=== PATIENT | female | born 1950 | race African-American/Black ===

== ENCOUNTER 2017-06-25 12:19 | Emergency (ER) | payer OTHER ==
[~2017-06-25] VITALS: Ht 163.8 cm; Wt 93.9 kg
[~2017-06-25 12:19] MED LIST: ASPIRIN EC81 MG PO; AZOR 5-40 MG T1 EACH PO; CEFUROXIME250 MG PO; CELEXA20 MG PO; CORICIDIN HBP1 EACH PO; GABAPENTIN300 MG PO; HYDROCHLOROTHIA25 MG PO; ISOSORBIDE MONO30 MG PO; LETROZOLE2.5 MG PO; LEVEMIR 3M100 UNITS/ SQ; LOSARTAN POTAS100 MG PO; LUNESTA3 MG PO; MOTRIN800 MG PO; NASONEX17 GM; NOVOLOG100 UNITS1; PROVENTIL HFA6.7 GM; TRADJENTA5 MG PO; VERAPAMIL ER120 MG PO
--- OUTSIDE RECORDS SUMMARY | 2017-06-25 12:22 | XMS REPORT | Clinical Summary ---
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 Disp. Refills Start End Date Status Date gabapentin (NEURONTIN) Take 600 mg by mouth Active 600 MG tablet nightly . hydrochlorothiazide Take 50 mg by mouth Active (HYDRODIURIL) 50 MG daily. tablet FOLIC Take 1 tablet by mouth Active ACID/MULTIVITS-MIN/LUT daily. (CENTRUM SILVER ORAL) cholecalciferol, vitamin Take 1,000 Units by mouth Active D3, 1,000 unit capsule daily. letrozole (FEMARA) 2.5 mg Take 2.5 mg by mouth Active tablet daily. diphenhydrAMINE Take 25 mg by mouth every Active (BENADRYL) 25 mg capsule night as needed for Itching (also for itching as well as sleeep aid). linagliptin 5 mg Tab Take 5 mg by mouth Active nightly . insulin aspart (NOVOLOG) Inject 15 Units Active 100 unit/mL InPn subcutaneously 3 (three) times daily with meals. insulin detemir (LEVEMIR) Inject 45 Units Active 100 unit/mL injection subcutaneously daily. verapamil (CALAN-SR) 240 Take 360 mg by mouth Active MG CR tablet nightly. isosorbide mononitrate Take 60 mg by mouth Active (IMDUR) 60 MG 24 hr nightly. tablet DULoxetine (CYMBALTA) 30 Take 30 mg by mouth Active MG capsuleIndications: nightly. Diabetic Peripheral Neuropathy ranolazine (RANEXA) 500 Take 500 mg by mouth 2 Active MG 12 hr tablet (two) times daily. Active Problems Problem Noted Date Chest pain 09/10/2014 Social History Tobacco Use Types Packs/Day Years Used Date Never Smoker Alcohol Use Drinks/Week oz/Week Comments No Sex Assigned at Date Recorded Not on file Last Filed Vital Signs Not on file Plan of Treatment Not on file Results Not on fileafter 06/24/2016
--- OUTSIDE RECORDS SUMMARY | 2017-06-25 12:22 | XMS REPORT ---
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 Allergies, Adverse Reactions, Alerts This patient has no known allergies or adverse reactions. Medications This patient has no known medications. Encounters Start Date/Time End Date/Time Encounter Type Admission Type Attending Clinicians Care Facility Care Department Encounter ID 2017-01-29 09:14:00 2017-01-29 09:14:00 Outpatient David Ornelas [facility] [id number] Results Test Description Test Time Test Comments Text Results Atomic Results Result Comments CT ABDOMEN/PELVIS WO [place] [address] Patient Name: GHANSHYAM TAYLOR MR #: [id number] : 1950 Age/Sex: 66/F Req #: [id number] Adm Physician: Ordered by: MELIA SCHULTZ MD Report # : [id number] Location: ER Room/Bed: Procedure: [id number] CT/CT ABDOMEN/PELVIS WO Exam Date: 01/22/17 Exam Time: 2114 REPORT STATUS: Signed EXAM: CT ABDOMEN AND PELVIS without IV CONTRAST DATE: 01/22/2017 7:38 PM Time stamp on Exam: 6 hrs INDICATION: Left lower quadrant pain COMPARISON: February 05, 2016 CT of the abdomen and pelvis without IV contrast. TECHNIQUE: The abdomen and pelvis were scanned using a multidetector helical scanner. Coronal and sagittal reformations were obtained. Routine protocol performed. IV Contrast: None Oral Contrast: Gastrografin CTDIvol has been reviewed. It is below the limits set by the Radiation Protocol Committee (RPC). FINDINGS: LOWER THORAX: No consolidations LIVER: No masses BILIARY: The gallbladder has been removed. No ductal dilation. SPLEEN: No masses PANCREAS: No masses ADRENALS: No nodules KIDNEYS: No nephroureterolithiasis or hydronephrosis. GI TRACT: No distention, wall thickening or evidence of obstruction. Scattered colonic diverticuli without evidence of diverticulitis. Normal appendix. VESSELS: Unremarkable PERITONEUM/RETROPERITONEUM: No free air or fluid LYMPH NODES: No lymphadenopathy REPRODUCTIVE ORGANS: The uterus has been removed. Normal appearance of the right ovary. Nonspecific 3.2 x 2.1 cm left ovarian cyst. BLADDER: Decompressed SOFT TISSUES: Unremarkable BONES: No suspicious bone lesions. IMPRESSION: No nephroureterolithiasis. Scattered colonic diverticuli without evidence of diverticulitis. Nonspecific 3.2 cm left ovarian cyst. Signed by: Dr. William Aguilar M.D. on 01/22/2017 10:13 PM Dictated By: WILLIAM AGUILAR MD 12 Transcribed By : BRYANT on 01/22/172212 COPY TO: MELIA SCHULTZ MD
[2017-06-25 14:04] LABS: BILIRUBIN,URINE NEGATIVE (NEGATIVE); KETONES,URINE NEGATIVE (NEGATIVE); LEUKOCYTE ESTERASE ,URINE NEGATIVE (NEGATIVE); NITRITE,URINE NEGATIVE (NEGATIVE); PROTEIN,URINE DIPSTICK NEGATIVE (NEGATIVE); URINE UROBILINOGEN 0.2 mg/dL (0.2 - 1)
[2017-06-25 14:06] LABS: CLARITY,URINE CLEAR (CLEAR); COLOR,URINE YELLOW (YELLOW)
[2017-06-25 14:22] LABS: EPITHELIAL CELLS,URINE FEW /LPF
[2017-06-25] MEDS ORDERED: DIPHENHYDRAMINE HCL INJ 50 MG/ML VIAL IV ONE (14:45)
[2017-06-25] MEDS ORDERED: SODIUM CHLORIDE 0.9% 500ML 500 ML IV ONE (14:45)
[2017-06-25] MEDS ORDERED: METOCLOPRAMIDE HCL 10 MG/2ML VIAL IV ONE (14:45)
[2017-06-25 14:46] LABS: BASOPHILS % 0.3 % (0.0-1.0); EOSINOPHILS # (AUTO) 0.3 (0.0-0.4); EOSINOPHILS % 2.7 % (0.0-6.0); HEMATOCRIT 40.6 % (34.2-44.1); HEMOGLOBIN 12.9 g/dL (12.0-16.0); LYMPHOCYTES # (AUTO) 2.8 (1.0-3.2); LYMPHOCYTES % 30.8 % (18.0-39.1); MEAN CORPUSCULAR HEMOGLOBIN 24.7 pg (28-32); MEAN CORPUSCULAR HGB CONC 31.8 g/dL (31-35); MEAN CORPUSCULAR VOLUME 77.6 fL (81-99); MONOCYTES # (AUTO) 0.8 (0.2-0.8); MONOCYTES % 8.5 % (4.4-11.3); NEUTROPHILS # (AUTO) 5.3 (2.1-6.9); NEUTROPHILS % 57.4 % (38.7-80.0); PLATELET COUNT 233 x10e3/uL (140-360); RED BLOOD COUNT 5.23 x10e6/uL (3.6-5.1); RED CELL DISTRIBUTION WIDTH 15.7 % (11.7-14.4)
[2017-06-25 15:03] LABS: INR 0.98; PROTHROMBIN TIME 12.2 seconds (11.9-14.5)
[2017-06-25 15:04] LABS: PARTIAL THROMBOPLASTIN TIME 25.5 seconds (23.8-35.5)
[2017-06-25 15:13] LABS: ALBUMIN 3.8 g/dL (3.5-5.0); ALBUMIN/GLOBULIN RATIO 0.9 (0.8-2.0); ANION GAP 16.1 mmol/L (8-16); CALCIUM 9.2 mg/dL (8.4-10.2); CREATININE, SERUM 1.12 mg/dL (0.57-1.11); POTASSIUM 4.1 mmol/L (3.5-5.1)
--- NOTE | 2017-06-25 15:18 | Diagnostic Imaging Report ---
EXAMINATION: Head CT HISTORY: Headache, hypertension, dizziness, lightheadedness, unsteady gait for the last month COMPARISON: Head CT on 10/30/2016 and brain MRI on 01/26/2015 TECHNIQUE: Multidetector axial images were obtained without contrast from the foramen magnum to the vertex . The images were reconstructed using brain and bone algorithms. Thin section brain images were reformatted into coronal and sagittal planes. Intravenous contrast: None. Motion/streaking artifact limits the evaluation of the skull base and posterior cranial fossa. FINDINGS: Parenchyma: 1. Unchanged small chronic lacunar infarct in the right head/body of the caudate nucleus. Otherwise no abnormal density in the brain parenchyma. 2. No mass or hemorrhage. No CT evidence of acute territorial vascular insult. Extra-axial spaces:No abnormal density. No extra-axial fluid collections Brain volume: Normal for age. Ventricles: No hydrocephalus or displacement. Arteries: No density suggestive of thrombus. Dural sinuses: No abnormal density. Extra-axial spaces: No abnormal density. Foramen magnum: No mass, Chiari malformation, or basilar invagination. Sella: No obvious mass. Paranasal/mastoid sinuses: Imaged portions unremarkable. Skull/Scalp: No lytic or blastic lesions. No fractures. IMPRESSION: 1. No acute intracranial hemorrhage or cortical infarcts. 2. Unchanged small chronic lacunar infarct in the right basal ganglia. Signed by: Dr. Nina Willams M.D. on 06/25/2017 3:14 PM
[2017-06-25 15:19] LABS: CREATINE KINASE MB 1.4 ng/mL (0-5.0)
== END 2017-06-25 16:19 | disposition home or self-care (01) ==
LOC: ER 12:19
DX: G43.909 Migraine, unspecified, not intractable, without status migrainosus (principal); I10 Essential (primary) hypertension; E11.9 Type 2 diabetes mellitus without complications; Z85.3 Personal history of malignant neoplasm of breast
CPT/HCPCS: 36415; 70450; 80053; 81001; 82550; 82553; 84484; 85025; 85610; 85730; 87086; 93005; 99284; J1200; J2765; J7040

== ENCOUNTER 2018-07-03 10:13 | Emergency (ER) | payer OTHER ==
[~2018-07-03] VITALS: Ht 162.6 cm; Wt 93.9 kg
--- OUTSIDE RECORDS SUMMARY | 2018-07-03 10:16 | XMS REPORT | Clinical Summary ---
Author Author [facility] Address Unknown Phone Unavailable Care Team Providers Care Supervisor Forming And Tempering Name Role Phone Mikal Shaver PCP Allergies Comments Active Allergy Reactions Severity Noted Date hallucinations Zolpidem Rash High 09/10/2014 hallucinates Codeine Rash High 09/10/2014 Hydrocortisone Rash High 09/10/2014 Influenza Virus Vaccines Hives High 09/10/2014 Iodine And Iodide Hives High 09/10/2014 Containing Products Oxycodone Rash High 09/10/2014 Oxycodone 12/28/2015 Xqy-Lnrosouee-Huy Ketorolac Hives High 09/10/2014 Whole arm swells up Tuberculin Ppd High 09/10/2014 Cetirizine Rash High 09/10/2014 Medications End Date Status Medication Sig Dispensed Refills Start Date Active gabapentin (NEURONTIN) Take 600 mg 0 600 MG tablet by mouth nightly . Active hydrochlorothiazide Take 50 mg by 0 (HYDRODIURIL) 50 MG mouth daily. tablet Active FOLIC Take 1 tablet 0 ACID/MULTIVITS-MIN/LUT by mouth (CENTRUM SILVER ORAL) daily. Active cholecalciferol, vitamin Take 1,000 0 D3, 1,000 unit capsule Units by mouth daily. Active letrozole (FEMARA) 2.5 mg Take 2.5 mg 0 tablet by mouth daily. Active diphenhydrAMINE Take 25 mg by 0 (BENADRYL) 25 mg capsule mouth every night as needed for Itching (also for itching as well as sleeep aid). Active linagliptin 5 mg Tab Take 5 mg by 0 mouth nightly . Active insulin aspart (NOVOLOG) Inject 15 0 100 unit/mL InPn Units subcutaneousl y 3 (three) times daily with meals. Active insulin detemir (LEVEMIR) Inject 45 0 100 unit/mL injection Units subcutaneousl y daily. Active verapamil (CALAN-SR) 240 Take 360 mg 0 MG CR tablet by mouth nightly. Active isosorbide mononitrate Take 60 mg by 0 (IMDUR) 60 MG 24 hr mouth tablet nightly. Active DULoxetine (CYMBALTA) 30 Take 30 mg by 0 MG capsuleIndications: mouth Diabetic Peripheral nightly. Neuropathy Active ranolazine (RANEXA) 500 Take 500 mg 0 MG 12 hr tablet by mouth 2 (two) times daily. Active metoprolol (TOPROL-XL) 50 Take 50 mg by 0 MG 24 hr tablet mouth daily. Active melatonin 3 mg Tab tablet Take by 0 mouth. Active insulin degludec (TRESIBA Inject 0 FLEXTOUCH U-200) 200 subcutaneousl unit/mL (3 mL) InPn y. Active Problems Problem Noted Date Chest pain 09/10/2014 Encounters Care Team Description Date Type Specialty Mati Ann MD EXCISION,LESION CONJUNCTIVA 03/06/2018 Surgery Monika Chang MD 03/06/2018 Anesthesia Event Mati Ann MD 03/06/2018 Hospital Encounter after 07/02/2017 Social History Date Tobacco Use Types Packs/Day Years Used Never Smoker Smokeless Tobacco: Never Used Alcohol Use Drinks/Week oz/Week Comments No Sex Assigned at Date Recorded Not on file Industry Job Start Date Occupation Not on file Not on file Not on file Travel End Travel History Travel Start No recent travel history available. Last Filed Vital Signs Time Taken Vital Sign Reading 03/06/2018 10:48 AM [employer] Blood Pressure 140/60 03/06/2018 10:48 AM [employer] Pulse 79 03/06/2018 10:48 AM [employer] Temperature 36.7 C (98 F) 03/06/2018 10:48 AM [employer] Respiratory Rate 15 03/06/2018 10:48 AM [employer] Oxygen Saturation 98% - Inhaled Oxygen - Concentration 03/06/2018 9:17 AM [employer] Weight 93.9 kg (207 lb) 03/06/2018 9:17 AM [employer] Height 162.6 cm (5' 4") 03/06/2018 9:17 AM [employer] Body Mass Index 35.53 Plan of Treatment Not on file Procedures Comments Procedure Name Priority Date/Time Associated Diagnosis EXCISION,LESION 03/06/2018 Conjunctivochalasis, CONJUNCTIVA 10:10 AM [employer] right POCT-GLUCOSE METER Routine 03/06/2018 9:33 AM [employer] after 07/02/2017 Results * POC-Glucose meter (03/06/2018 9:33 AM [employer]) POC-Glucose Meter 124 (H)Comment: TESTED AT 70 - 110 mg/dL [facility] [address] [facility] [address] [facility] [address] Specimen Blood Performing Organization Address City/State/Zipcode Phone Number [facility] [address] [place] [address] MEDICAL CENTER after 07/02/2017 Insurance Payer Benefit Subscriber ID Type Phone Address Plan / Group [facility] [place] HMO xxxxxxxxx HMO/POS CARE POS SELECT CHOICE Advance Directives For more information, please contact: [address] [address] Date Inactivated Comments Code Status Date Activated 12/29/2015 11:35 PM Full Code 12/28/2015 4:51 PM This code status was determined by: Patient 09/11/2014 1:08 AM Full Code 09/10/2014 4:13 PM This code status was determined by: Patient
--- OUTSIDE RECORDS SUMMARY | 2018-07-03 10:19 | XMS REPORT | Continuity of Care Document ---
Author Author [facility] Interface Address Unknown Phone Unavailable Problems Problem Status Onset Date Classification Date Reported Comments Source Facial paresthesia Active 01/25/2015 Problem 06/25/2017 [facility] Right sided weakness Active 01/25/2015 Problem 06/25/2017 [facility] Discharge Diagnosis: Acute sinus infection 11/27/2014 11/30/2014 [facility] Discharge Diagnosis: Headache 11/27/2014 11/30/2014 [facility] ARM PAIN Active 11/26/2014 [facility] Discharge Diagnosis: Dizziness 07/20/2014 07/22/2014 [facility] Discharge Diagnosis: Hypertension 07/20/2014 07/22/2014 [facility] HIGH BLOOD PRESSSURE Active 07/19/2014 [facility] HIGH BLOOD PRESSURE Active 07/16/2014 [facility] Discharge Diagnosis: Acute headache 07/16/2014 07/19/2014 [facility] Discharge Diagnosis: Acute foot pain 07/16/2014 07/19/2014 [facility] Discharge Diagnosis: Facial numbness 07/16/2014 07/19/2014 [facility] Discharge Diagnosis: Pain of right thumb 07/16/2014 07/19/2014 [facility] CHEST PAIN Active 12/21/2013 [facility] CHEST PAINS Active 12/21/2013 [facility] Discharge Diagnosis: right knee pain 07/28/2013 07/30/2013 [facility] RT LEG PAIN Active 07/27/2013 [facility] LEG PAIN Active 06/04/2013 [facility] LEFT LEG PAIN Active 03/02/2013 [facility] BLEEDING Active 10/02/2012 [facility] RECTAL BLEEDING Active 10/02/2012 [facility] BRBPR,TACHYCARDIA Active 09/27/2012 [place] Pain in left arm Resolved 06/14/2011 Problem 12/01/2015 [facility], [facility] [place] Gastrointestinal bleeding Active Problem 04/29/2013 [facility] Asthma Resolved Problem 10/07/2012 [facility] Breast cancer Active Problem 10/07/2012 [facility] Breast lumpectomy<sup>1</sup> Active Problem 10/07/2012 1left [facility] Chest pain Active Problem 10/07/2012 [facility] Diabetes mellitus Resolved Problem 10/07/2012 [facility] Diverticulitis Resolved Problem 10/07/2012 [facility] DM - Diabetes mellitus Active Problem 10/07/2012 [facility] HTN - Hypertension Active Problem 10/07/2012 [facility] Hypertension Resolved Problem 10/07/2012 [facility] Pain in left arm Resolved Problem 10/07/2012 [facility] PTSD - Post-traumatic stress disorder<sup>2</sup> Active Problem 10/07/2012 2Pt stated within 1 week 4 members of her family all at different times. [facility] Asthma Resolved Problem 12/01/2015 [facility] [place] Breast cancer Active Problem 12/01/2015 [facility] Breast lumpectomy<sup>1</sup> Active Problem 12/01/2015 left [facility] [place] Chest pain Active Problem 12/01/2015 [facility] [place] Diabetes mellitus Resolved Problem 12/01/2015 [facility] [place] Diverticulitis Resolved Problem 12/01/2015 [facility] [place] DM - Diabetes mellitus Active Problem 12/01/2015 [facility], [facility] [place] Gastrointestinal bleeding Active Problem 12/01/2015 [facility], [facility] [place] HTN - Hypertension Active Problem 12/01/2015 [facility], [facility] [place] Hypertension Resolved Problem 12/01/2015 [facility], [facility] [place] PTSD - Post-traumatic stress disorder<sup>2</sup> Active Problem 12/01/2015 Pt stated within 1 week 4 members of her family all at different times. [facility] TACHYCARDIA NOS Active [facility] Datatype(DG1.4)- Active [facility] Medications Medication Details Route Status Patient Instructions Ordering Provider Order Date Source Aspirin (Aspirin Ec) 81 Mg Tablet. Daily Active Cedric 01/27/2015 [facility] Cefuroxime Axetil (Cefuroxime) 250 Mg Tablet Every 12 Hours Active Cedric 01/27/2015 [facility] Mometasone Furoate (Nasonex) 17 Gm Center Line Daily Active THERAPEUTICALLY SUBSTITUTED WITH FLONASE (FLUTICASONE) Cedric 01/27/2015 [facility] Amlodipine Bes/Olmesartan Med (Marco 5-40 Mg Tablet) 1 Each Tablet, 1 Tab Oral Daily Active 01/25/2015 [facility] Citalopram Hydrobromide (Celexa) 20 Mg Tablet, 20 Mg Oral Daily Active 01/25/2015 [facility] Eszopiclone (Lunesta) 3 Mg Tablet, 3 Mg Oral Bedtime Active 01/25/2015 [facility] Ibuprofen (Motrin) 800 Mg Tab, 800 Mg Oral Three Times A Day Active 01/25/2015 [facility] Azithromycin 5 Day Dose Pack 250 mg oral tablet See Instructions, Take 2 tablets by mouth the first day then 1 tablet by mouth days 2-5., X 5 day, # 6 tab, 0 Refill(s)Special Instructions: Take 2 tablets by mouth the first day then 1 tablet by mouth days 2-5. Active 11/27/2014 [facility] Reglan 10 mg, Route: IVP, Drug form: INJ, ONCE, Dosing Weight 93.182, kg, Priority: STAT, Start date: 11/26/14 22:12:00, Stop date: 11/26/14 22:12:00 Inactive 11/27/2014 [facility] Sodium Chloride 0.154 MEQ/ML Injectable Solution 500 mL, 500 ml/hr, Infuse Over: 1 Hour, Route: IV, ONCE, Priority: STAT, Dosing Weight 93.182 kg, Start date: 11/26/14 22:12:00, Duration: 1 doses or times, Stop date: 11/26/14 22:12:00 Inactive 11/27/2014 [facility] Reglan 10 mg, Route: IVP, Drug form: INJ, ONCE, Dosing Weight 88.182, kg, Priority: STAT, Start date: 07/19/14 23:45:00, Stop date: 07/19/14 23:45:00 No Longer Active 07/20/2014 [facility] Magnesium Sulfate 2 gm, 50 mL, Route: IVPB, Drug form: INJ, ONCE, Dosing Weight 88.182, kg, Total dose=2 gm, Start date: 07/19/14 23:45:00, Duration: 1 doses or times, Stop date: 07/19/14 23:45:00 No Longer Active 07/20/2014 [facility] Dexamethasone 10 mg, Route: IVP, ONCE, Dosing Weight 88.182, kg, Priority: STAT, Start date: 07/19/14 23:45:00, Stop date: 07/19/14 23:45:00 No Longer Active 07/20/2014 [facility] Benadryl 25 mg, Route: IVP, ONCE, Dosing Weight 88.182, kg, Priority: STAT, Start date: 07/19/14 23:45:00, Stop date: 07/19/14 23:45:00 No Longer Active 07/20/2014 [facility] Ketorolac 30 mg, Route: IVP, Drug form: INJ, ONCE, Dosing Weight 88.636, kg, Priority: STAT, Start date: 07/16/14 22:40:00, Stop date: 07/16/14 22:40:00 Inactive 07/17/2014 [facility] Benadryl 12.5 mg, 0.25 mL, Route: IVP, Drug form: INJ, ONCE, Dosing Weight 88.636, kg, Priority: STAT, Start date: 07/16/14 20:59:00, Stop date: 07/16/14 20:59:00Notes: (Same as: Benadryl) Inactive 07/17/2014 [facility] Reglan 10 mg, 2 mL, Route: IVP, Drug form: INJ, ONCE, Dosing Weight 88.636, kg, Priority: STAT, Start date: 07/16/14 20:59:00, Stop date: 07/16/14 20:59:00Notes: (Same as: Reglan) Inactive 07/17/2014 [facility] aspirin 325 mg tablet 325 mg, 1 tab, Route: PO, Drug form: TAB, Daily, Dosing Weight 86.364, kg, Start date: 12/24/13 9:00:00, Duration: 30 day, Stop date: 01/22/14 9:00:00Notes: Take with food. Inactive 12/24/2013 [facility] Restoril 7.5 mg, 1 cap, Route: PO, Drug form: CAP, Bedtime, PRN Insomnia, Start date: 12/23/13 22:04:00, Duration: 30 day, Stop date: 01/22/14 22:03:00Notes: (Same As: Restoril) No Longer Active 12/24/2013 [facility] Ambien 5 mg, Route: PO, Bedtime, Dosing Weight 88.182, kg, PRN Insomnia, Start date: 12/23/13 21:47:00, Duration: 30 day, Stop date: 01/22/14 21:46:00 Inactive 12/24/2013 [facility] Saline Flush 0.9% 5 ml, Route: IVP, Drug Form: INJ, Dosing Weight 86.364, kg, Q12H, Start date: 12/23/13 21:00:00, Duration: 30 day, Stop date: 01/22/14 9:00:00Notes: (Same as: BD Posiflush) No Longer Active 12/24/2013 [facility] atropine 0.5 mg, 5 mL, Route: IVP, Drug form: INJ, PRN, PRN Bradycardia, Start date: 12/23/13 18:56:00, Duration: 30 day, Stop date: 01/22/14 18:55:00 No Longer Active 12/23/2013 [facility] Insulin, Aspart, Human 10 unit, 0.1 mL, Route: SUB-Q, Drug form: SOLN, Sliding Scale, Dosing Weight 86.364, kg, PRN Blood Glucose Results, Start date: 12/23/13 17:08:00, Duration: 30 day, Stop date: 01/22/14 17:07:00Notes: Roll in palms of hands gently; Do not shake vigorously. (Same as: NovoLOG) "single patient use only" Stable for 28 days at room temperature. Expires in days from Date No Longer Active 12/23/2013 [facility] Glucagon 1 mg, Route: IM, Drug form: PDR/INJ, PRN, Dosing Weight 86.364, kg, PRN Blood Glucose Results, Start date: 12/23/13 17:08:00, Duration: 30 day, Stop date: 01/22/14 17:07:00 No Longer Active 12/23/2013 [facility] Dextrose 50% Syringe 25 gm, 50 mL, Route: IVP, Drug Form: INJ, Dosing Weight 86.364, kg, PRN, PRN Blood Glucose Results, Start date: 12/23/13 17:08:00, Duration: 30 day, Stop date: 01/22/14 17:07:00 No Longer Active 12/23/2013 [facility] Saline Flush 0.9% 5 ml, Route: IVP, Drug Form: INJ, Dosing Weight 86.364, kg, PRN, PRN Line Flush, Start date: 12/23/13 17:06:00, Duration: 30 day, Stop date: 01/22/14 17:05:00Notes: (Same as: BD Posiflush) No Longer Active 12/23/2013 [facility] Nitroglycerin 0.4 mg, 1 tab, Route: SL, Drug form: TAB, Q5Min, Dosing Weight 86.364, kg, PRN Chest Pain, Start date: 12/23/13 17:06:00, Duration: 3 doses or times, Stop date: Limited # of timesNotes: (Same as:Nitroqu ick, Nitrostat) "Do Not Crush" Sublingual tablet No Longer Active 12/23/2013 [facility] Enoxaparin 40 mg, Route: SUB-Q, Drug form: INJ, [id number], Dosing Weight 86.364, kg, Start date: 12/23/13 17:00:00, Duration: 30 day, Stop date: 01/21/14 17:00:00 Inactive 12/23/2013 [facility] Enoxaparin 80 mg, 0.8 mL, Route: SUB-Q, Drug form: INJ, ONCE, Dosing Weight 86.364, kg, Priority: STAT, Start date: 12/23/13 16:57:00, Stop date: 12/23/13 16:57:00Notes: Nurse to ensure documentation of patient ed ucation per anticoagulation policy. (Same as: Lovenox) Inactive 12/23/2013 [facility] metoprolol tartrate 25 mg, 1 tab, Route: PO, Drug form: TAB, BID, Dosing Weight 86.364, kg, Priority: STAT, Start date: 12/23/13 16:55:00, Duration: 30 day, Stop date: 01/22/14 9:00:00Notes: (Same as: Lopressor) No Longer Active 12/23/2013 [facility] Hydrochlorothiazide 25 MG Oral Tablet 25 mg=1 tab, PO, Daily, # 30 tab, 0 Refill(s) Active 12/23/2013 [facility] Linagliptin 5 MG Oral Tablet [Tradjenta] 5 mg=1 tab, PO, Daily, 0 Refill(s) Active 12/23/2013 [facility] 3 ML Insulin, Aspart, Human 100 UNT/ML Prefilled Syringe [NovoLog] 10 unit, SUB-Q, TID-Before Meals, # 3 mL, 0 Refill(s) Active 12/23/2013 [facility] meloxicam 7.5 mg oral tablet 7.5 mg=1 tab, PO, BID, # 30 tab, 0 Refill(s) Active 12/23/2013 [facility] Morphine 2 mg, Route: IVP, Drug form: INJ, ONCE, Dosing Weight 86.364, kg, Priority: STAT, Start date: 12/23/13 15:28:00, Stop date: 12/23/13 15:28:00 Inactive 12/23/2013 [facility] Ondansetron 4 mg, 2 mL, Route: IVP, Drug form: INJ, ONCE, Dosing Weight 86.364, kg, Priority: STAT, Start date: 12/23/13 13:44:00, Stop date: 12/23/13 13:44:00Notes: (Same as: Zofran) Inactive 12/23/2013 [facility] aspirin 324 mg, 4 tab, Route: PO, Drug form: CHEWTAB, ONCE, Dosing Weight 86.364, kg, Priority: STAT, Start date: 12/23/13 13:44:00, Stop date: 12/23/13 13:44:00Notes: Take with food. Inactive 12/23/2013 [facility] Saline Flush 0.9% 10 mL, Route: IVP, Drug Form: INJ, Dosing Weight 86.364, kg, PRN, PRN Line Flush, Start date: 12/23/13 13:44:00, Duration: 30 day, Stop date: 01/22/14 13:43:00Notes: (Same as: BD Posiflush) Inactive 12/23/2013 [facility] Naproxen 500 MG Oral Tablet [Naprosyn] 500 mg=1 tab, PO, BID, for pain, # 20 tab, 0 Refill(s) Active 07/28/2013 [facility] Ketorolac 30 mg, Route: IVP, Drug form: INJ, ONCE, Dosing Weight 89.091, kg, Priority: STAT, Start date: 07/28/13 2:31:00, Stop date: 07/28/13 2:31:00 Inactive 07/28/2013 [facility] Zofran 4 mg, Route: IVP, Drug form: INJ, ONCE, Dosing Weight 89.091, kg, Priority: STAT, Start date: 07/27/13 23:32:00, Stop date: 07/27/13 23:32:00 Inactive 07/28/2013 [facility] Morphine 4 mg, Route: IVP, Drug form: INJ, ONCE, Dosing Weight 89.091, kg, Priority: STAT, Start date: 07/27/13 23:32:00, Stop date: 07/27/13 23:32:00 Inactive 07/28/2013 [facility] Zofran ODT 4 mg, 1 tab, Route: PO, Drug form: TABDIS, ONCE, Dosing Weight 89.091, kg, Priority: STAT, Start date: 07/27/13 23:10:00, Stop date: 07/27/13 23:10:00Notes: (Same as: Zofran ODT) Inactive 07/28/2013 [facility] Morphine 4 mg, 2 mL, Route: IM, Drug form: INJ, ONCE, Dosing Weight 89.091, kg, Priority: STAT, Start date: 07/27/13 23:10:00, Stop date: 07/27/13 23:10:00Notes: (Same as:MORPhine Sulfate) Inactive 07/28/2013 [facility] Ultram 50 mg oral tablet 50 mg, Route: PO, Drug form: TAB, ONCE, Dosing Weight 89.091, kg, Priority: STAT, Start date: 06/04/13 12:48:00, Stop date: 06/04/13 12:48:00 Inactive William 06/04/2013 [facility] Ultram 50 mg oral tablet 1 - 2 tabs, PO, Q4-6H, as needed for pain, # 30 tab, 0 Refill(s) Active William 06/04/2013 [facility] Prilosec OTC 20 mg oral enteric coated tablet 20 mg=1 tab, PO, BID, # 60 tab, 0 Refill(s) Active Jonathan 04/27/2013 [facility] GI cocktail 30 mL, Route: PO, Dosing Weight 85.909, kg, ONCE, STAT, Start date: 04/27/13 16:07:00, Stop date: 04/27/13 16:07:00 Inactive [facility] 04/27/2013 [facility] morphine Sulfate 2 mg, Route: IM, Drug form: INJ, ONCE, Dosing Weight 85.909, kg, Priority: STAT, Start date: 04/27/13 13:27:00, Stop date: 04/27/13 13:27:00 Inactive [facility] 04/27/2013 [facility] aspirin 324 mg, Route: PO, ONCE, Dosing Weight 85.909, kg, Priority: STAT, Start date: 04/27/13 12:48:00, Stop date: 04/27/13 12:48:00 Inactive [facility] 04/27/2013 [facility] Saline Flush 0.9% 5 mL, Route: IVP, Drug Form: INJ, Dosing Weight 85.909, kg, Q8H, PRN Line Flush, Start date: 04/27/13 12:48:00, Duration: 30 day, Stop date: 05/27/13 12:47:00, Administer at least once every 8 hoursAdminister at least once every 8 hoursSame as: BD Posiflush Sterile Inactive [facility] 04/27/2013 [facility] MiraLax 17 gm, 1 pkt, Route: PO, Drug form: PWDR, Daily, Dosing Weight 86.364, kg, Start date: 10/05/12 9:00:00, Duration: 30 day, Stop date: 11/03/12 9:00:00 PO No Longer Active [facility] 10/05/2012 [facility] psyllium 3.4 gm, 1 pkt, Route: PO, Drug Form: PDR/REC, Dosing Weight 86.364, kg, BID, Start date: 10/04/12 17:00:00, Duration: 30 day, Stop date: 11/03/12 9:00:00 PO No Longer Active [facility] 10/04/2012 [facility] hydrocortisone 25 mg rectal suppository 25 mg, 1 supp, Route: ID, Bedtime, Drug form: SUPP, Start date: 10/03/12 21:00:00, Duration: 30 day, Stop date: 11/01/12 21:00:00 ID No Longer Active [facility] 10/04/2012 [facility] hydrocortisone 25 mg, Route: ID, Bedtime, Dosing Weight 86.364, kg, Start date: 10/03/12 21:00:00, Duration: 30 day, Stop date: 11/01/12 21:00:00 ID No Longer Active [facility] 10/04/2012 [facility] hydrocortisone 2.5% rectal cream with applicator 1 appl, Route: ID, BID, Drug form: CRM/A, Start date: 10/03/12 17:00:00, Duration: 30 day, Stop date: 11/02/12 9:00:00 ID No Longer Active [facility] 10/03/2012 [facility] hydrocortisone-pramoxine topical 2.5%-1% cream 1 appl, Route: ID, BID, Start date: 10/03/12 17:00:00, Duration: 30 day, Stop date: 11/02/12 9:00:00 ID No Longer Active [facility] 10/03/2012 [facility] pantoprazole 40 mg, Route: IVP, Drug form: INJ, Before Dinner, Dosing Weight 86.364, kg, Priority: Routine, Start date: 10/03/12 16:30:00, Duration: 30 day, Stop date: 11/01/12 16:30:00 [facility] Restoril 15 mg, 1 cap, Route: PO, Drug form: CAP, Bedtime, Dosing Weight 86.364, kg, PRN Sleep, Start date: 10/03/12 14:48:00, Duration: 30 day, Stop date: 11/02/12 14:47:00 PO No Longer Active [facility] 10/03/2012 [facility] Zofran 4 mg, 2 mL, Route: IVP, Drug form: INJ, Q4H, Dosing Weight 86.364, kg, PRN Nausea, Start date: 10/03/12 14:48:00, Duration: 30 day, Stop date: 11/02/12 14:47:00 IVP No Longer Active [facility] 10/03/2012 [facility] Tylenol 650 mg, 2 tab, Route: PO, Drug form: TAB, Q6H, Dosing Weight 86.364, kg, PRN Pain Score 1-3, Start date: 10/03/12 14:48:00, Duration: 30 day, Stop date: 11/02/12 14:47:00 PO No Longer Active [facility] 10/03/2012 [facility] Fioricet 1 tab, Route: PO, Drug Form: TAB, Dosing Weight 86.364, kg, Q6H, PRN Headache, Start date: 10/03/12 11:26:00, Duration: 30 day, Stop date: 11/02/12 11:25:00 PO No Longer Active [facility] 10/03/2012 [facility] hydrocortisone-pramoxine topical 2.5%-1% cream 1 appl, ID, BID, 30 gm, 2, 2, Substitution Allowed, CRM ID Active [facility] 10/03/2012 [facility] olmesartan 20 mg, Route: PO, Drug form: TAB, Daily, Dosing Weight 86.364, kg, Start date: 10/03/12 9:00:00, Duration: 30 day, Stop date: 11/01/12 9:00:00 PO No Longer Active [facility] 10/03/2012 [facility] letrozole 2.5 mg, 1 tab, Route: PO, Drug form: TAB, Daily, Dosing Weight 86.364, kg, Start date: 10/03/12 9:00:00, Stop date: 11/01/12 9:00:00 PO No Longer Active [facility] 10/03/2012 [facility] citalopram 20 mg, 1 tab, Route: PO, Drug form: TAB, Daily, Dosing Weight 86.364, kg, Start date: 10/03/12 9:00:00, Duration: 30 day, Stop date: 11/01/12 9:00:00 PO No Longer Active [facility] 10/03/2012 [facility] Norvasc 5 mg, 1 tab, Route: PO, Drug form: TAB, Daily, Start date: 10/03/12 9:00:00, Duration: 30 day, Stop date: 11/01/12 9:00:00 PO No Longer Active [facility] 10/03/2012 [facility] Marco 5 mg-20 mg oral tablet 1 tab, Route: PO, Drug Form: TAB, Dosing Weight 86.364, kg, Daily, Start date: 10/03/12 9:00:00, Duration: 30 day, Stop date: 11/01/12 9:00:00 PO No Longer Active 10/03/2012 [facility] morphine Sulfate 2 mg, 1 mL, Route: IV, Drug form: INJ, Q3H, Dosing Weight 86.364, kg, PRN as needed for pain, Priority: NOW, Start date: 10/03/12 5:26:00, Duration: 30 day, Stop date: 11/02/12 5:25:00 IV No Longer Active 10/03/2012 [facility] Tylenol 650 mg, 20.3 mL, Route: PO, Drug form: LIQ, Q6H, Dosing Weight 86.364, kg, PRN as needed for pain, Priority: NOW, Start date: 10/03/12 5:26:00, Duration: 30 day, Stop date: 11/02/12 5:25:00 PO No Longer Active 10/03/2012 [facility] NS 0.45% IV 1,000 mL 1,000 mL, Rate: 100 ml/hr, Infuse over: 10 hr, Route: IV, Dosing Weight 86.364 kg, Total Volume: 1,000, Start date: 10/03/12 4:52:00, Duration: 1 day, Stop date: 10/04/12 4:51:00 IV No Longer Active 10/03/2012 [facility] Midrin 1 cap, Route: PO, Drug Form: CAP, Dosing Weight 86.364, kg, TID, PRN as needed for headache, Start date: 10/03/12 4:38:00, Stop date: 11/02/12 4:37:00 PO No Longer Active [facility] citalopram 20 mg, PO, Daily, Substitution Allowed PO On Hold 10/03/2012 [facility] letrozole 2.5 mg, PO, Daily, Substitution Allowed PO On Hold 10/03/2012 [facility] olmesartan 20 mg, 1 tab, PO, Daily, 30 tab, Substitution Allowed PO On Hold 10/03/2012 [facility] Zofran 4 mg, 2 mL, Route: IV, Drug form: INJ, Q4H, Dosing Weight 86.364, kg, PRN as needed for nausea/vomiting, Start date: 10/03/12 3:17:00, Duration: 30 day, Stop date: 11/02/12 3:16:00 IV No Longer Active [facility] 10/03/2012 [facility] Midrin PO, PRN, as needed for migraine headache, Substitution Allowed, Maintenance PO On Hold [facility] 10/03/2012 [facility] Benadryl 25 mg, 1 tab, Route: PO, Drug form: TAB, Bedtime, Dosing Weight 86.364, kg, PRN Insomnia, Start date: 10/03/12 3:15:00, Duration: 30 day, Stop date: 11/02/12 3:14:00 PO No Longer Active [facility] 10/03/2012 [facility] insulin aspart 8 unit, 0.08 mL, Route: SUB-Q, Drug form: SOLN, Sliding Scale, Dosing Weight 86.364, kg, PRN Blood Glucose Results, Start date: 10/03/12 3:11:00, Duration: 30 day, Stop date: 11/02/12 3:10:00 SUB-Q No Longer Active [facility] 10/03/2012 [facility] Dextrose 50% Syringe 12.5 gm, 25 mL, Route: IVP, Drug Form: INJ, Dosing Weight 86.364, kg, PRN, PRN Blood Glucose Results, Start date: 10/03/12 3:11:00, Duration: 30 day, Stop date: 11/02/12 3:10:00 IVP No Longer Active [facility] 10/03/2012 [facility] glucagon 1 mg, Route: IM, Drug form: PDR/INJ, PRN, Dosing Weight 86.364, kg, PRN Blood Glucose Results, Start date: 10/03/12 3:11:00, Duration: 30 day, Stop date: 11/02/12 3:10:00 IM No Longer Active [facility] 10/03/2012 [facility] ondansetron 4 mg, Route: IVP, ONCE, Dosing Weight 86.364, kg, PRN Nausea & Vomiting, Start date: 10/03/12 3:11:00 IVP No Longer Active [facility] 10/03/2012 [facility] Saline Flush 0.9% 5 ml, Route: IVP, Drug Form: INJ, Dosing Weight 86.364, kg, PRN, PRN Line Flush, Start date: 10/03/12 3:11:00, Duration: 30 day, Stop date: 11/02/12 3:10:00 IVP No Longer Active [facility] 10/03/2012 [facility] Sodium Chloride 0.9% IV 1,000 mL 1,000 mL, Rate: 100 ml/hr, Infuse over: 10 hr, Route: IV, Dosing Weight 86.364 kg, Total Volume: 1,000, Start date: 10/03/12 3:11:00, Duration: 30 day, Stop date: 11/02/12 3:10:00 [facility] atropine 0.5 mg, 5 mL, Route: IVP, Drug form: INJ, PRN, PRN Bradycardia, Start date: 10/03/12 3:05:00, Duration: 30 day, Stop date: 11/02/12 3:04:00 IVP No Longer Active [facility] 10/03/2012 [facility] olmesartan 20 mg oral tablet 20 mg, 1 tab, PO, Daily, 30 tab, Substitution Allowed, TAB PO Active [facility] 09/30/2012 [facility] citalopram 20 mg oral tablet 20 mg, 1 tab, PO, Daily, 1 tab, Substitution Allowed, TAB PO Active [facility] 09/30/2012 [facility] letrozole 2.5 mg oral tablet 2.5 mg, 1 tab, PO, Daily, 30 tab, Substitution Allowed, TAB PO Active [facility] 09/30/2012 [facility] Sodium Chloride 0.9% IV 1,000 mL 1,000 mL, Rate: 25 ml/hr, Infuse over: 40 hr, Route: IV, Dosing Weight 86.619 kg, Total Volume: 1,000, Start date: 09/29/12 14:48:00, Duration: 2 day, Stop date: 10/01/12 14:47:00 IV No Longer Active [facility] 09/29/2012 [facility] letrozole 2.5 mg, 1 tab, Route: PO, Drug form: TAB, Daily, Dosing Weight 86.619, kg, Start date: 09/29/12 9:00:00, Stop date: 10/28/12 9:00:00 PO No Longer Active [facility] 09/29/2012 [facility] citalopram 20 mg, 1 tab, Route: PO, Drug form: TAB, Daily, Dosing Weight 86.619, kg, Start date: 09/29/12 9:00:00, Duration: 30 day, Stop date: 10/28/12 9:00:00 PO No Longer Active [facility] 09/29/2012 [facility] Marco 5 mg-20 mg oral tablet 1 tab, Route: PO, Drug Form: TAB, Dosing Weight 86.619, kg, Daily, Start date: 09/29/12 9:00:00, Duration: 30 day, Stop date: 10/28/12 9:00:00 PO No Longer Active [facility] 09/29/2012 [facility] Protonix 40 mg, 1 tab, Route: PO, Drug form: ECTAB, Before Dinner, Dosing Weight 86.619, kg, Start date: 09/28/12 16:30:00, Stop date: 10/27/12 16:30:00 PO No Longer Active [facility] 09/28/2012 [facility] NovoLog FlexPen 4 unit, 0.04 mL, Route: SUB-Q, Drug form: SOLN, Bedtime, PRN Blood Glucose Results, Start date: 09/28/12 13:41:00, Duration: 30 day, Stop date: 10/28/12 13:40:00 SUB-Q No Longer Active [facility] 09/28/2012 [facility] Dextrose 50% in Water IV 50 mL, Route: IVP, Start date: 09/28/12 13:40:00, Duration: 30 day, Stop date: 10/28/12 13:39:00, PRN Blood Glucose Results IVP No Longer Active [facility] 09/28/2012 [facility] glucagon 1 mg, Route: IM, Drug form: PDR/INJ, PRN, PRN Blood Glucose Results, Start date: 09/28/12 13:39:00, Duration: 30 day, Stop date: 10/28/12 13:38:00 IM No Longer Active [facility] 09/28/2012 [facility] NovoLog FlexPen 8 unit, 0.08 mL, Route: SUB-Q, Drug form: SOLN, Sliding Scale, PRN Blood Glucose Results, Start date: 09/28/12 13:39:00, Duration: 30 day, Stop date: 10/28/12 13:38:00 SUB-Q No Longer Active [facility] 09/28/2012 [facility] NovoLog FlexPen 2 unit, 0.02 mL, Route: SUB-Q, Drug form: SOLN, Sliding Scale, PRN Blood Glucose Results, Start date: 09/28/12 13:38:00, Duration: 30 day, Stop date: 10/28/12 13:37:00 SUB-Q No Longer Active [facility] 09/28/2012 [facility] Benicar 20 mg, 1 tab, Route: PO, Drug form: TAB, Daily, Start date: 09/28/12 13:30:00, Duration: 30 day, Stop date: 10/28/12 9:00:00 PO No Longer Active [facility] 09/28/2012 [facility] Norvasc 5 mg, 1 tab, Route: PO, Drug form: TAB, Daily, Start date: 09/28/12 13:30:00, Duration: 30 day, Stop date: 10/28/12 9:00:00 PO No Longer Active [facility] 09/28/2012 [facility] GoLYTELY Route: PO, Drug Form: PDR/REC, Dosing Weight 86.619, kg, ONCE, Start date: 09/28/12 13:03:00, Duration: 1 doses or times, Stop date: 09/28/12 13:03:00, Substitute Allowed: Always PO No Longer Active [facility] 09/28/2012 [facility] normal saline 0.9% IV 1,000 mL 1,000 mL, Rate: 100 ml/hr, Infuse over: 10 hr, Route: IV, Dosing Weight 86.619 kg, Total Volume: 1,000, Start date: 09/28/12 12:54:00, Duration: 30 day, Stop date: 10/28/12 12:53:00 IV No Longer Active [facility] 09/28/2012 [facility] Zofran 4 mg, 2 mL, Route: IVP, Drug form: INJ, Q8H, Dosing Weight 86.619, kg, PRN Nausea, Start date: 09/28/12 12:54:00, Duration: 30 day, Stop date: 10/28/12 12:53:00 IVP No Longer Active [facility] 09/28/2012 [facility] Tylenol 650 mg, 2 tab, Route: PO, Drug form: TAB, Q6H, Dosing Weight 86.619, kg, PRN Pain, Start date: 09/28/12 12:54:00, Duration: 30 day, Stop date: 10/28/12 12:53:00 PO No Longer Active [facility] 09/28/2012 [facility] nitroglycerin 0.4 mg sublingual tablet 0.4 mg, 1 tab, Route: SL, Drug form: TAB, Q5Min, PRN Chest Pain, Start date: 09/28/12 5:48:00, Duration: 30 day, Stop date: 10/28/12 5:47:00 SL No Longer Active [facility] atropine 0.5 mg, 5 mL, Route: IVP, Drug form: INJ, PRN, PRN Bradycardia, Start date: 09/28/12 5:48:00, Duration: 30 day, Stop date: 10/28/12 5:47:00 IVP No Longer Active [facility] 09/28/2012 [facility] Sodium Chloride 0.9% (titrate) 250 mL 250 mL, Rate: auxiliary equipment tender for use with blood product administration, Dosing Weight 86.364, kg, Route: IV, Total Volume: 250, Duration: 30 day, Stop date: 10/27/12 19:59:00, Replace Every: 24 hr IV No Longer Active [facility] 09/28/2012 [facility] ondansetron 4 mg, 2 mL, Route: IVP, Drug form: INJ, ONCE, Dosing Weight 86.364, kg, PRN Nausea & Vomiting, Start date: 09/27/12 19:55:00 IVP No Longer Active [facility] 09/28/2012 [facility] Saline Flush 0.9% 5 ml, Route: IVP, Drug Form: INJ, Dosing Weight 86.364, kg, PRN, PRN Line Flush, Start date: 09/27/12 19:55:00, Duration: 30 day, Stop date: 10/27/12 19:54:00 IVP No Longer Active [facility] 09/28/2012 [facility] Sodium Chloride 0.9% IV 1,000 mL 1,000 mL, Rate: 125 ml/hr, Infuse over: 8 hr, Route: IV, Dosing Weight 86.364 kg, Total Volume: 1,000, Start date: 09/27/12 19:55:00, Duration: 30 day, Stop date: 10/27/12 19:54:00 IV No Longer Active [facility] 09/28/2012 [facility] Levemir FlexPen 100 units/mL subcutaneous solution 29 unit, SUB-Q, Bedtime, 3 ml, Substitution Allowed, SOLN SUB-Q Active 09/28/2012 [facility] citalopram 20 mg oral tablet 20 mg, 1 tab, PO, Daily, 30 tab, Substitution Allowed, TAB PO No Longer Active [facility] 09/28/2012 [facility] letrozole 2.5 mg oral tablet 2.5 mg, 1 tab, PO, Daily, 10 tab, Substitution Allowed, TAB PO No Longer Active [facility] 09/28/2012 [facility] Janumet 50 mg/1000 mg oral tablet 2 tab, PO, QAM, 60 tab, Substitution Allowed, Maintenance, TAB PO Active 09/28/2012 [facility] NS (Bolus) IV 500 mL 500 mL, Rate: 500 ml/hr, Infuse over: 1 hr, Route: IV, Dosing Weight 86.364 kg, Total Volume: 500, Priority: STAT, Start date: 09/27/12 16:23:00, Duration: 1 doses or times, Stop date: 09/27/12 17:22:00, Bolus DoseBolus Dose IV No Longer Active [facility] 09/27/2012 [facility] Sodium Chloride 0.9% (titrate) 250 mL 250 mL, Rate: Help Desk Analyst for use with blood product administration., Dosing Weight 86.364, kg, Route: IV, Total Volume: 250, Priority: Routine, Duration: 30 day, Stop date: 10/27/12 16:13:00, Replace Every: 24 hr IV No Longer Active [facility] 09/27/2012 [facility] pantoprazole 40 mg, Route: IVP, ONCE, Dosing Weight 86.364, kg, For IV push reconstitute with 10 ml 0.9% sodium chloride and push over at least 3 minutes, Priority: STAT, Start date: 09/27/12 16:13:00, Stop date: 09/27/12 16:13:00 IVP No Longer Active [facility] 09/27/2012 [facility] Saline Flush 0.9% 5 mL, Route: IVP, Drug Form: INJ, Dosing Weight 86.364, kg, PRN, PRN Line Flush, Start date: 09/27/12 16:13:00, Duration: 24 hr, Stop date: 09/28/12 16:12:00 IVP No Longer Active [facility] 09/27/2012 [facility] tetanus toxoid 0.5 ml, Route: IM, Drug Form: INJ, ONCE, STAT, Start date: 08/10/11 19:48:00, Stop date: 08/10/11 19:48:00Keep refrigerated. Inactive Gust[facility] 08/11/2011 [facility] Acetaminophen/Chlorpheniramine (Coricidin Hbp Tablet) 1 Each Tablet Q4hrs Active [facility] Albuterol Sulfate (Proventil Hfa) 6.7 Gm Hfa.aer.ad Active [facility] Gabapentin 300 Mg Capsule Three Times A Day Active [facility] Hydrochlorothiazide 25 Mg Tablet Daily Active [facility] Insulin Aspart (Novolog) 100 Units/1 Ml Inj Active [facility] Insulin Detemir (Levemir 3ML Flexpen*) 100 Units/Ml Inj Bedtime Active [facility] Isosorbide Mononitrate (Isosorbide Mononitrate Er) 30 Mg Tab.er.24h Daily Active [facility] Letrozole 2.5 Mg Tablet Daily Active [facility] Linagliptin (Tradjenta) 5 Mg Tablet Daily Active [facility] Losartan Potassium 100 Mg Tablet Daily Active [facility] Verapamil Hcl (Verapamil Er) 120 Mg Cap24h.pel Daily Active [facility] Allergies, Adverse Reactions, Alerts Substance Category Reaction Severity Reaction type Status Date Reported Comments Source Zolpidem HALLUCINATIONS Intermediate Allergy to Substance Active 01/25/2015 [facility] Iodine Unknown Allergy to Substance Active 02/05/2016 [facility] Codeine Unknown Allergy to Substance Active 02/05/2016 [facility] Hydrocodone Unknown Allergy to Substance Active 02/05/2016 [facility] Oxycodone Unknown Allergy to Substance Active 02/05/2016 [facility] Aspirin Unknown Allergy to Substance Active 02/05/2016 [facility] ADHESIVE TAPE Unknown Allergy to Substance Active 02/05/2016 [facility] dulaglutide Mild Allergy to Substance Active 06/25/2017 [facility] Ambien Assertion Drug allergy Active [facility] codeine Assertion Percodan Drug allergy Active [facility] flu vaccines Assertion Drug allergy Active [facility] HYDROcodone Assertion Drug allergy Active [facility] iodinated radiocontrast dyes Assertion Drug allergy Active [facility] Lortab Assertion Drug allergy Active [facility] Percodan<sup>1</sup> Assertion HALLUCINATIONS Drug allergy Active Not a true allergy, only hallucinations as per Doreen in ER [facility] Immunizations Immunization Date Given Site Status Last Updated Comments Source tetanus toxoid 08/11/2011 [place] Ar[facility] tetanus toxoid 08/11/2011 Left deltoid completed Sumit Michael,[facility] Results Order Name Results Value Reference Range Date Interpretation Comments Source Activated partial thromboplastin time (aPTT) in platelet poor plasma bycoagulation assay Activated partial thromboplastin time (aPTT) in platelet poor plasma bycoagulation assay 25.5 23.8 - 35.5 06/25/2017 [facility] Automated blood basophil count (count/volume) Automated blood basophil count (count/volume) 0.0 0.0 - 0.1 06/25/2017 [facility] Automated blood basophil count as percentage of total leukocytes Automated blood basophil count as percentage of total leukocytes 0.3 0.0 - 1.0 06/25/2017 [facility] Automated blood eosinophil count Automated blood eosinophil count 0.3 0.0 - 0.4 06/25/2017 [facility] Automated blood eosinophil count as percentage of total leukocytes Automated blood eosinophil count as percentage of total leukocytes 2.7 0.0 - 6.0 06/25/2017 [facility] Automated blood hematocrit (volume fraction) Automated blood hematocrit (volume fraction) 40.6 34.2 - 44.1 06/25/2017 [facility] Automated blood lymphocyte count as percentage ot total leukocytes Automated blood lymphocyte count as percentage ot total leukocytes 30.8 18.0 - 39.1 06/25/2017 [facility] Automated blood monocyte count as percentage of total leukocytes Automated blood monocyte count as percentage of total leukocytes 8.5 4.4 - 11.3 06/25/2017 [facility] Automated blood neutrophil count Automated blood neutrophil count 5.3 2.1 - 6.9 06/25/2017 [facility] Automated blood platelet count (count/volume) Automated blood platelet count (count/volume) 233 140 - 360 06/25/2017 [facility] Automated blood segmented neutrophil count as percentage of total leukocytes Automated blood segmented neutrophil count as percentage of total leukocytes 57.4 38.7 - 80.0 06/25/2017 [facility] Automated erythrocyte mean corpuscular hemoglobin (mass per erythrocyte) Automated erythrocyte mean corpuscular hemoglobin (mass per erythrocyte) 24.7 28 - 32 06/25/2017 [facility] Automated erythrocyte mean corpuscular hemoglobin concentration measurement (mass/volume) Automated erythrocyte mean corpuscular hemoglobin concentration measurement (mass/volume) 31.8 31 - 35 06/25/2017 [facility] Automated erythrocyte mean corpuscular volume Automated erythrocyte mean corpuscular volume 77.6 81 - 99 06/25/2017 [facility] Blood erythrocytes automated count (number/volume) Blood erythrocytes automated count (number/volume) 5.23 3.6 - 5.1 06/25/2017 [facility] Blood hemoglobin measurement (moles/volume) Blood hemoglobin measurement (moles/volume) 12.9 12.0 - 16.0 06/25/2017 [facility] Blood leukocytes automated count (number/volume) Blood leukocytes automated count (number/volume) 9.16 4.8 - 10.8 06/25/2017 [facility] Blood lymphocytes count (number/volume) Blood lymphocytes count (number/volume) 2.8 1.0 - 3.2 06/25/2017 [facility] Blood monocytes automated count (number/volume) Blood monocytes automated count (number/volume) 0.8 0.2 - 0.8 06/25/2017 [facility] Estimated glomerular filtration rate (GFR) determination Estimated glomerular filtration rate (GFR) determination 59 60 06/25/2017 [facility] Glucose measurement Glucose measurement 100 74 - 118 06/25/2017 [facility] INR in Platelet poor plasma by Coagulation assay INR in Platelet poor plasma by Coagulation assay 0.98 06/25/2017 [facility] Plasma globulin measurement (mass/volume) Plasma globulin measurement (mass/volume) 4.3 2.3 - 3.5 06/25/2017 [facility] Prothrombin time (PT) in platelet poor plasma by coagulation assay Prothrombin time (PT) in platelet poor plasma by coagulation assay 12.2 11.9 - 14.5 06/25/2017 [facility] Serum or plasma alanine aminotransferase measurement (enzymatic activity/volume) Serum or plasma alanine aminotransferase measurement (enzymatic activity/volume) 20 0 - 55 06/25/2017 [facility] Serum or plasma albumin measurement (mass/volume) Serum or plasma albumin measurement (mass/volume) 3.8 3.5 - 5.0 06/25/2017 [facility] Serum or plasma albumin/globulin mass ratio Serum or plasma albumin/globulin mass ratio 0.9 0.8 - 2.0 06/25/2017 [facility] Serum or plasma alkaline phosphatase measurement (enzymatic activity/volume) Serum or plasma alkaline phosphatase measurement (enzymatic activity/volume) 85 40 - 150 06/25/2017 [facility] Serum or plasma anion gap Serum or plasma anion gap 16.1 8 - 16 06/25/2017 [facility] Serum or plasma calcium measurement (mass/volume) Serum or plasma calcium measurement (mass/volume) 9.2 8.4 - 10.2 06/25/2017 [facility] Serum or plasma carbon dioxide, total measurement (moles/volume) Serum or plasma carbon dioxide, total measurement (moles/volume) 27 22 - 29 06/25/2017 [facility] Serum or plasma chloride measurement (moles/volume) Serum or plasma chloride measurement (moles/volume) 102 98 - 107 06/25/2017 [facility] Serum or plasma creatine kinase MB measurement (mass/volume) Serum or plasma creatine kinase MB measurement (mass/volume) 1.40 0 - 5.0 06/25/2017 [facility] Serum or plasma creatine kinase measurement (enzymatic activity/volume) Serum or plasma creatine kinase measurement (enzymatic activity/volume) 163 29 - 168 06/25/2017 [facility] Serum or plasma creatinine measurement (mass/volume) Serum or plasma creatinine measurement (mass/volume) 1.12 0.57 - 1.11 06/25/2017 [facility] Serum or plasma potassium measurement (moles/volume) Serum or plasma potassium measurement (moles/volume) 4.1 3.5 - 5.1 06/25/2017 [facility] Serum or plasma protein measurement (mass/volume) Serum or plasma protein measurement (mass/volume) 8.1 6.5 - 8.1 06/25/2017 [facility] Serum or plasma sodium measurement (moles/volume) Serum or plasma sodium measurement (moles/volume) 141 136 - 145 06/25/2017 [facility] Serum or plasma total bilirubin measurement (mass/volume) Serum or plasma total bilirubin measurement (mass/volume) 0.5 0.2 - 1.2 06/25/2017 [facility] Serum or plasma urea nitrogen measurement (mass/volume) Serum or plasma urea nitrogen measurement (mass/volume) 17 7 - 26 06/25/2017 [facility] Serum or plasma urea nitrogen/creatinine mass ratio Serum or plasma urea nitrogen/creatinine mass ratio 15 6 - 25 06/25/2017 [facility] Troponin I measurement by highly sensitive enzyme immunoassay Troponin I measurement by highly sensitive enzyme immunoassay 0.005 0 - 0.300 06/25/2017 [facility] Red Cell Distribution Width 15.7 11.7 - 14.4 06/25/2017 [facility] IM GRANULOCYTES % 0.3 0.0 - 1.0 06/25/2017 [facility] Absolute Immature Granulocyte (auto 0.03 0 - 0.1 06/25/2017 [facility] Aspartate Amino Transf (AST/SGOT) 23 5 - 34 06/25/2017 [facility] Automated urine sediment leukocyte count by microscopy (number/high power field) Automated urine sediment leukocyte count by microscopy (number/high power field) NONE 0 - 5 06/25/2017 [facility] Bacteria detection in urine sediment by light microscopy Bacteria detection in urine sediment by light microscopy NONE NONE 06/25/2017 [facility] Epithelial cells detection in urine sediment by light microscopy Epithelial cells detection in urine sediment by light microscopy FEW NONE 06/25/2017 [facility] Erythrocytes detection in urine sediment by light microscopy Erythrocytes detection in urine sediment by light microscopy NONE 0 - 5 06/25/2017 [facility] Specific gravity of Urine by Test strip Specific gravity of Urine by Test strip 1.010 1.010 - 1.025 06/25/2017 [facility] Urine clarity Urine clarity CLEAR CLEAR 06/25/2017 [facility] Urine color determination Urine color determination YELLOW YELLOW 06/25/2017 [facility] Urine erythrocytes detection Urine erythrocytes detection NEGATIVE NEGATIVE 06/25/2017 [facility] Urine glucose detection Urine glucose detection NEGATIVE NEGATIVE 06/25/2017 [facility] Urine ketones detection by automated test strip Urine ketones detection by automated test strip NEGATIVE NEGATIVE 06/25/2017 [facility] Urine leukocyte esterase detection by dipstick Urine leukocyte esterase detection by dipstick NEGATIVE NEGATIVE 06/25/2017 [facility] Urine nitrite detection Urine nitrite detection NEGATIVE NEGATIVE 06/25/2017 [facility] Urine pH measurement by automated test strip Urine pH measurement by automated test strip 6.5 5 - 7 06/25/2017 [facility] Urine protein measurement by test strip (mass/volume) Urine protein measurement by test strip (mass/volume) NEGATIVE NEGATIVE 06/25/2017 [facility] Urine total bilirubin measurement (mass/volume) Urine total bilirubin measurement (mass/volume) NEGATIVE NEGATIVE 06/25/2017 [facility] Urine urobilinogen measurement by test strip (mass/volume) Urine urobilinogen measurement by test strip (mass/volume) 0.2 0.2 - 1 06/25/2017 [facility] Mucus detection in urine sediment by light microscopy Mucus detection in urine sediment by light microscopy FEW RARE 01/22/2017 [facility] Serum or plasma amylase measurement (enzymatic activity/volume) Serum or plasma amylase measurement (enzymatic activity/volume) 76 25 - 125 01/22/2017 [facility] Serum or plasma lipase measurement (enzymatic activity/volume) Serum or plasma lipase measurement (enzymatic activity/volume) 21 8 - 78 01/22/2017 [facility] ELECTROLYTES AGAP 10.6 meq/L 10.0 - 20.0 11/27/2014 [facility] ELECTROLYTES A/G Ratio 0.9 0.7 - 1.6 11/27/2014 [facility] ELECTROLYTES Globulin 3.7 g/dL 2.0 - 4.0 11/27/2014 [facility] ELECTROLYTES B/C Ratio 16 6 - 25 11/27/2014 [facility] ELECTROLYTES eGFR 69 mL/min/1.73m2 11/27/2014 Result Comment: The eGFR is calculated using the CKD-EPI formula. In most young, healthy individuals the eGFR will be >90 mL/min/1.73m2. The eGFR declines with age. An eGFR of 60-89 may be normal in some populations, particularly the elderly, for whom the CKD-EPI formula has not been extensively validated. Use of the eGFR is not recommended in the following populations: Individuals with unstable creatinine concentrations, including patients and those with serious co-morbid conditions. Patients with extremes in muscle mass or diet. The data above are obtained from the National Kid[employer] Disease Education Program (NKDEP) which additionally recommends that when the eGFR is used in patients with extremes of body mass index for purposes of drug dosing, the eGFR should be multiplied by the estimated BMI. [facility] ELECTROLYTES Total Protein 7.1 g/dL 6.4 - 8.4 11/27/2014 [facility] ELECTROLYTES CO2 30 meq/L 24 - 32 11/27/2014 [facility] ELECTROLYTES Albumin Lvl 3.4 g/dL 3.5 - 5.0 11/27/2014 [facility] ELECTROLYTES Calcium Lvl 8.7 mg/dL 8.5 - 10.5 11/27/2014 [facility] ELECTROLYTES AST 13 unit/L 0 - 37 11/27/2014 [facility] ELECTROLYTES ALT 26 unit/L 0 - 65 11/27/2014 [facility] ELECTROLYTES Alk Phos 105 unit/L 39 - 136 11/27/2014 [facility] ELECTROLYTES Bili Total 0.7 mg/dL 0.2 - 1.3 11/27/2014 [facility] ELECTROLYTES BUN 16 mg/dL 7 - 22 11/27/2014 [facility] ELECTROLYTES Creatinine Lvl 1.0 mg/dL 0.5 - 1.4 11/27/2014 [facility] ELECTROLYTES Glucose Lvl 129 mg/dL 70 - 99 11/27/2014 [facility] ELECTROLYTES Chloride Lvl 106 meq/L 95 - 109 11/27/2014 [facility] ELECTROLYTES Potassium Lvl 3.6 meq/L 3.5 - 5.1 11/27/2014 [facility] ELECTROLYTES Sodium Lvl 143 meq/L 135 - 145 11/27/2014 [facility] HEMATOLOGY PT 13.0 s 12.0 - 14.7 11/27/2014 [facility] HEMATOLOGY INR 0.98 0.85 - 1.17 11/27/2014 [facility] HEMATOLOGY RBC 4.78 M/CMM 4.20 - 5.40 11/27/2014 [facility] HEMATOLOGY Hct 36.2 % 36.0 - 48.0 11/27/2014 [facility] HEMATOLOGY Hgb 11.7 g/dL 12.0 - 16.0 11/27/2014 [facility] HEMATOLOGY MCH 24.5 pg 27.0 - 31.0 11/27/2014 [facility] HEMATOLOGY MCV 75.7 fL 80.0 - 98.0 11/27/2014 [facility] HEMATOLOGY MCHC 32.3 g/dL 32.0 - 36.0 11/27/2014 [facility] HEMATOLOGY RDW 14.9 % 11.5 - 14.5 11/27/2014 [facility] HEMATOLOGY MPV 8.8 fL 7.4 - 10.4 11/27/2014 [facility] HEMATOLOGY Platelet 211 K/CMM 133 - 450 11/27/2014 [facility] HEMATOLOGY WBC 8.1 K/CMM 3.7 - 10.4 11/27/2014 [facility] HEMATOLOGY Segs-Bands # 5.0 K/CMM 1.5 - 8.1 11/27/2014 [facility] [place] Lymphocytes # 2.2 K/CMM 1.0 - 5.5 11/27/2014 [facility] HEMATOLOGY Basophils 1.2 % 0.0 - 1.0 11/27/2014 [facility] HEMATOLOGY Eosinophils 2.8 % 0.0 - 4.0 11/27/2014 [facility] HEMATOLOGY Monocytes 6.9 % 2.0 - 12.0 11/27/2014 [facility] [place] Segs 61.8 % 45.0 - 75.0 11/27/2014 [facility] [place] Plt Morph Normal (11/26/14 11:18 PM) 11/27/2014 [facility] [place] Lymphocytes 27.3 % 20.0 - 40.0 11/27/2014 [facility] [place] Basophils # 0.1 K/CMM 0.0 - 0.2 11/27/2014 [facility] [facility] HEMATOLOGY Eosinophils # 0.2 K/CMM 0.0 - 0.5 11/27/2014 [facility] [place] Monocytes # 0.6 K/CMM 0.0 - 0.8 11/27/2014 [facility] [place] [place] Microcyte 1+ *ABN* (11/26/14 11:18 PM) None Seen 11/27/2014 [facility] Brain wo contrast CT Brain wo contrast CT CT BRAIN WITHOUT CONTRAST INDICATION: Headache with dizziness COMPARISON: CT brain 07/20/2014 FINDINGS: There is a chronic lacunar infarct of the head of the right caudate nucleus. There is no evidence of acute vascular insults, space occupying lesions, hemorrhage, hydrocephalus, midline shift, or extra-axial collections. The calvarium is intact. IMPRESSION: A chronic lacunar infarct of the right basal ganglia. No acute intracranial abnormalities are visualized. SL: 16 11/27/2014 - - Read by: Mino Vogel MD Dictated Date/time: 11/27/14 00:52 Electronically Signed by: Mino Vogel MD 11/27/14 00:53 FINAL REPORT [facility] Chest 1view DX Chest 1view DX Portable chest: The cardiac silhouette and pulmonary vasculature are within normal limits. The lungs and pleural spaces are clear. There is no significant change compared to 07/20/2014. IMPRESSION: No acute radiographic abnormality in the chest. SL:13 11/26/2014 - - Read by: David Greene MD Dictated Date/time: 11/26/14 22:43 Electronically Signed by: David Greene MD 11/26/14 22:43 FINAL REPORT [facility] CARDIAC ENZYMES Troponin-I null 0.00 - 0.40 07/20/2014 [facility] CARDIAC ENZYMES CK MB 1.3 ng/mL 0.5 - 3.6 07/20/2014 [facility] CHEM PANEL Lipase Lvl 163 unit/L 73 - 393 07/20/2014 [facility] ELECTROLYTES AGAP 11.6 meq/L 10.0 - 20.0 07/20/2014 [facility] ELECTROLYTES Globulin 4.6 g/dL 2.0 - 4.0 07/20/2014 [facility] ELECTROLYTES A/G Ratio 0.8 0.7 - 1.6 07/20/2014 [facility] ELECTROLYTES B/C Ratio 19 6 - 25 07/20/2014 [facility] ELECTROLYTES eGFR 70 mL/min/1.73m2 07/20/2014 1Result Comment: The eGFR is calculated using the CKD-EPI formula. In most young, healthy individuals the eGFR will be >90 mL/min/1.73m2. The eGFR declines with age. An eGFR of 60-89 may be normal in some populations, particularly the elderly, for whom the CKD-EPI formula has not been extensively validated. Use of the eGFR is not recommended in the following populations: Individuals with unstable creatinine concentrations, including patients and those with serious co-morbid conditions. Patients with extremes in muscle mass or diet. The data above are obtained from the National Kidney Disease Education Program (NKDEP) which additionally recommends that when the eGFR is used in patients with extremes of body mass index for purposes of drug dosing, the eGFR should be multiplied by the estimated BMI. [facility] ELECTROLYTES BUN 19 mg/dL 7 - 22 07/20/2014 [facility] ELECTROLYTES Glucose Lvl 150 mg/dL 70 - 99 07/20/2014 2Interpretive Data: Adult reference range values reflect the clinical guidelines of the [place] [employer]. [facility] ELECTROLYTES CO2 28 meq/L 24 - 32 07/20/2014 [facility] ELECTROLYTES Creatinine Lvl 1.0 mg/dL 0.5 - 1.4 07/20/2014 [facility] ELECTROLYTES AST 12 unit/L 0 - 37 07/20/2014 [facility] ELECTROLYTES Alk Phos 136 unit/L 39 - 136 07/20/2014 [facility] ELECTROLYTES Bili Total 0.5 mg/dL 0.2 - 1.3 07/20/2014 [facility] ELECTROLYTES Total Protein 8.4 g/dL 6.4 - 8.4 07/20/2014 [facility] ELECTROLYTES Calcium Lvl 9.3 mg/dL 8.5 - 10.5 07/20/2014 [facility] ELECTROLYTES ALT 22 unit/L 0 - 65 07/20/2014 [facility] ELECTROLYTES Albumin Lvl 3.8 g/dL 3.5 - 5.0 07/20/2014 [facility] ELECTROLYTES Chloride Lvl 100 meq/L 95 - 109 07/20/2014 [facility] ELECTROLYTES Potassium Lvl 3.6 meq/L 3.5 - 5.1 07/20/2014 [facility] ELECTROLYTES Sodium Lvl 136 meq/L 135 - 145 07/20/2014 [facility] HEMATOLOGY Hgb 12.9 g/dL 12.0 - 16.0 07/20/2014 [facility] [place] [place] Hct 39.0 % 36.0 - 48.0 07/20/2014 [facility] [place] [place] RBC 5.25 M/CMM 4.20 - 5.40 07/20/2014 [facility] [place] WBC 10.2 K/CMM 3.7 - 10.4 07/20/2014 [facility] [place] MPV 9.1 fL 7.4 - 10.4 07/20/2014 [facility] [place] MCH 24.5 pg 27.0 - 31.0 07/20/2014 [facility] [place] MCV 74.3 fL 80.0 - 98.0 07/20/2014 [facility] [place] Platelet 270 K/CMM 133 - 450 07/20/2014 [facility] [place] RDW 15.6 % 11.5 - 14.5 07/20/2014 [facility] [place] MCHC 33.0 g/dL 32.0 - 36.0 07/20/2014 [facility] [place] Microcyte 1+ *ABN* (07/20/14 12:00 AM) None Seen 07/20/2014 [facility] [place] Monocytes # 0.9 K/CMM 0.0 - 0.8 07/20/2014 [facility] HEMATOLOGY Eosinophils # 0.2 K/CMM 0.0 - 0.5 07/20/2014 [facility] HEMATOLOGY Basophils # 0.2 K/CMM 0.0 - 0.2 07/20/2014 [facility] [place] Basophils 1.9 % 0.0 - 1.0 07/20/2014 [facility] [place] Lymphocytes # 2.6 K/CMM 1.0 - 5.5 07/20/2014 [facility] [place] Segs-Bands # 6.2 K/CMM 1.5 - 8.1 07/20/2014 [facility] [place] Eosinophils 2.4 % 0.0 - 4.0 07/20/2014 [facility] [place] Segs 60.8 % 45.0 - 75.0 07/20/2014 [facility] [place] Lymphocytes 25.7 % 20.0 - 40.0 07/20/2014 [facility] [place] Monocytes 9.2 % 2.0 - 12.0 07/20/2014 [facility] [place] PTT 32.3 s 22.9 - 35.8 07/20/2014 4Interpretive Data: Heparin Therapeutic Range: 57 - 92 Seconds [facility] [place] [place] PT 12.5 s 12.0 - 14.7 07/20/2014 [facility] [place] INR 0.94 0.85 - 1.17 07/20/2014 3Interpretive Data: RECOMMENDED RANGES FOR PROTIME INR: 2.0-3.0 for most medical and surgical thromboembolic states. 2.5-3.5 for artificial heart valves and recurrent embolism. INR SHOULD BE USED ONLY FOR PATIENTS ON STABLE ANTICOAGULANT THERAPY. [facility] Abdomen acute series w chest 1 view DX Abdomen acute series w chest 1 view DX EXAM: ABDOMEN 2 VIEWS WITH PA CHEST DATE: Jul 20, 2014 12:44:00 AM INDICATION: Abdominal pain, acute. TECHNIQUE: An upright view the chest and upright and supine views of the abdomen COMPARISON: Chest x-ray 07/16/2014.. FINDINGS: There is no subdiaphragmatic free air. Bilateral lung and thoracic spine osteophytes are seen. costophrenic sulci are clear. No pneumothorax is identified. Cardiomediastinal contours are within normal limits. There is no bowel dilatation or evidence of obstruction. Right upper quadrant cholecystectomy clips are identified. IMPRESSION: No evidence of bowel obstruction or ileus. Cholecystectomy. SL: 14 07/20/2014 - - Read by: Charleen Rooney MD Dictated Date/time: 07/20/14 01:09 Electronically Signed by: Charleen Rooney MD 07/20/14 01:10 FINAL REPORT [facility] Brain wo contrast CT Brain wo contrast CT EXAM: CT HEAD WITHOUT CONTRAST. DATE: Jul 19, 2014 11:50:00 PM INDICATION: Headache with Dizziness and Giddiness TECHNIQUE: Noncontrast axial imaging was obtained from the vertex to the skull base. Axial images were reconstructed using a bone algorithm. COMPARISON: CT head 07/16/2014. FINDINGS: No acute intracranial hemorrhage or extraaxial collection is identified. . 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 Dense calcification of the interhemispheric fissure is again seen. The ventricles are normal. No mass effect is seen. The posadas-white matter interfaces are preserved. The included paranasal sinuses, mastoid air cells and auditory canals are clear.>] No skull fracture is seen. IMPRESSION: 1. No acute intracranial abnormality. 2. No significant interval change compared to 07/16/2014. SL: 14 07/20/2014 - - Read by: Charleen Rooney MD Dictated Date/time: 07/20/14 00:28 Electronically Signed by: Charleen Rooney MD 07/20/14 00:30 FINAL REPORT [facility] CARDIAC ENZYMES CK MB Index 0.6 0.0 - 2.5 07/17/2014 [facility] CARDIAC ENZYMES CK MB 0.9 ng/mL 0.5 - 3.6 07/17/2014 [facility] CARDIAC ENZYMES Total CK 160 unit/L 12 - 191 07/17/2014 [facility] CARDIAC ENZYMES Troponin-I null 0.00 - 0.40 07/17/2014 [facility] CHEM PANEL eGFR 62 mL/min/1.73m2 07/17/2014 1Result Comment: The eGFR is calculated using the CKD-EPI formula. In most young, healthy individuals the eGFR will be >90 mL/min/1.73m2. The eGFR declines with age. An eGFR of 60-89 may be normal in some populations, particularly the elderly, for whom the CKD-EPI formula has not been extensively validated. Use of the eGFR is not recommended in the following populations: Individuals with unstable creatinine concentrations, including patients and those with serious co-morbid conditions. Patients with extremes in muscle mass or diet. The data above are obtained from the National Kidney Disease Education Program (NKDEP) which additionally recommends that when the eGFR is used in patients with extremes of body mass index for purposes of drug dosing, the eGFR should be multiplied by the estimated BMI. [facility] CHEM PANEL Glucose Lvl 215 mg/dL 70 - 99 07/17/2014 2Interpretive Data: Adult reference range values reflect the clinical guidelines of the [place] [employer]. [facility] CHEM PANEL BUN 19 mg/dL 7 - 22 07/17/2014 [facility] CHEM PANEL Creatinine Lvl 1.1 mg/dL 0.5 - 1.4 07/17/2014 [facility] CHEM PANEL CO2 28 meq/L 24 - 32 07/17/2014 [facility] CHEM PANEL Total Protein 8.5 g/dL 6.4 - 8.4 07/17/2014 [facility] CHEM PANEL Globulin 4.5 g/dL 2.0 - 4.0 07/17/2014 [facility] CHEM PANEL A/G Ratio 0.9 0.7 - 1.6 07/17/2014 [facility] CHEM PANEL Albumin Lvl 4.0 g/dL 3.5 - 5.0 07/17/2014 [facility] CHEM PANEL ALT 24 unit/L 0 - 65 07/17/2014 [facility] CHEM PANEL Alk Phos 134 unit/L 39 - 136 07/17/2014 [facility] CHEM PANEL Bili Total 0.4 mg/dL 0.2 - 1.3 07/17/2014 [facility] CHEM PANEL AST 16 unit/L 0 - 37 07/17/2014 [facility] CHEM PANEL AGAP 11.2 meq/L 10.0 - 20.0 07/17/2014 [facility] CHEM PANEL B/C Ratio 17 6 - 25 07/17/2014 [facility] CHEM PANEL Chloride Lvl 104 meq/L 95 - 109 07/17/2014 [facility] CHEM PANEL Potassium Lvl 4.2 meq/L 3.5 - 5.1 07/17/2014 [facility] CHEM PANEL Calcium Lvl 9.3 mg/dL 8.5 - 10.5 07/17/2014 [facility] CHEM PANEL Sodium Lvl 139 meq/L 135 - 145 07/17/2014 [facility] HEMATOLOGY Eosinophils # 0.2 K/CMM 0.0 - 0.5 07/17/2014 [facility] HEMATOLOGY Basophils # 0.1 K/CMM 0.0 - 0.2 07/17/2014 [facility] HEMATOLOGY Monocytes # 0.7 K/CMM 0.0 - 0.8 07/17/2014 [facility] HEMATOLOGY Microcyte 1+ *ABN* (07/16/14 7:56 PM) None Seen 07/17/2014 [facility] HEMATOLOGY Lymphocytes # 2.4 K/CMM 1.0 - 5.5 07/17/2014 [facility] HEMATOLOGY Monocytes 8.7 % 2.0 - 12.0 07/17/2014 [facility] HEMATOLOGY Segs 58.4 % 45.0 - 75.0 07/17/2014 [facility] HEMATOLOGY Eosinophils 2.6 % 0.0 - 4.0 07/17/2014 [facility] HEMATOLOGY Basophils 1.7 % 0.0 - 1.0 07/17/2014 [facility] [place] Segs-Bands # 4.9 K/CMM 1.5 - 8.1 07/17/2014 [facility] [place] Lymphocytes 28.6 % 20.0 - 40.0 07/17/2014 [facility] [place] RBC 5.36 M/CMM 4.20 - 5.40 07/17/2014 [facility] [place] MPV 9.3 fL 7.4 - 10.4 07/17/2014 [facility] [place] Platelet 238 K/CMM 133 - 450 07/17/2014 [facility] [place] RDW 15.8 % 11.5 - 14.5 07/17/2014 [facility] [place] Hgb 13.2 g/dL 12.0 - 16.0 07/17/2014 [facility] [place] WBC 8.4 K/CMM 3.7 - 10.4 07/17/2014 [facility] [place] Hct 40.2 % 36.0 - 48.0 07/17/2014 [facility] [place] MCV 75.0 fL 80.0 - 98.0 07/17/2014 [facility] [place] MCHC 32.8 g/dL 32.0 - 36.0 07/17/2014 [facility] [place] MCH 24.6 pg 27.0 - 31.0 07/17/2014 [facility] [place] PTT 30.6 s 22.9 - 35.8 07/17/2014 4Interpretive Data: Heparin Therapeutic Range: 57 - 92 Seconds [facility] [place] PT 11.7 s 12.0 - 14.7 07/17/2014 [facility] [place] INR 0.86 0.85 - 1.17 07/17/2014 3Interpretive Data: RECOMMENDED RANGES FOR PROTIME INR: 2.0-3.0 for most medical and surgical thromboembolic states. 2.5-3.5 for artificial heart valves and recurrent embolism. INR SHOULD BE USED ONLY FOR PATIENTS ON STABLE ANTICOAGULANT THERAPY. [facility] Brain wo contrast CT Brain wo contrast CT CT BRAIN WITHOUT CONTRAST INDICATION: Facial numbness COMPARISON: CT brain 12/09/2010 FINDINGS: There is no evidence of acute vascular insults, space occupying lesions, hemorrhage, hydrocephalus, midline shift, or extra-axial collections. The calvarium is intact. IMPRESSION: No acute intracranial abnormalities are visualized. SL: 16 07/16/2014 - - Read by: Mino Vogel MD Dictated Date/time: 07/16/14 21:51 Electronically Signed by: Mino Vogel MD 07/16/14 21:52 FINAL REPORT [facility] Foot series DX Foot series DX RIGHT FOOT RADIOGRAPH 3 VIEW INDICATION: Heel pain COMPARISON: None IMPRESSION: No acute bony abnormalities are visualized. There is mild spurring of the plantar aspect of the calcaneal tuberosity. There is mild arthrosis of the first MTP joint. SL: 16 07/16/2014 - - Read by: Mino Vogel MD Dictated Date/time: 07/16/14 22:01 Electronically Signed by: iMno Vogel MD 07/16/14 22:02 FINAL REPORT [facility] Chest 1view DX Chest 1view DX CXR, portable (1 view) HISTORY: Chest pain A prior study of 12/23/2013 was reviewed. FINDINGS: The lungs are clear. There are no pleural effusions. The heart and pulmonary vasculature are within normal limits. There are mild scattered degenerative changes in the thoracic spine. Otherwise, the regional skeleton is unremarkable. There are surgical clips in the right upper quadrant consistent with a prior cholecystectomy. CONCLUSION: 1. No active disease. 2. There are surgical clips in the right upper quadrant consistent with a prior cholecystectomy. Coding: Chest 1view CPT code: 67762 SL: 13 Tacho Hyatt M.D. 07/16/2014 - - Read by: Tacho Hyatt MD Dictated Date/time: 07/16/14 17:04 Electronically Signed by: Tacho Hyatt MD 07/16/14 17:06 FINAL REPORT [facility] LIPIDS VLDL 71 12/24/2013 [facility] LIPIDS LDL (Calculated) 81 mg/dL <=99 mg/dL 12/24/2013 [facility] HDL 42 mg/dL >=61 mg/dL 12/24/2013 [facility] CHD Risk 4.62 3.90 - 5.80 12/24/2013 [facility] LIPIDS Trig 354 mg/dL <=149 mg/dL 12/24/2013 [facility] Chol 194 mg/dL <=199 mg/dL 12/24/2013 [facility] CARDIAC ENZYMES Troponin-I 0.03 ng/mL 0.00 - 0.40 12/24/2013 [facility] CARDIAC ENZYMES Total CK 259 unit/L 12 - 191 12/24/2013 [facility] CARDIAC ENZYMES CK MB 0.9 ng/mL 0.5 - 3.6 12/24/2013 [facility] CARDIAC ENZYMES CK-MB INDEX 0.3 0.0 - 2.5 12/24/2013 [facility] CARDIAC ENZYMES Total CK 300 unit/L 12 - 191 12/23/2013 [facility] CARDIAC ENZYMES Troponin-I 0.04 ng/mL 0.00 - 0.40 12/23/2013 [facility] CARDIAC ENZYMES CK MB Index 0.4 0.0 - 2.5 12/23/2013 [facility] CARDIAC ENZYMES CK MB 1.2 ng/mL 0.5 - 3.6 12/23/2013 [facility] URINE AND STOOL UA Urobilinogen <=1.0 mg/dL 0.1 - 1.0 12/23/2013 [facility] URINE AND STOOL UA Color Ltyellow 12/23/2013 [facility] URINE AND STOOL UA RBC 1 /HPF 0 - 2 12/23/2013 [facility] URINE AND STOOL UA WBC 6 /HPF 0 - 5 12/23/2013 [facility] URINE AND STOOL UA Sq Epi Occasional /LPF Few /LPF 12/23/2013 [facility] URINE AND STOOL UA Leuk Est Moderate *ABN* (12/23/13 4:00 PM) Negative 12/23/2013 [facility] URINE AND STOOL UA Nitrite Negative (12/23/13 4:00 PM) Negative 12/23/2013 [facility] URINE AND STOOL UA Bili Negative *NA* (12/23/13 4:00 PM) Negative 12/23/2013 [facility] URINE AND STOOL UA Blood Negative (12/23/13 4:00 PM) Negative 12/23/2013 [facility] URINE AND STOOL UA pH 5.0 5.0 - 8.0 12/23/2013 [facility] URINE AND STOOL UA Ketones Negative mg/dL Negative mg/dL 12/23/2013 [facility] URINE AND STOOL UA Glucose Negative mg/dL Negative mg/dL 12/23/2013 [facility] URINE AND STOOL UA Protein Negative mg/dL Negative mg/dL 12/23/2013 [facility] URINE AND STOOL UA Spec Grav 1.011 <=1.030 12/23/2013 [facility] URINE AND STOOL UA Turbidity Clear (12/23/13 4:00 PM) Clear 12/23/2013 [facility] CARDIAC ENZYMES BNP null <=100 pg/mL 12/23/2013 3Interpretive Data: Elevated results are in line with increasing severity of congestive heart failure. Minor elevations between 100 and 300 may be seen with Myocardial Ischemia, Sodium retaining drugs, and compensated/treated heart failure. [facility] HEMATOLOGY D-Dimer 0.33 ug/mL FEU 12/23/2013 5Interpretive Data: In DIC, quantitative D-Dimer is generally greater than 0.66 ug/mL FEU. Values of quantitative D-Dimer less than 0.40 ug/mL FEU have been reported to be associated with a low probability of deep vein thrombosis/pulmonary embolism. This test alone should not be used to rule out DVT/PE. [facility] CARDIAC ENZYMES Total CK 408 unit/L 12 - 191 12/23/2013 [facility] CARDIAC ENZYMES Troponin-I 0.03 ng/mL 0.00 - 0.40 12/23/2013 [facility] CARDIAC ENZYMES CK MB 1.8 ng/mL 0.5 - 3.6 12/23/2013 [facility] CARDIAC ENZYMES CK MB Index 0.4 0.0 - 2.5 12/23/2013 [facility] CHEM PANEL Phosphorus 2.5 mg/dL 2.5 - 4.5 12/23/2013 [facility] CHEM PANEL Magnesium Lvl 1.8 mg/dL 1.8 - 2.4 12/23/2013 [facility] CHEM PANEL eGFR 91 mL/min/1.73m2 12/23/2013 1Result Comment: The eGFR is calculated using the CKD-EPI formula. In most young, healthy individuals the eGFR will be >90 mL/min/1.73m2. The eGFR declines with age. An eGFR of 60-89 may be normal in some populations, particularly the elderly, for whom the CKD-EPI formula has not been extensively validated. Use of the eGFR is not recommended in the following populations: Individuals with unstable creatinine concentrations, including patients and those with serious co-morbid conditions. Patients with extremes in muscle mass or diet. The data above are obtained from the National Kidney Disease Education Program (NKDEP) which additionally recommends that when the eGFR is used in patients with extremes of body mass index for purposes of drug dosing, the eGFR should be multiplied by the estimated BMI. [facility] CHEM PANEL A/G Ratio 1.0 0.7 - 1.6 12/23/2013 [facility] CHEM PANEL Globulin 4.2 g/dL 2.0 - 4.0 12/23/2013 [facility] CHEM PANEL B/C Ratio 28 6 - 25 12/23/2013 [facility] CHEM PANEL Alk Phos 139 unit/L 39 - 136 12/23/2013 [facility] CHEM PANEL AGAP 11.6 meq/L 10.0 - 20.0 12/23/2013 [facility] CHEM PANEL Bili Total 0.7 mg/dL 0.2 - 1.3 12/23/2013 [facility] CHEM PANEL Albumin Lvl 4.3 g/dL 3.5 - 5.0 12/23/2013 [facility] CHEM PANEL Chloride Lvl 105 meq/L 95 - 109 12/23/2013 [facility] CHEM PANEL CO2 25 meq/L 24 - 32 12/23/2013 [facility] CHEM PANEL Potassium Lvl 4.6 meq/L 3.5 - 5.1 12/23/2013 [facility] CHEM PANEL AST 22 unit/L 0 - 37 12/23/2013 [facility] CHEM PANEL ALT 31 unit/L 0 - 65 12/23/2013 [facility] CHEM PANEL Calcium Lvl 9.3 mg/dL 8.5 - 10.5 12/23/2013 [facility] CHEM PANEL Total Protein 8.5 g/dL 6.4 - 8.4 12/23/2013 [facility] CHEM PANEL Creatinine Lvl 0.8 mg/dL 0.5 - 1.4 12/23/2013 [facility] CHEM PANEL BUN 22 mg/dL 7 - 22 12/23/2013 [facility] CHEM PANEL Glucose Lvl 178 mg/dL 70 - 99 12/23/2013 2Interpretive Data: Adult reference range values reflect the clinical guidelines of the [place] [employer]. [facility] CHEM PANEL Sodium Lvl 137 meq/L 135 - 145 12/23/2013 [facility] HEMATOLOGY PTT 30.0 s 22.9 - 35.8 12/23/2013 6Interpretive Data: Heparin Therapeutic Range: 57 - 92 Seconds [facility] HEMATOLOGY PT 12.5 s 12.0 - 14.7 12/23/2013 [facility] HEMATOLOGY INR 0.94 0.85 - 1.17 12/23/2013 4Interpretive Data: RECOMMENDED RANGES FOR PROTIME INR: 2.0-3.0 for most medical and surgical thromboembolic states. 2.5-3.5 for artificial heart valves and recurrent embolism. INR SHOULD BE USED ONLY FOR PATIENTS ON STABLE ANTICOAGULANT THERAPY. [facility] [place] Platelet 248 K/CMM 133 - 450 12/23/2013 [facility] [place] MPV 10.5 fL 7.4 - 10.4 12/23/2013 [facility] [place] RDW 15.4 % 11.5 - 14.5 12/23/2013 [facility] [place] RBC 5.45 M/CMM 4.20 - 5.40 12/23/2013 [facility] [place] WBC 7.2 K/CMM 3.7 - 10.4 12/23/2013 [facility] [place] MCV 76.4 fL 80.0 - 98.0 12/23/2013 [facility] [place] Hct 41.6 % 36.0 - 48.0 12/23/2013 [facility] [place] Hgb 13.3 g/dL 12.0 - 16.0 12/23/2013 [facility] [place] MCH 24.3 pg 27.0 - 31.0 12/23/2013 [facility] [place] MCHC 31.9 g/dL 32.0 - 36.0 12/23/2013 [facility] [place] Microcyte 1+ *ABN* (12/23/13 11:38 AM) None Seen 12/23/2013 [facility] [place] Basophils # 0.1 K/CMM 0.0 - 0.2 12/23/2013 [facility] [place] Monocytes 5.8 % 2.0 - 12.0 12/23/2013 [facility] [place] Eosinophils 2.5 % 0.0 - 4.0 12/23/2013 [facility] [place] Monocytes # 0.4 K/CMM 0.0 - 0.8 12/23/2013 [facility] HEMATOLOGY Segs 65.4 % 45.0 - 75.0 12/23/2013 [facility] [place] Lymphocytes 25.4 % 20.0 - 40.0 12/23/2013 [facility] [place] Lymphocytes # 1.8 K/CMM 1.0 - 5.5 12/23/2013 [facility] [place] Basophils 0.9 % 0.0 - 1.0 12/23/2013 [facility] [place] Segs-Bands # 4.7 K/CMM 1.5 - 8.1 12/23/2013 [facility] [place] Eosinophils # 0.2 K/CMM 0.0 - 0.5 12/23/2013 [facility] Chest 1view Chest 1view CXR, portable (1 view) HISTORY: Chest pain Comparison is made to 04/27/2013 pretty study of 10/29/2011 was also reviewed. FINDINGS: The lungs are clear. The heart and pulmonary vasculature are within normal limits. There are no pleural effusions. There mild degenerative changes involving the thoracic spine. The regional skeleton is otherwise unremarkable. There are surgical clips in the right upper quadrant consistent with a prior cholecystectomy. CONCLUSION: 1. No active disease. 2. There are surgical clips in the right upper quadrant consistent with a prior cholecystectomy. Coding: Chest 1view CPT code: 86035 SL: 12 Tacho Hyatt M.D. 12/23/2013 - - Read by: Tacho Hyatt MD Dictated Date/time: 12/23/13 14:04 Electronically Signed by: Tacho Hyatt MD 12/23/13 14:05 FINAL REPORT [facility] Extremity lower venous Doppler Unilat US Extremity lower venous Doppler Unilat US PROCEDURE: Extremity lower venous Doppler US REASON FOR EXAM: See Clinic Indication CLINICAL INFORMATION Pain-Limb COMPARISON: None. TECHNIQUE: Sonographic evaluation of the bilateral lower extremity veins was performed using high resolution B-mode imaging, along with pulse and color Doppler imaging. FINDINGS: Right lower extremity: The common femoral vein, femoral vein, popliteal vein and visualized posterior tibial/calf veins are patent. There is no echogenic debris to suggest deep venous thrombosis. There is normal compression. The saphenofemoral junction is unremarkable. IMPRESSION: No DVT SL: 14 07/27/2013 - - Read by: Justin Orourke Dictated Date/time: 07/28/13 01:09 Electronically Signed by: Justin Orourke MD 07/28/13 01:10 FINAL REPORT [facility] Knee series Knee series PROCEDURE: Knee series REASON FOR EXAM: See Clinic Indication CLINICAL INDICATION: Pain and swelling COMPARISON: 08/10/2011 Four views right There is chronic calcific tendinitis of the lateral collateral ligament. The tricompartments of the knee are preserved. There is no fracture, or aggressive osseous process. There is no joint effusion. SL: 14 07/27/2013 - - Read by: Justin Orourke Dictated Date/time: 07/28/13 00:01 Electronically Signed by: Justin Orourke MD 07/28/13 00:03 FINAL REPORT [facility] CHEMISTRY eGFR 56 mL/min/1.73m2 06/04/2013 1Result Comment: The eGFR is calculated using the CKD-EPI formula. In most young, healthy individuals the eGFR will be >90 mL/min/1.73m2. The eGFR declines with age. An eGFR of 60-89 may be normal in some populations, particularly the elderly, for whom the CKD-EPI formula has not been extensively validated. Use of the eGFR is not recommended in the following populations: Individuals with unstable creatinine concentrations, including patients and those with serious co-morbid conditions. Patients with extremes in muscle mass or diet. The data above are obtained from the National Kidney Disease Education Program (NKDEP) which additionally recommends that when the eGFR is used in patients with extremes of body mass index for purposes of drug dosing, the eGFR should be multiplied by the estimated BMI. [facility] CHEMISTRY ALANINE AMINOTRANSFERASE 20 unit/L 0 - 65 06/04/2013 Normal [facility] CHEMISTRY Albumin Lvl 3.7 g/dL 3.5 - 5.0 06/04/2013 Normal [facility] CHEMISTRY Alk Phos 111 unit/L 39 - 136 06/04/2013 Normal [facility] CHEMISTRY ASPARTATE TRANSAMINASE 10 unit/L 0 - 37 06/04/2013 Normal [facility] CHEMISTRY Bili Total 0.5 mg/dL 0.2 - 1.3 06/04/2013 Normal [facility] CHEMISTRY BUN 19 mg/dL 7 - 22 06/04/2013 Normal [facility] CHEMISTRY Creatinine Lvl 1.2 mg/dL 0.5 - 1.4 06/04/2013 Normal [facility] CHEMISTRY Sodium Lvl 140 meq/L 135 - 145 06/04/2013 Normal [facility] CHEMISTRY Potassium Lvl 3.7 meq/L 3.5 - 5.1 06/04/2013 Normal [facility] CHEMISTRY Chloride Lvl 104 meq/L 95 - 109 06/04/2013 Normal [facility] CHEMISTRY Total Protein 7.6 g/dL 6.4 - 8.4 06/04/2013 Normal [facility] CHEMISTRY Calcium Lvl 9.4 mg/dL 8.5 - 10.5 06/04/2013 Normal [facility] CHEMISTRY CO2 26 meq/L 24 - 32 06/04/2013 Normal [facility] CHEMISTRY Glucose Lvl 279 mg/dL 70 - 99 06/04/2013 [place] 2Interpretive Data: Adult reference range values reflect the clinical guidelines of the [place] [employer]. [facility] CHEMISTRY Globulin 3.9 g/dL 2.0 - 4.0 06/04/2013 Normal [facility] CHEMISTRY B/C Ratio 16 6 - 25 06/04/2013 Normal [facility] CHEMISTRY AGAP 13.7 meq/L 10.0 - 20.0 06/04/2013 Normal [facility] CHEMISTRY A/G Ratio 0.9 0.7 - 1.6 06/04/2013 Normal [facility] HEMATOLOGY Basophils # 0.0 K/CMM 0.0 - 0.2 06/04/2013 Normal [facility] HEMATOLOGY Eosinophils # 0.2 K/CMM 0.0 - 0.5 06/04/2013 Normal [facility] HEMATOLOGY Lymphocytes # 1.0 K/CMM 1.0 - 5.5 06/04/2013 Normal [facility] HEMATOLOGY Monocytes # 0.3 K/CMM 0.0 - 0.8 06/04/2013 Normal [facility] HEMATOLOGY Segs-Bands # 5.9 K/CMM 1.5 - 8.1 06/04/2013 Normal [facility] HEMATOLOGY Monocytes 3.8 % 2.0 - 12.0 06/04/2013 Normal [facility] HEMATOLOGY Basophils 0.2 % 0.0 - 1.0 06/04/2013 Normal [facility] HEMATOLOGY Eosinophils 2.8 % 0.0 - 4.0 06/04/2013 Normal [facility] HEMATOLOGY Lymphocytes 13.5 % 20.0 - 40.0 06/04/2013 LOW [facility] HEMATOLOGY Segs 79.7 % 45.0 - 75.0 06/04/2013 HI [facility] HEMATOLOGY MCHC 31.6 g/dL 32.0 - 36.0 06/04/2013 LOW [facility] HEMATOLOGY RDW 15.1 % 11.5 - 14.5 06/04/2013 [facility] HEMATOLOGY Platelet 239 K/CMM 133 - 450 06/04/2013 Normal [facility] HEMATOLOGY MPV 10.0 fL 7.4 - 10.4 06/04/2013 Normal [facility] HEMATOLOGY Hct 37.1 % 36.0 - 48.0 06/04/2013 Normal [facility] HEMATOLOGY MCH 24.0 pg 27.0 - 31.0 06/04/2013 LOW [facility] HEMATOLOGY MCV 75.9 fL 81.0 - 99.0 06/04/2013 LOW [facility] HEMATOLOGY RBC X 10x6 4.89 M/CMM 4.20 - 5.40 06/04/2013 Normal [facility] HEMATOLOGY Hgb 11.7 g/dL 12.0 - 16.0 06/04/2013 LOW [facility] HEMATOLOGY WBC X 10x3 7.4 K/CMM 3.7 - 10.4 06/04/2013 Normal [facility] HEMATOLOGY D-Dimer 0.37 ug/mL FEU 06/04/2013 3Interpretive Data: In DIC, quantitative D-Dimer is generally greater than 0.66 ug/mL FEU. Values of quantitative D-Dimer less than 0.40 ug/mL FEU have been reported to be associated with a low probability of deep vein thrombosis/pulmonary embolism. This test alone should not be used to rule out DVT/PE. [facility] IMMUNOLOGY [facility] HIV 4th GEN Negative (06/04/2013 09:00:00) Negative 06/04/2013 Normal [facility] Extremity lower venous Doppler Unilat US Extremity lower venous Doppler Unilat US LEFT LOWER EXTREMITY VENOUS DOPPLER HISTORY: Left lower extremity pain. COMMENT: The deep venous system of the left lower extremity was interrogated from inguinal ligament to the popliteal fossae utilizing high-resolution duplex sonography (Color-flow and spectral Doppler). FINDINGS: The deep veins are readily visualized and easily compressible. There is normal spontaneous, phasic flow by Doppler with augmentation of flow with calf compression. This constitutes a negative exam. CONCLUSION: 1. Negative left lower extremity venous Doppler. SL: 13 Tacho Hyatt M.D. 06/04/2013 - - Read by: Tacho Hyatt Dictated Date/time: 06/04/13 11:33 Electronically Signed by: Tacho Hyatt MD 06/04/13 11:36 FINAL REPORT [facility] CHEMISTRY Phosphorus 2.9 mg/dL 2.5 - 4.5 04/27/2013 Normal [facility] CHEMISTRY Magnesium Lvl 1.8 mg/dL 1.8 - 2.4 04/27/2013 Normal [facility] CHEMISTRY BNP null <=100 04/27/2013 Normal 3Interpretive Data: Elevated results are in line with increasing severity of congestive heart failure. Minor elevations between 100 and 300 may be seen with Myocardial Ischemia, Sodium retaining drugs, and compensated/treated heart failure. [facility] CHEMISTRY eGFR 63 mL/min/1.73m2 04/27/2013 1Result Comment: The eGFR is calculated using the CKD-EPI formula. In most young, healthy individuals the eGFR will be >90 mL/min/1.73m2. The eGFR declines with age. An eGFR of 60-89 may be normal in some populations, particularly the elderly, for whom the CKD-EPI formula has not been extensively validated. Use of the eGFR is not recommended in the following populations: Individuals with unstable creatinine concentrations, including patients and those with serious co-morbid conditions. Patients with extremes in muscle mass or diet. The data above are obtained from the National Kidney Disease Education Program (NKDEP) which additionally recommends that when the eGFR is used in patients with extremes of body mass index for purposes of drug dosing, the eGFR should be multiplied by the estimated BMI. [facility] CHEMISTRY Creatinine Lvl 1.1 mg/dL 0.5 - 1.4 04/27/2013 Normal [facility] CHEMISTRY BUN 13 mg/dL 7 - 22 04/27/2013 Normal [facility] CHEMISTRY Glucose Lvl 160 mg/dL 70 - 99 04/27/2013 [place] 2Interpretive Data: Adult reference range values reflect the clinical guidelines of the [place] [employer]. [facility] CHEMISTRY Calcium Lvl 9.5 mg/dL 8.5 - 10.5 04/27/2013 Normal [facility] CHEMISTRY CO2 28 meq/L 24 - 32 04/27/2013 Normal [facility] CHEMISTRY Chloride Lvl 102 meq/L 95 - 109 04/27/2013 Normal [facility] CHEMISTRY Total Protein 8.0 g/dL 6.4 - 8.4 04/27/2013 Normal [facility] CHEMISTRY Potassium Lvl 3.3 meq/L 3.5 - 5.1 04/27/2013 LOW [facility] CHEMISTRY Sodium Lvl 138 meq/L 135 - 145 04/27/2013 Normal [facility] CHEMISTRY ASPARTATE TRANSAMINASE 17 unit/L 0 - 37 04/27/2013 Normal [facility] CHEMISTRY AGAP 11.3 meq/L 10.0 - 20.0 04/27/2013 Normal [facility] CHEMISTRY B/C Ratio 12 6 - 25 04/27/2013 Normal [facility] CHEMISTRY A/G Ratio 1.0 0.7 - 1.6 04/27/2013 Normal [facility] CHEMISTRY Globulin 4.0 g/dL 2.0 - 4.0 04/27/2013 Normal [facility] CHEMISTRY Alk Phos 120 unit/L 39 - 136 04/27/2013 Normal [facility] CHEMISTRY ALANINE AMINOTRANSFERASE 27 unit/L 0 - 65 04/27/2013 Normal [facility] CHEMISTRY Bili Total 0.5 mg/dL 0.2 - 1.3 04/27/2013 Normal [facility] CHEMISTRY Albumin Lvl 4.0 g/dL 3.5 - 5.0 04/27/2013 Normal [facility] CHEMISTRY Troponin-I null 0.00 - 0.40 04/27/2013 Normal [facility] CHEMISTRY CK MB 0.6 ng/mL 0.5 - 3.6 04/27/2013 Normal [facility] CHEMISTRY Total CK 173 unit/L 12 - 191 04/27/2013 Normal [facility] CHEMISTRY CK-MB INDEX 0.3 0.0 - 2.5 04/27/2013 Normal [facility] HEMATOLOGY INR 0.90 0.85 - 1.17 04/27/2013 Normal 4Interpretive Data: RECOMMENDED RANGES FOR PROTIME INR: 2.0-3.0 for most medical and surgical thromboembolic states. 2.5-3.5 for artificial heart valves and recurrent embolism. INR SHOULD BE USED ONLY FOR PATIENTS ON STABLE ANTICOAGULANT THERAPY. [facility] HEMATOLOGY PROTIME 12.1 s 12.0 - 14.7 04/27/2013 Normal [facility] [place] aPTT 26.8 s 22.9 - 35.8 04/27/2013 Normal 6Interpretive Data: Heparin Therapeutic Range: 57 - 92 Seconds [facility] [place] MCHC 31.8 g/dL 32.0 - 36.0 04/27/2013 LOW [facility] [place] RDW 14.5 % 11.5 - 14.5 04/27/2013 Normal [facility] [place] MCH 24.2 pg 27.0 - 31.0 04/27/2013 LOW [facility] [place] Platelet 297 K/CMM 133 - 450 04/27/2013 Normal [facility] [place] MPV 8.8 fL 7.4 - 10.4 04/27/2013 Normal [facility] [place] Hgb 12.0 g/dL 12.0 - 16.0 04/27/2013 Normal [facility] [place] RBC X 10x6 4.94 M/CMM 4.20 - 5.40 04/27/2013 Normal [facility] [place] WBC X 10x3 8.0 K/CMM 3.7 - 10.4 04/27/2013 Normal [facility] [place] MCV 76.1 fL 81.0 - 99.0 04/27/2013 LOW [facility] [place] Hct 37.6 % 36.0 - 48.0 04/27/2013 Normal [facility] HEMATOLOGY D-Dimer 0.35 ug/mL FEU 04/27/2013 5Interpretive Data: In DIC, quantitative D-Dimer is generally greater than 0.66 ug/mL FEU. Values of quantitative D-Dimer less than 0.40 ug/mL FEU have been reported to be associated with a low probability of deep vein thrombosis/pulmonary embolism. This test alone should not be used to rule out DVT/PE. [facility] HEMATOLOGY Basophils 0.8 % 0.0 - 1.0 04/27/2013 Normal [facility] HEMATOLOGY Eosinophils 1.5 % 0.0 - 4.0 04/27/2013 Normal [facility] HEMATOLOGY Monocytes 5.4 % 2.0 - 12.0 04/27/2013 Normal [facility] HEMATOLOGY Lymphocytes 20.2 % 20.0 - 40.0 04/27/2013 Normal [facility] HEMATOLOGY Monocytes # 0.4 K/CMM 0.0 - 0.8 04/27/2013 Normal [facility] HEMATOLOGY Eosinophils # 0.1 K/CMM 0.0 - 0.5 04/27/2013 Normal [facility] HEMATOLOGY Lymphocytes # 1.6 K/CMM 1.0 - 5.5 04/27/2013 Normal [facility] HEMATOLOGY Segs-Bands # 5.7 K/CMM 1.5 - 8.1 04/27/2013 Normal [facility] HEMATOLOGY Basophils # 0.1 K/CMM 0.0 - 0.2 04/27/2013 Normal [facility] HEMATOLOGY Segs 72.1 % 45.0 - 75.0 04/27/2013 Normal [facility] URINALYSIS UA Urobilinogen <=1.0 mg/dL 0.1 - 1.0 04/27/2013 [facility] URINALYSIS UA Color Colorless 04/27/2013 [facility] URINALYSIS UA Blood Negative (04/27/2013 13:20:00) Negative 04/27/2013 Normal [facility] URINALYSIS UA Bili Negative *NA* (04/27/2013 13:20:00) Negative 04/27/2013 [facility] URINALYSIS UA Ketones Negative mg/dL Negative 04/27/2013 [facility] URINALYSIS UA Glucose Negative mg/dL Negative 04/27/2013 [facility] URINALYSIS UA WBC 1 /HPF 0 - 5 04/27/2013 Normal [facility] URINALYSIS UA Bacteria Occasional /HPF None Seen 04/27/2013 [facility] URINALYSIS UA Renal Epi 3 /LPF <=0 04/27/2013 [facility] URINALYSIS UA RBC 2 /HPF 0 - 2 04/27/2013 Normal [facility] URINALYSIS UA Nitrite Negative (04/27/2013 13:20:00) Negative 04/27/2013 Normal [facility] URINALYSIS UA Sq Epi Occasional /LPF Few 04/27/2013 [facility] URINALYSIS UA Leuk Est Trace *ABN* (04/27/2013 13:20:00) Negative 04/27/2013 ABN [facility] URINALYSIS UA pH 6.0 5.0 - 8.0 04/27/2013 Normal [facility] URINALYSIS UA Protein Negative mg/dL Negative 04/27/2013 Normal [facility] URINALYSIS UA Spec Grav 1.002 <=1.030 04/27/2013 Normal [facility] URINALYSIS UA Turbidity Clear (04/27/2013 13:20:00) Clear 04/27/2013 Normal [facility] Chest 1view Chest 1view HISTORY: Chest pain. Portable chest one view. Comparison 09/27/2012 Lungs clear. Heart size normal. There is no pleural effusion or pneumothorax. IMPRESSION: No specific acute findings. SL:13 04/27/2013 - - Read by: Gabe Bashir Dictated Date/time: 04/27/13 13:28 Electronically Signed by: Gabe Bashir MD 04/27/13 13:29 FINAL REPORT [facility] BEDSIDE GLUCOSE TESTING Gluc POC Lifscn 177 mg/dL 70 - 99 10/05/2012 [place] 1Interpretive Data: Upper Reportable Limit: 200 mg/dL. [facility] BEDSIDE GLUCOSE TESTING Comment1 Notify AMEENA 10/05/2012 [facility] BEDSIDE GLUCOSE TESTING Gluc POC Lifscn 211 mg/dL 70 - 99 10/05/2012 [place] 2Interpretive Data: Upper Reportable Limit: 200 mg/dL. [facility] BEDSIDE GLUCOSE TESTING Comment1 Notify AMEENA 10/05/2012 NA [facility] BEDSIDE GLUCOSE TESTING Gluc POC Lif[place]n 151 mg/dL 70 - 99 10/05/2012 [place] 3Interpretive Data: Upper Reportable Limit: 200 mg/dL. [facility] CHEMISTRY eGFR 80 mL/min/1.73m2 10/05/2012 NA 4Result Comment: The eGFR is calculated using the CKD-EPI formula. In most young, healthy individuals the eGFR will be >90 mL/min/1.73m2. The eGFR declines with age. An eGFR of 60-89 may be normal in some populations, particularly the elderly, for whom the CKD-EPI formula has not been extensively validated. Use of the eGFR is not recommended in the following populations: Individuals with unstable creatinine concentrations, including patients and those with serious co-morbid conditions. Patients with extremes in muscle mass or diet. The data above are obtained from the National Kidney Disease Education Program (NKDEP) which additionally recommends that when the eGFR is used in patients with extremes of body mass index for purposes of drug dosing, the eGFR should be multiplied by the estimated BMI. [facility] CHEMISTRY Potassium Lvl 4.3 meq/L 3.5 - 5.1 10/05/2012 Normal [facility] CHEMISTRY Sodium Lvl 143 meq/L 135 - 145 10/05/2012 Normal [facility] CHEMISTRY Chloride Lvl 108 meq/L 95 - 109 10/05/2012 Normal [facility] CHEMISTRY Glucose Lvl 166 mg/dL 70 - 99 10/05/2012 [place] 7Interpretive Data: Adult reference range values reflect the clinical guidelines of the [place] [employer]. [facility] CHEMISTRY BUN 14 mg/dL 7 - 22 10/05/2012 Normal [facility] CHEMISTRY Total Protein 6.6 g/dL 6.4 - 8.4 10/05/2012 Normal [facility] CHEMISTRY AST 11 unit/L 0 - 37 10/05/2012 Normal [facility] CHEMISTRY Alk Phos 109 unit/L 39 - 136 10/05/2012 Normal [facility] CHEMISTRY Bili Total 0.5 mg/dL 0.2 - 1.3 10/05/2012 Normal [facility] CHEMISTRY CO2 25 meq/L 24 - 32 10/05/2012 Normal [facility] CHEMISTRY Creatinine Lvl 0.9 mg/dL 0.5 - 1.4 10/05/2012 Normal [facility] CHEMISTRY Calcium Lvl 9.0 mg/dL 8.5 - 10.5 10/05/2012 Normal [facility] CHEMISTRY Albumin Lvl 3.4 g/dL 3.5 - 5.0 10/05/2012 LOW [facility] CHEMISTRY ALT 23 unit/L 0 - 65 10/05/2012 Normal [facility] CHEMISTRY A/G Ratio 1.1 0.7 - 1.6 10/05/2012 Normal [facility] CHEMISTRY AGAP 14.3 meq/L 10.0 - 20.0 10/05/2012 Normal [facility] CHEMISTRY Globulin 3.2 g/dL 2.0 - 4.0 10/05/2012 Normal [facility] CHEMISTRY B/C Ratio 16 6 - 25 10/05/2012 Normal [facility] HEMATOLOGY Monocytes # 0.3 K/CMM 0.0 - 0.8 10/05/2012 Normal [facility] HEMATOLOGY Basophils # 0.0 K/CMM 0.0 - 0.2 10/05/2012 Normal [facility] HEMATOLOGY Eosinophils # 0.2 K/CMM 0.0 - 0.5 10/05/2012 Normal [facility] HEMATOLOGY Basophils 0.4 % 0.0 - 1.0 10/05/2012 Normal [facility] HEMATOLOGY Eosinophils 3.6 % 0.0 - 4.0 10/05/2012 Normal [facility] HEMATOLOGY Segs-Bands # 4.0 K/CMM 1.5 - 8.1 10/05/2012 Normal [facility] HEMATOLOGY Lymphocytes # 1.4 K/CMM 1.0 - 5.5 10/05/2012 Normal [facility] HEMATOLOGY Monocytes 5.6 % 2.0 - 12.0 10/05/2012 Normal [facility] HEMATOLOGY Lymphocytes 23.1 % 20.0 - 40.0 10/05/2012 [facility] [place] HEMATOLOGY Segs 67.3 % 45.0 - 75.0 10/05/2012 Normal [facility] HEMATOLOGY Hgb 11.8 g/dL 12.0 - 16.0 10/05/2012 LOW [facility] HEMATOLOGY RBC 4.78 M/CMM 4.20 - 5.40 10/05/2012 Normal [facility] HEMATOLOGY WBC 6.0 K/CMM 3.7 - 10.4 10/05/2012 Normal [facility] HEMATOLOGY MCV 77.2 fL 81.0 - 99.0 10/05/2012 [facility] HEMATOLOGY Hct 36.9 % 36.0 - 48.0 10/05/2012 Normal [facility] [place] MCH 24.7 pg 27.0 - 31.0 10/05/2012 [facility] HEMATOLOGY MPV 8.9 fL 7.4 - 10.4 10/05/2012 Normal [facility] HEMATOLOGY Platelet 196 K/CMM 133 - 450 10/05/2012 [facility] [place] HEMATOLOGY RDW 14.7 % 11.5 - 14.5 10/05/2012 [place] [facility] HEMATOLOGY MCHC 32.0 g/dL 32.0 - 36.0 10/05/2012 Normal [facility] BEDSIDE GLUCOSE TESTING Comment1 Notify RN/ 10/05/2012 NA [facility] CHEMISTRY eGFR 70 mL/min/1.73m2 10/04/2012 NA 5Result Comment: The eGFR is calculated using the CKD-EPI formula. In most young, healthy individuals the eGFR will be >90 mL/min/1.73m2. The eGFR declines with age. An eGFR of 60-89 may be normal in some populations, particularly the elderly, for whom the CKD-EPI formula has not been extensively validated. Use of the eGFR is not recommended in the following populations: Individuals with unstable creatinine concentrations, including patients and those with serious co-morbid conditions. Patients with extremes in muscle mass or diet. The data above are obtained from the National Kidney Disease Education Program (NKDEP) which additionally recommends that when the eGFR is used in patients with extremes of body mass index for purposes of drug dosing, the eGFR should be multiplied by the estimated BMI. [facility] CHEMISTRY CO2 27 meq/L 24 - 32 10/04/2012 Normal [facility] CHEMISTRY Calcium Lvl 8.3 mg/dL 8.5 - 10.5 10/04/2012 LOW [facility] CHEMISTRY AGAP 11.9 meq/L 10.0 - 20.0 10/04/2012 Normal [facility] CHEMISTRY BUN 13 mg/dL 7 - 22 10/04/2012 Normal [facility] CHEMISTRY Creatinine Lvl 1.0 mg/dL 0.5 - 1.4 10/04/2012 Normal [facility] CHEMISTRY Glucose Lvl 195 mg/dL 70 - 99 10/04/2012 [place] 8Interpretive Data: Adult reference range values reflect the clinical guidelines of the [place] [employer]. [facility] CHEMISTRY Chloride Lvl 109 meq/L 95 - 109 10/04/2012 Normal [facility] CHEMISTRY Sodium Lvl 144 meq/L 135 - 145 10/04/2012 Normal [facility] CHEMISTRY Potassium Lvl 3.9 meq/L 3.5 - 5.1 10/04/2012 Normal [facility] CHEMISTRY Phosphorus 2.8 mg/dL 2.5 - 4.5 10/04/2012 Normal [facility] CHEMISTRY Magnesium Lvl 2.0 mg/dL 1.8 - 2.4 10/04/2012 Normal [facility] HEMATOLOGY Basophils # 0.0 K/CMM 0.0 - 0.2 10/04/2012 Normal [facility] HEMATOLOGY Monocytes # 0.2 K/CMM 0.0 - 0.8 10/04/2012 Normal [facility] HEMATOLOGY Eosinophils # 0.2 K/CMM 0.0 - 0.5 10/04/2012 Normal [facility] HEMATOLOGY Lymphocytes # 1.0 K/CMM 1.0 - 5.5 10/04/2012 Normal [facility] HEMATOLOGY Eosinophils 3.8 % 0.0 - 4.0 10/04/2012 Normal [facility] HEMATOLOGY Monocytes 3.9 % 2.0 - 12.0 10/04/2012 Normal [facility] HEMATOLOGY Segs-Bands # 4.3 K/CMM 1.5 - 8.1 10/04/2012 Normal [facility] HEMATOLOGY Basophils 0.4 % 0.0 - 1.0 10/04/2012 Normal [facility] HEMATOLOGY Segs 74.8 % 45.0 - 75.0 10/04/2012 Normal [facility] HEMATOLOGY Lymphocytes 17.1 % 20.0 - 40.0 10/04/2012 LOW [facility] HEMATOLOGY MCHC 32.1 g/dL 32.0 - 36.0 10/04/2012 Normal [facility] HEMATOLOGY Platelet 206 K/CMM 133 - 450 10/04/2012 Normal [facility] HEMATOLOGY MPV 8.5 fL 7.4 - 10.4 10/04/2012 Normal [facility] HEMATOLOGY RDW 14.6 % 11.5 - 14.5 10/04/2012 [place] [facility] HEMATOLOGY RBC 4.41 M/CMM 4.20 - 5.40 10/04/2012 Normal [facility] HEMATOLOGY Hct 34.5 % 36.0 - 48.0 10/04/2012 LOW [facility] HEMATOLOGY MCV 78.2 fL 81.0 - 99.0 10/04/2012 LOW [facility] HEMATOLOGY MCH 25.1 pg 27.0 - 31.0 10/04/2012 LOW [facility] HEMATOLOGY Hgb 11.1 g/dL 12.0 - 16.0 10/04/2012 LOW [facility] HEMATOLOGY WBC 5.8 K/CMM 3.7 - 10.4 10/04/2012 Normal [facility] CHEMISTRY A/G Ratio 1.1 0.7 - 1.6 10/03/2012 Normal [facility] CHEMISTRY Globulin 3.1 g/dL 2.0 - 4.0 10/03/2012 Normal [facility] CHEMISTRY B/C Ratio 14 6 - 25 10/03/2012 Normal [facility] CHEMISTRY AGAP 11.1 meq/L 10.0 - 20.0 10/03/2012 Normal [facility] CHEMISTRY eGFR 80 mL/min/1.73m2 10/03/2012 NA 6Result Comment: The eGFR is calculated using the CKD-EPI formula. In most young, healthy individuals the eGFR will be >90 mL/min/1.73m2. The eGFR declines with age. An eGFR of 60-89 may be normal in some populations, particularly the elderly, for whom the CKD-EPI formula has not been extensively validated. Use of the eGFR is not recommended in the following populations: Individuals with unstable creatinine concentrations, including patients and those with serious co-morbid conditions. Patients with extremes in muscle mass or diet. The data above are obtained from the National Kidney Disease Education Program (NKDEP) which additionally recommends that when the eGFR is used in patients with extremes of body mass index for purposes of drug dosing, the eGFR should be multiplied by the estimated BMI. [facility] CHEMISTRY Total Protein 6.6 g/dL 6.4 - 8.4 10/03/2012 Normal [facility] CHEMISTRY Creatinine Lvl 0.9 mg/dL 0.5 - 1.4 10/03/2012 Normal [facility] CHEMISTRY CO2 27 meq/L 24 - 32 10/03/2012 Normal [facility] CHEMISTRY Calcium Lvl 8.8 mg/dL 8.5 - 10.5 10/03/2012 Normal [facility] CHEMISTRY ALT 25 unit/L 0 - 65 10/03/2012 Normal [facility] CHEMISTRY Alk Phos 110 unit/L 39 - 136 10/03/2012 Normal [facility] CHEMISTRY Bili Total 0.4 mg/dL 0.2 - 1.3 10/03/2012 Normal [facility] CHEMISTRY AST 22 unit/L 0 - 37 10/03/2012 Normal [facility] CHEMISTRY Albumin Lvl 3.5 g/dL 3.5 - 5.0 10/03/2012 Normal [facility] CHEMISTRY BUN 13 mg/dL 7 - 22 10/03/2012 Normal [facility] CHEMISTRY Glucose Lvl 135 mg/dL 70 - 99 10/03/2012 HI 9Interpretive Data: Adult reference range values reflect the clinical guidelines of the [place] [employer]. [facility] CHEMISTRY Chloride Lvl 110 meq/L 95 - 109 10/03/2012 HI [facility] CHEMISTRY Sodium Lvl 144 meq/L 135 - 145 10/03/2012 Normal [facility] CHEMISTRY Potassium Lvl 4.1 meq/L 3.5 - 5.1 10/03/2012 Normal [facility] HEMATOLOGY PTT 28.6 s 22.9 - 35.8 10/03/2012 Normal 12Interpretive Data: Heparin Therapeutic Range: 57 - 92 Seconds [facility] HEMATOLOGY PT 12.4 s 12.0 - 14.7 10/03/2012 Normal [facility] HEMATOLOGY INR 0.90 0.85 - 1.17 10/03/2012 Normal 10Interpretive Data: RECOMMENDED RANGES FOR PROTIME INR: 2.0-3.0 for most medical and surgical thromboembolic states. 2.5-3.5 for artificial heart valves and recurrent embolism. INR SHOULD BE USED ONLY FOR PATIENTS ON STABLE ANTICOAGULANT THERAPY. [facility] HEMATOLOGY MPV 8.6 fL 7.4 - 10.4 10/03/2012 Normal [facility] HEMATOLOGY Platelet 194 K/CMM 133 - 450 10/03/2012 Normal [facility] HEMATOLOGY MCV 78.5 fL 81.0 - 99.0 10/03/2012 LOW [facility] HEMATOLOGY MCHC 31.5 g/dL 32.0 - 36.0 10/03/2012 LOW [facility] HEMATOLOGY MCH 24.8 pg 27.0 - 31.0 10/03/2012 LOW [facility] HEMATOLOGY WBC 5.4 K/CMM 3.7 - 10.4 10/03/2012 Normal [facility] HEMATOLOGY RDW 14.6 % 11.5 - 14.5 10/03/2012 HI [facility] HEMATOLOGY RBC 4.54 M/CMM 4.20 - 5.40 10/03/2012 Normal [facility] HEMATOLOGY Hgb 11.2 g/dL 12.0 - 16.0 10/03/2012 LOW [facility] HEMATOLOGY Hct 35.6 % 36.0 - 48.0 10/03/2012 LOW [facility] HEMATOLOGY Basophils # 0.0 K/CMM 0.0 - 0.2 10/03/2012 Normal [facility] HEMATOLOGY Eosinophils # 0.2 K/CMM 0.0 - 0.5 10/03/2012 Normal [facility] HEMATOLOGY Monocytes # 0.3 K/CMM 0.0 - 0.8 10/03/2012 Normal [facility] HEMATOLOGY Basophils 0.4 % 0.0 - 1.0 10/03/2012 Normal [facility] HEMATOLOGY Segs 64.2 % 45.0 - 75.0 10/03/2012 Normal [facility] HEMATOLOGY Lymphocytes 25.8 % 20.0 - 40.0 10/03/2012 Normal [facility] HEMATOLOGY Segs-Bands # 3.5 K/CMM 1.5 - 8.1 10/03/2012 Normal [facility] HEMATOLOGY Eosinophils 3.7 % 0.0 - 4.0 10/03/2012 Normal [facility] HEMATOLOGY Monocytes 5.9 % 2.0 - 12.0 10/03/2012 Normal [facility] HEMATOLOGY Lymphocytes # 1.4 K/CMM 1.0 - 5.5 10/03/2012 Normal [facility] HEMATOLOGY PT 12.3 s 12.0 - 14.7 10/03/2012 Normal [facility] HEMATOLOGY INR 0.89 0.85 - 1.17 10/03/2012 Normal 11Interpretive Data: RECOMMENDED RANGES FOR PROTIME INR: 2.0-3.0 for most medical and surgical thromboembolic states. 2.5-3.5 for artificial heart valves and recurrent embolism. INR SHOULD BE USED ONLY FOR PATIENTS ON STABLE ANTICOAGULANT THERAPY. [facility] BLOOD BANK RESULTS Antibody Scrn Negative (10/02/2012 11:00:00) 10/02/2012 Normal [facility] BLOOD BANK RESULTS ABO/Rh O POS 10/02/2012 Unknown [facility] STOOL TESTS Occult Bld Stl Positive *ABN* (10/02/2012 09:28:00) Negative 10/02/2012 ABN [facility] CHEMISTRY Lipase Lvl 191 unit/L 73 - 393 10/02/2012 Normal [facility] CHEMISTRY Amylase Lvl 72 unit/L 25 - 115 10/02/2012 Normal [facility] CHEMISTRY A/G Ratio 1.0 0.7 - 1.6 10/02/2012 Normal [facility] CHEMISTRY Globulin 3.9 g/dL 2.0 - 4.0 10/02/2012 Normal [facility] CHEMISTRY B/C Ratio 20 6 - 25 10/02/2012 Normal [facility] CHEMISTRY AGAP 12.7 meq/L 10.0 - 20.0 10/02/2012 Normal [facility] CHEMISTRY Chloride Lvl 108 meq/L 95 - 109 10/02/2012 Normal [facility] CHEMISTRY Potassium Lvl 4.7 meq/L 3.5 - 5.1 10/02/2012 Normal [facility] CHEMISTRY Sodium Lvl 143 meq/L 135 - 145 10/02/2012 Normal [facility] CHEMISTRY eGFR 92 mL/min/1.73m2 10/02/2012 NA 1Result Comment: The eGFR is calculated using the CKD-EPI formula. In most young, healthy individuals the eGFR will be >90 mL/min/1.73m2. The eGFR declines with age. An eGFR of 60-89 may be normal in some populations, particularly the elderly, for whom the CKD-EPI formula has not been extensively validated. Use of the eGFR is not recommended in the following populations: Individuals with unstable creatinine concentrations, including patients and those with serious co-morbid conditions. Patients with extremes in muscle mass or diet. The data above are obtained from the National Kidney Disease Education Program (NKDEP) which additionally recommends that when the eGFR is used in patients with extremes of body mass index for purposes of drug dosing, the eGFR should be multiplied by the estimated BMI. [facility] CHEMISTRY Total Protein 7.7 g/dL 6.4 - 8.4 10/02/2012 Normal [facility] CHEMISTRY Albumin Lvl 3.8 g/dL 3.5 - 5.0 10/02/2012 Normal [facility] CHEMISTRY Bili Total 0.6 mg/dL 0.2 - 1.3 10/02/2012 Normal [facility] CHEMISTRY AST 22 unit/L 0 - 37 10/02/2012 Normal [facility] CHEMISTRY Creatinine Lvl 0.8 mg/dL 0.5 - 1.4 10/02/2012 Normal [facility] CHEMISTRY Calcium Lvl 9.1 mg/dL 8.5 - 10.5 10/02/2012 Normal [facility] CHEMISTRY CO2 27 meq/L 24 - 32 10/02/2012 Normal [facility] CHEMISTRY Alk Phos 115 unit/L 39 - 136 10/02/2012 Normal [facility] CHEMISTRY ALT 26 unit/L 0 - 65 10/02/2012 Normal [facility] CHEMISTRY BUN 16 mg/dL 7 - 22 10/02/2012 Normal [facility] CHEMISTRY Glucose Lvl 158 mg/dL 70 - 99 10/02/2012 HI 2Interpretive Data: Adult reference range values reflect the clinical guidelines of the [place] [employer]. [facility] CHEMISTRY Troponin-I null 0.00 - 0.40 10/02/2012 Normal [facility] CHEMISTRY CK MB 0.7 ng/mL 0.5 - 3.6 10/02/2012 Normal [facility] CHEMISTRY Total CK 188 unit/L 12 - 191 10/02/2012 Normal [facility] CHEMISTRY CK MB Index 0.4 0.0 - 2.5 10/02/2012 Normal [facility] HEMATOLOGY Segs 69.7 % 45.0 - 75.0 10/02/2012 Normal [facility] HEMATOLOGY Lymphocytes 22.1 % 20.0 - 40.0 10/02/2012 Normal [facility] HEMATOLOGY Monocytes 5.2 % 2.0 - 12.0 10/02/2012 Normal [facility] HEMATOLOGY Eosinophils 2.9 % 0.0 - 4.0 10/02/2012 Normal [facility] HEMATOLOGY Basophils 0.1 % 0.0 - 1.0 10/02/2012 Normal [facility] HEMATOLOGY Segs-Bands # 4.3 K/CMM 1.5 - 8.1 10/02/2012 Normal [facility] HEMATOLOGY Monocytes # 0.3 K/CMM 0.0 - 0.8 10/02/2012 Normal [facility] HEMATOLOGY Lymphocytes # 1.4 K/CMM 1.0 - 5.5 10/02/2012 Normal [facility] HEMATOLOGY Eosinophils # 0.2 K/CMM 0.0 - 0.5 10/02/2012 Normal [facility] HEMATOLOGY Basophils # 0.0 K/CMM 0.0 - 0.2 10/02/2012 Normal [facility] HEMATOLOGY RDW 14.8 % 11.5 - 14.5 10/02/2012 HI [facility] HEMATOLOGY Platelet 215 K/CMM 133 - 450 10/02/2012 Normal [facility] HEMATOLOGY MPV 9.0 fL 7.4 - 10.4 10/02/2012 Normal [facility] HEMATOLOGY WBC 6.2 K/CMM 3.7 - 10.4 10/02/2012 Normal [facility] HEMATOLOGY RBC 4.85 M/CMM 4.20 - 5.40 10/02/2012 Normal [facility] [place] Hct 37.5 % 36.0 - 48.0 10/02/2012 Normal [facility] [place] Hgb 12.1 g/dL 12.0 - 16.0 10/02/2012 Normal [facility] [place] MCH 25.0 pg 27.0 - 31.0 10/02/2012 LOW [facility] HEMATOLOGY MCHC 32.3 g/dL 32.0 - 36.0 10/02/2012 Normal [facility] [place] MCV 77.4 fL 81.0 - 99.0 10/02/2012 LOW [facility] URINALYSIS UA Color Ltyellow 10/02/2012 NA [facility] URINALYSIS UA Urobilinogen <=1.0 mg/dL
*NA*
(10/02/2012 08:45:00) <sup> </sup> 0.1 - 1.0 10/02/2012 NA [facility] URINALYSIS UA Blood Negative (10/02/2012 08:45:00) Negative 10/02/2012 Normal [facility] URINALYSIS UA Nitrite Negative (10/02/2012 08:45:00) Negative 10/02/2012 Normal [facility] URINALYSIS UA Sq Epi Occasional /LPF *NA* (10/02/2012 08:45:00) Few 10/02/2012 NA [facility] URINALYSIS UA Leuk Est Negative (10/02/2012 08:45:00) Negative 10/02/2012 Normal [facility] URINALYSIS UA WBC 1 /HPF 0 - 5 10/02/2012 Normal [facility] URINALYSIS UA Mucus Few /LPF *NA* (10/02/2012 08:45:00) None Seen 10/02/2012 [facility] URINALYSIS UA RBC null 0 - 2 10/02/2012 Normal [facility] URINALYSIS UA pH 5.0 5.0 - 8.0 10/02/2012 Normal [facility] URINALYSIS UA Protein Negative mg/dL (10/02/2012 08:45:00) Negative 10/02/2012 Normal [facility] URINALYSIS UA Glucose Negative mg/dL *NA* (10/02/2012 08:45:00) Negative 10/02/2012 [facility] URINALYSIS UA Ketones Negative mg/dL *NA* (10/02/2012 08:45:00) Negative 10/02/2012 [facility] URINALYSIS UA Bili Negative *NA* (10/02/2012 08:45:00) Negative 10/02/2012 [facility] URINALYSIS UA Turbidity Clear (10/02/2012 08:45:00) Clear 10/02/2012 Normal [facility] URINALYSIS UA Spec Grav 1.008 <=1.030 10/02/2012 Normal [facility] Bowel acute blood loss imaging ND Bowel acute blood loss imaging NM GI bleed study Technique: 25 mCi of Tc 99m Ultra tag RBCs were administered intravenously and dynamic imaging performed for 60 minutes. FINDINGS: There is no abnormal accumulation of tracer activity noted in the abdomen and the visualized portion of the upper pelvis. Physiologic tracer activity is evident in the vasculature and solid organs. IMPRESSION: No scintigraphic evidence for an active GI bleed. SL:13 10/02/2012 - - Read by: Rahul Orozco Dictated Date/time: 10/02/12 13:18 Electronically Signed by: Rahul Orozco MD 10/02/12 13:19 FINAL REPORT [facility] Abdomen/Pelvis wo contrast CT Abdomen/Pelvis wo contrast CT CT abdomen without contrast, CT pelvis without contrast. COMPARISON: 10/30/2011. TECHNIQUE: Contiguous transaxial images of the abdomen and pelvis were performed from the lung bases to the superior pubic rami without IV or oral contrast. CT ABDOMEN: There is no evidence for renal calculi, distal ureteric calculi or any secondary signs of obstruction. Given the limitations of a noncontrast study, no gross abnormality is noted in the liver, spleen, pancreas, or either adrenal gland. Status post cholecystectomy. The appendix demonstrates normal morphology. There is no evidence for free fluid or free air in the abdomen. No significant retroperitoneal lymphadenopathy is noted. CT PELVIS: There is no evidence for distal ureteric or bladder calculi. Occasional phleboliths are incidentally noted. Given the limitation of a noncontrast study, no gross abnormality is seen in the bladder and adnexa. Status post hysterectomy. No free fluid is present in the pelvis. Bony structures are grossly unremarkable. IMPRESSION: No significant abnormality is noted on the noncontrast CT of the abdomen or pelvis. SL:13 10/02/2012 - - Read by: Rahul Orozco Dictated Date/time: 10/02/12 10:25 Electronically Signed by: Rahul Orozco MD 10/02/12 10:32 FINAL REPORT [facility] GLUCOSE TESTING Gluc POC Lifscn 167 mg/dL 70 - 99 09/30/2012 HI 1Interpretive Data: Upper Reportable Limit: 200 mg/dL. [facility] BEDSIDE GLUCOSE TESTING Comment1 Notify ROBERT/ 09/30/2012 NA [facility] CHEMISTRY Potassium Lvl 4.2 meq/L 3.5 - 5.1 09/30/2012 Normal [facility] CHEMISTRY Sodium Lvl 144 meq/L 135 - 145 09/30/2012 Normal [facility] CHEMISTRY Chloride Lvl 111 meq/L 95 - 109 09/30/2012 HI [facility] CHEMISTRY eGFR 80 mL/min/1.73m2 09/30/2012 NA 4Result Comment: The eGFR is calculated using the CKD-EPI formula. In most young, healthy individuals the eGFR will be >90 mL/min/1.73m2. The eGFR declines with age. An eGFR of 60-89 may be normal in some populations, particularly the elderly, for whom the CKD-EPI formula has not been extensively validated. Use of the eGFR is not recommended in the following populations: Individuals with unstable creatinine concentrations, including patients and those with serious co-morbid conditions. Patients with extremes in muscle mass or diet. The data above are obtained from the National Kidney Disease Education Program (NKDEP) which additionally recommends that when the eGFR is used in patients with extremes of body mass index for purposes of drug dosing, the eGFR should be multiplied by the estimated BMI. [facility] CHEMISTRY BUN 15 mg/dL 7 - 22 09/30/2012 Normal [facility] CHEMISTRY Creatinine Lvl 0.9 mg/dL 0.5 - 1.4 09/30/2012 Normal [facility] CHEMISTRY CO2 26 meq/L 24 - 32 09/30/2012 Normal [facility] CHEMISTRY Calcium Lvl 8.8 mg/dL 8.5 - 10.5 09/30/2012 Normal [facility] CHEMISTRY Glucose Lvl 153 mg/dL 70 - 99 09/30/2012 HI 7Interpretive Data: Adult reference range values reflect the clinical guidelines of the [place] [employer]. [facility] CHEMISTRY AGAP 11.2 meq/L 10.0 - 20.0 09/30/2012 Normal [facility] HEMATOLOGY Lymphocytes # 1.2 K/CMM 1.0 - 5.5 09/30/2012 Normal [facility] HEMATOLOGY Monocytes # 0.4 K/CMM 0.0 - 0.8 09/30/2012 Normal [facility] HEMATOLOGY Basophils # 0.0 K/CMM 0.0 - 0.2 09/30/2012 Normal [facility] HEMATOLOGY Eosinophils # 0.1 K/CMM 0.0 - 0.5 09/30/2012 Normal [facility] HEMATOLOGY Monocytes 8.7 % 2.0 - 12.0 09/30/2012 Normal [facility] HEMATOLOGY Lymphocytes 23.6 % 20.0 - 40.0 09/30/2012 Normal [facility] HEMATOLOGY Segs 64.7 % 45.0 - 75.0 09/30/2012 Normal [facility] HEMATOLOGY Eosinophils 2.5 % 0.0 - 4.0 09/30/2012 Normal [facility] HEMATOLOGY Segs-Bands # 3.3 K/CMM 1.5 - 8.1 09/30/2012 Normal [facility] HEMATOLOGY Basophils 0.5 % 0.0 - 1.0 09/30/2012 Normal [facility] HEMATOLOGY MPV 8.6 fL 7.4 - 10.4 09/30/2012 Normal [facility] HEMATOLOGY RDW 14.3 % 11.5 - 14.5 09/30/2012 Normal [facility] HEMATOLOGY Platelet 210 K/CMM 133 - 450 09/30/2012 Normal [facility] HEMATOLOGY MCH 25.2 pg 27.0 - 31.0 09/30/2012 LOW [facility] HEMATOLOGY MCHC 32.5 g/dL 32.0 - 36.0 09/30/2012 Normal [facility] HEMATOLOGY Hct 36.0 % 36.0 - 48.0 09/30/2012 Normal [facility] HEMATOLOGY Hgb 11.7 g/dL 12.0 - 16.0 09/30/2012 LOW [facility] HEMATOLOGY MCV 77.7 fL 81.0 - 99.0 09/30/2012 LOW [facility] HEMATOLOGY RBC 4.63 M/CMM 4.20 - 5.40 09/30/2012 Normal [facility] HEMATOLOGY WBC 5.2 K/CMM 3.7 - 10.4 09/30/2012 Normal [facility] BEDSIDE GLUCOSE TESTING Gluc POC Lifscn 207 mg/dL 70 - 99 09/30/2012 HI 2Interpretive Data: Upper Reportable Limit: 200 mg/dL. [facility] BEDSIDE GLUCOSE TESTING Gluc POC Lifscn 117 mg/dL - 99 09/29/2012 HI 3Interpretive Data: Upper Reportable Limit: 200 mg/dL. [facility] BEDSIDE GLUCOSE TESTING Comment1 Notify RN/ 09/29/2012 NA [facility] BEDSIDE GLUCOSE TESTING Comment1 Notify RN/ 09/29/2012 NA [facility] CHEMISTRY eGFR 80 mL/min/1.73m2 09/29/2012 NA 5Result Comment: The eGFR is calculated using the CKD-EPI formula. In most young, healthy individuals the eGFR will be >90 mL/min/1.73m2. The eGFR declines with age. An eGFR of 60-89 may be normal in some populations, particularly the elderly, for whom the CKD-EPI formula has not been extensively validated. Use of the eGFR is not recommended in the following populations: Individuals with unstable creatinine concentrations, including patients and those with serious co-morbid conditions. Patients with extremes in muscle mass or diet. The data above are obtained from the National Kidney Disease Education Program (NKDEP) which additionally recommends that when the eGFR is used in patients with extremes of body mass index for purposes of drug dosing, the eGFR should be multiplied by the estimated BMI. [facility] CHEMISTRY Glucose Lvl 112 mg/dL 70 - 99 09/29/2012 HI 8Interpretive Data: Adult reference range values reflect the clinical guidelines of the [place] [employer]. [facility] CHEMISTRY BUN 9 mg/dL 7 - 22 09/29/2012 Normal [facility] CHEMISTRY Creatinine Lvl 0.9 mg/dL 0.5 - 1.4 09/29/2012 Normal [facility] CHEMISTRY CO2 26 meq/L 24 - 32 09/29/2012 Normal [facility] CHEMISTRY Calcium Lvl 8.5 mg/dL 8.5 - 10.5 09/29/2012 Normal [facility] CHEMISTRY Potassium Lvl 3.8 meq/L 3.5 - 5.1 09/29/2012 Normal [facility] CHEMISTRY Chloride Lvl 111 meq/L 95 - 109 09/29/2012 [facility] CHEMISTRY Sodium Lvl 147 meq/L 135 - 145 09/29/2012 [facility] CHEMISTRY AGAP 13.8 meq/L 10.0 - 20.0 09/29/2012 Normal [facility] HEMATOLOGY RBC 4.53 M/CMM 4.20 - 5.40 09/29/2012 Normal [facility] HEMATOLOGY Hgb 11.2 g/dL 12.0 - 16.0 09/29/2012 LOW [facility] HEMATOLOGY WBC 5.7 K/CMM 3.7 - 10.4 09/29/2012 Normal [facility] HEMATOLOGY MCV 78.1 fL 81.0 - 99.0 09/29/2012 LOW [facility] HEMATOLOGY RDW 14.4 % 11.5 - 14.5 09/29/2012 Normal [facility] HEMATOLOGY MCHC 31.6 g/dL 32.0 - 36.0 09/29/2012 LOW [facility] HEMATOLOGY MCH 24.7 pg 27.0 - 31.0 09/29/2012 LOW [facility] HEMATOLOGY Platelet 207 K/CMM 133 - 450 09/29/2012 Normal [facility] HEMATOLOGY MPV 8.6 fL 7.4 - 10.4 09/29/2012 Normal [facility] HEMATOLOGY Hct 35.4 % 36.0 - 48.0 09/29/2012 LOW [facility] HEMATOLOGY Eosinophils # 0.1 K/CMM 0.0 - 0.5 09/29/2012 Normal [facility] HEMATOLOGY Basophils # 0.1 K/CMM 0.0 - 0.2 09/29/2012 Normal [facility] HEMATOLOGY Segs 62.8 % 45.0 - 75.0 09/29/2012 Normal [facility] HEMATOLOGY Monocytes # 0.4 K/CMM 0.0 - 0.8 09/29/2012 Normal [facility] HEMATOLOGY Lymphocytes # 1.4 K/CMM 1.0 - 5.5 09/29/2012 Normal [facility] HEMATOLOGY Segs-Bands # 3.6 K/CMM 1.5 - 8.1 09/29/2012 Normal [facility] HEMATOLOGY Basophils 1.8 % 0.0 - 1.0 09/29/2012 HI [facility] HEMATOLOGY Eosinophils 2.6 % 0.0 - 4.0 09/29/2012 Normal [facility] HEMATOLOGY Monocytes 7.5 % 2.0 - 12.0 09/29/2012 Normal [facility] HEMATOLOGY Lymphocytes 25.3 % 20.0 - 40.0 09/29/2012 Normal [facility] HEMATOLOGY Hgb 11.6 g/dL 12.0 - 16.0 09/28/2012 LOW [facility] HEMATOLOGY Hct 38.8 % 36.0 - 48.0 09/27/2012 Normal [facility] Chest 1view Chest 1view PROCEDURE: Chest 1view REASON FOR EXAM: See Clinic Indication CLINICAL INDICATION: Chest pain COMPARISON: 10/29/2011. FINDINGS: No acute process. No focal consolidation, pleural effusion, or pneumothorax. Stable cardiac silhouette and mediastinum. SL: 13 09/27/2012 - - Read by: Richard Luna Dictated Date/time: 09/28/12 08:36 Electronically Signed by: Richard Luna MD 09/28/12 08:36 FINAL REPORT [facility] STOOL TESTS Occult Bld Stl Positive *ABN* (09/27/2012 16:27:00) Negative 09/27/2012 ABN [facility] URINALYSIS UA Urobilinogen <=1.0 mg/dL
*NA*
(09/27/2012 16:13:00) <sup> </sup> 0.1 - 1.0 09/27/2012 [facility] URINALYSIS UA Mucus Few /LPF *NA* (09/27/2012 16:13:00) None Seen 09/27/2012 [facility] URINALYSIS UA RBC 1 /HPF 0 - 2 09/27/2012 Normal [facility] URINALYSIS UA Bacteria Occasional /HPF *NA* (09/27/2012 16:13:00) None Seen 09/27/2012 [facility] URINALYSIS UA WBC 3 /HPF 0 - 5 09/27/2012 Normal [facility] URINALYSIS UA Sq Epi Few /LPF *NA* (09/27/2012 16:13:00) Few 09/27/2012 [facility] URINALYSIS UA Leuk Est Trace *ABN* (09/27/2012 16:13:00) Negative 09/27/2012 ABN [facility] URINALYSIS UA Protein Negative mg/dL (09/27/2012 16:13:00) Negative 09/27/2012 Normal [facility] URINALYSIS UA pH 5.0 5.0 - 8.0 09/27/2012 Normal [facility] URINALYSIS UA Spec Grav 1.023 <=1.030 09/27/2012 Normal [facility] URINALYSIS UA Turbidity Clear (09/27/2012 16:13:00) Clear 09/27/2012 Normal [facility] URINALYSIS UA Color Yellow *NA* (09/27/2012 16:13:00) Yellow 09/27/2012 NA [facility] URINALYSIS UA Ketones Negative mg/dL *NA* (09/27/2012 16:13:00) Negative 09/27/2012 [facility] URINALYSIS UA Glucose Negative mg/dL *NA* (09/27/2012 16:13:00) Negative 09/27/2012 NA [facility] URINALYSIS UA Nitrite Negative (09/27/2012 16:13:00) Negative 09/27/2012 Normal [facility] URINALYSIS UA Blood Negative (09/27/2012 16:13:00) Negative 09/27/2012 Normal [facility] URINALYSIS UA Bili Negative *NA* (09/27/2012 16:13:00) Negative 09/27/2012 [facility] Microbiology Culture: Urine 09/27/2012 [facility] BLOOD BANK RESULTS Antibody Scrn Negative (09/27/2012 16:05:00) 09/27/2012 Normal [facility] BLOOD BANK RESULTS ABO/Rh O POS 09/27/2012 Unknown [facility] CHEMISTRY eGFR 63 mL/min/1.73m2 09/27/2012 NA 6Result Comment: The eGFR is calculated using the CKD-EPI formula. In most young, healthy individuals the eGFR will be >90 mL/min/1.73m2. The eGFR declines with age. An eGFR of 60-89 may be normal in some populations, particularly the elderly, for whom the CKD-EPI formula has not been extensively validated. Use of the eGFR is not recommended in the following populations: Individuals with unstable creatinine concentrations, including patients and those with serious co-morbid conditions. Patients with extremes in muscle mass or diet. The data above are obtained from the National Kidney Disease Education Program (NKDEP) which additionally recommends that when the eGFR is used in patients with extremes of body mass index for purposes of drug dosing, the eGFR should be multiplied by the estimated BMI. [facility] CHEMISTRY Calcium Lvl 9.2 mg/dL 8.5 - 10.5 09/27/2012 Normal [facility] CHEMISTRY BUN 21 mg/dL 7 - 22 09/27/2012 Normal [facility] CHEMISTRY Glucose Lvl 123 mg/dL 70 - 99 09/27/2012 HI 9Interpretive Data: Adult reference range values reflect the clinical guidelines of the [place] [employer]. [facility] CHEMISTRY CO2 26 meq/L 24 - 32 09/27/2012 Normal [facility] CHEMISTRY Creatinine Lvl 1.1 mg/dL 0.5 - 1.4 09/27/2012 Normal [facility] CHEMISTRY Chloride Lvl 104 meq/L 95 - 109 09/27/2012 Normal [facility] CHEMISTRY Sodium Lvl 142 meq/L 135 - 145 09/27/2012 Normal [facility] CHEMISTRY Potassium Lvl 3.8 meq/L 3.5 - 5.1 09/27/2012 Normal [facility] CHEMISTRY AGAP 15.8 meq/L 10.0 - 20.0 09/27/2012 Normal [facility] HEMATOLOGY PTT 24.6 s 22.9 - 35.8 09/27/2012 Normal 11Interpretive Data: Heparin Therapeutic Range: 57 - 92 Seconds [facility] HEMATOLOGY PT 12.3 s 12.0 - 14.7 09/27/2012 Normal [facility] HEMATOLOGY INR 0.89 0.85 - 1.17 09/27/2012 Normal 10Interpretive Data: RECOMMENDED RANGES FOR PROTIME INR: 2.0-3.0 for most medical and surgical thromboembolic states. 2.5-3.5 for artificial heart valves and recurrent embolism. INR SHOULD BE USED ONLY FOR PATIENTS ON STABLE ANTICOAGULANT THERAPY. [facility] HEMATOLOGY MCH 24.5 pg 27.0 - 31.0 09/27/2012 LOW [facility] HEMATOLOGY RDW 14.6 % 11.5 - 14.5 09/27/2012 HI [facility] HEMATOLOGY MCHC 31.4 g/dL 32.0 - 36.0 09/27/2012 LOW [facility] HEMATOLOGY Platelet 294 K/CMM 133 - 450 09/27/2012 Normal [facility] [place] MPV 8.9 fL 7.4 - 10.4 09/27/2012 Normal [facility] HEMATOLOGY MCV 78.3 fL 81.0 - 99.0 09/27/2012 LOW [facility] HEMATOLOGY RBC 5.26 M/CMM 4.20 - 5.40 09/27/2012 Normal [facility] HEMATOLOGY WBC 10.1 K/CMM 3.7 - 10.4 09/27/2012 Normal [facility] HEMATOLOGY Lymphocytes # 2.0 K/CMM 1.0 - 5.5 09/27/2012 Normal [facility] HEMATOLOGY Monocytes # 0.5 K/CMM 0.0 - 0.8 09/27/2012 Normal [facility] HEMATOLOGY Eosinophils # 0.1 K/CMM 0.0 - 0.5 09/27/2012 Normal [facility] HEMATOLOGY Basophils # 0.1 K/CMM 0.0 - 0.2 09/27/2012 Normal [facility] HEMATOLOGY Monocytes 5.4 % 2.0 - 12.0 09/27/2012 Normal [facility] HEMATOLOGY Eosinophils 1.4 % 0.0 - 4.0 09/27/2012 Normal [facility] HEMATOLOGY Segs-Bands # 7.4 K/CMM 1.5 - 8.1 09/27/2012 Normal [facility] [place] [facility] [place] Basophils 0.5 % 0.0 - 1.0 09/27/2012 Normal [facility] [place] Lymphocytes 19.5 % 20.0 - 40.0 09/27/2012 LOW [facility] HEMATOLOGY Segs 73.2 % 45.0 - 75.0 09/27/2012 Normal [facility] Bowel acute blood loss imaging NM Bowel acute blood loss imaging NM Bleeding scan: Exam reason: Rectal bleeding. The patient was administered 27.5 mCi technetium 99m UltraTag red blood cells with imaging obtained in the anterior plane at 5 minute intervals to 60 minutes. There is normal blood pool activity noted. There is no evidence of extravasated tagged red blood cells. Accumulation of activity at the urinary bladder is noted related to free pertechnetate. IMPRESSION: 1. Negative bleeding scan. SL:12 09/27/2012 - - Read by: Basil Watson Dictated Date/time: 09/27/12 21:49 Electronically Signed by: Basil Watson MD 09/27/12 21:50 FINAL REPORT [facility] Vital Signs Vital Sign Value Date Comments Source Temperature Oral (F) 98.6 F 11/27/2014 [facility] Heart Rate 80 11/27/2014 [facility] Systolic (mm Hg) 158 11/27/2014 [facility] Diastolic (mm Hg) 80 11/27/2014 [facility] Systolic (mm Hg) 173 11/27/2014 [facility] Diastolic (mm Hg) 76 11/27/2014 [facility] Temperature Oral (F) 98.7 F 11/27/2014 [facility] Heart Rate 79 11/27/2014 [facility] Respitory Rate 20 11/27/2014 [facility] BMI Calculated 35.26 11/27/2014 [facility] Respitory Rate 18 11/27/2014 [facility] Heart Rate 84 11/27/2014 [facility] Temperature Oral (F) 99 F 11/27/2014 [facility] Height 162.56 cm 11/27/2014 [facility] Weight 93.182 11/27/2014 [facility] Systolic (mm Hg) 157 11/27/2014 [facility] Diastolic (mm Hg) 79 11/27/2014 [facility] Temperature Oral (F) 97.9 F 07/20/2014 [facility] Systolic (mm Hg) 149 07/20/2014 [facility] Diastolic (mm Hg) 71 07/20/2014 [facility] Respitory Rate 17 07/20/2014 [facility] Respitory Rate 17 07/20/2014 [facility] Systolic (mm Hg) 146 07/20/2014 [facility] Diastolic (mm Hg) 73 07/20/2014 [facility] Respitory Rate 20 07/20/2014 [facility] Systolic (mm Hg) 167 07/20/2014 [facility] Diastolic (mm Hg) 74 07/20/2014 [facility] Heart Rate 90 07/20/2014 [facility] Weight 88.182 07/20/2014 [facility] Temperature Oral (F) 98.7 F 07/20/2014 [facility] Heart Rate 105 07/20/2014 [facility] Temperature Oral (F) 98.1 F 07/17/2014 [facility] Systolic (mm Hg) 148 07/17/2014 [facility] Diastolic (mm Hg) 79 07/17/2014 [facility] Respitory Rate 16 07/17/2014 [facility] Heart Rate 84 07/17/2014 [facility] Heart Rate 86 07/17/2014 [facility] Respitory Rate 18 07/17/2014 [facility] Systolic (mm Hg) 184 07/17/2014 [facility] Diastolic (mm Hg) 76 07/17/2014 [facility] Heart Rate 82 07/17/2014 [facility] Systolic (mm Hg) 193 07/17/2014 [facility] Diastolic (mm Hg) 79 07/17/2014 [facility] Temperature Oral (F) 99.7 F 07/17/2014 [facility] Respitory Rate 18 07/17/2014 [facility] Temperature Oral (F) 98.3 F 07/17/2014 [facility] BMI Calculated 33.54 07/16/2014 [facility] Weight 88.636 07/16/2014 [facility] Height 162.56 cm 07/16/2014 [facility] Diastolic (mm Hg) 74 12/24/2013 [facility] Respitory Rate 18 12/24/2013 [facility] Systolic (mm Hg) 138 12/24/2013 [facility] Heart Rate 69 12/24/2013 [facility] Temperature Oral (F) 98.1 F 12/24/2013 [facility] Diastolic (mm Hg) 65 12/24/2013 [facility] Systolic (mm Hg) 119 12/24/2013 [facility] Respitory Rate 18 12/24/2013 [facility] Heart Rate 81 12/24/2013 [facility] Temperature Oral (F) 97.9 F 12/24/2013 [facility] Heart Rate 73 12/24/2013 [facility] Temperature Oral (F) 98.7 F 12/24/2013 [facility] Systolic (mm Hg) 125 12/24/2013 [facility] Diastolic (mm Hg) 66 12/24/2013 [facility] Respitory Rate 18 12/24/2013 [facility] Height 162.56 cm 12/23/2013 [facility] Weight 88.182 12/23/2013 [facility] BMI Calculated 33.37 12/23/2013 [facility] Weight 86.364 12/23/2013 [facility] Height 162.56 cm 12/23/2013 [facility] BMI Calculated 32.68 12/23/2013 [facility] Temperature Oral (F) 98.1 F 07/28/2013 [facility] Heart Rate 80 07/28/2013 [facility] Systolic (mm Hg) 156 07/28/2013 [facility] Respitory Rate 18 07/28/2013 [facility] Diastolic (mm Hg) 88 07/28/2013 [facility] Temperature Oral (F) 98 F 07/28/2013 [facility] Respitory Rate 18 07/28/2013 [facility] Systolic (mm Hg) 152 07/28/2013 [facility] Heart Rate 70 07/28/2013 [facility] Diastolic (mm Hg) 86 07/28/2013 [facility] Height 162.56 cm 07/27/2013 [facility] BMI Calculated 33.71 07/27/2013 [facility] Weight 89.091 07/27/2013 [facility] Temperature Oral (F) 98.3 F 07/27/2013 [facility] Heart Rate 87 07/27/2013 [facility] Respitory Rate 18 07/27/2013 [facility] Diastolic (mm Hg) 90 07/27/2013 [facility] Systolic (mm Hg) 172 07/27/2013 [facility] Systolic (mm Hg) 152 06/04/2013 [facility] Diastolic (mm Hg) 72 06/04/2013 [facility] Respitory Rate 16 06/04/2013 [facility] Heart Rate 82 06/04/2013 [facility] Temperature Oral (F) 99.5 F 06/04/2013 [facility] Weight 89.091 06/04/2013 [facility] Height 162.56 cm 06/04/2013 [facility] Systolic (mm Hg) 161 06/04/2013 [facility] Diastolic (mm Hg) 72 06/04/2013 [facility] Respitory Rate 18 06/04/2013 [facility] Temperature Oral (F) 98.6 F 06/04/2013 [facility] Heart Rate 99 06/04/2013 [facility] Respitory Rate 18 04/27/2013 [facility] Systolic (mm Hg) 138 04/27/2013 [facility] Diastolic (mm Hg) 58 04/27/2013 [facility] Height 162.56 cm 04/27/2013 [facility] Weight 85.909 04/27/2013 [facility] Systolic (mm Hg) 113 04/27/2013 [facility] Temperature Oral (F) 98.8 F 04/27/2013 [facility] Diastolic (mm Hg) 60 04/27/2013 [facility] Respitory Rate 22 04/27/2013 [facility] Heart Rate 91 04/27/2013 [facility] Weight 86.364 03/03/2013 [facility] Height 162.56 cm 03/03/2013 [facility] Diastolic (mm Hg) 85 03/03/2013 [facility] Heart Rate 90 03/03/2013 [facility] Respitory Rate 16 03/03/2013 [facility] Systolic (mm Hg) 184 03/03/2013 [facility] Temperature Oral (F) 98.6 F 03/03/2013 [facility] Temperature Oral (F) 99.8 F 10/05/2012 [facility] Heart Rate 105 10/05/2012 [facility] Respitory Rate 20 10/05/2012 [facility] Systolic (mm Hg) 116 10/05/2012 [facility] Diastolic (mm Hg) 79 10/05/2012 [facility] Temperature Oral (F) 98.3 F 10/05/2012 [facility] Respitory Rate 16 10/05/2012 [facility] Heart Rate 72 10/05/2012 [facility] Systolic (mm Hg) 144 10/05/2012 [facility] Diastolic (mm Hg) 78 10/05/2012 [facility] Respitory Rate 18 10/05/2012 [facility] Heart Rate 78 10/05/2012 [facility] Temperature Oral (F) 98.2 F 10/05/2012 [facility] Diastolic (mm Hg) 75 10/05/2012 [facility] Systolic (mm Hg) 152 10/05/2012 [facility] Height 149.86 cm 10/03/2012 [facility] Weight 86.364 10/03/2012 [facility] Weight 86.364 10/02/2012 [facility] Height 162.56 cm 10/02/2012 [facility] Temperature Oral (F) 98.3 F 09/30/2012 [facility] Respitory Rate 18 09/30/2012 [facility] Systolic (mm Hg) 146 09/30/2012 [facility] Diastolic (mm Hg) 84 09/30/2012 [facility] Heart Rate 77 09/30/2012 [facility] Systolic (mm Hg) 120 09/30/2012 [facility] Respitory Rate 18 09/30/2012 [facility] Heart Rate 67 09/30/2012 [facility] Temperature Oral (F) 98.2 F 09/30/2012 [facility] Diastolic (mm Hg) 57 09/30/2012 [facility] Systolic (mm Hg) 150 09/30/2012 [facility] Diastolic (mm Hg) 66 09/30/2012 [facility] Respitory Rate 18 09/30/2012 [facility] Temperature Oral (F) 98.7 F 09/30/2012 [facility] Heart Rate 93 09/30/2012 [facility] Weight 86.619 09/28/2012 [facility] Height 162.56 cm 09/28/2012 [facility] Weight 86.364 09/27/2012 [facility] Height 162.56 cm 09/27/2012 [facility] Encounters Location Location Details Encounter Type Encounter Number Reason For Visit Attending Provider ADM Date DC Date Status Source [facility] OU [id number] TASO MOUGOURIS 09/27/2012 09/30/2012 Active [facility] Emergency [id number] RECTAL BLEEDING ESHA BROWN 10/02/2012 10/02/2012 Active [facility] Inpatient [id number] RECTAL BLEEDING YARELIS LE JR 10/05/2012 10/05/2012 Active [facility] Emergency [id number] BROOKS NANCY 03/02/2013 03/02/2013 Active [facility] Emergency [id number] KIKO MESA 04/27/2013 04/27/2013 Active [facility] Emergency [id number] ZORAN NUÑEZ 06/04/2013 06/04/2013 Active [facility] [id number] Ronnie De Oliveira 07/27/2013 07/28/2013 [facility] OBS Observation Patient [id number] Rey Gandara 12/23/2013 12/24/2013 [facility] [id number] Kasie Luna 07/16/2014 07/17/2014 [facility] [id number] Shaggy Julio 07/20/2014 07/20/2014 [facility] [id number] Kiko Mckeonyuliyadenise 11/27/2014 11/27/2014 [facility] [place] [facility] [id number] Radames Gilbert 11/28/2015 11/29/2015 [facility] Registered Emergency Room [id number] MALOU RODRIGUEZ MD 10/30/2016 [facility] Departed Emergency Room [id number] FIONA LUNA MD 01/22/2017 01/22/2017 [facility] Departed Emergency Room [id number] BRAD NEWMAN MD 06/25/2017 06/25/2017 [facility] Procedures Procedure Code Date Perfomer Comments Source Computed tomography of brain without radiopaque contrast [id number] 06/25/2017 JORGE L [facility] CT of abdomen and pelvis without contrast [id number] 01/22/2017 ANTOINE [facility] Computed tomography of brain without radiopaque contrast [id number] 10/30/2016 [facility] Arm repair [id number] 07/21/2012 [facility] Arm repair [id number] 07/21/2012 [facility] Arm repair [id number] 07/21/2012 [facility] Abdominal hysterectomy [id number] [facility] Breast lumpectomy [id number] [facility] Cholecystectomy [id number] [facility] Abdominal hysterectomy [id number] [facility] [place] Breast lumpectomy [id number] [facility] [place] Cholecystectomy [id number] [facility] [place] Abdominal hysterectomy [id number] [facility] Breast lumpectomy [id number] [facility] Cholecystectomy [id number] [facility]
--- OUTSIDE RECORDS SUMMARY | 2018-07-03 10:20 | XMS REPORT | Summary of Care ---
Author Organization Unknown Address Unknown Phone Unavailable Encounter [facility](DONNY) [id number] Date(s): 07/27/13 - 07/28/13 [facility] [address] [place], [place] [id number] [place] [address] Discharge Diagnosis: right knee pain Discharge Disposition: Home Physician Attending: Ronnie De Oliveira Reason for Visit RT LEG PAIN Vital Signs 1 2 3 Most recent to oldest [Reference Range]: 162.56 cm (07/27/13 4:22 PM) Height 98.1 DegF (07/28/13 3:20 AM) 98 DegF (07/27/13 11:34 PM) 98.3 DegF (07/27/13 4:22 PM) Temperature Oral [96.4-99.1 DegF] 156 mmHg *HI* (07/28/13 3:20 AM) 152 mmHg *HI* (07/27/13 11:34 PM) 172 mmHg *HI* (07/27/13 4:22 PM) Systolic Blood Pressure [90-140 mmHg] 88 mmHg (07/28/13 3:20 AM) 86 mmHg (07/27/13 11:34 PM) 90 mmHg (07/27/13 4:22 PM) Diastolic Blood Pressure [60-90 mmHg] 18 BRMIN (07/28/13 3:20 AM) 18 BRMIN (07/27/13 11:34 PM) 18 BRMIN (07/27/13 4:22 PM) Respiratory Rate [14-20 BRMIN] 80 bpm (07/28/13 3:20 AM) 70 bpm (07/27/13 11:34 PM) 87 bpm (07/27/13 4:22 PM) Peripheral Pulse Rate [60-100 bpm] 89.091 kg (07/27/13 4:22 PM) Weight 33.71 m2 (07/27/13 4:22 PM) Body Mass Index Problem List Condition Effective Dates Status Health Status Informant Asthma(Confirmed) Resolved Asthma(Confirmed) Active Breast Active cancer(Confirmed) Breast Resolved cancer(Confirmed) Breast Active lumpectomy(Confirmed )1 Chest Active pain(Confirmed) Diabetes Resolved mellitus(Confirmed) Diverticulitis(Confi Resolved rmed) DM - Diabetes Active mellitus(Confirmed) Gastrointestinal Active bleeding(Confirmed) HTN - Active Hypertension(Confirm ed) Hypertension(Confirm Resolved ed) Pain in left < 06/14/11 Resolved arm(Confirmed) PTSD - Active Post-traumatic stress disorder(Confirmed)2 1left 2Pt stated within 1 week 4 members of her family all at different times. Allergies, Adverse Reactions, Alerts Substance Reaction Severity Status Ambien Active codeine Percodan Active flu vaccines Active HYDROcodone Active iodinated radiocontrast Active dyes Lortab Active Percodan1 HALLUCINATIONS Active 1Not a true allergy, only hallucinations as per Doreen in ER Medications ketorolac 30 mg, Route: IVP, Drug form: INJ, ONCE, Dosing Weight 89.091, kg, Priority: STA T, Start date: 07/28/13 2:31:00, Stop date: 07/28/13 2:31:00 Start Date: 07/28/13 Stop Date: 07/28/13 Status: Completed morphine Sulfate 4 mg, 2 mL, Route: IM, Drug form: INJ, ONCE, Dosing Weight 89.091, kg, Priority: STAT, Start date: 07/27/13 23:10:00, Stop date: 07/27/13 23:10:00 Notes: (Same as:MORPhine Sulfate) Start Date: 07/27/13 Stop Date: 07/27/13 Status: Discontinued morphine Sulfate 4 mg, Route: IVP, Drug form: INJ, ONCE, Dosing Weight 89.091, kg, Priority: STAT , Start date: 07/27/13 23:32:00, Stop date: 07/27/13 23:32:00 Start Date: 07/27/13 Stop Date: 07/27/13 Status: Completed Naprosyn 500 mg oral tablet 500 mg=1 tab, PO, BID, for pain, # 20 tab, 0 Refill(s) Start Date: 07/28/13 Status: Ordered Zofran 4 mg, Route: IVP, Drug form: INJ, ONCE, Dosing Weight 89.091, kg, Priority: STAT , Start date: 07/27/13 23:32:00, Stop date: 07/27/13 23:32:00 Start Date: 07/27/13 Stop Date: 07/27/13 Status: Completed Zofran ODT 4 mg, 1 tab, Route: PO, Drug form: TABDIS, ONCE, Dosing Weight 89.091, kg, Prior ity: STAT, Start date: 07/27/13 23:10:00, Stop date: 07/27/13 23:10:00 Notes: (Same as: Zofran ODT) Start Date: 07/27/13 Stop Date: 07/27/13 Status: Discontinued Medications Administered During Your Visit No data available for this section Immunizations Vaccine Date Refusal Reason tetanus toxoid 08/10/11 Social History Social History Type Response Smoking Status Never smoker, Exposure to Tobacco Smoke None, Cigarette Smoking Last 365 Days No, Reg Smoking Cessation Counseling No
--- OUTSIDE RECORDS SUMMARY | 2018-07-03 10:20 | XMS REPORT | CCD ---
Author Author Auto Generated Organization [facility] Address Unknown Phone Unavailable Care Team Providers Care Postdoctoral Research Fellow Name Role Phone Marv Thomas CP Allergies, Adverse Reactions, Alerts Substance Reaction Status Ambien Active codeine Percodan Active flu vaccines Active HYDROcodone Active iodinated radiocontrast dyes Active Lortab Active Percodan1 HALLUCINATIONS Active 1Not a true allergy, only hallucinations as per Doreen in ER Problem List Condition Effective Dates Status Asthma Resolved Asthma Active Breast cancer Active Breast cancer Resolved Breast lumpectomy1 Active Chest pain Active Diabetes mellitus Resolved Diverticulitis Resolved DM - Diabetes mellitus Active Gastrointestinal bleeding Active HTN - Hypertension Active Hypertension Resolved Pain in left arm < 06/14/2011 Resolved PTSD - Post-traumatic stress disorder2 Active 1left 2Pt stated within 1 week 4 members of her family all at different times. Medications Medication Instructions Start Date End Date Status Ultram 50 mg oral 50 mg, Route: PO, Drug form: TAB, 06/04/2013 06/04/2013 Completed tablet ONCE, Dosing Weight 89.091, kg, Priority: STAT, Start date: 06/04/13 12:48:00, Stop date: 06/04/13 12:48:00 Ultram 50 mg oral 1 - 2 tabs, PO, Q4-6H, as needed 06/04/2013 Ordered tablet for pain, # 30 tab, 0 Refill(s) tetanus toxoid 0.5 ml, Route: IM, Drug Form: INJ, 08/10/2011 08/10/2011 Completed ONCE, STAT, Start date: 08/10/11 19:48:00, Stop date: 08/10/11 19:48:00Keep refrigerated. Immunizations Vaccine Date Status tetanus toxoid 08/10/2011 Auth (Verified) Vital Signs Most recent to oldest [Reference Range]: 1 2 Height 162.56 cm (06/04/2013 08:20:00) Temperature Oral [96.4-99.1 DegF] 99.5 DegF *HI* (06/04/2013:54:00) 98.6 DegF (06/04/2013:20:00) Systolic Blood Pressure [90-140 mmHg] 152 mmHg *HI* (06/04/2013:54:00) 161 mmHg *HI* (06/04/2013 08:20:00) Diastolic Blood Pressure [60-90 mmHg] 72 mmHg (06/04/2013:54:00) 72 mmHg (06/04/2013:20:00) Respiratory Rate [14-20 BRMIN] 16 BRMIN (06/04/201354:00) 18 BRMIN (06/04/2013:20:00) Peripheral Pulse Rate [60-100 bpm] 82 bpm (06/04/201354:00) 99 bpm (06/04/2013 08:20:00) Weight 89.091 kg (06/04/2013 08:20:00) Results CHEMISTRY Most recent to oldest [Reference Range]: 1 Sodium Lvl [135-145 mEq/L] 140 mEq/L (06/04/2013 09:00:00) Potassium Lvl [3.5-5.1 mEq/L] 3.7 mEq/L (06/04/2013 09:00:00) Chloride Lvl [95-109 mEq/L] 104 mEq/L (06/04/2013 09:00:00) CO2 [24-32 mEq/L] 26 mEq/L (06/04/2013 09:00:00) AGAP [10.0-20.0 mEq/L] 13.7 mEq/L (06/04/2013 09:00:00) Creatinine Lvl [0.5-1.4 mg/dL] 1.2 mg/dL (06/04/2013 09:00:00) eGFR 56 mL/min/1.73m2 1 *NA* (06/04/2013 09:00:00) BUN [7-22 mg/dL] 19 mg/dL (06/04/2013 09:00:00) B/C Ratio [6-25] 16 (06/04/2013 09:00:00) Glucose Lvl [70-99 mg/dL] 279 mg/dL 2 *HI* (06/04/2013 09:00:00) Total Protein [6.4-8.4 g/dL] 7.6 g/dL (06/04/2013:00:00) Albumin Lvl [3.5-5.0 g/dL] 3.7 g/dL (06/04/2013:00:00) Globulin [2.0-4.0 g/dL] 3.9 g/dL (06/04/2013:00:00) A/G Ratio [0.7-1.6] 0.9 (06/04/2013:00:00) Calcium Lvl [8.5-10.5 mg/dL] 9.4 mg/dL (06/04/2013:00:00) ALT [0-65 unit/L] 20 unit/L (06/04/2013:00:00) AST [0-37 unit/L] 10 unit/L (06/04/2013:00:00) Alk Phos [39-136 unit/L] 111 unit/L (06/04/2013:00:00) Bili Total [0.2-1.3 mg/dL] 0.5 mg/dL (06/04/2013:00:00) 1Result Comment: The eGFR is calculated using [...] from the National Kidney Disease Education Program ( NKDEP) which additionally recommends that when the eGFR is used in patients with extremes of body mass index for purposes of drug dosing, the eGFR should be mul tiplied by the estimated BMI. 2Interpretive Data: Adult reference range values reflect the clinical guidelines of the [place] [employer]. HEMATOLOGY Most recent to oldest [Reference Range]: 1 WBC [3.7-10.4 K/CMM] 7.4 K/CMM (06/04/2013 09:00:00) RBC [4.20-5.40 M/CMM] 4.89 M/CMM (06/04/2013 09:00:00) Hgb [12.0-16.0 g/dL] 11.7 g/dL *LOW* (06/04/2013 09:00:00) Hct [36.0-48.0 %] 37.1 % (06/04/2013 09:00:00) MCV [81.0-99.0 fL] 75.9 fL *LOW* (06/04/2013 09:00:00) MCH [27.0-31.0 pg] 24.0 pg *LOW* (06/04/2013 09:00:00) MCHC [32.0-36.0 g/dL] 31.6 g/dL *LOW* (06/04/2013 09:00:00) RDW [11.5-14.5 %] 15.1 % *HI* (06/04/2013 09:00:00) Platelet [133-450 K/CMM] 239 K/CMM (06/04/2013 09:00:00) MPV [7.4-10.4 fL] 10.0 fL (06/04/2013 09:00:00) Segs [45.0-75.0 %] 79.7 % *HI* (06/04/2013 09:00:00) Lymphocytes [20.0-40.0 %] 13.5 % *LOW* (06/04/2013 09:00:00) Monocytes [2.0-12.0 %] 3.8 % (06/04/2013 09:00:00) Eosinophils [0.0-4.0 %] 2.8 % (06/04/2013 09:00:00) Basophils [0.0-1.0 %] 0.2 % (06/04/2013 09:00:00) Segs-Bands # [1.5-8.1 K/CMM] 5.9 K/CMM (06/04/2013 09:00:00) Lymphocytes # [1.0-5.5 K/CMM] 1.0 K/CMM (06/04/2013 09:00:00) Monocytes # [0.0-0.8 K/CMM] 0.3 K/CMM (06/04/2013 09:00:00) Eosinophils # [0.0-0.5 K/CMM] 0.2 K/CMM (06/04/2013 09:00:00) Basophils # [0.0-0.2 K/CMM] 0.0 K/CMM (06/04/2013 09:00:00) D-Dimer 0.37 ug/mL FEU 3 *NA* (06/04/2013 09:00:00) 3Interpretive Data: In DIC, quantitative D-Dimer is generally greater than 0.66 ug/mL FEU. Values of quantitative D-Dimer less than 0.40 ug/mL FEU have been reported to be associated with a low probability of deep vein thrombosis/pulmonary embolism. This test alone should not be used to rule out DVT/PE. IMMUNOLOGY Most recent to oldest [Reference Range]: 1 CDC HIV 4th GEN [Negative] Negative (06/04/2013 09:00:00)
--- OUTSIDE RECORDS SUMMARY | 2018-07-03 10:20 | XMS REPORT | CCD ---
Author Author Auto Generated Organization [facility] Address Unknown Phone Unavailable Care Team Providers Care Day Care Center Director Name Role Phone Vikas Grullon CP Allergies, Adverse Reactions, Alerts Substance Reaction [...] Medication Instructions Start Date End Date Status tetanus toxoid 0.5 ml, Route: IM, Drug Form: INJ, 08/10/2011 08/10/2011 Completed ONCE, STAT, Start date: 08/10/11 19:48:00, Stop date: 08/10/11 19:48:00 Immunizations Vaccine Date Status tetanus toxoid 08/10/2011 Auth (Verified) Vital Signs Most recent to oldest [Reference Range]: 1 Height 162.56 cm (10/02/2012 08:16:00) Weight 86.364 kg (10/02/2012 08:16:00) Results URINALYSIS Most recent to oldest [Reference Range]: 1 UA Turbidity [Clear] Clear (10/02/2012 08:45:00) UA Color Ltyellow *NA* (10/02/2012 08:45:00) UA pH [5.0-8.0] 5.0 (10/02/2012 08:45:00) UA Spec Grav [<=1.030] 1.008 (10/02/2012 08:45:00) UA Glucose [Negative mg/dL] Negative mg/dL *NA* (10/02/2012 08:45:00) UA Blood [Negative] Negative (10/02/2012 08:45:00) UA Ketones [Negative mg/dL] Negative mg/dL *NA* (10/02/2012 08:45:00) UA Protein [Negative mg/dL] Negative mg/dL (10/02/2012 08:45:00) UA Urobilinogen [0.1-1.0 mg/dL] <=1.0 mg/dL *NA* (10/02/2012 08:45:00) UA Bili [Negative] Negative *NA* (10/02/2012 08:45:00) UA Leuk Est [Negative] Negative (10/02/2012 08:45:00) UA Nitrite [Negative] Negative (10/02/2012 08:45:00) UA WBC [0-5 /HPF] 1 /HPF (10/02/2012 08:45:00) UA RBC [0-2 /HPF] <1 /HPF (10/02/2012 08:45:00) UA Sq Epi [Few /LPF] Occasional /LPF *NA* (10/02/2012 08:45:00) UA Mucus [None Seen /LPF] Few /LPF *NA* (10/02/2012 08:45:00) STOOL TESTS Most recent to oldest [Reference Range]: 1 Occult Bld Stl [Negative] Positive *ABN* (10/02/2012 09:28:00) BLOOD BANK RESULTS Most recent to oldest [Reference Range]: 1 ABO/Rh O POS *Unknown* (10/02/2012 11:00:00) Antibody Scrn Negative (10/02/2012 11:00:00) CHEMISTRY Most recent to oldest [Reference Range]: 1 Sodium Lvl [135-145 mEq/L] 143 mEq/L (10/02/2012 08:45:00) Potassium Lvl [3.5-5.1 mEq/L] 4.7 mEq/L (10/02/2012 08:45:00) Chloride Lvl [95-109 mEq/L] 108 mEq/L (10/02/2012 08:45:00) CO2 [24-32 mEq/L] 27 mEq/L (10/02/2012 08:45:00) AGAP [10.0-20.0 mEq/L] 12.7 mEq/L (10/02/2012 08:45:00) Creatinine Lvl [0.5-1.4 mg/dL] 0.8 mg/dL (10/02/2012 08:45:00) eGFR 92 mL/min/1.73m2 1 *NA* (10/02/2012 08:45:00) BUN [7-22 mg/dL] 16 mg/dL (10/02/2012 08:45:00) B/C Ratio [6-25] 20 (10/02/2012 08:45:00) Glucose Lvl [70-99 mg/dL] 158 mg/dL 2 *HI* (10/02/2012 08:45:00) Total Protein [6.4-8.4 g/dL] 7.7 g/dL (10/02/2012 08:45:00) Albumin Lvl [3.5-5.0 g/dL] 3.8 g/dL (10/02/2012 08:45:00) Globulin [2.0-4.0 g/dL] 3.9 g/dL (10/02/2012 08:45:00) A/G Ratio [0.7-1.6] 1.0 (10/02/2012 08:45:00) Calcium Lvl [8.5-10.5 mg/dL] 9.1 mg/dL (10/02/2012 08:45:00) ALT [0-65 unit/L] 26 unit/L (10/02/2012 08:45:00) AST [0-37 unit/L] 22 unit/L (10/02/2012 08:45:00) Alk Phos [39-136 unit/L] 115 unit/L (10/02/2012 08:45:00) Bili Total [0.2-1.3 mg/dL] 0.6 mg/dL (10/02/2012 08:45:00) Amylase Lvl [25-115 unit/L] 72 unit/L (10/02/2012 08:45:00) Lipase Lvl [73-393 unit/L] 191 unit/L (10/02/2012 08:45:00) Total CK [12-191 unit/L] 188 unit/L (10/02/2012:45:00) CK MB [0.5-3.6 ng/mL] 0.7 ng/mL (10/02/2012:45:00) CK MB Index [0.0-2.5] 0.4 (10/02/2012:45:00) Troponin-I [0.00-0.40 ng/mL] <0.02 ng/mL (10/02/2012:45:00) 1Result Comment: The eGFR is calculated using [...] values reflect the clinical guidelines of the [place] [employer]. HEMATOLOGY Most recent to oldest [Reference Range]: 1 WBC [3.7-10.4 K/CMM] 6.2 K/CMM (10/02/2012:45:00) RBC [4.20-5.40 M/CMM] 4.85 M/CMM (10/02/2012:45:00) Hgb [12.0-16.0 g/dL] 12.1 g/dL (10/02/2012:45:00) Hct [36.0-48.0 %] 37.5 % (10/02/2012:45:00) MCV [81.0-99.0 fL] 77.4 fL *LOW* (10/02/2012:45:00) MCH [27.0-31.0 pg] 25.0 pg *LOW* (10/02/2012 08:45:00) MCHC [32.0-36.0 g/dL] 32.3 g/dL (10/02/2012 08:45:00) RDW [11.5-14.5 %] 14.8 % *HI* (10/02/2012 08:45:00) Platelet [133-450 K/CMM] 215 K/CMM (10/02/2012 08:45:00) MPV [7.4-10.4 fL] 9.0 fL (10/02/2012 08:45:00) Segs [45.0-75.0 %] 69.7 % (10/02/2012 08:45:00) Lymphocytes [20.0-40.0 %] 22.1 % (10/02/2012 08:45:00) Monocytes [2.0-12.0 %] 5.2 % (10/02/2012 08:45:00) Eosinophils [0.0-4.0 %] 2.9 % (10/02/2012 08:45:00) Basophils [0.0-1.0 %] 0.1 % (10/02/2012 08:45:00) Segs-Bands # [1.5-8.1 K/CMM] 4.3 K/CMM (10/02/2012 08:45:00) Lymphocytes # [1.0-5.5 K/CMM] 1.4 K/CMM (10/02/2012 08:45:00) Monocytes # [0.0-0.8 K/CMM] 0.3 K/CMM (10/02/2012 08:45:00) Eosinophils # [0.0-0.5 K/CMM] 0.2 K/CMM (10/02/2012 08:45:00) Basophils # [0.0-0.2 K/CMM] 0.0 K/CMM (10/02/2012 08:45:00)
--- OUTSIDE RECORDS SUMMARY | 2018-07-03 10:20 | XMS REPORT | CCD ---
Author Author Auto Generated Organization [facility] Address Unknown Phone Unavailable Care Team Providers Care Light Rail Signal Technician Name Role Phone Kiko Castillo CP Allergies, Adverse Reactions, Alerts Substance Reaction [...] Medication Instructions Start Date End Date Status aspirin 324 mg, Route: PO, ONCE, Dosing 04/27/2013 04/27/2013 Completed Weight 85.909, kg, Priority: STAT, Start date: 04/27/13 12:48:00, Stop date: 04/27/13 12:48:00 Saline Flush 0.9% 5 mL, Route: IVP, Drug Form: INJ, 04/27/2013 04/27/2013 Discontinued Dosing Weight 85.909, kg, Q8H, PRN Line Flush, Start date: 04/27/13 12:48:00, Duration: 30 day, Stop date: 05/27/13 12:47:00, Administer at least once every 8 hours Administer at least once every 8 hoursSame as: BD Posiflush Sterile morphine Sulfate 2 mg, Route: IM, Drug form: INJ, 04/27/2013 04/27/2013 Completed ONCE, Dosing Weight 85.909, kg, Priority: STAT, Start date: 04/27/13 13:27:00, Stop date: 04/27/13 13:27:00 Prilosec OTC 20 mg 20 mg=1 tab, PO, BID, # 60 tab, 0 04/27/2013 Ordered oral enteric coated Refill(s) tablet GI cocktail 30 mL, Route: PO, Dosing Weight 04/27/2013 04/27/2013 Completed 85.909, kg, ONCE, STAT, Start date: 04/27/13 16:07:00, Stop date: 04/27/13 16:07:00 tetanus toxoid 0.5 ml, Route: IM, Drug Form: INJ, 08/10/2011 08/10/2011 Completed ONCE, STAT, Start date: 08/10/11 19:48:00, Stop date: 08/10/11 19:48:00Keep refrigerated. Immunizations Vaccine Date Status tetanus toxoid 08/10/2011 Auth (Verified) Vital Signs Most recent to oldest [Reference Range]: 1 2 Height 162.56 cm (04/27/2013 12:36:00) Temperature Oral [96.4-99.1 DegF] 98.8 DegF (04/27/2013 12:36:00) Systolic Blood Pressure [90-140 mmHg] 138 mmHg (04/27/2013 15:13:00) 113 mmHg (04/27/2013 12:36:00) Diastolic Blood Pressure [60-90 mmHg] 58 mmHg *LOW* (04/27/2013 15:13:00) 60 mmHg (04/27/2013 12:36:00) Respiratory Rate [14-20 BRMIN] 18 BRMIN (04/27/2013 15:13:00) 22 BRMIN *HI* (04/27/2013 12:36:00) Peripheral Pulse Rate [60-100 bpm] 91 bpm (04/27/2013 12:36:00) Weight 85.909 kg (04/27/2013 12:36:00) Results URINALYSIS Most recent to oldest [Reference Range]: 1 UA Turbidity [Clear] Clear (04/27/2013 13:20:00) UA Color Colorless *NA* (04/27/2013 13:20:00) UA pH [5.0-8.0] 6.0 (04/27/2013 13:20:00) UA Spec Grav [<=1.030] 1.002 (04/27/2013 13:20:00) UA Glucose [Negative mg/dL] Negative mg/dL *NA* (04/27/2013 13:20:00) UA Blood [Negative] Negative (04/27/2013 13:20:00) UA Ketones [Negative mg/dL] Negative mg/dL *NA* (04/27/2013 13:20:00) UA Protein [Negative mg/dL] Negative mg/dL (04/27/2013 13:20:00) UA Urobilinogen [0.1-1.0 mg/dL] <=1.0 mg/dL *NA* (04/27/2013 13:20:00) UA Bili [Negative] Negative *NA* (04/27/2013 13:20:00) UA Leuk Est [Negative] Trace *ABN* (04/27/2013:20:00) UA Nitrite [Negative] Negative (04/27/2013 13:20:00) UA WBC [0-5 /HPF] 1 /HPF (04/27/2013 13:20:00) UA RBC [0-2 /HPF] 2 /HPF (04/27/2013 13:20:00) UA Bacteria [None Seen /HPF] Occasional /HPF *NA* (04/27/2013 13:20:00) UA Sq Epi [Few /LPF] Occasional /LPF *NA* (04/27/2013 13:20:00) UA Renal Epi [<=0 /LPF] 3 /LPF *HI* (04/27/2013 13:20:00) CHEMISTRY Most recent to oldest [Reference Range]: 1 Sodium Lvl [135-145 mEq/L] 138 mEq/L (04/27/2013:20:00) Potassium Lvl [3.5-5.1 mEq/L] 3.3 mEq/L *LOW* (04/27/2013:20:00) Chloride Lvl [95-109 mEq/L] 102 mEq/L (04/27/2013:20:00) CO2 [24-32 mEq/L] 28 mEq/L (04/27/2013 13:20:00) AGAP [10.0-20.0 mEq/L] 11.3 mEq/L (04/27/2013 13:20:00) Creatinine Lvl [0.5-1.4 mg/dL] 1.1 mg/dL (04/27/2013:20:00) eGFR 63 mL/min/1.73m2 1 *NA* (04/27/2013:20:00) BUN [7-22 mg/dL] 13 mg/dL (04/27/2013:20:00) B/C Ratio [6-25] 12 (04/27/2013:20:00) Glucose Lvl [70-99 mg/dL] 160 mg/dL 2 *HI* (04/27/2013:20:00) Total Protein [6.4-8.4 g/dL] 8.0 g/dL (04/27/2013:20:00) Albumin Lvl [3.5-5.0 g/dL] 4.0 g/dL (04/27/2013:20:00) Globulin [2.0-4.0 g/dL] 4.0 g/dL (04/27/2013:20:00) A/G Ratio [0.7-1.6] 1.0 (04/27/2013:20:00) Calcium Lvl [8.5-10.5 mg/dL] 9.5 mg/dL (04/27/2013::00) Phosphorus [2.5-4.5 mg/dL] 2.9 mg/dL (04/27/2013:20:00) Magnesium Lvl [1.8-2.4 mg/dL] 1.8 mg/dL (04/27/2013:20:00) ALT [0-65 unit/L] 27 unit/L (04/27/2013:20:00) AST [0-37 unit/L] 17 unit/L (04/27/2013:20:00) Alk Phos [39-136 unit/L] 120 unit/L (04/27/2013:20:00) Bili Total [0.2-1.3 mg/dL] 0.5 mg/dL (04/27/2013:20:00) Total CK [12-191 unit/L] 173 unit/L (04/27/2013:20:00) CK MB [0.5-3.6 ng/mL] 0.6 ng/mL (04/27/2013:20:) CK MB Index [0.0-2.5] 0.3 (04/27/2013) Troponin-I [0.00-0.40 ng/mL] <0.02 ng/mL (04/27/2013:20:00) BNP [<=100 pg/mL] <2 pg/mL 3 (04/27/2013::) 1Result Comment: The eGFR is calculated using [...] values reflect the clinical guidelines of the [place] [employer]. 3Interpretive Data: Elevated results are in line with increasing severity of congestive heart failure. Minor elevations between 100 and 300 may be seen with Myocardial Ischemia, Sodium retaining drugs, and compensated/treated heart failure. HEMATOLOGY Most recent to oldest [Reference Range]: 1 WBC [3.7-10.4 K/CMM] 8.0 K/CMM (04/27/2013::) RBC [4.20-5.40 M/CMM] 4.94 M/CMM (04/27/2013::) Hgb [12.0-16.0 g/dL] 12.0 g/dL (04/27/2013) Hct [36.0-48.0 %] 37.6 % (04/27/2013::) MCV [81.0-99.0 fL] 76.1 fL *LOW* (04/27/2013) MCH [27.0-31.0 pg] 24.2 pg *LOW* (04/27/2013) MCHC [32.0-36.0 g/dL] 31.8 g/dL *LOW* (04/27/2013) RDW [11.5-14.5 %] 14.5 % (04/27/2013) Platelet [133-450 K/CMM] 297 K/CMM (04/27/2013) MPV [7.4-10.4 fL] 8.8 fL (04/27/2013) Segs [45.0-75.0 %] 72.1 % (04/27/2013) Lymphocytes [20.0-40.0 %] 20.2 % (04/27/2013) Monocytes [2.0-12.0 %] 5.4 % (04/27/2013) Eosinophils [0.0-4.0 %] 1.5 % (04/27/2013) Basophils [0.0-1.0 %] 0.8 % (04/27/2013) Segs-Bands # [1.5-8.1 K/CMM] 5.7 K/CMM (04/27/2013) Lymphocytes # [1.0-5.5 K/CMM] 1.6 K/CMM (04/27/2013) Monocytes # [0.0-0.8 K/CMM] 0.4 K/CMM (04/27/2013) Eosinophils # [0.0-0.5 K/CMM] 0.1 K/CMM (04/27/2013) Basophils # [0.0-0.2 K/CMM] 0.1 K/CMM (04/27/2013) PT [12.0-14.7 seconds] 12.1 seconds (04/27/2013) INR [0.85-1.17] 0.90 4 (04/27/2013 13:20:00) D-Dimer 0.35 ug/mL FEU 5 *NA* (04/27/2013 13:20:00) PTT [22.9-35.8 seconds] 26.8 seconds 6 (04/27/2013 13:20:00) 4Interpretive Data: RECOMMENDED RANGES FOR PROTIME INR: 2.0-3.0 for most medical and surgical thromboembolic states. 2.5-3.5 for artificial heart valves and recurrent embolism. INR SHOULD BE USED ONLY FOR PATIENTS ON STABLE ANTICOAGULANT THERAPY. 5Interpretive Data: In DIC, quantitative D-Dimer is generally greater than 0.66 ug/mL FEU. Values of quantitative D-Dimer less than 0.40 ug/mL FEU have been reported to be associated with a low probability of deep vein thrombosis/pulmonary embolism. This test alone should not be used to rule out DVT/PE. 6Interpretive Data: Heparin Therapeutic Range: 57 - 92 Seconds
--- OUTSIDE RECORDS SUMMARY | 2018-07-03 10:20 | XMS REPORT | CCD ---
Author Author Auto Generated Organization [facility] Address Unknown Phone Unavailable Care Team Providers Care Federal Agent Name Role Phone Jayy Torres CP Allergies, Adverse Reactions, Alerts Substance Reaction [...] Medication Instructions Start Date End Date Status citalopram 20 mg 20 mg, 1 tab, PO, Daily, 1 tab, 09/30/2012 Ordered oral tablet Substitution Allowed, TAB nitroglycerin 0.4 mg 0.4 mg, 1 tab, Route: SL, Drug 09/28/2012 09/30/2012 Discontinued sublingual tablet form: TAB, Q5Min, PRN Chest Pain, Start date: 09/28/12 5:48:00, Duration: 30 day, Stop date: 10/28/12 5:47:00 atropine 0.5 mg, 5 mL, Route: IVP, Drug 09/28/2012 09/30/2012 Discontinued form: INJ, PRN, PRN Bradycardia, Start date: 09/28/12 5:48:00, Duration: 30 day, Stop date: 10/28/12 5:47:00 NovoLog FlexPen 4 unit, 0.04 mL, Route: SUB-Q, Drug 09/28/2012 09/30/2012 Discontinued form: SOLN, Bedtime, PRN Blood Glucose Results, Start date: 09/28/12 13:41:00, Duration: 30 day, Stop date: 10/28/12 13:40:00 NovoLog FlexPen 3 unit, 0.03 mL, Route: SUB-Q, Drug 09/28/2012 09/30/2012 Discontinued form: SOLN, Bedtime, PRN Blood Glucose Results, Start date: 09/28/12 13:41:00, Duration: 30 day, Stop date: 10/28/12 13:40:00 NovoLog FlexPen 2 unit, 0.02 mL, Route: SUB-Q, Drug 09/28/2012 09/30/2012 Discontinued form: SOLN, Bedtime, PRN Blood Glucose Results, Start date: 09/28/12 13:41:00, Duration: 30 day, Stop date: 10/28/12 13:40:00 NovoLog FlexPen 1 unit, 0.01 mL, Route: SUB-Q, Drug 09/28/2012 09/30/2012 Discontinued form: SOLN, Bedtime, PRN Blood Glucose Results, Start date: 09/28/12 13:41:00, Duration: 30 day, Stop date: 10/28/12 13:40:00 GoLYTELY Route: PO, Drug Form: PDR/REC, 09/28/2012 09/28/2012 Completed Dosing Weight 86.619, kg, ONCE, Start date: 09/28/12 13:03:00, Duration: 1 doses or times, Stop date: 09/28/12 13:03:00, Substitute Allowed: Always Dextrose 50% in 50 mL, Route: IVP, Start date: 09/28/2012 09/30/2012 Discontinued Water IV 09/28/12 13:40:00, Duration: 30 day, Stop date: 10/28/12 13:39:00, PRN Blood Glucose Results glucagon 1 mg, Route: IM, Drug form: 09/28/2012 09/30/2012 Discontinued PDR/INJ, PRN, PRN Blood Glucose Results, Start date: 09/28/12 13:39:00, Duration: 30 day, Stop date: 10/28/12 13:38:00 NovoLog FlexPen 8 unit, 0.08 mL, Route: SUB-Q, Drug 09/28/2012 09/30/2012 Discontinued form: SOLN, Sliding Scale, PRN Blood Glucose Results, Start date: 09/28/12 13:39:00, Duration: 30 day, Stop date: 10/28/12 13:38:00 NovoLog FlexPen 12 unit, 0.12 mL, Route: SUB-Q, 09/28/2012 09/30/2012 Discontinued Drug form: SOLN, Sliding Scale, PRN Blood Glucose Results, Start date: 09/28/12 13:39:00, Duration: 30 day, Stop date: 10/28/12 13:38:00 NovoLog FlexPen 10 unit, 0.1 mL, Route: SUB-Q, Drug 09/28/2012 09/30/2012 Discontinued form: SOLN, Sliding Scale, PRN Blood Glucose Results, Start date: 09/28/12 13:39:00, Duration: 30 day, Stop date: 10/28/12 13:38:00 NovoLog FlexPen 4 unit, 0.04 mL, Route: SUB-Q, Drug 09/28/2012 09/30/2012 Discontinued form: SOLN, Sliding Scale, PRN Blood Glucose Results, Start date: 09/28/12 13:39:00, Duration: 30 day, Stop date: 10/28/12 13:38:00 NovoLog FlexPen 6 unit, 0.06 mL, Route: SUB-Q, Drug 09/28/2012 09/30/2012 Discontinued form: SOLN, Sliding Scale, PRN Blood Glucose Results, Start date: 09/28/12 13:39:00, Duration: 30 day, Stop date: 10/28/12 13:38:00 NovoLog FlexPen 2 unit, 0.02 mL, Route: SUB-Q, Drug 09/28/2012 09/30/2012 Discontinued form: SOLN, Sliding Scale, PRN Blood Glucose Results, Start date: 09/28/12 13:38:00, Duration: 30 day, Stop date: 10/28/12 13:37:00 Sodium Chloride 0.9% 1,000 mL, Rate: 25 ml/hr, Infuse 09/29/2012 09/29/2012 Discontinued IV 1,000 mL over: 40 hr, Route: IV, Dosing Weight 86.619 kg, Total Volume: 1,000, Start date: 09/29/12 14:48:00, Duration: 2 day, Stop date: 10/01/12 14:47:00 Protonix 40 mg, 1 tab, Route: PO, Drug form: 09/28/2012 09/30/2012 Discontinued ECTAB, Before Dinner, Dosing Weight 86.619, kg, Start date: 09/28/12 16:30:00, Stop date: 10/27/12 16:30:00 Benicar 20 mg, 1 tab, Route: PO, Drug form: 09/28/2012 09/30/2012 Discontinued TAB, Daily, Start date: 09/28/12 13:30:00, Duration: 30 day, Stop date: 10/28/12 9:00:00 normal saline 0.9% 1,000 mL, Rate: 100 ml/hr, Infuse 09/28/2012 09/30/2012 Discontinued IV 1,000 mL over: 10 hr, Route: IV, Dosing Weight 86.619 kg, Total Volume: 1,000, Start date: 09/28/12 12:54:00, Duration: 30 day, Stop date: 10/28/12 12:53:00 Norvasc 5 mg, 1 tab, Route: PO, Drug form: 09/28/2012 09/30/2012 Discontinued TAB, Daily, Start date: 09/28/12 13:30:00, Duration: 30 day, Stop date: 10/28/12 9:00:00 Levemir FlexPen 100 29 unit, SUB-Q, Bedtime, 3 ml, 09/27/2012 Ordered units/mL Substitution Allowed, SOLN subcutaneous solution Sodium Chloride 0.9% 250 mL, Rate: Histology Assistant for use with 09/27/2012 09/27/2012 Discontinued (titrate) 250 mL blood product administration., Dosing Weight 86.364, kg, Route: IV, Total Volume: 250, Priority: Routine, Duration: 30 day, Stop date: 10/27/12 16:13:00, Replace Every: 24 hr pantoprazole 40 mg, Route: IVP, ONCE, Dosing 09/27/2012 09/27/2012 Completed Weight 86.364, kg, For IV push reconstitute with 10 ml 0.9% sodium chloride and push over at least 3 minutes, Priority: STAT, Start date: 09/27/12 16:13:00, Stop date: 09/27/12 16:13:00 Saline Flush 0.9% 5 mL, Route: IVP, Drug Form: INJ, 09/27/2012 09/27/2012 Discontinued Dosing Weight 86.364, kg, PRN, PRN Line Flush, Start date: 09/27/12 16:13:00, Duration: 24 hr, Stop date: 09/28/12 16:12:00 citalopram 20 mg 20 mg, 1 tab, PO, Daily, 30 tab, 09/27/2012 09/30/2012 Discontinued oral tablet Substitution Allowed, TAB letrozole 2.5 mg 2.5 mg, 1 tab, PO, Daily, 10 tab, 09/27/2012 09/30/2012 Discontinued oral tablet Substitution Allowed, TAB Sodium Chloride 0.9% 250 mL, Rate: house calls nurse for use with 09/27/2012 09/30/2012 Discontinued (titrate) 250 mL blood product administration, Dosing Weight 86.364, kg, Route: IV, Total Volume: 250, Duration: 30 day, Stop date: 10/27/12 19:59:00, Replace Every: 24 hr ondansetron 4 mg, 2 mL, Route: IVP, Drug form: 09/27/2012 09/30/2012 Discontinued INJ, ONCE, Dosing Weight 86.364, kg, PRN Nausea & Vomiting, Start date: 09/27/12 19:55:00 Saline Flush 0.9% 5 ml, Route: IVP, Drug Form: INJ, 09/27/2012 09/30/2012 Discontinued Dosing Weight 86.364, kg, PRN, PRN Line Flush, Start date: 09/27/12 19:55:00, Duration: 30 day, Stop date: 10/27/12 19:54:00 Sodium Chloride 0.9% 1,000 mL, Rate: 125 ml/hr, Infuse 09/27/2012 09/30/2012 Discontinued IV 1,000 mL over: 8 hr, Route: IV, Dosing Weight 86.364 kg, Total Volume: 1,000, Start date: 09/27/12 19:55:00, Duration: 30 day, Stop date: 10/27/12 19:54:00 letrozole 2.5 mg 2.5 mg, 1 tab, PO, Daily, 30 tab, 09/30/2012 Ordered oral tablet Substitution Allowed, TAB NS (Bolus) IV 500 mL 500 mL, Rate: 500 ml/hr, Infuse 09/27/2012 09/27/2012 Completed over: 1 hr, Route: IV, Dosing Weight 86.364 kg, Total Volume: 500, Priority: STAT, Start date: 09/27/12 16:23:00, Duration: 1 doses or times, Stop date: 09/27/12 17:22:00, Bolus Dose Bolus Dose Zofran 4 mg, 2 mL, Route: IVP, Drug form: 09/28/2012 09/30/2012 Discontinued INJ, Q8H, Dosing Weight 86.619, kg, PRN Nausea, Start date: 09/28/12 12:54:00, Duration: 30 day, Stop date: 10/28/12 12:53:00 Tylenol 650 mg, 2 tab, Route: PO, Drug 09/28/2012 09/30/2012 Discontinued form: TAB, Q6H, Dosing Weight 86.619, kg, PRN Pain, Start date: 09/28/12 12:54:00, Duration: 30 day, Stop date: 10/28/12 12:53:00 tetanus toxoid 0.5 ml, Route: IM, Drug Form: INJ, 08/10/2011 08/10/2011 Completed ONCE, STAT, Start date: 08/10/11 19:48:00, Stop date: 08/10/11 19:48:00 letrozole 2.5 mg, 1 tab, Route: PO, Drug 09/29/2012 09/30/2012 Discontinued form: TAB, Daily, Dosing Weight 86.619, kg, Start date: 09/29/12 9:00:00, Stop date: 10/28/12 9:00:00 citalopram 20 mg, 1 tab, Route: PO, Drug form: 09/29/2012 09/30/2012 Discontinued TAB, Daily, Dosing Weight 86.619, kg, Start date: 09/29/12 9:00:00, Duration: 30 day, Stop date: 10/28/12 9:00:00 Marco 5 mg-20 mg oral 1 tab, Route: PO, Drug Form: TAB, 09/29/2012 09/28/2012 Deleted tablet Dosing Weight 86.619, kg, Daily, Start date: 09/29/12 9:00:00, Duration: 30 day, Stop date: 10/28/12 9:00:00 Janumet 50 mg/1000 2 tab, PO, QAM, 60 tab, 09/27/2012 Ordered mg oral tablet Substitution Allowed, Maintenance, TAB olmesartan 20 mg 20 mg, 1 tab, PO, Daily, 30 tab, 09/30/2012 Ordered oral tablet Substitution Allowed, TAB Immunizations Vaccine Date Status tetanus toxoid 08/10/2011 Auth (Verified) Vital Signs Most recent to oldest [Reference Range]: 1 2 3 Height 162.56 cm (09/27/2012 22:07:00) 162.56 cm (09/27/2012 15:43:00) Current Weight 86.989 kg (09/27/2012 20:00:00) Temperature Oral [96.4-99.1 DegF] 98.3 DegF (09/30/2012 08:00:00) 98.2 DegF (09/30/2012 04:00:00) 98.7 DegF (09/30/2012 00:00:00) Systolic Blood Pressure [90-140 mmHg] 146 mmHg *HI* (09/30/2012 08:00:00) 120 mmHg (09/30/2012 04:00:00) 150 mmHg *HI* (09/30/2012 00:00:00) Diastolic Blood Pressure [60-90 mmHg] 84 mmHg (09/30/2012 08:00:00) 57 mmHg *LOW* (09/30/2012 04:00:00) 66 mmHg (09/30/2012 00:00:00) Respiratory Rate [14-20 BRMIN] 18 BRMIN (09/30/2012 08:00:00) 18 BRMIN (09/30/2012 04:00:00) 18 BRMIN (09/30/2012 00:00:00) Peripheral Pulse Rate [60-100 bpm] 77 bpm (09/30/2012 08:00:00) 67 bpm (09/30/2012 04:00:00) 93 bpm (09/30/2012 00:00:00) Weight 86.619 kg (09/27/2012 22:07:00) 86.364 kg (09/27/2012 15:43:00) Results BEDSIDE GLUCOSE TESTING Most recent to oldest [Reference Range]: 1 2 3 Gluc POC Lifscn [70-99 mg/dL] 167 mg/dL 1 *HI* (09/30/2012 08:40:00) 207 mg/dL 2 *HI* (09/29/2012 21:34:00) 117 mg/dL 3 *HI* (09/29/2012 18:47:00) Comment1 Notify RN/MD *NA* (09/30/2012 08:40:00) Notify RN/MD *NA* (09/29/2012 12:16:00) Notify RN/MD *NA* (09/29/2012 08:37:00) 1Interpretive Data: Upper Reportable Limit: 200 mg/dL. 2Interpretive Data: Upper Reportable Limit: 200 mg/dL. 3Interpretive Data: Upper Reportable Limit: 200 mg/dL. URINALYSIS Most recent to oldest [Reference Range]: 1 2 3 UA Turbidity [Clear] Clear (09/27/2012 16:13:00) UA Color [Yellow] Yellow *NA* (09/27/2012 16:13:00) UA pH [5.0-8.0] 5.0 (09/27/2012 16:13:00) UA Spec Grav [<=1.030] 1.023 (09/27/2012 16:13:00) UA Glucose [Negative mg/dL] Negative mg/dL *NA* (09/27/2012 16:13:00) UA Blood [Negative] Negative (09/27/2012 16:13:00) UA Ketones [Negative mg/dL] Negative mg/dL *NA* (09/27/2012 16:13:00) UA Protein [Negative mg/dL] Negative mg/dL (09/27/2012 16:13:00) UA Urobilinogen [0.1-1.0 mg/dL] <=1.0 mg/dL *NA* (09/27/2012 16:13:00) UA Bili [Negative] Negative *NA* (09/27/2012 16:13:00) UA Leuk Est [Negative] Trace *ABN* (09/27/2012 16:13:00) UA Nitrite [Negative] Negative (09/27/2012 16:13:00) UA WBC [0-5 /HPF] 3 /HPF (09/27/2012 16:13:00) UA RBC [0-2 /HPF] 1 /HPF (09/27/2012 16:13:00) UA Bacteria [None Seen /HPF] Occasional /HPF *NA* (09/27/2012 16:13:00) UA Sq Epi [Few /LPF] Few /LPF *NA* (09/27/2012 16:13:00) UA Mucus [None Seen /LPF] Few /LPF *NA* (09/27/2012 16:13:00) STOOL TESTS Most recent to oldest [Reference Range]: 1 2 3 Occult Bld Stl [Negative] Positive *ABN* (09/27/2012 16:27:00) BLOOD BANK RESULTS Most recent to oldest [Reference Range]: 1 2 3 ABO/Rh O POS *Unknown* (09/27/2012 16:05:00) Antibody Scrn Negative (09/27/2012 16:05:00) CHEMISTRY Most recent to oldest [Reference Range]: 1 2 3 Sodium Lvl [135-145 mEq/L] 144 mEq/L (09/30/2012 05:26:00) 147 mEq/L *HI* (09/29/2012 04:43:00) 142 mEq/L (09/27/2012 16:05:00) Potassium Lvl [3.5-5.1 mEq/L] 4.2 mEq/L (09/30/2012 05:26:00) 3.8 mEq/L (09/29/2012 04:43:00) 3.8 mEq/L (09/27/2012 16:05:00) Chloride Lvl [95-109 mEq/L] 111 mEq/L *HI* (09/30/2012 05:26:00) 111 mEq/L *HI* (09/29/2012 04:43:00) 104 mEq/L (09/27/2012 16:05:00) CO2 [24-32 mEq/L] 26 mEq/L (09/30/2012 05:26:00) 26 mEq/L (09/29/2012 04:43:00) 26 mEq/L (09/27/2012 16:05:00) AGAP [10.0-20.0 mEq/L] 11.2 mEq/L (09/30/2012 05:26:00) 13.8 mEq/L (09/29/2012 04:43:00) 15.8 mEq/L (09/27/2012 16:05:00) Creatinine Lvl [0.5-1.4 mg/dL] 0.9 mg/dL (09/30/2012 05:26:00) 0.9 mg/dL (09/29/2012 04:43:00) 1.1 mg/dL (09/27/2012 16:05:00) eGFR 80 mL/min/1.73m2 4 *NA* (09/30/2012 05:26:00) 80 mL/min/1.73m2 5 *NA* (09/29/2012 04:43:00) 63 mL/min/1.73m2 6 *NA* (09/27/2012 16:05:00) BUN [7-22 mg/dL] 15 mg/dL (09/30/2012 05:26:00) 9 mg/dL (09/29/2012 04:43:00) 21 mg/dL (09/27/2012 16:05:00) Glucose Lvl [70-99 mg/dL] 153 mg/dL 7 *HI* (09/30/2012 05:26:00) 112 mg/dL 8 *HI* (09/29/2012 04:43:00) 123 mg/dL 9 *HI* (09/27/2012 16:05:00) Calcium Lvl [8.5-10.5 mg/dL] 8.8 mg/dL (09/30/2012 05:26:00) 8.5 mg/dL (09/29/2012 04:43:00) 9.2 mg/dL (09/27/2012 16:05:00) 4Result Comment: The eGFR is calculated using [...] be mul tiplied by the estimated BMI. 5Result Comment: The eGFR is calculated using [...] be mul tiplied by the estimated BMI. 6Result Comment: The eGFR is calculated using [...] be mul tiplied by the estimated BMI. 7Interpretive Data: Adult reference range values reflect the clinical guidelines of the [place] [employer]. 8Interpretive Data: Adult reference range values reflect the clinical guidelines of the [place] [employer]. 9Interpretive Data: Adult reference range values reflect the clinical guidelines of the [place] [employer]. HEMATOLOGY Most recent to oldest [Reference Range]: 1 2 3 WBC [3.7-10.4 K/CMM] 5.2 K/CMM (09/30/2012 05:26:00) 5.7 K/CMM (09/29/2012 04:43:00) 10.1 K/CMM (09/27/2012 16:05:00) RBC [4.20-5.40 M/CMM] 4.63 M/CMM (09/30/2012 05:26:00) 4.53 M/CMM (09/29/2012 04:43:00) 5.26 M/CMM (09/27/2012 16:05:00) Hgb [12.0-16.0 g/dL] 11.7 g/dL *LOW* (09/30/2012 05:26:00) 11.2 g/dL *LOW* (09/29/2012 04:43:00) 11.6 g/dL *LOW* (09/28/2012 06:40:00) Hct [36.0-48.0 %] 36.0 % (09/30/2012 05:26:00) 35.4 % *LOW* (09/29/2012 04:43:00) 38.8 % (09/27/2012 18:20:00) MCV [81.0-99.0 fL] 77.7 fL *LOW* (09/30/2012 05:26:00) 78.1 fL *LOW* (09/29/2012 04:43:00) 78.3 fL *LOW* (09/27/2012 16:05:00) MCH [27.0-31.0 pg] 25.2 pg *LOW* (09/30/2012 05:26:00) 24.7 pg *LOW* (09/29/2012 04:43:00) 24.5 pg *LOW* (09/27/2012 16:05:00) MCHC [32.0-36.0 g/dL] 32.5 g/dL (09/30/2012 05:26:00) 31.6 g/dL *LOW* (09/29/2012 04:43:00) 31.4 g/dL *LOW* (09/27/2012 16:05:00) RDW [11.5-14.5 %] 14.3 % (09/30/2012 05:26:00) 14.4 % (09/29/2012 04:43:00) 14.6 % *HI* (09/27/2012 16:05:00) Platelet [133-450 K/CMM] 210 K/CMM (09/30/2012 05:26:00) 207 K/CMM (09/29/2012 04:43:00) 294 K/CMM (09/27/2012 16:05:00) MPV [7.4-10.4 fL] 8.6 fL (09/30/2012 05:26:00) 8.6 fL (09/29/2012 04:43:00) 8.9 fL (09/27/2012 16:05:00) Segs [45.0-75.0 %] 64.7 % (09/30/2012 05:26:00) 62.8 % (09/29/2012 04:43:00) 73.2 % (09/27/2012 16:05:00) Lymphocytes [20.0-40.0 %] 23.6 % (09/30/2012 05:26:00) 25.3 % (09/29/2012 04:43:00) 19.5 % *LOW* (09/27/2012 16:05:00) Monocytes [2.0-12.0 %] 8.7 % (09/30/2012 05:26:00) 7.5 % (09/29/2012 04:43:00) 5.4 % (09/27/2012 16:05:00) Eosinophils [0.0-4.0 %] 2.5 % (09/30/2012 05:26:00) 2.6 % (09/29/2012 04:43:00) 1.4 % (09/27/2012 16:05:00) Basophils [0.0-1.0 %] 0.5 % (09/30/2012 05:26:00) 1.8 % *HI* (09/29/2012 04:43:00) 0.5 % (09/27/2012 16:05:00) Segs-Bands # [1.5-8.1 K/CMM] 3.3 K/CMM (09/30/2012 05:26:00) 3.6 K/CMM (09/29/2012 04:43:00) 7.4 K/CMM (09/27/2012 16:05:00) Lymphocytes # [1.0-5.5 K/CMM] 1.2 K/CMM (09/30/2012 05:26:00) 1.4 K/CMM (09/29/2012 04:43:00) 2.0 K/CMM (09/27/2012 16:05:00) Monocytes # [0.0-0.8 K/CMM] 0.4 K/CMM (09/30/2012 05:26:00) 0.4 K/CMM (09/29/2012 04:43:00) 0.5 K/CMM (09/27/2012 16:05:00) Eosinophils # [0.0-0.5 K/CMM] 0.1 K/CMM (09/30/2012 05:26:00) 0.1 K/CMM (09/29/2012 04:43:00) 0.1 K/CMM (09/27/2012 16:05:00) Basophils # [0.0-0.2 K/CMM] 0.0 K/CMM (09/30/2012 05:26:00) 0.1 K/CMM (09/29/2012 04:43:00) 0.1 K/CMM (09/27/2012 16:05:00) PT [12.0-14.7 seconds] 12.3 seconds (09/27/2012 16:05:00) INR [0.85-1.17] 0.89 10 (09/27/2012 16:05:00) PTT [22.9-35.8 seconds] 24.6 seconds 11 (09/27/2012 16:05:00) 10Interpretive Data: RECOMMENDED RANGES FOR PROTIME INR: 2.0-3.0 for most medical and surgical thromboembolic states. 2.5-3.5 for artificial heart valves and recurrent embolism. INR SHOULD BE USED ONLY FOR PATIENTS ON STABLE ANTICOAGULANT THERAPY. 11Interpretive Data: Heparin Therapeutic Range: 57 - 92 Seconds Microbiology Reports PROCEDURE:Culture: Urine STATUS: Auth (Verified) BODY SITE: COLLECTED DATE/TIME: 09/27/2012 16:13:00 SOURCE: Urine, Clean Catch FREE TEXT SOURCE: FINAL REPORTS Final Report <10,000 CFU/mL [facility] PRELIMINARY REPORTS Preliminary Report No Growth; Holding Procedures Procedures Date Related Diagnosis Abdominal hysterectomy Arm repair 07/21/2012 00:00:00 Breast lumpectomy Cholecystectomy
--- OUTSIDE RECORDS SUMMARY | 2018-07-03 10:20 | XMS REPORT | CCD ---
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 Role Phone Roselia Jimenez Cathleen CP Allergies, Adverse Reactions, Alerts Substance Reaction [...] Medication Instructions Start Date End Date Status insulin aspart 8 unit, 0.08 mL, Route: SUB-Q, Drug 10/03/2012 10/05/2012 Discontinued form: SOLN, Sliding Scale, Dosing Weight 86.364, kg, PRN Blood Glucose Results, Start date: 10/03/12 3:11:00, Duration: 30 day, Stop date: 11/02/12 3:10:00 insulin aspart 6 unit, 0.06 mL, Route: SUB-Q, Drug 10/03/2012 10/05/2012 Discontinued form: SOLN, Sliding Scale, Dosing Weight 86.364, kg, PRN Blood Glucose Results, Start date: 10/03/12 3:11:00, Duration: 30 day, Stop date: 11/02/12 3:10:00 insulin aspart 4 unit, 0.04 mL, Route: SUB-Q, Drug 10/03/2012 10/05/2012 Discontinued form: SOLN, Sliding Scale, Dosing Weight 86.364, kg, PRN Blood Glucose Results, Start date: 10/03/12 3:11:00, Duration: 30 day, Stop date: 11/02/12 3:10:00 insulin aspart 2 unit, 0.02 mL, Route: SUB-Q, Drug 10/03/2012 10/05/2012 Discontinued form: SOLN, Sliding Scale, Dosing Weight 86.364, kg, PRN Blood Glucose Results, Start date: 10/03/12 3:11:00, Duration: 30 day, Stop date: 11/02/12 3:10:00 insulin aspart 10 unit, 0.1 mL, Route: SUB-Q, Drug 10/03/2012 10/05/2012 Discontinued form: SOLN, Sliding Scale, Dosing Weight 86.364, kg, PRN Blood Glucose Results, Start date: 10/03/12 3:11:00, Duration: 30 day, Stop date: 11/02/12 3:10:00 pantoprazole 40 mg, Route: IVP, Drug form: INJ, 10/03/2012 10/05/2012 Discontinued Before Dinner, Dosing Weight 86.364, kg, Priority: Routine, Start date: 10/03/12 16:30:00, Duration: 30 day, Stop date: 11/01/12 16:30:00 Dextrose 50% Syringe 12.5 gm, 25 mL, Route: IVP, Drug 10/03/2012 10/05/2012 Discontinued Form: INJ, Dosing Weight 86.364, kg, PRN, PRN Blood Glucose Results, Start date: 10/03/12 3:11:00, Duration: 30 day, Stop date: 11/02/12 3:10:00 Dextrose 50% Syringe 25 gm, 50 mL, Route: IVP, Drug 10/03/2012 10/05/2012 Discontinued Form: INJ, Dosing Weight 86.364, kg, PRN, PRN Blood Glucose Results, Start date: 10/03/12 3:11:00, Duration: 30 day, Stop date: 11/02/12 3:10:00 glucagon 1 mg, Route: IM, Drug form: 10/03/2012 10/05/2012 Discontinued PDR/INJ, PRN, Dosing Weight 86.364, kg, PRN Blood Glucose Results, Start date: 10/03/12 3:11:00, Duration: 30 day, Stop date: 11/02/12 3:10:00 Zofran 4 mg, 2 mL, Route: IV, Drug form: 10/03/2012 10/03/2012 Deleted INJ, Q4H, Dosing Weight 86.364, kg, PRN as needed for nausea/vomiting, Start date: 10/03/12 3:17:00, Duration: 30 day, Stop date: 11/02/12 3:16:00 Midrin PO, PRN, as needed for migraine 10/03/2012 Suspended headache, Substitution Allowed, Maintenance Benadryl 25 mg, 1 tab, Route: PO, Drug form: 10/03/2012 10/05/2012 Discontinued TAB, Bedtime, Dosing Weight 86.364, kg, PRN Insomnia, Start date: 10/03/12 3:15:00, Duration: 30 day, Stop date: 11/02/12 3:14:00 hydrocortisone 25 mg 25 mg, 1 supp, Route: VA, Bedtime, 10/03/2012 10/05/2012 Discontinued rectal suppository Drug form: SUPP, Start date: 10/03/12 21:00:00, Duration: 30 day, Stop date: 11/01/12 21:00:00 ondansetron 4 mg, Route: IVP, ONCE, Dosing 10/03/2012 10/03/2012 Discontinued Weight 86.364, kg, PRN Nausea & Vomiting, Start date: 10/03/12 3:11:00 Saline Flush 0.9% 5 ml, Route: IVP, Drug Form: INJ, 10/03/2012 10/05/2012 Discontinued Dosing Weight 86.364, kg, PRN, PRN Line Flush, Start date: 10/03/12 3:11:00, Duration: 30 day, Stop date: 11/02/12 3:10:00 Sodium Chloride 0.9% 1,000 mL, Rate: 100 ml/hr, Infuse 10/03/2012 10/03/2012 Discontinued IV 1,000 mL over: 10 hr, Route: IV, Dosing Weight 86.364 kg, Total Volume: 1,000, Start date: 10/03/12 3:11:00, Duration: 30 day, Stop date: 11/02/12 3:10:00 hydrocortisone 2.5% 1 appl, Route: VA, BID, Drug form: 10/03/2012 10/05/2012 Discontinued rectal cream with CRM/A, Start date: 10/03/12 applicator 17:00:00, Duration: 30 day, Stop date: 11/02/12 9:00:00 olmesartan 20 mg, Route: PO, Drug form: TAB, 10/03/2012 10/03/2012 Deleted Daily, Dosing Weight 86.364, kg, Start date: 10/03/12 9:00:00, Duration: 30 day, Stop date: 11/01/12 9:00:00 letrozole 2.5 mg, 1 tab, Route: PO, Drug 10/03/2012 10/05/2012 Discontinued form: TAB, Daily, Dosing Weight 86.364, kg, Start date: 10/03/12 9:00:00, Stop date: 11/01/12 9:00:00 citalopram 20 mg, 1 tab, Route: PO, Drug form: 10/03/2012 10/05/2012 Discontinued TAB, Daily, Dosing Weight 86.364, kg, Start date: 10/03/12 9:00:00, Duration: 30 day, Stop date: 11/01/12 9:00:00 Restoril 15 mg, 1 cap, Route: PO, Drug form: 10/03/2012 10/05/2012 Discontinued CAP, Bedtime, Dosing Weight 86.364, kg, PRN Sleep, Start date: 10/03/12 14:48:00, Duration: 30 day, Stop date: 11/02/12 14:47:00 Zofran 4 mg, 2 mL, Route: IVP, Drug form: 10/03/2012 10/05/2012 Discontinued INJ, Q4H, Dosing Weight 86.364, kg, PRN Nausea, Start date: 10/03/12 14:48:00, Duration: 30 day, Stop date: 11/02/12 14:47:00 Tylenol 650 mg, 2 tab, Route: PO, Drug 10/03/2012 10/05/2012 Discontinued form: TAB, Q6H, Dosing Weight 86.364, kg, PRN Pain Score 1-3, Start date: 10/03/12 14:48:00, Duration: 30 day, Stop date: 11/02/12 14:47:00 Midrin 1 cap, Route: PO, Drug Form: CAP, 10/03/2012 10/05/2012 Discontinued Dosing Weight 86.364, kg, TID, PRN as needed for headache, Start date: 10/03/12 4:38:00, Stop date: 11/02/12 4:37:00 olmesartan 20 mg, 1 tab, Route: PO, Drug form: 10/03/2012 10/05/2012 Discontinued TAB, Daily, Dosing Weight 86.364, kg, Start date: 10/03/12 9:00:00, Duration: 30 day, Stop date: 11/01/12 9:00:00 MiraLax 17 gm, 1 pkt, Route: PO, Drug form: 10/05/2012 10/05/2012 Discontinued PWDR, Daily, Dosing Weight 86.364, kg, Start date: 10/05/12 9:00:00, Duration: 30 day, Stop date: 11/03/12 9:00:00 morphine Sulfate 2 mg, 1 mL, Route: IV, Drug form: 10/03/2012 10/05/2012 Discontinued INJ, Q3H, Dosing Weight 86.364, kg, PRN as needed for pain, Priority: NOW, Start date: 10/03/12 5:26:00, Duration: 30 day, Stop date: 11/02/12 5:25:00 psyllium 3.4 gm, 1 pkt, Route: PO, Drug 10/04/2012 10/05/2012 Discontinued Form: PDR/REC, Dosing Weight 86.364, kg, BID, Start date: 10/04/12 17:00:00, Duration: 30 day, Stop date: 11/03/12 9:00:00 Tylenol 650 mg, 20.3 mL, Route: PO, Drug 10/03/2012 10/05/2012 Discontinued form: LIQ, Q6H, Dosing Weight 86.364, kg, PRN as needed for pain, Priority: NOW, Start date: 10/03/12 5:26:00, Duration: 30 day, Stop date: 11/02/12 5:25:00 Fioricet 1 tab, Route: PO, Drug Form: TAB, 10/03/2012 10/05/2012 Discontinued Dosing Weight 86.364, kg, Q6H, PRN Headache, Start date: 10/03/12 11:26:00, Duration: 30 day, Stop date: 11/02/12 11:25:00 NS 0.45% IV 1,000 mL 1,000 mL, Rate: 100 ml/hr, Infuse 10/03/2012 10/04/2012 Completed over: 10 hr, Route: IV, Dosing Weight 86.364 kg, Total Volume: 1,000, Start date: 10/03/12 4:52:00, Duration: 1 day, Stop date: 10/04/12 4:51:00 Norvasc 5 mg, 1 tab, Route: PO, Drug form: 10/03/2012 10/05/2012 Discontinued TAB, Daily, Start date: 10/03/12 9:00:00, Duration: 30 day, Stop date: 11/01/12 9:00:00 atropine 0.5 mg, 5 mL, Route: IVP, Drug 10/03/2012 10/05/2012 Discontinued form: INJ, PRN, PRN Bradycardia, Start date: 10/03/12 3:05:00, Duration: 30 day, Stop date: 11/02/12 3:04:00 Marco 5 mg-20 mg oral 1 tab, Route: PO, Drug Form: TAB, 10/03/2012 10/03/2012 Deleted tablet Dosing Weight 86.364, kg, Daily, Start date: 10/03/12 9:00:00, Duration: 30 day, Stop date: 11/01/12 9:00:00 hydrocortisone-pramo 1 appl, VA, BID, 30 gm, 2, 2, 10/03/2012 Ordered xine topical 2.5%-1% Substitution Allowed, CRM cream hydrocortisone 25 mg, Route: VA, Bedtime, Dosing 10/03/2012 10/03/2012 Deleted Weight 86.364, kg, Start date: 10/03/12 21:00:00, Duration: 30 day, Stop date: 11/01/12 21:00:00 hydrocortisone-pramo 1 appl, Route: VA, BID, Start date: 10/03/2012 10/03/2012 Deleted xine topical 2.5%-1% 10/03/12 17:00:00, Duration: 30 cream day, Stop date: 11/02/12 9:00:00 tetanus toxoid 0.5 ml, Route: IM, Drug Form: INJ, 08/10/2011 08/10/2011 Completed ONCE, STAT, Start date: 08/10/11 19:48:00, Stop date: 08/10/11 19:48:00 citalopram 20 mg, PO, Daily, Substitution 10/03/2012 Suspended Allowed letrozole 2.5 mg, PO, Daily, Substitution 10/03/2012 Suspended Allowed olmesartan 20 mg, 1 tab, PO, Daily, 30 tab, 10/03/2012 Suspended Substitution Allowed Immunizations Vaccine Date Status tetanus toxoid 08/10/2011 Auth (Verified) Vital Signs Most recent to oldest [Reference Range]: 1 2 3 Height 149.86 cm (10/02/2012 22:30:00) Temperature Oral [96.4-99.1 DegF] 99.8 DegF *HI* (10/05/2012 15:19:00) 98.3 DegF (10/05/2012 08:00:00) 98.2 DegF (10/05/2012 04:00:00) Systolic Blood Pressure [90-140 mmHg] 116 mmHg (10/05/2012 15:19:00) 144 mmHg *HI* (10/05/2012 08:00:00) 152 mmHg *HI* (10/05/2012 04:00:00) Diastolic Blood Pressure [60-90 mmHg] 79 mmHg (10/05/2012 15:19:00) 78 mmHg (10/05/2012 08:00:00) 75 mmHg (10/05/2012 04:00:00) Respiratory Rate [14-20 BRMIN] 20 BRMIN (10/05/2012 15:19:00) 16 BRMIN (10/05/2012 08:00:00) 18 BRMIN (10/05/2012 04:00:00) Peripheral Pulse Rate [60-100 bpm] 105 bpm *HI* (10/05/2012 15:19:00) 72 bpm (10/05/2012 08:00:00) 78 bpm (10/05/2012 04:00:00) Weight 86.364 kg (10/02/2012 22:30:00) Results BEDSIDE GLUCOSE TESTING Most recent to oldest [Reference Range]: 1 2 3 Gluc POC Lifscn [70-99 mg/dL] 177 mg/dL 1 *HI* (10/05/2012 17:36:00) 211 mg/dL 2 *HI* (10/05/2012 12:35:00) 151 mg/dL 3 *HI* (10/05/2012 08:02:00) Comment1 Notify RN/MD *NA* (10/05/2012 17:36:00) Notify RN/MD *NA* (10/05/2012 12:35:00) Notify RN/MD *NA* (10/04/2012 21:37:00) 1Interpretive Data: Upper Reportable Limit: 200 mg/dL. 2Interpretive Data: Upper Reportable Limit: 200 mg/dL. 3Interpretive Data: Upper Reportable Limit: 200 mg/dL. CHEMISTRY Most recent to oldest [Reference Range]: 1 2 3 Sodium Lvl [135-145 mEq/L] 143 mEq/L (10/05/2012 05:31:00) 144 mEq/L (10/04/2012 03:26:00) 144 mEq/L (10/03/2012 07:17:00) Potassium Lvl [3.5-5.1 mEq/L] 4.3 mEq/L (10/05/2012 05:31:00) 3.9 mEq/L (10/04/2012 03:26:00) 4.1 mEq/L (10/03/2012 07:17:00) Chloride Lvl [95-109 mEq/L] 108 mEq/L (10/05/2012 05:31:00) 109 mEq/L (10/04/2012 03:26:00) 110 mEq/L *HI* (10/03/2012 07:17:00) CO2 [24-32 mEq/L] 25 mEq/L (10/05/2012 05:31:00) 27 mEq/L (10/04/2012 03:26:00) 27 mEq/L (10/03/2012 07:17:00) AGAP [10.0-20.0 mEq/L] 14.3 mEq/L (10/05/2012 05:31:00) 11.9 mEq/L (10/04/2012 03:26:00) 11.1 mEq/L (10/03/2012 07:17:00) Creatinine Lvl [0.5-1.4 mg/dL] 0.9 mg/dL (10/05/2012 05:31:00) 1.0 mg/dL (10/04/2012 03:26:00) 0.9 mg/dL (10/03/2012 07:17:00) eGFR 80 mL/min/1.73m2 4 *NA* (10/05/2012 05:31:00) 70 mL/min/1.73m2 5 *NA* (10/04/2012 03:26:00) 80 mL/min/1.73m2 6 *NA* (10/03/2012 07:17:00) BUN [7-22 mg/dL] 14 mg/dL (10/05/2012 05:31:00) 13 mg/dL (10/04/2012 03:26:00) 13 mg/dL (10/03/2012 07:17:00) B/C Ratio [6-25] 16 (10/05/2012 05:31:00) 14 (10/03/2012 07:17:00) Glucose Lvl [70-99 mg/dL] 166 mg/dL 7 *HI* (10/05/2012 05:31:00) 195 mg/dL 8 *HI* (10/04/2012 03:26:00) 135 mg/dL 9 *HI* (10/03/2012 07:17:00) Total Protein [6.4-8.4 g/dL] 6.6 g/dL (10/05/2012 05:31:00) 6.6 g/dL (10/03/2012 07:17:00) Albumin Lvl [3.5-5.0 g/dL] 3.4 g/dL *LOW* (10/05/2012:31:00) 3.5 g/dL (10/03/2012 07:17:00) Globulin [2.0-4.0 g/dL] 3.2 g/dL (10/05/2012:31:00) 3.1 g/dL (10/03/2012 07:17:00) A/G Ratio [0.7-1.6] 1.1 (10/05/2012 05:31:00) 1.1 (10/03/2012 07:17:00) Calcium Lvl [8.5-10.5 mg/dL] 9.0 mg/dL (10/05/2012:31:00) 8.3 mg/dL *LOW* (10/04/2012:26:00) 8.8 mg/dL (10/03/2012:17:00) Phosphorus [2.5-4.5 mg/dL] 2.8 mg/dL (10/04/2012::00) Magnesium Lvl [1.8-2.4 mg/dL] 2.0 mg/dL (10/04/2012:26:00) ALT [0-65 unit/L] 23 unit/L (10/05/2012::00) 25 unit/L (10/03/2012:17:00) AST [0-37 unit/L] 11 unit/L (10/05/2012:) 22 unit/L (10/03/2012:17:00) Alk Phos [39-136 unit/L] 109 unit/L (10/05/2012:) 110 unit/L (10/03/2012:17:00) Bili Total [0.2-1.3 mg/dL] 0.5 mg/dL (10/05/2012::00) 0.4 mg/dL (10/03/2012:17:00) 4Result Comment: The eGFR is calculated using [...] values reflect the clinical guidelines of the [place]. 8Interpretive Data: Adult reference range values reflect the clinical guidelines of the [place]. 9Interpretive Data: Adult reference range values reflect the clinical guidelines of the [place]. HEMATOLOGY Most recent to oldest [Reference Range]: 1 2 3 WBC [3.7-10.4 K/CMM] 6.0 K/CMM (10/05/2012 05:31:00) 5.8 K/CMM (10/04/2012 03:26:00) 5.4 K/CMM (10/03/2012 07:17:00) RBC [4.20-5.40 M/CMM] 4.78 M/CMM (10/05/2012 05:31:00) 4.41 M/CMM (10/04/2012 03:26:00) 4.54 M/CMM (10/03/2012 07:17:00) Hgb [12.0-16.0 g/dL] 11.8 g/dL *LOW* (10/05/2012 05:31:00) 11.1 g/dL *LOW* (10/04/2012 03:26:00) 11.2 g/dL *LOW* (10/03/2012 07:17:00) Hct [36.0-48.0 %] 36.9 % (10/05/2012 05:31:00) 34.5 % *LOW* (10/04/2012 03:26:00) 35.6 % *LOW* (10/03/2012 07:17:00) MCV [81.0-99.0 fL] 77.2 fL *LOW* (10/05/2012 05:31:00) 78.2 fL *LOW* (10/04/2012 03:26:00) 78.5 fL *LOW* (10/03/2012 07:17:00) MCH [27.0-31.0 pg] 24.7 pg *LOW* (10/05/2012 05:31:00) 25.1 pg *LOW* (10/04/2012 03:26:00) 24.8 pg *LOW* (10/03/2012 07:17:00) MCHC [32.0-36.0 g/dL] 32.0 g/dL (10/05/2012 05:31:00) 32.1 g/dL (10/04/2012 03:26:00) 31.5 g/dL *LOW* (10/03/2012 07:17:00) RDW [11.5-14.5 %] 14.7 % *HI* (10/05/2012 05:31:00) 14.6 % *HI* (10/04/2012 03:26:00) 14.6 % *HI* (10/03/2012 07:17:00) Platelet [133-450 K/CMM] 196 K/CMM (10/05/2012 05:31:00) 206 K/CMM (10/04/2012 03:26:00) 194 K/CMM (10/03/2012 07:17:00) MPV [7.4-10.4 fL] 8.9 fL (10/05/2012 05:31:00) 8.5 fL (10/04/2012 03:26:00) 8.6 fL (10/03/2012 07:17:00) Segs [45.0-75.0 %] 67.3 % (10/05/2012 05:31:00) 74.8 % (10/04/2012 03:26:00) 64.2 % (10/03/2012 07:17:00) Lymphocytes [20.0-40.0 %] 23.1 % (10/05/2012 05:31:00) 17.1 % *LOW* (10/04/2012 03:26:00) 25.8 % (10/03/2012 07:17:00) Monocytes [2.0-12.0 %] 5.6 % (10/05/2012 05:31:00) 3.9 % (10/04/2012 03:26:00) 5.9 % (10/03/2012 07:17:00) Eosinophils [0.0-4.0 %] 3.6 % (10/05/2012 05:31:00) 3.8 % (10/04/2012 03:26:00) 3.7 % (10/03/2012 07:17:00) Basophils [0.0-1.0 %] 0.4 % (10/05/2012 05:31:00) 0.4 % (10/04/2012 03:26:00) 0.4 % (10/03/2012 07:17:00) Segs-Bands # [1.5-8.1 K/CMM] 4.0 K/CMM (10/05/2012 05:31:00) 4.3 K/CMM (10/04/2012 03:26:00) 3.5 K/CMM (10/03/2012 07:17:00) Lymphocytes # [1.0-5.5 K/CMM] 1.4 K/CMM (10/05/2012 05:31:00) 1.0 K/CMM (10/04/2012 03:26:00) 1.4 K/CMM (10/03/2012 07:17:00) Monocytes # [0.0-0.8 K/CMM] 0.3 K/CMM (10/05/2012 05:31:00) 0.2 K/CMM (10/04/2012 03:26:00) 0.3 K/CMM (10/03/2012 07:17:00) Eosinophils # [0.0-0.5 K/CMM] 0.2 K/CMM (10/05/2012 05:31:00) 0.2 K/CMM (10/04/2012 03:26:00) 0.2 K/CMM (10/03/2012 07:17:00) Basophils # [0.0-0.2 K/CMM] 0.0 K/CMM (10/05/2012 05:31:00) 0.0 K/CMM (10/04/2012 03:26:00) 0.0 K/CMM (10/03/2012 07:17:00) PT [12.0-14.7 seconds] 12.4 seconds (10/03/2012 07:17:00) 12.3 seconds (10/03/2012 01:40:00) INR [0.85-1.17] 0.90 10 (10/03/2012 07:17:00) 0.89 11 (10/03/2012 01:40:00) PTT [22.9-35.8 seconds] 28.6 seconds 12 (10/03/2012 07:17:00) 10Interpretive Data: RECOMMENDED RANGES FOR PROTIME INR: 2.0-3.0 for most medical and surgical thromboembolic states. 2.5-3.5 for artificial heart valves and recurrent embolism. INR SHOULD BE USED ONLY FOR PATIENTS ON STABLE ANTICOAGULANT THERAPY. 11Interpretive Data: RECOMMENDED RANGES FOR PROTIME INR: 2.0-3.0 for most medical and surgical thromboembolic states. 2.5-3.5 for artificial heart valves and recurrent embolism. INR SHOULD BE USED ONLY FOR PATIENTS ON STABLE ANTICOAGULANT THERAPY. 12Interpretive Data: Heparin Therapeutic Range: 57 - 92 Seconds
--- OUTSIDE RECORDS SUMMARY | 2018-07-03 10:20 | XMS REPORT | CCD ---
Author Author Auto Generated Organization [facility] Address Unknown Phone Unavailable Care Team Providers Care Director Of Physical Therapy Name Role Phone Heidy Peña CP Allergies, Adverse Reactions, Alerts Substance Reaction [...] oldest [Reference Range]: 1 Height 162.56 cm (03/02/2013 18:55:00) Temperature Oral [96.4-99.1 DegF] 98.6 DegF (03/02/2013 18:55:00) Systolic Blood Pressure [90-140 mmHg] 184 mmHg *HI* (03/02/2013 18:55:00) Diastolic Blood Pressure [60-90 mmHg] 85 mmHg (03/02/2013 18:55:00) Respiratory Rate [14-20 BRMIN] 16 BRMIN (03/02/2013 18:55:00) Peripheral Pulse Rate [60-100 bpm] 90 bpm (03/02/2013 18:55:00) Weight 86.364 kg (03/02/2013 18:55:00)
--- OUTSIDE RECORDS SUMMARY | 2018-07-03 10:21 | XMS REPORT | Summary of Care ---
Author Organization Unknown Address Unknown Phone Unavailable Encounter HQ Jama(DONNY) [id number] Date(s): 12/23/13 - 12/24/13 [facility] [address] [address] [place], [place] [id number] [place] [address] Discharge Disposition: Home Physician Attending: Rey Gandara MD Physician Admitting: Rey Gandara MD Reason for Visit CHEST PAIN Vital Signs 1 2 3 Most recent to oldest [Reference Range]: 162.56 cm (12/23/13 6:09 PM) 162.56 cm (12/23/13 11:23 AM) Height 98.1 DegF (12/24/13 8:00 AM) 97.9 DegF (12/24/13 4:22 AM) 98.7 DegF (12/24/13 12:06 AM) Temperature Oral [96.4-99.1 DegF] 138 mmHg (12/24/13 8:00 AM) 119 mmHg (12/24/13 4:22 AM) 125 mmHg (12/24/13 12:06 AM) Systolic Blood Pressure [90-140 mmHg] 74 mmHg (12/24/13 8:00 AM) 65 mmHg (12/24/13 4:22 AM) 66 mmHg (12/24/13 12:06 AM) Diastolic Blood Pressure [60-90 mmHg] 18 BRMIN (12/24/13 8:00 AM) 18 BRMIN (12/24/13 4:22 AM) 18 BRMIN (12/24/13 12:06 AM) Respiratory Rate [14-20 BRMIN] 69 bpm (12/24/13 8:00 AM) 81 bpm (12/24/13 4:22 AM) 73 bpm (12/24/13 12:06 AM) Peripheral Pulse Rate [60-100 bpm] 88.182 kg (12/23/13 6:09 PM) 86.364 kg (12/23/13 11:23 AM) Weight 33.37 m2 (12/23/13 6:09 PM) 32.68 m2 (12/23/13 11:23 AM) Body Mass Index Problem List Condition Effective [...] hallucinations as per Doreen in ER Medications Ambien 5 mg, Route: PO, Bedtime, Dosing Weight 88.182, kg, PRN Insomnia, Start date: 21:47:00, Duration: 30 day, Stop date: 01/22/14 21:46:00 Start Date: 12/23/13 Stop Date: 12/23/13 Status: Deleted aspirin 324 mg, 4 tab, Route: PO, Drug form: CHEWTAB, ONCE, Dosing Weight 86.364, kg, Pr iority: STAT, Start date: 12/23/13 13:44:00, Stop date: 12/23/13 13:44:00 Notes: Take with food. Start Date: 12/23/13 Stop Date: 12/23/13 Status: Completed aspirin 325 mg tablet 325 mg, 1 tab, Route: PO, Drug form: TAB, Daily, Dosing Weight 86.364, kg, Start date: 12/24/13 9:00:00, Duration: 30 day, Stop date: 01/22/14 9:00:00 Notes: Take with food. Start Date: 12/24/13 Stop Date: 12/24/13 Status: Discontinued atropine 0.5 mg, 5 mL, Route: IVP, Drug form: INJ, PRN, PRN Bradycardia, Start date: 07/03 18:56:00, Duration: 30 day, Stop date: 01/22/14 18:55:00 Start Date: 12/23/13 Stop Date: 12/24/13 Status: Discontinued Dextrose 50% Syringe 25 gm, 50 mL, Route: IVP, Drug Form: INJ, Dosing Weight 86.364, kg, PRN, PRN Blo od Glucose Results, Start date: 12/23/13 17:08:00, Duration: 30 day, Stop date: 01/22/14 17:07:00 Start Date: 12/23/13 Stop Date: 12/24/13 Status: Discontinued Dextrose 50% Syringe 12.5 gm, 25 mL, Route: IVP, Drug Form: INJ, Dosing Weight 86.364, kg, PRN, PRN B lood Glucose Results, Start date: 12/23/13 17:08:00, Duration: 30 day, Stop date : 01/22/14 17:07:00 Start Date: 12/23/13 Stop Date: 12/24/13 Status: Discontinued enoxaparin 80 mg, 0.8 mL, Route: SUB-Q, Drug form: INJ, ONCE, Dosing Weight 86.364, kg, Carolina ority: STAT, Start date: 12/23/13 16:57:00, Stop date: 12/23/13 16:57:00 Notes: Nurse to ensure documentation of patient education per anticoagulation po licy. (Same as: Lovenox) Start Date: 12/23/13 Stop Date: 12/23/13 Status: Completed enoxaparin 40 mg, Route: SUB-Q, Drug form: INJ, [id number], Dosing Weight 86.364, kg, Start d ate: 12/23/13 17:00:00, Duration: 30 day, Stop date: 01/21/14 17:00:00 Start Date: 12/23/13 Stop Date: 12/23/13 Status: Canceled glucagon 1 mg, Route: IM, Drug form: PDR/INJ, PRN, Dosing Weight 86.364, kg, PRN Blood Gl ucose Results, Start date: 12/23/13 17:08:00, Duration: 30 day, Stop date: 01/22 17:07:00 Start Date: 12/23/13 Stop Date: 12/24/13 Status: Discontinued hydrochlorothiazide 25 mg oral tablet 25 mg=1 tab, PO, Daily, # 30 tab, 0 Refill(s) Start Date: 12/23/13 Status: Ordered insulin aspart 10 unit, 0.1 mL, Route: SUB-Q, Drug form: SOLN, Sliding Scale, Dosing Weight 86. 364, kg, PRN Blood Glucose Results, Start date: 12/23/13 17:08:00, Duration: 30 day, Stop date: 01/22/14 17:07:00 Notes: Roll in palms of hands gently; Do not shake vigorously. (Same as: NovoLO G)"single patient use only" Stable for 28 days at room temperature.Expires in _ ____ days from Date Start Date: 12/23/13 Stop Date: 12/24/13 Status: Discontinued insulin aspart 8 unit, 0.08 mL, Route: SUB-Q, Drug form: SOLN, Sliding Scale, Dosing Weight 86. 364, kg, PRN Blood Glucose Results, Start date: 12/23/13 17:08:00, Duration: 30 day, Stop date: 01/22/14 17:07:00 Notes: Roll in palms of hands gently; Do not shake vigorously. (Same as: NovoLO G)"single patient use only" Stable for 28 days at room temperature.Expires in _ ____ days from Date Start Date: 12/23/13 Stop Date: 12/24/13 Status: Discontinued insulin aspart 2 unit, 0.02 mL, Route: SUB-Q, Drug form: SOLN, Sliding Scale, Dosing Weight 86. 364, kg, PRN Blood Glucose Results, Start date: 12/23/13 17:08:00, Duration: 30 day, Stop date: 01/22/14 17:07:00 Notes: Roll in palms of hands gently; Do not shake vigorously. (Same as: NovoLO G)"single patient use only" Stable for 28 days at room temperature.Expires in _ ____ days from Date Start Date: 12/23/13 Stop Date: 12/24/13 Status: Discontinued insulin aspart 6 unit, 0.06 mL, Route: SUB-Q, Drug form: SOLN, Sliding Scale, Dosing Weight 86. 364, kg, PRN Blood Glucose Results, Start date: 12/23/13 17:08:00, Duration: 30 day, Stop date: 01/22/14 17:07:00 Notes: Roll in palms of hands gently; Do not shake vigorously. (Same as: NovoLO G)"single patient use only" Stable for 28 days at room temperature.Expires in _ ____ days from Date Start Date: 12/23/13 Stop Date: 12/24/13 Status: Discontinued insulin aspart 4 unit, 0.04 mL, Route: SUB-Q, Drug form: SOLN, Sliding Scale, Dosing Weight 86. 364, kg, PRN Blood Glucose Results, Start date: 12/23/13 17:08:00, Duration: 30 day, Stop date: 01/22/14 17:07:00 Notes: Roll in palms of hands gently; Do not shake vigorously. (Same as: NovoLO G)"single patient use only" Stable for 28 days at room temperature.Expires in _ ____ days from Date Start Date: 12/23/13 Stop Date: 12/24/13 Status: Discontinued meloxicam 7.5 mg oral tablet 7.5 mg=1 tab, PO, BID, # 30 tab, 0 Refill(s) Start Date: 12/23/13 Status: Ordered metoprolol tartrate 25 mg, 1 tab, Route: PO, Drug form: TAB, BID, Dosing Weight 86.364, kg, Priority : STAT, Start date: 12/23/13 16:55:00, Duration: 30 day, Stop date: 01/22/14 9:0 0:00 Notes: (Same as: Lopressor) Start Date: 12/23/13 Stop Date: 12/24/13 Status: Discontinued morphine Sulfate 2 mg, Route: IVP, Drug form: INJ, ONCE, Dosing Weight 86.364, kg, Priority: STAT , Start date: 12/23/13 15:28:00, Stop date: 12/23/13 15:28:00 Start Date: 12/23/13 Stop Date: 12/23/13 Status: Completed nitroglycerin SL Tab 0.4 mg, 1 tab, Route: SL, Drug form: TAB, Q5Min, Dosing Weight 86.364, kg, PRN C hest Pain, Start date: 12/23/13 17:06:00, Duration: 3 doses or times, Stop date: Limited # of times Notes: (Same as:Nitroquick, Nitrostat)"Do Not Crush" Sublingual tablet Start Date: 12/23/13 Stop Date: 12/24/13 Status: Discontinued NovoLOG FlexPen 100 units/mL subcutaneous solution 10 unit, SUB-Q, TID-Before Meals, # 3 mL, 0 Refill(s) Start Date: 12/23/13 Status: Ordered ondansetron 4 mg, 2 mL, Route: IVP, Drug form: INJ, ONCE, Dosing Weight 86.364, kg, Priority : STAT, Start date: 12/23/13 13:44:00, Stop date: 12/23/13 13:44:00 Notes: (Same as: Zofran) Start Date: 12/23/13 Stop Date: 12/23/13 Status: Completed Restoril 7.5 mg, 1 cap, Route: PO, Drug form: CAP, Bedtime, PRN Insomnia, Start date: 07/03 22:04:00, Duration: 30 day, Stop date: 01/22/14 22:03:00 Notes: (Same As: Restoril) Start Date: 12/23/13 Stop Date: 12/24/13 Status: Discontinued Saline Flush 0.9% 10 mL, Route: IVP, Drug Form: INJ, Dosing Weight 86.364, kg, PRN, PRN Line Flush , Start date: 12/23/13 13:44:00, Duration: 30 day, Stop date: 01/22/14 13:43:00 Notes: (Same as: BD Posiflush) Start Date: 12/23/13 Stop Date: 12/23/13 Status: Discontinued Saline Flush 0.9% 5 ml, Route: IVP, Drug Form: INJ, Dosing Weight 86.364, kg, PRN, PRN Line Flush, Start date: 12/23/13 17:06:00, Duration: 30 day, Stop date: 01/22/14 17:05:00 Notes: (Same as: BD Posiflush) Start Date: 12/23/13 Stop Date: 12/24/13 Status: Discontinued Saline Flush 0.9% 5 ml, Route: IVP, Drug Form: INJ, Dosing Weight 86.364, kg, Q12H, Start date: 21:00:00, Duration: 30 day, Stop date: 01/22/14 9:00:00 Notes: (Same as: BD Posiflush) Start Date: 12/23/13 Stop Date: 12/24/13 Status: Discontinued Tradjenta 5 mg oral tablet 5 mg=1 tab, PO, Daily, 0 Refill(s) Start Date: 12/23/13 Status: Ordered Results ELECTROLYTES 1 2 3 Most recent to oldest [Reference Range]: 137 mEq/L (12/23/13 11:38 AM) Sodium Lvl [135-145 mEq/L] 4.6 mEq/L (12/23/13 11:38 AM) Potassium Lvl [3.5-5.1 mEq/L] 105 mEq/L (12/23/13 11:38 AM) Chloride Lvl [95-109 mEq/L] 25 mEq/L (12/23/13 11:38 AM) CO2 [24-32 mEq/L] 11.6 mEq/L (12/23/13 11:38 AM) AGAP [10.0-20.0 mEq/L] CHEM PANEL 1 2 3 Most recent to oldest [Reference Range]: 0.8 mg/dL (12/23/13 11:38 AM) Creatinine Lvl [0.5-1.4 mg/dL] 91 mL/min/1.73m2 1 *NA* (12/23/13 11:38 AM) eGFR 22 mg/dL (12/23/13 11:38 AM) BUN [7-22 mg/dL] 28 *HI* (12/23/13 11:38 AM) B/C Ratio [6-25] 178 mg/dL 2 *HI* (12/23/13 11:38 AM) Glucose Lvl [70-99 mg/dL] 8.5 g/dL *HI* (12/23/13 11:38 AM) Total Protein [6.4-8.4 g/dL] 4.3 g/dL (12/23/13 11:38 AM) Albumin Lvl [3.5-5.0 g/dL] 4.2 g/dL *HI* (12/23/13 11:38 AM) Globulin [2.0-4.0 g/dL] 1.0 (12/23/13 11:38 AM) A/G Ratio [0.7-1.6] 9.3 mg/dL (12/23/13 11:38 AM) Calcium Lvl [8.5-10.5 mg/dL] 2.5 mg/dL (12/23/13 11:38 AM) Phosphorus [2.5-4.5 mg/dL] 1.8 mg/dL (12/23/13 11:38 AM) Magnesium Lvl [1.8-2.4 mg/dL] 31 unit/L (12/23/13 11:38 AM) ALT [0-65 unit/L] 22 unit/L (12/23/13 11:38 AM) AST [0-37 unit/L] 139 unit/L *HI* (12/23/13 11:38 AM) Alk Phos [39-136 unit/L] 0.7 mg/dL (12/23/13 11:38 AM) Bili Total [0.2-1.3 mg/dL] 1Result Comment: The eGFR is calculated using [...] values reflect the clinical guidelines of the [place] [employer]. CARDIAC ENZYMES 1 2 3 Most recent to oldest [Reference Range]: 259 unit/L *HI* (12/23/13 11:05 PM) 300 unit/L *HI* (12/23/13 6:48 PM) 408 unit/L *HI* (12/23/13 11:38 AM) Total CK [12-191 unit/L] 0.9 ng/mL (12/23/13 11:05 PM) 1.2 ng/mL (12/23/13 6:48 PM) 1.8 ng/mL (12/23/13 11:38 AM) CK MB [0.5-3.6 ng/mL] 0.3 (12/23/13 11:05 PM) 0.4 (12/23/13 6:48 PM) 0.4 (12/23/13 11:38 AM) CK MB Index [0.0-2.5] 0.03 ng/mL (12/23/13 11:05 PM) 0.04 ng/mL (12/23/13 6:48 PM) 0.03 ng/mL (12/23/13 11:38 AM) Troponin-I [0.00-0.40 ng/mL] <2 pg/mL 3 (12/23/13 3:20 PM) BNP [<=100 pg/mL] 3Interpretive Data: Elevated results are in line with increasing severity of congestive heart failure. Minor elevations between 100 and 300 may be seen with Myocardial Ischemia, Sodium retaining drugs, and compensated/treated heart failure. LIPIDS 1 2 3 Most recent to oldest [Reference Range]: 4.62 (12/24/13 4:10 AM) CHD Risk [3.90-5.80] 194 mg/dL (12/24/13 4:10 AM) Chol [<=199 mg/dL] 354 mg/dL *HI* (12/24/13 4:10 AM) Trig [<=149 mg/dL] 42 mg/dL *LOW* (12/24/13 4:10 AM) HDL [>=61 mg/dL] 81 mg/dL (12/24/13 4:10 AM) LDL (Calculated) [<=99 mg/dL] 71 *NA* (12/24/13 4:10 AM) VLDL URINE AND STOOL 1 2 3 Most recent to oldest [Reference Range]: Clear (12/23/13 4:00 PM) UA Turbidity [Clear] Ltyellow *NA* (12/23/13 4:00 PM) UA Color 5.0 (12/23/13 4:00 PM) UA pH [5.0-8.0] 1.011 (12/23/13 4:00 PM) UA Spec Grav [<=1.030] Negative mg/dL *NA* (12/23/13 4:00 PM) UA Glucose [Negative mg/dL] Negative (12/23/13 4:00 PM) UA Blood [Negative] Negative mg/dL *NA* (12/23/13 4:00 PM) UA Ketones [Negative mg/dL] Negative mg/dL (12/23/13 4:00 PM) UA Protein [Negative mg/dL] <=1.0 mg/dL *NA* (12/23/13 4:00 PM) UA Urobilinogen [0.1-1.0 mg/dL] Negative *NA* (12/23/13 4:00 PM) UA Bili [Negative] Moderate *ABN* (12/23/13 4:00 PM) UA Leuk Est [Negative] Negative (12/23/13 4:00 PM) UA Nitrite [Negative] 6 /HPF *HI* (12/23/13 4:00 PM) UA WBC [0-5 /HPF] 1 /HPF (12/23/13 4:00 PM) UA RBC [0-2 /HPF] Occasional /LPF *NA* (12/23/13 4:00 PM) UA Sq Epi [Few /LPF] HEMATOLOGY 1 2 3 Most recent to oldest [Reference Range]: 7.2 K/CMM (12/23/13 11:38 AM) WBC [3.7-10.4 K/CMM] 5.45 M/CMM *HI* (12/23/13 11:38 AM) RBC [4.20-5.40 M/CMM] 13.3 g/dL (12/23/13 11:38 AM) Hgb [12.0-16.0 g/dL] 41.6 % (12/23/13 11:38 AM) Hct [36.0-48.0 %] 76.4 fL *LOW* (12/23/13 11:38 AM) MCV [80.0-98.0 fL] 24.3 pg *LOW* (12/23/13 11:38 AM) MCH [27.0-31.0 pg] 31.9 g/dL *LOW* (12/23/13 11:38 AM) MCHC [32.0-36.0 g/dL] 15.4 % *HI* (12/23/13 11:38 AM) RDW [11.5-14.5 %] 248 K/CMM (12/23/13 11:38 AM) Platelet [133-450 K/CMM] 10.5 fL *HI* (12/23/13 11:38 AM) MPV [7.4-10.4 fL] 65.4 % (12/23/13 11:38 AM) Segs [45.0-75.0 %] 25.4 % (12/23/13 11:38 AM) Lymphocytes [20.0-40.0 %] 5.8 % (12/23/13 11:38 AM) Monocytes [2.0-12.0 %] 2.5 % (12/23/13 11:38 AM) Eosinophils [0.0-4.0 %] 0.9 % (12/23/13 11:38 AM) Basophils [0.0-1.0 %] 4.7 K/CMM (12/23/13 11:38 AM) Segs-Bands # [1.5-8.1 K/CMM] 1.8 K/CMM (12/23/13 11:38 AM) Lymphocytes # [1.0-5.5 K/CMM] 0.4 K/CMM (12/23/13 11:38 AM) Monocytes # [0.0-0.8 K/CMM] 0.2 K/CMM (12/23/13 11:38 AM) Eosinophils # [0.0-0.5 K/CMM] 0.1 K/CMM (12/23/13 11:38 AM) Basophils # [0.0-0.2 K/CMM] 1+ *ABN* (12/23/13 11:38 AM) Microcyte [None Seen] 12.5 seconds (12/23/13 11:38 AM) PT [12.0-14.7 seconds] 0.94 4 (12/23/13 11:38 AM) INR [0.85-1.17] 0.33 ug/mL FEU 5 *NA* (12/23/13 3:20 PM) D-Dimer 30.0 seconds 6 (12/23/13 11:38 AM) PTT [22.9-35.8 seconds] 4Interpretive Data: RECOMMENDED RANGES FOR PROTIME INR: [...] Heparin Therapeutic Range: 57 - 92 Seconds Medications Administered During Your Visit No data available for this section Immunizations Vaccine Date Refusal Reason tetanus toxoid 08/10/11 Social History Social History Type Response Smoking Status Never smoker, Exposure to Tobacco Smoke None, Cigarette Smoking Last 365 Days No, Reg Smoking Cessation Counseling No Assessment and Plan Extracted from: Title: Clinical Document Author: Rey Gandara MD Date: 12/24/13 Diagnosis: Chest pain f/u 2 weeks meds: see reconciliation diet: low fat, DM diet activity: as tolerated
--- OUTSIDE RECORDS SUMMARY | 2018-07-03 10:21 | XMS REPORT ---
Author Author [facility] Address Unknown Phone Unavailable Care Team Providers Care Architectural Job Captain Name Role Phone OSCAR AG Unavailable Unavailable Ankita NEWMAN Unavailable Unavailable Tab Ornelas Unavailable Unavailable Sampson LUNA Unavailable Unavailable Problems This patient has no known problems. Allergies, Adverse Reactions, Alerts This patient has no known allergies or adverse reactions. Medications This patient has no known medications. Encounters Start Date/Time End Date/Time Encounter Type Admission Type Attending [facility] Care Facility Care Department Encounter ID 2017-01-29 09:14:00 2017-01-29 09:14:00 Outpatient David Ornelas SWMARVIN [id number] Results Test Description Test Time Test Comments Text Results Atomic Results Result Comments POCT-GLUCOSE METER 2018-03-06 11:51:00 POC-GLUCOSE METER (BEAKER) (test [id number]) 124 mg/dL 70-110 TESTED AT [facility] [address] [facility] [address] [address] BRAIN [facility] [address] [address] Patient Name: GHANSHYAM TAYLOR MR #: [id number] : 1950 Age/Sex: 66/F Req #: [id number] Adm Physician: Ordered by: YANET COATS BLOCK AND CASE MAKER Report #: [id number] Location: ER Room/Bed: Procedure: [id number] CT/CT BRAIN WO Exam Date: 0 06/25/17 Exam Time: 1450 REPORT STATUS: Signed EXAMINATION: Head CT HISTORY: Headache, hypertension, dizziness, lighthe adedness, unsteady gait for the last month COMPARISON: Head CT on 10/30/2016 and brain MRI on 01/26/2015 TECHNIQUE: Multidetector axial images were obtained without contrast from the foramen magnum to the vertex . The images were cassia nstructed using brain and bone algorithms. Thin section brain images were ref ormatted into coronal and sagittal planes. Intravenous contrast: None. Mo tion/streaking artifact limits the evaluation of the skull base and posterior cranial fossa. FINDINGS: Parenchyma: 1. Unchanged small chron ic lacunar infarct in the right head/body of the caudate nucleus. Otherwise no abnormal density in the brain parenchyma. 2. No mass or hemorrhage. No CT ev idence of acute territorial vascular insult. Extra-axial spaces :No abnormal density. No extra-axial fluid collections Brain volume: Nor mal for age. Ventricles: No hydrocephalus or displacement. Shalini sharon: No density suggestive of thrombus. Dural sinuses: No abnormal dens ity. Extra-axial spaces: No abnormal density. Foramen magnum: No mass, Chiari malformation, or basilar invagination. Sella: No obvious m ass. Paranasal/mastoid sinuses: Imaged portions unremarkable. S kull/Scalp: No lytic or blastic lesions. No fractures. IMPRESSION: 1 . No acute intracranial hemorrhage or cortical infarcts. 2. Unchanged sma ll chronic lacunar infarct in the right basal ganglia. Signed by: Dr. Nancy Willams M.D. on 06/25/2017 3:14 PM Dictated By: NANCY WILLAMS MD Electronic[employer] Signed By: NANCY WILLAMS MD on 06/25/17 1514 Transcribed By: BRYANT on 06/25 1518 COPY TO: YANET COATS NP CT ABDOMEN/PELVIS WO [place] [address] Patient Name: GHANSHYAM TAYLOR MR #: [id number] : 0 1950 Age/Sex: 66/F Req #: [id number] Adm Physician: Ordered by: MELIA SCHULTZ MD Report #: [id number] Location: ER Ro om/Bed: Procedure: [id number] CT/CT ABDOMEN/PELVIS WO Exam Date: 01/22/17 Exam Time: 2114 REPORT STA TUS: Signed EXAM: CT ABDOMEN AND PELVIS without IV CONTRAST DATE: 01/22/2017 7:38 PM Time stamp on Exam: 2125 hrs INDICATION: Left lower quadrant pain COMPARISON: February 05, 2016 CT of the abdomen and pelvis without IV contrast. TECHNIQUE: The abdomen and pelvis were scanned using a multidetector helical scanner. Coronal and sagittal reformations were obtained. Routine protocol p erformed. IV Contrast: None Oral Contrast: Gastrografin CTDIvol has been r eviewed. It is below the limits set by the Radiation Protocol Committee (RPC). FINDINGS: LOWER THORAX: No consolidations LIVER: No masses BILIAR Y: The gallbladder has been removed. No ductal dilation. SPLEEN: No masses PANCREAS: No masses ADRENALS: No nodules KIDNEYS: No nephroureterolith iasis or hydronephrosis. GI TRACT: No distention, wall thickening or eviden ce of obstruction. Scattered colonic diverticuli without evidence of diverticu litis. Normal appendix. VESSELS: Unremarkable PERITONEUM/RETROPERITONEUM: No free air or fluid LYMPH NODES: No lymphadenopathy REPRODUCTIVE ORGANS: The uterus has been removed. Normal appearance of the right ovary. Nonspecific 3.2 x 2.1 cm left ovarian cyst. BLADDER: Decompressed SOFT TISSUES: Un remarkable BONES: No suspicious bone lesions. IMPRESSION: No nephrouret erolithiasis. Scattered colonic diverticuli without evidence of diverticuli tis. Nonspecific 3.2 cm left ovarian cyst. Signed by: Dr. William evans M.D. on 01/22/2017 10:13 PM Dictated By: WILLIAM AGUILAR MD [facility] Signed By: WILLIAM AGUILAR MD on 01/22/172212 Transcribed By: BRYANT on 01/22/172212 COPY TO: MELIA SCHULTZ MD
--- OUTSIDE RECORDS SUMMARY | 2018-07-03 10:21 | XMS REPORT | Summary of Care ---
Author Organization Unknown Address Unknown Phone Unavailable Encounter AYE Yun(DONNY) [id number] Date(s): 07/16/14 - 07/16/14 [facility] [address] [place] [address]- Discharge Diagnosis: Acute headache Discharge Diagnosis: Acute foot pain Discharge Diagnosis: Facial numbness Discharge Diagnosis: Pain of right thumb Discharge Diagnosis: Hypertension Discharge Disposition: Home Physician Attending: Kasie Pineda DO Vital Signs 1 2 3 Most recent to oldest [Reference Range]: 162.56 cm (07/16/14 3:22 PM) Height 98.1 DegF (07/16/14 10:42 PM) 99.7 DegF *HI* (07/16/14 8:39 PM) 98.3 DegF (07/16/14 7:46 PM) Temperature Oral [96.4-99.1 DegF] 148/79 mmHg *HI* (07/16/14 10:42 PM) 184/76 mmHg *HI* (07/16/14 9:20 PM) 193/79 mmHg *HI* (07/16/14 8:39 PM) Blood Pressure [90-140/60-90 mmHg] 16 BRMIN (07/16/14 10:42 PM) 18 BRMIN (07/16/14 9:20 PM) 18 BRMIN (07/16/14 8:39 PM) Respiratory Rate [14-20 BRMIN] 84 bpm (07/16/14 10:42 PM) 86 bpm (07/16/14 9:20 PM) 82 bpm (07/16/14 8:39 PM) Peripheral Pulse Rate [60-100 bpm] 88.636 kg (07/16/14 3:22 PM) Weight 33.54 m2 (07/16/14 3:22 PM) Body Mass Index Problem List Condition [...] hallucinations as per Doreen in ER Medications Benadryl 12.5 mg, 0.25 mL, Route: IVP, Drug form: INJ, ONCE, Dosing Weight 88.636, kg, Pr iority: STAT, Start date: 07/16/14 20:59:00, Stop date: 07/16/14 20:59:00 Notes: (Same as: Benadryl) Start Date: 07/16/14 Stop Date: 07/16/14 Status: Completed ketOROLAC 30 mg, Route: IVP, Drug form: INJ, ONCE, Dosing Weight 88.636, kg, Priority: STA T, Start date: 07/16/14 22:40:00, Stop date: 07/16/14 22:40:00 Start Date: 07/16/14 Stop Date: 07/16/14 Status: Completed Reglan 10 mg, 2 mL, Route: IVP, Drug form: INJ, ONCE, Dosing Weight 88.636, kg, Priorit y: STAT, Start date: 07/16/14 20:59:00, Stop date: 07/16/14 20:59:00 Notes: (Same as: Reglan) Start Date: 07/16/14 Stop Date: 07/16/14 Status: Completed Results ELECTROLYTES Most recent to 1 oldest [Reference Range]: Sodium Lvl [135-145 139 mEq/L mEq/L] (07/16/14 7:56 PM) Potassium Lvl 4.2 mEq/L [3.5-5.1 mEq/L] (07/16/14 7:56 PM) Chloride Lvl [95-109 104 mEq/L mEq/L] (07/16/14 7:56 PM) CO2 [24-32 mEq/L] 28 mEq/L (07/16/14 7:56 PM) AGAP [10.0-20.0 11.2 mEq/L mEq/L] (07/16/14 7:56 PM) CHEM PANEL Most recent to 1 oldest [Reference Range]: Creatinine Lvl 1.1 mg/dL [0.5-1.4 mg/dL] (07/16/14 7:56 PM) eGFR 62 mL/min/1.73m2 1 *NA* (07/16/14 7:56 PM) BUN [7-22 mg/dL] 19 mg/dL (07/16/14 7:56 PM) B/C Ratio [6-25] 17 (07/16/14 7:56 PM) Glucose Lvl [70-99 215 mg/dL 2 mg/dL] *HI* (07/16/14 7:56 PM) Total Protein 8.5 g/dL [6.4-8.4 g/dL] *HI* (07/16/14 7:56 PM) Albumin Lvl [3.5-5.0 4.0 g/dL g/dL] (07/16/14 7:56 PM) Globulin [2.0-4.0 4.5 g/dL g/dL] *HI* (07/16/14 7:56 PM) A/G Ratio [0.7-1.6] 0.9 (07/16/14 7:56 PM) Calcium Lvl 9.3 mg/dL [8.5-10.5 mg/dL] (07/16/14 7:56 PM) ALT [0-65 unit/L] 24 unit/L (07/16/14 7:56 PM) AST [0-37 unit/L] 16 unit/L (07/16/14 7:56 PM) Alk Phos [39-136 134 unit/L unit/L] (07/16/14 7:56 PM) Bili Total [0.2-1.3 0.4 mg/dL mg/dL] (07/16/14 7:56 PM) 1Result Comment: The eGFR is calculated using [...] values reflect the clinical guidelines of the [place] [employer]. CARDIAC ENZYMES Most recent to 1 oldest [Reference Range]: Total CK [12-191 160 unit/L unit/L] (07/16/14 7:56 PM) CK MB [0.5-3.6 0.9 ng/mL ng/mL] (07/16/14 7:56 PM) CK MB Index 0.6 [0.0-2.5] (07/16/14 7:56 PM) Troponin-I <0.02 ng/mL [0.00-0.40 ng/mL] (07/16/14 7:56 PM) HEMATOLOGY Most recent to 1 oldest [Reference Range]: WBC [3.7-10.4 K/CMM] 8.4 K/CMM (07/16/14 7:56 PM) RBC [4.20-5.40 5.36 M/CMM M/CMM] (07/16/14 7:56 PM) Hgb [12.0-16.0 g/dL] 13.2 g/dL (07/16/14 7:56 PM) Hct [36.0-48.0 %] 40.2 % (07/16/14 7:56 PM) MCV [80.0-98.0 fL] 75.0 fL *LOW* (07/16/14 7:56 PM) MCH [27.0-31.0 pg] 24.6 pg *LOW* (07/16/14 7:56 PM) MCHC [32.0-36.0 32.8 g/dL g/dL] (07/16/14 7:56 PM) RDW [11.5-14.5 %] 15.8 % *HI* (07/16/14 7:56 PM) Platelet [133-450 238 K/CMM K/CMM] (07/16/14 7:56 PM) MPV [7.4-10.4 fL] 9.3 fL (07/16/14 7:56 PM) Segs [45.0-75.0 %] 58.4 % (07/16/14 7:56 PM) Lymphocytes 28.6 % [20.0-40.0 %] (07/16/14 7:56 PM) Monocytes [2.0-12.0 8.7 % %] (07/16/14 7:56 PM) Eosinophils [0.0-4.0 2.6 % %] (07/16/14 7:56 PM) Basophils [0.0-1.0 1.7 % %] *HI* (07/16/14 7:56 PM) Segs-Bands # 4.9 K/CMM [1.5-8.1 K/CMM] (07/16/14 7:56 PM) Lymphocytes # 2.4 K/CMM [1.0-5.5 K/CMM] (07/16/14 7:56 PM) Monocytes # [0.0-0.8 0.7 K/CMM K/CMM] (07/16/14 7:56 PM) Eosinophils # 0.2 K/CMM [0.0-0.5 K/CMM] (07/16/14 7:56 PM) Basophils # [0.0-0.2 0.1 K/CMM K/CMM] (07/16/14 7:56 PM) Microcyte [None 1+ Seen] *ABN* (07/16/14 7:56 PM) PT [12.0-14.7 11.7 seconds seconds] *LOW* (07/16/14 7:56 PM) INR [0.85-1.17] 0.86 3 (07/16/14 7:56 PM) PTT [22.9-35.8 30.6 seconds 4 seconds] (07/16/14 7:56 PM) 3Interpretive Data: RECOMMENDED RANGES FOR PROTIME INR: 2.0-3.0 for most medical and surgical thromboembolic states. 2.5-3.5 for artificial heart valves and recurrent embolism. INR SHOULD BE USED ONLY FOR PATIENTS ON STABLE ANTICOAGULANT THERAPY. 4Interpretive Data: Heparin Therapeutic Range: 57 - 92 Seconds Immunizations Vaccine Date Refusal Reason tetanus toxoid 08/10/11 Procedures Procedure Date Related Diagnosis Body Site Arm repair 07/21/12 Abdominal hysterectomy Breast lumpectomy Cholecystectomy Social History Social History Type Response Smoking Status Never smoker; Exposure to Tobacco Smoke None; Cigarette Smoking Last 365 Days No; Reg Smoking Cessation Counseling No Assessment and Plan No data available for this section
--- OUTSIDE RECORDS SUMMARY | 2018-07-03 10:21 | XMS REPORT | Summary of Care ---
Author Organization Unknown Address Unknown Phone Unavailable Encounter AYE Yun(DONNY) [id number] Date(s): 07/19/14 - 07/20/14 [facility] [address] [place] [address]- [phone] Discharge Diagnosis: Dizziness Discharge Diagnosis: Hypertension Discharge Disposition: Home Physician Attending: Shaggy Kim MD Vital Signs 1 2 3 Most recent to oldest [Reference Range]: 97.9 DegF (07/20/14 3:14 AM) 98.7 DegF (07/19/14 8:36 PM) Temperature Oral [96.4-99.1 DegF] 149/71 mmHg *HI* (07/20/14 3:14 AM) 146/73 mmHg *HI* (07/20/14 2:25 AM) 167/74 mmHg *HI* (07/20/14 1:13 AM) Blood Pressure [90-140/60-90 mmHg] 17 BRMIN (07/20/14 3:14 AM) 17 BRMIN (07/20/14 2:25 AM) 20 BRMIN (07/20/14 1:13 AM) Respiratory Rate [14-20 BRMIN] 90 bpm (07/20/14 12:08 AM) 105 bpm *HI* (07/19/14 8:36 PM) Peripheral Pulse Rate [60-100 bpm] 88.182 kg (07/19/14 8:36 PM) Weight Problem List Condition Effective Dates Status Health [...] as per Doreen in ER Medications Benadryl 25 mg, Route: IVP, ONCE, Dosing Weight 88.182, kg, Priority: STAT, Start date: 0 07/19/14 23:45:00, Stop date: 07/19/14 23:45:00 Start Date: 07/19/14 Stop Date: 07/20/14 Status: Completed dexamethasone 10 mg, Route: IVP, ONCE, Dosing Weight 88.182, kg, Priority: STAT, Start date: 0 07/19/14 23:45:00, Stop date: 07/19/14 23:45:00 Start Date: 07/19/14 Stop Date: 07/20/14 Status: Completed magnesium sulfate 2 gm, 50 mL, Route: IVPB, Drug form: INJ, ONCE, Dosing Weight 88.182, kg, Total dose=2 gm, Start date: 07/19/14 23:45:00, Duration: 1 doses or times, Stop date: 07/19/14 23:45:00 Start Date: 07/19/14 Stop Date: 07/20/14 Status: Completed Reglan 10 mg, Route: IVP, Drug form: INJ, ONCE, Dosing Weight 88.182, kg, Priority: STA T, Start date: 07/19/14 23:45:00, Stop date: 07/19/14 23:45:00 Start Date: 07/19/14 Stop Date: 07/20/14 Status: Completed Results ELECTROLYTES Most recent to 1 oldest [Reference Range]: Sodium Lvl [135-145 136 mEq/L mEq/L] (07/20/14 12:00 AM) Potassium Lvl 3.6 mEq/L [3.5-5.1 mEq/L] (07/20/14 12:00 AM) Chloride Lvl [95-109 100 mEq/L mEq/L] (07/20/14 12:00 AM) CO2 [24-32 mEq/L] 28 mEq/L (07/20/14 12:00 AM) AGAP [10.0-20.0 11.6 mEq/L mEq/L] (07/20/14 12:00 AM) CHEM PANEL Most recent to 1 oldest [Reference Range]: Creatinine Lvl 1.0 mg/dL [0.5-1.4 mg/dL] (07/20/14 12:00 AM) eGFR 70 mL/min/1.73m2 1 *NA* (07/20/14 12:00 AM) BUN [7-22 mg/dL] 19 mg/dL (07/20/14 12:00 AM) B/C Ratio [6-25] 19 (07/20/14 12:00 AM) Glucose Lvl [70-99 150 mg/dL 2 mg/dL] *HI* (07/20/14:00 AM) Total Protein 8.4 g/dL [6.4-8.4 g/dL] (07/20/14 12:00 AM) Albumin Lvl [3.5-5.0 3.8 g/dL g/dL] (07/20/14 12:00 AM) Globulin [2.0-4.0 4.6 g/dL g/dL] *HI* (07/20/14 12:00 AM) A/G Ratio [0.7-1.6] 0.8 (07/20/14 12:00 AM) Calcium Lvl 9.3 mg/dL [8.5-10.5 mg/dL] (07/20/14 12:00 AM) ALT [0-65 unit/L] 22 unit/L (07/20/14 12:00 AM) AST [0-37 unit/L] 12 unit/L (07/20/14 12:00 AM) Alk Phos [39-136 136 unit/L unit/L] (07/20/14 12:00 AM) Bili Total [0.2-1.3 0.5 mg/dL mg/dL] (07/20/14 12:00 AM) Lipase Lvl [73-393 163 unit/L unit/L] (07/20/14 12:00 AM) 1Result Comment: The eGFR is calculated using [...] values reflect the clinical guidelines of the [place] [employer]. CARDIAC ENZYMES Most recent to 1 oldest [Reference Range]: CK MB [0.5-3.6 1.3 ng/mL ng/mL] (07/20/14 12:00 AM) Troponin-I <0.02 ng/mL [0.00-0.40 ng/mL] (07/20/14 12:00 AM) HEMATOLOGY Most recent to 1 oldest [Reference Range]: WBC [3.7-10.4 K/CMM] 10.2 K/CMM (07/20/14 12:00 AM) RBC [4.20-5.40 5.25 M/CMM M/CMM] (07/20/14 12:00 AM) Hgb [12.0-16.0 g/dL] 12.9 g/dL (07/20/14 12:00 AM) Hct [36.0-48.0 %] 39.0 % (07/20/14 12:00 AM) MCV [80.0-98.0 fL] 74.3 fL *LOW* (07/20/14 12:00 AM) MCH [27.0-31.0 pg] 24.5 pg *LOW* (07/20/14:00 AM) MCHC [32.0-36.0 33.0 g/dL g/dL] (07/20/14 12:00 AM) RDW [11.5-14.5 %] 15.6 % *HI* (07/20/14 12:00 AM) Platelet [133-450 270 K/CMM K/CMM] (07/20/14 12:00 AM) MPV [7.4-10.4 fL] 9.1 fL (07/20/14 12:00 AM) Segs [45.0-75.0 %] 60.8 % (07/20/14 12:00 AM) Lymphocytes 25.7 % [20.0-40.0 %] (07/20/14 12:00 AM) Monocytes [2.0-12.0 9.2 % %] (07/20/14 12:00 AM) Eosinophils [0.0-4.0 2.4 % %] (07/20/14 12:00 AM) Basophils [0.0-1.0 1.9 % %] *HI* (07/20/14 12:00 AM) Segs-Bands # 6.2 K/CMM [1.5-8.1 K/CMM] (07/20/14 12:00 AM) Lymphocytes # 2.6 K/CMM [1.0-5.5 K/CMM] (07/20/14 12:00 AM) Monocytes # [0.0-0.8 0.9 K/CMM K/CMM] *HI* (07/20/14 12:00 AM) Eosinophils # 0.2 K/CMM [0.0-0.5 K/CMM] (07/20/14 12:00 AM) Basophils # [0.0-0.2 0.2 K/CMM K/CMM] (07/20/14 12:00 AM) Microcyte [None 1+ Seen] *ABN* (07/20/14 12:00 AM) PT [12.0-14.7 12.5 seconds seconds] (07/20/14 12:00 AM) INR [0.85-1.17] 0.94 3 (07/20/14 12:00 AM) PTT [22.9-35.8 32.3 seconds 4 seconds] (07/20/14 12:00 AM) 3Interpretive Data: RECOMMENDED RANGES FOR PROTIME INR: [...]
--- OUTSIDE RECORDS SUMMARY | 2018-07-03 10:21 | XMS REPORT | Summary of Care ---
Author Author [facility] Outpatient Imaging [facility] Outpatient Imaging [facility] Address Unknown Phone Unavailable Encounter HQ Jama(FIN) [id number] Date(s): 11/28/15 - 11/28/15 [facility] Outpatient Imaging [facility] [address], [address] [place] [phone] Discharge Disposition: Home or Self Care Attending Physician: Radames Gilbert DO Vital Signs No data available for this section Problem List Condition Effective Dates Status Health [...] hallucinations as per Doreen in ER Medications No data available for this section Results No data available for this section Immunizations Given and Recorded Vaccine Date Status Refusal Reason tetanus toxoid 08/10/11 Given Procedures Procedure Date Related Diagnosis Body Site Arm repair 07/21/12 Abdominal hysterectomy Breast lumpectomy Cholecystectomy Social History Social History Type Response Smoking Status Never smoker; Exposure to Tobacco Smoke None; Cigarette Smoking Last 365 Days No; Reg Smoking Cessation Counseling No Assessment and Plan No data available for this section
--- OUTSIDE RECORDS SUMMARY | 2018-07-03 10:21 | XMS REPORT | Summary of Care ---
Author Author [facility] Organization [facility] Address Unknown Phone Unavailable Encounter AYE Yun(DONNY) [id number] Date(s): 11/26/14 - 11/27/14 [facility] [address] [place] [address]- [phone] Discharge Diagnosis: Acute sinus infection Discharge Diagnosis: Headache Discharge Disposition: Home Attending Physician: Kiko Castillo MD Vital Signs 1 2 3 Most recent to oldest [Reference Range]: 162.56 cm (11/26/14 7:48 PM) Height 1 2 3 Most recent to oldest [Reference Range]: 98.6 DegF (11/27/14 2:07 AM) 98.7 DegF (11/26/14 11:00 PM) 99 DegF (11/26/14 7:48 PM) Temperature Oral [96.4-99.1 DegF] 1 2 3 Most recent to oldest [Reference Range]: 158/80 mmHg *HI* (11/27/14 2:07 AM) 173/76 mmHg *HI* (11/26/14 11:00 PM) 157/79 mmHg *HI* (11/26/14 7:48 PM) Blood Pressure [90-140/60-90 mmHg] 1 2 3 Most recent to oldest [Reference Range]: 20 BRMIN (11/26/14 11:00 PM) 18 BRMIN (11/26/14 7:48 PM) Respiratory Rate [14-20 BRMIN] 1 2 3 Most recent to oldest [Reference Range]: 80 bpm (11/27/14 2:07 AM) 79 bpm (11/26/14 11:00 PM) 84 bpm (11/26/14 7:48 PM) Peripheral Pulse Rate [60-100 bpm] 1 2 3 Most recent to oldest [Reference Range]: 93.182 kg (11/26/14 7:48 PM) Weight 1 2 3 Most recent to oldest [Reference Range]: 35.26 m2 (11/26/14 7:48 PM) Body Mass Index Problem List Condition [...] hallucinations as per Doreen in ER Medications Azithromycin 5 Day Dose Pack 250 mg oral tablet See Instructions, Take 2 tablets by mouth the first day then 1 tablet by mouth d ays 2-5., X 5 day, # 6 tab, 0 Refill(s) Special Instructions: Take 2 tablets by mouth the first day then 1 tablet by freddie th days 2-5. Start Date: 11/27/14 Stop Date: 12/02/14 Status: Ordered Reglan 10 mg, Route: IVP, Drug form: INJ, ONCE, Dosing Weight 93.182, kg, Priority: STA T, Start date: 11/26/14 22:12:00, Stop date: 11/26/14 22:12:00 Start Date: 11/26/14 Stop Date: 11/26/14 Status: Completed Sodium Chloride 0.9% (Bolus) IV 500 mL, 500 ml/hr, Infuse Over: 1 Hour, Route: IV, ONCE, Priority: STAT, Dosing Weight 93.182 kg, Start date: 11/26/14 22:12:00, Duration: 1 doses or times, Sto p date: 11/26/14 22:12:00 Start Date: 11/26/14 Stop Date: 11/26/14 Status: Completed Results ELECTROLYTES Most recent to 1 oldest [Reference Range]: Sodium Lvl [135-145 143 mEq/L mEq/L] (11/26/14 11:18 PM) Potassium Lvl 3.6 mEq/L [3.5-5.1 mEq/L] (11/26/14 11:18 PM) Chloride Lvl [95-109 106 mEq/L mEq/L] (11/26/14 11:18 PM) CO2 [24-32 mEq/L] 30 mEq/L (11/26/14:18 PM) AGAP [10.0-20.0 10.6 mEq/L mEq/L] (11/26/14:18 PM) CHEM PANEL Most recent to 1 oldest [Reference Range]: Creatinine Lvl 1.0 mg/dL [0.5-1.4 mg/dL] (11/26/14:18 PM) eGFR 69 mL/min/1.73m2 1 *NA* (11/26/14:18 PM) BUN [7-22 mg/dL] 16 mg/dL (11/26/14:18 PM) B/C Ratio [6-25] 16 (11/26/14:18 PM) Glucose Lvl [70-99 129 mg/dL mg/dL] *HI* (11/26/14:18 PM) Total Protein 7.1 g/dL [6.4-8.4 g/dL] (11/26/14:18 PM) Albumin Lvl [3.5-5.0 3.4 g/dL g/dL] *LOW* (11/26/14:18 PM) Globulin [2.0-4.0 3.7 g/dL g/dL] (11/26/14 1118 PM) A/G Ratio [0.7-1.6] 0.9 (11/26/14 11:18 PM) Calcium Lvl 8.7 mg/dL [8.5-10.5 mg/dL] (11/26/14:18 PM) ALT [0-65 unit/L] 26 unit/L (11/26/14 11:18 PM) AST [0-37 unit/L] 13 unit/L (11/26/14 11:18 PM) Alk Phos [39-136 105 unit/L unit/L] (11/26/14:18 PM) Bili Total [0.2-1.3 0.7 mg/dL mg/dL] (11/26/1418 PM) 1Result Comment: The eGFR is calculated [...] be mul tiplied by the estimated BMI. HEMATOLOGY Most recent to 1 oldest [Reference Range]: WBC [3.7-10.4 K/CMM] 8.1 K/CMM (11/26/14:18 PM) RBC [4.20-5.40 4.78 M/CMM M/CMM] (11/26/14:18 PM) Hgb [12.0-16.0 g/dL] 11.7 g/dL *LOW* (11/26/1418 PM) Hct [36.0-48.0 %] 36.2 % (11/26/14:18 PM) MCV [80.0-98.0 fL] 75.7 fL *LOW* (11/26/14:18 PM) MCH [27.0-31.0 pg] 24.5 pg *LOW* (11/26/14:18 PM) MCHC [32.0-36.0 32.3 g/dL g/dL] (11/26/14:18 PM) RDW [11.5-14.5 %] 14.9 % *HI* (11/26/14:18 PM) Platelet [133-450 211 K/CMM K/CMM] (11/26/14 11:18 PM) MPV [7.4-10.4 fL] 8.8 fL (8/7/15 11:18 PM) Segs [45.0-75.0 %] 61.8 % (11/26/14 11:18 PM) Lymphocytes 27.3 % [20.0-40.0 %] (11/26/14 11:18 PM) Monocytes [2.0-12.0 6.9 % %] (11/26/14 11:18 PM) Eosinophils [0.0-4.0 2.8 % %] (11/26/14 11:18 PM) Basophils [0.0-1.0 1.2 % %] *HI* (11/26/14 11:18 PM) Segs-Bands # 5.0 K/CMM [1.5-8.1 K/CMM] (11/26/14 11:18 PM) Lymphocytes # 2.2 K/CMM [1.0-5.5 K/CMM] (11/26/14 11:18 PM) Monocytes # [0.0-0.8 0.6 K/CMM K/CMM] (11/26/14 11:18 PM) Eosinophils # 0.2 K/CMM [0.0-0.5 K/CMM] (11/26/14 11:18 PM) Basophils # [0.0-0.2 0.1 K/CMM K/CMM] (11/26/14 11:18 PM) Microcyte [None 1+ Seen] *ABN* (11/26/14 11:18 PM) Plt Morph Normal (11/26/14 11:18 PM) PT [12.0-14.7 13.0 seconds seconds] (11/26/14 11:18 PM) INR [0.85-1.17] 0.98 (11/26/14 11:18 PM) Immunizations Vaccine Date Refusal Reason tetanus toxoid [...]
[2018-07-03 11:08] LABS: BASOPHILS % 0.3 % (0.0-1.0); EOSINOPHILS # (AUTO) 0.3 (0.0-0.4); EOSINOPHILS % 2.8 % (0.0-6.0); HEMATOCRIT 40.9 % (34.2-44.1); HEMOGLOBIN 12.8 g/dL (12.0-16.0); LYMPHOCYTES # (AUTO) 2.2 (1.0-3.2); LYMPHOCYTES % 25.1 % (18.0-39.1); MEAN CORPUSCULAR HEMOGLOBIN 24.3 pg (28-32); MEAN CORPUSCULAR HGB CONC 31.3 g/dL (31-35); MEAN CORPUSCULAR VOLUME 77.8 fL (81-99); MONOCYTES # (AUTO) 0.6 (0.2-0.8); MONOCYTES % 7.1 % (4.4-11.3); NEUTROPHILS # (AUTO) 5.7 (2.1-6.9); NEUTROPHILS % 64.3 % (38.7-80.0); PLATELET COUNT 250 x10e3/uL (140-360); RED BLOOD COUNT 5.26 x10e6/uL (3.6-5.1); RED CELL DISTRIBUTION WIDTH 15.2 % (11.7-14.4)
[2018-07-03 11:33] LABS: COLOR,URINE YELLOW (YELLOW)
[2018-07-03 11:34] LABS: BILIRUBIN,URINE NEGATIVE (NEGATIVE); CLARITY,URINE CLEAR (CLEAR); KETONES,URINE NEGATIVE (NEGATIVE); LEUKOCYTE ESTERASE ,URINE NEGATIVE (NEGATIVE); NITRITE,URINE NEGATIVE (NEGATIVE); PROTEIN,URINE DIPSTICK NEGATIVE (NEGATIVE); URINE UROBILINOGEN 0.2 mg/dL (0.2 - 1)
[2018-07-03 11:37] LABS: ALBUMIN 3.5 g/dL (3.5-5.0); ALBUMIN/GLOBULIN RATIO 0.9 (0.8-2.0); ANION GAP 15.5 mmol/L (8-16); CALCIUM 9.1 mg/dL (8.4-10.2); CREATININE, SERUM 1.19 mg/dL (0.57-1.11); MAGNESIUM 2.4 MG/DL (1.3-2.1); POTASSIUM 3.5 mmol/L (3.5-5.1)
[2018-07-03 11:38] LABS: INR 0.87; PROTHROMBIN TIME 12.3 seconds (11.9-14.5)
[2018-07-03 11:39] LABS: PARTIAL THROMBOPLASTIN TIME 30.1 seconds (23.8-35.5)
[2018-07-03 11:43] LABS: BACTERIA,URINE MANY /HPF; EPITHELIAL CELLS,URINE MANY /LPF
[2018-07-03 11:45] LABS: CREATINE KINASE MB 1.7 ng/mL (0-5.0)
--- NOTE | 2018-07-03 11:48 | Diagnostic Imaging Report ---
EXAMINATION: CHEST 2 VIEWS INDICATION: Chest pain. COMPARISON: Chest radiograph 10/30/16 report, images not available for review at the time of this dictation. FINDINGS: TUBES and LINES: None. LUNGS: Lungs are well inflated. Lungs are clear. There is no evidence of pneumonia or pulmonary edema. PLEURA: No pleural effusion or pneumothorax. HEART AND MEDIASTINUM: The cardiomediastinal silhouette is unremarkable. BONES AND SOFT TISSUES: No acute osseous lesion. Soft tissues are unremarkable. UPPER ABDOMEN: No free air under the diaphragm. IMPRESSION: No acute radiographic abnormality. Signed by: Dr. Kevin Larios MD on 07/03/2018 11:44 AM
[2018-07-03] MEDS ORDERED: CYCLOBENZAPRINE10 MG PO (13:48)
[2018-07-03] MEDS ORDERED: TRADJENTA5 MG PO (13:48)
[2018-07-03] MEDS ORDERED: VERAPAMIL ER120 MG PO (13:48)
[2018-07-03] MEDS ORDERED: INSPRA50 MG PO (13:48)
[2018-07-03] MEDS ORDERED: METOPROLOL TART50 MG PO (13:48)
--- NOTE | 2018-07-03 14:13 | Diagnostic Imaging Report ---
EXAM: CT Abdomen and Pelvis WITHOUT contrast INDICATION: Right abdominal pain COMPARISON: CT abdomen/pelvis, 01/22/2017 TECHNIQUE: Abdomen and pelvis were scanned utilizing a multidetector helical scanner from the lung base to the pubic symphysis without administration of IV contrast. Absence of intravenous contrast decreases sensitivity for detection of focal lesions and vascular pathology. Coronal and sagittal reformations were obtained. Routine protocol was performed. Dose modulation, iterative reconstruction, and/or weight based adjustment of the mA/kV was utilized to reduce the radiation dose to as low as reasonably achievable. IV CONTRAST: None. ORAL CONTRAST: 900 cc Redicat RADIATION DOSE: Total DLP: 760.33 mGy*cm Estimated effective dose: (DLP x 0.015 x size factor) mSv COMPLICATIONS: None FINDINGS: LINES and TUBES: None. LOWER THORAX: Lung bases clear. Heart size normal. HEPATOBILIARY: No focal hepatic lesions. No biliary ductal dilation. GALLBLADDER: Surgical absence of the gallbladder with cholecystectomy clips. SPLEEN: No splenomegaly. PANCREAS: No focal masses or ductal dilatation. ADRENALS: No adrenal nodules KIDNEYS/URETERS: No hydronephrosis. No cystic or solid mass lesions. No stones. GI TRACT: No abnormal distention, wall thickening, or evidence of bowel obstruction. Sigmoid diverticula with no CT evidence for acute diverticulitis. The proximal appendix normal, measuring 6 mm, and contains air with no wall thickening. The appendiceal tip is bulbous, measuring 9 mm. There is no surrounding fluid collection or free air, and the configuration is unchanged from previous exam. PELVIC ORGANS/BLADDER: Urinary bladder unremarkable. Uterus surgically absent. A 3.3 cm cyst is seen in the left adnexa and a 3.4 cm cyst is seen in the right adnexa. There are densities, possible surgical clips, adjacent to each of these cysts. LYMPH NODES: No dominant lymph node mass is seen in the abdomen, retroperitoneum or pelvis. VESSELS: Unenhanced abdominal aorta shows no aneurysm. Scattered calcified plaques are seen. PERITONEUM / RETROPERITONEUM: No pneumoperitoneum or ascites. BONES: No acute or suspicious bony lesions. Degenerative changes are seen in the lumbar spine. SOFT TISSUES: Superficial surrounding soft tissue unremarkable. IMPRESSION: 1. The proximal appendix contains air without inflammation. While the appendiceal tip has a slightly dilated bulbous configuration measuring 9 mm diameter, the appearance is unchanged from the previous exam. There is no overt evidence for acute appendicitis. 2. No urinary tract calculus 3. Bilateral ovarian cysts. 4. Scattered colonic diverticuli with no CT evidence for diverticulitis. Staff: Kaylie Signed by: Dr. Heron Lott M.D. on 07/03/2018 2:09 PM
[2018-07-03] MEDS ORDERED: BACTRIM DS TAB1 EACH PO (14:44)
[2018-07-03 15:07] VITALS: BP 130/58
== END 2018-07-03 15:31 | disposition home or self-care (01) ==
LOC: ER 10:13
DX: R10.31 Right lower quadrant pain (principal); R11.0 Nausea; E11.65 Type 2 diabetes mellitus with hyperglycemia; I10 Essential (primary) hypertension; E78.5 Hyperlipidemia, unspecified; J44.9 Chronic obstructive pulmonary disease, unspecified; Z85.3 Personal history of malignant neoplasm of breast
CPT/HCPCS: 36415; 71046; 74176; 80053; 81001; 82150; 82550; 82553; 83690; 83735; 83880; 84484; 85025; 85610; 85730; 87086; 93005; 99284

== ENCOUNTER 2019-07-01 17:54 | Emergency (ER) | payer OTHER ==
[~2019-07-01] VITALS: Ht 162.6 cm; Wt 93.9 kg
[~2019-07-01 17:54] MED LIST changes: +BACTRIM DS TAB1 EACH PO; +CYCLOBENZAPRINE10 MG PO; +INSPRA50 MG PO; +METOPROLOL TART50 MG PO
--- OUTSIDE RECORDS SUMMARY | 2019-07-01 17:58 | XMS REPORT | Summary of Care ---
Author Author [facility] Organization [facility] Address Unknown Phone Unavailable Care Team Providers Care Hospital Security Officer Name Role Phone Bree Thurston MD PCP Unavailable Reason for Visit * Reason Comments Eye Problem Encounter Details Care Team Description Date Type Department Mati Ann MD [address] [place] [address] Eye Problem 06/03/2019 Office Visit [facility] Ophthalmology [address] [place] [id number] Allergies Comments Active Allergy Reactions Severity Noted Date Ambien 06/11/2012 Codeine Phosphate 08/29/2010 [place] Doron 06/11/2012 Hallucinations. Influenza Vaccines Hives 06/17/2014 hives Iodinated Diagnostic 08/15/2017 Agents I.V. Dye 08/29/2010 Oxycodone-Aspirin 08/29/2010 Hives. Toradol 03/16/2013 Dulaglutide 03/01/2016 documented as of this encounter (statuses as of 06/03/2019) Medications End Date Status Medication Sig Dispensed Refills Start Date Active NOVOLOG FLEXPEN 100 0 UNIT/ML SOPN 4 Active B-D UF III MINI PEN 0 NEEDLES 31G X 5 MM MISC 4 Active Insulin Degludec (TRESIBA Inject into 0 FLEXTOUCH) 100 UNIT/ML the skin. SOPNIndications: Essential hypertension, benign, Mixed hyperlipidemia, Palpitations Active [id number]-[id number] Ethyl Esters Take 2 mg by 120 Each 3 (LOVAZA) 1 G CAPS mouth two 8 times daily. Additional Information Patient not taking. Reason: Other / Enter Comment, Reported on 12/31/2018 12:24 PM Active hydrOXYzine (ATARAX) 25 Take 1 Tab by 60 Tab 0 MG tablet mouth nightly 8 as needed for Itching (or sleep). Additional Information Patient not taking. Reason: Other / Enter Comment, Reported on 12/31/2018 12:24 PM Active TRADJENTA 5 MG TABS Take 5 mg by 2 mouth 8 nightly. Active DiphenhydrAMINE HCl Take 25 mg by 0 (BENADRYL OR) mouth daily. Active fluticasone (FLONASE) 50 0 MCG/ACT nasal spray 8 Active albuterol (PROVENTIL HFA) Inhale 1-2 0 108 (90 base) mcg/act Puffs by inhaler mouth every 6 hours as needed for Wheezing. Active cefdinir (OMNICEF) 300 MG 0 capsule 8 Active hydrochlorothiazide Take 1 Tab by 90 Tab 3 (HYDRODIURIL) 50 MG mouth daily. 8 tabletIndications: Essential hypertension, benign Active trimethoprim-polymyxin b Place 1 Drop 10 mL 0 (POLYTRIM) ophthalmic into both 8 solutionIndications: eyes four Conjunctivochalasis of times daily. both eyes Additional Information Patient not taking. Reason: Discontinued by other provider, Reported on 11/26/2018 4:10 PM Active fluorometholone (FML) 0.1 Place 1 Drop 5 mL 1 % ophthalmic into the 9 suspensionIndications: right eye Conjunctival granuloma of four times right eye daily. Additional Information Patient not taking. Reason: Discontinued by other provider, Reported on 11/26/2018 4:10 PM Active bacitracin ophthalmic Instill 04/25 1 Tube 1 ointmentIndications: inch strip of 9 Conjunctival granuloma of ointment right eye inside right eye at bedtime for 2 weeks. Additional Information Patient not taking. Reason: Discontinued by other provider, Reported on 11/26/2018 4:10 PM Active metoprolol (TOPROL-XL) 50 Take 1 Tab by 90 Tab 1 MG XL tabletIndications: mouth daily. 9 Essential hypertension Active Eplerenone 50 MG Take 1 Tab by 90 Each 1 TABSIndications: mouth daily. 9 Essential hypertension Active atorvastatin (LIPITOR) 20 TAKE 1 TABLET 1 MG tablet BY MOUTH ONCE 9 DAILY Active olopatadine HCl (PATADAY) Place 1 Drop 2.5 mL 6 0.2 % ophthalmic solution into both 9 eyes daily as needed (itching / allergy). Additional Information Patient not taking. Reason: Other / Enter Comment, Reported on 12/31/2018 12:24 PM Active fluorometholone (FML) 0.1 Place 1 Drop 5 mL 2 % ophthalmic suspension into both 9 eyes nightly as needed. Additional Information Patient not taking. Reason: Other / Enter Comment, Reported on 12/31/2018 12:24 PM Active Melatonin 5 MG TABS Take 3 mg by 0 mouth daily. Active Vitamin E 400 units TABS Take 1 Tab by 0 mouth daily. Active candesartan (ATACAND) 16 Take 1 Tab by 30 Tab 6 MG tabletIndications: mouth daily. 9 Essential hypertension, benign Active montelukast (SINGULAIR) Take 10 mg by 0 10 MG tablet mouth daily. Active Mometasone by Inhalation 0 Furo-Formoterol Fum route. (DULERA) 100-5 MCG/ACT AERO Active Fexofenadine HCl (LATASHA Take by 0 OR) mouth. Active ASPIRIN 81 OR Take 81 mg by 0 mouth daily. Active Ranolazine 1000 MG TB12 Take 1,000 mg 0 by mouth two times daily. Active Multiple Take by 0 Vitamins-Minerals mouth. (CENTRUM SILVER OR) Active Cholecalciferol (VITAMIN Take by 0 D3 OR) mouth. Active duloxetine (CYMBALTA) 30 Take 30 mg by 0 MG capsule mouth daily. Active gabapentin (NEURONTIN) Take 600 mg 0 600 MG tablet by mouth nightly. Active insulin detemir (LEVEMIR) Inject into 0 100 UNIT/ML injection the skin nightly. Active Letrozole 2.5 MG TABS Take 2.5 mg 0 by mouth daily. Active diltiazem (DILACOR XR) Take 1 Cap by 60 Cap 4 240 MG XR capsule mouth daily. 9 Active cycloSPORINE (RESTASIS) Place 1 Drop 60 Each 6 0.05 % ophthalmic into both 0 emulsion eyes two times daily. 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 (HCCode) Chest pain, unspecified 01/16/2016 TIA (transient ischemic attack) 01/16/2016 Insomnia 03/06/2012 Arm pain 03/06/2012 RSI (repetitive strain injury) 10/09/2011 Cellulitis of chest wall 08/01/2011 Overview: At chemotherapy port site Open wound of chest wall without complication 07/23/2011 Urticaria 07/20/2011 Angioedema 07/20/2011 Neutropenia, unspecified (HCCode) 07/16/2011 Peripheral autonomic neuropathy in disorders classified elsewhere(337.1) 07/12/2011 Breast cancer (HCCode) 04/26/2011 Mixed hyperlipidemia 11/06/2010 Asthma 09/29/2010 Diabetes mellitus, type II (HCCode) 08/29/2010 Essential hypertension, benign 08/29/2010 documented as of this encounter (statuses as of 06/03/2019) Social History Date Tobacco Use Types Packs/Day Years Used Never Smoker Smokeless Tobacco: Never Used Drinks/Week oz/Week Comments Alcohol Use rarely No Sex Assigned at Date Recorded Not on file Industry Job Start Date Occupation Not on file Not on file Not on file Travel End Travel History Travel Start No recent travel history available. documented as of this encounter Last Filed Vital Signs Not on filedocumented in this encounter Patient Instructions * Patient Instructions* Mati Ann MD - 06/03/2019 3:40 PM NETWORKING TECHNOLOGY INSTRUCTOR STUDY/STUDIES: none ASSESSMENT: 1. Dry eye - PLAN: No outpatient medications have been marked as taking for the 06/03/19 encounter ( Office Visit) with Mati Ann MD. No orders of the defined types were placed in this encounter. - Give single vision readers Restasis 2x per day if no burning from sample Call if no improvement in 3 mos - Return to clinic in 6 months ATTESTATIONS: I have personally interviewed and examined the patient and reviewed the PMH, SH, FHX, ROS, MEDS, ALLERGIES and TECH NOTE, and have updated the computerized pedro pablo ent record appropriately. The PMH, SOCIAL HISTORY and FH were non-contributory t o this visit. The risks, benefits, and alternatives of treatment were discussed with the patie nt (& family, if present). All questions regarding diagnosis and treatment were answered to the patient's satisfaction. ORKING TECHNOLOGY INSTRUCTOR documented in this encounter Progress Notes * Mati Ann MD - 06/03/2019 3:40 PM NETWORKING TECHNOLOGY INSTRUCTOR STUDY/STUDIES: none ASSESSMENT: 1. Dry eye - PLAN: No outpatient medications have been marked as taking for the 06/03/19 encounter ( Office Visit) with Mati Ann MD. No orders of the defined types were placed in this encounter. - Give single vision readers Restasis 2x per day if no burning from sample Call if no improvement in 3 mos - Return to clinic in 6 months ATTESTATIONS: I have personally interviewed and examined the patient and reviewed the PMH, SH, FHX, ROS, MEDS, ALLERGIES and TECH NOTE, and have updated the computerized pedro pablo ent record appropriately. The PMH, SOCIAL HISTORY and FH were non-contributory t o this visit. The risks, benefits, and alternatives of treatment were discussed with the patie nt (& family, if present). All questions regarding diagnosis and treatment were answered to the patient's satisfaction. ORKING TECHNOLOGY INSTRUCTOR documented in this encounter Plan of Treatment Care Team Description Date Type Specialty 08/10/2019 Ancillary Radiology Procedure Delfino Tanner MD [address] [facility] 7th [address], [address] [place] [address] 08/10/2019 Office Visit Breast Care Health Maintenance Due Date Last Done Comments COLON CANCER SCREENIN1951 COLONOSCOPY TETANUS SHOT (ADULT) 07/23/1966 ANNUAL DIABETIC FOOT EXAM 07/23/1969 BMI FOLLOW UP PLAN 07/23/1969 FALL SCREEN 07/23/2016 OSTEOPOROSIS SCREENING 07/23/2016 06/16/2014 PNEUMOVAX >=65 (PPSV23) 07/23/2016 PREVNAR >=65 (PCV13) 07/23/2016 FLU VACCINE > 6 MONTHS 11/20/2018 MAMMOGRAM ANNUAL 2019 07/23/2018, 08/05/2017, 07/26/2016, Additional history exists ANNUAL DIABETIC 11/27/2019 11/26/2018, 01/02/2017, 04/11/2016 RETINOPATHY SCREENING HEPATITIS C SCREENING Completed 07/20/2011 documented as of this encounter Results Not on filedocumented in this encounter Visit Diagnoses Diagnosis Dry eye - Primary documented in this encounter Insurance Type Payer Benefit Subscriber ID Effective Phone Address Plan / Dates Group PPO [facility] PREMIUM xxxxxxxxx 2017-P [address] - [facility] resent [id number] [place] [address] documented as of this encounter
--- NOTE | 2019-07-01 19:42 | Diagnostic Imaging Report ---
CT BRAIN WO HISTORY: Trauma COMPARISON: Head CT 06/25/2017 TECHNIQUE: CT of the head was performed without the administration of intravenous contrast. Coronal/sagittal reformations were created. One or more of the following dose reduction techniques were used: Automated exposure control, adjustment of the mA and/or kV according to patient size, and/or utilization of iterative reconstruction technique. DISCUSSION: Scalp/Skull: No abnormalities. Brain sulci: Appropriate for patient's age. Ventricles: Normal in size and configuration. No hydrocephalus. Extra-axial spaces: No masses or fluid collections. Mild carotid siphon calcifications are present. Parenchyma: There is an old right caudate head lacunar infarct. No mass, hemorrhage, or large vascular territory acute infarct. Dural sinuses: No abnormal densities. Sellar/Suprasellar region: Intact. Skull base: Intact. Incidental findings: Mild opacification of the left posterior ethmoid air cells and left sphenoid sinus. IMPRESSION: 1. No acute intracranial abnormalities. 2. 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 Signed by: Dr. Chuy Rowe M.D. on 07/01/2019 7:38 PM
--- NOTE | 2019-07-01 23:56 | Diagnostic Imaging Report ---
Exam: AP radiograph of the pelvis-1 view; left hip radiographs-2 views; left knee radiographs-3 views; left foot radiographs-3 views Clinical History: Fell in tub. Comparison: None. Findings: There is mild widening between the bases of the first and second metatarsal, measuring up to 3 mm. Mild offset between the base of the first metatarsal and medial cuneiform. There is soft tissue edema throughout the foot and hindfoot, most pronounced medially. Possible irregularity at the medial malleolus with surrounding soft tissue edema in the ankle. Mild degenerative changes of bilateral hips. Mild degenerative changes in the medial and patellofemoral compartments of the left knee. No suprapatellar joint effusion. Impression: Findings suggestive of age indeterminant Lisfranc ligamentous injury without associated fracture demonstrated. Soft tissue edema in the foot. Suggest clinical correlation. Possible irregularity in the medial malleolus with surrounding soft tissue edema. Recommend ankle radiographs for further evaluation. No acute osseous abnormality in the pelvis, left hip, or left knee. Signed by: Dr. Kevin Larios MD on 07/01/2019 11:53 PM
--- NOTE | 2019-07-02 01:48 | Diagnostic Imaging Report ---
Exam: Left ankle radiographs-3 views History: Fall. Comparison: None. Findings/Impression: No evidence of acute fracture or malalignment. Well-corticated bony fragment adjacent to the medial malleolus, suggestive of remote trauma. The ankle mortise is preserved. Soft tissue edema within the ankle, most pronounced laterally. Plantar calcaneal spur. Signed by: Dr. Kevin Larios MD on 07/02/2019 1:45 AM
== END 2019-07-02 01:46 | disposition home or self-care (01) ==
LOC: ER 17:54
DX: S93.622A Sprain of tarsometatarsal ligament of left foot, initial encounter (principal); S93.525A Sprain of metatarsophalangeal joint of left lesser toe(s), initial encounter; I10 Essential (primary) hypertension; E11.9 Type 2 diabetes mellitus without complications; J44.9 Chronic obstructive pulmonary disease, unspecified; I25.10 Atherosclerotic heart disease of native coronary artery without angina pectoris; Z85.3 Personal history of malignant neoplasm of breast; E78.5 Hyperlipidemia, unspecified; W18.2XXA Fall in (into) shower or empty bathtub, initial encounter; Y93.E1 Activity, personal bathing and showering; Y92.002 Bathroom of unspecified non-institutional (private) residence as the place of occurrence of the external cause; Z79.4 Long term (current) use of insulin
CPT/HCPCS: 70450; 99283

== ENCOUNTER 2019-09-25 22:03 | Emergency (ER) | payer OTHER ==
[~2019-09-25] VITALS: Ht 162.6 cm; Wt 93.9 kg
--- OUTSIDE RECORDS SUMMARY | 2019-09-25 22:06 | XMS REPORT ---
Author Author GHANSHYAM CASTILLO Organization Unknown Address Unknown Phone Care Team Providers Care Adjunct Communications Faculty Member Name Role Phone JONATHANBRUNO BrownleeCE PP Unavailable Reason for Referral No Reason for Referral was given. History of Present Illness No HPI available. 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 (Active) * Metoprolol Succinate ER 25 MG Oral Tablet Extended Release 24 Hour; TAKE 1 TABLET DAILY.; Start Date: 05/08/2012 (Active) * Pen [place] 3/16" 31G X 5 MM Miscellaneous; 1 a day; Start Date: 08/09/2012 (Active) * Lunesta 3 MG Oral Tablet; Start Date: 08/09/2012 (Active) * Levemir FlexPen 100 UNIT/ML Subcutaneous Solution; INJECT 22 units nightly; may self titrate up to 50 unist daily; Start Date: 07/04/2012 (Active) * Janumet XR 50-1000 MG Oral Tablet Extended Release 24 Hour; 2 a day; Start Date: 08/09/2012 (Active) * Letrozole 2.5 MG Oral Tablet; TAKE 1 TABLET DAILY.; Start Date: 05/08/2012 (Active) * TraMADol HCl 50 MG Oral Tablet; TAKE 1 TABLET PRN; Start Date: 05/08/2012 (Active) * Benadryl Allergy 25 MG Oral Tablet; TAKE 1 TABLET EVERY 6 HOURS NEEDED.; Start Date: 05/08/2012 (Active) * Citalopram Hydrobromide 20 MG Oral Tablet; TAKE 1 TABLET DAILY.; Start Date: 05/08/2012 (Active) * Meloxicam 7.5 MG Oral Tablet; TAKE 1 TO 2 TABLETS DAILY.; Start Date: 05/08/2012 (Active) * BD Pen Needle Mini U/F 31G X 5 MM Miscellaneous; 1 a day; Start Date: 08/28/2012 (Active) Allergies and Adverse Reactions * Codeine Derivatives (Active) * Hydrocodone-Acetaminophen TABS (Active) * Ambien TABS (Active) * Iodine SOLN (Active) * Percodan TABS (Active) * Adhesive Tape (Active) * Lortab TABS (Active) * Fluzone INJ (Active) Past Medical History * History of Breast Cancer (V10.3); (Resolved) * No History of Coronary Artery Disease (Denied) * No History of Stroke Syndrome (Denied) Procedures Procedure Procedure Date Date Completed Status Breast Surgery Lumpectomy - - Resolv ed Cholecystectomy - - Resolved Hysterectomy - - Resolved Dilation And Curettage - - Resolved Family History * Family history of Diabetes Mellitus (V18.0); (Active) * Family history of Hypertension (V17.49); (Active) Social History * Never A Smoker (Active) * Marital History - Single (Active) * Never Drank Alcohol (Active) Treatment Plan * [QL] MICROALBUMIN, RANDOM URINE (W/CREATININE) 09/05/2012 Routine Advance Directives * No Advance Directives available. Encounters * AUDIT 09/05/2012 * E30, Provider: EDYTA CASTILLO, Status: Rashaad, Time: 2:15 PM 10/21/2012
--- OUTSIDE RECORDS SUMMARY | 2019-09-25 22:06 | XMS REPORT ---
Author Author [facility]AN[facility] CASTILL[facility] Organization Unknown Address Unknown Phone Care Team Providers Care Stock Plan Administrator Name Role Phone JONATHANBRUNO BrownleeCE PP Unavailable Reason for Referral No Reason for Referral was given. History of Present Illness No HPI available. 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 (Active) * Metoprolol Succinate ER 25 MG Oral Tablet Extended Release 24 Hour; TAKE 1 TABLET DAILY.; Start Date: 05/08/2012 (Active) * Levemir FlexPen 100 UNIT/ML Subcutaneous Solution; INJECT 22 units nightly; may self titrate up to 50 unist daily; Start Date: 07/04/2012 (Active) * Pen [place] 3/16" 31G X 5 MM Miscellaneous; 1 a day; Start Date: 08/09/2012 (Active) * Janumet XR 50-1000 MG Oral Tablet Extended Release 24 Hour; 2 a day; Start Date: 08/09/2012 (Active) * Lunesta 3 MG Oral Tablet; Start Date: 08/09/2012 (Active) * TraMADol HCl 50 MG Oral [...] TABLETS DAILY.; Start Date: 05/08/2012 (Active) * Letrozole 2.5 MG Oral Tablet; TAKE 1 TABLET DAILY.; Start Date: 05/08/2012 (Active) * BD [...] Procedures Procedure Procedure Date Date Completed Status Cholecystectomy - - Resolved Hysterectomy - - Resolved Dilation And Curettage - - Resolved Breast Surgery Lumpectomy - - [facility] ed Family History * Family history of Hypertension (V17.49); (Active) * Family history of Diabetes Mellitus (V18.0); (Active) Social History * Never Drank Alcohol (Active) * Marital History - Single (Active) * Never A Smoker (Active) Advance Directives * No Advance Directives available. Encounters * AUDIT 09/09/2012 * E30, Provider: EDYTA CASTILLO, Status: Rashaad, Time: 2:15 PM 10/21/2012
--- OUTSIDE RECORDS SUMMARY | 2019-09-25 22:06 | XMS REPORT | Continuity of Care Document ---
Author Author [facility] Organization [employer] Address Unknown Phone Unavailable Care Team Providers Care Personnel Counselor Name Role Phone [employer] [facility] Unavailable Un available Problems Problem Status Onset Date Classification Date Reported Comments Source Hypertension Active 09/09/2012 [facility] Asthma Active 09/09/2012 [facility] Urinary Tract Infection Active 09/09/2012 [facility] Type 2 Diabetes Mellitus - Uncomplicated, Uncontrolled Active 09/09/2012 [facility] Mixed Hyperlipoproteinemia Act ricardo 09/09/2012 [facility] Medications Medication Details Route Status Patient Instructions Ordering Provider Order Date Source BD Pen Needle Mini U/F 31G X 5 MM Miscellaneous ; Start Date: 08/28/2012 (Active) Active 08/28/2012 [facility] Pen [place] 3/16" 31G X 5 MM Miscellaneous ; Start Date: 08/09/2012 (Active) Active 08/09/2012 [facility] Janumet XR 50-1000 MG Oral Tablet Extend ed Release 24 Hour ; Start Date: 08/09/2012 (Active) Active 08/09/2012 [facility] Lunesta 3 MG Oral Tablet ; Sta rt Date: 08/09/2012 (Active) Active 08/09/2012 [facility] Levemir FlexPen 100 UNIT/ML Subcutaneous Solution ; Start Date: 07/04/2012 (Active) Active 07/04/2012 [facility] Gabapentin 300 MG Oral Capsule ; Start Date: 05/08/2012 (Active) Active 05/08/2012 [facility] Letrozole 2.5 MG Oral Tablet ; Start Date: 05/08/2012 (Active) Active 05/08/2012 [facility] TraMADol HCl 50 MG Oral Tablet ; Start Date: 05/08/2012 (Active) Active 05/08/2012 [facility] Benadryl Allergy 25 MG Oral Tablet ; Start Date: 05/08/2012 (Active) Active 05/08/2012 [facility] Citalopram Hydrobromide 20 MG Oral Tablet ; Start Date: 05/08/2012 (Active) Active 05/08/2012 [facility] Meloxicam 7.5 MG Oral Tablet ; Start Date: 05/08/2012 (Active) Active 05/08/2012 [facility] PredniSONE 20 MG Oral Tablet ; Start Date: 05/08/2012 (Active) Active 05/08/2012 [facility] Restoril 15 MG Oral Capsule ; Start Date: 05/08/2012 (Active) Active 05/08/2012 [facility] Cefdinir 300 MG Oral Capsule ; Start Date: 05/08/2012 (Active) Active 05/08/2012 [facility] Metoprolol Succinate ER 25 MG Oral Table t Extended Release 24 Hour ; Start Date: 05/08/2012 (Active) Active 05/08/2012 [facility] Marco 5-20 MG Oral Tablet (Act ricardo) Active [facility] Allergies, Adverse Reactions, Alerts Substance Category Reaction Severity Reaction type Status Date Reported Comments Source Codeine Derivatives drug aller gy drug aller gy Active [facility] Hydrocodone-Acetaminophen TABS drug allergy drug aller gy Active [facility] Ambien TABS drug allergy drug allergy Active [facility] Iodine SOLN drug allergy drug allergy Active [facility] Percodan TABS drug allergy drug allergy Active [facility] Lortab TABS drug allergy drug allergy Active [facility] Fluzone INJ drug allergy drug allergy Active [facility] Immunizations No Data Provided for This Section Results No Data Provided for This Section Pathology Reports No Data Provided for This Section Diagnostic Reports No Data Provided for This Section Consultation Notes No Data Provided for This Section Discharge Summaries No Data Provided for This Section History and Physicals No Data Provided for This Section Vital Signs No Data Provided for This Section Encounters Location Location Details Encounter Type Encounter Number Reason For Visit Attending Provider ADM Date DC Date Status Source AUDIT [id number] 05/08/2012 05/09/2012 [facility] AUDIT [id number] 06/06/2012 06/06/2012 [facility] EST, Provi aster: MARIFER BERNABE, Status: Pen, Time: 1:45 PM [id number] 06/28/19 13 06/06/2012 [facility] CLARKE Provi aster: FRANCESCA BECK, Status: Pen, Time: 2:00 PM [id number] 06/28/19 13 06/06/2012 [facility] AUDIT [id number] 08/29/2012 08/29/2012 [facility] AUDIT [id number] 09/05/2012 09/06/2012 [facility] AUDIT [id number] 09/09/2012 09/09/2012 [facility] E30, Provi aster: EDYTA CASTILLO, Status: Pen, Time: 2:15 PM [id number] 10/22/19 13 09/09/2012 [facility] Procedures No Data Provided for This Section Assessment and Plan No Data Provided for This Section Plan of Care Plan of Care Date Source [QLH] MICROALBUMIN, RANDOM URINE (W/CREA TININE) 09/05/2012 Routine 09/06/2012 [facility] Social History Social History Date Source Never Drank Alcohol (Active) Marital History - Single (Active) Never A Smoker (Active) 09/09/2012 [facility] Family History Value Date [place] Family history of Hypertension (V17.49); (Active) Family history of Diabetes Mellitus (V18.0); (Active) 09/09/2012 [facility] Family history of Diabetes Mellitus (V18 .0); (Active) Family history of Hypertension (V17.49); (Active) 09/06/2012 [facility] Family history of Hypertension (V17.49); (Active) Family history of Diabetes Mellitus (V18.0); (Active) 08/29/2012 [facility] Advance Directives Order Name Results Value Date Source Advance Directives Advance Dir ectives No Advance Directives available. 09/09/2012 [facility] Advance Directives Advance Dir ectives No Advance Directives available. 09/06/2012 [facility] Advance Directives Advance Dir ectives No Advance Directives available. 08/29/2012 [facility] Advance Directives Advance Dir ectives No Advance Directives available. 06/06/2012 [facility] Advance Directives Advance Dir ectives No Advance Directives available. 05/09/2012 [facility] Functional Status No Data Provided for This Section
--- OUTSIDE RECORDS SUMMARY | 2019-09-25 22:06 | XMS REPORT | Clinical Summary ---
Author Author [facility] Address Unknown Phone Unavailable Care Team Providers Care Svp Monetization Name Role Phone Mikal Shaver PCP Allergies Comments Active Allergy Reactions Severity Noted Date hallucinations Zolpidem Rash High 09/10/2014 hallucinates Codeine Rash High 09/10/2014 Hydrocortisone Rash High 09/10/2014 Influenza Virus Vaccines Hives High 09/10 Iodine And Iodide Hives High 09/10/2014 Containing Products Letrozole Analogues Itching 01/31/2019 Oxycodone Rash High 09/10/2014 Oxycodone 12/28/2015 Mda-Wwlhtetrn-Klp Ketorolac Hives High 09/10/2014 Whole arm swells up Tuberculin Ppd High 09/10/2014 Cetirizine Rash High 09/10/2014 Medications End Date Status Medication Sig Dispensed Refills Start Date Active FOLIC Take 1 tablet 0 ACID/MULTIVITS-MIN/LUT [...] unit/mL injection Units subcutaneousl y daily. Active DULoxetine (CYMBALTA) 30 Take 30 mg by 0 MG capsuleIndications: mouth diabetic peripheral nightly. neuropathy Active melatonin 3 mg Tab tablet Take by 0 mouth. Active insulin degludec (TRESIBA Inject 0 FLEXTOUCH U-200) 200 subcutaneousl unit/mL (3 mL) InPn y. Active ranolazine (RANEXA) 1,000 Take 1 tablet 60 tablet 0 mg SR tablet (1,000 mg 9 total) by mouth 2 (two) times daily. Active gabapentin (NEURONTIN) Take 1 tablet 30 tablet 0 1 600 MG tablet (600 mg 9 total) by mouth nightly. Active metoprolol (TOPROL-XL) 50 Take 1 tablet 30 tablet 0 MG 24 hr tablet (50 mg total) 9 by mouth daily. Active hydroCHLOROthiazide Take 1 tablet 30 tablet 0 01/20 (HYDRODIURIL) 50 MG (50 mg total) 9 tablet by mouth daily. 02/02/2019 Discontinued gabapentin (NEURONTIN) Take 600 mg 0 600 MG tablet by mouth nightly . 02/02/2019 Discontinued hydrochlorothiazide Take 50 mg by 0 (HYDRODIURIL) 50 MG mouth daily. tablet 01/30/2019 Discontinued verapamil (CALAN-SR) 240 Take 360 mg 0 MG CR tablet by mouth nightly. 02/02/2019 Discontinued isosorbide mononitrate Take 60 mg by 0 (IMDUR) 60 MG 24 hr mouth tablet nightly. 02/02/2019 Discontinued ranolazine (RANEXA) 500 Take 500 mg 0 MG 12 hr tablet by mouth 2 (two) times daily. 02/02/2019 Discontinued metoprolol (TOPROL-XL) 50 Take 50 mg by 0 MG 24 hr tablet mouth daily. 03/05/2019 aspirin 81 MG EC tablet Take 1 tablet 30 tablet 0 (81 mg total) 9 by mouth daily for 30 days. 03/05/2019 amLODIPine (NORVASC) 10 Take 1 tablet 30 tablet 0 02/03/201 MG tablet (10 mg total) 9 by mouth daily for 30 days. Active Problems Problem Noted Date Acute angina 01/30/2019 Chest pain 09/10/2014 Encounters Care Team Description Date Type Specialty Francisco Dudley Jr., MD Tirukkovalluri, Srilakshmi, MD Agrawal, Neeraj, MD Acute angina (HCC) (Primary Dx); Other forms of angina pectoris (HCC); Type 2 diabetes mellitus without complication, unspecified whether fpc insulin use (HCC); Essential hypertension; Diabetes mellitus due to underlying condition with hyperglycemia, with long-term current use of insulin (HCC) 01/30/2019 Hospital Cardiology - Encounter 02/02/2019 01/30/2019 Travel 01/30/2019 Orders Only General Internal Me dicine after 09/24/2018 Social History Date Tobacco Use Types Packs/Day Years Used Never Smoker Smokeless Tobacco: Never Used Alcohol Use Drinks/Week oz/Week Comments No Sex Assigned at Date Recorded Not on file Industry Job Start Date Occupation Not on file Not on file Not on file Travel End Travel History Travel Start No recent travel history available. Last Filed Vital Signs Time Taken Vital Sign Reading 02/02/2019 4:16 PM CDT Blood Pressure 112/51 02/02/2019 4:16 PM CDT Pulse 75 02/02/2019 4:16 PM CDT Temperature 36.3 C (97.4 F) 02/02/2019 4:16 PM CDT Respiratory Rate 19 02/02/2019 4:16 PM CDT Oxygen Saturation 98% - Inhaled Oxygen - Concentration 02/02/2019 8:00 AM CDT Weight 94.1 kg (207 lb 7.3 oz) 01/30/2019 7:33 PM CDT Height 162.6 cm (5' 4") 02/02/2019 8:00 AM CDT Body Mass Index 35.61 Plan of Treatment Not on file Procedures Comments Procedure Name Priority Date/Time Associated Diag nosis RHYTHM STRIP - SCAN 02/09/2019 10:24 AM CDT REPORT OF PROCEDURE - 02/04/2019 ENDOSCOPY SCAN 8:20 AM CDT RHYTHM STRIP - SCAN 02/04/2019 8:20 AM CDT CTA HEART CORONARY WITH Routine 02/02/2019 CALCIUM EVALUATION WITH 1:36 PM CDT FFR BASIC METABOLIC PANEL (7) Routine 02/02/2019 5:31 AM CDT POCT-GLUCOSE METER Routine 02/01/2019 9:14 PM CDT POCT-GLUCOSE METER Routine 02/01/2019 5:09 PM CDT POCT-GLUCOSE METER Routine 02/01/2019 11:38 AM CDT POCT-GLUCOSE METER Routine 02/01/2019 7:15 AM CDT BASIC METABOLIC PANEL (7) Routine 02/01/2019 5:13 AM CDT POCT-GLUCOSE METER Routine 01/31/2019 9:13 PM CDT POCT-GLUCOSE METER Routine 01/31/2019 5:52 PM CDT POCT-GLUCOSE METER Routine 01/31/2019 12:42 PM CDT POCT-GLUCOSE METER Routine 01/31/2019 8:33 AM CDT BASIC METABOLIC PANEL (7) Routine 01/31/2019 5:45 AM CDT LIPID PANEL Routine 01/31/2019 5:45 AM CDT CBC W/PLT COUNT & AUTO Routine 01/31/2019 DIFFERENTIAL 4:45 AM CDT CBC W/PLT COUNT & AUTO Routine 01/31/2019 DIFFERENTIAL 4:45 AM CDT TSH/FREE T4 IF INDICATED Routine 01/31/2019 4:45 AM CDT HEMOGLOBIN A1C Routine 01/31/2019 4:45 AM CDT POCT-GLUCOSE METER Routine 01/30/2019 9:29 PM CDT TROPONIN I Routine 01/30/2019 8:41 PM CDT ECG 12-LEAD Routine 01/30/2019 8:32 PM CDT Procedure Note - Interface, External Ris In - 01/30/2019 8:46 PM CDT Ventricula r Rate 70 BPM Atrial Rate 70 BPM P-R Interval 160 ms QRS Duration 62 ms Q-T Interval 378 ms QTC Calculatio n(Bazett) 408 ms P [place] 49 degrees R [place] 18 degrees T [place] 155 degrees Normal sinus rhythm T wave abnormalit y, consider lateral ischemia Abnormal ECG When compared with ECG of 9 09:42, No significan t change was found ECG 12-LEAD Routine 01/30/2019 8:32 PM CDT POCT-GLUCOSE METER Routine 01/30/2019 6:40 PM CDT ECG 12-LEAD Routine 01/30/2019 3:44 PM CDT TROPONIN I Routine 01/30/2019 3:21 PM CDT POCT-GLUCOSE METER Routine 01/30/2019 2:31 PM CDT CBC W/PLT COUNT & AUTO STAT 01/30/2019 DIFFERENTIAL 10:30 AM CDT PT/APTT STAT 01/30/2019 10:30 AM CDT CBC W/PLT COUNT & AUTO STAT 01/30/2019 DIFFERENTIAL 10:30 AM CDT TROPONIN I STAT 01/30/2019 10:30 AM CDT B-TYPE NATRIURETIC FACTOR STAT 01/30/2019 (BNP) 10:30 AM CDT MAGNESIUM STAT 01/30/2019 10:30 AM CDT BASIC METABOLIC PANEL (7) STAT 01/30/2019 10:30 AM CDT XR CHEST 2 VIEWS STAT 01/30/2019 10:05 AM CDT ECG 12-LEAD Routine 01/30/2019 9:42 AM CDT Procedure Note - Interface, External Ris In - 01/30/2019 10:03 AM CDT Ventricula r Rate 74 BPM Atrial Rate 74 BPM P-R Interval 168 ms QRS Duration 72 ms Q-T Interval 396 ms QTC Calculatio n(Bazett) 439 ms P [place] 60 degrees R [place] 10 degrees T [place] 106 degrees Normal sinus rhythm Left ventricula r hypertroph y with repolariza tion abnormalit y Abnormal ECG When compared with ECG of 6 03:34, Nonspecifi c T wave abnormalit y has replaced inverted T waves in Inferior leads ECG 12-LEAD STAT 01/30/2019 9:42 AM CDT after 09/24/2018 Results * RHYTHM STRIP - SCAN (02/09/2019 10:24 AM CDT) Only the most recent of 2 results within the time period is included. Narrative Performed At This result has an attachment that is n ot available. * EKG-SCANNED (02/04/2019 8:20 AM CDT) Narrative Performed At This result has an attachment that is n ot available. * CTA heart coronary with calcium evaluation with FFR (02/02/2019 1:36 PM CDT) Specimen Narrative Performed At Addendum Begins MOVL REPORT STATUS:A Addendum: February 03, 2019 at 10: 20 a. m. I have reviewed the CT images for this study and I concur with the nonvascular imaging findings as dictate d. The calcification described in the right breast with surrounding hy poattenuation could represent dystrophic calcification, possibly repr esenting to a prior surgery but could be further assessed with mamm ography and possibly a breast ultrasound. Signed: Francisco Saleh MD Report Verified Date/Time: 9 10:25:08 Reading Location: [facility] Reading Room - [facility] 1310.12 Addendum Ends FINAL REPORT CT coronary angiography, January 21 INDICATION: This is a 68 -year old male with chest pain presents for assessment. TECHNIQUE: Spiral acquisition before an d during intravenous contrast administration using a Lottie multidet jaida CT scanner. Multi-planar 3-D volume-rendering reconstruction was performed using an independent workstation interactively b y the interpreting physician as well as the 3-D specialist for optim al visualisation of the coronary anatomy.Consecutive thin s lices (< 1mm) were obtained. High rate is suboptimal, of at least 75 bpm on arrival the CT department. Medication administration: Oral metoprolol 75 mg; IV propranolol1 mg; S/L nitroglyercin 0 mg. Please refer to the contrast sheet scan elieser in the Mobile Ads system for the amount and route of contrast given. This exam was performed according to [facility] departmental dose-optimisation programme, which incl udes automated exposure control, adjustment of the mA and/or kV according to patient size and/or use of iterative reconstruction technique. Dose modulation, iterative reconstruction, and/or weight based adjustment of the mA/kV was utilized to reduce the radiation do se to as low as reasonably achievable. FINDINGS: VASCULAR: The thoracic aorta is normal in course, calibre, contour.No ectasia or aneurysmal dilation is seen. There i s no acute aortic pathology, specifically, there is no dissection, c ontained rupture, and intramural hematoma.The arch vessel branching pattern is normal. The central pulmonary artery is normal in calibre. There is no evidence of central pulmonary artery em bolism. The left ventricle is normal in size. T here is normal atrio-ventricular and ventriculo-arteri alconcordance, and systemic and pulmonary venous return.The per icardium is normal appearance. There is no evidence of pericardial eff usion. Calcium score and high-resolution, ECG synchronized computed tomography of the heart with attention to the coronary arteries was performed. Coronary calcification was a nalyzed using the eLama system software. These are the results of the calcium score evaluation (threshold = 130 HU): LM: = 0 Volume = 0 LAD: = 0 Volume = 0 LCX: =0Volume =0 RCA: = 0 Volume =0 Agatston:= 0 Volume = 0 Reference ranges for calcium scores are provided as follows (Faulkner Clin Proc 1999; 74: 243-252): 0-10: minimal calcium 11-100: mild calcium 101-400 moderate calcium > 400significant calcium The coronary arteries have normal origi ns.The left main coronary artery arises from the left sinus of Va lsalva and give rise to the left anterior descending of the left ci rcumflex arteries in the normal fashion. The right coronary artery arises from the right sinus of Valsalva. Artifact is present, therefore data was reconstructed both in systole end diastole, with a total of 11 data s et. The left main coronary artery is likely unremarkable, where a few from the 80% reconstruction. Part of the proximal LAD has motion art efact identified making assessment limited. Remainder of the pr oximal LAD appears to be unremarkable. Parts of the mid LAD is u nremarkable. Remainder of the mid and distal LAD motion artefact iden tified. The left circumflex artery is also wide ly patent. It gives rise to a first small OM branch and the left circ umflex artery terminates as the second OM branch. The right coronary artery is better see n at 45% reconstruction, was still some minimal motion artefact iden tified. However, no obstructive lesion is seen in the proxi mal, mid, and distal RCA. The left circumflex artery is nondomina nt and is seen to be patent, for example at 35% reconstruction, head javier, accurate assessment is limited with motion artefact present. NON-VASCULAR: The visualised thyroid gland is unremar kable. The chest wall and mediastinum appears unremarkable. No significant adenopathy is identified in the mediast inum. In the lung windows, no endobronchial l esion is seen, and no pleural effusion is identified. Some dependent changes are seen. Overall, no pulmonary nodule is identified. Motion artefact is seen. CT is not optimised in the assessment o f breast structure is. However, this focal calcification ident ified in the left breast, the upper chest series at image 33, measure up to 1.8 x 1.1 cm in diameter, with some peripheral hypodens ity. Significance of this finding is uncertain. In any case, this can be further assessed by examination, an mammography, as the ini tial process. An addendum will be dictated thereafter, if needed. Limited images of the upper abdomen rev eals no gross abnormality. No acute bony pathology is seen except for the presence of some degenerative changes. CONCLUSIONS: 1.Quantitative coronary artery calc ium volume and Agatston score of 0 and 0 , respectively. Images are somewhat noisy, with some mo tion artefact, overall it is interpreted as NEGATIVE for coronary ar violetta calcification. 2.Normal coronary artery origins. Overall inconclusive study due to motio n artefact with suboptimal heart rate on presentation to the CT de partment. By multiphasic reconstruction, the left main coronary artery and the RCA appears to be patent with no obstru ctive lesion identified. The proximal LAD has some motion artefa ct identified despite multiphasic reconstruction. Remainder o f the proximal LAD and part of the mid LAD appears to be unremarkable. Remainder of the the mid and distal LAD has motion artefact identifi ed. The left circumflex artery is nondomina nt and is seen to be patent, for example at 35% reconstruction, head javier, accurate assessment is limited with motion artefact present. The data will be sent for CT analysis, ct-ffr, by an independent third green party vendor. Should the data be accepted for postprocessing, the result would be sent to PACS/Mobile Ads w hen available. However, the data will likely be rejected due to mot ion artefact. If the data is to be rejected, no addendum will be dic tated. 3.No acute pulmonary pathology. No evidence of central pulmonary artery embolism. 4.Normal thoracic aorta. No acute aortic pathology is identified . 5.Other findings as described above , including the left breast finding. 6.The non-vascular findings will be reviewed by the Band Saw Operator Radiologist and addendum will be added as needed. Signed: Suhas Richards MD Report Verified Date/Time: 9 14:31:21 Procedure Note Interface, External Ris In - 02/03/2019 10:27 AM CDT Addendum Begins REPORT STATUS:A Addendum: February 03, 2019 at 10: 20 a.m. I have reviewed the CT images for this study and I concur with the nonvascular imaging findings as dictated. The calcification described in the right breast with surrounding hypoattenuation could represent dystrophic calcification, possibly representing to a prior surgery but could be further assessed with mammography and possibly a breast ultrasound. Signed: Francisco Saleh MD Report Verified Date/Time: 02/03/2019 10:25:08 Reading Location: [facility] Diagnostic Imaging Reading Room - [facility] [phone] Addendum Ends FINAL REPORT CT coronary angiography, 02 February 2019 INDICATION: This is a 68 -year old male with chest pain presents for assessment. TECHNIQUE: Spiral acquisition before and during intravenous contrast administration using a Lottie multidetector CT scanner. Multi-planar 3-D volume-rendering reconstruction was performed using an independent workstation interactively by the interpreting physician as well as the 3-D specialist for optimal visualisation of the coronary anatomy. Consecutive thin slices (< 1mm) were obtained. High rate is suboptimal, of at least 75 bpm on arrival the CT department. Medication administration: Oral metoprolol 75 mg; IV propranolol 1 mg; S/L nitroglyercin 0 mg. Please refer to the contrast sheet scanned in the EPIC system for the amount and route of contrast given. This exam was performed according to our departmental dose-optimisation programme, which includes automated exposure control, adjustment of the mA and/or kV according to patient size and/or use of iterative reconstruction technique. Dose modulation, iterative reconstruction, and/or weight based adjustment of the mA/kV was utilized to reduce the radiation dose to as low as reasonably achievable. FINDINGS: VASCULAR: The thoracic aorta is normal in course, calibre, contour. No ectasia or aneurysmal dilation is seen. There is no acute aortic pathology, specifically, there is no dissection, contained rupture, and intramural hematoma. The arch vessel branching pattern is normal. The central pulmonary artery is normal in calibre. There is no evidence of central pulmonary artery embolism. The left ventricle is normal in size. There is normal atrio-ventricular and ventriculo-arterial concordance, and systemic and pulmonary venous return. The pericardium is normal appearance. There is no evidence of pericardial effusion. Calcium score and high-resolution, ECG synchronized computed tomography of the heart with attention to the coronary arteries was performed. Coronary calcification was analyzed using the Drop Mess[employer] system software. These are the results of the calcium score evaluation (threshold = 130 HU): LM: = 0 Volume = 0 LAD: = 0 Volume = 0 LCX: = 0 Volume = 0 RCA: = 0 Volume = 0 Agatston: = 0 Volume = 0 Reference ranges for calcium scores are provided as follows (Faulkner Clin Proc 1999; 74: 243-252): 0-10: minimal calcium 11-100: mild calcium 101-400 moderate calcium > 400 significant calcium The coronary arteries have normal origins. The left main coronary artery arises from the left sinus of Valsalva and give rise to the left anterior descending of the left circumflex arteries in the normal fashion. The right coronary artery arises from the right sinus of Valsalva. Artifact is present, therefore data was reconstructed both in systole end diastole, with a total of 11 data set. The left main coronary artery is likely unremarkable, where a few from the 80% reconstruction. Part of the proximal LAD has motion artefact identified making assessment limited. Remainder of the proximal LAD appears to be unremarkable. Parts of the mid LAD is unremarkable. Remainder of the mid and distal LAD motion artefact identified. The left circumflex artery is also widely patent. It gives rise to a first small OM branch and the left circumflex artery terminates as the second OM branch. The right coronary artery is better seen at 45% reconstruction, was still some minimal motion artefact identified. However, no obstructive lesion is seen in the proximal, mid, and distal RCA. The left circumflex artery is nondominant and is seen to be patent, for example at 35% reconstruction, however, accurate assessment is limited with motion artefact present. NON-VASCULAR: The visualised thyroid gland is unremarkable. The chest wall and mediastinum appears unremarkable. No significant adenopathy is identified in the mediastinum. In the lung windows, no endobronchial lesion is seen, and no pleural effusion is identified. Some dependent changes are seen. Overall, no pulmonary nodule is identified. Motion artefact is seen. CT is not optimised in the assessment of breast structure is. However, this focal calcification identified in the left breast, the upper chest series at image 33, measure up to 1.8 x 1.1 cm in diameter, with some peripheral hypodensity. Significance of this finding is uncertain. In any case, this can be further assessed by examination, an mammography, as the initial process. An addendum will be dictated thereafter, if needed. Limited images of the upper abdomen reveals no gross abnormality. No acute bony pathology is seen except for the presence of some degenerative changes. CONCLUSIONS: 1. Quantitative coronary artery calcium volume and Agatston score of 0 and 0 , respectively. Images are somewhat noisy, with some motion artefact, overall it is interpreted as NEGATIVE for coronary artery calcification. 2. Normal coronary artery origins. Overall inconclusive study due to motion artefact with suboptimal heart rate on presentation to the CT department. By multiphasic reconstruction, the left main coronary artery and the RCA appears to be patent with no obstructive lesion identified. The proximal LAD has some motion artefact identified despite multiphasic reconstruction. Remainder of the proximal LAD and part of the mid LAD appears to be unremarkable. Remainder of the the mid and distal LAD has motion artefact identified. The left circumflex artery is nondominant and is seen to be patent, for example at 35% reconstruction, however, accurate assessment is limited with motion artefact present. The data will be sent for CT analysis, ct-ffr, by an independent third green party vendor. Should the data be accepted for postprocessing, the result would be sent to PACS/Mobile Ads when available. However, the data will likely be rejected due to motion artefact. If the data is to be rejected, no addendum will be dictated. 3. No acute pulmonary pathology. No evidence of central pulmonary artery embolism. 4. Normal thoracic aorta. No acute aortic pathology is identified. 5. Other findings as described above, i ncluding the left breast finding. 6. The non-vascular findings will be re viewed by the Band Saw Operator Radiologist and addendum will be added as needed. Signed: Suhas Richards MD Report Verified Date/Time: 02/02/2019 14:31:21 Performing Organization Address City/State/[facility] one Number GE RIS * Basic metabolic panel (02/02/2019 5:31 AM CDT) Only the most recent of 4 results within the time period is included. Sodium 135 (L) 136 - 145 meq/L [facility] Potassium 4.2 3.5 - 5.1 meq/L [facility] Chloride 103 98 - 107 meq/L [facility] CO2 24 22 - 29 meq/L [facility] BUN 28 (H) 7 - 21 mg/dL [facility] Creatinine 1.42 (H) 0.57 - 1.25 mg/dL [facility] Glucose 268 (H) 70 - 105 mg/dL [facility] Calcium 9.2 8.4 - 10.2 mg/dL [facility] EGFR 45Comment: ESTIMATED GFR IS mL/min/1.[address] [facility] NOT ACCURATE CREATININE [facility] CLEARANCE IN PREDICTING GLOMERULAR FILTRATION RATE. ESTIMATED GFR IS NOT APPLICABLE FOR DIALYSIS PATIENTS. Specimen Blood Performing Organization Address [facility] one Number [facility] [address] [place] [address] [id number] [facility] * POC-Glucose meter (02/01/2019 9:14 PM CDT) Only the most recent of 11 results within the time period is included. POC-Glucose Meter 96Comment: TESTED AT [facility] 70 - 110 mg/dL [address] [address] [facility] Specimen Blood Performing Organization Address [facility] one Number [address] [facility] * Lipid panel (01/31/2019 5:45 AM CDT) Triglycerides 250 mg/dL [facility] Cholesterol 142 mg/dL [facility] HDL 29 mg/dL [facility] LDL Calculated 63 mg/dL [facility] Specimen Blood Narrative Performed At Triglyceride Reference Range: [facility] Low Risk <150 [facility] [id number] High Risk 200-499 Very High Risk>=500 Cholesterol Reference Range: Low Risk <200 [id number] High Risk>240 HDL Cholesterol Reference Range: Low Risk >=60 High Risk <40 LDL Cholesterol Reference Range: Optimal<100 Near [id number] Very High >=190 Performing Organization Address [facility] one Number [address] [facility] * TSH/Free T4 If Indicated (01/31/2019 4:45 AM CDT) TSH 0.84 0.35 - 4.94 uIU/mL [facility] [facility] Specimen Blood Performing Organization Address [facility]/Zipcode Ph one Number [facility] [address] [place], [place] [address] [facility]ENTER * CBC with platelet count + automated diff (01/31/2019 4:45 AM CDT) Only the most recent of 2 results within the time period is included. WBC 6.6 3.5 - 10.5 K/L [facility] RBC 4.75 3.93 - 5.22 M/L [facility] Hemoglobin 11.4 11.2 - 15.7 GM/DL [facility] Hematocrit 37.7 34.1 - 44.9 % [facility] MCV 79.4 79.4 - 94.8 fL [facility] MCH 24.0 (L) 25.6 - 32.2 pg [facility] MCHC 30.2 (L) 32.2 - 35.5 GM/DL [facility] RDW 15.9 (H) 11.7 - 14.4 % [facility] Platelets 198 150 - 450 K/CU MM [facility] MPV 10.8 9.4 - 12.3 fL [facility] nRBC 0 0 - 0 /100 WBC [facility] % Neutros 53 % [facility] % Lymphs 34 % [facility] % Monos 9 % [facility] % Eos 3 % [facility] % Baso 0 % [facility] # Neutros 3.47 1.56 - 6.13 K/L [facility] # Lymphs 2.25 1.18 - 3.74 K/L [facility] # Monos 0.61 (H) 0.24 - 0.36 K/L [facility] # Eos 0.21 0.04 - 0.36 K/L [facility] # Baso 0.02 0.01 - 0.08 K/L [facility] Immature 0 0 - 1 % [facility] Granulocytes-[facility] Specimen Blood Performing Organization Address City/[facility] Ph one Number [address] [facility] * Hemoglobin A1c (01/31/2019 4:45 AM CDT) Hemoglobin A1C 9.4 (H) 4.3 - 6.1 % [facility] Specimen Blood Performing Organization Address [facility] one Number [place] [address] [facility] * Troponin I (01/30/2019 8:41 PM CDT) Only the most recent of 3 results within the time period is included. Troponin I <0.01 0.00 - 0.03 ng/mL [facility] Specimen Blood Narrative Performed At Troponin I (TnI) levels must be interpreted in the co ntext of the presenting [facility] symptoms and the clinical findings. Elevated TnI leve ls indicate myocardial [facility] damage, but are not specific for ischem ic heart disease. Elevated TnI levels are seen in patients with other cardiac con ditions (including myocarditis and congestive heart failure), and slight T nI elevations occur in patients with other conditions, including sepsis, darien al failure, acidosis, acute neurological disease, and persistent tachyarrhythmia . Performing Organization Address [facility] one Number [address] [facility] * ECG 12 lead (01/30/2019 8:32 PM CDT) Only the most recent of 3 results within the time period is included. Specimen Narrative Performed At Ventricular Rate 70 BPM GE MUSE Atrial Rate 70 BPM P-R Interval 160 ms QRS Duration 62 ms Q-T Interval 378 ms QTC Calculation(Bazett) 408 ms P [place] 49 degrees R [place] 18 degrees T [place] 155 degrees Normal sinus rhythm T wave inversin lateral leads consider postischemic changes Abnormal ECG When compared with ECG of 30-JAN-2019 0 9:42, No significant change was found Confirmed by MD GUEVARA YOCHAI ([id number] ) on 02/02/2019 6:31:22 AM Procedure Note Interface, External Ris In - 02/02/2019 6:31 AM CDT Ventricular Rate 70 BPM Atrial Rate 70 BPM P-R Interval 160 ms QRS Duration 62 ms Q-T Interval 378 ms QTC Calculation(Bazett) 408 ms P [place] 49 degrees R [place] 18 degrees T [place] 155 degrees Normal sinus rhythm T wave inversin lateral leads consider postischemic changes Abnormal ECG When compared with ECG of 30-JAN-2019 09:42, No significant change was found Confirmed by MD GUEVARA YOCHAI ([id number]) on 02/02/2019 6:31:22 AM Performing Organization Address [facility] Ph one Number GE MUSE * PT/aPTT (01/30/2019 10:30 AM CDT) Protime 13.5 11.9 - 14.[address] [facility] INR 1.1 <=5.9 [facility] PTT 28.7 22.5 - 36.[address] [facility] Specimen Blood Narrative Performed At Effective 09/17/2018: PT Reference Range Change [facility] New: 11.9-14.2Previous: 11.7-14.7 [facility] RECOMMENDED COUMADIN/WARFARIN INR THERA PY RANGES STANDARD DOSE: 2.0-3.0Includes: PRO PHYLAXIS for venous thrombosis, systemic embolization; TREATMENT for venous thro mbosis and/or pulmonary embolus. HIGH RISK: Target INR is 2.5-3.5 for pa tients wiht mechanical heart valves. Performing Organization Address [facility] Ph one Number [address] [facility] * B-type Natriuretic Factor (BNP) (01/30/2019 10:30 AM CDT) BNP <10 0 - 100 pg/mL [facility] Specimen Blood Performing Organization Address City/[facility] Ph one Number [facility] [address] [place], [place] [address] [facility] * Magnesium (01/30/2019 10:30 AM CDT) Magnesium 1.7 1.6 - 2.6 mg/dL [facility] Specimen Blood Performing Organization Address [facility] Ph one Number [facility] [address] [place] [address] [address] [facility] * XR chest 2 views (01/30/2019 10:05 AM CDT) Specimen Narrative Performed At FINAL REPORT GE RIS INDICATION: CHEST PAIN COMPARISON: December 28, 2015 TECHNIQUE: Frontal and lateral views of the chest. FINDINGS: Lungs and pleura: Clear lungs. No effus ion. Heart and mediastinum: Normal heart siz e. Unremarkable mediastinal contours. Osseous structures: No acute abnormalit y. Additional findings: None. IMPRESSION: No acute intrathoracic abnormality. Signed: JR Mello Robert MD Report Verified Date/Time: 10:08:24 Reading Location: [facility] operated [facility] Reading Room Procedure Note Interface, External Ris In - 01/30/2019 10:10 AM CDT FINAL REPORT INDICATION: CHEST PAIN COMPARISON: December 28, 2015 TECHNIQUE: Frontal and lateral views of the chest. FINDINGS: Lungs and pleura: Clear lungs. No effusion. Heart and mediastinum: Normal heart size. Unremarkable mediastinal contours. Osseous structures: No acute abnormality. Additional findings: None. IMPRESSION: No acute intrathoracic abnormality. Signed: JR Mello Robert MD Report Verified Date/Time: 01/30/2019 10:08:24 Reading Location: [facility] Radiology Reading Room Performing Organization Address City/State/Zipcode Ph one Number GE RIS after 09/24/2018 Insurance Payer Benefit Subscriber ID Type Phone Address Plan / Group [employer] - MGD UNITED HMO xxxxxxxxx HMO/PO S CARE POS [employer] CHO[employer] [id number] Advance Directives For more information, please contact: [facility] [address] [place] [address] Date Inactivated Comments Code Status Date Activated 02/02/2019 9:30 PM Full Code 01/30/2019 4:46 PM This code status was determined by: Patient 12/29/2015 11:35 PM Full Code 12/28/2015 4:51 PM This code status was determined by: Patient 09/11/2014 1:08 AM Full Code 09/10/2014 4:13 PM This code status was determined by: Patient
--- OUTSIDE RECORDS SUMMARY | 2019-09-25 22:06 | XMS REPORT ---
Author Author GHANSHYAM Jackson Organization Unknown Address Unknown Phone Care Team Providers Care Scaffold Worker Name Role Phone Manuel Bernadette PP Unavailable Reason for Referral No Reason for Referral was given. History of Present Illness No HPI available. 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 (Active) * Metoprolol Succinate ER 25 MG Oral Tablet Extended Release 24 Hour; TAKE 1 TABLET DAILY.; Start Date: 05/08/2012 (Active) * Levemir FlexPen 100 UNIT/ML Subcutaneous Solution; INJECT 22 units nightly; may self titrate up to 50 unist daily; Start Date: 07/04/2012 (Active) * Pen [place] 3/16" 31G X 5 MM Miscellaneous; 1 a day; Start Date: 08/09/2012 (Active) * Janumet XR 50-1000 MG Oral Tablet Extended Release 24 Hour; 2 a day; Start Date: 08/09/2012 (Active) * Lunesta 3 MG Oral Tablet; Start Date: 08/09/2012 (Active) * BD Pen Needle Mini U/F [...] - Resolved Breast Surgery Lumpectomy - - Resolv ed Family History * Family history of Hypertension (V17.49); (Active) * Family history of Diabetes Mellitus (V18.0); (Active) Social History * Never A Smoker (Active) * Never Drank Alcohol (Active) * Marital History - Single (Active) Advance Directives * No Advance Directives available. Encounters * AUDIT 08/29/2012 * E30, Provider: EDYTA CASTILLO, Status: Rashaad, Time: 2:15 PM 10/21/2012
--- OUTSIDE RECORDS SUMMARY | 2019-09-25 22:06 | XMS REPORT ---
Author Author NAYELI Lindsay Organization Unknown Address Unknown Phone Care Team Providers Care Gill Box Tender Name Role Phone Angélica Nayeli PP Unavailable Reason for Referral No Reason for Referral was given. History of Present Illness No HPI available. Problems * Normal Routine History And Physical Adult (V70.0); (Active) * Hypertension (401.9); (Active) Medication * Gabapentin 300 MG Oral Capsule; TAKE 1 CAPSULE 3 TIMES DAILY.; Start Date: 05/08/2012 (Active) * Letrozole [...] TABLETS DAILY.; Start Date: 05/08/2012 (Active) * PredniSONE 20 MG Oral Tablet; Start Date: 05/08/2012 (Active) * Restoril 15 MG Oral Capsule; TAKE 1 CAPSULE AT BEDTIME.; Start Date: 05/08/2012 (Active) * Cefdinir 300 MG Oral Capsule; TAKE 1 CAPSULE 3 TIMES DAILY; Start Date: 05/08/2012 (Active) * Marco 5-20 MG Oral Tablet; TAKE 1 TABLET ONCE DAILY. (Active) * Metoprolol Succinate ER 25 MG Oral Tablet Extended Release 24 Hour; TAKE 1 TABLET DAILY.; Start Date: 05/08/2012; End Date: (Active) Allergies and Adverse Reactions * Codeine Derivatives (Active) * Hydrocodone-Acetaminophen TABS (Active) * Ambien TABS (Active) * Iodine SOLN (Active) * Percodan TABS (Active) * Adhesive Tape (Active) * Lortab TABS (Active) Past Medical History * No Significant Medical History Social History * Never A Smoker (Active) Advance Directives * No Advance Directives available. Encounters * AUDIT 06/06/2012 * EST, Provider: MARFIER RODRIGUEZ, Status: Rashaad, Time: 1:45 PM 06/27/2012 * ECH, Provider: FRANCESCA BECK, Status: Rashaad, Time: 2:00 PM 06/27/2012
--- OUTSIDE RECORDS SUMMARY | 2019-09-25 22:06 | XMS REPORT ---
Author Author GHANSHYAM Gaffney Organization Unknown Address Unknown Phone Care Team Providers Care Director Of Partner Marketing Name Role Phone Gulshan Sara PP Unavailable Reason for Referral No Reason [...] No Advance Directives available. Encounters * AUDIT 05/08/2012
--- OUTSIDE RECORDS SUMMARY | 2019-09-25 22:07 | XMS REPORT | Continuity of Care Document ---
Author Author [facility] t Organization Formerly [facility] Address [address] [place] [address] Phone Unavailable Care Team Providers Care Electrical Instrumentation Technician Name Role Phone Shay GREENWOOD PCP Dennys RODRIGUEZ Attphys Unavailable Marissa SUE, Ludin Thorne Attphys [phone] TREVOR OLIVEIRA Attphys Unavailable Cesar SUE, Iraj Armstrong Attphys Matt Dudley MD Attphys Jaida SUE, Lalo Attphys [phone] Gino SUE, Jose Attphys MATT DUDLEY Attphys Unavailable Becky ZUNIGA Attphys Unavailable [employer] Attphys Unavailable Ankita NEWMAN Attphys Unavailable Tab Ornelas Attphys Unavailable Sampson LUNA Attphys Unavailable LALO SENA Admphys Unavailable [employer] Admphys Unavailable Payers Payer Name Policy Type Policy Number Effective Date Expiration Date [id number]00 [facility] CAREUNITED HMO POS SELECT CHOICExxxx xxxxxHMO/POS xxxxxxxxx [facility] Problems Condition Name Condition Details Condition Category Status Onset Date Resolution Date Last Treatment Date Treating Clinician Comments Source Acute angina Acute angina Disease Active 2019-01-30 00:00:00 [facility] Facial paresthesia Facial paresthesia Problem Active 2015-01-25 00:00:0 0 [facility] Weakness of right side of body Right sided weakness Problem Ac tive 2015-01-25 00:00:00 [facility] Chest pain Chest pain Disease Active 2014-09-10 00:00:00 [facility] Hypertension Hype rtension Active 09/09/2012 [facility] Problem Active 2012-09-09 07:37:42 K[facility]em [facility] Asthma Asth ma Active 09/09/2012 [facility] Problem Active 2012-09-09 07:37:42 Devan Mensah Urinary Tract Infection Urin betty Tract Infection Active 09/09/2012 [facility] Problem Active 2012-09-09 07:37: 42 [facility] Type 2 Diabetes Mellitus - Uncomplicated, Uncontrolled Type 2 Diabetes Mellitus - Uncomplicated, Uncontrolled Active 09/09/2012 [facility] Problem Active 2012-09-09 07:37:42 M arin Mensah Mixed Hyperlipoproteinemia Mix ed Hyperlipoproteinemia Active 09/09/2012 [facility] Problem Active 2012-09-09 07:37: 42 [facility] Allergies, Adverse Reactions, Alerts Allergy Name Allergy Type Status Severity Reaction(s) Onset Date Inacti ve Date Treating Clinician Comments Source Letrozole Analogues Drug Allergy Active Itching 2019-01-31 00:00:0 0 [facility] Iodine Allergy to Substance Active 2018-07-03 00:00:00 [facility] Codeine Allergy to Substance Active 2018-07-03 00:00:00 [facility] Hydrocodone Allergy to Substance Active 2018-07-03 00:00:00 [facility] Oxycodone Allergy to Substance Active 2018-07-03 00:00:00 [facility] Aspirin Allergy to Substance Active 2018-07-03 00:00:00 [facility] Zolpidem Allergy to Substance Active Moderate HALLUCINATIONS 2018-07-03 00:00:00 [facility] Letrozole Allergy to Substance Active Mild 2018-07-03 00:00:00 [facility] dulaglutide Allergy to Substance Active Mild 2018-07-03 00:00:00 [facility] ADHESIVE TAPE Allergy to Substance Active 2016-02-05 00:00: 00 [facility] Oxycodone Reh-Cyysapgsl-Pur Propensity to adverse reactions Active 2015-12-28 00:00:00 [facility] Zolpidem Drug Allergy Active Rash 2014-09-10 00:00:00 hallucinations [facility] Codeine Drug Allergy Active Rash 2014-09-10 00:00:00 hallucinates [facility] Hydrocortisone Drug Allergy Active Rash 2014-09-10 00:00:00 [facility] Influenza Virus Vaccines Drug Allergy Active Hives 2014-09-10 00: 00:00 [facility] Iodine And Iodide Containing Products Drug Allergy Active Hives 2014-09-10 00:00:00 [facility] Oxycodone Drug Allergy Active Rash 2014-09-10 00:00:00 [facility] Ketorolac Drug Allergy Active Hives 2014-09-10 00:00:00 [facility] Tuberculin Ppd Drug Allergy Active Severe 2014-09-10 00:00:00 Whole arm swells up [facility] Cetirizine Drug Allergy Active Rash 2014-09-10 00:00:00 [facility] Codeine Derivatives Codeine Derivatives Active [facility] Hydrocodone-Acetaminophen TABS Hydrocodone-Acetaminophen TABS Active [facility] Ambien TABS Ambien TABS Active [facility] Iodine SOLN Iodine SOLN [facility] Percodan TABS Percodan TABS Active [facility] Lortab TABS Lortab TABS Active [facility] Fluzone INJ Fluzone INJ Active [facility] Social History Social Habit Start Date Stop Date Quantity Comments Source Sex Assigned At [facility] Social History 2012-09-09 07:37:42 2012-09-09 07:37:42 [facility] Smoking Status Start Date Stop Date Source Never smoker [facility] Medications Ordered Medication Name Filled Medication Name Start Date Stop Da te Current Medication? Ordering Clinician Indication Dosage Frequency Signature (SIG) Comments Components Source aspirin 81 MG EC tablet 2019-02-03 00:00:00 2019-03-05 23:59:00 No 81mg QD Take 1 tablet (81 mg total) by mouth daily for 30 days. [facility] amLODIPine (NORVASC) 10 MG tablet 2019-02-03 00:00:00 2018 23:59:00 No 10mg QD Take 1 tablet (10 mg total) by mouth thais ly for 30 days. [facility] gabapentin (NEURONTIN) 600 MG tablet 2019-02-02 17:05: 46 2019-02-02 00:00:00 No 600mg QD Take 600 mg by mouth nightly . [facility] hydrochlorothiazide (HYDRODIURIL) 50 MG tablet 2 17:05:46 2019-02-02 00:00:00 No 50mg QD Take 50 mg by mouth daily. [facility] isosorbide mononitrate (IMDUR) 60 MG 24 hr tablet 2019-02-02 17:05:46 2019-02-02 00:00:00 No 60mg QD Take 60 mg by mouth nightly. [facility] metoprolol (TOPROL-XL) 50 MG 24 hr tablet 2018-04 17:05:46 2019-02-02 00:00:00 No 50mg QD Take 50 mg by mouth daily. [facility] ranolazine (RANEXA) 500 MG 12 hr tablet 16:41:42 2019-02-02 00:00:00 No 500mg Q.5D Take 500 mg by mouth 2 (two) ti mes daily. [facility] ranolazine (RANEXA) 1,000 mg SR tablet 2019-02-02 00:00:00 Yes 1000mg Q.5D Take 1 tablet (1,000 mg total) by mouth 2 (two) times daily. [facility] gabapentin (NEURONTIN) 600 MG tablet 2019-02-02 00:00:00 Ye s 600mg QD Take 1 tablet (600 mg total) by mouth nightly. [facility] metoprolol (TOPROL-XL) 50 MG 24 hr tablet 2019-02-02 00:00:00 Yes 50mg QD Take 1 tablet (50 mg total) by mouth daily. [facility] hydroCHLOROthiazide (HYDRODIURIL) 50 MG tablet 2019-02-02 00:00: 00 Yes 50mg QD Take 1 tablet (50 mg total) by mouth daily. [facility] verapamil (CALAN-SR) 240 MG CR tablet 2019-01-30 15:30 :18 2019-01-30 00:00:00 No 360mg QD Take 360 mg by mouth nightly. [facility] Sulfamethoxazole/Trimethoprim (Bactrim Ds Tablet) 1 Ea ch Tablet Sulfamethoxazole/Trimethoprim (Bactrim Ds Tablet) 1 Each Tablet 2018-07-03 00:00:00 Yes Oral Francis Np 1 Twice A Day [facility] melatonin 3 mg Tab tablet 2018-03-06 09:10:23 Yes Take by mouth. [facility] insulin degludec (TRESIBA FLEXTOUCH U-200) 200 unit/mL (3 mL ) InPn 2018-03-06 09:10:23 Yes Inject subcutaneously. [facility] DULoxetine (CYMBALTA) 30 MG capsule 2015-12-28 23:39:57 Yes diabetic peripheral neuropathy 30mg QD Take 30 mg by mouth nightly. [facility] linagliptin 5 mg Tab 2015-12-28 23:25:04 Yes 5mg QD Take 5 mg by mouth nightly . [facility] Aspirin (Aspirin Ec) 81 Mg Tablet., 81 Mg Oral Aspir in (Aspirin Ec) 81 Mg Tablet., 81 Mg Oral 2015-01-27 00:00:00 2018-07-03 00:00:00 No Julian Steele Md 81 Daily [facility] Cefuroxime Axetil (Cefuroxime) 250 Mg Tablet, 250 Mg O ral Cefuroxime Axetil (Cefuroxime) 250 Mg Tablet, 250 Mg Oral 2015-01-27 00:00:00 2018-07-03 00:00:00 No Prosper Steele Md 250 Every 12 Hours [facility] Mometasone Furoate (Nasonex) 17 [place], 2 Sprays Isaias al Mometasone Furoate (Nasonex) 17 [place], 2 Sprays Nasal 2015-01-27 00:00:00 2018-07-03 00:00:00 No Prosper Steele Md 2 Daily [facility] diphenhydrAMINE (BENADRYL) 25 mg capsule 2014-09-10 17:36:40 Yes 25mg Take 25 mg by mouth every night as needed for Itching (also for itching as well as sleeep aid). [facility] insulin aspart (NOVOLOG) 100 unit/mL InPn 2014-09-10 17:36:40 Yes 15U Inject 15 Units subcutaneously 3 (three) times daily with meals. [facility] insulin detemir (LEVEMIR) 100 unit/mL injection 2014-09-10 17:36 :40 Yes 45U QD Inject 45 Units subcutaneously daily. [facility] FOLIC ACID/MULTIVITS-MIN/LUT (CENTRUM SILVER ORAL) 2014-08 17:36:39 Yes 1{tbl} QD Take 1 tablet by mouth daily. [facility] cholecalciferol, vitamin D3, 1,000 unit capsule 2014-09-10 17:36 :39 Yes 1000U QD Take 1,000 Units by mouth daily. [facility] letrozole (FEMARA) 2.5 mg tablet 2014-09-10 17:36:39 Yes 2.5mg QD Take 2.5 mg by mouth daily. [facility] Marco 5-20 MG Oral Tablet 2012-09-09 07:37:42 Yes (Active) [facility] BD Pen Needle Mini U/F 31G X 5 MM Miscellaneous 2012-08-28 05:00 :00 Yes ; Start Date: 08/28/2012 (Active) [facility] Pen [place] 3/16" 31G X 5 MM Miscellaneous 2012-08-09 05:00:00 Yes ; Start Date: 08/09/2012 (Active) [facility] Janumet XR 50-1000 MG Oral Tablet Extended Release 24 Hour 2012-08-09 05:00:00 Yes ; Start Date: 08/09/2012 (Activ e) [facility] Lunesta 3 MG Oral Tablet 2012-08-09 05:00:00 Yes ; Start Date: 08/09/2012 (Active) [facility] Levemir FlexPen 100 UNIT/ML Subcutaneous Solution 2012-07-04 05:00:00 Yes ; Start Date: 07/04/2012 (Active) [facility] Gabapentin 300 MG Oral Capsule 2012-05-08 06:00:00 Yes ; Start Date: 05/08/2012 (Active) [facility] Letrozole 2.5 MG Oral Tablet 2012-05-08 06:00:00 Yes ; Start Date: 05/08/2012 (Active) Mecry [facility] TraMADol HCl 50 MG Oral Tablet 2012-05-08 06:00:00 Yes ; Start Date: 05/08/2012 (Active) [facility] Benadryl Allergy 25 MG Oral Tablet 2012-05-08 06:00:00 Yes ; Start Date: 05/08/2012 (Active) [facility] Citalopram Hydrobromide 20 MG Oral Tablet 2012-05-08 06:00:00 Yes ; Start Date: 05/08/2012 (Active) [facility] Meloxicam 7.5 MG Oral Tablet 2012-05-08 06:00:00 Yes ; Start Date: 05/08/2012 (Active) [facility] PredniSONE 20 MG Oral Tablet 2012-05-08 06:00:00 Yes ; Start Date: 05/08/2012 (Active) [facility] Restoril 15 MG Oral Capsule 2012-05-08 06:00:00 Yes ; Start Date: 05/08/2012 (Active) [facility] Cefdinir 300 MG Oral Capsule 2012-05-08 06:00:00 Yes ; Start Date: 05/08/2012 (Active) [facility] Metoprolol Succinate ER 25 MG Oral Tablet Extended Release 2 4 Hour 2012-05-08 06:00:00 Yes ; Start Date: 05/08/2012 (Act ricardo) [facility] Cyclobenzaprine Hcl 10 Mg Tablet Cyclobenzaprine Hcl 10 Mg Tablet Yes 10 Three Times A Day as needed for Muscle Spasms [facility] Eplerenone (Inspra) 50 Mg Tablet Eplerenone (Inspra) 50 Mg Tablet Yes 50 Daily [facility] Hydrochlorothiazide 25 Mg Tablet Hydrochlorothiazide 25 Mg Tablet Yes 50 Daily [facility] Insulin Aspart (Novolog) 100 Units/1 Ml Inj Insulin As part (Novolog) 100 Units/1 Ml Inj Yes [facility] Insulin Detemir (Levemir 3ML Flexpen*) 100 Units/Ml In j Insulin Detemir (Levemir 3ML Flexpen*) 100 Units/Ml Inj Yes 30 Bedtime [facility] Linagliptin (Tradjenta) 5 Mg Tablet Linagliptin (Tradjenta) 5 Mg Tabl et Yes 5 Daily [facility] Metoprolol Tartrate 50 Mg Tablet Metoprolol Tartrate 50 Mg Tablet Yes 50 Daily [facility] Verapamil Hcl (Verapamil Er) 120 Mg Cap24h.pel Verapam il Hcl (Verapamil Er) 120 Mg Cap24h.pel Yes 360 Daily [facility] Acetaminophen/Chlorpheniramine (Coricidin Hbp Tablet) 1 Each Tablet, 2 Tab Oral Acetaminophen/Chlorpheniramine (Coricidin Hbp Tablet) 1 Each Tablet, 2 Tab Oral 2018-07-03 00:00:00 No 2 Q4hrs [facility] Albuterol Sulfate (Proventil Hfa) 6.7 Gm Hfa.aer.ad, A lbuterol Sulfate (Proventil Hfa) 6.7 Gm Hfa.aer.ad, 2018-07-03 00:00:00 No [facility] Gabapentin 300 Mg Capsule, 600 Mg Oral Gabapentin 300 Mg Capsule , 600 Mg Oral 2018-07-03 00:00:00 No 600 Three Times A Day [facility] Isosorbide Mononitrate (Isosorbide Mononitrate Er) 30 Mg Tab.er.24h, 30 Mg Oral Isosorbide Mononitrate (Isosorbide Mononitrate Er) 30 Mg Tab.er.24h, 30 Mg Oral 2018-07-03 00:00:00 No 30 Daily [facility] Letrozole 2.5 Mg Tablet, 2.5 Mg Oral Letrozole 2.5 Mg Tablet, 2. 5 Mg Oral 2018-07-03 00:00:00 No 2.5 Daily [facility] Linagliptin (Tradjenta) 5 Mg Tablet, 5 Mg Oral Linagli ptin (Tradjenta) 5 Mg Tablet, 5 Mg Oral 2018-07-03 00:00:00 No 5 Daily [facility] Losartan Potassium 100 Mg Tablet, 100 Mg Oral Losartan Potassium 100 Mg Tablet, 100 Mg Oral 2018-07-03 00:00:00 No 100 Daily [facility] Verapamil Hcl (Verapamil Er) 120 Mg Cap24h.pel, 240 Mg Oral Verapamil Hcl (Verapamil Er) 120 Mg Cap24h.pel, 240 Mg Oral 2018-07-03 00:00:00 No 240 Daily [facility] Amlodipine Bes/Olmesartan Med (Marco 5-40 Mg Tablet) 1 Each Tablet, 1 Tab Oral Amlodipine Bes/Olmesartan Med (Marco 5-40 Mg Tablet) 1 Each Tablet, 1 Tab Oral 2015-01-25 00:00:00 No 1 Daily [facility] Citalopram Hydrobromide (Celexa) 20 Mg Tablet, 20 Mg O ral Citalopram Hydrobromide (Celexa) 20 Mg Tablet, 20 Mg Oral 2015-01-25 00:00:00 No 20 Daily [facility] Eszopiclone (Lunesta) 3 Mg Tablet, 3 Mg Oral Eszopiclo ne (Lunesta) 3 Mg Tablet, 3 Mg Oral 2015-01-25 00:00:00 No 3 Bedtime [facility] Ibuprofen (Motrin) 800 Mg Tab, 800 Mg Oral Ibuprofen ( Motrin) 800 Mg Tab, 800 Mg Oral 2015-01-25 00:00:00 No 800 Three Times A Day [facility] Vital Signs Vital Name Observation Time Observation Value Comments Source Systolic blood pressure 2019-02-02 16:16:00 112 mm[Hg] [facility] Diastolic blood pressure 2019-02-02 16:16:00 51 mm[Hg] [facility] Heart rate 2019-02-02 16:16:00 75 /min [facility] Body temperature 2019-02-02 16:16:00 36.33 Cinthya [facility] Respiratory rate 2019-02-02 16:16:00 19 /min [facility] Oxygen saturation in Arterial blood by Pulse oximetry 2018-0414 16:16:00 98 [facility] weight Measured 2019-02-02 08:00:00 94.1 kg [facility] BMI 2019-02-02 08:00:00 35.61 kg/m2 [facility] Body height 2019-01-30 19:33:00 162.6 cm [facility] Procedures Procedure Date / Time Performed Performing Clinician [facility] Computed tomography of brain without radiopaque contrast 00:00:00 MALOU RODRIGUEZ [facility] X-ray of chest, two views 2019-05-06 00:00:00 COLLEEN ANGUIANO [facility] RHYTHM STRIP - SCAN 2019-02-09 10:24:29 Provider, Default [facility] REPORT OF PROCEDURE - ENDOSCOPY SCAN 2019-02-04 08:20:32 Pro vider, Default Scanning [facility] RHYTHM STRIP - SCAN 2019-02-04 08:20:29 Provider, Default [facility] CTA HEART CORONARY WITH CALCIUM EVALUATION WITH FFR 13:36:00 Ingris Randolph [facility] BASIC METABOLIC PANEL (7) 2019-02-02 05:31:00 Ingris Randolph [facility] POCT-GLUCOSE METER 2019-02-01 21:14:00 Kayla Sena i [facility] POCT-GLUCOSE METER 2019-02-01 17:09:00 Kayla Sena i [facility] POCT-GLUCOSE METER 2019-02-01 11:38:00 Kayla Sena i [facility] POCT-GLUCOSE METER 2019-02-01 07:15:00 KiritnasirKayla mercado i [facility] BASIC METABOLIC PANEL (7) 2019-02-01 05:13:00 Ingris Randolph [facility] POCT-GLUCOSE METER 2019-01-31 21:13:00 Kayla Sena i [facility] POCT-GLUCOSE METER 2019-01-31 17:52:00 Kayla Sena i [facility] POCT-GLUCOSE METER 2019-01-31 12:42:00 Annika Sena ervin [facility] POCT-GLUCOSE METER 2019-01-31 08:33:00 [facility] LIPID PANEL 2019-01-31 05:45:00 [facility] BASIC METABOLIC PANEL (7) 2019-01-31 05:45:00 Ingris Randolph [facility] HEMOGLOBIN A1C 2019-01-31 04:45:00 Matt Camarillo [facility] TSH/FREE T4 IF INDICATED 2019-01-31 04:45:00 Matt Camarillo [facility] CBC W/PLT COUNT & AUTO DIFFERENTIAL 2019-01-31 04:45:00 Ingris Randolph [facility] POCT-GLUCOSE METER 2019-01-30 21:29:00 [facility] TROPONIN I 2019-01-30 20:41:00 Matt Camarillo [facility] ECG 12-LEAD 2019-01-30 20:32:43 Unknown, Hl7 Doctor [facility] POCT-GLUCOSE METER 2019-01-30 18:40:00 Francisco Dudley [facility] ECG 12-LEAD 2019-01-30 15:44:59 Matt Camarillo [facility] TROPONIN I 2019-01-30 15:21:00 [facility] POCT-GLUCOSE METER 2019-01-30 14:31:00 Octavia [facility] BASIC METABOLIC PANEL (7) 2019-01-30 10:30:00 [facility] MAGNESIUM 2019-01-30 10:30:00 [facility] B-TYPE NATRIURETIC FACTOR (BNP) 2019-01-30 10:30:00 [facility] TROPONIN I 2019-01-30 10:30:00 [facility] PT/APTT 2019-01-30 10:30:00 [facility] CBC W/PLT COUNT & AUTO DIFFERENTIAL 2019-01-30 10:30:00 Shay Dudley [facility] XR CHEST 2 VIEWS 2019-01-30 10:05:00 [facility] ECG 12-LEAD 2019-01-30 09:42:00 Unknown, Hl7 Doctor [facility] Plan of Care Planned Activity Planned Date Details Comments Source Future Scheduled Test 2012-09-06 04:19:02 Plan of Care [code = 1877 6-5] [facility] Encounters Start Date/Time End Date/Time Encounter Type Admission Type Attendi [facility] Care Department Encounter ID Source 2019-07-01 17:54:00 2019-07-02 01:46:00 Departed Emergency Room [address] [facility] [id number] [facility] 2019-06-03 15:46:01 2019-06-03 15:56:01 Office Visit Mati Horta [facility] [id number] 2019-05-06 17:48:00 2019-05-06 20:10:00 Departed Emergency Room [address] [facility] [id number] [facility] 2019-02-17 15:25:39 2019-02-17 16:44:34 Office Visit Francisco Pearl [facility] [id number] 2018-12-31 11:54:25 2018-12-31 12:48:48 Office Visit Francisco Pearl [facility] [id number] 2018-12-08 14:19:48 2018-12-08 15:04:06 Office Visit Francisoc Pearl [facility] [id number] 2018-11-26 15:55:07 2018-11-26 16:05:07 Office Visit Mati Horta [facility] [id number] 2018-07-03 10:13:00 2018-07-03 15:31:00 Departed Emergency Room [address] [facility] [id number] [facility] 2017-06-25 12:19:00 2017-06-25 16:19:00 Departed Emergency Room ER BRAD NEWMAN [facility] [id number] [facility] 2017-01-29 09:14:00 2017-01-29 09:14:00 [facility] [id number]-01-22 18:46:00 2017-01-22 23:01:00 Departed Emergency Room ER FIONA LUNA [facility] [id number] [facility] 2016-10-30 15:23:00 2016-10-30 15:23:[address] [facility] [id number] [facility] 2012-09-09 02:38:02 2012-09-09 02:37:42 Outpatient [facility] [id number] 2012-09-05 23:19:21 2012-09-05 23:19:02 [id number] 2012-08-29 02:36:42 2012-08-29 02:36:24 [facility] [id number] 2012-06-06 13:47:26 2012-06-06 13:47:25 [facility] [id number] 2012-05-08 18:41:15 2012-05-08 18:40:59 Outpatient [facility] [id number] Results Test Description Test Time Test Comments Results Result Comments Source ANKLE 3+ VIEWS LEFT 2019-07-02 01:43:00 [place] [address] Patient Name: GHANSHYAM SCHROEDER MR #: [id number] : 1950 Age/Sex: 68/F Req #: [id number] Adm Physician: Ordered by: LILIBETH MARINA DO Report #: [id number] Location: ER Room/Bed: Procedure: [id number] DX/ANKLE 3+ VIEWS LEFT Exam Date: 07/02/19 Exam Time: 0104 REPORT STATUS: Signed Exam: Left ankle radiographs-3 views History: Fall. Comparison: None. Findings/Impression: No evidence of acute fracture or malalignment. Well-corticated bony fragment adjacent to the medial malleolus, suggestive of remote trauma. The ankle mortise is preserved. Soft tissue edema within the ankle, most pronounced laterally. Plantar calcaneal spur. Signed by: Dr. Keyona Montoya MD on 07/02/2019 1:45 AM Dictated By: KEYONA MONTOYA MD 4 Transcribed By: BRYANT on 07/02/19144 COPY TO: LILIBETH MARINA DO HIP LEFT 2-3 VW (+/- PELVIS) 2019-07-01 23:44:00 [place] [address] Patient Name: GHANSHYAM SCHROEDER MR #: [id number] : 1950 Age/Sex: 68/F Req #: [id number] Adm Physician: Ordered by: LILIBETH MARINA DO Report #: [id number] Location: ER Room/Bed: Procedure: [id number] DX/HIP LEFT 2-3 VW (+/- PELVIS) Exam Date: Exam Time: REPORT STATUS: Signed Exam: AP radiograph of the pelvis-1 view; left hip radiographs-2 views; left knee radiographs-3 views; left foot radiographs-3 views Clinical History: Fell in tub. Comparison: None. Findings: There is mild widening between the bases of the first and second metatarsal, measuring up to 3 mm. Mild offset between the base of the first metatarsal and medial cuneiform. There is soft tissue edema throughout the foot and hindfoot, most pronounced medially. Possible irregularity at the medial malleolus with surrounding soft tissue edema in the ankle. Mild degenerative changes of bilateral hips. Mild degenerative changes in the me dial and patellofemoral compartments of the left knee. No suprapatellar joint effusion. Impression: Findings suggestive of age indeterminant Lisfranc ligamentous injury without associated fracture demonstrated. Soft tissue edema in the foot. Suggest clinical correlation. Possible irregularity in the medial malleolus with surrounding soft tissue edema. Recommend ankle radiographs for further evaluation. No acute osseous abnormality in the pelvis, left hip, or left knee. Signed by: Dr. Keyona Montoya MD on 07/01/2019 11:53 PM Dictated By: KEYONA MONTOYA MD 52 Transcribed By: BRYANT on 07/01/192352 COPY TO: LILIBETH MARINA DO FOOT LEFT COMPLETE 2019-07-01 23:44:00 [place] [address] Patient Name: GHANSHYAM SCHROEDER MR #: [id number] : 1950 Age/Sex: 68/F Req #: [id number] Adm Physician: Ordered by: LILIBETH MARINA DO Report #: [id number] Location: ER Room/Bed: Procedure: [id number] DX/FOOT LEFT COMPLETE Exam Date: 07/01/19 Exam Time: 2305 REPORT STATUS: Signed Exam: AP radiograph of the pelvis-1 view; left hip radiographs-2 views; left knee radiographs-3 views; left foot radiographs-3 views Clinical History: Fell in tub. Comparison: None. Findings: There is mild widening between the bases of the first and second metatarsal, measuring up to 3 mm. Mild offset between the base of the first metatarsal and medial cuneiform. There is soft tissue edema throughout the foot and hindfoot, most pronounced medially. Possible irregularity at the medial malleolus with surrounding soft tissue edema in the ankle. Mild degenerative changes of bilateral hips. Mild degenerative changes in the medial and patellofemoral compartments of the left knee. No suprapatellar joint effusion. Impression: Findings suggestive of age indeterminant Lisfranc ligamentous injury without associated fracture demonstrated. Soft tissue edema in the foot. Suggest clinical correlation. Possible irregularity in the medial malleolus with surrounding soft tissue edema. Recommend ankle radiographs for further evaluation. No acute osseous abnormality in the pelvis, left hip, or left knee. Signed by: Dr. Keyona Montoya MD on 07/01/2019 11:53 PM Dictated By: KEYONA MONTOYA MD 52 Transcribed By: BRYANT on 07/01/192352 COPY TO: LILIBETH MARINA DO KNEE LEFT THREE VIEWS 2019-07-01 23:44:00 [place] [address] Patient Name: GHANSHYAM SCHROEDER MR #: [id number] : 1950 Age/Sex: 68/F Req #: [id number] Adm Physician: Ordered by: LILIBETH MARINA DO Report #: [id number] Location: ER Room/Bed: Procedure: [id number] DX/KNEE LEFT THREE VIEWS Exam Date: 07/01/19 Exam Time: 2305 REPORT STATUS: Signed Exam: AP radiograph of the pelvis-1 view; left hip radiographs-2 views; left knee radiographs-3 views; left foot radiographs-3 views Clinical History: Fell in tub. Comparison: None. Findings: There is mild widening between the bases of the first and second metatarsal, measuring up to 3 mm. Mild offset between the base of the first metatarsal and medial cuneiform. There is soft tissue edema throughout the foot and hindfoot, most pronounced medially. Possible irregularity at the medial malleolus with surrounding soft tissue edema in the ankle. Mild degenerative changes of bilateral hips. Mild degenerative changes in the medial and patellofemoral compartments of the left knee. No suprapatellar joint effusion. Impression: Findings suggestive of age indeterminant Lisfranc ligamentous injury without associated fracture demonstrated. Soft tissue edema in the foot. Suggest clinical correlation. Possible irregularity in the medial malleolus with surrounding soft tissue edema. Recommend ankle radiograp hs for further evaluation. No acute osseous abnormality in the pelvis, left hip, or left knee. Signed by: Dr. Keyona Montoya MD on 07/01/2019 11:53 PM Dictated By: KEYONA MONTOYA MD 52 Transcribed By: BRYANT on 07/01/192352 COPY TO: LILIBETH MARINA DO CT BRAIN WO 2019-07-01 19:35:00 [place] [address] Patient Name: GHANSHYAM SCHROEDER MR #: [id number] : 1950 Age/Sex: 68/F Req #: [id number] Adm Physician: Ordered by: MALOU RODRIGUEZ MD Report #: [id number] Location: ER Room/Bed: Procedure: [id number] CT/CT BRAIN WO Exam Date: 07/01/19 Exam Time: 1919 REPORT STATUS: Signed CT BRAIN WO HISTORY: Trauma COMPARISON: Head CT 06/25/2017 TECHNIQUE: CT of the head was performed without the administration of intravenous contrast. Coronal/sagittal reformations were created. One or more of the following dose reduction techniques were used: Automated exposure control, adjustment of the mA and/or kV according to patient size, and/or utilization of iterative reconstruction technique. DISCUSSION: Scalp/Skull: No abnormalities. Brain sulci: Appropriate for patient's age. Ventricles: Normal in size and configuration. No hydrocephalus. Extra-axial spaces: No masses or fluid collections. Mild carotid siphon calcifications are present. Parenchyma: There is an old right caudate head lacunar infarct. No mass, hemorrhage, or large vascular territory acute infarct. Dural sinuses: No abnormal densities. Sellar/Suprasellar region: Intact. Skull base: Intact. Incidental findings: Mild opacification of the left posterior ethmoid air cells and left sphenoid sinus. IMPRESSION: 1. No acute intracranial abnormalities. 2. 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 Signed by: Dr. Chuy Rowe M.D. on 07/01/2019 7:38 PM Dictated By: CHUY ROWE MD 37 Transcribed By: BRYANT on 07/01/191937 COPY TO: MALOU RODRIGUEZ MD Sodium Level 2019-05-06 20:03:00 Test Item Sodium Level (test code = 2951-2) 144 136-145 [facility] Tibqz3132-44-78 20:03:00* Test Item Value Reference Range Interpretation Comments Potassium Level (test code = 2823-3) 3.5 3.5-5.1 [facility]viewChloride Dyyol9443-90-28 20:03:00* Test Item Value Reference Range Interpretation Comments Chloride Level (test code = 2075-0) 104 98-107 [facility]viewCarbon Dioxide Jmdvh8530-65-29 20:03:00* Test Item Value Reference Range Interpretation Comments Carbon Dioxide Level (test code = 2028-9) 29 22-29 [facility]viewAnion Laz3892-08-85 20:03:00* Test Item Value Reference Range Interpretation Comments Anion Gap (test code = 89559-2) 14.5 8-16 [facility]viewBlood Urea Rwlnneyh7500-30-68 20:03:00* Test Item Value Reference Range Interpretation Comments Blood Urea Nitrogen (test code = 3094-0) 11 7-26 [facility]viewCreatinine2020-01-15 20:03:00* Test Item Value Reference Range Interpretation Comments Creatinine (test code = 2160-0) 0.98 0.57-1.11 [facility]viewBUN/Creatinine Uwyrf8692-49-24 20:03:00* Test Item Value Reference Range Interpretation Comments BUN/Creatinine Ratio (test code = 3097-3) 11 6-25 [facility]viewEstimat Glomerular Filtration Rate 2019-05-06 20:03:00* Test Item Value Reference Range Interpretation Comments Estimat Glomerular Filtration Rate (test code = 633970394) > 60 >60 Ranges were taken from the National Kidney Disease Education Program and the [facility] literature.Reference ranges:60 or greater: Gxonzm57-76 ( for 3 consecutive months): Chronic kidney disease 15 or less: Kidney failureCovenant Health PlainviewGlucose Vuuul2924-50-61 20:03:00* Test Item Value Reference Range Interpretation Comments Glucose Level (test code = GWD3178) 183 74-118 H [facility]viewCalcium Gtebo2976-18-13 20:03:00* Test Item Value Reference Range Interpretation Comments Calcium Level (test code = 46802-8) 9.2 8.4-10.2 [facility]viewTotal Stguavvft9197-10-02 20:03:00* Test Item Value Reference Range Interpretation Comments Total Bilirubin (test code = 1975-2) 0.3 0.2-1.2 [facility]viewAspartate Amino Transf (AST/SGOT) 2019-05-06 20:03:00* Test Item Value Reference Range Interpretation Comments Aspartate Amino Transf (AST/SGOT) (test code = Aspartate Amino Transf (AST/SGOT)) 28 5-34 [facility]viewAlanine Aminotransferase (ALT/SGPT) 2019-05-06 20:03:00* Test Item Value Reference Range Interpretation Comments Alanine Aminotransferase (ALT/SGPT) (test code = 1742-6) 33 0-55 [facility]viewTotal Vmnwoxj9457-01-79 20:03:00* Test Item Value Reference Range Interpretation Comments Total Protein (test code = 2885-2) 7.3 6.5-8.1 [facility]viewAlbumin2020-01-15 20:03:00* Test Item Value Reference Range Interpretation Comments Albumin (test code = 1751-7) 3.6 3.5-5.0 [facility]viewGlobulin2020-01-15 20:03:00* Test Item Value Reference Range Interpretation Comments Globulin (test code = 35958-2) 3.7 2.3-3.5 H [facility]viewAlbumin/Globulin Iiglz1679-27-75 20:03:00 * Test Item Value Reference Range Interpretation Comments Albumin/Globulin Ratio (test code = 1759-0) 1.0 0.8-2.0 [facility]viewAlkaline Qaxzoilvvgh7795-70-41 20:03:00* Test Item Value Reference Range Interpretation Comments Alkaline Phosphatase (test code = 6768-6) 69 40-150 [facility]viewB-Type Natriuretic Yewvleu5021-18-16 20:03:00* Test Item Value Reference Range Interpretation Comments B-Type Natriuretic Peptide (test code = 21405-1) 16.9 0-100 [facility]viewCreatine Rakbjr7940-10-24 20:03:00* Test Item Value Reference Range Interpretation Comments Creatine Kinase (test code = 2157-6) 187 29-168 H [facility]viewCreatine Kinase UU9017-33-09 20:03:00* Test Item Value Reference Range Interpretation Comments Creatine Kinase MB (test code = 84084-8) 2.60 0-5.0 [facility]viewTroponin W4690-58-46 20:03:00* Test Item Value Reference Range Interpretation Comments Troponin I (test code = WCO6605) < 0.001 0-0.300 [facility] Campusodium Ctkzs8310-99-71 20:03:00* Test Item Value Reference Range Interpretation Comments Sodium Level (test code = 2951-2) 144 136-145 [facility]viewPotassium Wbbmk5047-23-64 20:03:00* Test Item Value Reference Range Interpretation Comments Potassium Level (test code = 2823-3) 3.5 3.5-5.1 [facility]viewChloride Iiehp6972-01-65 20:03:00* Test Item Value Reference Range Interpretation Comments Chloride Level (test code = 2075-0) 104 98-107 [facility]viewCarbon Dioxide Yrvwk7861-39-29 20:03:00* Test Item Value Reference Range Interpretation Comments Carbon Dioxide Level (test code = 2028-9) 29 22-29 [facility]viewAnion Vto9418-43-04 20:03:00* Test Item Value Reference Range Interpretation Comments Anion Gap (test code = 54531-7) 14.5 8-16 [facility]viewBlood Urea Rphhhiqa7785-91-74 20:03:00* Test Item Value Reference Range Interpretation Comments Blood Urea Nitrogen (test code = 3094-0) 11 7-26 [facility]viewCreatinine2020-01-15 20:03:00* Test Item Value Reference Range Interpretation Comments Creatinine (test code = 2160-0) 0.98 0.57-1.11 [facility]viewBUN/Creatinine Zxbyt8789-51-46 20:03:00* Test Item Value Reference Range Interpretation Comments BUN/Creatinine Ratio (test code = 3097-3) 11 6-25 [facility]viewEstimat Glomerular Filtration Rate 2019-05-06 20:03:00* Test Item Value Reference Range Interpretation Comments Estimat Glomerular Filtration Rate (test code = 773707921) > 60 >60 Ranges were taken from the National Kidney Disease Education Program and the [facility] literature.Reference ranges:60 or greater: Psjdmj66-97 ( for 3 consecutive months): Chronic kidney disease 15 or less: Kidney failureCovenant Health PlainviewGlucose Ilxgn3249-66-90 20:03:00* Test Item Value Reference Range Interpretation Comments Glucose Level (test code = DTD7475) 183 74-118 H [facility]viewCalcium Wiufj3136-69-92 20:03:00* Test Item Value Reference Range Interpretation Comments Calcium Level (test code = 53062-7) 9.2 8.4-10.2 [facility]viewTotal Tqhawpqlb7018-75-42 20:03:00* Test Item Value Reference Range Interpretation Comments Total Bilirubin (test code = 1975-2) 0.3 0.2-1.2 [facility]viewAspartate Amino Transf (AST/SGOT) 2019-05-06 20:03:00* Test Item Value Reference Range Interpretation Comments Aspartate Amino Transf (AST/SGOT) (test code = Aspartate Amino Transf (AST/SGOT)) 28 5-34 [facility]viewAlanine Aminotransferase (ALT/SGPT) 2019-05-06 20:03:00* Test Item Value Reference Range Interpretation Comments Alanine Aminotransferase (ALT/SGPT) (test code = 1742-6) 33 0-55 [facility]viewTotal Oflhcln1430-03-72 20:03:00* Test Item Value Reference Range Interpretation Comments Total Protein (test code = 2885-2) 7.3 6.5-8.1 [facility] PlainviewAlbumin2020-01-15 20:03:00* Test Item Value Reference Range Interpretation Comments Albumin (test code = 1751-7) 3.6 3.5-5.0 [facility]viewGlobulin2020-01-15 20:03:00* Test Item Value Reference Range Interpretation Comments Globulin (test code = 01182-0) 3.7 2.3-3.5 H [facility]viewAlbumin/Globulin Hjxwm8223-98-17 20:03:00 * Test Item Value Reference Range Interpretation Comments Albumin/Globulin Ratio (test code = 1759-0) 1.0 0.8-2.0 [facility]viewAlkaline Xthabtnvhcw9389-35-32 20:03:00* Test Item Value Reference Range Interpretation Comments Alkaline Phosphatase (test code = 6768-6) 69 40-150 [facility]viewB-Type Natriuretic Xblxtvg4478-76-54 20:03:00* Test Item Value Reference Range Interpretation Comments B-Type Natriuretic Peptide (test code = 30928-0) 16.9 0-100 [facility]viewCreatine Lnvjhk5349-84-45 20:03:00* Test Item Value Reference Range Interpretation Comments Creatine Kinase (test code = 2157-6) 187 29-168 H [facility] PlainviewCreatine Kinase TZ7546-79-52 20:03:00* Test Item Value Reference Range Interpretation Comments Creatine Kinase MB (test code = 58994-9) 2.60 0-5.0 [facility]viewTroponin O2824-88-66 20:03:00* Test Item Value Reference Range Interpretation Comments Troponin I (test code = FXS6445) < 0.001 0-0.300 [facility]viewInfluenza Virus Types A,B Antigen 2019-05-06 19:46:00* Test Item Value Reference Range Interpretation Comments Influenza Virus Types A,B Antigen (test code = 87948-9) NEGATIVE NEGATIVE [facility]viewInfluenza Virus Types A,B Antigen 2019-05-06 19:46:00* Test Item Value Reference Range Interpretation Comments Influenza Virus Types A,B Antigen (test code = 80396-5) NEGATIVE NEGATIVE [facility]viewProthrombin Axwk1517-14-11 19:34:00* Test Item Value Reference Range Interpretation Comments Prothrombin Time (test code = 5902-2) 11.8 11.9-14.5 L [facility]viewProthromb Time International Ratio 2019-05-06 19:34:00* Test Item Value Reference Range Interpretation Comments Prothromb Time International Ratio (test code = 6301-6) 0.82 Oral Anticoagulant Therapy INR Values:1. Low Intensity Therapy 1.5 - 2.02 . Moderate Intensity Therapy 2.0 - 3.03. High Intensity Therapy(1) 2.5 - 3. 54. High Intensity Therapy(2) 3.0 - 4.05. Panic Value INR > 5.0 [facility] PlainviewActivated Partial Thromboplast Time 2019-05-06 19:34:00* Test Item Value Reference Range Interpretation Comments Activated Partial Thromboplast Time (test code = 07934-4) 26.3 23.8-35.5 [facility]viewProthrombin Jwhb0908-87-40 19:34:00* Test Item Value Reference Range Interpretation Comments Prothrombin Time (test code = 5902-2) 11.8 11.9-14.5 L [facility] PlainviewProthromb Time International Ratio 2019-05-06 19:34:00* Test Item Value Reference Range Interpretation Comments Prothromb Time International Ratio (test code = 6301-6) 0.82 Oral Anticoagulant Therapy INR Values:1. Low Intensity Therapy 1.5 - 2.02 . Moderate Intensity Therapy 2.0 - 3.03. High Intensity Therapy(1) 2.5 - 3. 54. High Intensity Therapy(2) 3.0 - 4.05. Panic Value INR > 5.0 [facility] PlainviewActivated Partial Thromboplast Time 2019-05-06 19:34:00* Test Item Value Reference Range Interpretation Comments Activated Partial Thromboplast Time (test code = 53479-5) 26.3 23.8-35.5 [facility] PlainviewWhite Blood Gbpdw7854-38-50 19:27:00* Test Item Value Reference Range Interpretation Comments White Blood Count (test code = 6690-2) 6.17 4.8-10.8 [facility]viewRed Blood Kqqbd0513-00-88 19:27:00* Test Item Value Reference Range Interpretation Comments Red Blood Count (test code = 789-8) 5.34 3.6-5.1 H [facility] PlainviewHemoglobin2020-01-15 19:27:00* Test Item Value Reference Range Interpretation Comments Hemoglobin (test code = 37040-2) 12.9 12.0-16.0 [facility]viewHematocrit2020-01-15 19:27:00* Test Item Value Reference Range Interpretation Comments Hematocrit (test code = 4544-3) 42.1 34.2-44.1 [facility] PlainviewMean Corpuscular Tytvoq3329-72-96 19:27:00* Test Item Value Reference Range Interpretation Comments Mean Corpuscular Volume (test code = 787-2) 78.8 81-99 L [facility] PlainviewMean Corpuscular Alcxzciosh1767-76-16 19:27:00* Test Item Value Reference Range Interpretation Comments Mean Corpuscular Hemoglobin (test code = 785-6) 24.2 28-32 L [facility] PlainviewMean Corpuscular Hemoglobin Concent 2019-05-06 19:27:00* Test Item Value Reference Range Interpretation Comments Mean Corpuscular Hemoglobin Concent (test code = 786-4) 30.6 31-35 L [facility] PlainviewRed Cell Distribution Hfahr6633-16-63 19:27:00* Test Item Value Reference Range Interpretation Comments Red Cell Distribution Width (test code = 43669-8) 14.8 11.7 -14.4 H [facility] PlainviewPlatelet Jtxhm9140-58-14 19:27:00* Test Item Value Reference Range Interpretation Comments Platelet Count (test code = 777-3) 276 140-360 [facility]viewNeutrophils (%) (Auto)2019-05-06 19:27:00 * Test Item Value Reference Range Interpretation Comments Neutrophils (%) (Auto) (test code = 16227-5) 50.5 38.7-80.0 [facility]viewLymphocytes (%) (Auto)2019-05-06 19:27:00 * Test Item Value Reference Range Interpretation Comments Lymphocytes (%) (Auto) (test code = 736-9) 37.1 18.0-39.1 [facility]viewMonocytes (%) (Auto)2019-05-06 19:27:00* Test Item Value Reference Range Interpretation Comments Monocytes (%) (Auto) (test code = 5905-5) 7.9 4.4-11.3 [facility]viewEosinophils (%) (Auto)2019-05-06 19:27:00 * Test Item Value Reference Range Interpretation Comments Eosinophils (%) (Auto) (test code = 713-8) 3.7 0.0-6.0 [facility]viewBasophils (%) (Auto)2019-05-06 19:27:00* Test Item Value Reference Range Interpretation Comments Basophils (%) (Auto) (test code = 706-2) 0.5 0.0-1.0 [facility]viewIM GRANULOCYTES %2019-05-06 19:27:00* Test Item Value Reference Range Interpretation Comments IM GRANULOCYTES % (test code = IM GRANULOCYTES %) 0.3 0.0- 1.0 [facility]viewNeutrophils # (Auto)2019-05-06 19:27:00* Test Item Value Reference Range Interpretation Comments Neutrophils # (Auto) (test code = 751-8) 3.1 2.1-6.9 [facility]viewLymphocytes # (Auto)2019-05-06 19:27:00* Test Item Value Reference Range Interpretation Comments Lymphocytes # (Auto) (test code = 93768-9) 2.3 1.0-3.2 [facility]viewMonocytes # (Auto)2019-05-06 19:27:00* Test Item Value Reference Range Interpretation Comments Monocytes # (Auto) (test code = 742-7) 0.5 0.2-0.8 [facility]viewEosinophils # (Auto)2019-05-06 19:27:00* Test Item Value Reference Range Interpretation Comments Eosinophils # (Auto) (test code = 711-2) 0.2 0.0-0.4 [facility]viewBasophils # (Auto)2019-05-06 19:27:00* Test Item Value Reference Range Interpretation Comments Basophils # (Auto) (test code = 704-7) 0.0 0.0-0.1 [facility]viewAbsolute Immature Granulocyte (auto 2019-05-06 19:27:00* Test Item Value Reference Range Interpretation Comments Absolute Immature Granulocyte (auto (corey t code = Absolute Immature Granulocyte (auto) 0.02 0-0.1 [facility]viewWhite Blood Wnuhk6071-00-30 19:27:00* Test Item Value Reference Range Interpretation Comments White Blood Count (test code = 6690-2) 6.17 4.8-10.8 [facility]viewRed Blood Spgpx4812-20-56 19:27:00* Test Item Value Reference Range Interpretation Comments Red Blood Count (test code = 789-8) 5.34 3.6-5.1 H [facility] PlainviewHemoglobin2020-01-15 19:27:00* Test Item Value Reference Range Interpretation Comments Hemoglobin (test code = 22920-6) 12.9 12.0-16.0 [facility]viewHematocrit2020-01-15 19:27:00* Test Item Value Reference Range Interpretation Comments Hematocrit (test code = 4544-3) 42.1 34.2-44.1 [facility]viewMean Corpuscular Bzinsh4281-26-56 19:27:00* Test Item Value Reference Range Interpretation Comments Mean Corpuscular Volume (test code = 787-2) 78.8 81-99 L [facility] PlainviewMean Corpuscular Xmqjkzvbrn4268-54-04 19:27:00* Test Item Value Reference Range Interpretation Comments Mean Corpuscular Hemoglobin (test code = 785-6) 24.2 28-32 L [facility] PlainviewMean Corpuscular Hemoglobin Concent 2019-05-06 19:27:00* Test Item Value Reference Range Interpretation Comments Mean Corpuscular Hemoglobin Concent (test code = 786-4) 30.6 31-35 L [facility] PlainviewRed Cell Distribution Liknl8054-68-74 19:27:00* Test Item Value Reference Range Interpretation Comments Red Cell Distribution Width (test code = 60573-8) 14.8 11.7 -14.4 H [facility] PlainviewPlatelet Givkv3753-96-38 19:27:00* Test Item Value Reference Range Interpretation Comments Platelet Count (test code = 777-3) 276 140-360 [facility]viewNeutrophils (%) (Auto)2019-05-06 19:27:00 * Test Item Value Reference Range Interpretation Comments Neutrophils (%) (Auto) (test code = 14018-1) 50.5 38.7-80.0 [facility]viewLymphocytes (%) (Auto)2019-05-06 19:27:00 * Test Item Value Reference Range Interpretation Comments Lymphocytes (%) (Auto) (test code = 736-9) 37.1 18.0-39.1 [facility]viewMonocytes (%) (Auto)2019-05-06 19:27:00* Test Item Value Reference Range Interpretation Comments Monocytes (%) (Auto) (test code = 5905-5) 7.9 4.4-11.3 [facility]viewEosinophils (%) (Auto)2019-05-06 19:27:00 * Test Item Value Reference Range Interpretation Comments Eosinophils (%) (Auto) (test code = 713-8) 3.7 0.0-6.0 [facility]viewBasophils (%) (Auto)2019-05-06 19:27:00* Test Item Value Reference Range Interpretation Comments Basophils (%) (Auto) (test code = 706-2) 0.5 0.0-1.0 [facility]viewIM GRANULOCYTES %2019-05-06 19:27:00* Test Item Value Reference Range Interpretation Comments IM GRANULOCYTES % (test code = IM GRANULOCYTES %) 0.3 0.0- 1.0 [facility]viewNeutrophils # (Auto)2019-05-06 19:27:00* Test Item Value Reference Range Interpretation Comments Neutrophils # (Auto) (test code = 751-8) 3.1 2.1-6.9 [facility]viewLymphocytes # (Auto)2019-05-06 19:27:00* Test Item Value Reference Range Interpretation Comments Lymphocytes # (Auto) (test code = 89153-1) 2.3 1.0-3.2 [facility]viewMonocytes # (Auto)2019-05-06 19:27:00* Test Item Value Reference Range Interpretation Comments Monocytes # (Auto) (test code = 742-7) 0.5 0.2-0.8 [facility]viewEosinophils # (Auto)2019-05-06 19:27:00* Test Item Value Reference Range Interpretation Comments Eosinophils # (Auto) (test code = 711-2) 0.2 0.0-0.4 [facility]viewBasophils # (Auto)2019-05-06 19:27:00* Test Item Value Reference Range Interpretation Comments Basophils # (Auto) (test code = 704-7) 0.0 0.0-0.1 [facility]viewAbsolute Immature Granulocyte (auto 2019-05-06 19:27:00* Test Item Value Reference Range Interpretation Comments Absolute Immature Granulocyte (auto (corey t code = Absolute Immature Granulocyte (auto) 0.02 0-0.1 [facility]viewCHEST 2 NYZQG3335-75-03 18:54:00 [facility] [address] [address] Patient Name: GHANSHYAM SCHROEDER MR #: [id number] : 1950 Age/Sex: 68/F Req #: [id number] Adm Physician: Ordered by: COLLEEN ANGUIANO NP Report #: [id number] Location: ER Room/Bed: Procedure: [id number] DX /CHEST 2 VIEWS Exam Date: 05/06/19 Exam Time: 1830 REPORT STATUS: Signed EXAMINAT ION: PA and lateral views of the chest. COMPARISON: None CLINICAL HIST ORY: Shortness of breath DISCUSSION: Lines/tubes: None. Arleth ngs: The lungs are well inflated and clear. No pneumonia or pulmonary edema. Pleura: No pleural effusion or pneumothorax. Heart and mediastinum: The cardiomediastinal silhouette is normal. Bones and soft tissues: No acute bony abnormalities. IMPRESSION: No acute cardiopulmonary abnorm alities. Signed by: Dr. Hafsa Gibson M.D. on 05/06/2019 6:55 PM Dictated By: HAFSA GIBSON MD 54 Transcribed By: BRYANT on 05/06/191854 COPY TO: COLLEEN ANGUIANO NP CT, CTA CORONARY WITH CALCIUM EVAL AND FFR [id number] 10:25:00Reason for exam:->CHEST PAINAddendum BeginsREPORT STATUS:A Addendum: February 03, 2019 at 10: 20 a.m. I have reviewed the CT images for this study and I concur with the nonvascular imaging findings as dictated. The calcification described in the right breast with surrounding hypoattenuation could represent dystrophic calcification, possibly representing to a prior surgery but could be further assessed with mammography and possibly a breast ultrasound. Signed: Eldon Francisco MDReport Verified Date/Time: 02/03/2019 10:25:08 Reading Location: [facility] Diagnostic Imaging Reading Room - [facility] [phone] EndsFINAL REPORT CT coronary angiography, 02 February 2019 INDICATION: This is a 68 -year old male with chest pain presents for assessment. TECHNIQUE: Spiral acquisition before and during intravenous contrast administration using a Lottie multidetec tor CT scanner. Multi-planar 3-D volume-rendering reconstruction was performed u sing an independent workstation interactively by the interpreting physician as w ell as the 3-D specialist for optimal visualisation of the coronary anatomy. Co nsecutive thin slices (< 1mm) were obtained. High rate is suboptimal, of at least 75 bpm on arrival the CT department. Medication administration: Oral metoprolol 75 mg;IV propranolol 1 mg;S/L nitroglyercin 0 mg. Please refer to the contrast sheet scanned in the EPIC system for the amount and route of contrast given. This exam was performed according to our departmental dose- optimisation programme, which includes automated exposure control, adjustment [...] performed. Coronary calcification was analyzed using the [employer] system software. These are the results of the calcium score evaluation (thres hold = 130 HU): LM: = 0 Volume = 0 LAD: = 0 Volume = 0 LCX: = 0 Volume = 0 RCA: = 0 Volume = 0 Agatston: = 0 Volume = 0 Reference ranges for calc ium scores are provided as follows (Faulkner Clin Proc 1999; 74: 243-252): 0-10: m inimal calcium 11-100: mild calcium 101-400 moderate calcium [...] left main coronary artery is likely unremarkable, whe re a few from the 80% reconstruction. Part of the proximal LAD has motion artefa ct identified making assessment limited. Remainder of the proximal LAD appears t o be unremarkable. Parts of the mid LAD is unremarkable. Remainder of the mid an d distal LAD motion artefact identified. The left circumflex artery is also wide ly patent. It gives rise to a first small OM branch and the left circumflex shalini ry terminates as the second OM branch. The right coronary artery is better seen at 45% reconstruction, was still some minimal motion artefact identified. Howeve r, no obstructive lesion is seen in the proximal, mid, and distal RCA. The left circumflex artery is nondominant and is seen to be patent, for example at 35% re construction, however, accurate assessment is limited with motion artefact prese nt. NON-VASCULAR: The visualised thyroid gland is unremarkable. The chest wall a nd mediastinum appears unremarkable. No significant adenopathy is identified in the mediastinum. In the lung windows, no endobronchial lesion is seen, and no pl eural effusion is identified. Some dependent changes are seen. Overall, no pulmo nary nodule is identified. Motion artefact is seen. CT is not optimised in the a ssessment of breast structure is. However, this focal calcification identified i n the left breast, the upper chest series at image 33, measure up to 1.8 x 1.1 c m in diameter, with some peripheral hypodensity. Significance of this finding is uncertain. In any case, this can be further assessed by examination, an mammogr aphy, as the initial process. An addendum will be dictated thereafter, if needed . Limited images of the upper abdomen reveals no gross abnormality. No acute bon y pathology is seen except for the presence of some degenerative changes. CONCLU SIONS: 1. Quantitative coronary artery calcium volume and Agatston score of 0 a nd 0 , respectively. Images are somewhat noisy, with some motion artefact, ove rall it is interpreted as NEGATIVE for coronary artery calcification. 2. Normal coronary artery origins. Overall inconclusive study d ue to motion artefact with suboptimal heart rate on presentation to the CT depar tment. By multiphasic reconstruction, the left main coronary artery and the RCA appears to be patent with no obstructive lesion identified. The proximal LAD has some motion artefact identified despite multiphasic reconstruction. Remainder of the proximal LAD and part of the mid LAD appears to be unremarkable. Remainder of the the mid and distal LAD has motion artefact identified. The left circumfl ex artery is nondominant and is seen to be patent, for example at 35% reconstruc tion, however, accurate assessment is limited with motion artefact present. The data will be sent for CT analysis, ct-ffr, by an independent third constitution party vendor. Should the data be accepted for postprocessing, the result would be sent to [employer] when available. However, the data will likely be rejected due to motion a rtefact. If the data is to be rejected, no addendum will be dictated. 3. No acu te pulmonary pathology. No evidence of central pulmonary artery embolism. 4. No rmal thoracic aorta. No acute aortic pathology is identified. 5. Other findings as described above, including the left breast finding. 6. The non-vascular fin dings will be reviewed by the [employer] Supervisor Radiologist and addendum will be added as needed. Signed: Maurice, Suhas MDReport Verified Date/Time: 02/02/2019 14 :31:21 heart coronary with calcium evaluation with [id number] 14:31:00 Interface, External Ris In - 02/03/2019 10:27 AM CDTAddendum BeginsREPORT STATUS :A Addendum: February 03, 2019 at 10: 20 a.m. I have revie wed the CT images for this study and I concur with the nonvascular imaging findi ngs as dictated. The calcification described in the right breast with surroundin g hypoattenuation could represent dystrophic calcification, possibly representin g to a prior surgery but could be further assessed with mammography and possibly a breast ultrasound. Signed: Francisco Colón Verified Date/Time: 2018 10:25:08 Reading Location: [facility] Diagnostic Imaging Reading Room - [address]Addendum EndsFINAL REPORT CT coronary angiography, 02 February 2019 INDICATION: This is a 68 -year old male with chest pain pres ents for assessment. TECHNIQUE: Spiral acquisition before and during intravenou s contrast administration using a Lottie multidetector CT scanner. Multi-planar 3-D volume-rendering reconstruction was performed using an independent workstat ion interactively by the interpreting physician as well as the 3-D specialist fo r optimal visualisation of the coronary anatomy. Consecutive thin slices (< 1mm) were obtained. High rate is suboptimal, of at least 75 bpm on arrival the CT department. Medication administration: Oral metoprolol 75 mg;IV propranolol 1 mg;S/L nitroglyercin 0 mg. Please refer to the contrast sheet scanned in the EPIC system for the amount and route of contrast given. This exam was performed according to our departmental dose-optimisation programme, which includes autom ated exposure control, adjustment of the mA and/or kV according to patient size and/or use of iterative reconstruction technique. Dose modulation, iterative rec onstruction, and/or weight based adjustment of the mA/kV was utilized to reduce the radiation dose to as low as reasonably achievable. FINDINGS: VASCULAR: The thoracic aorta is normal in course, calibre, contour. No ectasia or aneurysmal dilation is seen. There is no acute aortic pathology, specifically, there is no dissection, contained rupture, and intramural hematoma. The arch vessel branch ing pattern is normal. The central pulmonary artery is normal in calibre. There is no evidence of central pulmonary artery embolism. The left ventricle is jessa l in size. There is normal atrio-ventricular and ventriculo-arterial concordanc e, and systemic and pulmonary venous return. The pericardium is normal appearan ce. There is no evidence of pericardial effusion. Calcium score and high-resolut ion, ECG synchronized computed tomography of the heart with attention to the cor onary arteries was performed. Coronary calcification was analyzed using the [employer] system software. These are the results of the calcium score evaluation (thres hold = 130 HU): LM: = 0 Volume = 0 LAD: = 0 Volume = 0 LCX: = 0 Volume = 0 RCA: = 0 Volume = 0 Agatston: = 0 Volume = 0 Reference ranges for calc ium scores are provided as follows (Faulkner Clin Proc 1999; 74: 243-252): 0-10: m inimal calcium 11-100: mild calcium 101-400 moderate calcium [...] left main coronary artery is likely unremarkable, whe re a few from the 80% reconstruction. Part of the proximal LAD has motion artefa ct identified making assessment limited. Remainder of the proximal LAD appears t o be unremarkable. Parts of the mid LAD is unremarkable. Remainder of the mid an d distal LAD motion artefact identified. The left circumflex artery is also wide ly patent. It gives rise to a first small OM branch and the left circumflex shalini ry terminates as the second OM branch. The right coronary artery is better seen at 45% reconstruction, was still some minimal motion artefact identified. Howeve r, no obstructive lesion is seen in the proximal, mid, and distal RCA. The left circumflex artery is nondominant and is seen to be patent, for example at 35% re construction, however, accurate assessment is limited with motion artefact prese nt. NON-VASCULAR: The visualised thyroid gland is unremarkable. The chest wall a nd mediastinum appears unremarkable. No significant adenopathy is identified in the mediastinum. In the lung windows, no endobronchial lesion is seen, and no pl eural effusion is identified. Some dependent changes are seen. Overall, no pulmo nary nodule is identified. Motion artefact is seen. CT is not optimised in the a ssessment of breast structure is. However, this focal calcification identified i n the left breast, the upper chest series at image 33, measure up to 1.8 x 1.1 c m in diameter, with some peripheral hypodensity. Significance of this finding is uncertain. In any case, this can be further assessed by examination, an mammogr aphy, as the initial process. An addendum will be dictated thereafter, if needed . Limited images of the upper abdomen reveals no gross abnormality. No acute bon y pathology is seen except for the presence of some degenerative changes. CONCLU SIONS: 1. Quantitative coronary artery calcium volume and Agatston score of 0 a nd 0 , respectively. Images are somewhat noisy, with some motion artefact, ove rall it is interpreted as NEGATIVE for coronary artery calcification. 2. Normal coronary artery origins. Overall inconclusive study d ue to motion artefact with suboptimal heart rate on presentation to the CT depar tment. By multiphasic reconstruction, the left main coronary artery and the RCA appears to be patent with no obstructive lesion identified. The proximal LAD has some motion artefact identified despite multiphasic reconstruction. Remainder of the proximal LAD and part of the mid LAD appears to be unremarkable. Remainder of the the mid and distal LAD has motion artefact identified. The left circumfl ex artery is nondominant and is seen to be patent, for example at 35% reconstruc tion, however, accurate assessment is limited with motion artefact present. The data will be sent for CT analysis, ct-ffr, by an independent third constitution party vendor. Should the data be accepted for postprocessing, the result would be sent to [employer] when available. However, the data will likely be rejected due to motion a rtefact. If the data is to be rejected, no addendum will be dictated. 3. No acu te pulmonary pathology. No evidence of central pulmonary artery embolism. 4. No rmal thoracic aorta. No acute aortic pathology is identified. 5. Other findings as described above, including the left breast finding. 6. The non-vascular fin dings will be reviewed by the [employer] Supervisor Radiologist and addendum will be added as needed. Signed: Suhas Richards MDReport Verified Date/Time: 02/02/2019 14 :31:21 [facility] metabolic [id number] 06:56:00* Test Item Value Reference Range Interpretation Comments Sodium (test code = 2951-2) 135 meq/L 136-145 L Potassium (test code = 2823-3) 4.2 meq/L 3.5-5.1 Chloride (test code = 2075-0) 103 meq/L 98-107 CO2 (test code = 8-9) 24 meq/L 22-29 BUN (test code = 3094-0) 28 mg/dL 7-21 H Creatinine (test code = 2160-0) 1.42 mg/dL 0.57-1.25 H Glucose (test code = 2345-7) 268 mg/dL 70-105 H Calcium (test code = 85967-3) 9.2 mg/dL 8.4-10.2 EGFR (test code = 86703-7) 45 mL/min/1.73 sq m ESTIMATED GFR IS NOT ACCURATE CREATININE CLEARANCE IN PREDICTING GLOMERULAR FILTRATION RATE. ESTIMATED GFR IS NOT APPLICABLE FOR DIALYSIS PATIENTS. Lab Interpretation (test code = 38418-7) Abnormal [facility] METABOLIC [id number] 06:56:00* Test Item Value Reference Range Interpretation Comments SODIUM (BEAKER) (test code = 381) 135 meq/L 136-145 L POTASSIUM (BEAKER) (test code = 379) 4.2 meq/L 3.5-5.1 CHLORIDE (BEAKER) (test code = 382) 103 meq/L 98-107 CO2 (BEAKER) (test code = 355) 24 meq/L 22-29 BLOOD UREA NITROGEN (BEAKER) (test code = 354) 28 mg/dL 7-21 H CREATININE (BEAKER) (test code = 358) 1.42 mg/dL 0.57-1.25 H GLUCOSE RANDOM (BEAKER) (test code = 652) 268 mg/dL 70-105 H CALCIUM (BEAKER) (test code = 697) 9.2 mg/dL 8.4-10.2 EGFR (BEAKER) (test code = 1092) 45 mL/min/1.73 sq m ESTIMATED GFR IS NOT ACCURATE CREATININE CLEARANCE IN PREDICTING GLOMERULAR FILTRATION RATE. ESTIMATED GFR IS NOT APPLICABLE FOR DIALYSIS PATIENTS. ECG 12 [id number] 06:31:23Interface, External Ris In - 02/02/2019 6:31 AM CDTVentricular Rate 70 BPMAtrial Rate 70 BPMP-R Interval 160 msQRS Duration 62 msQ-T Interval 378 msQTC Calculation(Bazett) 408 msP [place] 49 degreesR [place] 18 degreesT [place] 155 degreesNormal sinus rhythmT wave inversin lateral leads consider postischemic changesAbnormal ECGWhen compared with ECG of 30-JAN-2019 09:42,No significant change was foundConfirmed by MD PAOLA, JAGRUTI ([id number]) on 02/02/2019 6:31:22 [facility]-Glucose [id number] 21:36:00* Test Item Value Reference Range Interpretation Comments POC-Glucose Meter (test code = 1538) 96 mg/dL 70-110 TESTED AT [facility] [address] [facility] [address] Lab Interpretation (test code = 38174-1) [facility] [id number] 21:36:00* Test Item Value Reference Range Interpretation Comments POC-GLUCOSE METER (BEAKER) (test code = 1538) 96 mg/dL 70-110 TESTED AT [facility] [address] [facility] [address] POCT-GLUCOSE [id number] 17:23:00* Test Item Value Reference Range Interpretation Comments POC-GLUCOSE METER (BEAKER) (test code = 1538) 135 mg/dL 70-110 H TESTED AT [facility] [address] [facility] [address] POCT-GLUCOSE [id number] 11:40:00* Test Item Value Reference Range Interpretation Comments POC-GLUCOSE METER (BEAKER) (test code = 1538) 142 mg/dL 70-110 H TESTED AT [address] [address] POCT-GLUCOSE [id number] 08:02:00* Test Item Value Reference Range Interpretation Comments POC-GLUCOSE METER (BEAKER) (test code = 1538) 126 mg/dL 70-110 H TESTED AT [address] [address] BASIC METABOLIC [id number] 06:07:00* Test Item Value Reference Range Interpretation Comments SODIUM (BEAKER) (test code = 381) 137 meq/L 136-145 POTASSIUM (BEAKER) (test code = 379) 3.8 meq/L 3.5-5.1 CHLORIDE (BEAKER) (test code = 382) 103 meq/L 98-107 CO2 (BEAKER) (test code = 355) 26 meq/L 22-29 BLOOD UREA NITROGEN (BEAKER) (test code = 354) 22 mg/dL 7-21 H CREATININE (BEAKER) (test code = 358) 1.20 mg/dL 0.57-1.25 GLUCOSE RANDOM (BEAKER) (test code = 652) 119 mg/dL 70-105 H CALCIUM (BEAKER) (test code = 697) 8.9 mg/dL 8.4-10.2 EGFR (BEAKER) (test code = 1092) 54 mL/min/1.73 sq m ESTIMATED GFR IS NOT ACCURATE CREATININE CLEARANCE IN PREDICTING GLOMERULAR FILTRATION RATE. ESTIMATED GFR IS NOT APPLICABLE FOR DIALYSIS PATIENTS. POCT-GLUCOSE [id number] 21:23:00* Test Item Value Reference Range Interpretation Comments POC-GLUCOSE METER (BEAKER) (test code = 1538) 141 mg/dL 70-110 H TESTED AT [address] [address] POCT-GLUCOSE [id number] 17:54:00* Test Item Value Reference Range Interpretation Comments POC-GLUCOSE METER (BEAKER) (test code = 1538) 83 mg/dL 70-110 TESTED AT [address] [address] POCT-GLUCOSE [id number] 12:44:00* Test Item Value Reference Range Interpretation Comments POC-GLUCOSE METER (BEAKER) (test code = 1538) 145 mg/dL 70-110 H TESTED AT [place] [id number] [facility] [address] POCT-GLUCOSE [id number] 08:35:00* Test Item Value Reference Range Interpretation Comments POC-GLUCOSE METER (BEAKER) (test code = 1538) 133 mg/dL 70-110 H TESTED AT [facility] [address] [facility] [address] Hemoglobin [id number] 07:17:00* Test Item Value Reference Range Interpretation Comments Hemoglobin A1C (test code = 4548-4) 9.4 % 4.3-6.1 H Lab Interpretation (test code = 43221-1) [facility]normal [facility] [id number] 07:17:00* Test Item Value Reference Range Interpretation Comments HEMOGLOBIN A1C (BEAKER) (test code = 368) 9.4 % 4.3-6.1 H Lipid [id number] 06:27:00* Test Item Value Reference Range Interpretation Comments Triglycerides (test code = 2571-8) 250 mg/dL Cholesterol (test code = 2093-3) 142 mg/dL HDL (test code = 2085-9) 29 mg/dL LDL Calculated (test code = 40821-7) 63 mg/dL NIRAJ (test code = NIRAJ) Triglyceride Reference Range : Low Risk <150 Borderline 150-199 High Risk 200-499 Very High Risk >=500 Cholesterol Reference Range: Low Risk <200 Borderline 200-239 High Risk >240 HDL Cholesterol Reference Range: Low Risk >=60 High Risk <40 LDL Cholesterol Reference Range: Optimal <100 Near Optimal 100-129 Borderline 130-159 High 160-189 Very High >=190 [facility] CampusL[facility] [id number] 06:27:00* Test Item Value Reference Range Interpretation Comments TRIGLYCERIDES (BEAKER) (test code = 540) 250 mg/dL CHOLESTEROL (BEAKER) (test code = 631) 142 mg/dL HDL CHOLESTEROL (BEAKER) (test code = 976) 29 mg/dL LDL CHOLESTEROL CALCULATED (BEAKER) (test code = 633) 63 mg/dL Triglyceride Reference Range: Low Risk <150 Borderline 150-199 High Risk 200-499 Very High Risk >=500Cholesterol Reference Range: Low Risk <200 Borderline 200-239 High Risk >240HDL Cholesterol Reference Range: Low Risk >=60 High Risk <40LDL Cholesterol Reference Range: Optimal <100 Near Optimal 100-129 Borderline 130-159 High 160-189 Very High >=190 BASIC METABOLIC [id number] 06:27:00* Test Item Value Reference Range Interpretation Comments SODIUM (BEAKER) (test code = 381) 140 meq/L 136-145 POTASSIUM (BEAKER) (test code = 379) 3.9 meq/L 3.5-5.1 CHLORIDE (BEAKER) (test code = 382) 104 meq/L 98-107 CO2 (BEAKER) (test code = 355) 29 meq/L 22-29 BLOOD UREA NITROGEN (BEAKER) (test code = 354) 18 mg/dL 7-21 CREATININE (BEAKER) (test code = 358) 1.05 mg/dL 0.57-1.25 GLUCOSE RANDOM (BEAKER) (test code = 652) 123 mg/dL 70-105 H CALCIUM (BEAKER) (test code = 697) 9.4 mg/dL 8.4-10.2 EGFR (BEAKER) (test code = 1092) 63 mL/min/1.73 sq m ESTIMATED GFR IS NOT ACCURATE CREATININE CLEARANCE IN PREDICTING GLOMERULAR FILTRATION RATE. ESTIMATED GFR IS NOT APPLICABLE FOR DIALYSIS PATIENTS. TSH/Free T4 If [id number] 05:53:00* Test Item Value Reference Range Interpretation Comments TSH (test code = 27077-8) 0.84 0.35- 4.94 uIU/mL Lab Interpretation (test code = 09956-9) [facility] T[facility] IF [id number] 05:53:00* Test Item Value Reference Range Interpretation Comments THYROID STIMULATING HORMONE (BEAKER) (test code = 772) 0.84 uIU/mL 0.35-4.94 CBC with platelet count + automated [id number] 05:13:00* Test Item Value Reference Range Interpretation Comments WBC (test code = 6690-2) 6.6 3.5- 10.5 K/L RBC (test code = 789-8) 4.75 3.93- 5.22 M/L MCHC (test code = 786-4) 30.2 32.2- 35.5 GM/DL L Hematocrit (test code = 4544-3) 37.7 % 34.1-44.9 MCV (test code = 787-2) 79.4 fL 79.4-94.8 MCH (test code = 785-6) 24.0 pg 25.6-32.2 L RDW (test code = 788-0) 15.9 % 11.7-14.4 H Platelets (test code = 777-3) 198 150- 450 K/CU MM MPV (test code = 69634-5) 10.8 fL 9.4-12.3 nRBC (test code = 413) 0 0- 0 /100 WBC % Neutros (test code = 429) 53 % % Lymphs (test code = 430) 34 % % Monos (test code = 431) 9 % % Eos (test code = 432) 3 % % Baso (test code = 437) 0 % # Neutros (test code = 670) 3.47 1.56- 6.13 K/L # Lymphs (test code = 414) 2.25 1.18- 3.74 K/L # Monos (test code = 415) 0.61 0.24- 0.36 K/L H # Eos (test code = 416) 0.21 0.04- 0.36 K/L # Baso (test code = 417) 0.02 0.01- 0.08 K/L Immature Granulocytes-Relative (test code = 2801) 0 % 0-1 Lab Interpretation (test code = 79281-7) Abnormal [facility] W/PLT COUNT & AUTO [id number] 05:13:00* Test Item Value Reference Range Interpretation Comments WHITE BLOOD CELL COUNT (BEAKER) (test code = 775) 6.6 K/ L 3.5- 10.5 RED BLOOD CELL COUNT (BEAKER) (test code = 761) 4.75 M/ L 3.93-5 .22 HEMOGLOBIN (BEAKER) (test code = 410) 11.4 GM/DL 11.2-15.7 HEMATOCRIT (BEAKER) (test code = 411) 37.7 % 34.1-44.9 MEAN CORPUSCULAR VOLUME (BEAKER) (test code = 753) 79.4 fL 79. 4-94.8 MEAN CORPUSCULAR HEMOGLOBIN (BEAKER) (test code = 751) 24.0 pg 25.6-32.2 L MEAN CORPUSCULAR HEMOGLOBIN CONC (BEAKER) (test code = 752) 30.2 GM/DL 32.2-35.5 L RED CELL DISTRIBUTION WIDTH (BEAKER) (test code = 412) 15.9 % 11.7-14.4 H PLATELET COUNT (BEAKER) (test code = 756) 198 K/CU MM 150-450 MEAN PLATELET VOLUME (BEAKER) (test code = 754) 10.8 fL 9.4-12 .3 NUCLEATED RED BLOOD CELLS (BEAKER) (test code = 413) 0 /100 WBC 0 -0 NEUTROPHILS RELATIVE PERCENT (BEAKER) (test code = 429) 53 % LYMPHOCYTES RELATIVE PERCENT (BEAKER) (test code = 430) 34 % MONOCYTES RELATIVE PERCENT (BEAKER) (test code = 431) 9 % EOSINOPHILS RELATIVE PERCENT (BEAKER) (test code = 432) 3 % BASOPHILS RELATIVE PERCENT (BEAKER) (test code = 437) 0 % NEUTROPHILS ABSOLUTE COUNT (BEAKER) (test code = 670) 3.47 K/ L 1.56-6.13 LYMPHOCYTES ABSOLUTE COUNT (BEAKER) (test code = 414) 2.25 K/ L 1.18-3.74 MONOCYTES ABSOLUTE COUNT (BEAKER) (test code = 415) 0.61 K/ L 0. 24-0.36 H EOSINOPHILS ABSOLUTE COUNT (BEAKER) (test code = 416) 0.21 K/ L 0.04-0.36 BASOPHILS ABSOLUTE COUNT (BEAKER) (test code = 417) 0.02 K/ L 0. 01-0.08 IMMATURE GRANULOCYTES-RELATIVE PERCENT (BEAKER) (test code = 2801) 0 % 0-1 POCT-GLUCOSE [id number] 21:36:00* Test Item Value Reference Range Interpretation Comments POC-GLUCOSE METER (BEAKER) (test code = 1538) 114 mg/dL 70-110 H TESTED AT [facility] [address] [facility] [address] Troponin [id number] 21:25:00* Test Item Value Reference Range Interpretation Comments Troponin I (test code = 42211-3) <0.01 0-0.03 NIRAJ (test code = NIRAJ) Troponin I (TnI) levels must be interpreted in the context of the presenting symptoms and the clinical findings. Elevated TnI levels indicate myocardial damage, but are not specific for ischemic heart disease. Elevated TnI levels are seen in patients with other cardiac conditions (including myocarditis and congestive heart failure), and slight TnI elevations occur in patients with other conditions, including sepsis, renal failure, acidosis, acute neurological disease, and persistent tachyarrhythmia. Lab Interpretation (test code = 42523-2) [facility] CampusTROPONIN [id number] 21:25:00* Test Item Value Reference Range Interpretation Comments TROPONIN I (BEAKER) (test code = 397) < ng/mL 0.00-0.03 Troponin I (TnI) levels must be interpreted in the context of the presenting sym ptoms and the clinical findings. Elevated TnI levels indicate myocardial damage, but are not specific for ischemic heart disease. Elevated TnI levels are seen in patients with other cardiac conditions (including myocarditis and congestive h eart failure), and slight TnI elevations occur in patients with other conditions , including sepsis, renal failure, acidosis, acute neurological disease, and per sistent tachyarrhythmia.POCT-GLUCOSE [id number] 18:42:00* Test Item Value Reference Range Interpretation Comments POC-GLUCOSE METER (BEAKER) (test code = 1538) 92 mg/dL 70-110 TESTED AT [facility] [address] [address] TROPONIN [id number] 17:00:00* Test Item Value Reference Range Interpretation Comments TROPONIN I (BEAKER) (test code = 397) < ng/mL 0.00-0.03 Troponin I (TnI) levels must be interpreted in the context of the presenting sym ptoms and the clinical findings. Elevated TnI levels indicate myocardial damage, but are not specific for ischemic heart disease. Elevated TnI levels are seen in patients with other cardiac conditions (including myocarditis and congestive h eart failure), and slight TnI elevations occur in patients with other conditions , including sepsis, renal failure, acidosis, acute neurological disease, and per sistent tachyarrhythmia.POCT-GLUCOSE [id number] 14:34:00* Test Item Value Reference Range Interpretation Comments POC-GLUCOSE METER (BEAKER) (test code = 1538) 116 mg/dL 70-110 H TESTED AT [facility] [address] [address] B-type Natriuretic Factor (BNP)2019-01-30 11:42:00* Test Item Value Reference Range Interpretation Comments BNP (test code = 24624-4) <10 0-100 Lab Interpretation (test code = 22582-7) [facility] CampusB-TYPE NATRIURETIC FACTOR (BNP)2019-01-30 11:42:00 * Test Item Value Reference Range Interpretation Comments B-TYPE NATRIURETIC PEPTIDE (BEAKER) (test code = 700) < pg/mL 0-100 TROPONIN [id number] 11:04:00* Test Item Value Reference Range Interpretation Comments TROPONIN I (BEAKER) (test code = 397) < ng/mL 0.00-0.03 Troponin I (TnI) levels must be interpreted in the context of the presenting sym ptoms and the clinical findings. Elevated TnI levels indicate myocardial damage, but are not specific for ischemic heart disease. Elevated TnI levels are seen in patients with other cardiac conditions (including myocarditis and congestive h eart failure), and slight TnI elevations occur in patients with other conditions , including sepsis, renal failure, acidosis, acute neurological disease, and per sistent tachyarrhythmia.Kdssnamwa7058-58-56 10:56:00* Test Item Value Reference Range Interpretation Comments Magnesium (test code = 19565-5) 1.7 mg/dL 1.6-2.6 Lab Interpretation (test code = 08808-3) [facility] CampusMAGNESIUM2019-10-11 10:56:00* Test Item Value Reference Range Interpretation Comments MAGNESIUM (BEAKER) (test code = 627) 1.7 mg/dL 1.6-2.6 BASIC METABOLIC [id number] 10:56:00* Test Item Value Reference Range Interpretation Comments SODIUM (BEAKER) (test code = 381) 141 meq/L 136-145 POTASSIUM (BEAKER) (test code = 379) 3.4 meq/L 3.5-5.1 L CHLORIDE (BEAKER) (test code = 382) 103 meq/L 98-107 CO2 (BEAKER) (test code = 355) 29 meq/L 22-29 BLOOD UREA NITROGEN (BEAKER) (test code = 354) 15 mg/dL 7-21 CREATININE (BEAKER) (test code = 358) 1.05 mg/dL 0.57-1.25 GLUCOSE RANDOM (BEAKER) (test code = 652) 169 mg/dL 70-105 H CALCIUM (BEAKER) (test code = 697) 9.3 mg/dL 8.4-10.2 EGFR (BEAKER) (test code = 1092) 63 mL/min/1.73 sq m ESTIMATED GFR IS NOT ACCURATE CREATININE CLEARANCE IN PREDICTING GLOMERULAR FILTRATION RATE. ESTIMATED GFR IS NOT APPLICABLE FOR DIALYSIS PATIENTS. PT/[id number] 10:48:00* Test Item Value Reference Range Interpretation Comments Protime (test code = 5902-2) 13.5 11.9- 14.2 seconds INR (test code = 6301-6) 1.1 <=5.9 PTT (test code = 03055-5) 28.7 22.5- 36.0 seconds NIRAJ (test code = NIRAJ) Effective 09/17/2018: PT Refe rence Range ChangeNew: 11.9- 14.2 Previous: 11.7-14.7 RECOMMENDED COUMADIN/WARFARIN INR THERAPY RANGESSTANDARD DOSE: 2.0-3.0 Includes: PROPHYLAXIS for venous thrombosis, sys temic embolization; TREATMENT for venous thrombosis and/or pulmonary embolus.HIGH RISK: Target INR is 2.5-3.5 for patients wiht mechanical heart valves. Lab Interpretation (test code = 10117-9) Normal [facility] CampusPT/WATF7940-15-02 10:48:00* Test Item Value Reference Range Interpretation Comments PROTIME (BEAKER) (test code = 759) 13.5 seconds 11.9-14.2 INR (BEAKER) (test code = 370) 1.1 <=5.9 PARTIAL THROMBOPLASTIN TIME (BEAKER) (test code = 760) 28.7 seconds 22.5-36.0 Effective 09/17/2018: PT Reference Range ChangeNew: 11.9-14.2 Previous: 11.7-14. 7RECOMMENDED COUMADIN/WARFARIN INR THERAPY RANGESSTANDARD DOSE: 2.0-3.0 Include s: PROPHYLAXIS for venous thrombosis, systemic embolization; TREATMENT for venou s thrombosis and/or pulmonary embolus.HIGH RISK: Target INR is 2.5-3.5 for patie nts wiht mechanical heart valves.CBC W/PLT COUNT & AUTO [id number] 10:39:00* Test Item Value Reference Range Interpretation Comments WHITE BLOOD CELL COUNT (BEAKER) (test code = 775) 6.1 K/ L 3.5- 10.5 RED BLOOD CELL COUNT (BEAKER) (test code = 761) 4.41 M/ L 3.93-5 .22 HEMOGLOBIN (BEAKER) (test code = 410) 10.8 GM/DL 11.2-15.7 L HEMATOCRIT (BEAKER) (test code = 411) 35.5 % 34.1-44.9 MEAN CORPUSCULAR VOLUME (BEAKER) (test code = 753) 80.5 fL 79. 4-94.8 MEAN CORPUSCULAR HEMOGLOBIN (BEAKER) (test code = 751) 24.5 pg 25.6-32.2 L MEAN CORPUSCULAR HEMOGLOBIN CONC (BEAKER) (test code = 752) 30.4 GM/DL 32.2-35.5 L RED CELL DISTRIBUTION WIDTH (BEAKER) (test code = 412) 15.9 % 11.7-14.4 H PLATELET COUNT (BEAKER) (test code = 756) 189 K/CU MM 150-450 MEAN PLATELET VOLUME (BEAKER) (test code = 754) 10.9 fL 9.4-12 .3 NUCLEATED RED BLOOD CELLS (BEAKER) (test code = 413) 0 /100 WBC 0 -0 NEUTROPHILS RELATIVE PERCENT (BEAKER) (test code = 429) 67 % LYMPHOCYTES RELATIVE PERCENT (BEAKER) (test code = 430) 23 % MONOCYTES RELATIVE PERCENT (BEAKER) (test code = 431) 7 % EOSINOPHILS RELATIVE PERCENT (BEAKER) (test code = 432) 3 % BASOPHILS RELATIVE PERCENT (BEAKER) (test code = 437) 0 % NEUTROPHILS ABSOLUTE COUNT (BEAKER) (test code = 670) 4.12 K/ L 1.56-6.13 LYMPHOCYTES ABSOLUTE COUNT (BEAKER) (test code = 414) 1.39 K/ L 1.18-3.74 MONOCYTES ABSOLUTE COUNT (BEAKER) (test code = 415) 0.42 K/ L 0. 24-0.36 H EOSINOPHILS ABSOLUTE COUNT (BEAKER) (test code = 416) 0.18 K/ L 0.04-0.36 BASOPHILS ABSOLUTE COUNT (BEAKER) (test code = 417) 0.02 K/ L 0. 01-0.08 IMMATURE GRANULOCYTES-RELATIVE PERCENT (BEAKER) (test code = 2801) 0 % 0-1 RAD, CHEST, 2 [id number] 10:08:00Reason for exam:->CHEST PAINFINAL REPORT INDICATION: CHEST PAIN COMPARISON: December 28, 2015 TECHNIQUE: Frontal and lateral views of the chest. FINDINGS: Lungs and pleura: Clear lungs. No effusion.Heart and mediastinum: Normal heart size. Unremarkable mediastinal contours.Osseous structures: No acute abnormality.Additional findings: None. IMPRESSION: No acute intrathoracic abnormality. Signed: Narinder tuttle JR, Robert MDReport Verified Date/Time: 01/30/2019 10:08:24 Reading Loc ation: [facility] Reading Room chest 2 [id number] 10:08:00 Interface, External Ris In - 01/30/2019 10:10 AM CDTFINAL REPORT PATIENT ID: [id number] INDICATION: CHEST PAIN COMPARISON: December 28, 2015 TECHNIQUE: Frontal and lateral views of the chest. FINDINGS: Lungs and pleura: Clear lungs. No effu donnie.Heart and mediastinum: Normal heart size. Unremarkable mediastinal contours .Osseous structures: No acute abnormality.Additional findings: None. IMPRESSION : No acute intrathoracic abnormality. Signed: JR Mello Robert MDReport Verified Date/Time: 01/30/2019 10:08:24 Reading Location: [facility] Reading Room Electronically signed by: DARSHAN MELLO on 10:08 AM [facility] CampusCT ABDOMEN/PELVIS [id number] 13:34:00 [place] [address] Patient Name: GHANSHYAM SCHROEDER MR #: [id number] : 1950 Age/Sex: 67/F Req #: [id number] Adm Physician: Ordered by: ORAL FRANCIS PUBLIC RELATIONS COORDINATOR Report #: [id number] Location: ER Room/Bed: Procedure: [id number] C T/CT ABDOMEN/PELVIS WO Exam Date: 07/03/18 Exam Time : 1250 REPORT STATUS: Signed EXA M: CT Abdomen and Pelvis WITHOUT contrast INDICATION: Right abdominal pain COMPARISON: CT abdomen/pelvis, 01/22/2017 TECHNIQUE: Abdomen and pelvis were scanned utilizing a multidetector helical scanner from the lung base to the pu bic symphysis without administration of IV contrast. Absence of intravenous co ntrast decreases sensitivity for detection of focal lesions and vascular patho logy. Coronal and sagittal reformations were obtained. Routine protocol was pe rformed. Dose modulation, iterative reconstruction, and/or weight based ad justment of the mA/kV was utilized to reduce the radiation dose to as low as r easonably achievable. IV CONTRAST: None. ORAL CONTRAST: 900 cc Redicat RADIATION DOSE: Total DLP: 760.33 mGy*cm Estimated effective dose: (DLP x 0.015 x size factor) mSv COMPLICATIONS: None FINDINGS: LINES and TUBES: None. LOWER THORAX: Lung bases clear. Heart size normal. HEPATOBILIARY: No focal hepatic lesions. No biliary ductal dilation. GALLBLADDER: Surgical absence of the gallbladder with cholecystectomy clips. SPLEEN: No splenome jaylan. PANCREAS: No focal masses or ductal dilatation. ADRENALS: No adrenal nodules KIDNEYS/URETERS: No hydronephrosis. No cystic or solid mass lesions. No stones. GI TRACT: No abnormal distention, wall thicken ing, or evidence of bowel obstruction. Sigmoid diverticula with no CT evidenc e for acute diverticulitis. The proximal appendix normal, measuring 6 mm, and contains air with no wall thickening. The appendiceal tip is bulbous, measuri ng 9 mm. There is no surrounding fluid collection or free air, and the configu ration is unchanged from previous exam. PELVIC ORGANS/BLADDER: Urinary bl adder unremarkable. Uterus surgically absent. A 3.3 cm cyst is seen in the lef t adnexa and a 3.4 cm cyst is seen in the right adnexa. There are densities, p ossible surgical clips, adjacent to each of these cysts. LYMPH NODES: No dominant lymph node mass is seen in the abdomen, retroperitoneum or pelvis. VESSELS: Unenhanced abdominal aorta shows no aneurysm. Scattered calcified plaques are seen. PERITONEUM / RETROPERITONEUM: No pneumoperitoneum or asci corey. BONES: No acute or suspicious bony lesions. Degenerative changes are s een in the lumbar spine. SOFT TISSUES: Superficial surrounding soft tissu e unremarkable. IMPRESSION: 1. The proximal appendix contai ns air without inflammation. While the appendiceal tip has a slightly dilated bulbous configuration measuring 9 mm diameter, the appearance is unchanged fro m the previous exam. There is no overt evidence for acute appendicitis. 2 . No urinary tract calculus 3. Bilateral ovarian cysts. 4. Scattere d colonic diverticuli with no CT evidence for diverticulitis. Staff: Str ax Signed by: Dr. Atul Lott M.D. on 07/03/2018 2:09 PM Dictated By: ATUL LOTT MD 140 9 Transcribed By: BRYANT on 07/03/18 1409 COPY TO: ORAL FRANCIS NP B-Type Natriuretic [id number] 12:07:00* Test Item Value Reference Range Interpretation Comments B-Type Natriuretic Peptide (test code = 52768-0) < 10.0 0-100 [facility]viewProthrombin [id number] 11:49:00* Test Item Value Reference Range Interpretation Comments Prothrombin Time (test code = 5902-2) 12.3 11.9-14.5 [facility]viewProthromb Time International Ratio 2018-07-03 11:49:00* Test Item Value Reference Range Interpretation Comments Prothromb Time International Ratio (test code = 6301-6) 0.87 Oral Anticoagulant Therapy INR Values:1. Low Intensity Therapy 1.5 - 2.02 . Moderate Intensity Therapy 2.0 - 3.03. High Intensity Therapy(1) 2.5 - 3. 54. High Intensity Therapy(2) 3.0 - 4.05. Panic Value INR > 5.0 [facility]viewActivated Partial Thromboplast Time 2018-07-03 11:49:00* Test Item Value Reference Range Interpretation Comments Activated Partial Thromboplast Time (test code = 51650-6) 30.1 23.8-35.5 [facility]viewUrine [id number] 11:46:00* Test Item Value Reference Range Interpretation Comments Urine Blood (test code = 35688-5) NEGATIVE NEGATIVE [facility]viewUrine [id number] 11:46:00* Test Item Value Reference Range Interpretation Comments Urine WBC (test code = 5821-4) 6-10 0-5 H [facility]viewUrine [id number] 11:46:00* Test Item Value Reference Range Interpretation Comments Urine RBC (test code = 05974-0) NONE 0-5 [facility]viewU[facility] Vmzicetg4700-05-22 11:46:00* Test Item Value Reference Range Interpretation Comments Urine Bacteria (test code = 52292-6) MANY NONE H [facility]viewUrine Epithelial Hftqd2160-03-95 11:46:00 * Test Item Value Reference Range Interpretation Comments Urine Epithelial Cells (test code = 37904-4) MANY NONE [facility]viewCreatine Kinase [id number] 11:45:00* Test Item Value Reference Range Interpretation Comments Creatine Kinase MB (test code = 79199-8) 1.70 0-5.0 [facility]viewTroponin [id number] 11:45:00* Test Item Value Reference Range Interpretation Comments Troponin I (test code = YKV3286) 0.003 0-0.300 [facility]viewCHEST 2 [id number] 11:42:00 [place] [address] Patient Name: GHANSHYAM SCHROEDER MR #: [id number] : 1950 Age/Sex: 67/F Req #: [id number] Adm Physician: Ordered by: ORAL FRANCIS PUBLIC RELATIONS COORDINATOR Report #: [id number] Location: ER Room/Bed: Procedure: [id number] D X/CHEST 2 VIEWS Exam Date: 07/03/18 Exam Time: 1055 REPORT STATUS: Signed EXAMINATIO N: CHEST 2 VIEWS INDICATION: Chest pain. COMPARISON: Chest radi ograph 10/30/16 report, images not available for review at the time of this dic tation. FINDINGS: TUBES and LINES: None. LUNGS: Lungs are we ll inflated. Lungs are clear. There is no evidence of pneumonia or pulmonar y edema. PLEURA: No pleural effusion or pneumothorax. HEART AND MEDI ASTINUM: The cardiomediastinal silhouette is unremarkable. BONES AND S OFT TISSUES: No acute osseous lesion. Soft tissues are unremarkable. UP PER ABDOMEN: No free air under the diaphragm. IMPRESSION: No acute r adiographic abnormality. Signed by: Dr. Keyona Montoya MD on 07/03/2018 11:44 AM Dictated By: KEYONA MONTOYA MD 1144 Transcribed By: BRYANT on 07/03/18 1144 COPY TO: ORAL FRANCIS PUBLIC RELATIONS COORDINATOR Sodium Uhror4074-67-33 11:38:00* Test Item Value Reference Range Interpretation Comments Sodium Level (test code = 2951-2) 137 136-145 [facility]viewPotassium Nprdo4359-42-16 11:38:00* Test Item Value Reference Range Interpretation Comments Potassium Level (test code = 2823-3) 3.5 3.5-5.1 [facility]viewChloride Qwqmp7613-71-81 11:38:00* Test Item Value Reference Range Interpretation Comments Chloride Level (test code = 2075-0) 99 98-107 [facility]viewCarbon Dioxide Binog2923-36-03 11:38:00* Test Item Value Reference Range Interpretation Comments Carbon Dioxide Level (test code = 2028-9) 26 22-29 [facility]viewAnion Vwa6030-76-14 11:38:00* Test Item Value Reference Range Interpretation Comments Anion Gap (test code = 44543-7) 15.5 8-16 [facility]viewBlood Urea Zoblywzr1235-34-52 11:38:00* Test Item Value Reference Range Interpretation Comments Blood Urea Nitrogen (test code = 3094-0) 19 7-26 [facility]viewCreatinine2019-03-14 11:38:00* Test Item Value Reference Range Interpretation Comments Creatinine (test code = 2160-0) 1.19 0.57-1.11 H [facility]viewBUN/Creatinine Gbfpc2856-06-58 11:38:00* Test Item Value Reference Range Interpretation Comments BUN/Creatinine Ratio (test code = 3097-3) 16 6- [facility] PlainviewEstimat Glomerular Filtration Rate 2018-07-03 11:38:00* Test Item Value Reference Range Interpretation Comments Estimat Glomerular Filtration Rate (test code = 577091177) 55 >60 L Ranges were taken from the National Kidney Disease Education Program and the [facility] Foundation literature.Reference ranges:60 or greater: Fscphy07-86 ( for 3 consecutive months): Chronic kidney disease 15 or less: Kidney failureCovenant Health PlainviewGlucose Hyhmr3939-15-64 11:38:00* Test Item Value Reference Range Interpretation Comments Glucose Level (test code = UBT2254) 188 74-118 H [facility] PlainviewCalcium Imavz2125-14-84 11:38:00* Test Item Value Reference Range Interpretation Comments Calcium Level (test code = 42389-8) 9.1 8.4-10.2 [facility]viewMagnesium Zptqe0072-75-42 11:38:00* Test Item Value Reference Range Interpretation Comments Magnesium Level (test code = 30716-1) 2.4 1.3-2.1 H [facility] PlainviewTotal Wkeumgswo9333-24-60 11:38:00* Test Item Value Reference Range Interpretation Comments Total Bilirubin (test code = 1975-2) 0.5 0.2-1.2 [facility] PlainviewAspartate Amino Transf (AST/SGOT) 2018-07-03 11:38:00* Test Item Value Reference Range Interpretation Comments Aspartate Amino Transf (AST/SGOT) (test code = Aspartate Amino Transf (AST/SGOT)) 17 5-34 [facility] PlainviewAlanine Aminotransferase (ALT/SGPT) 2018-07-03 11:38:00* Test Item Value Reference Range Interpretation Comments Alanine Aminotransferase (ALT/SGPT) (test code = 1742-6) 16 0-55 [facility] PlainviewTotal Izphslh5677-81-39 11:38:00* Test Item Value Reference Range Interpretation Comments Total Protein (test code = 2885-2) 7.5 6.5-8.1 [facility] PlainviewAlbumin2019-03-14 11:38:00* Test Item Value Reference Range Interpretation Comments Albumin (test code = 1751-7) 3.5 3.5-5.0 [facility]viewGlobulin2019-03-14 11:38:00* Test Item Value Reference Range Interpretation Comments Globulin (test code = 26420-7) 4.0 2.3-3.5 H [facility] PlainviewAlbumin/Globulin Frsee4783-14-08 11:38:00 * Test Item Value Reference Range Interpretation Comments Albumin/Globulin Ratio (test code = 1759-0) 0.9 0.8-2.0 [facility]viewAlkaline Szlhvsthcoz4094-22-53 11:38:00* Test Item Value Reference Range Interpretation Comments Alkaline Phosphatase (test code = 6768-6) 95 40-150 [facility]viewCreatine Azfraw2516-25-98 11:38:00* Test Item Value Reference Range Interpretation Comments Creatine Kinase (test code = 2157-6) 187 29-168 H [facility] PlainviewAmylase Akbff8077-49-24 11:38:00* Test Item Value Reference Range Interpretation Comments Amylase Level (test code = 1798-8) 82 25-125 [facility] PlainviewLipase2019-03-14 11:38:00* Test Item Value Reference Range Interpretation Comments Lipase (test code = 3040-3) 38 8-78 [facility]viewUrine Gmqtz1129-93-62 11:34:00* Test Item Value Reference Range Interpretation Comments Urine Color (test code = 5778-6) YELLOW YELLOW [facility]viewUrine Xlzudic1409-78-18 11:34:00* Test Item Value Reference Range Interpretation Comments Urine Clarity (test code = 35172-6) CLEAR CLEAR [facility]viewUrine Specific Jcjqvbd2082-81-43 11:34:00 * Test Item Value Reference Range Interpretation Comments Urine Specific [place] (test code = 5811-5) 1.020 1.010-1.02 5 [facility]viewUrine [id number] 11:34:00* Test Item Value Reference Range Interpretation Comments Urine pH (test code = 51971-4) 6 5-7 [facility]viewUrine Leukocyte Nomemqou5732-23-96 11:34:00* Test Item Value Reference Range Interpretation Comments Urine Leukocyte Esterase (test code = 5799-2) NEGATIVE NEGATIVE [facility]viewUrine Oztgxba9885-24-60 11:34:00* Test Item Value Reference Range Interpretation Comments Urine Nitrite (test code = 88076-5) NEGATIVE NEGATIVE [facility]viewUrine Srzkqqg6369-56-10 11:34:00* Test Item Value Reference Range Interpretation Comments Urine Protein (test code = 5804-0) NEGATIVE NEGATIVE [facility]viewUrine Glucose (UA)2018-07-03 11:34:00* Test Item Value Reference Range Interpretation Comments Urine Glucose (UA) (test code = 2349-9) NEGATIVE NEGATIVE [facility]viewUrine Yytvazv7562-21-17 11:34:00* Test Item Value Reference Range Interpretation Comments Urine Ketones (test code = 49190-6) NEGATIVE NEGATIVE [facility]viewUrine Qidhuivgcrkq9269-87-47 11:34:00* Test Item Value Reference Range Interpretation Comments Urine Urobilinogen (test code = 22728-9) 0.2 0.2-1 [facility]viewUrine Mfsrgcnbv4156-63-76 11:34:00* Test Item Value Reference Range Interpretation Comments Urine Bilirubin (test code = 1978-6) NEGATIVE NEGATIVE [facility] PlainviewWhite Blood Gsaoi3503-99-26 11:26:00* Test Item Value Reference Range Interpretation Comments White Blood Count (test code = 6690-2) 8.90 4.8-10.8 [facility]viewRed Blood Jnwko3954-07-47 11:26:00* Test Item Value Reference Range Interpretation Comments Red Blood Count (test code = 789-8) 5.26 3.6-5.1 H [facility] PlainviewHemoglobin2019-03-14 11:26:00* Test Item Value Reference Range Interpretation Comments Hemoglobin (test code = 76000-6) 12.8 12.0-16.0 [facility]viewHematocrit2019-03-14 11:26:00* Test Item Value Reference Range Interpretation Comments Hematocrit (test code = 4544-3) 40.9 34.2-44.1 [facility] PlainviewMean Corpuscular Cajfac5031-96-58 11:26:00* Test Item Value Reference Range Interpretation Comments Mean Corpuscular Volume (test code = 787-2) 77.8 81-99 L [facility] PlainviewMean Corpuscular Elrvqbesrs3521-84-73 11:26:00* Test Item Value Reference Range Interpretation Comments Mean Corpuscular Hemoglobin (test code = 785-6) 24.3 28-32 L [facility] PlainviewMean Corpuscular Hemoglobin Concent 2018-07-03 11:26:00* Test Item Value Reference Range Interpretation Comments Mean Corpuscular Hemoglobin Concent (test code = 786-4) 31.3 31-35 [facility]viewRed Cell Distribution Zfasx6888-91-01 11:26:00* Test Item Value Reference Range Interpretation Comments Red Cell Distribution Width (test code = 73433-9) 15.2 11.7 -14.4 H [facility] PlainviewPlatelet Rjtsw3499-39-62 11:26:00* Test Item Value Reference Range Interpretation Comments Platelet Count (test code = 777-3) 250 140-360 [facility]viewNeutrophils (%) (Auto)2018-07-03 11:26:00 * Test Item Value Reference Range Interpretation Comments Neutrophils (%) (Auto) (test code = 51818-0) 64.3 38.7-80.0 [facility] PlainviewLymphocytes (%) (Auto)2018-07-03 11:26:00 * Test Item Value Reference Range Interpretation Comments Lymphocytes (%) (Auto) (test code = 736-9) 25.1 18.0-39.1 [facility]viewMonocytes (%) (Auto)2018-07-03 11:26:00* Test Item Value Reference Range Interpretation Comments Monocytes (%) (Auto) (test code = 5905-5) 7.1 4.4-11.3 [facility]viewEosinophils (%) (Auto)2018-07-03 11:26:00 * Test Item Value Reference Range Interpretation Comments Eosinophils (%) (Auto) (test code = 713-8) 2.8 0.0-6.0 [facility]viewBasophils (%) (Auto)2018-07-03 11:26:00* Test Item Value Reference Range Interpretation Comments Basophils (%) (Auto) (test code = 706-2) 0.3 0.0-1.0 [facility]viewIM GRANULOCYTES %2018-07-03 11:26:00* Test Item Value Reference Range Interpretation Comments IM GRANULOCYTES % (test code = IM GRANULOCYTES %) 0.4 0.0- 1.0 [facility]viewNeutrophils # (Auto)2018-07-03 11:26:00* Test Item Value Reference Range Interpretation Comments Neutrophils # (Auto) (test code = 751-8) 5.7 2.1-6.9 [facility]viewLymphocytes # (Auto)2018-07-03 11:26:00* Test Item Value Reference Range Interpretation Comments Lymphocytes # (Auto) (test code = 70791-8) 2.2 1.0-3.2 [facility] [place]viewMonocytes # (Auto)2018-07-03 11:26:00* Test Item Value Reference Range Interpretation Comments Monocytes # (Auto) (test code = 742-7) 0.6 0.2-0.8 [facility]viewEosinophils # (Auto)2018-07-03 11:26:00* Test Item Value Reference Range Interpretation Comments Eosinophils # (Auto) (test code = 711-2) 0.3 0.0-0.4 [facility]viewBasophils # (Auto)2018-07-03 11:26:00* Test Item Value Reference Range Interpretation Comments Basophils # (Auto) (test code = 704-7) 0.0 0.0-0.1 [facility] PlainviewAbsolute Immature Granulocyte (auto 2018-07-03 11:26:00* Test Item Value Reference Range Interpretation Comments Absolute Immature Granulocyte (auto (corey t code = Absolute Immature Granulocyte (auto) 0.04 0-0.1 [facility] PlainviewPOCT-GLUCOSE [id number] 11:51:00* Test Item Value Reference Range Interpretation Comments POC-GLUCOSE METER (BHUPINDERAKER) (test code = 1538) 124 mg/dL 70-110 H TESTED AT [facility] [address] [address] Creatine Kinase [id number] 15:21:00* Test Item Value Reference Range Interpretation Comments Creatine Kinase MB (test code = 85506-6) 1.40 0-5.0 [facility] PlainviewTroponin [id number] 15:21:00* Test Item Value Reference Range Interpretation Comments Troponin I (test code = FWO1597) 0.005 0-0.300 [facility] Adeyk6620-22-52 15:18:00* Test Item Value Reference Range Interpretation Comments Sodium Level (test code = 2951-2) 141 136-145 [facility]viewPotassium Mdnuv3290-04-79 15:18:00* Test Item Value Reference Range Interpretation Comments Potassium Level (test code = 2823-3) 4.1 3.5-5.1 [facility] PlainviewChloride Kglbx9833-04-66 15:18:00* Test Item Value Reference Range Interpretation Comments Chloride Level (test code = 2075-0) 102 98-107 [facility] PlainviewCarbon Dioxide Dppgb7844-63-86 15:18:00* Test Item Value Reference Range Interpretation Comments Carbon Dioxide Level (test code = 2028-9) 27 22-29 [facility] PlainviewAnion [id number] 15:18:00* Test Item Value Reference Range Interpretation Comments Anion Gap (test code = 29599-5) 16.1 8-16 H [facility] PlainviewBlood Urea Hxuhxrhm3801-87-20 15:18:00* Test Item Value Reference Range Interpretation Comments Blood Urea Nitrogen (test code = 3094-0) 17 7-26 [facility] PlainviewCreatinine2018-03-06 15:18:00* Test Item Value Reference Range Interpretation Comments Creatinine (test code = 2160-0) 1.12 0.57-1.11 H [facility] PlainviewBUN/Creatinine Ratqq2557-89-27 15:18:00* Test Item Value Reference Range Interpretation Comments BUN/Creatinine Ratio (test code = 3097-3) 15 6-25 [facility] PlainviewEstimat Glomerular Filtration Rate 2017-06-25 15:18:00* Test Item Value Reference Range Interpretation Comments Estimat Glomerular Filtration Rate (test code = 34903-5) 59 >60 L Ranges were taken from the National Kidney Disease Education Program and the [facility] Foundation literature.Reference ranges:60 or greater: Bjiiip86-00 ( for 3 consecutive months): Chronic kidney disease 15 or less: Kidney failureCovenant Health PlainviewGlucose Eawfi6532-52-20 15:18:00* Test Item Value Reference Range Interpretation Comments Glucose Level (test code = GYA6101) 100 74-118 [facility] PlainviewCalcium Ezheg8010-45-31 15:18:00* Test Item Value Reference Range Interpretation Comments Calcium Level (test code = 65256-3) 9.2 8.4-10.2 [facility] PlainviewTotal Hzjiexqfr7461-55-82 15:18:00* Test Item Value Reference Range Interpretation Comments Total Bilirubin (test code = 1975-2) 0.5 0.2-1.2 [facility] PlainviewAspartate Amino Transf (AST/SGOT) 2017-06-25 15:18:00* Test Item Value Reference Range Interpretation Comments Aspartate Amino Transf (AST/SGOT) (test code = Aspartate Amino Transf (AST/SGOT)) 23 5-34 [facility] PlainviewAlanine Aminotransferase (ALT/SGPT) 2017-06-25 15:18:00* Test Item Value Reference Range Interpretation Comments Alanine Aminotransferase (ALT/SGPT) (test code = 1742-6) 20 0-55 [facility] Pdnrzdh3714-10-55 15:18:00* Test Item Value Reference Range Interpretation Comments Total Protein (test code = 2885-2) 8.1 6.5-8.1 [facility] PlainviewAlbumin2018-03-06 15:18:00* Test Item Value Reference Range Interpretation Comments Albumin (test code = 1751-7) 3.8 3.5-5.0 [facility] PlainviewGlobulin2018-03-06 15:18:00* Test Item Value Reference Range Interpretation Comments Globulin (test code = 22420-2) 4.3 2.3-3.5 H [facility] PlainviewAlbumin/Globulin Dovot1723-17-71 15:18:00 * Test Item Value Reference Range Interpretation Comments Albumin/Globulin Ratio (test code = 1759-0) 0.9 0.8-2.0 [facility] PlainviewAlkaline Flyhqmskjrc3843-79-61 15:18:00* Test Item Value Reference Range Interpretation Comments Alkaline Phosphatase (test code = 6768-6) 85 40-150 [facility] PlainviewCreatine Eykrly1630-19-13 15:18:00* Test Item Value Reference Range Interpretation Comments Creatine Kinase (test code = 2157-6) 163 29-168 [facility] PlainviewProthrombin Riud2886-00-44 15:06:00* Test Item Value Reference Range Interpretation Comments Prothrombin Time (test code = 5902-2) 12.2 11.9-14.5 [facility] PlainviewProthromb Time International Ratio 2017-06-25 15:06:00* Test Item Value Reference Range Interpretation Comments Prothromb Time International Ratio (test code = 6301-6) 0.98 Oral Anticoagulant Therapy INR Values:1. Low Intensity Therapy 1.5 - 2.02 . Moderate Intensity Therapy 2.0 - 3.03. High Intensity Therapy(1) 2.5 - 3. 54. High Intensity Therapy(2) 3.0 - 4.05. Panic Value INR > 5.0 [facility] PlainviewActivated Partial Thromboplast Time 2017-06-25 15:06:00* Test Item Value Reference Range Interpretation Comments Activated Partial Thromboplast Time (test code = 92449-1) 25.5 23.8-35.5 [facility] PlainviewWhite Blood Yqann0184-15-00 14:47:00* Test Item Value Reference Range Interpretation Comments White Blood Count (test code = 6690-2) 9.16 4.8-10.8 [facility] PlainviewRed Blood Jfahz3322-69-41 14:47:00* Test Item Value Reference Range Interpretation Comments Red Blood Count (test code = 789-8) 5.23 3.6-5.1 H [facility] PlainviewHemoglobin2018-03-06 14:47:00* Test Item Value Reference Range Interpretation Comments Hemoglobin (test code = 51009-9) 12.9 12.0-16.0 [facility] PlainviewHematocrit2018-03-06 14:47:00* Test Item Value Reference Range Interpretation Comments Hematocrit (test code = 4544-3) 40.6 34.2-44.1 [facility] PlainviewMean Corpuscular Tvnpzs8715-22-25 14:47:00* Test Item Value Reference Range Interpretation Comments Mean Corpuscular Volume (test code = 787-2) 77.6 81-99 L [facility] PlainviewMean Corpuscular Frluwwhjuy4719-24-47 14:47:00* Test Item Value Reference Range Interpretation Comments Mean Corpuscular Hemoglobin (test code = 785-6) 24.7 28-32 L [facility] PlainviewMean Corpuscular Hemoglobin Concent 2017-06-25 14:47:00* Test Item Value Reference Range Interpretation Comments Mean Corpuscular Hemoglobin Concent (test code = 786-4) 31.8 31-35 [facility] PlainviewRed Cell Distribution Sejmg3411-83-03 14:47:00* Test Item Value Reference Range Interpretation Comments Red Cell Distribution Width (test code = 70842-3) 15.7 11.7 -14.4 H [facility] PlainviewPlatelet Zuuyq2917-94-46 14:47:00* Test Item Value Reference Range Interpretation Comments Platelet Count (test code = 777-3) 233 140-360 [facility] PlainviewNeutrophils (%) (Auto)2017-06-25 14:47:00 * Test Item Value Reference Range Interpretation Comments Neutrophils (%) (Auto) (test code = 57450-1) 57.4 38.7-80.0 [facility] PlainviewLymphocytes (%) (Auto)2017-06-25 14:47:00 * Test Item Value Reference Range Interpretation Comments Lymphocytes (%) (Auto) (test code = 736-9) 30.8 18.0-39.1 [facility] PlainviewMonocytes (%) (Auto)2017-06-25 14:47:00* Test Item Value Reference Range Interpretation Comments Monocytes (%) (Auto) (test code = 5905-5) 8.5 4.4-11.3 [facility]viewEosinophils (%) (Auto)2017-06-25 14:47:00 * Test Item Value Reference Range Interpretation Comments Eosinophils (%) (Auto) (test code = 713-8) 2.7 0.0-6.0 [facility] PlainviewBasophils (%) (Auto)2017-06-25 14:47:00* Test Item Value Reference Range Interpretation Comments Basophils (%) (Auto) (test code = 706-2) 0.3 0.0-1.0 [facility] PlainviewIM GRANULOCYTES %2017-06-25 14:47:00* Test Item Value Reference Range Interpretation Comments IM GRANULOCYTES % (test code = IM GRANULOCYTES %) 0.3 0.0- 1.0 [facility] PlainviewNeutrophils # (Auto)2017-06-25 14:47:00* Test Item Value Reference Range Interpretation Comments Neutrophils # (Auto) (test code = 751-8) 5.3 2.1-6.9 [facility] PlainviewLymphocytes # (Auto)2017-06-25 14:47:00* Test Item Value Reference Range Interpretation Comments Lymphocytes # (Auto) (test code = 89786-9) 2.8 1.0-3.2 [facility] PlainviewMonocytes # (Auto)2017-06-25 14:47:00* Test Item Value Reference Range Interpretation Comments Monocytes # (Auto) (test code = 742-7) 0.8 0.2-0.8 [facility]viewEosinophils # (Auto)2017-06-25 14:47:00* Test Item Value Reference Range Interpretation Comments Eosinophils # (Auto) (test code = 711-2) 0.3 0.0-0.4 [facility]viewBasophils # (Auto)2017-06-25 14:47:00* Test Item Value Reference Range Interpretation Comments Basophils # (Auto) (test code = 704-7) 0.0 0.0-0.1 [facility] PlainviewAbsolute Immature Granulocyte (auto 2017-06-25 14:47:00* Test Item Value Reference Range Interpretation Comments Absolute Immature Granulocyte (auto (corey t code = Absolute Immature Granulocyte (auto) 0.03 0-0.1 [facility] PlainviewUrine [id number] 14:22:00* Test Item Value Reference Range Interpretation Comments Urine WBC (test code = 5821-4) NONE 0-5 [facility] PlainviewUrine [id number] 14:22:00* Test Item Value Reference Range Interpretation Comments Urine RBC (test code = 52570-8) NONE 0-5 [facility] PlainviewUrine Ondwcucb3192-79-98 14:22:00* Test Item Value Reference Range Interpretation Comments Urine Bacteria (test code = 31281-8) NONE NONE [facility] PlainviewUrine Epithelial Qkdsi7557-05-92 14:22:00 * Test Item Value Reference Range Interpretation Comments Urine Epithelial Cells (test code = 56626-8) FEW NONE [facility] PlainviewUrine Ivbzt8220-53-49 14:06:00* Test Item Value Reference Range Interpretation Comments Urine Color (test code = 5778-6) YELLOW YELLOW [facility] PlainviewUrine Invjtjm0979-36-01 14:06:00* Test Item Value Reference Range Interpretation Comments Urine Clarity (test code = 29970-2) CLEAR CLEAR [facility] PlainviewUrine Specific Trygqwa1518-90-46 14:06:00 * Test Item Value Reference Range Interpretation Comments Urine Specific [place] (test code = 5811-5) 1.010 1.010-1.02 5 [facility] PlainviewUrine [id number] 14:06:00* Test Item Value Reference Range Interpretation Comments Urine pH (test code = 54631-9) 6.5 5-7 [facility] PlainviewUrine Leukocyte Tqgatfcj3667-48-22 14:06:00* Test Item Value Reference Range Interpretation Comments Urine Leukocyte Esterase (test code = 5799-2) NEGATIVE NEGATIVE [facility] PlainviewUrine Hqtxtif6098-78-14 14:06:00* Test Item Value Reference Range Interpretation Comments Urine Nitrite (test code = 71491-7) NEGATIVE NEGATIVE [facility] PlainviewUrine Vgurnxn0274-21-75 14:06:00* Test Item Value Reference Range Interpretation Comments Urine Protein (test code = 5804-0) NEGATIVE NEGATIVE [facility] PlainviewUrine Glucose (UA)2017-06-25 14:06:00* Test Item Value Reference Range Interpretation Comments Urine Glucose (UA) (test code = 2349-9) NEGATIVE NEGATIVE [facility] PlainviewUrine Wcrztwo1827-05-74 14:06:00* Test Item Value Reference Range Interpretation Comments Urine Ketones (test code = 67162-3) NEGATIVE NEGATIVE [facility] PlainviewUrine Gariighbustf8969-54-58 14:06:00* Test Item Value Reference Range Interpretation Comments Urine Urobilinogen (test code = 37419-7) 0.2 0.2-1 [facility] PlainviewUrine Gfyuavjlt4124-48-18 14:06:00* Test Item Value Reference Range Interpretation Comments Urine Bilirubin (test code = 1978-6) NEGATIVE NEGATIVE [facility] PlainviewUrine Uznyw3728-53-94 14:06:00* Test Item Value Reference Range Interpretation Comments Urine Blood (test code = 63881-6) NEGATIVE NEGATIVE [facility] PlainviewUrine Fbeci8470-02-67 20:15:00* Test Item Value Reference Range Interpretation Comments Urine Mucus (test code = 8247-9) FEW RARE H [facility] PlainviewAmylase Dosbj2816-06-23 20:07:00* Test Item Value Reference Range Interpretation Comments Amylase Level (test code = 1798-8) 76 25-125 [facility] PlainviewLipase2017-10-03 20:07:00* Test Item Value Reference Range Interpretation Comments Lipase (test code = 3040-3) 21 8-78 [facility] PlainviewCT BRAIN WO [facility] [address] [address] Patient Name: GHANSHYAM SCHROEDER MR #: [id number] : 1950 Age/Sex: 66/F Req #: [id number] Adm Physician: Ordered by: ORAL FRANCIS PUBLIC RELATIONS COORDINATOR Report #: [id number] Location: ER Room/Bed: Procedure: [id number] CT/CT BRAIN WO Exam Date: 0 3/06/18 Exam Time: 1450 REPORT STATUS: Signed EXAMINATION: [...] 3:14 PM Dictated By: NANCY WILLAMS MD [facility] Signed By: NANCY WILLAMS MD on 06/25/17 1514 Transcribed By: BRYANT on 06/25 1514 COPY TO: ORAL FRANCIS NP CT ABDOMEN/PELVIS [place] [address] Patient Name: GHANSHYAM SCHROEDER MR #: [id number] : 0 1950 Age/Sex: 66/F Req #: [id number] Adm Physician: Ordered by: MELIA SCHULTZ MD Report #: [id number] Location: ER Ro om/Bed: Procedure: [id number] CT/CT ABDOMEN/PELVIS WO Exam Date: 01/22/17 Exam [...] 10:13 PM Dictated By: WILLIAM AGUILAR MD [facility] Signed By: WILLIAM AGUILAR MD on 01/22/172212 Transcribed By: BRYANT on 01/22/172212 COPY TO: MELIA SCHULTZ MD
--- NOTE | 2019-09-25 23:06 | Emergency Department Note ---
History of Present Illnes History of Present Illness Chief Complaint: Neurological History of Present Illness This is a 69 year old female PRESENTS TO THE ER C/O RT SIDED HEAD PAIN RADIATING TO RT SIDE OF NECK AND FACE ONSET X3-4 WEEKS GO[employer]; patient states the pain is constant and never goes away. States right side of neck is tender to touch and worse with movement. . Historian: Patient Arrival Mode: Car Onset (how long ago): week(s) (3-4) Location: RIGHT NECK, HEAD Quality: PAIN Radiation: neck Severity: moderate Onset quality: gradual Duration (how long): week(s) (3-4) Chronicity: chronic Context: recent illness Relieving factors: none Exacerbating factors: none Associated symptoms: denies other symptoms Treatments prior to arrival: none Past Medical/Family History Physician Review I have reviewed the patient's past medical and family history. Any updates have been documented here. Past Medical History Recent Fever: No Clinical Suspicion of Infectio: No New/Unexplained Change in Ment: No Past Medical History: Hypertension, Diabetes, COPD, Asthma, CAD, Cancer, Anemia, Hyperlipedemia Other Medical History: BREAST CA,( LUMPECTOMY) HEART MURMUR TRIGEMINAL NEUROALGIA Past Surgical History: Cholecysctectomy, Hysterectomy, PCI, Tubal Ligation, Lumpectomy Other Surgery: TRIGEMINAL NEURALGIA SURGERY 20 YEARS AGO Social History Smoking Cessation: Never Smoker Alcohol Use: None Any Illegal Drug Use: No Family History Family history of heart diseas: Yes Other family history HTN, DM, CAD Other Last Tetanus: UTD Review of Systems Review of Systems Constitutional: no symptoms EENTM: no symptoms Cardiovascular: no symptoms Respiratory: no symptoms Gastrointestinal: no symptoms Genitourinary: no symptoms Musculoskeletal: as per HPI Neurological: as per HPI Psychological: no symptoms Endocrine: no symptoms Hematological/Lymphatic: no symptoms Review of other systems All other systems reviewed and negative. Physical Exam Related Data Allergies: Coded Allergies: zolpidem (Verified Allergy, Intermediate, HALLUCINATIONS, 07/03/18) dulaglutide (Verified Allergy, Mild, 07/03/18) letrozole (Verified Allergy, Mild, 07/03/18) aspirin (Unverified Allergy, Unknown, 07/03/18) codeine (Verified Allergy, Unknown, 07/03/18) hydrocodone (Verified Allergy, Unknown, 07/03/18) iodine (Verified Allergy, Unknown, 07/03/18) oxycodone (Unverified Allergy, Unknown, 07/03/18) Uncoded Allergies: ADHESIVE TAPE (Allergy, Unknown, 02/05/16) Triage Vital Signs Vital Signs Date Time Temp Pulse Resp B/P (MAP) Pulse Ox O2 Delivery O2 Flow Rate FiO2 09/25/19 22:08 99.0 72 20 193/67 95 Vital signs reviewed: Yes Physical Exam CONSTITUTIONAL Constitutional: well-developed, well-nourished, other (PT IN NAD) HENT HENT: normocephalic, atraumatic, oropharynx clear/moist, nose normal HENT L/R: left ext ear normal, right ext ear normal EYES Eyes: PERRL, conjunctivae normal NECK Neck: ROM normal, other (SOFT TISSUE TENDERNESS TO RIGHT LATERAL NECK AND CAUSES PAIN TO RADIATE TO RIGHT SIDE OF HEAD) PULMONARY Pulmonary: effort normal, breath sounds normal CARDIOVASCULAR Cardiovascular: regular rhythm, heart sounds normal, capillary refill normal, normal rate GASTROINTESTINAL Abdominal: soft, nontender, bowel sounds normal GENITOURINARY Genitourinary: exam deferred SKIN Skin: warm, dry MUSCULOSKELETAL Musculoskeletal: ROM normal NEUROLOGICAL Neurological: alert, oriented x 3, no gross motor or sensory deficits PSYCHOLOGICAL Psychological: mood/affect normal, judgement normal Results Imaging Imaging results reviewed: Yes Impressions Procedure: [id number] CT/CT CERVICAL SPINE WO Exam Date: Exam Time: REPORT STATUS: Signed History: Headache and left-sided neck pain. Comparison studies: None Technique: Axial images were obtained through the cervical region.. Coronal and sagittal images reconstructed from the axial data. Dose modulation, iterative reconstruction, and/or weight based adjustment of the mA/kV was utilized to reduce the radiation dose to as low as reasonably achievable. Intravenous contrast: None Findings: Fractures: None. Soft tissue injuries: None. Atlantoaxial articulation: Intact. Alignment: Loss of normal cervical lordosis is either positional or due to muscle spasm. No scoliosis. No subluxation. Cervicomedullary junction: No abnormalities. The foramen magnum is patent. Soft tissues: No abnormalities. Vertebrae: Chronic fracture deformity of the tip of spinous process of C6 and C7 with well-corticated margins, possibly a sequelae of prior trauma. No acute fracture infection or neoplasm. Degenerative changes: C5-C6: Moderate degenerative disc disease. Posterior disc osteophyte complex without significant canal stenosis. No significant foraminal stenosis.. IMPRESSION: 1. No acute cervical spine fracture or dislocation. Loss of normal cervical lordosis is either positional or due to muscle spasm. 2. Ligament, spinal cord and or vascular abnormalities cannot be excluded on the basis of this examination. Signed by: Dr. Genoveva Campbell M.D. on 09/25/2019 11:[address] IMPRESSION: No acute intracranial abnormality. No change since CT brain from 07/01/2019. Persistent findings: Chronic lacunar infarct in right caudate head. Critical Care Time Subsequent provider I assumed direction of critical care for this patient from another provider of my specialty. Assessment & Plan Assessment & Plan Final Impression: (1) Cervical myofascial strain Assessment & Plan Patient with right neck pain and right-sided headache for 3-4 weeks that has been constant in nature. Patient is tenderness to right lateral neck that causes had pain to get worse. CT brain and CT cervical spine ordered to eval for intracranial abnormalities, arthritic changes of cervical spine. CT brain is unchanged since previous no new findings. CT cervical spine showed nothing acute but did show degenerative changes of this cervical spine. Patient with now with his chronic right neck pain appears to be musculoskeletal in nature. She'll be discharged home with muscle relaxer Flexeril 5 mg by mouth every 8 hours when necessary muscle spasm. Patient instructed to follow up PCP next week for further evaluation of her neck pain if it continues. Depart Disposition: HOME, SELF-CARE Last Vital Signs Date Time Temp Pulse Resp B/P (MAP) Pulse Ox O2 Delivery O2 Flow Rate FiO2 09/25/19 22:08 99.0 72 20 193/67 95 Home Meds Active Scripts Sulfamethoxazole/Trimethoprim (BACTRIM DS TABLET) 1 Each Tablet, 1 TAB PO BID for 5 Days, #10 TAB 0 Refills Prov:STEVE COATSRABIA Mitchell AIR BRAKE OPERATOR 07/03/18 Reported Medications Linagliptin (TRADJENTA) 5 Mg Tablet, 5 MG PO DAILY 07/03/18 Metoprolol Tartrate (METOPROLOL TARTRATE) 50 Mg Tablet, 50 MG PO DAILY, TAB 07/03/18 Eplerenone (INSPRA) 50 Mg Tablet, 50 MG PO DAILY 07/03/18 Verapamil Hcl (VERAPAMIL ER) 120 Mg Cap24h.pel, 360 MG PO DAILY 07/03/18 Cyclobenzaprine Hcl (CYCLOBENZAPRINE HCL) 10 Mg Tablet, 10 MG PO TID PRN for MUSCLE SPASMS, TAB 07/03/18 Hydrochlorothiazide (HYDROCHLOROTHIAZIDE) 25 Mg Tablet, 50 MG PO DAILY, #30 TAB 01/25/15 Insulin Aspart (NOVOLOG) 100 Units/1 Ml Inj 03/07/13 Insulin Detemir* (LEVEMIR 3ML FLEXPEN*) 100 Units/Ml Inj, 30 UNITS SQ BEDTIME 03/07/13 MELIA SCHULTZ MD Sep 25, 2019 23:06
--- NOTE | 2019-09-25 23:10 | Diagnostic Imaging Report ---
EXAMINATION: Head CT without contrast. HISTORY:Severe headache. COMPARISON:CT brain from 07/01/2019. TECHNIQUE: Multidetector axial images were obtained from the foramen magnum to the vertex without contrast. The images were reconstructed using brain and bone algorithms. Thin section brain images were reformatted into coronal and sagittal planes. Dose modulation, iterative reconstruction, and/or weight based adjustment of the mA/kV was utilized to reduce the radiation dose to as low as reasonably achievable. Intravenous contrast: None IMAGE QUALITY: Acceptable. FINDINGS: Skull/scalp: No lytic or blastic. lesions. No surgical changes. Parenchyma: Unchanged chronic lacunar infarct in right caudate head. No acute hemorrhage, mass or acute major vascular territorial infarct. Arteries: No density suggestive of thrombosis. Dural sinuses: No abnormal density suggestive of thrombosis. Ventricles: No hydrocephalus or displacement. Extra-axial spaces: No abnormal density. Brain volume: Normal for age. Craniocervical junction: No mass, Chiari malformation, or basilar invagination. Sella: No mass. Paranasal/mastoid sinuses: Mild mucosal thickening in left sphenoid sinus with bubbly secretions. IMPRESSION: No acute intracranial abnormality. No change since CT brain from 07/01/2019. Persistent findings: Chronic lacunar infarct in right caudate head. Signed by: Dr. Genoveva Campbell M.D. on 09/25/2019 11:06 PM
--- NOTE | 2019-09-25 23:14 | Diagnostic Imaging Report ---
History: Headache and left-sided neck pain. Comparison studies: None Technique: Axial images were obtained through the cervical region.. Coronal and sagittal images reconstructed from the axial data. Dose modulation, iterative reconstruction, and/or weight based adjustment of the mA/kV was utilized to reduce the radiation dose to as low as reasonably achievable. Intravenous contrast: None Findings: Fractures: None. Soft tissue injuries: None. Atlantoaxial articulation: Intact. Alignment: Loss of normal cervical lordosis is either positional or due to muscle spasm. No scoliosis. No subluxation. Cervicomedullary junction: No abnormalities. The foramen magnum is patent. Soft tissues: No abnormalities. Vertebrae: Chronic fracture deformity of the tip of spinous process of C6 and C7 with well-corticated margins, possibly a sequelae of prior trauma. No acute fracture infection or neoplasm. Degenerative changes: C5-C6: Moderate degenerative disc disease. Posterior disc osteophyte complex without significant canal stenosis. No significant foraminal stenosis.. IMPRESSION: 1. No acute cervical spine fracture or dislocation. Loss of normal cervical lordosis is either positional or due to muscle spasm. 2. Ligament, spinal cord and or vascular abnormalities cannot be excluded on the basis of this examination. Signed by: Dr. Genoveva Campbell M.D. on 09/25/2019 11:11 PM
[2019-09-26 00:29] VITALS: BP 155/62
== END 2019-09-26 00:30 | disposition home or self-care (01) ==
LOC: ER 22:03
DX: M54.2 Cervicalgia (principal); S16.1XXA Strain of muscle, fascia and tendon at neck level, initial encounter; E11.9 Type 2 diabetes mellitus without complications; I10 Essential (primary) hypertension; E78.5 Hyperlipidemia, unspecified; I25.10 Atherosclerotic heart disease of native coronary artery without angina pectoris; G50.0 Trigeminal neuralgia; Z85.3 Personal history of malignant neoplasm of breast
CPT/HCPCS: 70450; 72125; 99283

== ENCOUNTER 2019-12-31 09:28 | Emergency (ER) | payer OTHER ==
[~2019-12-31] VITALS: Ht 162.6 cm; Wt 92.5 kg
--- OUTSIDE RECORDS SUMMARY | 2019-12-31 10:06 | XMS REPORT | Clinical Summary ---
Author Author CHRISTIE [facility] Address Unknown Phone Unavailable Care Team Providers Care Securities Dealer Name Role Phone Mikal Shaver PCP Allergies Comments Active Allergy Reactions Severity Noted Date hallucinations Zolpidem Rash High 09/10/2014 hallucinates Codeine Rash High 09/10/2014 Hydrocortisone Rash High 09/10/2014 Influenza Virus Vaccines Hives High 09/10 Iodine And Iodide Hives High 09/10/2014 Containing Products Letrozole Analogues Itching 01/31/2019 Oxycodone Rash High 09/10/2014 Oxycodone 12/28/2015 Zbb-[id number]-[id number] Ketorolac Hives High 09/10/2014 Whole arm swells [...] mg by 0 MG capsuleIndications: mouth diabetic complication nightly. causing injury to some body nerves Active melatonin 3 mg Tab tablet Take [...] 10 Take 1 tablet 30 tablet 0 201 MG tablet (10 mg total) 9 by mouth daily for 30 days. Active Problems Problem Noted Date Acute angina 01/30/2019 Chest pain 09/10/2014 Encounters Care Team Description Date Type Specialty Francisco Dudley Jr., MD Tirukkovalluri, Srilakshmi, MD Agrawal, Neeraj, MD Acute angina (HCC) (Primary Dx); Other forms of angina pectoris (HCC); Type 2 diabetes mellitus without complication, unspecified whether exterminator helper insulin use (HCC); Essential hypertension; Diabetes mellitus due to underlying condition with hyperglycemia, with long-term current use of insulin (HCC) 01/30/2019 Emergency Cardiology - 02/02/2019 01/30/2019 Travel 01/30/2019 Orders Only General Internal Me dicine after 12/30/2018 Social History Date Tobacco Use Types Packs/Day [...] ms QTC Calculatio n(Bazett) 408 ms P [place] 49 degrees R [place] 18 degrees T [place] 155 degrees Normal sinus rhythm T wave [...] ms QTC Calculatio n(Bazett) 439 ms P [place] 60 degrees R [place] 10 degrees T [place] 106 degrees Normal sinus rhythm Left ventricula r hypertroph y with repolariza tion abnormalit y Abnormal ECG When compared with ECG of 6 03:34, Nonspecifi c T wave abnormalit y has replaced inverted T waves in Inferior leads ECG 12-LEAD STAT 01/30/2019 9:42 AM CDT after 12/30/2018 Results * RHYTHM STRIP - SCAN (02/09/2019 [...] CDT) Specimen Narrative Performed At Addendum Begins [employer] REPORT STATUS:A Addendum: February 03, 2019 at [...] Report Verified Date/Time: 9 10:25:08 Reading Location: [facility] Reading Room - [address] Addendum Ends FINAL REPORT CT coronary angiography, [...] the contrast sheet scan elieser in the [facility] system for the amount and route of contrast given. This exam was performed according to [facility] departmental dose-optimisation programme, which incl udes automated [...] Coronary calcification was a nalyzed using the [employer] system software. These are the results of [...] CT analysis, ct-ffr, by an independent third alliance party vendor. Should the data be accepted for postprocessing, the result would be sent to PACS[facility] w hen available. However, the data will [...] non-vascular findings will be reviewed by the Special Education Secretary Radiologist and addendum will be added as [...] Report Verified Date/Time: 02/03/2019 10:25:08 Reading Location: [facility] Diagnostic Imaging Reading Room - [facility] [id number] Add[address]um Ends FINAL REPORT CT [...] performed. Coronary calcification was analyzed using the [employer] system software. These are the results of [...] CT analysis, ct-ffr, by an independent third alliance party vendor. Should the data be accepted for postprocessing, the result would be sent to [facility] when available. However, the data will likely [...] findings will be re viewed by the Special Education Secretary Radiologist and addendum will be added as needed. Signed: Suhas Richards MD Report Verified Date/Time: 02/02/2019 14:31:21 Performing Organization Address City/State/Zipcode Ph one Number GE RIS * Basic metabolic panel (02/02/2019 5:31 AM CDT) Only the most recent of 4 results within the time period is included. Sodium 135 (L) 136 - 145 meq/L [facility] Potassium 4.2 3.5 - 5.1 meq/L [facility] Chloride 103 98 - 107 meq/L [facility] CO2 24 22 - 29 meq/L [facility] BUN 28 (H) 7 - 21 mg/dL [facility] Creatinine 1.42 (H) 0.57 - 1.25 mg/dL [facility] Glucose 268 (H) 70 - 105 mg/dL [facility] Calcium 9.2 8.4 - 10.2 mg/dL [facility] EGFR 45Comment: ESTIMATED GFR IS mL/min/1.73 sq m [facility] NOT ACCURATE CREATININE [facility] CLEARANCE IN PREDICTING GLOMERULAR FILTRATION RATE. ESTIMATED GFR IS NOT APPLICABLE FOR DIALYSIS PATIENTS. Specimen Blood Performing Organization Address [facility] one Number CHRISTIE [address] [address] [facility] * POC-Glucose meter (02/01/2019 9:14 PM CDT) Only the most recent of 11 results within the time period is included. POC-Glucose Meter 96Comment: TESTED AT [facility] 70 - 110 mg/dL [address] [address] [facility] Specimen Blood Performing Organization Address [facility] one Number [address] [facility] * Lipid panel (01/31/2019 5:45 AM CDT) Triglycerides 250 mg/dL [facility] Cholesterol 142 mg/dL [facility] HDL 29 mg/dL [facility] LDL Calculated 63 mg/dL [facility] Specimen Blood Narrative Performed At Triglyceride Reference Range: [facility] Low Risk <150 [facility] R [id number] High Risk 200-499 Very High Risk>=500 Cholesterol Reference Range: Low Risk <200 [id number] High Risk>240 HDL Cholesterol Reference Range: Low Risk >=60 High Risk <40 LDL Cholesterol Reference Range: Optimal<100 Near [id number] [id number] [id number] Very High >=190 Performing Organization Address [facility] one Number [address] [facility] * TSH/Free T4 If Indicated (01/31/2019 4:45 AM CDT) TSH 0.84 0.35 - 4.94 uIU/mL [facility] Specimen Blood Performing Organization Address City/[facility] one Number [facility] [address] [place] [address] MEDICAL CENTER * CBC with platelet count + automated diff (01/31/2019 4:45 AM CDT) Only the most recent of 2 results within the time period is included. WBC 6.6 3.5 - 10.5 K/L [facility] RBC 4.75 3.93 - 5.22 M/L [facility] Hemoglobin 11.4 11.2 - 15.7 GM/DL [facility] Hematocrit 37.7 34.1 - 44.9 % [facility] MCV 79.4 79.4 - 94.8 fL [facility] MCH 24.0 (L) 25.6 - 32.2 pg [facility] MCHC 30.2 (L) 32.2 - 35.5 GM/DL [facility] RDW 15.9 (H) 11.7 - 14.4 % [facility] Platelets 198 150 - 450 K/CU MM [facility] MPV 10.8 9.4 - 12.3 fL [facility] nRBC 0 0 - 0 /100 WBC [facility] % Neutros 53 % [facility] % Lymphs 34 % [facility] % Monos 9 % [facility] % Eos 3 % [facility] % Baso 0 % [facility] # Neutros 3.47 1.56 - 6.13 K/L [facility] # Lymphs 2.25 1.18 - 3.74 K/L [facility] # Monos 0.61 (H) 0.24 - 0.36 K/L [facility] # Eos 0.21 0.04 - 0.36 K/L [facility] # Baso 0.02 0.01 - 0.08 K/L [facility] Immature 0 0 - 1 % [facility] Granulocytes-Relative [facility] Specimen Blood Performing Organization Address City/[facility] Ph one Number [address] [facility] * Hemoglobin A1c (01/31/2019 4:45 AM CDT) Hemoglobin A1C 9.4 (H) 4.3 - 6.1 % [facility] Specimen Blood Performing Organization Address [facility] one Number [place] [address] [facility] * Troponin I (01/30/2019 8:41 PM CDT) Only the most recent of 3 results within the time period is included. Troponin I <0.01 0.00 - 0.03 ng/mL [facility] Specimen Blood Narrative Performed At Troponin I (TnI) levels must be interpreted in the co ntext of the presenting [facility] symptoms and the clinical findings. Elevated TnI leve ls indicate myocardial [facility] damage, but are not specific for ischem ic heart disease. Elevated TnI levels are seen in patients with other cardiac con ditions (including myocarditis and congestive heart failure), and slight T nI elevations occur in patients with other conditions, including sepsis, darien al failure, acidosis, acute neurological disease, and persistent tachyarrhythmia . Performing Organization Address [facility] one Number [place] [address] [facility] * ECG 12 lead (01/30/2019 8:32 PM CDT) Only the most recent of 3 results within the time period is included. Specimen Narrative Performed At Ventricular Rate 70 BPM [facility] Atrial Rate 70 BPM P-R Interval 160 ms QRS Duration 62 ms Q-T Interval 378 ms QTC Calculation(Bazett) 408 ms P [place] 49 degrees R [place] 18 degrees T [place] 155 degrees Normal sinus rhythm T wave [...] 378 ms QTC Calculation(Bazett) 408 ms P [place] 49 degrees R [place] 18 degrees T [place] 155 degrees Normal sinus rhythm T wave inversin lateral leads consider postischemic changes Abnormal ECG When compared with ECG of 30-JAN-2019 09:42, No significant change was found Confirmed by MD GUEVARA YOCHAI ([id number]) on 02/02/2019 6:31:22 AM Performing Organization Address [facility] one Number GE MUSE * PT/aPTT (01/30/2019 10:30 AM CDT) Protime 13.5 11.9 - 14.2 seconds [facility] INR 1.1 <=5.9 [facility] PTT 28.7 22.5 - 36.0 seconds [facility] Specimen Blood Narrative Performed At Effective 09/17/2018: PT Reference Range Change [facility] New: 11.9-14.2Previous: 11.7-14.7 [facility] MEDICAL CE NTER RECOMMENDED COUMADIN/WARFARIN INR THERA PY RANGES STANDARD DOSE: 2.0-3.0Includes: PRO PHYLAXIS for venous thrombosis, systemic embolization; TREATMENT for venous thro mbosis and/or pulmonary embolus. HIGH RISK: Target INR is 2.5-3.5 for pa tients wiht mechanical heart valves. Performing Organization Address [facility] Ph one Number [address] [facility] * B-type Natriuretic Factor (BNP) (01/30/2019 10:30 AM CDT) BNP <10 0 - 100 pg/mL [facility] Specimen Blood Performing Organization Address City/[facility] Ph one Number [address] [facility] * Magnesium (01/30/2019 10:30 AM CDT) Magnesium 1.7 1.6 - 2.6 mg/dL [facility] Specimen Blood Performing Organization Address [facility] Ph one Number [address] [facility] * XR chest 2 views (01/30/2019 [...] MD Report Verified Date/Time: 10:08:24 Reading Location: [facility] [place] Reading Room Procedure Note Interface, External Ris [...] Report Verified Date/Time: 01/30/2019 10:08:24 Reading Location: [facility] Reading Room Performing Organization Address City/State/Zipcode Ph one Number GE RIS after 12/30/2018 Insurance Payer Benefit Subscriber ID Type Phone Address Plan / Group [employer] - MGD UNITED HMO xxxxxxxxx HMO/PO S CARE POS [employer] [place] [address] (Home) [place] [address] Advance Directives For more information, please contact: [facility] [address] [place] [address] Date Inactivated Comments Code Status Date Activated 02/02/2019 9:30 PM Full Code 01/30/2019 4:46 PM This code status was determined by: Patient 12/29/2015 11:35 PM Full Code 12/28/2015 4:51 PM This code status was determined by: Patient 09/11/2014 1:08 AM Full Code 09/10/2014 4:13 PM This code status was determined by: Patient
--- OUTSIDE RECORDS SUMMARY | 2019-12-31 10:06 | XMS REPORT | Continuity of Care Document ---
Author Author [employer] Organization [employer] Address Unknown Phone Unavailable Care Team Providers Care Preformer Impregnated [employer]rics Name Role Phone dVisit Information Getyoo Unavailable Un available Problems Problem Status Onset Date Classification Date Reported Comments Source Hypertension Active 09/09/2012 [facility] Asthma Active 09/09/2012 [facility] Urinary Tract Infection Active 09/09/2012 [facility] Type 2 Diabetes Mellitus - Uncomplicated, Uncontrolled Active 09/09/2012 [facility] Mixed Hyperlipoproteinemia Act ricardo 09/09/2012 [facility] Medications Medication Details Route Status Patient Instructions Ordering Provider Order Date Source BD Pen Needle Mini U/F 31G X 5 MM Miscellaneous ; Start Date: 08/28/2012 (Active) Active 08/28/2012 [facility] Pen [place] 3/16" 31G X 5 MM Miscellaneous ; Start Date: 08/09/2012 (Active) Active 08/09/2012 [facility] Janumet XR 50-1000 MG Oral Tablet Extend ed Release 24 Hour ; Start Date: 08/09/2012 (Active) Active 08/09/2012 [facility] Lunesta 3 MG Oral Tablet ; Sta rt Date: 08/09/2012 (Active) Active 08/09/2012 [facility] Levemir FlexPen 100 UNIT/ML Subcutaneous Solution ; Start Date: 07/04/2012 (Active) Active 07/04/2012 [facility] Gabapentin 300 MG Oral Capsule ; Start Date: 05/08/2012 (Active) Active 05/08/2012 [facility] Letrozole 2.5 MG Oral Tablet ; Start Date: 05/08/2012 (Active) Active 05/08/2012 [facility] TraMADol HCl 50 MG Oral Tablet ; Start Date: 05/08/2012 (Active) Active 05/08/2012 [facility] Benadryl Allergy 25 MG Oral Tablet ; Start Date: 05/08/2012 (Active) Active 05/08/2012 [facility] Citalopram Hydrobromide 20 MG Oral Tablet ; Start Date: 05/08/2012 (Active) Active 05/08/2012 [facility] Meloxicam 7.5 MG Oral Tablet ; Start Date: 05/08/2012 (Active) Active 05/08/2012 [facility] PredniSONE 20 MG Oral Tablet ; Start Date: 05/08/2012 (Active) Active 05/08/2012 [facility] Restoril 15 MG Oral Capsule ; Start Date: 05/08/2012 (Active) Active 05/08/2012 [facility] Cefdinir 300 MG Oral Capsule ; Start Date: 05/08/2012 (Active) Active 05/08/2012 [facility] Metoprolol Succinate ER 25 MG Oral Table t Extended Release 24 Hour ; Start Date: 05/08/2012 (Active) Active 05/08/2012 [facility] Marco 5-20 MG Oral Tablet (Act ricardo) Active [facility] Allergies, Adverse Reactions, Alerts Substance Category Reaction Severity Reaction type Status Date Reported Comments Source Codeine Derivatives drug aller gy drug aller gy Active [facility] Hydrocodone-Acetaminophen TABS drug allergy drug aller gy Active [facility] Ambien TABS drug allergy drug allergy Active [facility] Iodine SOLN drug allergy drug allergy Active [facility] Percodan TABS drug allergy drug allergy Active [facility] Lortab TABS drug allergy drug allergy Active [facility] Fluzone INJ drug allergy drug allergy Active [facility] Immunizations No Data Provided for This [...] ADM Date DC Date Status Source AUDIT [id number] 05/08/2012 05/09/2012 [facility] AUDIT [id number] 06/06/2012 06/06/2012 [facility] EST, Provi aster: MARIFER BERNABE, Status: Pen, Time: 1:45 PM [id number] 06/28/19 13 06/06/2012 [facility] CLARKE Provi aster: FRANCESCA BECK, Status: Pen, Time: 2:00 PM [id number] 06/28/19 13 06/06/2012 [facility] AUDIT [id number] 08/29/2012 08/29/2012 [facility] AUDIT [id number] 09/05/2012 09/06/2012 [facility] AUDIT [id number] 09/09/2012 09/09/2012 [facility] E30, Provi aster: EDYTA CASTILLO, Status: Pen, Time: 2:15 PM [id number] 10/22/19 13 09/09/2012 [facility] Procedures No Data Provided for This Section Assessment and Plan No Data Provided for This Section Plan of Care Plan of Care Date Source [QLH] MICROALBUMIN, RANDOM URINE (W/CREA TININE) 09/05/2012 Routine 09/06/2012 [facility] Social History Social History Date Source Never Drank Alcohol (Active) Marital History - Single (Active) Never A Smoker (Active) 09/09/2012 [facility] Family History Value Date S mark anthonyce Family history of Hypertension (V17.49); (Active) Family history of Diabetes Mellitus (V18.0); (Active) 09/09/2012 [facility] Family history of Diabetes Mellitus (V18 .0); (Active) Family history of Hypertension (V17.49); (Active) 09/06/2012 [facility] Family history of Hypertension (V17.49); (Active) Family history of Diabetes Mellitus (V18.0); (Active) 08/29/2012 [facility] Advance Directives Order Name Results Value Date Source Advance Directives Advance Dir ectives No Advance Directives available. 09/09/2012 [facility] Advance Directives Advance Dir ectives No Advance Directives available. 09/06/2012 [facility] Advance Directives Advance Dir ectives No Advance Directives available. 08/29/2012 [facility] Advance Directives Advance Dir ectives No Advance Directives available. 06/06/2012 [facility] Advance Directives Advance Dir ectives No Advance Directives available. 05/09/2012 [facility] Functional Status No Data Provided for This Section
--- OUTSIDE RECORDS SUMMARY | 2019-12-31 10:07 | XMS REPORT | Continuity of Care Document ---
Author Author [facility] t Organization [facility] t Address [address] [place] [address] Phone Unavailable Care Team Providers Care Workday Consultant Name Role Phone Shay GREENWOOD PCP Flores SUE, Elvira Saleh Attphys [phone] Paula SCHULTZ Attphys Unavailable Dennys RODRIGUEZ Attphys Unavailable Ludin Ann MD Attphys TREVOR OLIVEIRA Attphys Unavailable Iraj Guerrero MD Attphys Matt Dudley MD Attphys Lalo Lopez MD Attphys [phone] Gino SUE, Jose Attphys MATT DUDLEY Attphys Unavailable Becky ZUNIGA Attphys Unavailable OSCAR ANN Attphys Unavailable Ankita NEWMAN Attphys Unavailable Tab Ornelas Attphys Unavailable Sampson LUNA Attphys Unavailable LALO LOPEZ Admphys Unavailable PFLUGFELDER, OSCAR MATI Admphys Unavailable Payers Payer Name Policy Type Policy Number Effective Date Expiration Date [facility] [id number] 2018 00:00:00 [facility] CAREUNITED HMO POS SELECT CHOICExxxx xxxxxHMO/POS xxxxxxxxx [facility] Problems Condition Name Condition Details Condition Category Status Onset Date Resolution Date Last Treatment Date Treating Clinician Comments Source Acute angina Acute angina Disease Active 2019-01-30 00:00:00 [facility] Facial paresthesia Facial paresthesia Problem Active 2015-01-25 00:00:0 0 [facility] Weakness of right side of body Right sided weakness Problem Ac tive 2015-01-25 00:00:00 [facility] Chest pain Chest pain Disease Active 2014-09-10 00:00:00 [facility] Cervical myofascial strain Problem Active [facility] Hypertension Hype rtension Active 09/09/2012 [facility] Problem Active 2012-09-09 07:37:42 Kareem neva [facility] Asthma Asth ma Active 09/09/2012 [facility] Problem Active 2012-09-09 07:37:42 Quanor naheed [facility] Urinary Tract Infection Urin betty Tract Infection Active 09/09/2012 [facility] Problem Active 2012-09-09 07:37: 42 [facility] Type 2 Diabetes Mellitus - Uncomplicated, Uncontrolled Type 2 Diabetes Mellitus - Uncomplicated, Uncontrolled Active 09/09/2012 [facility] Problem Active 2012-09-09 07:37:42 [facility] Mixed Hyperlipoproteinemia Mix ed Hyperlipoproteinemia Active 09/09/2012 [facility] Problem Active 2012-09-09 07:37: 42 [facility] Allergies, Adverse Reactions, Alerts Allergy Name Allergy Type Status Severity Reaction(s) Onset Date Inacti ve Date Treating Clinician Comments Source Letrozole Analogues Drug Allergy Active Itching 2019-01-31 00:00:0 0 [facility] Iodine Allergy to substance Active 2018-07-03 00:00:00 [facility] Codeine Allergy to substance Active 2018-07-03 00:00:00 [facility] Hydrocodone Allergy to substance Active 2018-07-03 00:00:00 [facility] Oxycodone Allergy to substance Active 2018-07-03 00:00:00 [facility] Aspirin Allergy to substance Active 2018-07-03 00:00:00 [facility] Zolpidem Allergy to substance Active Moderate HALLUCINATIONS 2018-07-03 00:00:00 [facility] Letrozole Allergy to substance Active Mild 2018-07-03 00:00:00 [facility] dulaglutide Allergy to substance Active Mild 2018-07-03 00:00:00 [facility] ADHESIVE TAPE Allergy to substance Active 2016-02-05 00:00: 00 [facility] Oxycodone Vgw-Ughrzjqwn-Bdy Propensity to adverse reactions Active 2015-12-28 00:00:00 [facility] Zolpidem Drug Allergy Active Rash 2014-09-10 00:00:00 hallucinations [facility] Codeine Drug Allergy Active Rash 2014-09-10 00:00:00 hallucinates [facility] Hydrocortisone Drug Allergy Active Rash 2014-09-10 00:00:00 [facility] Influenza Virus Vaccines Drug Allergy Active Hives 2014-09-10 00: 00:00 [facility] Iodine And Iodide Containing Products Drug Allergy Active Hives 2014-09-10 00:00:00 [facility] Oxycodone Drug Allergy Active Rash 2014-09-10 00:00:00 [facility] Ketorolac Drug Allergy Active Hives 2014-09-10 00:00:00 [facility] Tuberculin Ppd Drug Allergy Active Severe 2014-09-10 00:00:00 Whole arm swells up [facility] Cetirizine Drug Allergy Active Rash 2014-09-10 00:00:00 [facility] Codeine Derivatives Codeine Derivatives Active [facility] Hydrocodone-Acetaminophen TABS Hydrocodone-Acetaminophen TABS Active [facility] Ambien TABS Ambien TABS Active [facility] Iodine SOLN Iodine SOLN Active [facility] Percodan TABS Percodan TABS Active [facility] Lortab TABS Lortab TABS Active [facility] Fluzone INJ Fluzone INJ Active [facility] Family History Family Member Diagnosis Comments Start Date Stop Date Source Unknown Family Member Family History 2012-08-29 07:36:24 2 07:36:24 [facility] Social History Social Habit Start Date Stop Date Quantity Comments Source Sex Assigned At [facility] Social History 2012-09-09 07:37:42 2012-09-09 07:37:42 [facility] Smoking Status Start Date Stop Date Source Never smoker [facility] Medications Ordered Medication Name Filled Medication Name Start Date Stop Da te Current Medication? Ordering Clinician Indication Dosage Frequency Signature (SIG) Comments Components Source aspirin 81 MG EC tablet 2019-02-03 00:00:00 2019-03-05 23:59:00 No 81mg QD Take 1 tablet (81 mg total) by mouth daily for 30 days. [facility] amLODIPine (NORVASC) 10 MG tablet 2019-02-03 00:00:00 2018 23:59:00 No 10mg QD Take 1 tablet (10 mg total) by mouth thais ly for 30 days. [facility] gabapentin (NEURONTIN) 600 MG tablet 2019-02-02 17:05: 46 2019-02-02 00:00:00 No 600mg QD Take 600 mg by mouth nightly . [facility] hydrochlorothiazide (HYDRODIURIL) 50 MG tablet 2 17:05:46 2019-02-02 00:00:00 No 50mg QD Take 50 mg by mouth daily. [facility] isosorbide mononitrate (IMDUR) 60 MG 24 hr tablet 2019-02-02 17:05:46 2019-02-02 00:00:00 No 60mg QD Take 60 mg by mouth nightly. [facility] metoprolol (TOPROL-XL) 50 MG 24 hr tablet 2018-04 17:05:46 2019-02-02 00:00:00 No 50mg QD Take 50 mg by mouth daily. [facility] ranolazine (RANEXA) 500 MG 12 hr tablet 16:41:42 2019-02-02 00:00:00 No 500mg Q.5D Take 500 mg by mouth 2 (two) ti mes daily. [facility] ranolazine (RANEXA) 1,000 mg SR tablet 2019-02-02 00:00:00 Yes 1000mg Q.5D Take 1 tablet (1,000 mg total) by mouth 2 (two) times daily. [facility] gabapentin (NEURONTIN) 600 MG tablet 2019-02-02 00:00:00 Ye s 600mg QD Take 1 tablet (600 mg total) by mouth nightly. [facility] metoprolol (TOPROL-XL) 50 MG 24 hr tablet 2019-02-02 00:00:00 Yes 50mg QD Take 1 tablet (50 mg total) by mouth daily. [facility] hydroCHLOROthiazide (HYDRODIURIL) 50 MG tablet 2019-02-02 00:00: 00 Yes 50mg QD Take 1 tablet (50 mg total) by mouth daily. [facility] verapamil (CALAN-SR) 240 MG CR tablet 2019-01-30 15:30 :18 2019-01-30 00:00:00 No 360mg QD Take 360 mg by mouth nightly. [facility] Sulfamethoxazole/Trimethoprim (Bactrim Ds Tablet) 1 Ea ch TABLET Sulfamethoxazole/Trimethoprim (Bactrim Ds Tablet) 1 Each TABLET 2018-07-03 14:44:00 Yes 1 Twice A Day [facility] melatonin 3 mg Tab tablet 2018-03-06 09:10:23 Yes Take by mouth. [facility] insulin degludec (TRESIBA FLEXTOUCH U-200) 200 unit/mL (3 mL ) InPn 2018-03-06 09:10:23 Yes Inject subcutaneously. [facility] DULoxetine (CYMBALTA) 30 MG capsule 2015-12-28 23:39:57 Yes diabetic complication causing injury to some body nerves 30mg QD Take 30 mg by mouth nightly. [facility] linagliptin 5 mg Tab 2015-12-28 23:25:04 Yes 5mg QD Take 5 mg by mouth nightly . [facility] Aspirin (Aspirin Ec) 81 Mg TABLET. Aspirin (Aspirin Ec) 81 Mg TABLET. 2015-01-27 10:39:00 2018-07-03 00:00:00 No 81 Daily [facility] Cefuroxime Axetil (Cefuroxime) 250 Mg TABLET Cefuroxim e Axetil (Cefuroxime) 250 Mg TABLET 2015-01-27 10:37:00 2018-07-03 00:00:00 No 250 Every 12 Hours [facility] Mometasone Furoate (Nasonex) 17 Gm SPRAY Mometasone Fu roate (Nasonex) 17 Gm SPRAY 2015-01-27 10:37:00 2018-07-03 00:00:00 No 2 Shahnaz y [facility] diphenhydrAMINE (BENADRYL) 25 mg capsule 2014-09-10 17:36:40 Yes 25mg Take 25 mg by mouth every night as needed for Itching (also for itching as well as sleeep aid). [facility] insulin aspart (NOVOLOG) 100 unit/mL InPn 2014-09-10 17:36:40 Yes 15U Inject 15 Units subcutaneously 3 (three) times daily with meals. [facility] insulin detemir (LEVEMIR) 100 unit/mL injection 2014-09-10 17:36 :40 Yes 45U QD Inject 45 Units subcutaneously daily. [facility] FOLIC ACID/MULTIVITS-MIN/LUT (CENTRUM SILVER ORAL) 2014-08 17:36:39 Yes 1{tbl} QD Take 1 tablet by mouth daily. [facility] cholecalciferol, vitamin D3, 1,000 unit capsule 2014-09-10 17:36 :39 Yes 1000U QD Take 1,000 Units by mouth daily. [facility] letrozole (FEMARA) 2.5 mg tablet 2014-09-10 17:36:39 Yes 2.5mg QD Take 2.5 mg by mouth daily. [facility] Marco 5-20 MG Oral Tablet 2012-09-09 07:37:42 Yes (Active) [facility] BD Pen Needle Mini U/F 31G X 5 MM Miscellaneous 2012-08-28 05:00 :00 Yes ; Start Date: 08/28/2012 (Active) [facility] Pen [place] 3/16" 31G X 5 MM Miscellaneous 2012-08-09 [...] ; Start Date: 05/08/2012 (Active) [facility] TraMADol HCl 50 MG Oral Tablet 2012-05-08 06:00:00 Yes ; Start Date: 05/08/2012 (Active) [facility] Benadryl Allergy 25 MG Oral Tablet 2012-05-08 06:00:00 Yes ; Start Date: 05/08/2012 (Active) [facility] Citalopram Hydrobromide 20 MG Oral Tablet 2012-05-08 06:00:00 Yes ; Start Date: 05/08/2012 (Active) [facility] Meloxicam 7.5 MG Oral Tablet 2012-05-08 06:00:00 Yes ; Start Date: 05/08/2012 (Active) [facility] PredniSONE 20 MG Oral Tablet 2012-05-08 06:00:00 Yes ; Start Date: 05/08/2012 (Active) [facility] Restoril 15 MG Oral Capsule 2012-05-08 06:00:00 Yes ; Start Date: 05/08/2012 (Active) [facility] Cefdinir 300 MG Oral Capsule 2012-05-08 06:00:00 Yes ; Start Date: 05/08/2012 (Active) [facility] Metoprolol Succinate ER 25 MG Oral Tablet Extended Release 2 4 Hour 2012-05-08 06:00:00 Yes ; Start Date: 05/08/2012 (Act ricardo) [facility] Cyclobenzaprine Hcl Cyclobenzaprine Hcl Yes 10 Three Times A Day as needed for Muscle Spasms [facility] Eplerenone (Inspra) 50 Mg TABLET Eplerenone (Inspra) 50 Mg TABLET Yes 50 Daily [facility] Hydrochlorothiazide Hydrochlorothiazide Yes 50 Daily [facility] Insulin Aspart (Novolog) 100 Units/1 Ml INJ Insulin As part (Novolog) 100 Units/1 Ml INJ Yes [facility] Insulin Detemir (Levemir 3ML Flexpen*) 100 Units/Ml IN J Insulin Detemir (Levemir 3ML Flexpen*) 100 Units/Ml INJ Yes 30 Bedtime [facility] Linagliptin (Tradjenta) 5 Mg TABLET Linagliptin (Tradjenta) 5 Mg TABL ET Yes 5 Daily [facility] Metoprolol Tartrate Metoprolol Tartrate Yes 50 Daily [facility] Verapamil Hcl (Verapamil Er) 120 Mg CAP24H.PEL Verapam il Hcl (Verapamil Er) 120 Mg CAP24H.PEL Yes 360 Daily [facility] Acetaminophen/Chlorpheniramine (Coricidin Hbp Tablet) 1 Each TABLET Acetaminophen/Chlorpheniramine (Coricidin Hbp Tablet) 1 Each TABLET 2018-07-03 00:00:00 No 2 Q4hrs [facility] Albuterol Sulfate (Proventil Hfa) 6.7 Gm HFA.AER.AD Al buterol Sulfate (Proventil Hfa) 6.7 Gm HFA.AER.AD 2018-07-03 00:00:00 No [facility] Gabapentin Gabapentin 2018-07-03 00:00:00 No 600 Thr ee Times A Day [facility] Isosorbide Mononitrate (Isosorbide Mononitrate Er) 30 Mg TAB.ER.24H Isosorbide Mononitrate (Isosorbide Mononitrate Er) 30 Mg TAB.ER.24H 201 12-23-13 00:00:00 No 30 Daily [facility] Letrozole Letrozole 2018-07-03 00:00:00 No 2.5 Daily [facility] Linagliptin (Tradjenta) 5 Mg TABLET Linagliptin (Tradjenta) 5 Mg TABLET 2018-07-03 00:00:00 No 5 Daily [facility] Losartan Potassium Losartan Potassium 2018-07-03 00:00:00 No 100 Daily [facility] Verapamil Hcl (Verapamil Er) 120 Mg CAP24H.PEL Verapam il Hcl (Verapamil Er) 120 Mg CAP24H.PEL 2018-07-03 00:00:00 No 240 Daily [facility] Amlodipine Bes/Olmesartan Med (Marco 5-40 Mg Tablet) 1 Each TABLET Amlodipine Bes/Olmesartan Med (Marco 5-40 Mg Tablet) 1 Each TABLET 00:00:00 No 1 Daily [facility] Citalopram Hydrobromide (Celexa) 20 Mg TABLET Citalopr am Hydrobromide (Celexa) 20 Mg TABLET 2015-01-25 00:00:00 No 20 Daily [facility] Eszopiclone (Lunesta) 3 Mg TABLET Eszopiclone (Lunesta) 3 Mg TAB LET 2015-01-25 00:00:00 No 3 Bedtime [facility] Ibuprofen (Motrin) 800 Mg TAB Ibuprofen (Motrin) 800 Mg TAB 2015-01-25 00:00:00 No 800 Three Times A Day [facility] Vital Signs Vital Name Observation Time Observation Value Comments Source Body Temperature 2019-09-26 00:29:00 98.3 [degF] [facility] Weight 2019-09-25 22:08:00 207 [lb_av] [facility] BMI (Body Mass Index) 2019-09-25 22:08:00 35.5 kg/m2 [facility] Systolic blood pressure 2019-02-02 16:16:00 112 mm[Hg] [facility] Diastolic blood pressure 2019-02-02 16:16:00 51 mm[Hg] [facility] Heart rate 2019-02-02 16:16:00 75 /min [facility] Body temperature 2019-02-02 16:16:00 36.33 Cinthya [facility] Respiratory rate 2019-02-02 16:16:00 19 /min [facility] Oxygen saturation in Arterial blood by Pulse oximetry 2018-04 16:16:00 98 [facility] Measured 2019-02-02 08:00:00 94.1 kg [facility] BMI 2019-02-02 08:00:00 35.61 kg/m2 [facility] Body height 2019-01-30 19:33:00 162.6 cm [facility] Procedures Procedure Date / Time Performed Performing Clinician [facility] Computed tomography of brain without radiopaque contrast 2019-09 00:00:00 [facility] Computed tomography of cervical spine without contrast 00:00:00 [facility] Computed tomography of brain without radiopaque contrast 00:00:00 MALOU RODRIGUEZ [facility] X-ray of chest, two views 2019-05-06 00:00:00 COLLEEN ANGUIANO [facility] RHYTHM STRIP - SCAN 2019-02-09 10:24:29 Provider, Default [facility] REPORT OF PROCEDURE - ENDOSCOPY SCAN 2019-02-04 08:20:32 Pro vider, Default Scanning [facility] RHYTHM STRIP - SCAN 2019-02-04 08:20:29 Provider, Default Scanni [facility] CTA HEART CORONARY WITH CALCIUM EVALUATION WITH FFR 13:36:00 Ingris Randolph [facility] BASIC METABOLIC PANEL (7) 2019-02-02 05:31:00 Ingris Randolph [facility] POCT-GLUCOSE METER 2019-02-01 21:14:00 Kayla Lopez i [facility] POCT-GLUCOSE METER 2019-02-01 17:09:00 Kayla Lopez i [facility] POCT-GLUCOSE METER 2019-02-01 11:38:00 Kayla Lopez i [facility] POCT-GLUCOSE METER 2019-02-01 07:15:00 Kayla Lopez i [facility] BASIC METABOLIC PANEL (7) 2019-02-01 05:13:00 Ingris Randolph [facility] POCT-GLUCOSE METER 2019-01-31 21:13:00 Kayla Lopez i [facility] POCT-GLUCOSE METER 2019-01-31 17:52:00 Kayla Lopez i [facility] POCT-GLUCOSE METER 2019-01-31 12:42:00 Kayla Lopez i [facility] POCT-GLUCOSE METER 2019-01-31 08:33:00 [facility] LIPID PANEL 2019-01-31 05:45:00 Matt Camarillo [facility] BASIC METABOLIC PANEL (7) 2019-01-31 05:45:00 Ingris Randolph [facility] HEMOGLOBIN A1C 2019-01-31 04:45:00 Matt Camarillo [facility] TSH/FREE T4 IF INDICATED 2019-01-31 04:45:00 Matt Camarillo [facility] CBC W/PLT COUNT & AUTO DIFFERENTIAL 2019-01-31 04:45:00 Ingris Randolph [facility] POCT-GLUCOSE METER 2019-01-30 21:29:00 [facility] TROPONIN I 2019-01-30 20:41:00 Matt Camarillo [facility] ECG 12-LEAD 2019-01-30 20:32:43 Unknown, Hl7 Doctor [facility] POCT-GLUCOSE METER 2019-01-30 18:40:00 Octavia, Francisco [facility] ECG 12-LEAD 2019-01-30 15:44:59 Matt Camarillo [facility] TROPONIN I 2019-01-30 15:21:00 [facility] POCT-GLUCOSE METER 2019-01-30 14:31:00 [facility] [place] BASIC METABOLIC PANEL (7) 2019-01-30 10:30:00 Octavia [facility] [place] MAGNESIUM 2019-01-30 10:30:00 [facility] B-TYPE NATRIURETIC FACTOR (BNP) 2019-01-30 10:30:00 [facility] TROPONIN I 2019-01-30 10:30:00 [facility] PT/APTT 2019-01-30 10:30:00 [facility] CBC W/PLT COUNT & AUTO DIFFERENTIAL 2019-01-30 10:30:00 [facility] CHEST 2 VIEWS 2019-01-30 10:05:00 [facility] ECG 12-LEAD 2019-01-30 09:42:00 Unknown, Hl7 Doctor [facility] Plan of Care Planned Activity Planned Date Details Comments Source Future Scheduled Test 2012-09-06 04:19:02 Plan of Care [code = 1877 6-5] [facility] Encounters Start Date/Time End Date/Time Encounter Type Admission Type [facility] Care Department Encounter ID Source 2019-11-02 10:04:24 2019-11-02 10:24:24 Office Visit Delfino Sunshine i [facility] [id number] 2019-07-01 17:54:00 2019-07-02 01:46:00 Departed Emergency Room 1 MALOU RODRIGUEZ [facility] [id number] [facility] 2019-06-03 15:46:01 2019-06-03 15:56:01 Office Visit Mati Horta [facility] [id number] 2019-05-06 16:48:00 2019-05-06 19:10:00 Departed Emergency Room 1 TREVOR OLIVEIRA [facility] [id number] [facility] 2019-02-17 15:25:39 2019-02-17 16:44:34 Office Visit Francisco Pearl [facility] [id number] 2018-12-31 11:54:25 2018-12-31 12:48:48 Office Visit Francisco Pearl [facility] [id number] 2018-12-08 14:19:48 2018-12-08 15:04:06 Office Visit Francisco Pearl [facility] [id number] 2018-11-26 15:55:07 2018-11-26 16:05:07 Office Visit Mati Horta [facility] [id number] 2018-07-03 10:13:00 2018-07-03 15:31:00 Departed Emergency Room 1 NADIA ATUL [facility] [id number] [facility] 2017-06-25 12:19:00 2017-06-25 16:19:00 Departed Emergency Room ER BRAD NEWMAN [facility] [id number] [facility] 2017-01-29 09:14:00 2017-01-29 09:14:00 [id number] 18:46:00 2017-01-22 23:01:00 Departed Emergency Room ER FIONA LUNA [facility] [id number] [facility] 2016-10-30 15:23:00 2016-10-30 15:23:00 Registered Emergency Room [facility] [id number] [facility] 2012-09-09 02:38:02 2012-09-09 02:37:42 Outpatient MHIE [facility] [id number] 2012-09-05 23:19:21 2012-09-05 23:19:02 Outpatient MHIE [facility] [id number] 2012-08-29 02:36:42 2012-08-29 02:36:24 Outpatient MHIE [facility]IE [id number] 2012-06-06 13:47:26 2012-06-06 13:47:25 Outpatient MHIE MHIE [id number] 2012-05-08 18:41:15 2012-05-08 18:40:59 Outpatient MHIE MHIE [id number] Results Test Description Test Time Test Comments Results Result Comments Source CT CERVICAL SPINE WO 2019-09-25 23:07:00 [place] [address] Patient Name: GHANSHYAM SCHROEDER MR #: [id number] : 1950 Age/Sex: 69/F Req #: [id number] Adm Physician: Ordered by: MELIA SCHULTZ MD Report #: [id number] Location: ER Room/Bed: Procedure: [id number] CT/CT CERVICAL SPINE WO Exam Date: 09/25/19 Exam Time: 2246 REPORT STATUS: Signed History: Headache and left-sided neck pain. Comparison studies: None Technique: Axial images were obtained through the cervical region.. Coronal and sagittal images reconstructed from the axial data. Dose modulation, iterative reconstruction, and/or weight based adjustment of the mA/kV was utilized to reduce the radiation dose to as low as reasonably achievable. Intravenous contrast: None Findings: Fractures: None. Soft tissue injuries: None. Atlantoaxial articulation: Intact. Alignment: Loss of normal cervical lordosis is either positional or due to muscle spasm. No scoliosis. No subluxation. Cervicomedullary junction: No abnormalities. The foramen magnum is patent. Soft tissues: No abnormalities. Vertebrae: Chronic fracture deformity of the tip of spinous process of C6 and C7 with well-corticated margins, possibly a sequelae of prior trauma. No acute fracture infection or neoplasm. Degenerative changes: C5-C6: Moderate degenerative disc disease. Posterior disc osteophyte complex without significant canal stenosis. No significant foraminal stenosis.. IMPRESSION: 1. No acute cervical spine fracture or dislocation. Loss of normal cervical lordosis is either po sitional or due to muscle spasm. 2. Ligament, spinal cord and or vascular abnormalities cannot be excluded on the basis of this examination. Signed by: Dr. Sal Campbell M.D. on 09/25/2019 11:11 PM Dictated By: SAL CAMPBELL MD 10 Transcribed By: BRYANT on 09/25/192310 COPY TO: MELIA SCHULTZ MD CT BRAIN WO 2019-09-25 23:01:00 [place] [address] Patient Name: GHANSHYAM SCHROEDER MR #: [id number] : 1950 Age/Sex: 69/F Req #: [id number] Adm Physician: Ordered by: MELIA SCHULTZ MD Report #: [id number] Location: ER Room/Bed: Procedure: [id number] CT/CT BRAIN WO Exam Date: 09/25/19 Exam Time: 2246 REPORT STATUS: Signed EXAMINATION: Head CT without contrast. HISTORY:Severe headache. COMPARISON:CT brain from 07/01/2019. TECHNIQUE: Multidetector axial images were obtained from the foramen magnum to the vertex without contrast. The images were reconstructed using brain and bone algorithms. Thin section brain images were reformatted into coronal and sagittal planes. Dose modulation, iterative reconstruction, and/or weight based adjustment of the mA/kV was utilized to reduce the radiation dose to as low as reasonably achievable. Intravenous contrast: None IMAGE QUALITY: Acceptable. FINDINGS: Skull/scalp: No lytic or blastic. le sions. No surgical changes. Parenchyma: Unchanged chronic lacunar infarct in right caudate head. No acute hemorrhage, mass or acute major vascular territorial infarct. Arteries: No density suggestive of thrombosis. Dural sinuses: No abnormal density suggestive of thrombosis. Ventricles: No hydrocephalus or displacement. Extra-axial spaces: No abnormal density. Brain volume: Normal for age. Craniocervical junction: No mass, Chiari malformation, or basilar invagination. Sella: No mass. Paranasal/mastoid sinuses: Mild mucosal thickening in left sphenoid sinus with bubbly secretions. IMPRESSION: No acute intracranial abnormality. No change since CT brain from 07/01/2019. Persistent findings: Chronic lacunar infarct in right caudate head. Signed by: Dr. Sal Campbell M.D. on 09/25/2019 11:06 PM Dictated By: SAL CAMPBELL MD 05 Transcribed By: BRYANT on 09/25/192305 COPY TO: MELIA SCHULTZ MD ANKLE 3+ VIEWS LEFT 2019-07-02 01:43:00 [place] [address] Patient Name: GHANSHYAM SCHROEDER MR #: [id number] : 1950 Age/Sex: 68/F Req #: [id number] Adm Physician: Ordered by: LILIBETH MARINA DO Report #: [id number] Location: ER Room/Bed: Procedure: [id number] DX/ANKLE 3+ VIEWS LEFT Exam Date: 07/02/19 [...] LEFT 2-3 VW (+/- PELVIS) 2019-07-01 23:44:00 [place] [address] Patient Name: GHANSHYAM SCHROEDER MR #: [id number] : 1950 Age/Sex: 68/F Req #: [id number] Adm Physician: Ordered by: LILIBETH MARINA DO Report #: [id number] Location: ER Room/Bed: Procedure: [id number] DX/HIP LEFT 2-3 VW (+/- PELVIS) Exam [...] 11:53 PM Dictated By: KEYONA MONTOYA MD Transcribed By: BRYANT on 07/01/19 1156 COPY TO: LILIBETH MARINA DO FOOT LEFT COMPLETE 2019-07-01 23:44:00 [place] [address] Patient Name: GHANSHYAM SCHROEDER MR #: [id number] : 1950 Age/Sex: 68/F Req #: [id number] Adm Physician: Ordered by: LILIBETH MARINA DO Report #: [id number] Location: ER Room/Bed: Procedure: [id number] DX/FOOT LEFT COMPLETE Exam Date: 07/01/19 Exam [...] 11:53 PM Dictated By: KEYONA MONTOYA MD [id number] Transcribed By: BRYANT on 07/01/19 3519 COPY TO: LILIBETH MARINA DO KNEE LEFT THREE VIEWS 2019-07-01 23:44:00 [place] [address] Patient Name: GHANSHYAM SCHROEDER MR #: [id number] : 1950 Age/Sex: 68/F Req #: [id number] Adm Physician: Ordered by: LILIBETH MARINA DO Report #: [id number] Location: ER Room/Bed: Procedure: [id number] DX/KNEE LEFT THREE VIEWS Exam Date: 07/01/19 [...] 11:53 PM Dictated By: KEYONA MONTOYA MD [id number] Transcribed By: BRYANT on 07/01/19 6440 COPY TO: LILIBETH MARINA DO CT BRAIN WO 2019-07-01 19:35:00 [facility] [address] [place] [address] Patient Name: GHANSHYAM SCHROEDER MR #: [id number] : 1950 Age/Sex: 68/F Req #: [id number] Adm Physician: Ordered by: MALOU RODRIGUEZ MD Report #: [id number] Location: ER Room/Bed: Procedure: [id number] CT/CT BRAIN WO Exam Date: 07/01/19 Exam [...] Level (test code = 2951-2) 144 136-145 [facility] CenterPotassium Voaxm8842-27-26 20:03:00* Test Item Value Reference Range Interpretation Comments Potassium Level (test code = 2823-3) 3.5 3.5-5.1 [facility] CenterChloride Tdlpx7003-92-94 20:03:00* Test Item Value Reference Range Interpretation Comments Chloride Level (test code = 2075-0) 104 98-107 [facility] CenterCarbon Dioxide Otahm4110-17-02 20:03:00* Test Item Value Reference Range Interpretation Comments Carbon Dioxide Level (test code = 2028-9) 29 22-29 [facility] CenterAnion Ndu8466-15-00 20:03:00* Test Item Value Reference Range Interpretation Comments Anion Gap (test code = 68766-0) 14.5 8-16 [facility] CenterBlood Urea Pkpchpbd9174-32-58 20:03:00* Test Item Value Reference Range Interpretation Comments Blood Urea Nitrogen (test code = 3094-0) 11 7-26 [facility] CenterCreatinine2020-01-15 20:03:00* Test Item Value Reference Range Interpretation Comments Creatinine (test code = 2160-0) 0.98 0.57-1.11 [facility] CenterBUN/Creatinine Dclax5782-06-53 20:03:00* Test Item Value Reference Range Interpretation Comments BUN/Creatinine Ratio (test code = 3097-3) 11 6-25 [facility] CenterEstimat Glomerular Filtration Rate 2019-05-06 20:03:00* Test Item Value Reference Range Interpretation Comments Estimat Glomerular Filtration Rate (test code = 914815326) > 60 >60 Ranges were taken from the National Kidney Disease Education Program and the [facility] [employer] literature.Reference ranges:60 or greater: Apaqev27-38 ( for 3 consecutive months): Chronic kidney disease 15 or less: Kidney failureHendrick Medical CenterGlucose Rjgai7475-71-29 20:03:00* Test Item Value Reference Range Interpretation Comments Glucose Level (test code = BZQ6191) 183 74-118 H [facility] CenterCalcium Pqdid8679-04-61 20:03:00* Test Item Value Reference Range Interpretation Comments Calcium Level (test code = 64661-9) 9.2 8.4-10.2 [facility] CenterTotal Sdmzfvcsa3729-23-69 20:03:00* Test Item Value Reference Range Interpretation Comments Total Bilirubin (test code = 1975-2) 0.3 0.2-1.2 [facility] CenterAspartate Amino Transf (AST/SGOT) 2019-05-06 20:03:00* Test Item Value Reference Range Interpretation Comments Aspartate Amino Transf (AST/SGOT) (test code = Aspartate Amino Transf (AST/SGOT)) 28 5-34 [facility] CenterAlanine Aminotransferase (ALT/SGPT) 2019-05-06 20:03:00* Test Item Value Reference Range Interpretation Comments Alanine Aminotransferase (ALT/SGPT) (test code = 1742-6) 33 0-55 [facility] CenterTotal Hlppcml3722-25-95 20:03:00* Test Item Value Reference Range Interpretation Comments Total Protein (test code = 2885-2) 7.3 6.5-8.1 [facility] CenterAlbumin2020-01-15 20:03:00* Test Item Value Reference Range Interpretation Comments Albumin (test code = 1751-7) 3.6 3.5-5.0 [facility] CenterGlobulin2020-01-15 20:03:00* Test Item Value Reference Range Interpretation Comments Globulin (test code = 79976-0) 3.7 2.3-3.5 H [facility] CenterAlbumin/Globulin Dsmtt9910-14-98 20:03:00 * Test Item Value Reference Range Interpretation Comments Albumin/Globulin Ratio (test code = 1759-0) 1.0 0.8-2.0 [facility] CenterAlkaline Aihbohonrvd4651-62-61 20:03:00* Test Item Value Reference Range Interpretation Comments Alkaline Phosphatase (test code = 6768-6) 69 40-150 [facility] CenterB-Type Natriuretic Bngzogl4006-02-59 20:03:00* Test Item Value Reference Range Interpretation Comments B-Type Natriuretic Peptide (test code = 34613-3) 16.9 0-100 [facility] CenterCreatine Lgymvg5205-20-83 20:03:00* Test Item Value Reference Range Interpretation Comments Creatine Kinase (test code = 2157-6) 187 29-168 H [facility] CenterCreatine Kinase TP8063-03-59 20:03:00* Test Item Value Reference Range Interpretation Comments Creatine Kinase MB (test code = 47480-6) 2.60 0-5.0 [facility] CenterTroponin T0112-75-92 20:03:00* Test Item Value Reference Range Interpretation Comments Troponin I (test code = EYR7159) < 0.001 0-0.300 [facility] Hxrgs8353-21-00 20:03:00* Test Item Value Reference Range Interpretation Comments Sodium Level (test code = 2951-2) 144 136-145 [facility] CenterPotassium Ekqjs1300-53-59 20:03:00* Test Item Value Reference Range Interpretation Comments Potassium Level (test code = 2823-3) 3.5 3.5-5.1 [facility] CenterChloride Heafa7358-68-81 20:03:00* Test Item Value Reference Range Interpretation Comments Chloride Level (test code = 2075-0) 104 98-107 [facility] CenterCarbon Dioxide Sfsgy2899-76-71 20:03:00* Test Item Value Reference Range Interpretation Comments Carbon Dioxide Level (test code = 2028-9) 29 22-29 [facility] CenterAnion Cmh6152-88-77 20:03:00* Test Item Value Reference Range Interpretation Comments Anion Gap (test code = 14622-2) 14.5 8-16 [facility] CenterBlood Urea Rzeltokd6025-83-62 20:03:00* Test Item Value Reference Range Interpretation Comments Blood Urea Nitrogen (test code = 3094-0) 11 7-26 [facility] CenterCreatinine2020-01-15 20:03:00* Test Item Value Reference Range Interpretation Comments Creatinine (test code = 2160-0) 0.98 0.57-1.11 [facility] CenterBUN/Creatinine Tmwgp8195-16-90 20:03:00* Test Item Value Reference Range Interpretation Comments BUN/Creatinine Ratio (test code = 3097-3) 11 - [facility] CenterEstimat Glomerular Filtration Rate 2019-05-06 20:03:00* Test Item Value Reference Range Interpretation Comments Estimat Glomerular Filtration Rate (test code = 970663801) > 60 >60 Ranges were taken from the National Kidney Disease Education Program and the [facility] Kid[facility] Foundation literature.Reference ranges:60 or greater: Jtdris10-19 ( for 3 consecutive months): Chronic kidney disease 15 or less: Kidney failureHendrick Medical CenterGlucose Twepw2078-04-92 20:03:00* Test Item Value Reference Range Interpretation Comments Glucose Level (test code = DRQ8506) 183 74-118 H [facility] CenterCalcium Ohxwp9737-11-37 20:03:00* Test Item Value Reference Range Interpretation Comments Calcium Level (test code = 88298-3) 9.2 8.4-10.2 [facility] CenterTotal Ppakwivfj0033-51-14 20:03:00* Test Item Value Reference Range Interpretation Comments Total Bilirubin (test code = 1975-2) 0.3 0.2-1.2 [facility] CenterAspartate Amino Transf (AST/SGOT) 2019-05-06 20:03:00* Test Item Value Reference Range Interpretation Comments Aspartate Amino Transf (AST/SGOT) (test code = Aspartate Amino Transf (AST/SGOT)) 28 5-34 [facility] CenterAlanine Aminotransferase (ALT/SGPT) 2019-05-06 20:03:00* Test Item Value Reference Range Interpretation Comments Alanine Aminotransferase (ALT/SGPT) (test code = 1742-6) 33 0-55 [facility] CenterTotal Tjmhyil3346-68-63 20:03:00* Test Item Value Reference Range Interpretation Comments Total Protein (test code = 2885-2) 7.3 6.5-8.1 [facility] CenterAlbumin2020-01-15 20:03:00* Test Item Value Reference Range Interpretation Comments Albumin (test code = 1751-7) 3.6 3.5-5.0 [facility] CenterGlobulin2020-01-15 20:03:00* Test Item Value Reference Range Interpretation Comments Globulin (test code = 50019-2) 3.7 2.3-3.5 H [facility] CenterAlbumin/Globulin Bzpgz5941-89-04 20:03:00 * Test Item Value Reference Range Interpretation Comments Albumin/Globulin Ratio (test code = 1759-0) 1.0 0.8-2.0 [facility] CenterAlkaline Dzqbhgfxzlz7584-98-28 20:03:00* Test Item Value Reference Range Interpretation Comments Alkaline Phosphatase (test code = 6768-6) 69 40-150 [facility] CenterB-Type Natriuretic Flynkmb8194-73-56 20:03:00* Test Item Value Reference Range Interpretation Comments B-Type Natriuretic Peptide (test code = 69538-2) 16.9 0-100 [facility] CenterCreatine Ygskmc7505-21-14 20:03:00* Test Item Value Reference Range Interpretation Comments Creatine Kinase (test code = 2157-6) 187 29-168 H [facility] CenterCreatine Kinase TD5559-86-26 20:03:00* Test Item Value Reference Range Interpretation Comments Creatine Kinase MB (test code = 91528-9) 2.60 0-5.0 [facility] CenterTroponin Q2981-80-90 20:03:00* Test Item Value Reference Range Interpretation Comments Troponin I (test code = SQE1163) < 0.001 0-0.300 [facility] CenterInfluenza Virus Types A,B Antigen 2019-05-06 19:46:00* Test Item Value Reference Range Interpretation Comments Influenza Virus Types A,B Antigen (test code = 67602-6) NEGATIVE NEGATIVE [facility] CenterInfluenza Virus Types A,B Antigen 2019-05-06 19:46:00* Test Item Value Reference Range Interpretation Comments Influenza Virus Types A,B Antigen (test code = 02847-2) NEGATIVE NEGATIVE [facility] CenterProthrombin Tmdt8643-46-63 19:34:00* Test Item Value Reference Range Interpretation Comments Prothrombin Time (test code = 5902-2) 11.8 11.9-14.5 L [facility] CenterProthromb Time International Ratio 2019-05-06 19:34:00* Test Item Value Reference Range Interpretation Comments Prothromb Time International Ratio (test code = 6301-6) 0.82 Oral Anticoagulant Therapy INR Values:1. Low Intensity Therapy 1.5 - 2.02 . Moderate Intensity Therapy 2.0 - 3.03. High Intensity Therapy(1) 2.5 - 3. 54. High Intensity Therapy(2) 3.0 - 4.05. Panic Value INR > 5.0 [facility] CenterActivated Partial Thromboplast Time 2019-05-06 19:34:00* Test Item Value Reference Range Interpretation Comments Activated Partial Thromboplast Time (test code = 84719-5) 26.3 23.8-35.5 [facility] CenterProthrombin Modp3482-07-05 19:34:00* Test Item Value Reference Range Interpretation Comments Prothrombin Time (test code = 5902-2) 11.8 11.9-14.5 L [facility] CenterProthromb Time International Ratio 2019-05-06 19:34:00* Test Item Value Reference Range Interpretation Comments Prothromb Time International Ratio (test code = 6301-6) 0.82 Oral Anticoagulant Therapy INR Values:1. Low Intensity Therapy 1.5 - 2.02 . Moderate Intensity Therapy 2.0 - 3.03. High Intensity Therapy(1) 2.5 - 3. 54. High Intensity Therapy(2) 3.0 - 4.05. Panic Value INR > 5.0 [facility] CenterActivated Partial Thromboplast Time 2019-05-06 19:34:00* Test Item Value Reference Range Interpretation Comments Activated Partial Thromboplast Time (test code = 82515-7) 26.3 23.8-35.5 [facility] CenterWhite Blood Jqxdf6275-27-55 19:27:00* Test Item Value Reference Range Interpretation Comments White Blood Count (test code = 6690-2) 6.17 4.8-10.8 [facility] CenterRed Blood Gevig7053-40-72 19:27:00* Test Item Value Reference Range Interpretation Comments Red Blood Count (test code = 789-8) 5.34 3.6-5.1 H [facility] CenterHemoglobin2020-01-15 19:27:00* Test Item Value Reference Range Interpretation Comments Hemoglobin (test code = 06509-7) 12.9 12.0-16.0 [facility] CenterHematocrit2020-01-15 19:27:00* Test Item Value Reference Range Interpretation Comments Hematocrit (test code = 4544-3) 42.1 34.2-44.1 [facility] CenterMean Corpuscular Qbwfoc0401-02-97 19:27:00* Test Item Value Reference Range Interpretation Comments Mean Corpuscular Volume (test code = 787-2) 78.8 81-99 L [facility] CenterMean Corpuscular Ickwjuhaxj2208-99-21 19:27:00* Test Item Value Reference Range Interpretation Comments Mean Corpuscular Hemoglobin (test code = 785-6) 24.2 28-32 L [facility] CenterMean Corpuscular Hemoglobin Concent 2019-05-06 19:27:00* Test Item Value Reference Range Interpretation Comments Mean Corpuscular Hemoglobin Concent (test code = 786-4) 30.6 31-35 L [facility] CenterRed Cell Distribution Zsehg1141-04-32 19:27:00* Test Item Value Reference Range Interpretation Comments Red Cell Distribution Width (test code = 27144-3) 14.8 11.7 -14.4 H [facility] CenterPlatelet Hzeew7889-37-94 19:27:00* Test Item Value Reference Range Interpretation Comments Platelet Count (test code = 777-3) 276 140-360 [facility] CenterNeutrophils (%) (Auto)2019-05-06 19:27:00 * Test Item Value Reference Range Interpretation Comments Neutrophils (%) (Auto) (test code = 46643-8) 50.5 38.7-80.0 [facility] CenterLymphocytes (%) (Auto)2019-05-06 19:27:00 * Test Item Value Reference Range Interpretation Comments Lymphocytes (%) (Auto) (test code = 736-9) 37.1 18.0-39.1 [facility] CenterMonocytes (%) (Auto)2019-05-06 19:27:00* Test Item Value Reference Range Interpretation Comments Monocytes (%) (Auto) (test code = 5905-5) 7.9 4.4-11.3 [facility] CenterEosinophils (%) (Auto)2019-05-06 19:27:00 * Test Item Value Reference Range Interpretation Comments Eosinophils (%) (Auto) (test code = 713-8) 3.7 0.0-6.0 [facility] CenterBasophils (%) (Auto)2019-05-06 19:27:00* Test Item Value Reference Range Interpretation Comments Basophils (%) (Auto) (test code = 706-2) 0.5 0.0-1.0 [facility] CenterIM GRANULOCYTES %2019-05-06 19:27:00* Test Item Value Reference Range Interpretation Comments IM GRANULOCYTES % (test code = IM GRANULOCYTES %) 0.3 0.0- 1.0 [facility] CenterNeutrophils # (Auto)2019-05-06 19:27:00* Test Item Value Reference Range Interpretation Comments Neutrophils # (Auto) (test code = 751-8) 3.1 2.1-6.9 [facility] CenterLymphocytes # (Auto)2019-05-06 19:27:00* Test Item Value Reference Range Interpretation Comments Lymphocytes # (Auto) (test code = 46105-5) 2.3 1.0-3.2 [facility] CenterMonocytes # (Auto)2019-05-06 19:27:00* Test Item Value Reference Range Interpretation Comments Monocytes # (Auto) (test code = 742-7) 0.5 0.2-0.8 [facility] CenterEosinophils # (Auto)2019-05-06 19:27:00* Test Item Value Reference Range Interpretation Comments Eosinophils # (Auto) (test code = 711-2) 0.2 0.0-0.4 [facility] CenterBasophils # (Auto)2019-05-06 19:27:00* Test Item Value Reference Range Interpretation Comments Basophils # (Auto) (test code = 704-7) 0.0 0.0-0.1 [facility] CenterAbsolute Immature Granulocyte (auto 2019-05-06 19:27:00* Test Item Value Reference Range Interpretation Comments Absolute Immature Granulocyte (auto (corey t code = Absolute Immature Granulocyte (auto) 0.02 0-0.1 [facility] CenterWhite Blood Qaccx6487-21-81 19:27:00* Test Item Value Reference Range Interpretation Comments White Blood Count (test code = 6690-2) 6.17 4.8-10.8 [facility] CenterRed Blood Xoptz0150-68-20 19:27:00* Test Item Value Reference Range Interpretation Comments Red Blood Count (test code = 789-8) 5.34 3.6-5.1 H [facility] CenterHemoglobin2020-01-15 19:27:00* Test Item Value Reference Range Interpretation Comments Hemoglobin (test code = 35907-8) 12.9 12.0-16.0 [facility] CenterHematocrit2020-01-15 19:27:00* Test Item Value Reference Range Interpretation Comments Hematocrit (test code = 4544-3) 42.1 34.2-44.1 [facility] CenterMean Corpuscular Ifuqgy4904-39-46 19:27:00* Test Item Value Reference Range Interpretation Comments Mean Corpuscular Volume (test code = 787-2) 78.8 81-99 L [facility] CenterMean Corpuscular Fjcycrdxnb1247-47-57 19:27:00* Test Item Value Reference Range Interpretation Comments Mean Corpuscular Hemoglobin (test code = 785-6) 24.2 28-32 L [facility] CenterMean Corpuscular Hemoglobin Concent 2019-05-06 19:27:00* Test Item Value Reference Range Interpretation Comments Mean Corpuscular Hemoglobin Concent (test code = 786-4) 30.6 31-35 L [facility] CenterRed Cell Distribution Fqjuc6996-01-77 19:27:00* Test Item Value Reference Range Interpretation Comments Red Cell Distribution Width (test code = 86800-9) 14.8 11.7 -14.4 H [facility] CenterPlatelet Cteza6873-69-87 19:27:00* Test Item Value Reference Range Interpretation Comments Platelet Count (test code = 777-3) 276 140-360 [facility] CenterNeutrophils (%) (Auto)2019-05-06 19:27:00 * Test Item Value Reference Range Interpretation Comments Neutrophils (%) (Auto) (test code = 22065-4) 50.5 38.7-80.0 [facility] CenterLymphocytes (%) (Auto)2019-05-06 19:27:00 * Test Item Value Reference Range Interpretation Comments Lymphocytes (%) (Auto) (test code = 736-9) 37.1 18.0-39.1 [facility] CenterMonocytes (%) (Auto)2019-05-06 19:27:00* Test Item Value Reference Range Interpretation Comments Monocytes (%) (Auto) (test code = 5905-5) 7.9 4.4-11.3 [facility] CenterEosinophils (%) (Auto)2019-05-06 19:27:00 * Test Item Value Reference Range Interpretation Comments Eosinophils (%) (Auto) (test code = 713-8) 3.7 0.0-6.0 [facility] CenterBasophils (%) (Auto)2019-05-06 19:27:00* Test Item Value Reference Range Interpretation Comments Basophils (%) (Auto) (test code = 706-2) 0.5 0.0-1.0 [facility] CenterIM GRANULOCYTES %2019-05-06 19:27:00* Test Item Value Reference Range Interpretation Comments IM GRANULOCYTES % (test code = IM GRANULOCYTES %) 0.3 0.0- 1.0 [facility] CenterNeutrophils # (Auto)2019-05-06 19:27:00* Test Item Value Reference Range Interpretation Comments Neutrophils # (Auto) (test code = 751-8) 3.1 2.1-6.9 [facility] CenterLymphocytes # (Auto)2019-05-06 19:27:00* Test Item Value Reference Range Interpretation Comments Lymphocytes # (Auto) (test code = 83909-0) 2.3 1.0-3.2 [facility] CenterMonocytes # (Auto)2019-05-06 19:27:00* Test Item Value Reference Range Interpretation Comments Monocytes # (Auto) (test code = 742-7) 0.5 0.2-0.8 [facility] CenterEosinophils # (Auto)2019-05-06 19:27:00* Test Item Value Reference Range Interpretation Comments Eosinophils # (Auto) (test code = 711-2) 0.2 0.0-0.4 [facility] CenterBasophils # (Auto)2019-05-06 19:27:00* Test Item Value Reference Range Interpretation Comments Basophils # (Auto) (test code = 704-7) 0.0 0.0-0.1 [facility] CenterAbsolute Immature Granulocyte (auto 2019-05-06 19:27:00* Test Item Value Reference Range Interpretation Comments Absolute Immature Granulocyte (auto (corey t code = Absolute Immature Granulocyte (auto) 0.02 0-0.1 [facility] CenterCHEST 2 AWPHN8452-24-10 18:54:00 [place] [address] Patient Name: GHANSHYAM SCHROEDER MR #: [id number] : 1950 Age/Sex: 68/F Req #: [id number] Adm Physician: Ordered by: COLLEEN ANGUIANO CUTLERY GRINDER Report #: [id number] Location: ER Room/Bed: Procedure: [id number] DX /CHEST 2 VIEWS Exam Date: 05/06/19 [...] BRYANT on 05/06/191854 COPY TO: COLLEEN ANGUIANO CUTLERY GRINDER Blood leukocytes automated count (number/volume)2019-05-06 18:00:00* Test Item Value Reference Range Interpretation Comments White Blood Count (test code = 6690-2) 6.17 4.8-10.8 [facility] CenterBlood erythrocytes automated count (number/volume)2019-05-06 18:00:00* Test Item Value Reference Range Interpretation Comments Red Blood Count (test code = 789-8) 5.34 3.6-5.1 [facility] CenterBlood hemoglobin measurement (moles/volume)2019-05-06 18:00:00* Test Item Value Reference Range Interpretation Comments Hemoglobin (test code = 45749-4) 12.9 12.0-16.0 [facility] CenterAutomated blood hematocrit (volume fraction)2019-05-06 18:00:00* Test Item Value Reference Range Interpretation Comments Hematocrit (test code = 4544-3) 42.1 34.2-44.1 [facility] CenterAutomated erythrocyte mean corpuscular twjnkc6109-94-98 18:00:00* Test Item Value Reference Range Interpretation Comments Mean Corpuscular Volume (test code = 787-2) 78.8 81-99 [facility] CenterAutomated erythrocyte mean corpuscular hemoglobin (mass per erythrocyte)2019-05-06 18:00:00* Test Item Value Reference Range Interpretation Comments Mean Corpuscular Hemoglobin (test code = 785-6) 24.2 28-32 [facility] CenterAutat[facility] erythrocyte mean corpuscular hemoglobin concentration measurement (mass/volume)2019-05-06 18:00:00* Test Item Value Reference Range Interpretation Comments Mean Corpuscular Hemoglobin Concent (test code = 786-4) 30.6 31-35 [facility] CenterRDW PcePp-Zzh2420-73-15 18:00:00* Test Item Value Reference Range Interpretation Comments Red Cell Distribution Width (test code = 96523-8) 14.8 11.7 -14.4 [facility] platelet count (count/volume)2019-05-06 18:00:00* Test Item Value Reference Range Interpretation Comments Platelet Count (test code = 777-3) 276 140-360 [facility] CenterAutfirsthealth moore [facility] hospitaled blood segmented neutrophil count as percentage of total rgowowkjnn3419-30-28 18:00:00* Test Item Value Reference Range Interpretation Comments Neutrophils (%) (Auto) (test code = 59156-1) 50.5 38.7-80.0 [facility] CenterAutfirsthealth moore [facility] hospitaled blood lymphocyte count as percentage ot total chtmbgwtjp6071-57-62 18:00:00* Test Item Value Reference Range Interpretation Comments Lymphocytes (%) (Auto) (test code = 736-9) 37.1 18.0-39.1 [facility] CenterAutfirsthealth mo[facility] hospitaled blood monocyte count as percentage of total ckmitpgltw3908-14-42 18:00:00* Test Item Value Reference Range Interpretation Comments Monocytes (%) (Auto) (test code = 5905-5) 7.9 4.4-11.3 [facility] CenterAutomated blood eosinophil count as percentage of total uteguwayzz8072-90-70 18:00:00* Test Item Value Reference Range Interpretation Comments Eosinophils (%) (Auto) (test code = 713-8) 3.7 0.0-6.0 [facility] CenterAutomated blood basophil count as percentage of total mbimopyqlc2576-86-10 18:00:00* Test Item Value Reference Range Interpretation Comments Basophils (%) (Auto) (test code = 706-2) 0.5 0.0-1.0 [facility] CenterFluoroscopic procedure less than one hour fiwhqinr6504-26-81 18:00:00* Test Item Value Reference Range Interpretation Comments IM GRANULOCYTES % (test code = IM GRANULOCYTES %) 0.3 0.0- 1.0 [facility] CenterAutomated blood neutrophil count 2019-05-06 18:00:00* Test Item Value Reference Range Interpretation Comments Neutrophils # (Auto) (test code = 751-8) 3.1 2.1-6.9 [facility] CenterBlood lymphocytes count (number/volume) 2019-05-06 18:00:00* Test Item Value Reference Range Interpretation Comments Lymphocytes # (Auto) (test code = 86968-3) 2.3 1.0-3.2 [facility] CenterBlood monocytes automated count (number/volume)2019-05-06 18:00:00* Test Item Value Reference Range Interpretation Comments Monocytes # (Auto) (test code = 742-7) 0.5 0.2-0.8 [facility] CenterAutomated blood eosinophil count 2019-05-06 18:00:00* Test Item Value Reference Range Interpretation Comments Eosinophils # (Auto) (test code = 711-2) 0.2 0.0-0.4 [facility] CenterAutomated blood basophil count (count/volume)2019-05-06 18:00:00* Test Item Value Reference Range Interpretation Comments Basophils # (Auto) (test code = 704-7) 0.0 0.0-0.1 [facility] CenterFluoroscopic procedure less than one hour [id number] 18:00:00* Test Item Value Reference Range Interpretation Comments Absolute Immature Granulocyte (auto (corey t code = Absolute Immature Granulocyte (auto) 0.02 0-0.1 [facility] CenterProthrombin time (PT) in platelet poor plasma by coagulation [id number] 18:00:00* Test Item Value Reference Range Interpretation Comments Prothrombin Time (test code = 5902-2) 11.8 11.9-14.5 [facility] CenterINR in Platelet poor plasma by Coagulation zfsgm8394-40-02 18:00:00* Test Item Value Reference Range Interpretation Comments Prothromb Time International Ratio (test code = 6301-6) 0.82 Oral Anticoagulant Therapy INR Values:1. Low Intensity Therapy 1.5 - 2.02 . Moderate Intensity Therapy 2.0 - 3.03. High Intensity Therapy(1) 2.5 - 3. 54. High Intensity Therapy(2) 3.0 - 4.05. Panic Value INR > 5.0 [facility] CenterActivated partial thromboplastin time (aPTT) in platelet poor plasma by coagulation bvhid2819-89-68 18:00:00* Test Item Value Reference Range Interpretation Comments Activated Partial Thromboplast Time (test code = 79466-8) 26.3 23.8-35.5 [facility] plasma sodium measurement (moles/volume)2019-05-06 18:00:00* Test Item Value Reference Range Interpretation Comments Sodium Level (test code = 2951-2) 144 136-145 [facility] or plasma potassium measurement (moles/volume)2019-05-06 18:00:00* Test Item Value Reference Range Interpretation Comments Potassium Level (test code = 2823-3) 3.5 3.5-5.1 [facility] or plasma chloride measurement (moles/volume)2019-05-06 18:00:00* Test Item Value Reference Range Interpretation Comments Chloride Level (test code = 2075-0) 104 98-107 [facility] CenterInfluenza virus A and B antigen identification by uafguadzotyklvdrud9328-94-80 18:00:00* Test Item Value Reference Range Interpretation Comments Influenza Virus Types A,B Antigen (test code = 27991-0) NEGATIVE NEGATIVE [facility]um or plasma carbon dioxide, total measurement (moles/volume)2019-05-06 18:00:00* Test Item Value Reference Range Interpretation Comments Carbon Dioxide Level (test code = 2028-9) 29 22-29 [facility] or plasma anion hzo6999-83-71 18:00:00* Test Item Value Reference Range Interpretation Comments Anion Gap (test code = 47485-3) 14.5 8-16 [facility] or plasma urea nitrogen measurement (mass/volume)2019-05-06 18:00:00* Test Item Value Reference Range Interpretation Comments Blood Urea Nitrogen (test code = 3094-0) 11 7-26 [facility] or plasma creatinine measurement (mass/volume)2019-05-06 18:00:00* Test Item Value Reference Range Interpretation Comments Creatinine (test code = 2160-0) 0.98 0.57-1.11 [facility] or plasma urea nitrogen/creatinine mass pmuzg7741-82-99 18:00:00* Test Item Value Reference Range Interpretation Comments BUN/Creatinine Ratio (test code = 3097-3) 11 6-25 [facility] CenterEstimated glomerular filtration rate (GFR) fnjhwqgumuayw0349-70-44 18:00:00* Test Item Value Reference Range Interpretation Comments Estimat Glomerular Filtration Rate (test code = 365769710) > 60 >60 Ranges were taken from the National Kidney Disease Education Program and the [facility] [employer] [facility] Kid[employer] Foundation literature.Reference ranges:60 or greater: Kijcyo79-10 ( for 3 consecutive months): Chronic kidney disease 15 or less: Kidney failureHendrick Medical CenterGlucose lxukglgslqs8052-90-36 18:00:00* Test Item Value Reference Range Interpretation Comments Glucose Level (test code = GIK4085) 183 74-118 [facility] or plasma calcium measurement (mass/volume)2019-05-06 18:00:00* Test Item Value Reference Range Interpretation Comments Calcium Level (test code = 25203-0) 9.2 8.4-10.2 [facility]um or plasma total bilirubin measurement (mass/volume)2019-05-06 18:00:00* Test Item Value Reference Range Interpretation Comments Total Bilirubin (test code = 1975-2) 0.3 0.2-1.2 [facility] CenterFluoroscopic procedure less than one hour tbnyzjwz6042-76-70 18:00:00* Test Item Value Reference Range Interpretation Comments Aspartate Amino Transf (AST/SGOT) (test code = Aspartate Amino Transf (AST/SGOT)) 28 5-34 [facility]um or plasma alanine aminotransferase measurement (enzymatic activity/volume)2019-05-06 18:00:00* Test Item Value Reference Range Interpretation Comments Alanine Aminotransferase (ALT/SGPT) (test code = 1742-6) 33 0-55 [facility]um or plasma protein measurement (mass/volume)2019-05-06 18:00:00* Test Item Value Reference Range Interpretation Comments Total Protein (test code = 2885-2) 7.3 6.5-8.1 [facility] or plasma albumin measurement (mass/volume)2019-05-06 18:00:00* Test Item Value Reference Range Interpretation Comments Albumin (test code = 1751-7) 3.6 3.5-5.0 [facility] CenterPlasma globulin measurement (mass/volume) 2019-05-06 18:00:00* Test Item Value Reference Range Interpretation Comments Globulin (test code = 45781-8) 3.7 2.3-3.5 [facility] or plasma albumin/globulin mass hduiu9830-12-78 18:00:00* Test Item Value Reference Range Interpretation Comments Albumin/Globulin Ratio (test code = 1759-0) 1.0 0.8-2.0 [facility] or plasma alkaline phosphatase measurement (enzymatic activity/volume)2019-05-06 18:00:00* Test Item Value Reference Range Interpretation Comments Alkaline Phosphatase (test code = 6768-6) 69 40-150 [facility] CenterBNP Gej-bUee4762-59-15 18:00:00* Test Item Value Reference Range Interpretation Comments B-Type Natriuretic Peptide (test code = 71982-0) 16.9 0-100 [facility] or plasma creatine kinase measurement (enzymatic activity/volume)2019-05-06 18:00:00* Test Item Value Reference Range Interpretation Comments Creatine Kinase (test code = 2157-6) 187 29-168 [facility]sterum or plasma creatine kinase MB measurement (mass/volume)2019-05-06 18:00:00* Test Item Value Reference Range Interpretation Comments Creatine Kinase MB (test code = 28301-0) 2.60 0-5.0 [facility] CenterTroponin I measurement by highly sensitive enzyme gyfdyyapvda7399-95-71 18:00:00* Test Item Value Reference Range Interpretation Comments Troponin I (test code = 35046-9) < 0.001 0-0.300 [facility] CenterCT, CTA CORONARY WITH CALCIUM EVAL AND FFR LFAHGBMW4748-67-82 10:25:00Reason for exam:->CHEST PAINAddendum BeginsREPORT STATUS:A Addendum: [...] possibly a breast ultrasound. Signed: Francisco Colón MDReport Verified Date/Time: 02/03/2019 10:25:08 Reading Location: [facility] Diagnostic Imaging Reading Room - [facility] [phone] EndsFINAL REPORT CT coronary angiography, 02 February 2019 INDICATION: This is a 68 -year old male with chest pain presents for assessment. TECHNIQUE: Spiral acquisition before and during intravenous contrast administration using a Lottie multidetec tor CT scanner. Multi-planar 3-D volume-rendering reconstruction was performed u sing an independent workstation interactively by the interpreting physician as vania quarles as the 3-D specialist for optimal visualisation [...] performed. Coronary calcification was analyzed using the Kleek[employer] system software. These are the results of [...] the result would be sent to PAC S/Mogotest when available. However, the data will likely [...] fin dings will be reviewed by the Asset Coordinator Radiologist and addendum will be added as needed. Signed: Suhas Richards Verified Date/Time: 02/02/2019 14 :31:21 heart coronary with calcium evaluation with ICM3633-96-23 14:31:00 Interface, External Ris In - 02/03/2019 [...] Colón Verified Date/Time: 2018 10:25:08 Reading Location: [facility] Diagnostic Imaging Reading Room - [facility] 1 .310.12Addendum EndsFINAL REPORT CT coronary angiography, 02 February [...] performed. Coronary calcification was analyzed using the Vitr ea system software. These are the results of [...] postprocessing, the result would be sent to [employer] S/Mogotest when available. However, the data will likely [...] fin dings will be reviewed by the Asset Coordinator Radiologist and addendum will be added as needed. Signed: Suhas Richards [facility]PITALeport Verified Date/Time: 02/02/2019 14 :31:21 [facility] uynsk5281-37-98 06:56:00* Test Item Value Reference Range Interpretation Comments Sodium (test code = 2951-2) 135 meq/L 136-145 L Potassium (test code = 2823-3) 4.2 meq/L 3.5-5.1 Chloride (test code = 2075-0) 103 meq/L 98-107 CO2 (test code = 2027-9) 24 meq/L 22-29 BUN (test code = 3094-0) 28 mg/dL 7-21 H Creatinine (test code = 2160-0) 1.42 mg/dL 0.57-1.25 H Glucose (test code = 2345-7) 268 mg/dL 70-105 H Calcium (test code = 82043-4) 9.2 mg/dL 8.4-10.2 EGFR (test code = 44662-0) 45 mL/min/1.73 sq m ESTIMATED GFR IS NOT ACCURATE CREATININE CLEARANCE IN PREDICTING GLOMERULAR FILTRATION RATE. ESTIMATED GFR IS NOT APPLICABLE FOR DIALYSIS PATIENTS. Lab Interpretation (test code = 71229-3) Abnormal [facility] METABOLIC [id number] 06:56:00* Test Item Value Reference Range Interpretation [...] NOT APPLICABLE FOR DIALYSIS PATIENTS. ECG 12 dofg3392-62-38 06:31:23Interface, External Ris In - 02/02/2019 6:31 AM CDTVentricular Rate 70 BPMAtrial Rate 70 BPMP-R Interval 160 msQRS Duration 62 msQ-T Interval 378 msQTC Calculation(Bazett) 408 msP [place] 49 degreesR [place] 18 degreesT [place] 155 degreesNormal sinus rhythmT wave inversin lateral leads consider postischemic changesAbnormal ECGWhen compared with ECG of 30-JAN-2019 09:42,No significant change was foundConfirmed by MD PAOLA, JAGRUTI ([id number]) on 02/02/2019 6:31:22 [facility] jepbx3943-99-83 21:36:00* Test Item Value Reference Range Interpretation Comments POC-Glucose Meter (test code = 1538) 96 mg/dL 70-110 TESTED AT [place] [id number] [facility] [address] Lab Interpretation (test code = 20343-4) Normal [facility] CenterPOMT-GLUCOSE ZRNLS4530-00-47 21:36:00* Test Item Value Reference Range Interpretation Comments POC-GLUCOSE METER (BEAKER) (test code = 1538) 96 mg/dL 70-110 TESTED AT [place] [id number] [facility] [address] POCT-GLUCOSE [id number] 17:23:00* Test Item Value Reference Range Interpretation Comments POC-GLUCOSE METER (BEAKER) (test code = 1538) 135 mg/dL 70-110 H TESTED AT [facility] [address] [facility] [address] POCT-GLUCOSE [id number] 11:40:00* Test Item Value Reference Range Interpretation Comments POC-GLUCOSE METER (BEAKER) (test code = 1538) 142 mg/dL 70-110 H TESTED AT [facility] [address] [facility] [address] POCT-GLUCOSE [id number] 08:02:00* Test Item Value Reference Range Interpretation Comments POC-GLUCOSE METER (BEAKER) (test code = 1538) 126 mg/dL 70-110 H TESTED AT [place] [id number] [facility] [address] BASIC METABOLIC [id number] 06:07:00* Test Item Value Reference Range Interpretation [...] IS NOT APPLICABLE FOR DIALYSIS PATIENTS. POCT-GLUCOSE [id number] 21:23:00* Test Item Value Reference Range Interpretation Comments POC-GLUCOSE METER (BEAKER) (test code = 1538) 141 mg/dL 70-110 H TESTED AT [address] [address] POCT-GLUCOSE [id number] 17:54:00* Test Item Value Reference Range Interpretation Comments POC-GLUCOSE METER (BEAKER) (test code = 1538) 83 mg/dL 70-110 TESTED AT [address] [address] POCT-GLUCOSE [id number] 12:44:00* Test Item Value Reference Range Interpretation Comments POC-GLUCOSE METER (BEAKER) (test code = 1538) 145 mg/dL 70-110 H TESTED AT [address] [address] POCT-GLUCOSE [id number] 08:35:00* Test Item Value Reference Range Interpretation Comments POC-GLUCOSE METER (BEAKER) (test code = 1538) 133 mg/dL 70-110 H TESTED AT [place] [id number] [facility] [address] Hemoglobin [id number] 07:17:00* Test Item Value Reference Range Interpretation Comments Hemoglobin A1C (test code = 4548-4) 9.4 % 4.3-6.1 H Lab Interpretation (test code = 14980-7) Abnormal [facility] CenterHEMOGLOBIN [id number] 07:17:00* Test Item Value Reference Range Interpretation Comments HEMOGLOBIN A1C (BEAKER) (test code = 368) 9.4 % 4.3-6.1 H Lipid vuuge6372-76-70 06:27:00* Test Item Value Reference Range Interpretation Comments Triglycerides (test code = 2571-8) 250 mg/dL Cholesterol (test code = 2093-3) 142 mg/dL HDL (test code = 2085-9) 29 mg/dL LDL Calculated (test code = 69293-3) 63 mg/dL NIRAJ (test code = NIRAJ) Triglyceride Reference Range : Low Risk <150 Borderline 150-199 High Risk 200-499 Very High Risk >=500 Cholesterol Reference Range: Low Risk <200 Borderline 200-239 High Risk >240 HDL Cholesterol Reference Range: Low Risk >=60 High Risk <40 LDL Cholesterol Reference Range: Optimal <100 Near Optimal 100-129 Borderline 130-159 High 160-189 Very High >=190 [facility] HospitalLIPID [id number] 06:27:00* Test Item Value Reference Range Interpretation [...] High 160-189 Very High >=190 BASIC METABOLIC [id number] 06:27:00* Test Item Value Reference Range Interpretation [...] APPLICABLE FOR DIALYSIS PATIENTS. TSH/Free T4 If Lxutxqjcl1074-43-76 05:53:00* Test Item Value Reference Range Interpretation Comments TSH (test code = 67362-0) 0.84 0.35- 4.94 uIU/mL Lab Interpretation (test code = 43330-1) Normal [facility] CenterTSH/FREE T4 IF [id number] 05:53:00* Test Item Value Reference Range Interpretation Comments THYROID STIMULATING HORMONE (BEAKER) (test code = 772) 0.84 uIU/mL 0.35-4.94 CBC with platelet count + automated vmpd0158-78-49 05:13:00* Test Item Value Reference Range Interpretation [...] 450 K/CU MM MPV (test code = 93316-7) 10.8 fL 9.4-12.3 nRBC (test code = [...] % 0-1 Lab Interpretation (test code = 37094-5) Abnormal [facility] W/PLT COUNT & AUTO FHZNYTWWZJZW6612-62-74 05:13:00* Test Item Value Reference Range Interpretation [...] code = 2801) 0 % 0-1 POCT-GLUCOSE [id number] 21:36:00* Test Item Value Reference Range Interpretation Comments POC-GLUCOSE METER (BEAKER) (test code = 1538) 114 mg/dL 70-110 H TESTED AT [facility] [address] [facility] [address] Troponin [id number] 21:25:00* Test Item Value Reference Range Interpretation Comments Troponin I (test code = 91787-6) <0.01 0-0.03 NIRAJ (test code = NIRAJ) [...] persistent tachyarrhythmia. Lab Interpretation (test code = 53478-0) Normal [facility] HospitalTROPONIN [id number] 21:25:00* Test Item Value Reference Range Interpretation [...] acute neurological disease, and per sistent tachyarrhythmia.POCT-GLUCOSE [id number] 18:42:00* Test Item Value Reference Range Interpretation Comments POC-GLUCOSE METER (BEAKER) (test code = 1538) 92 mg/dL 70-110 TESTED AT [facility] [address] [facility] [address] TROPONIN [id number] 17:00:00* Test Item Value Reference Range Interpretation [...] acute neurological disease, and per sistent tachyarrhythmia.POCT-GLUCOSE [id number] 14:34:00* Test Item Value Reference Range Interpretation Comments POC-GLUCOSE METER (BHUPINDERAKER) (test code = 1538) 116 mg/dL 70-110 H TESTED AT [facility] [address] [facility] [address] B-type Natriuretic Factor (BNP)2019-01-30 11:42:00* Test Item Value Reference Range Interpretation Comments BNP (test code = 79583-9) <10 0-100 Lab Interpretation (test code = 63069-1) Normal [facility] HospitalB-TYPE NATRIURETIC FACTOR (BNP)2019-01-30 11:42:00 * Test Item Value Reference Range Interpretation Comments B-TYPE NATRIURETIC PEPTIDE (BEAKER) (test code = 700) < pg/mL 0-100 TROPONIN [id number] 11:04:00* Test Item Value Reference Range Interpretation [...] acidosis, acute neurological disease, and per sistent tachyarrhythmia.Spuozidta2689-11-13 10:56:00* Test Item Value Reference Range Interpretation Comments Magnesium (test code = 80350-1) 1.7 mg/dL 1.6-2.6 Lab Interpretation (test code = 24328-8) Normal [facility] CenterMAGNESIUM2019-10-11 10:56:00* Test Item Value Reference Range Interpretation Comments MAGNESIUM (BEAKER) (test code = 627) 1.7 mg/dL 1.6-2.6 BASIC METABOLIC [id number] 10:56:00* Test Item Value Reference Range Interpretation [...] GFR IS NOT APPLICABLE FOR DIALYSIS PATIENTS. PT/uNFJ3710-57-79 10:48:00* Test Item Value Reference Range Interpretation Comments Protime (test code = 5902-2) 13.5 11.9- 14.2 seconds INR (test code = 6301-6) 1.1 <=5.9 PTT (test code = 84517-8) 28.7 22.5- 36.0 seconds NIRAJ (test code = NIRAJ) Effective 09/17/2018: PT Refe rence Range ChangeNew: 11.9- 14.2 Previous: 11.7-14.7 RECOMMENDED COUMADIN/WARFARIN INR THERAPY RANGESSTANDARD DOSE: 2.0-3.0 Includes: PROPHYLAXIS for venous thrombosis, sys temic embolization; TREATMENT for venous thrombosis and/or pulmonary embolus.HIGH RISK: Target INR is 2.5-3.5 for patients wiht mechanical heart valves. Lab Interpretation (test code = 97652-2) Normal [facility] CenterPT/QLUW6258-97-35 10:48:00* Test Item Value Reference Range Interpretation [...] mechanical heart valves.CBC W/PLT COUNT & AUTO VFKNZJYFCDKR5414-01-97 10:39:00* Test Item Value Reference Range Interpretation [...] 2801) 0 % 0-1 RAD, CHEST, 2 [id number] 10:08:00Reason for exam:->CHEST PAINFINAL REPORT INDICATION: CHEST PAIN COMPARISON: December 28, 2015 TECHNIQUE: Frontal and lateral views of the chest. FINDINGS: Lungs and pleura: Clear lungs. No effusion.Heart and mediastinum: Normal heart size. Unremarkable mediastinal contours.Osseous structures: No acute abnormality.Additional findings: None. IMPRESSION: No acute intrathoracic abnormality. Signed: Narinder tuttle JR, Robert MDReport Verified Date/Time: 01/30/2019 10:08:24 Reading Loc ation: [facility] Radiology Reading Room chest 2 dleop9212-16-32 10:08:00 Interface, External Ris In - 01/30/2019 10:10 AM CDTFINAL REPORT PATIENT ID: [id number] INDICATION: CHEST PAIN COMPARISON: December 28, 2015 TECHNIQUE: Frontal and lateral views of the chest. FINDINGS: Lungs and pleura: Clear lungs. No effu donnie.Heart and mediastinum: Normal heart size. Unremarkable mediastinal contours .Osseous structures: No acute abnormality.Additional findings: None. IMPRESSION : No acute intrathoracic abnormality. Signed: JR Mello Robert MDReport Verified Date/Time: 01/30/2019 10:08:24 Reading Location: [facility] Reading Room Electronically signed by: DARSHAN MELLO on 9 10:08 AM [facility]CT ABDOMEN/PELVIS [id number] 13:34:00 [place] [address] Patient Name: GHANSHYAM SCHROEDER MR #: [id number] : 1950 Age/Sex: 67/F Req #: [id number] Adm Physician: Ordered by: YANET COATS CUTLERY GRINDER Report #: [id number] Location: ER Room/Bed: Procedure: [id number] C T/CT ABDOMEN/PELVIS WO Exam Date: 07/03/18 [...] By: BRYANT on 07/03/18 1409 COPY TO: YANET COATS NP B-Type Natriuretic Bjrissg6613-89-89 12:07:00* Test Item Value Reference Range Interpretation Comments B-Type Natriuretic Peptide (test code = 58658-0) < 10.0 0-100 [facility] CenterProthrombin Krxx0742-22-03 11:49:00* Test Item Value Reference Range Interpretation Comments Prothrombin Time (test code = 5902-2) 12.3 11.9-14.5 [facility] CenterProthromb Time International Ratio 2018-07-03 11:49:00* Test Item Value Reference Range Interpretation Comments Prothromb Time International Ratio (test code = 6301-6) 0.87 Oral Anticoagulant Therapy INR Values:1. Low Intensity Therapy 1.5 - 2.02 . Moderate Intensity Therapy 2.0 - 3.03. High Intensity Therapy(1) 2.5 - 3. 54. High Intensity Therapy(2) 3.0 - 4.05. Panic Value INR > 5.0 [facility] CenterActivated Partial Thromboplast Time 2018-07-03 11:49:00* Test Item Value Reference Range Interpretation Comments Activated Partial Thromboplast Time (test code = 98334-5) 30.1 23.8-35.5 [facility] CenterUrine Egilq3645-02-72 11:46:00* Test Item Value Reference Range Interpretation Comments Urine Blood (test code = 20861-1) NEGATIVE NEGATIVE [facility] CenterUrine [id number] 11:46:00* Test Item Value Reference Range Interpretation Comments Urine WBC (test code = 5821-4) 6-10 0-5 H [facility] CenterUrine [id number] 11:46:00* Test Item Value Reference Range Interpretation Comments Urine RBC (test code = 76272-9) NONE 0-5 [facility] CenterUrine Jthfyznv5185-22-72 11:46:00* Test Item Value Reference Range Interpretation Comments Urine Bacteria (test code = 20762-9) MANY NONE H [facility] CenterUrine Epithelial Ggimt8634-26-22 11:46:00 * Test Item Value Reference Range Interpretation Comments Urine Epithelial Cells (test code = 15583-9) MANY NONE [facility] CenterCreatine Kinase BG2619-06-16 11:45:00* Test Item Value Reference Range Interpretation Comments Creatine Kinase MB (test code = 18145-9) 1.70 0-5.0 [facility] CenterTroponin [id number] 11:45:00* Test Item Value Reference Range Interpretation Comments Troponin I (test code = RIH0331) 0.003 0-0.300 [facility] CenterCHEST 2 PRQKK9917-88-26 11:42:00 [facility] [address] [place] [address] Patient Name: GHANSHYAM SCHROEDER MR #: [id number] : 1950 Age/Sex: 67/F Req #: [id number] Adm Physician: Ordered by: YANET COATS CUTLERY GRINDER Report #: [id number] Location: ER Room/Bed: Procedure: [id number] D X/CHEST 2 VIEWS Exam Date: 07/03/18 [...] By: BRYANT on 07/03/18 1144 COPY TO: YANET COATS NP Sodium Mrnhz3182-44-59 11:38:00* Test Item Value Reference Range Interpretation Comments Sodium Level (test code = 2951-2) 137 136-145 [facility] CenterPotassium Ipdhj3883-69-77 11:38:00* Test Item Value Reference Range Interpretation Comments Potassium Level (test code = 2823-3) 3.5 3.5-5.1 [facility] CenterChloride Ioyjr1921-48-05 11:38:00* Test Item Value Reference Range Interpretation Comments Chloride Level (test code = 2075-0) 99 98-107 [facility] CenterCarbon Dioxide Bllzd0075-44-43 11:38:00* Test Item Value Reference Range Interpretation Comments Carbon Dioxide Level (test code = 2028-9) 26 22-29 [facility] CenterAnion Vei0149-82-73 11:38:00* Test Item Value Reference Range Interpretation Comments Anion Gap (test code = 61519-2) 15.5 8-16 [facility] CenterBlood Urea Qtozphqe0204-35-75 11:38:00* Test Item Value Reference Range Interpretation Comments Blood Urea Nitrogen (test code = 3094-0) 19 7-26 [facility] CenterCreatinine2019-03-14 11:38:00* Test Item Value Reference Range Interpretation Comments Creatinine (test code = 2160-0) 1.19 0.57-1.11 H [facility] CenterBUN/Creatinine Drcxr9115-13-65 11:38:00* Test Item Value Reference Range Interpretation Comments BUN/Creatinine Ratio (test code = 3097-3) 16 6-25 [facility] CenterEstimat Glomerular Filtration Rate 2018-07-03 11:38:00* Test Item Value Reference Range Interpretation Comments Estimat Glomerular Filtration Rate (test code = 807034134) 55 >60 L Ranges were taken from the National Kidney Disease Education Program and the [facility] [employer] Foundation literature.Reference ranges:60 or greater: Uqhfcj79-35 ( for 3 consecutive months): Chronic kidney disease 15 or less: Kidney failureHendrick Medical CenterGlucose Whqjn2995-38-50 11:38:00* Test Item Value Reference Range Interpretation Comments Glucose Level (test code = DOW6478) 188 74-118 H [facility] CenterCalcium Lolli7458-75-88 11:38:00* Test Item Value Reference Range Interpretation Comments Calcium Level (test code = 70267-7) 9.1 8.4-10.2 [facility] CenterMagnesium Vocxr7883-27-89 11:38:00* Test Item Value Reference Range Interpretation Comments Magnesium Level (test code = 10098-5) 2.4 1.3-2.1 [facility] CenterTotal Vtrxjfehr8665-41-99 11:38:00* Test Item Value Reference Range Interpretation Comments Total Bilirubin (test code = 1975-2) 0.5 0.2-1.2 [facility] CenterAspartate Amino Transf (AST/SGOT) 2018-07-03 11:38:00* Test Item Value Reference Range Interpretation Comments Aspartate Amino Transf (AST/SGOT) (test code = Aspartate Amino Transf (AST/SGOT)) 17 5-34 [facility] CenterAlanine Aminotransferase (ALT/SGPT) 2018-07-03 11:38:00* Test Item Value Reference Range Interpretation Comments Alanine Aminotransferase (ALT/SGPT) (test code = 1742-6) 16 0-55 [facility] CenterTotal Eucidvy3620-40-89 11:38:00* Test Item Value Reference Range Interpretation Comments Total Protein (test code = 2885-2) 7.5 6.5-8.1 [facility] CenterAlbumin2019-03-14 11:38:00* Test Item Value Reference Range Interpretation Comments Albumin (test code = 1751-7) 3.5 3.5-5.0 [facility] CenterGlobulin2019-03-14 11:38:00* Test Item Value Reference Range Interpretation Comments Globulin (test code = 01463-0) 4.0 2.3-3.5 [facility] CenterAlbumin/Globulin Fgtsf4443-01-89 11:38:00 * Test Item Value Reference Range Interpretation Comments Albumin/Globulin Ratio (test code = 1759-0) 0.9 0.8-2.0 [facility] CenterAlkaline Cdlifgwyyjf3942-15-46 11:38:00* Test Item Value Reference Range Interpretation Comments Alkaline Phosphatase (test code = 6768-6) 95 40-150 [facility] CenterCreatine Nzvrlj0560-65-25 11:38:00* Test Item Value Reference Range Interpretation Comments Creatine Kinase (test code = 2157-6) 187 29-168 [facility] CenterAmylase Tzrpe0809-08-12 11:38:00* Test Item Value Reference Range Interpretation Comments Amylase Level (test code = 1798-8) 82 25-125 [facility] CenterLipase2019-03-14 11:38:00* Test Item Value Reference Range Interpretation Comments Lipase (test code = 3040-3) 38 8-78 [facility] CenterUrine Otufp3254-90-83 11:34:00* Test Item Value Reference Range Interpretation Comments Urine Color (test code = 5778-6) YELLOW YELLOW [facility] CenterUrine Mrczzth1120-11-95 11:34:00* Test Item Value Reference Range Interpretation Comments Urine Clarity (test code = 15252-1) CLEAR CLEAR [facility] CenterUrine Specific Eickmvl1236-95-40 11:34:00 * Test Item Value Reference Range Interpretation Comments Urine Specific [place] (test code = 5811-5) 1.020 1.010-1.02 5 [facility] CenterUrine qH8609-42-04 11:34:00* Test Item Value Reference Range Interpretation Comments Urine pH (test code = 79073-8) 6 5-7 [facility] CenterUrine Leukocyte Rllsoiyg9828-17-54 11:34:00* Test Item Value Reference Range Interpretation Comments Urine Leukocyte Esterase (test code = 5799-2) NEGATIVE NEGATIVE [facility] CenterUrine Kxuizlt9204-62-71 11:34:00* Test Item Value Reference Range Interpretation Comments Urine Nitrite (test code = 28221-6) NEGATIVE NEGATIVE [facility] CenterUrine Geejdrv2951-91-68 11:34:00* Test Item Value Reference Range Interpretation Comments Urine Protein (test code = 5804-0) NEGATIVE NEGATIVE [facility] CenterUrine Glucose (UA)2018-07-03 11:34:00* Test Item Value Reference Range Interpretation Comments Urine Glucose (UA) (test code = 2349-9) NEGATIVE NEGATIVE [facility] CenterUrine Lbjwadw4270-67-64 11:34:00* Test Item Value Reference Range Interpretation Comments Urine Ketones (test code = 17138-6) NEGATIVE NEGATIVE [facility] CenterUrine Xcmjslzvsbnu9117-05-90 11:34:00* Test Item Value Reference Range Interpretation Comments Urine Urobilinogen (test code = 58908-0) 0.2 0.2-1 [facility] CenterUrine Daghajfvh8177-25-18 11:34:00* Test Item Value Reference Range Interpretation Comments Urine Bilirubin (test code = 1978-6) NEGATIVE NEGATIVE [facility] CenterWhite Blood Zyrkw7012-99-56 11:26:00* Test Item Value Reference Range Interpretation Comments White Blood Count (test code = 6690-2) 8.90 4.8-10.8 [facility] CenterRed Blood Srjbl7470-61-80 11:26:00* Test Item Value Reference Range Interpretation Comments Red Blood Count (test code = 789-8) 5.26 3.6-5.1 [facility] CenterHemoglobin2019-03-14 11:26:00* Test Item Value Reference Range Interpretation Comments Hemoglobin (test code = 04033-5) 12.8 12.0-16.0 [facility] CenterHematocrit2019-03-14 11:26:00* Test Item Value Reference Range Interpretation Comments Hematocrit (test code = 4544-3) 40.9 34.2-44.1 [facility] CenterMean Corpuscular Hxhhfg7218-73-07 11:26:00* Test Item Value Reference Range Interpretation Comments Mean Corpuscular Volume (test code = 787-2) 77.8 81-99 L [facility] CenterMean Corpuscular Ysioeygkze4015-74-96 11:26:00* Test Item Value Reference Range Interpretation Comments Mean Corpuscular Hemoglobin (test code = 785-6) 24.3 28-32 L [facility] CenterMean Corpuscular Hemoglobin Concent 2018-07-03 11:26:00* Test Item Value Reference Range Interpretation Comments Mean Corpuscular Hemoglobin Concent (test code = 786-4) 31.3 31-35 [facility] CenterRed Cell Distribution Kwssw7417-64-49 11:26:00* Test Item Value Reference Range Interpretation Comments Red Cell Distribution Width (test code = 96749-0) 15.2 11.7 -14.4 H [facility] CenterPlatelet Gazxw2519-66-96 11:26:00* Test Item Value Reference Range Interpretation Comments Platelet Count (test code = 777-3) 250 140-360 [facility] CenterNeutrophils (%) (Auto)2018-07-03 11:26:00 * Test Item Value Reference Range Interpretation Comments Neutrophils (%) (Auto) (test code = 82192-3) 64.3 38.7-80.0 [facility] CenterLymphocytes (%) (Auto)2018-07-03 11:26:00 * Test Item Value Reference Range Interpretation Comments Lymphocytes (%) (Auto) (test code = 736-9) 25.1 18.0-39.1 [facility] CenterMonocytes (%) (Auto)2018-07-03 11:26:00* Test Item Value Reference Range Interpretation Comments Monocytes (%) (Auto) (test code = 5905-5) 7.1 4.4-11.3 [facility] CenterEosinophils (%) (Auto)2018-07-03 11:26:00 * Test Item Value Reference Range Interpretation Comments Eosinophils (%) (Auto) (test code = 713-8) 2.8 0.0-6.0 [facility] CenterBasophils (%) (Auto)2018-07-03 11:26:00* Test Item Value Reference Range Interpretation Comments Basophils (%) (Auto) (test code = 706-2) 0.3 0.0-1.0 [facility] CenterIM GRANULOCYTES %2018-07-03 11:26:00* Test Item Value Reference Range Interpretation Comments IM GRANULOCYTES % (test code = IM GRANULOCYTES %) 0.4 0.0- 1.0 [facility] CenterNeutrophils # (Auto)2018-07-03 11:26:00* Test Item Value Reference Range Interpretation Comments Neutrophils # (Auto) (test code = 751-8) 5.7 2.1-6.9 [facility] CenterLymphocytes # (Auto)2018-07-03 11:26:00* Test Item Value Reference Range Interpretation Comments Lymphocytes # (Auto) (test code = 36532-9) 2.2 1.0-3.2 [facility] CenterMonocytes # (Auto)2018-07-03 11:26:00* Test Item Value Reference Range Interpretation Comments Monocytes # (Auto) (test code = 742-7) 0.6 0.2-0.8 [facility] CenterEosinophils # (Auto)2018-07-03 11:26:00* Test Item Value Reference Range Interpretation Comments Eosinophils # (Auto) (test code = 711-2) 0.3 0.0-0.4 [facility] CenterBasophils # (Auto)2018-07-03 11:26:00* Test Item Value Reference Range Interpretation Comments Basophils # (Auto) (test code = 704-7) 0.0 0.0-0.1 [facility] CenterAbsolute Immature Granulocyte (auto 2018-07-03 11:26:00* Test Item Value Reference Range Interpretation Comments Absolute Immature Granulocyte (auto (corey t code = Absolute Immature Granulocyte (auto) 0.04 0-0.1 [facility] CenterPOCT-GLUCOSE QKDGF4120-19-35 11:51:00* Test Item Value Reference Range Interpretation Comments POC-GLUCOSE METER (BEAKER) (test code = 1538) 124 mg/dL 70-110 H TESTED AT [facility] [address] [facility] [address] Creatine Kinase IE8135-05-16 15:21:00* Test Item Value Reference Range Interpretation Comments Creatine Kinase MB (test code = 53446-6) 1.40 0-5.0 [facility] CenterTroponin M8976-06-70 15:21:00* Test Item Value Reference Range Interpretation Comments Troponin I (test code = XJW1559) 0.005 0-0.300 [facility] Psykp4209-65-86 15:18:00* Test Item Value Reference Range Interpretation Comments Sodium Level (test code = 2951-2) 141 136-145 [facility] CenterPotassium Akypo6403-53-78 15:18:00* Test Item Value Reference Range Interpretation Comments Potassium Level (test code = 2823-3) 4.1 3.5-5.1 [facility] CenterChloride Eaoib4447-54-96 15:18:00* Test Item Value Reference Range Interpretation Comments Chloride Level (test code = 2075-0) 102 98-107 [facility] CenterCarbon Dioxide Mlogo9957-08-26 15:18:00* Test Item Value Reference Range Interpretation Comments Carbon Dioxide Level (test code = 2028-9) 27 22-29 [facility] CenterAnion Zen1839-43-33 15:18:00* Test Item Value Reference Range Interpretation Comments Anion Gap (test code = 80967-0) 16.1 8-16 H [facility] CenterBlood Urea Tdzyomrx3470-48-81 15:18:00* Test Item Value Reference Range Interpretation Comments Blood Urea Nitrogen (test code = 3094-0) 17 7-26 [facility] CenterCreatinine2018-03-06 15:18:00* Test Item Value Reference Range Interpretation Comments Creatinine (test code = 2160-0) 1.12 0.57-1.11 [facility] CenterBUN/Creatinine Enfrx6970-64-62 15:18:00* Test Item Value Reference Range Interpretation Comments BUN/Creatinine Ratio (test code = 3097-3) 15 6-25 [facility] CenterEstimat Glomerular Filtration Rate 2017-06-25 15:18:00* Test Item Value Reference Range Interpretation Comments Estimat Glomerular Filtration Rate (test code = 74724-5) 59 >60 L Ranges were taken from the National Kidney Disease Education Program and the [facility] access hospital Kidney Foundation literature.Reference ranges:60 or greater: Gwgbic94-01 ( for 3 consecutive months): Chronic kidney disease 15 or less: Kidney failureCHI El Campo Memorial HospitalGlucose Nmkms6681-70-43 15:18:00* Test Item Value Reference Range Interpretation Comments Glucose Level (test code = RPQ8151) 100 74-118 [facility] CenterCalcium Mkpnl4796-92-71 15:18:00* Test Item Value Reference Range Interpretation Comments Calcium Level (test code = 00204-3) 9.2 8.4-10.2 [facility] CenterTotal Sravszhfu2446-80-32 15:18:00* Test Item Value Reference Range Interpretation Comments Total Bilirubin (test code = 1975-2) 0.5 0.2-1.2 [facility] CenterAspartate Amino Transf (AST/SGOT) 2017-06-25 15:18:00* Test Item Value Reference Range Interpretation Comments Aspartate Amino Transf (AST/SGOT) (test code = Aspartate Amino Transf (AST/SGOT)) 23 5-34 [facility] CenterAlanine Aminotransferase (ALT/SGPT) 2017-06-25 15:18:00* Test Item Value Reference Range Interpretation Comments Alanine Aminotransferase (ALT/SGPT) (test code = 1742-6) 20 0-55 [facility] CenterTotal Kpgcvzm7419-01-43 15:18:00* Test Item Value Reference Range Interpretation Comments Total Protein (test code = 2885-2) 8.1 6.5-8.1 [facility] CenterAlbumin2018-03-06 15:18:00* Test Item Value Reference Range Interpretation Comments Albumin (test code = 1751-7) 3.8 3.5-5.0 [facility] CenterGlobulin2018-03-06 15:18:00* Test Item Value Reference Range Interpretation Comments Globulin (test code = 03578-9) 4.3 2.3-3.5 H [facility] CenterAlbumin/Globulin Dmelh7301-25-89 15:18:00 * Test Item Value Reference Range Interpretation Comments Albumin/Globulin Ratio (test code = 1759-0) 0.9 0.8-2.0 [facility] CenterAlkaline Bajqepynkmn1968-33-83 15:18:00* Test Item Value Reference Range Interpretation Comments Alkaline Phosphatase (test code = 6768-6) 85 40-150 [facility] CenterCreatine Ihcpwf4511-61-43 15:18:00* Test Item Value Reference Range Interpretation Comments Creatine Kinase (test code = 2157-6) 163 29-168 [facility] CenterProthrombin Dcvq0722-02-35 15:06:00* Test Item Value Reference Range Interpretation Comments Prothrombin Time (test code = 5902-2) 12.2 11.9-14.5 [facility] CenterProthromb Time International Ratio 2017-06-25 15:06:00* Test Item Value Reference Range Interpretation Comments Prothromb Time International Ratio (test code = 6301-6) 0.98 Oral Anticoagulant Therapy INR Values:1. Low Intensity Therapy 1.5 - 2.02 . Moderate Intensity Therapy 2.0 - 3.03. High Intensity Therapy(1) 2.5 - 3. 54. High Intensity Therapy(2) 3.0 - 4.05. Panic Value INR > 5.0 [facility] CenterActivated Partial Thromboplast Time 2017-06-25 15:06:00* Test Item Value Reference Range Interpretation Comments Activated Partial Thromboplast Time (test code = 35211-8) 25.5 23.8-35.5 [facility] CenterWhite Blood Rpqyc3165-67-17 14:47:00* Test Item Value Reference Range Interpretation Comments White Blood Count (test code = 6690-2) 9.16 4.8-10.8 [facility] CenterRed Blood Onbfb6205-35-41 14:47:00* Test Item Value Reference Range Interpretation Comments Red Blood Count (test code = 789-8) 5.23 3.6-5.1 H [facility] CenterHemoglobin2018-03-06 14:47:00* Test Item Value Reference Range Interpretation Comments Hemoglobin (test code = 93080-3) 12.9 12.0-16.0 [facility] CenterHematocrit2018-03-06 14:47:00* Test Item Value Reference Range Interpretation Comments Hematocrit (test code = 4544-3) 40.6 34.2-44.1 [facility] CenterMean Corpuscular Kqomuk9606-25-66 14:47:00* Test Item Value Reference Range Interpretation Comments Mean Corpuscular Volume (test code = 787-2) 77.6 81-99 L [facility] CenterMean Corpuscular Nnbljmomlh3518-53-09 14:47:00* Test Item Value Reference Range Interpretation Comments Mean Corpuscular Hemoglobin (test code = 785-6) 24.7 28-32 L [facility] CenterMean Corpuscular Hemoglobin Concent 2017-06-25 14:47:00* Test Item Value Reference Range Interpretation Comments Mean Corpuscular Hemoglobin Concent (test code = 786-4) 31.8 31-35 [facility] CenterRed Cell Distribution Ryixf7633-35-88 14:47:00* Test Item Value Reference Range Interpretation Comments Red Cell Distribution Width (test code = 74230-7) 15.7 11.7 -14.4 H [facility] CenterPlatelet Ypenc1996-95-37 14:47:00* Test Item Value Reference Range Interpretation Comments Platelet Count (test code = 777-3) 233 140-360 [facility] CenterNeutrophils (%) (Auto)2017-06-25 14:47:00 * Test Item Value Reference Range Interpretation Comments Neutrophils (%) (Auto) (test code = 90492-6) 57.4 38.7-80.0 [facility] CenterLymphocytes (%) (Auto)2017-06-25 14:47:00 * Test Item Value Reference Range Interpretation Comments Lymphocytes (%) (Auto) (test code = 736-9) 30.8 18.0-39.1 [facility] CenterMonocytes (%) (Auto)2017-06-25 14:47:00* Test Item Value Reference Range Interpretation Comments Monocytes (%) (Auto) (test code = 5905-5) 8.5 4.4-11.3 [facility] CenterEosinophils (%) (Auto)2017-06-25 14:47:00 * Test Item Value Reference Range Interpretation Comments Eosinophils (%) (Auto) (test code = 713-8) 2.7 0.0-6.0 [facility] CenterBasophils (%) (Auto)2017-06-25 14:47:00* Test Item Value Reference Range Interpretation Comments Basophils (%) (Auto) (test code = 706-2) 0.3 0.0-1.0 [facility] CenterIM GRANULOCYTES %2017-06-25 14:47:00* Test Item Value Reference Range Interpretation Comments IM GRANULOCYTES % (test code = IM GRANULOCYTES %) 0.3 0.0- 1.0 [facility] CenterNeutrophils # (Auto)2017-06-25 14:47:00* Test Item Value Reference Range Interpretation Comments Neutrophils # (Auto) (test code = 751-8) 5.3 2.1-6.9 [facility] CenterLymphocytes # (Auto)2017-06-25 14:47:00* Test Item Value Reference Range Interpretation Comments Lymphocytes # (Auto) (test code = 08552-5) 2.8 1.0-3.2 [facility] CenterMonocytes # (Auto)2017-06-25 14:47:00* Test Item Value Reference Range Interpretation Comments Monocytes # (Auto) (test code = 742-7) 0.8 0.2-0.8 [facility] CenterEosinophils # (Auto)2017-06-25 14:47:00* Test Item Value Reference Range Interpretation Comments Eosinophils # (Auto) (test code = 711-2) 0.3 0.0-0.4 [facility] CenterBasophils # (Auto)2017-06-25 14:47:00* Test Item Value Reference Range Interpretation Comments Basophils # (Auto) (test code = 704-7) 0.0 0.0-0.1 [facility] CenterAbsolute Immature Granulocyte (auto 2017-06-25 14:47:00* Test Item Value Reference Range Interpretation Comments Absolute Immature Granulocyte (auto (corey t code = Absolute Immature Granulocyte (auto) 0.03 0-0.1 [facility] CenterUrine JYP8409-20-95 14:22:00* Test Item Value Reference Range Interpretation Comments Urine WBC (test code = 5821-4) NONE 0-5 [facility] CenterUrine TFC1235-01-02 14:22:00* Test Item Value Reference Range Interpretation Comments Urine RBC (test code = 38959-3) NONE 0-5 [facility] CenterUrine Vhdvfkce4547-50-87 14:22:00* Test Item Value Reference Range Interpretation Comments Urine Bacteria (test code = 51966-9) NONE NONE [facility] CenterUrine Epithelial Eysdc8640-35-14 14:22:00 * Test Item Value Reference Range Interpretation Comments Urine Epithelial Cells (test code = 86191-5) FEW NONE [facility] CenterUrine Unluu5104-43-81 14:06:00* Test Item Value Reference Range Interpretation Comments Urine Color (test code = 5778-6) YELLOW YELLOW [facility] CenterUrine Lykwjov2230-73-45 14:06:00* Test Item Value Reference Range Interpretation Comments Urine Clarity (test code = 82716-0) CLEAR CLEAR [facility] CenterUrine Specific Tqfydhj2119-70-82 14:06:00 * Test Item Value Reference Range Interpretation Comments Urine Specific [place] (test code = 5811-5) 1.010 1.010-1.02 5 [facility] CenterUrine uM2287-99-46 14:06:00* Test Item Value Reference Range Interpretation Comments Urine pH (test code = 26038-6) 6.5 5-7 [facility] CenterUrine Leukocyte Ohfsjclv7486-40-02 14:06:00* Test Item Value Reference Range Interpretation Comments Urine Leukocyte Esterase (test code = 5799-2) NEGATIVE NEGATIVE [facility] CenterUrine Peovicv7781-27-14 14:06:00* Test Item Value Reference Range Interpretation Comments Urine Nitrite (test code = 10947-0) NEGATIVE NEGATIVE [facility] CenterUrine Rllxlfg3149-79-87 14:06:00* Test Item Value Reference Range Interpretation Comments Urine Protein (test code = 5804-0) NEGATIVE NEGATIVE [facility] CenterUrine Glucose (UA)2017-06-25 14:06:00* Test Item Value Reference Range Interpretation Comments Urine Glucose (UA) (test code = 2349-9) NEGATIVE NEGATIVE [facility] CenterUrine Obzcydt5483-85-87 14:06:00* Test Item Value Reference Range Interpretation Comments Urine Ketones (test code = 55986-8) NEGATIVE NEGATIVE [facility] CenterUrine Rnjqwzryaadh0933-07-72 14:06:00* Test Item Value Reference Range Interpretation Comments Urine Urobilinogen (test code = 66539-8) 0.2 0.2-1 [facility] CenterUrine Rhxfqtptf9530-02-84 14:06:00* Test Item Value Reference Range Interpretation Comments Urine Bilirubin (test code = 1978-6) NEGATIVE NEGATIVE [facility] CenterUrine Jrllk1166-35-33 14:06:00* Test Item Value Reference Range Interpretation Comments Urine Blood (test code = 19542-8) NEGATIVE NEGATIVE [facility] CenterUrine Embib8432-08-24 20:15:00* Test Item Value Reference Range Interpretation Comments Urine Mucus (test code = 8247-9) FEW RARE H [facility] CenterAmylase Copqi7382-29-08 20:07:00* Test Item Value Reference Range Interpretation Comments Amylase Level (test code = 1798-8) 76 25-125 [facility] CenterLipase2017-10-03 20:07:00* Test Item Value Reference Range Interpretation Comments Lipase (test code = 3040-3) 21 8-78 [facility] [address] [address] Patient Name: GHANSHYAM SCHROEDER MR #: [id number] : 1950 Age/Sex: 66/F Req #: [id number] Adm Physician: Ordered by: YANET COATS NP Report #: [id number] Location: ER Room/Bed: Procedure: [id number] CT/CT BRAIN WO Exam Date: 06/25/17 Exam Time: 1450 REPORT STATUS: Signed [...] lly Signed By: NANCY WILLAMS MD on 06/25/171513 Transcribed By: BRYANT on 06/25 COPY TO: YANET COATS CUTLERY GRINDER CT ABDOMEN/PELVIS WO [place] [address] Patient Name: GHANSHYAM SCHROEDER MR #: [id number] : 0 1950 Age/Sex: 66/F Req #: [id number] Adm Physician: Ordered by: MELIA SCHULTZ MD Report #: [id number] Location: ER Ro om/Bed: Procedure: [id number] CT/CT ABDOMEN/PELVIS WO Exam Date: 01/22/17 Exam [...] 10:13 PM Dictated By: WILLIAM AGUILAR MD [facility] Signed By: WILLIAM AGUILAR MD on 01/22/17 2213 Transcribed By: BRYANT on 01/22/172212 COPY TO: MELIA SCHULTZ MD
[2019-12-31 11:18] LABS: BASOPHILS % 0.3 % (0.0-1.0); EOSINOPHILS # (AUTO) 0.4 (0.0-0.4); HEMATOCRIT 43.9 % (34.2-44.1); HEMOGLOBIN 13.3 g/dL (12.0-16.0); LYMPHOCYTES # (AUTO) 2.2 (1.0-3.2); LYMPHOCYTES % 24.9 % (18.0-39.1); MEAN CORPUSCULAR HEMOGLOBIN 23.9 pg (28-32); MEAN CORPUSCULAR HGB CONC 30.3 g/dL (31-35); MONOCYTES # (AUTO) 0.7 (0.2-0.8); MONOCYTES % 7.6 % (4.4-11.3); NEUTROPHILS # (AUTO) 5.4 (2.1-6.9); NEUTROPHILS % 62.7 % (38.7-80.0); PLATELET COUNT 241 x10e3/uL (140-360); RED BLOOD COUNT 5.56 x10e6/uL (3.6-5.1); RED CELL DISTRIBUTION WIDTH 15.7 % (11.7-14.4)
[2019-12-31 11:30] LABS: INR 0.82; PROTHROMBIN TIME 11.7 seconds (11.9-14.5)
[2019-12-31] MEDS ORDERED: DIPHENHYDRAMINE HCL INJ 50 MG/ML VIAL IV ONE (11:30)
[2019-12-31 11:38] LABS: ALANINE AMINOTRANSFERASE 15 IU/L (0-55); ALBUMIN 4.4 g/dL (3.5-5.0); ALBUMIN/GLOBULIN RATIO 1.3 (0.8-2.0); ALKALINE PHOSPHATASE 88 IU/L (40-150); ANION GAP 19.1 mmol/L (8-16); BLOOD UREA NITROGEN 17 mg/dL (7-26); BUN/CREATININE RATIO 16 (6-25); CALCIUM 9.1 mg/dL (8.4-10.2); CARBON DIOXIDE 20 mmol/L (22-29); CHLORIDE 108 mmol/L (98-107); CREATININE, SERUM 1.04 mg/dL (0.57-1.11); EST GLOMERULAR FILTRATION RATE > 60 ML/MIN (60-); GLUCOSE 135 mg/dL (74-118); POTASSIUM 4.1 mmol/L (3.5-5.1); SODIUM 143 mmol/L (136-145)
--- NOTE | 2019-12-31 13:11 | Diagnostic Imaging Report ---
EXAM: CT Chest WITH contrast- Pulmonary Embolism Protocol INDICATION: Shortness of breath COMPARISON: Chest radiograph 05/06/2019 TECHNIQUE: Chest was scanned utilizing a multidetector helical scanner from the lung apex through the level of the diaphragm after administration of IV contrast. Thin section reconstructions were obtained with special concentration on the pulmonary arteries. Coronal and sagittal reformations were obtained. Pulmonary embolism protocol was performed. IV CONTRAST: 100 cc of Isovue 370 RADIATION DOSE: Total DLP: 498 mGy*cm Dose modulation, iterative reconstruction, and/or weight based adjustment of the mA/kV was utilized to reduce the radiation dose to as low as reasonably achievable. COMPLICATIONS: None FINDINGS: LINES/ TUBES: None. PULMONARY ARTERIES: No filling defect is identified within the pulmonary arteries to the segmental level. The subsegmental pulmonary arteries are not well opacified. Main pulmonary artery measures 2.2 cm in diameter. LUNGS AND AIRWAYS: The central airways are patent. No focal consolidation or pulmonary edema. 3 mm right middle lobe pulmonary nodule (series 3 image 58). PLEURA: The pleural spaces are clear. HEART AND MEDIASTINUM: The thyroid gland is normal. No mediastinal, hilar or axillary lymphadenopathy. The heart is normal in size.. There is no pericardial effusion. UPPER ABDOMEN: Status post cholecystectomy. No acute findings in the upper abdomen. BONES: The visualized bony thorax is within normal limits. SOFT TISSUES: Unremarkable. IMPRESSION: No pulmonary embolism. No focal pneumonia or pulmonary edema. 3mm right middle lobe pulmonary nodule. If the patient is low risk, no follow-up imaging is necessary. If the patient is high risk, chest CT at 12 months is optional. Signed by: Manas Coles MD on 12/31/2019 1:08 PM
--- NOTE | 2019-12-31 13:21 | Diagnostic Imaging Report ---
EXAMINATION: CT of the face HISTORY: 69-year-old female with sinusitis, cough, sinus pressure, shortness of breath COMPARISON: Head CT 09/25/2019 TECHNIQUE: Multidetector helical axial images were acquired through the face with contrast. Intravenous contrast: 100 mL of Isovue-370 Dose modulation, iterative reconstruction, and/or weight based adjustment of the mA/kV was utilized to reduce the radiation dose to as low as reasonably achievable. FINDINGS: Bones: Unremarkable. Facial soft tissues: No mass or fluid collections. No abnormal enhancement.. Paranasal sinuses and drainage pathways: Minimal mucosal inflammatory thickening and small possible retention cyst in the right medial maxillary sinus wall. Otherwise the bilateral frontal, ethmoidal, sphenoid and maxillary sinuses are clear. The ostiomeatal units, fronto-nasal and spheno-ethmoidal recesses are clear. Orbits contents: Unremarkable. Nasal septum: Midline. Anatomic variations: No significant anatomic variations. Dentition: No acute abnormality of the visualized teeth. Incidental findings: -Partially visualized atherosclerotic calcification of the carotid bulbs with mild to moderate stenoses on the right side. -Partially visualized degenerative changes of cervical spine with moderate canal stenoses at C5-C6. IMPRESSION: 1. Minimal mucosal thickening of the right maxillary sinus, otherwise the paranasal sinuses-pathways are clear without evidence of sinusitis. 2. No mass or polyp in the nasal cavity. Signed by: Dr. Nina Willams M.D. on 12/31/2019 1:18 PM
[2019-12-31] MEDS ORDERED: AUGMENTIN 875-1 EACH PO (13:34)
--- NOTE | 2019-12-31 13:39 | Emergency Department Note ---
History of Present Illnes History of Present Illness Chief Complaint: Respiratory History of Present Illness This is a 69 year old female to the ED with complaints of continued cough and wheezing with no improvement. . Chief Complaint Comment SINCE APRIL HAS BEEN TREATED FOR WHEEZING, COUGH, RIGHT SIDE THROAT AND EAR PAIN. SHE HAS RECEIVED 3-4 DIFFERENT ANTIBIOTICS BUT ONLY SURE OF Z-PACK AND ERYTHROMYCIN. DOES NOT FEE LIKE IT IS GETTING BETTER Historian: Patient Arrival Mode: Car Additional Treatment HOSPITAL CLINIC ASSISTANT: NONE Onset (how long ago): day(s) Radiation: Reports non-radiation Severity: mild Onset quality: gradual Duration (how long): day(s) Timing of current episode: constant Progression: worsening Chronicity: chronic Context: Denies recent illness Relieving factors: none Exacerbating factors: none Past Medical/Family History Physician Review I have reviewed the patient's past medical and family history. Any updates have been documented here. Past Medical History Recent Fever: No Clinical Suspicion of Infectio: No New/Unexplained Change in Ment: No Past Medical History: Hypertension, Diabetes, COPD, Asthma, CAD, Cancer, Anemia, Hyperlipedemia Other Medical History: BREAST CA,( LUMPECTOMY) HEART MURMUR TRIGEMINAL NEUROALGIA Past Surgical History: Cholecysctectomy, Hysterectomy, PCI, Tubal Ligation, Lum pectomy Other Surgery: TRIGEMINAL NEURALGIA SURGERY 20 YEARS AGO Social History Smoking Cessation: Never Smoker Counseling Performed: No Alcohol Use: None Any Illegal Drug Use: No Physically hurt or threatened: No Other Last Tetanus: UTD Any Pre-Existing Lines (PICC,: No Review of Systems Review of Systems Constitutional: Reports no symptoms EENTM: Reports no symptoms Cardiovascular: Reports no symptoms Respiratory: Reports as per HPI, Reports chest congestion, Reports cough Gastrointestinal: Reports no symptoms Genitourinary: Reports no symptoms Musculoskeletal: Reports no symptoms Integumentary: Reports no symptoms Neurological: Reports no symptoms Psychological: Reports no symptoms Endocrine: Reports no symptoms Hematological/Lymphatic: Reports no symptoms Physical Exam Related Data Allergies: Coded Allergies: zolpidem (Verified Allergy, Intermediate, HALLUCINATIONS, 07/03/18) dulaglutide (Verified Allergy, Mild, 07/03/18) letrozole (Verified Allergy, Mild, 07/03/18) aspirin (Unverified Allergy, Unknown, 07/03/18) codeine (Verified Allergy, Unknown, 07/03/18) hydrocodone (Verified Allergy, Unknown, 07/03/18) iodine (Verified Allergy, Unknown, 07/03/18) oxycodone (Unverified Allergy, Unknown, 07/03/18) Uncoded Allergies: ADHESIVE TAPE (Allergy, Unknown, 02/05/16) Triage Vital Signs Vital Signs Date Time Temp Pulse Resp B/P (MAP) Pulse Ox O2 Delivery O2 Flow Rate FiO2 12/31/19 09:45 98.7 83 18 182/69 100 Room Air Vital signs reviewed: Yes Physical Exam CONSTITUTIONAL Constitutional: Present well-developed, Present well-nourished HENT HENT: Present normocephalic, Present atraumatic, Present oropharynx clear/moist, Present nose normal HENT L/R: Present left ext ear normal, Present right ext ear normal EYES Eyes: Reports PERRL, Reports conjunctivae normal NECK Neck: Present ROM normal PULMONARY Pulmonary: Present effort normal, Present breath sounds normal CARDIOVASCULAR Cardiovascular: Present regular rhythm, Present heart sounds normal, Present capillary refill normal, Present normal rate GASTROINTESTINAL Abdominal: Present soft, Present nontender, Present bowel sounds normal GENITOURINARY Genitourinary: Present exam deferred SKIN Skin: Present warm, Present dry MUSCULOSKELETAL Musculoskeletal: Present ROM normal NEUROLOGICAL Neurological: Present alert, Present oriented x 3, Present no gross motor or sensory deficits PSYCHOLOGICAL Psychological: Present mood/affect normal, Present judgement normal Results Laboratory Result Diagram: 12/31/19 1100 12/31/19 1100 Laboratory Laboratory Tests Test 12/31/19 11:00 White Blood Count 8.67 x10e3/uL (4.8-10.8) Red Blood Count 5.56 x10e6/uL (3.6-5.1) Hemoglobin 13.3 g/dL (12.0-16.0) Hematocrit 43.9 % (34.2-44.1) Mean Corpuscular Volume 79.0 fL (81-99) Mean Corpuscular Hemoglobin 23.9 pg (28-32) Mean Corpuscular Hemoglobin Concent 30.3 g/dL (31-35) Red Cell Distribution Width 15.7 % (11.7-14.4) Platelet Count 241 x10e3/uL (140-360) Neutrophils (%) (Auto) 62.7 % (38.7-80.0) Lymphocytes (%) (Auto) 24.9 % (18.0-39.1) Monocytes (%) (Auto) 7.6 % (4.4-11.3) Eosinophils (%) (Auto) 4.0 % (0.0-6.0) Basophils (%) (Auto) 0.3 % (0.0-1.0) Neutrophils # (Auto) 5.4 (2.1-6.9) Lymphocytes # (Auto) 2.2 (1.0-3.2) Monocytes # (Auto) 0.7 (0.2-0.8) Eosinophils # (Auto) 0.4 (0.0-0.4) Basophils # (Auto) 0.0 (0.0-0.1) Absolute Immature Granulocyte (auto 0.04 x10e3/uL (0-0.1) Prothrombin Time 11.7 seconds (11.9-14.5) Prothromb Time International Ratio 0.82 Sodium Level 143 mmol/L (136-145) Potassium Level 4.1 mmol/L (3.5-5.1) Chloride Level 108 mmol/L (98-107) Carbon Dioxide Level 20 mmol/L (22-29) Anion Gap 19.1 mmol/L (8-16) Blood Urea Nitrogen 17 mg/dL (7-26) Creatinine 1.04 mg/dL (0.57-1.11) Estimat Glomerular Filtration Rate > 60 ML/MIN (60-) BUN/Creatinine Ratio 16 (6-25) Glucose Level 135 mg/dL (74-118) Calcium Level 9.1 mg/dL (8.4-10.2) Total Bilirubin 0.3 mg/dL (0.2-1.2) Aspartate Amino Transf (AST/SGOT) 15 IU/L (5-34) Alanine Aminotransferase (ALT/SGPT) 15 IU/L (0-55) Alkaline Phosphatase 88 IU/L (40-150) Total Protein 7.7 g/dL (6.5-8.1) Albumin 4.4 g/dL (3.5-5.0) Globulin 3.3 g/dL (2.3-3.5) Albumin/Globulin Ratio 1.3 (0.8-2.0) Imaging Imaging results reviewed: Yes Impressions IMPRESSION: 1. Minimal mucosal thickening of the right maxillary sinus, otherwise the paranasal sinuses-pathways are clear without evidence of sinusitis. 2. No mass or polyp in the nasal cavity. Signed by: Dr. Nina Willams M.D. on 12/31/2019 1:18 PM Assessment & Plan Medical Decision Making MDM 69-year-old well-appearing female arrived to the ED with concerns T need cough and nasal pressure/drainage and postnasal drip. Patient clinically appeared well and is afebrile. CT face findings are consistent with sinusitis. Patient discharged home on Augmentin and instructed to follow up with ENT for further workup and management. All clinical impressions and diagnoses provided are preliminary ED determinations subject to the inherent limitations of an emergent non-scheduled evaluation and possible lack of comprehensive previous records. All patient care including history taking, review of systems, physical exam, nursing notes review, medical decision making, clinical course management in the emergency department, clinical impression, disposition and plan formulation was performed on the date of service. This note was created using a voice-recognition transcribing system. Incorrect words or phrases may have been missed during proofreading. Please interpret accordingly Assessment & Plan Final Impression: (1) Sinusitis Depart Disposition: HOME, SELF-CARE Last Vital Signs Date Time Temp Pulse Resp B/P (MAP) Pulse Ox O2 Delivery O2 Flow Rate FiO2 12/31/19 11:13 66 18 164/73 99 Room Air 12/31/19 09:45 98.7 Home Meds Active Scripts Amoxicillin/Potassium Clav (AUGMENTIN 875-125 TABLET) 1 Each Tablet, 875 MG PO DAILY, #10 TAB Prov:LILIBETH MARINA, DO 12/31/19 Sulfamethoxazole/Trimethoprim (BACTRIM DS TABLET) 1 Each Tablet, 1 TAB PO BID for 5 Days, #10 TAB 0 Refills Prov:YANET COATS SYSTEMS SPEC 07/03/18 Reported Medications Linagliptin (TRADJENTA) 5 Mg Tablet, 5 MG PO DAILY 07/03/18 Metoprolol Tartrate (METOPROLOL TARTRATE) 50 Mg Tablet, 50 MG PO DAILY, TAB 07/03/18 Eplerenone (INSPRA) 50 Mg Tablet, 50 MG PO DAILY 07/03/18 Verapamil Hcl (VERAPAMIL ER) 120 Mg Cap24h.pel, 360 MG PO DAILY 07/03/18 Cyclobenzaprine Hcl (CYCLOBENZAPRINE HCL) 10 Mg Tablet, 10 MG PO TID PRN for MUSCLE SPASMS, TAB 07/03/18 Hydrochlorothiazide (HYDROCHLOROTHIAZIDE) 25 Mg Tablet, 50 MG PO DAILY, #30 TAB 01/25/15 Insulin Aspart (NOVOLOG) 100 Units/1 Ml Inj 03/07/13 Insulin Detemir* (LEVEMIR 3ML FLEXPEN*) 100 Units/Ml Inj, 30 UNITS SQ BEDTIME 03/07/13 Medications in the ED Diphenhydramine HCl 25 mg NOW ONCE IV Last administered on 12/31/19at 12:12; Admin Dose 25 MG; Start 12/31/19 at 11:30; Stop 12/31/19 at 11:46; Status DC LILIBETH MARINA, Dec 31, 2019 13:38
[2019-12-31] MEDS ORDERED: IOPAMIDOL 370 MG/ML 200 ML INFUS..BTL INJ ONE (14:00)
[2019-12-31] MEDS ORDERED: SODIUM CHLORIDE 0.9% 50ML 50 ML ONE (14:00)
== END 2019-12-31 14:07 | disposition home or self-care (01) ==
LOC: ER 10:04
DX: J32.9 Chronic sinusitis, unspecified (principal); R05 Cough; E11.65 Type 2 diabetes mellitus with hyperglycemia; I10 Essential (primary) hypertension; E78.5 Hyperlipidemia, unspecified; J44.9 Chronic obstructive pulmonary disease, unspecified; I25.10 Atherosclerotic heart disease of native coronary artery without angina pectoris; Z85.3 Personal history of malignant neoplasm of breast
CPT/HCPCS: 36415; 70487; 71260; 80053; 85025; 85610; 99284; J1200; Q9967

== ENCOUNTER 2020-01-26 07:06 | Emergency (ER) | payer OTHER ==
[~2020-01-26] VITALS: Ht 162.6 cm; Wt 92.5 kg
[~2020-01-26 07:06] MED LIST changes: +AUGMENTIN 875-1 EACH PO
--- NOTE | 2020-01-26 07:28 | Emergency Department Note ---
History of Present Illnes History of Present Illness Chief Complaint: General Medicine Complaints History of Present Illness This is a 69 year old female Chief Complaint Comment PATIENT IN FROM HOME WITH COMPLAINTS OF DIZZINESS STARTING THIS MORNING WHEN SHE WAS PUTTING ON HER SHOES, STATES SHE HAD A SUDDEN EPISODE OF DIZZINESS AND BECAME DIAPHORETIC AND NAUSEATED WHEN IT HAPPENED. PATIENT STATES THE DIZZINESS HAS NOW RESOLVED. PATIENT STATES SHE HAD A SIMILAR EPISODE OF DIZZINESS YESTERDAY. PATIENT ALSO WITH COMPLAINTS OF CHRONIC RIGHT SIDED NECK PAIN. Historian: Patient Arrival Mode: Car Licensed Aircraft Maintenance Engineer Required: No Onset (how long ago): hour(s) (1) Location: Head Quality: Dizzy Radiation: Reports non-radiation Severity: moderate Onset quality: sudden Duration (how long): hour(s) (1) Timing of current episode: sporadic Progression: waxing and waning Chronicity: new Context: Denies recent illness, Denies recent surgery Relieving factors: none Exacerbating factors: none Associated symptoms: Reports denies other symptoms Treatments prior to arrival: none Past Medical/Family History Physician Review I have reviewed the patient's past medical and family history. Any updates have been documented here. Past Medical History Recent Fever: No Clinical Suspicion of Infectio: No New/Unexplained Change in Ment: No Past Medical History: Hypertension, Diabetes, COPD, Asthma, CAD, Cancer, Anemia, Hyperlipedemia Other Medical History: BREAST CA,( LUMPECTOMY) HEART MURMUR TRIGEMINAL NEURALGIA Past Surgical History: Cholecysctectomy, Hysterectomy, PCI, Tubal Ligation, Lumpectomy Other Surgery: TRIGEMINAL NEURALGIA SURGERY 20 YEARS AGO Social History Physically hurt or threatened: No Other Last Tetanus: UTD Review of Systems Review of Systems Constitutional: Reports no symptoms, Reports as per HPI EENTM: Reports no symptoms Cardiovascular: Reports no symptoms Respiratory: Reports no symptoms Gastrointestinal: Reports no symptoms Genitourinary: Reports no symptoms Musculoskeletal: Reports no symptoms Integumentary: Reports no symptoms Neurological: Reports as per HPI, Reports other (Dizzy); Denies headache, Denies numbness, Denies paresthesia Psychological: Reports no symptoms Endocrine: Reports no symptoms Hematological/Lymphatic: Reports no symptoms Physical Exam Related Data Allergies: Coded Allergies: zolpidem (Verified Allergy, Intermediate, HALLUCINATIONS, 01/26/20) dulaglutide (Verified Allergy, Mild, 01/26/20) letrozole (Verified Allergy, Mild, 01/26/20) aspirin (Unverified Allergy, Unknown, 01/26/20) codeine (Verified Allergy, Unknown, 01/26/20) hydrocodone (Verified Allergy, Unknown, 01/26/20) iodine (Verified Allergy, Unknown, 07/03/18) oxycodone (Unverified Allergy, Unknown, 07/03/18) Uncoded Allergies: ADHESIVE TAPE (Allergy, Unknown, 02/05/16) Triage Vital Signs Vital Signs Date Time Temp Pulse Resp B/P (MAP) Pulse Ox O2 Delivery O2 Flow Rate FiO2 01/26/20 07:14 97.9 62 18 106/65 100 Room Air Vital signs reviewed: Yes Physical Exam CONSTITUTIONAL Constitutional: Present well-developed, Present well-nourished HENT HENT: Present normocephalic, Present atraumatic, Present oropharynx clear/moist, Present nose normal HENT L/R: Present left ext ear normal, Present right ext ear normal EYES Eyes: Reports PERRL, Reports conjunctivae normal NECK Neck: Present ROM normal PULMONARY Pulmonary: Present effort normal, Present breath sounds normal CARDIOVASCULAR Cardiovascular: Present regular rhythm, Present heart sounds normal, Present capillary refill normal, Present normal rate GASTROINTESTINAL Abdominal: Present soft, Present nontender, Present bowel sounds normal GENITOURINARY Genitourinary: Present exam deferred SKIN Skin: Present warm, Present dry MUSCULOSKELETAL Musculoskeletal: Present ROM normal NEUROLOGICAL Neurological: Present alert, Present oriented x 3, Present no gross motor or sensory deficits; Absent cranial nerve deficit, Absent sensory deficit, Absent abnormal coordination, Absent weakness PSYCHOLOGICAL Psychological: Present mood/affect normal, Present judgement normal Results Laboratory Lab results reviewed: Yes Imaging Imaging results reviewed: Yes Diagnostics Tests Diagnostic test(s) reviewed: Yes Assessment & Plan Medical Decision Making [facility] 69 y.o F presents for dizziness. Sudden in onset. No neuro findings. Initial diff includes central vs peripheral dizziness vs URI among others. Diagnosis favors peripheral dizziness. Improved with meclizine. HINTS neg, no FND, CN II- XII intact. Discussed f/u w/ neuro and PCP. Rx meclizine. Patient appropriate for DC. Assessment & Plan Final Impression: (1) Vertigo Depart Disposition: HOME, SELF-CARE Last Vital Signs Date Time Temp Pulse Resp B/P (MAP) Pulse Ox O2 Delivery O2 Flow Rate FiO2 01/26/20 07:14 97.9 62 18 106/65 100 Room Air Home Meds Active Scripts Amoxicillin/Potassium Clav (AUGMENTIN 875-125 TABLET) 1 Each Tablet, 875 MG PO DAILY, #10 TAB Prov:LILIBETH MARINA DO 12/31/19 Sulfamethoxazole/Trimethoprim (BACTRIM DS TABLET) 1 Each Tablet, 1 TAB PO BID for 5 Days, #10 TAB 0 Refills Prov:YANET COATS RAIL SIGNAL DESIGNER 07/03/18 Reported Medications Linagliptin (TRADJENTA) 5 Mg Tablet, 5 MG PO DAILY 07/03/18 Metoprolol Tartrate (METOPROLOL TARTRATE) 50 Mg Tablet, 50 MG PO DAILY, TAB 07/03/18 Eplerenone (INSPRA) 50 Mg Tablet, 50 MG PO DAILY 07/03/18 Verapamil Hcl (VERAPAMIL ER) 120 Mg Cap24h.pel, 360 MG PO DAILY 07/03/18 Cyclobenzaprine Hcl (CYCLOBENZAPRINE HCL) 10 Mg Tablet, 10 MG PO TID PRN for MUSCLE SPASMS, TAB 07/03/18 Hydrochlorothiazide (HYDROCHLOROTHIAZIDE) 25 Mg Tablet, 50 MG PO DAILY, #30 TAB 01/25/15 Insulin Aspart (NOVOLOG) 100 Units/1 Ml Inj 03/07/13 Insulin Detemir* (LEVEMIR 3ML FLEXPEN*) 100 Units/Ml Inj, 30 UNITS SQ BEDTIME 03/07/13 YVON GORDON MD Jan 26, 2020 07:28
[2020-01-26] MEDS ORDERED: MECLIZINE HCL 12.5 MG TAB PO ONE (07:30)
[2020-01-26] MEDS ORDERED: ONDANSETRON HCL 4 MG ORAL DISINTEGRATING TAB PO PRN (07:45)
[2020-01-26 07:54] LABS: BASOPHILS % 0.5 % (0.0-1.0); EOSINOPHILS # (AUTO) 0.3 (0.0-0.4); EOSINOPHILS % 4.8 % (0.0-6.0); HEMATOCRIT 40.6 % (34.2-44.1); HEMOGLOBIN 12.5 g/dL (12.0-16.0); LYMPHOCYTES # (AUTO) 1.9 (1.0-3.2); LYMPHOCYTES % 29.1 % (18.0-39.1); MEAN CORPUSCULAR HEMOGLOBIN 24.5 pg (28-32); MEAN CORPUSCULAR HGB CONC 30.8 g/dL (31-35); MEAN CORPUSCULAR VOLUME 79.6 fL (81-99); MONOCYTES # (AUTO) 0.6 (0.2-0.8); MONOCYTES % 9.5 % (4.4-11.3); NEUTROPHILS # (AUTO) 3.6 (2.1-6.9); NEUTROPHILS % 55.6 % (38.7-80.0); PLATELET COUNT 246 x10e3/uL (140-360); RED CELL DISTRIBUTION WIDTH 14.9 % (11.7-14.4)
[2020-01-26 08:12] LABS: INR 0.93; PROTHROMBIN TIME 12.9 seconds (11.9-14.5)
--- OUTSIDE RECORDS SUMMARY | 2020-01-26 08:16 | XMS REPORT | Clinical Summary ---
Author Author CHRISTIE [facility] Address Unknown Phone Unavailable Care Team Providers Care Brush Finisher Name Role Phone Mikal Shaver PCP Allergies Comments Active Allergy Reactions Severity Noted Date hallucinations Zolpidem Rash High 09/10/2014 hallucinates Codeine Rash High 09/10/2014 Hydrocortisone Rash High 09/10/2014 Influenza Virus Vaccines Hives High 09/10 Iodine And Iodide Hives High 09/10/2014 Containing Products Letrozole Analogues Itching 01/31/2019 Oxycodone Rash High 09/10/2014 Oxycodone 12/28/2015 Xmu-Ftgmgexow-Mvr Ketorolac Hives High 09/10/2014 Whole arm swells [...] 2 diabetes mellitus without complication, unspecified whether terminal computer operator insulin use (HCC); Essential hypertension; Diabetes mellitus due to underlying condition with hyperglycemia, with long-term current use of insulin (HCC) 01/30/2019 Emergency Cardiology - 02/02/2019 01/30/2019 Travel 01/30/2019 Orders Only General Internal Me dicine after 01/25/2019 Social History Date Tobacco Use Types Packs/Day [...] ms QTC Calculatio n(Bazett) 408 ms P Wald[place] 49 degrees R Waldwick 18 degrees T [place] 155 degrees Normal sinus rhythm T wave [...] ms QTC Calculatio n(Bazett) 439 ms P [place] 60 degrees R [place] 10 degrees T [place] 106 degrees Normal sinus rhythm Left ventricula r hypertroph y with repolariza tion abnormalit y Abnormal ECG When compared with ECG of 6 03:34, Nonspecifi c T wave abnormalit y has replaced inverted T waves in Inferior leads ECG 12-LEAD STAT 01/30/2019 9:42 AM CDT after 01/25/2019 Results * RHYTHM STRIP - SCAN (02/09/2019 [...] CDT) Specimen Narrative Performed At Addendum Begins Auramist REPORT STATUS:A Addendum: February 03, 2019 at [...] Report Verified Date/Time: 9 10:25:08 Reading Location: [facility] Reading Room - [address] Addendum Ends FINAL REPORT CT coronary [...] the contrast sheet scan elieser in the [email or web address] system for the amount and route of contrast given. This exam was performed according to [facility] departmental dose-optimisation programme, which incl udes automated [...] Coronary calcification was a nalyzed using the [employer] system software. These are the results of [...] postprocessing, the result would be sent to [email or web address] w hen available. However, the data will [...] non-vascular findings will be reviewed by the Slot Service Specialist Radiologist and addendum will be added as [...] Report Verified Date/Time: 02/03/2019 10:25:08 Reading Location: [facility] Diagnostic Imaging Reading Room - [facility] [phone] FINAL REPORT [address] [...] performed. Coronary calcification was analyzed using the [employer] On[employer] system software. These are the results of [...] postprocessing, the result would be sent to [email or web address] when available. However, the data will likely [...] findings will be re viewed by the Slot Service Specialist Radiologist and addendum will be added as needed. Signed: Suhas Richards MD Report Verified Date/Time: 02/02/2019 14:31:21 Performing Organization Address City/State/Zipcode Ph one Number GE RIS * Basic metabolic panel (02/02/2019 5:31 AM CDT) Only the most recent of 4 results within the time period is included. Sodium 135 (L) 136 - 145 meq/L [facility] Potassium 4.2 3.5 - 5.1 meq/L [facility] Chloride 103 98 - 107 meq/L [facility] CO2 24 22 - 29 meq/L [facility] BUN 28 (H) 7 - 21 mg/dL [facility] Creatinine 1.42 (H) 0.57 - 1.25 mg/dL [facility] Glucose 268 (H) 70 - 105 mg/dL [facility] Calcium 9.2 8.4 - 10.2 mg/dL [facility] EGFR 45Comment: ESTIMATED GFR IS mL/min/1.73 sq m [facility] NOT ACCURATE CREATININE [facility] CLEARANCE IN PREDICTING GLOMERULAR FILTRATION RATE. ESTIMATED GFR IS NOT APPLICABLE FOR DIALYSIS PATIENTS. Specimen Blood Performing Organization Address [facility] one Number CHRISTIE [address] [facility] * POC-Glucose meter (02/01/2019 9:14 PM CDT) Only the most recent of 11 results within the time period is included. POC-Glucose Meter 96Comment: TESTED AT [facility] 70 - 110 mg/dL [address] [address] [facility] Specimen Blood Performing Organization Address [facility] one Number [address] [facility] * Lipid panel (01/31/2019 5:45 AM CDT) Triglycerides 250 mg/dL [facility] Cholesterol 142 mg/dL [facility] HDL 29 mg/dL [facility] LDL Calculated 63 mg/dL [facility] Specimen Blood Narrative Performed At Triglyceride Reference Range: [facility] Low Risk <150 [facility] [id number] High Risk 200-499 Very High Risk>=500 Cholesterol Reference Range: Low Risk <200 [id number] High Risk>240 HDL Cholesterol Reference Range: Low Risk >=60 High Risk <40 LDL Cholesterol Reference Range: Optimal<100 Near [id number] [id number] Very High >=190 Performing Organization Address [facility] one Number [address] [facility] * TSH/Free T4 If Indicated (01/31/2019 4:45 AM CDT) TSH 0.84 0.35 - 4.94 uIU/mL [facility] Specimen Blood Performing Organization Address City/[facility] one Number [facility] [address] [place], [place] [address] [facility] * CBC with platelet count + automated diff (01/31/2019 4:45 AM CDT) Only the most recent of 2 results within the time period is included. WBC 6.6 3.5 - 10.5 K/L [facility] RBC 4.75 3.93 - 5.22 M/L [facility] Hemoglobin 11.4 11.2 - 15.7 GM/DL [facility] Hematocrit 37.7 34.1 - 44.9 % [facility] MCV 79.4 79.4 - 94.8 fL [facility] MCH 24.0 (L) 25.6 - 32.2 pg [facility] MCHC 30.2 (L) 32.2 - 35.5 GM/DL [facility] RDW 15.9 (H) 11.7 - 14.4 % [facility] Platelets 198 150 - 450 K/CU MM [facility] MPV 10.8 9.4 - 12.3 fL [facility] nRBC 0 0 - 0 /100 WBC [facility] % Neutros 53 % [facility] % Lymphs 34 % [facility] % Monos 9 % [facility] % Eos 3 % [facility] % Baso 0 % [facility] # Neutros 3.47 1.56 - 6.13 K/L [facility] # Lymphs 2.25 1.18 - 3.74 K/L [facility] # Monos 0.61 (H) 0.24 - 0.36 K/L [facility] # Eos 0.21 0.04 - 0.36 K/L [facility] # Baso 0.02 0.01 - 0.08 K/L [facility] Immature 0 0 - 1 % [facility] Granulocytes-Relative [facility] Specimen Blood Performing Organization Address City/[facility] Ph one Number [address] [facility] * Hemoglobin A1c (01/31/2019 4:45 AM CDT) Hemoglobin A1C 9.4 (H) 4.3 - 6.1 % [facility] Specimen Blood Performing Organization Address [facility] one Number [place] [address] [facility] * Troponin I (01/30/2019 8:41 PM CDT) Only the most recent of 3 results within the time period is included. Troponin I <0.01 0.00 - 0.03 ng/mL [facility] Specimen Blood Narrative Performed At Troponin I (TnI) levels must be interpreted in the co ntext of the presenting [facility] symptoms and the clinical findings. Elevated TnI leve ls indicate myocardial [facility] damage, but are not specific for ischem ic heart disease. Elevated TnI levels are seen in patients with other cardiac con ditions (including myocarditis and congestive heart failure), and slight T nI elevations occur in patients with other conditions, including sepsis, darien al failure, acidosis, acute neurological disease, and persistent tachyarrhythmia . Performing Organization Address [facility] one Number [place] [address] [facility] * ECG 12 lead (01/30/2019 8:32 PM CDT) Only the most recent of 3 results within the time period is included. Specimen Narrative Performed At Ventricular Rate 70 BPM GE MUSE Atrial Rate 70 BPM P-R Interval 160 ms QRS Duration 62 ms Q-T Interval 378 ms QTC Calculation(Bazett) 408 ms P Waldwick 49 degrees R Waldwick 18 degrees T [place] 155 degrees Normal sinus rhythm T wave [...] 378 ms QTC Calculation(Bazett) 408 ms P [place] 49 degrees R [place] 18 degrees T [place] 155 degrees Normal sinus rhythm T wave inversin lateral leads consider postischemic changes Abnormal ECG When compared with ECG of 30-JAN-2019 09:42, No significant change was found Confirmed by MD GUEVARA YOCHAI ([id number]) on 02/02/2019 6:31:22 AM Performing Organization Address [facility] one Number GE MUSE * PT/aPTT (01/30/2019 10:30 AM CDT) Protime 13.5 11.9 - 14.2 seconds [facility] INR 1.1 <=5.9 [facility] PTT 28.7 22.5 - 36.0 seconds [facility] Specimen Blood Narrative Performed At Effective 09/17/2018: PT Reference Range Change [facility] New: 11.9-14.2Previous: 11.7-14.7 [facility] MEDICAL CE NTER RECOMMENDED COUMADIN/WARFARIN INR THERA PY RANGES STANDARD DOSE: 2.0-3.0Includes: PRO PHYLAXIS for venous thrombosis, systemic embolization; TREATMENT for venous thro mbosis and/or pulmonary embolus. HIGH RISK: Target INR is 2.5-3.5 for pa tients wiht mechanical heart valves. Performing Organization Address [facility] Ph one Number [address] [facility] * B-type Natriuretic Factor (BNP) (01/30/2019 10:30 AM CDT) BNP <10 0 - 100 pg/mL [facility] Specimen Blood Performing Organization Address City/[facility] Ph one Number [address] [facility] * Magnesium (01/30/2019 10:30 AM CDT) Magnesium 1.7 1.6 - 2.6 mg/dL [facility] Specimen Blood Performing Organization Address [facility] Ph one Number [address] [facility] * XR chest 2 views (01/30/2019 [...] MD Report Verified Date/Time: 10:08:24 Reading Location: [facility] Reading Room Procedure Note Interface, External Ris [...] City/State/Zipcode Ph one Number GE RIS after 01/25/2019 Insurance Payer Benefit Subscriber ID Type Phone Address Plan / Group [employer] - MGD UNITED HMO xxxxxxxxx HMO/PO S CARE POS [employer] [place] [address] (Home) [place] [address] Advance Directives For more information, please contact: [facility] [address] [place] [address] Date Inactivated Comments Code Status Date Activated 02/02/2019 9:30 PM Full Code 01/30/2019 4:46 PM This code status was determined by: Patient 12/29/2015 11:35 PM Full Code 12/28/2015 4:51 PM This code status was determined by: Patient 09/11/2014 1:08 AM Full Code 09/10/2014 4:13 PM This code status was determined by: Patient
--- OUTSIDE RECORDS SUMMARY | 2020-01-26 08:16 | XMS REPORT | Continuity of Care Document ---
Author Author [employer] Organization [employer] Address Unknown Phone Unavailable Care Team Providers Care Field Representative/Health Education Name Role Phone [email or web address] Unavailable Un available Problems Problem Status Onset Date Classification Date Reported Comments Source Hypertension Active 09/09/2012 [facility] Asthma Active 09/09/2012 [facility] Urinary Tract Infection Active 09/09/2012 [facility] Type 2 Diabetes Mellitus - Uncomplicated, Uncontrolled Active 09/09/2012 [facility] Mixed Hyperlipoproteinemia Act ricardo 09/09/2012 [facility] Medications Medication Details Route Status Patient Instructions Ordering Provider Order Date Source BD Pen Needle Mini U/F 31G X 5 MM Miscellaneous ; Start Date: 08/28/2012 (Active) Active 08/28/2012 [facility] Pen [place] 3/16" 31G X 5 MM Miscellaneous ; Start Date: 08/09/2012 (Active) Active 08/09/2012 [facility] Janumet XR 50-1000 MG Oral Tablet Extend ed Release 24 Hour ; Start Date: 08/09/2012 (Active) Active 08/09/2012 [facility] Lunesta 3 MG Oral Tablet ; Sta rt Date: 08/09/2012 (Active) Active 08/09/2012 [facility] Levemir FlexPen 100 UNIT/ML Subcutaneous Solution ; Start Date: 07/04/2012 (Active) Active 07/04/2012 [facility] Gabapentin 300 MG Oral Capsule ; Start Date: 05/08/2012 (Active) Active 05/08/2012 [facility] Letrozole 2.5 MG Oral Tablet ; Start Date: 05/08/2012 (Active) Active 05/08/2012 [facility] TraMADol HCl 50 MG Oral Tablet ; Start Date: 05/08/2012 (Active) Active 05/08/2012 [facility] Benadryl Allergy 25 MG Oral Tablet ; Start Date: 05/08/2012 (Active) Active 05/08/2012 [facility] Citalopram Hydrobromide 20 MG Oral Tablet ; Start Date: 05/08/2012 (Active) Active 05/08/2012 [facility] Meloxicam 7.5 MG Oral Tablet ; Start Date: 05/08/2012 (Active) Active 05/08/2012 [facility] PredniSONE 20 MG Oral Tablet ; Start Date: 05/08/2012 (Active) Active 05/08/2012 [facility] Restoril 15 MG Oral Capsule ; Start Date: 05/08/2012 (Active) Active 05/08/2012 [facility] Cefdinir 300 MG Oral Capsule ; Start Date: 05/08/2012 (Active) Active 05/08/2012 [facility] Metoprolol Succinate ER 25 MG Oral Table t Extended Release 24 Hour ; Start Date: 05/08/2012 (Active) Active 05/08/2012 [facility] Marco 5-20 MG Oral Tablet (Act ricardo) Active [facility] Allergies, Adverse Reactions, Alerts Substance Category Reaction Severity Reaction type Status Date Reported Comments Source Codeine Derivatives drug aller gy drug aller gy Active [facility] Hydrocodone-Acetaminophen TABS drug allergy drug aller gy Active [facility] Ambien TABS drug allergy drug allergy Active [facility] Iodine SOLN drug allergy drug allergy Active [facility] Percodan TABS drug allergy drug allergy Active [facility] Lortab TABS drug allergy drug allergy Active [facility] Fluzone INJ drug allergy drug allergy Active [facility] Immunizations No Data Provided for This [...] ADM Date DC Date Status Source AUDIT [id number] 05/08/2012 05/09/2012 [facility] AUDIT [id number] 06/06/2012 06/06/2012 [facility] EST, Provi aster: MARIFER BERNABE, Status: Pen, Time: 1:45 PM [id number] 06/28/19 13 06/06/2012 [facility] CLARKE Provi aster: FRANCESCA BECK, Status: Pen, Time: 2:00 PM [id number] 06/28/19 13 06/06/2012 [facility] AUDIT [id number] 08/29/2012 08/29/2012 [facility] AUDIT [id number] 09/05/2012 09/06/2012 [facility] AUDIT [id number] 09/09/2012 09/09/2012 [facility] E30, Provi aster: EDYTA CASTILLO, Status: Pen, Time: 2:15 PM [id number] 10/22/19 13 09/09/2012 [facility] Procedures No Data Provided for This Section Assessment and Plan No Data Provided for This Section Plan of Care Plan of Care Date Source [QLH] MICROALBUMIN, RANDOM URINE (W/CREA TININE) 09/05/2012 Routine 09/06/2012 [facility] Social History Social History Date Source Never Drank Alcohol (Active) Marital History - Single (Active) Never A Smoker (Active) 09/09/2012 [facility] Family History Value Date S mark anthonyce Family history of Hypertension (V17.49); (Active) Family history of Diabetes Mellitus (V18.0); (Active) 09/09/2012 [facility] Family history of Diabetes Mellitus (V18 .0); (Active) Family history of Hypertension (V17.49); (Active) 09/06/2012 [facility] Family history of Hypertension (V17.49); (Active) Family history of Diabetes Mellitus (V18.0); (Active) 08/29/2012 [facility] Advance Directives Order Name Results Value Date Source Advance Directives Advance Dir ectives No Advance Directives available. 09/09/2012 [facility] Advance Directives Advance Dir ectives No Advance Directives available. 09/06/2012 [facility] Advance Directives Advance Dir ectives No Advance Directives available. 08/29/2012 [facility] Advance Directives Advance Dir ectives No Advance Directives available. 06/06/2012 [facility] Advance Directives Advance Dir ectives No Advance Directives available. 05/09/2012 [facility] Functional Status No Data Provided for This Section
--- OUTSIDE RECORDS SUMMARY | 2020-01-26 08:16 | XMS REPORT | Continuity of Care Document ---
Author Author [facility] t Organization [facility] Address 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 Name Role Phone Shay GREENWOOD PCP Cesar SUE, Iraj Armstrong Attphys Yasmany MARINA Attphys Unavailable Flores SUE, Elvira Saleh Attphys [phone] Paula SCHULTZ Attphys Unavailable Dennys RODRIGUEZ Attphys Unavailable Ludin Ann MD Attphys [phone] TREVOR OLIVEIRA Attphys Unavailable Matt Dudley MD Attphys John SUE, Lalo Attphys [phone] Gino SUE, Jose Attphys MATT DUDLEY Attphys Unavailable Becky ZUNIGA Attphys Unavailable OSCAR ANN Attphys Unavailable Ankita NEWMAN Attphys Unavailable Tab Ornelas Attphys Unavailable Sampson LUNA Attphys Unavailable JOHN LALO Admphys Unavailable PRACHIMEI OSCAR RINALDI Admphys Unavailable Payers Payer Name Policy Type Policy Number Effective Date Expiration Date [id number] 2018 [facility]00 [facility] CAREUNITED HMO POS SELECT CHOICExxxx xxxxxHMO/POS xxxxxxxxx [facility] Problems Condition Name Condition Details Condition Category Status Onset Date Resolution Date Last Treatment Date Treating Clinician Comments Source Acute angina Acute angina Disease Active 2019-01-30 00:00:00 [facility] Facial paresthesia Facial paresthesia Problem Active 2015-01-25 00:00:0 0 [facility] Weakness of right side of body Right sided weakness Problem Ac tive 2015-01-25 00:00:00 [facility] Chest pain Chest pain Disease Active 2014-09-10 00:00:00 [facility] Cervical myofascial strain Problem Active [facility] Hypertension Hype rtension Active 09/09/2012 [facility] Problem Active 2012-09-09 07:37:42 Kareem neva Mensah Asthma Asth ma Active 09/09/2012 [facility] Problem Active 2012-09-09 07:37:42 Devan Mensah Urinary Tract Infection Urin betty Tract Infection Active 09/09/2012 [facility] Problem Active 2012-09-09 07:37: 42 [facility] Type 2 Diabetes Mellitus - Uncomplicated, Uncontrolled Type 2 Diabetes Mellitus - Uncomplicated, Uncontrolled Active 09/09/2012 [facility] Problem Active 2012-09-09 07:37:42 Lis Mensah Mixed Hyperlipoproteinemia Mix ed Hyperlipoproteinemia Active 09/09/2012 [facility] Problem Active 2012-09-09 07:37: 42 [facility] Allergies, Adverse Reactions, Alerts Allergy Name Allergy Type Status Severity Reaction(s) Onset Date Inacti ve Date Treating Clinician Comments Source Letrozole Analogues Drug Allergy Active Itching 2019-01-31 00:00:0 0 [facility] Iodine Allergy to substance Active 2018-07-03 00:00:00 [facility] Codeine Allergy to substance Active 2018-07-03 00:00:00 [facility] Hydrocodone Allergy to substance Active 2018-07-03 00:00:00 [facility] Oxycodone Allergy to substance Active 2018-07-03 00:00:00 [facility] Aspirin Allergy to substance Active 2018-07-03 00:00:00 [facility] Zolpidem Allergy to substance Active Moderate HALLUCINATIONS 2018-07-03 00:00:00 [facility] Letrozole Allergy to substance Active Mild 2018-07-03 00:00:00 [facility] dulaglutide Allergy to substance Active Mild 2018-07-03 00:00:00 [facility] ADHESIVE TAPE Allergy to substance Active 2016-02-05 00:00: 00 [facility] Oxycodone Nlb-Gliioqzmy-Ljc Propensity to adverse reactions Active 2015-12-28 00:00:00 [facility] Zolpidem Drug Allergy Active Rash 2014-09-10 00:00:00 hallucinations [facility] Codeine Drug Allergy Active Rash 2014-09-10 00:00:00 hallucinates [facility] Hydrocortisone Drug Allergy Active Rash 2014-09-10 00:00:00 [facility] Influenza Virus Vaccines Drug Allergy Active Hives 2014-09-10 00: 00:00 [facility] Iodine And Iodide Containing Products Drug Allergy Active Hives 2014-09-10 00:00:00 [facility] Oxycodone Drug Allergy Active Rash 2014-09-10 00:00:00 [facility] Ketorolac Drug Allergy Active Hives 2014-09-10 00:00:00 [facility] Tuberculin Ppd Drug Allergy Active Severe 2014-09-10 00:00:00 Whole arm swells up [facility] Cetirizine Drug Allergy Active Rash 2014-09-10 00:00:00 [facility] Codeine Derivatives Codeine Derivatives Active [facility] Hydrocodone-Acetaminophen TABS Hydrocodone-Acetaminophen TABS Active [facility] Ambien TABS Ambien TABS Active [facility] Iodine SOLN Iodine SOLN Active [facility] Percodan TABS Percodan TABS Active [facility] Lortab TABS Lortab TABS Active [facility] Fluzone INJ Fluzone INJ Active [facility] Family History Family Member Diagnosis Comments Start Date Stop Date Source Unknown Family Member Family History 2012-08-29 07:36:24 2 07:36:24 [facility] Social History Social Habit Start Date Stop Date Quantity Comments Source Sex Assigned At [facility] Social History 2012-09-09 07:37:42 2012-09-09 07:37:42 [facility] Smoking Status Start Date Stop Date Source Never smoker [facility] Medications Ordered Medication Name Filled Medication Name Start Date Stop Da te Current Medication? Ordering Clinician Indication Dosage Frequency Signature (SIG) Comments Components Source Amoxicillin/Potassium Clav (Augmentin 875-125 Tablet) 1 Each TABLET Amoxicillin/Potassium Clav (Augmentin 875-125 Tablet) 1 Each TABLET 2019-12-31 13:34:00 Yes 875 Daily [facility] aspirin 81 MG EC tablet 2019-02-03 00:00:00 2019-03-05 23:59:00 No 81mg QD Take 1 tablet (81 mg total) by mouth daily for 30 days. [facility] amLODIPine (NORVASC) 10 MG tablet 2019-02-03 00:00:00 2018 23:59:00 No 10mg QD Take 1 tablet (10 mg total) by mouth thais ly for 30 days. [facility] gabapentin (NEURONTIN) 600 MG tablet 2019-02-02 17:05: 46 2019-02-02 00:00:00 No 600mg QD Take 600 mg by mouth nightly . [facility] hydrochlorothiazide (HYDRODIURIL) 50 MG tablet 2 17:05:46 2019-02-02 00:00:00 No 50mg QD Take 50 mg by mouth daily. [facility] isosorbide mononitrate (IMDUR) 60 MG 24 hr tablet 2019-02-02 17:05:46 2019-02-02 00:00:00 No 60mg QD Take 60 mg by mouth nightly. [facility] metoprolol (TOPROL-XL) 50 MG 24 hr tablet 2018-0414 17:05:46 2019-02-02 00:00:00 No 50mg QD Take 50 mg by mouth daily. [facility] ranolazine (RANEXA) 500 MG 12 hr tablet 16:41:42 2019-02-02 00:00:00 No 500mg Q.5D Take 500 mg by mouth 2 (two) ti mes daily. [facility] ranolazine (RANEXA) 1,000 mg SR tablet 2019-02-02 00:00:00 Yes 1000mg Q.5D Take 1 tablet (1,000 mg total) by mouth 2 (two) times daily. [facility] gabapentin (NEURONTIN) 600 MG tablet 2019-02-02 00:00:00 Ye s 600mg QD Take 1 tablet (600 mg total) by mouth nightly. [facility] metoprolol (TOPROL-XL) 50 MG 24 hr tablet 2019-02-02 00:00:00 Yes 50mg QD Take 1 tablet (50 mg total) by mouth daily. [facility] hydroCHLOROthiazide (HYDRODIURIL) 50 MG tablet 2019-02-02 00:00: 00 Yes 50mg QD Take 1 tablet (50 mg total) by mouth daily. [facility] verapamil (CALAN-SR) 240 MG CR tablet 2019-01-30 15:30 :18 2019-01-30 00:00:00 No 360mg QD Take 360 mg by mouth nightly. [facility] Sulfamethoxazole/Trimethoprim (Bactrim Ds Tablet) 1 Ea ch TABLET Sulfamethoxazole/Trimethoprim (Bactrim Ds Tablet) 1 Each TABLET 2018-07-03 14:44:00 Yes 1 Twice A Day [facility] melatonin 3 mg Tab tablet 2018-03-06 09:10:23 Yes Take by mouth. [facility] insulin degludec (TRESIBA FLEXTOUCH U-200) 200 unit/mL (3 mL ) InPn 2018-03-06 09:10:23 Yes Inject subcutaneously. [facility] DULoxetine (CYMBALTA) 30 MG capsule 2015-12-28 23:39:57 Yes diabetic complication causing injury to some body nerves 30mg QD Take 30 mg by mouth nightly. [facility] linagliptin 5 mg Tab 2015-12-28 23:25:04 Yes 5mg QD Take 5 mg by mouth nightly . [facility] Aspirin (Aspirin Ec) 81 Mg TABLET. Aspirin (Aspirin Ec) 81 Mg TABLET. 2015-01-27 10:39:00 2018-07-03 00:00:00 No 81 Daily [facility] Cefuroxime Axetil (Cefuroxime) 250 Mg TABLET Cefuroxim e Axetil (Cefuroxime) 250 Mg TABLET 2015-01-27 10:37:00 2018-07-03 00:00:00 No 250 Every 12 Hours [facility] Mometasone Furoate (Nasonex) 17 Gm SPRAY Mometasone Fu roate (Nasonex) 17 Gm SPRAY 2015-01-27 10:37:00 2018-07-03 00:00:00 No 2 Shahnaz y [facility] diphenhydrAMINE (BENADRYL) 25 mg capsule 2014-09-10 17:36:40 Yes 25mg Take 25 mg by mouth every night as needed for Itching (also for itching as well as sleeep aid). [facility] insulin aspart (NOVOLOG) 100 unit/mL InPn 2014-09-10 17:36:40 Yes 15U Inject 15 Units subcutaneously 3 (three) times daily with meals. [facility] insulin detemir (LEVEMIR) 100 unit/mL injection 2014-09-10 17:36 :40 Yes 45U QD Inject 45 Units subcutaneously daily. [facility] FOLIC ACID/MULTIVITS-MIN/LUT (CENTRUM SILVER ORAL) 2014-08 17:36:39 Yes 1{tbl} QD Take 1 tablet by mouth daily. [facility] cholecalciferol, vitamin D3, 1,000 unit capsule 2014-09-10 17:36 :39 Yes 1000U QD Take 1,000 Units by mouth daily. [facility] letrozole (FEMARA) 2.5 mg tablet 2014-09-10 17:36:39 Yes 2.5mg QD Take 2.5 mg by mouth daily. [facility] Marco 5-20 MG Oral Tablet 2012-09-09 07:37:42 Yes (Active) [facility] Pen Needle Mini U/F 31G X 5 MM Miscellaneous 2012-08-28 05:00 :00 Yes ; Start Date: 08/28/2012 (Active) [facility] Pen Macfarlan 3/16" 31G X 5 MM Miscellaneous 2012-08-09 05:00:00 Yes ; Start Date: 08/09/2012 (Active) [facility] Janumet XR 50-1000 MG Oral Tablet Extended Release 24 Hour 2012-08-09 05:00:00 Yes ; Start Date: 08/09/2012 (Activ e) [facility] Lunesta 3 MG Oral Tablet 2012-08-09 05:00:00 [...] Yes ; Start Date: 05/08/2012 (Active) [facility] Citalopram Hydrobromide 20 MG Oral Tablet [...] ; Start Date: 05/08/2012 (Act ricardo) [facility] Cyclobenzaprine Hcl Cyclobenzaprine Hcl Yes 10 Three Times A Day as needed for Muscle Spasms [facility] Eplerenone (Inspra) 50 Mg TABLET Eplerenone (Inspra) 50 Mg TABLET Yes 50 Daily [facility] Hydrochlorothiazide Hydrochlorothiazide Yes 50 Daily [facility] Insulin Aspart (Novolog) 100 Units/1 Ml INJ Insulin As part (Novolog) 100 Units/1 Ml INJ Yes [facility] Insulin Detemir (Levemir 3ML Flexpen*) 100 Units/Ml IN J Insulin Detemir (Levemir 3ML Flexpen*) 100 Units/Ml INJ Yes 30 Bedtime [facility] Linagliptin (Tradjenta) 5 Mg TABLET Linagliptin (Tradjenta) 5 Mg TABL ET Yes 5 Daily [facility] Metoprolol Tartrate Metoprolol Tartrate Yes 50 Daily [facility] Verapamil Hcl (Verapamil Er) 120 Mg CAP24H.PEL Verapam il Hcl (Verapamil Er) 120 Mg CAP24H.PEL Yes 360 Daily [facility] Acetaminophen/Chlorpheniramine (Coricidin Hbp Tablet) 1 Each TABLET Acetaminophen/Chlorpheniramine (Coricidin Hbp Tablet) 1 Each TABLET 2018-07-03 00:00:00 No 2 Q4hrs [facility] Albuterol Sulfate (Proventil Hfa) 6.7 Gm HFA.AER.AD Al buterol Sulfate (Proventil Hfa) 6.7 Gm HFA.AER.AD 2018-07-03 00:00:00 No [facility] Gabapentin Gabapentin 2018-07-03 00:00:00 No 600 Thr ee Times A Day [facility] Isosorbide Mononitrate (Isosorbide Mononitrate Er) 30 Mg TAB.ER.24H Isosorbide Mononitrate (Isosorbide Mononitrate Er) 30 Mg TAB.ER.24H 201 12-23-13 00:00:00 No 30 Daily [facility] Letrozole Letrozole 2018-07-03 00:00:00 No 2.5 Daily [facility] Linagliptin (Tradjenta) 5 Mg TABLET Linagliptin (Tradjenta) 5 Mg TABLET 2018-07-03 00:00:00 No 5 Daily [facility] Losartan Potassium Losartan Potassium 2018-07-03 00:00:00 No 100 Daily [facility] Verapamil Hcl (Verapamil Er) 120 Mg CAP24H.PEL Verapam il Hcl (Verapamil Er) 120 Mg CAP24H.PEL 2018-07-03 00:00:00 No 240 Daily [facility] Amlodipine Bes/Olmesartan Med (Marco 5-40 Mg Tablet) 1 Each TABLET Amlodipine Bes/Olmesartan Med (Marco 5-40 Mg Tablet) 1 Each TABLET 00:00:00 No 1 Daily [facility] Citalopram Hydrobromide (Celexa) 20 Mg TABLET Citalopr am Hydrobromide (Celexa) 20 Mg TABLET 2015-01-25 00:00:00 No 20 Daily [facility] Eszopiclone (Lunesta) 3 Mg TABLET Eszopiclone (Lunesta) 3 Mg TAB LET 2015-01-25 00:00:00 No 3 Bedtime [facility] Ibuprofen (Motrin) 800 Mg TAB Ibuprofen (Motrin) 800 Mg TAB 2015-01-25 00:00:00 No 800 Three Times A Day [facility] Vital Signs Vital Name Observation Time Observation Value Comments Source Weight 2019-12-31 09:45:00 204 [lb_av] [facility] BMI (Body Mass Index) 2019-12-31 09:45:00 35.0 kg/m2 [facility] Body Temperature 2019-09-26 00:29:00 98.3 [degF] [facility] Weight 2019-09-25 22:08:00 207 [lb_av] [facility] BMI (Body Mass Index) 2019-09-25 22:08:00 35.5 kg/m2 [facility] Systolic blood pressure 2019-02-02 16:16:00 112 mm[Hg] [facility] Diastolic blood pressure 2019-02-02 16:16:00 51 mm[Hg] [facility] Heart rate 2019-02-02 16:16:00 75 /min [facility] Body temperature 2019-02-02 16:16:00 36.33 Cinthya [facility] Respiratory rate 2019-02-02 16:16:00 19 /min [facility] Oxygen saturation in Arterial blood by Pulse oximetry 2018-04 16:16:00 98 /min [facility] Body weight Measured 2019-02-02 08:00:00 94.1 kg [facility] BMI 2019-02-02 08:00:00 35.61 kg/m2 [facility] Body height 2019-01-30 19:33:00 162.6 cm [facility] Procedures Procedure Date / Time Performed Performing Clinician [facility] e Computed tomography of maxillofacial area with contrast 00:00:00 [facility] Computed tomography of chest with contrast 2019-12-31 00:00:00 [facility] Computed tomography of brain without radiopaque contrast 2019-09 00:00:00 [facility] Computed tomography of cervical spine without contrast 00:00:00 [facility] Computed tomography of brain without radiopaque contrast 00:00:00 MALOU RODRIGUEZ [facility] X-ray of chest, two views 2019-05-06 00:00:00 COLLEEN ANGUIANO [facility] RHYTHM STRIP - SCAN 2019-02-09 10:24:29 Provider, Default Scansusu verde [facility] REPORT OF PROCEDURE - ENDOSCOPY SCAN 2019-02-04 08:20:32 Pro vider, Default Scanning [facility] RHYTHM STRIP - SCAN 2019-02-04 08:20:29 Provider, Default Parvez verde [facility] CTA HEART CORONARY WITH CALCIUM EVALUATION WITH FFR 13:36:00 Ingris Randolph [facility] BASIC METABOLIC PANEL (7) 2019-02-02 05:31:00 Ingris Randolph [facility] POCT-GLUCOSE METER 2019-02-01 21:14:00 Annika Senaenid i [facility] POCT-GLUCOSE METER 2019-02-01 17:09:00 TirOrly rolandcraig i [facility] POCT-GLUCOSE METER 2019-02-01 11:38:00 TirukirvinOrly beebefortunatohm i [facility] POCT-GLUCOSE METER 2019-02-01 07:15:00 TirukkovclaudiauriOrlylakshm i [facility] BASIC METABOLIC PANEL (7) 2019-02-01 05:13:00 Ingris Randolph [facility] POCT-GLUCOSE METER 2019-01-31 21:13:00 TirukkovallOrly mercadofortunatohm i [facility] POCT-GLUCOSE METER 2019-01-31 17:52:00 TirOrly rolandfortunatohm i [facility] POCT-GLUCOSE METER 2019-01-31 12:42:00 TirukkovclaudiauriOrlylakshm i [facility] POCT-GLUCOSE METER 2019-01-31 08:33:00 [facility] LIPID PANEL 2019-01-31 05:45:00 Matt Camarillo [facility] BASIC METABOLIC PANEL (7) 2019-01-31 05:45:00 Ingris Randolph [facility] HEMOGLOBIN A1C 2019-01-31 04:45:00 [facility] TSH/FREE T4 IF INDICATED 2019-01-31 04:45:00 Matt Camarillo [facility] CBC W/PLT COUNT & AUTO DIFFERENTIAL 2019-01-31 04:45:00 Ingris Randolph [facility] POCT-GLUCOSE METER 2019-01-30 21:29:00 [facility] TROPONIN I 2019-01-30 20:41:00 Marquise [facility] ECG 12-LEAD 2019-01-30 20:32:43 Unknown, Hl7 [facility] POCT-GLUCOSE METER 2019-01-30 18:40:00 Octavia [facility] ECG 12-LEAD 2019-01-30 15:44:59 Marquise [facility] TROPONIN I 2019-01-30 15:21:00 Matt Camarillo [facility] POCT-GLUCOSE METER 2019-01-30 14:31:00 Octavia [facility] BASIC METABOLIC PANEL (7) 2019-01-30 10:30:00 Octavia [facility] MAGNESIUM 2019-01-30 10:30:00 Octavia [facility] B-TYPE NATRIURETIC FACTOR (BNP) 2019-01-30 10:30:00 [facility] TROPONIN I 2019-01-30 10:30:00 [facility] PT/APTT 2019-01-30 10:30:00 Octavia [facility] CBC W/PLT COUNT & AUTO DIFFERENTIAL 2019-01-30 10:30:00 Shay Dudley [facility] XR CHEST 2 VIEWS 2019-01-30 10:05:00 Octavia [facility] ECG 12-LEAD 2019-01-30 09:42:00 Unknown, H[facility]7 [facility] Plan of Care Planned Activity Planned Date Details Comments Source Future Scheduled Test 2012-09-06 04:19:02 Plan of Care [code = 1877 6-5] [facility] Instructions Sinusitis - Acute [facility] Instructions Sinusitis - Chronic [facility] Encounters Start Date/Time End Date/Time Encounter Type Admission Type Attendi [facility] Care Department Encounter ID Source 2020-01-21 09:44:30 2020-01-21 10:14:30 Office Visit Francisco Pearl [facility] [id number] 2019-12-31 10:04:00 2019-12-31 10:04:00 Registered Emergency Room 1 LILIBETH MARINA [facility] [id number] [facility] 2019-11-02 10:04:24 2019-11-02 10:24:24 Office Visit Delfino Sunshine i [facility] Bala [id number] 2019-09-25 22:03:00 2019-09-26 00:30:00 Departed Emergency Room 1 MELIA SCHULTZ [facility] [id number] [facility] 2019-07-01 17:54:00 2019-07-02 01:46:00 Departed Emergency Room 1 MICHAEL MALOU [facility] [id number] [facility] 2019-06-03 15:46:01 2019-06-03 15:56:01 Office Visit Mati Horta [facility] [id number] 2019-05-06 16:48:00 2019-05-06 19:10:00 Departed Emergency Room 1 TREVOR OLIVEIRA [facility] [id number] [facility] 2019-02-17 15:25:39 2019-02-17 16:44:34 Office Visit Francisco Pearl [facility] [id number] 2018-12-31 11:54:25 2018-12-31 12:48:48 Office Visit Francisco Pearl [facility] [id number] 2018-12-08 14:19:48 2018-12-08 15:04:06 Office Visit Francisco Pearl [facility] [id number] 2018-11-26 15:55:07 2018-11-26 16:05:07 Office Visit Mati Horta [facility] [id number] 2018-07-03 10:13:00 2018-07-03 15:31:00 Departed Emergency Room 1 ATUL ZUNIGA [facility] [id number] [facility] 2017-06-25 12:19:00 2017-06-25 16:19:00 Departed Emergency Room ER BRAD NEWMAN [facility] [id number] [facility] 2017-01-29 09:14:00 2017-01-29 09:14:00 Outpatient Sampson Ornelas [id number] [facility] 2017-01-22 18:46:00 2017-01-22 23:01:00 Departed Emergency Room ER FIONA LUNA [facility] [id number] [facility] 2016-10-30 15:23:00 2016-10-30 15:23:00 Registered Emergency Room [facility] [id number] [facility] 2012-09-09 02:38:02 2012-09-09 02:37:42 Outpatient KAITLYNNKAYLA JAMAL [id number] 2012-09-05 23:19:21 2012-09-05 23:19:02 Outpatient KAITLYNNKAYLA KAITLYNNKAYLA [id number] 2012-08-29 02:36:42 2012-08-29 02:36:24 Outpatient KAITLYNNKAYLA KAITLYNNKAYLA [id number] 2012-06-06 13:47:26 2012-06-06 13:47:25 Outpatient KAYLA BERRY [id number] 2012-05-08 18:41:15 2012-05-08 18:40:59 Outpatient KAYLA KAITLYNNKAYLA [id number] Results Test Description Test Time Test Comments Results Result Comments Source CT MAX FAC/PARANASAL W 2019-12-31 13:11:00 [place] [address] Patient Name: GHANSHYAM SCHROEDER MR #: [id number] : 1950 Age/Sex: 69/F Req #: [id number] Adm Physician: Ordered by: LILIBETH MARINA DO Report #: [id number] Location: ER Room/Bed: Procedure: [id number] CT/CT MAX FAC/PARANASAL W Exam Date: 12/31/19 Exam Time: 1245 REPORT STATUS: Signed EXAMINATION: CT of the face HISTORY: 69-year-old female with sinusitis, cough, sinus pressure, shortness of breath COMPARISON: Head CT 09/25/2019 TECHNIQUE: Multidetector helical axial images were acquired through the face with contrast. Intravenous contrast: 100 mL of Isovue-370 Dose modulation, iterative reconstruction, and/or weight based adjustment of the mA/kV was utilized to reduce the radiation dose to as low as reasonably achievable. FINDINGS: Bones: Unremarkable. Facial soft tissues: No mass or fluid collections. No abnormal enhancement.. Paranasal sinuses and drainage pathways: Minimal muc osal inflammatory thickening and small possible retention cyst in the right medial maxillary sinus wall. Otherwise the bilateral frontal, ethmoidal, sphenoid and maxillary sinuses are clear. The ostiomeatal units, fronto- nasal and spheno-ethmoidal recesses are clear. Orbits contents: Unremarkable. Nasal septum: Midline. Anatomic variations: No significant anatomic variations. Dentition: No acute abnormality of the visualized teeth. Incidental findings: -Partially visualized atherosclerotic calcification of the carotid bulbs with mild to moderate stenoses on the right side. -Partially visualized degenerative changes of cervical spine with moderate canal stenoses at C5-C6. IMPRESSION: 1. Minimal mucosal thickening of the right maxillary sinus, otherwise the paranasal sinuses-pathways are clear without evidence of sinusitis. 2. No mass or polyp in the nasal cavity. Signed by: Dr. Nancy Willams M.D. on 12/31/2019 1:18 PM Dictated By: NANCY WILLAMS MD [id number] Transcribed By: BRYANT on 12/31/19 1318 COPY TO: LILIBETH MARINA DO CT CHEST W 2019-12-31 13:01:00 [place] [address] Patient Name: GHANSHYAM SCHROEDER MR #: [id number] : 1950 Age/Sex: 69/F Req #: [id number] Adm Physician: Ordered by: LILIBETH MARINA DO Report #: [id number] Location: Room/Bed: Procedure: [id number] CT/CT CHEST W Exam Date: 12/31/19 Exam Time: 1245 REPORT STATUS: Signed EXAM: CT Chest WITH contrast- Pulmonary Embolism Protocol INDICATION: Shortness of breath COMPARISON: Chest radiograph 05/06/2019 TECHNIQUE: Chest was scanned utilizing a multidetector helical scanner from the lung apex through the level of the diaphragm after administration of IV contrast. Thin section reconstructions were obtained with special concentration on the pulmonary arteries. Coronal and sagittal reformations were obtained. Pulmonary embolism protocol was performed. IV CONTRAST: 100 cc of Isovue 370 RADIATION DOSE: Total DLP: 498 mGy*cm Dose modulation, iterative reconstruction, and/or weight based adjustment of the mA/kV was utilized to reduce the radiation dose to as low as reasonably achievable. COMPLICATIONS: None FINDINGS: LINES/ TUBES: None. PULMONARY ARTERIES: No filling defect is identified within the pulmonary arteries to the segmental level. The subsegmental pulmonary arteries are not well opacified. Main pulmonary artery measures 2.2 cm in diameter. LUNGS AND AIRWAYS: The central airways are patent. No focal consolidation or pulmonary edema. 3 mm right middle lobe pulmonary nodule (series 3 image 58). PLEURA: The pleural spaces are clear. HEART AND MEDIASTINUM: The thyroid gland is normal. No mediastinal, hilar or axillary lymphadenopathy. The heart is normal in size.. There is no pericardial effusion. UPPER ABDOMEN: Status post cholecystectomy. No acute findings in the upper abdomen. BONES: The visualized bony thorax is within normal limits. SOFT TISSUES: Unremarkable. IMPRESSION: No pulmonary embolism. No focal pneumonia or pulmonary edema. 3mm right middle lobe pulmonary nodule. If the patient is low risk, no follow-up imaging is necessary. If the patient is high risk, chest CT at 12 months is optional. Signed by: Ronnie Coulter MD on 12/31/2019 1:08 PM Dictated By: RONNIE COULTER MD 1308 Transcribed By: BRYANT on 12/31/19 1308 COPY TO: LILIBTEH MARINA DO Blood leukocytes automated count (number/volume) 2019-12-31 11:00:00 Test Item White Blood Count (test code = 6690-2) 8.67 4.8-10.8 [facility] erythrocytes automated count (number/volume)2019-12-31 11:00:00* Test Item Value Reference Range Interpretation Comments Red Blood Count (test code = 789-8) 5.56 3.6-5.1 [facility] hemoglobin measurement (moles/volume)2019-12-31 11:00:00* Test Item Value Reference Range Interpretation Comments Hemoglobin (test code = 63425-0) 13.3 12.0-16.0 [facility] DistrictAutom[facility] blood hematocrit (volume fraction)2019-12-31 11:00:00* Test Item Value Reference Range Interpretation Comments Hematocrit (test code = 4544-3) 43.9 34.2-44.1 [facility] DistrictAutom[facility] erythrocyte mean corpuscular reebyb5044-68-52 11:00:00* Test Item Value Reference Range Interpretation Comments Mean Corpuscular Volume (test code = 787-2) 79.0 81-99 [facility] DistrictAutom[facility] erythrocyte mean corpuscular hemoglobin (mass per erythrocyte)2019-12-31 11:00:00* Test Item Value Reference Range Interpretation Comments Mean Corpuscular Hemoglobin (test code = 785-6) 23.9 28-32 [facility] DistrictAutom[facility] erythrocyte mean corpuscular hemoglobin concentration measurement (mass/volume)2019-12-31 11:00:00* Test Item Value Reference Range Interpretation Comments Mean Corpuscular Hemoglobin Concent (test code = 786-4) 30.3 31-35 [facility] DistrictRDW NuhMe-Dzg0403-07-10 11:00:00* Test Item Value Reference Range Interpretation Comments Red Cell Distribution Width (test code = 54583-4) 15.7 11.7 -14.4 [facility] DistrictAutom[facility] blood platelet count (count/volume)2019-12-31 11:00:00* Test Item Value Reference Range Interpretation Comments Platelet Count (test code = 777-3) 241 140-360 [facility] DistrictAutformerly [facility]ed [facility] segmented neutrophil count as percentage of total slxllppvzb2674-32-29 11:00:00* Test Item Value Reference Range Interpretation Comments Neutrophils (%) (Auto) (test code = 72541-5) 62.7 38.7-80.0 [facility] DistrictAutomated blood lymphocyte count as percentage ot total mjsvznulxr6025-24-46 11:00:00* Test Item Value Reference Range Interpretation Comments Lymphocytes (%) (Auto) (test code = 736-9) 24.9 18.0-39.1 [facility] DistrictAutom[facility] blood monocyte count as percentage of total eixhqqxgmn5836-17-72 11:00:00* Test Item Value Reference Range Interpretation Comments Monocytes (%) (Auto) (test code = 5905-5) 7.6 4.4-11.3 [facility] DistrictAutom[facility] blood eosinophil count as percentage of total vaczgvzzmk9995-24-42 11:00:00* Test Item Value Reference Range Interpretation Comments Eosinophils (%) (Auto) (test code = 713-8) 4.0 0.0-6.0 [facility] DistrictAutom[facility] blood basophil count as percentage of total qyckjrlkrp0921-95-22 11:00:00* Test Item Value Reference Range Interpretation Comments Basophils (%) (Auto) (test code = 706-2) 0.3 0.0-1.0 [facility] DistrictFluoroscopic procedure less than one hour hzrfgxjs2633-99-62 11:00:00* Test Item Value Reference Range Interpretation Comments IM GRANULOCYTES % (test code = IM GRANULOCYTES %) 0.5 0.0- 1.0 [facility] DistrictAutom[facility] blood neutrophil count 2019-12-31 11:00:00* Test Item Value Reference Range Interpretation Comments Neutrophils # (Auto) (test code = 751-8) 5.4 2.1-6.9 [facility] DistrictBlood lymphocytes count (number/volume) 2019-12-31 11:00:00* Test Item Value Reference Range Interpretation Comments Lymphocytes # (Auto) (test code = 82079-3) 2.2 1.0-3.2 [facility] monocytes automated count (number/volume)2019-12-31 11:00:00* Test Item Value Reference Range Interpretation Comments Monocytes # (Auto) (test code = 742-7) 0.7 0.2-0.8 [facility] DistrictAutom[facility] blood eosinophil count 2019-12-31 11:00:00* Test Item Value Reference Range Interpretation Comments Eosinophils # (Auto) (test code = 711-2) 0.4 0.0-0.4 [facility] DistrictAutom[facility] blood basophil count (count/volume)2019-12-31 11:00:00* Test Item Value Reference Range Interpretation Comments Basophils # (Auto) (test code = 704-7) 0.0 0.0-0.1 [facility] DistrictFluoroscopic procedure less than one hour dtphokzj4455-62-31 11:00:00* Test Item Value Reference Range Interpretation Comments Absolute Immature Granulocyte (auto (corey t code = Absolute Immature Granulocyte (auto) 0.04 0-0.1 [facility] DistrictProthrombin time (PT) in platelet poor plasma by coagulation wsavf4513-59-71 11:00:00* Test Item Value Reference Range Interpretation Comments Prothrombin Time (test code = 5902-2) 11.7 11.9-14.5 [facility] DistrictINR in Platelet poor plasma by Coagulation lnbyq1398-23-14 11:00:00* Test Item Value Reference Range Interpretation Comments Prothromb Time International Ratio (test code = 6301-6) 0.82 Oral Anticoagulant Therapy INR Values:1. Low Intensity Therapy 1.5 - 2.02 . Moderate Intensity Therapy 2.0 - 3.03. High Intensity Therapy(1) 2.5 - 3. 54. High Intensity Therapy(2) 3.0 - 4.05. Panic Value INR > 5.0 [facility] sodium measurement (moles/volume)2019-12-31 11:00:00* Test Item Value Reference Range Interpretation Comments Sodium Level (test code = 2951-2) 143 136-145 [facility] potassium measurement (moles/volume)2019-12-31 11:00:00* Test Item Value Reference Range Interpretation Comments Potassium Level (test code = 2823-3) 4.1 3.5-5.1 [facility] chloride measurement (moles/volume)2019-12-31 11:00:00* Test Item Value Reference Range Interpretation Comments Chloride Level (test code = 2075-0) 108 98-107 [facility] or plasma carbon dioxide, total measurement (moles/volume)2019-12-31 11:00:00* Test Item Value Reference Range Interpretation Comments Carbon Dioxide Level (test code = 2028-9) 20 22-29 [facility] or plasma anion ojm1346-18-67 11:00:00* Test Item Value Reference Range Interpretation Comments Anion Gap (test code = 20238-8) 19.1 8-16 [facility] plasma urea nitrogen measurement (mass/volume)2019-12-31 11:00:00* Test Item Value Reference Range Interpretation Comments Blood Urea Nitrogen (test code = 3094-0) 17 7-26 [facility] or plasma creatinine measurement (mass/volume)2019-12-31 11:00:00* Test Item Value Reference Range Interpretation Comments Creatinine (test code = 2160-0) 1.04 0.57-1.11 [facility]ererum or plasma urea nitrogen/creatinine mass libxs7313-77-78 11:00:00* Test Item Value Reference Range Interpretation Comments BUN/Creatinine Ratio (test code = 3097-3) 16 6-25 [facility] DistrictEstimated glomerular filtration rate (GFR) lhovikgfdpyxh0287-77-39 11:00:00* Test Item Value Reference Range Interpretation Comments Estimat Glomerular Filtration Rate (test code = 705063838) > 60 >60 Ranges were taken from the National Kidney Disease Education Program and the [facility] [employer] literature.Reference ranges:60 or greater: Ofvgpo72-57 ( for 3 consecutive months): Chronic kidney disease 15 or less: Kidney failureBallinger Memorial Hospital DistrictGlucose rvjcfzijclt8794-92-59 11:00:00* Test Item Value Reference Range Interpretation Comments Glucose Level (test code = PKP9647) 135 74-118 [facility] or plasma calcium measurement (mass/volume)2019-12-31 11:00:00* Test Item Value Reference Range Interpretation Comments Calcium Level (test code = 40056-9) 9.1 8.4-10.2 [facility]ererum or plasma total bilirubin measurement (mass/volume)2019-12-31 11:00:00* Test Item Value Reference Range Interpretation Comments Total Bilirubin (test code = 1975-2) 0.3 0.2-1.2 [facility] DistrictFluoroscopic procedure less than one hour qbvpomvz1623-97-37 11:00:00* Test Item Value Reference Range Interpretation Comments Aspartate Amino Transf (AST/SGOT) (test code = Aspartate Amino Transf (AST/SGOT)) 15 5-34 [facility]ererum or plasma alanine aminotransferase measurement (enzymatic activity/volume)2019-12-31 11:00:00* Test Item Value Reference Range Interpretation Comments Alanine Aminotransferase (ALT/SGPT) (test code = 1742-6) 15 0-55 [facility]ererum or plasma protein measurement (mass/volume)2019-12-31 11:00:00* Test Item Value Reference Range Interpretation Comments Total Protein (test code = 2885-2) 7.7 6.5-8.1 [facility]ererum or plasma albumin measurement (mass/volume)2019-12-31 11:00:00* Test Item Value Reference Range Interpretation Comments Albumin (test code = 1751-7) 4.4 3.5-5.0 [facility] DistrictPlasma globulin measurement (mass/volume) 2019-12-31 11:00:00* Test Item Value Reference Range Interpretation Comments Globulin (test code = 66095-6) 3.3 2.3-3.5 [facility]ere[facility] or plasma albumin/globulin mass noalx8245-83-55 11:00:00* Test Item Value Reference Range Interpretation Comments Albumin/Globulin Ratio (test code = 1759-0) 1.3 0.8-2.0 [facility]ererum or plasma alkaline phosphatase measurement (enzymatic activity/volume)2019-12-31 11:00:00* Test Item Value Reference Range Interpretation Comments Alkaline Phosphatase (test code = 6768-6) 88 40-150 [facility] DistrictCT CERVICAL SPINE [id number] 23:07:00 [facility] [address] [place] [address] Patient Name: GHANSHYAM SCHROEDER MR #: [id number] : 1950 Age/Sex: 69/F Req #: [id number] Adm Physician: Ordered by: MELIA SCHULTZ MD Report #: [id number] Location: ER Room/Bed: Procedure: [id number] CT/C T CERVICAL SPINE WO Exam Date: 09/25/19 Exam Time: 2 247 REPORT STATUS: Signed Histor y: Headache and left-sided neck pain. Comparison studies: None Techniq ue: Axial images were obtained through the cervical region.. Coronal and sa gittal images reconstructed from the axial data. Dose modulation, iterative re construction, and/or weight based adjustment of the mA/kV was utilized to redu ce the radiation dose to as low as reasonably achievable. Intravenous con trast: None Findings: Fractures: None. Soft tissue injuries: None. Atlantoaxial articulation: Intact. Alignment: Loss of normal cervical lord osis is either positional or due to muscle spasm. No scoliosis. No subluxation . Cervicomedullary junction: No abnormalities. The foramen magnum is patent. Soft tissues: No abnormalities. Vertebrae: Chronic fracture deformity of the tip of spinous process of C6 and C7 with well-corticated margins, possi adriana a sequelae of prior trauma. No acute fracture infection or neoplasm. Degenerative changes: C5-C6: Moderate degenerative disc disease. Posterio r disc osteophyte complex without significant canal stenosis. No significant f oraminal stenosis.. IMPRESSION: 1. No acute cervical spine fracture o r dislocation. Loss of normal cervical lordosis is either positional or due to muscle spasm. 2. Ligament, spinal cord and or vascular abnormalities mary ot be excluded on the basis of this examination. Signed by: Dr. Murali M.D. on 09/25/2019 11:11 PM Dictated By: SAL AMATO MD 10 Transcribed By: Carlton GALLARDO on 09/25/192310 COPY TO: MELIA SCHULTZ MD CT BRAIN [id number] 23:01:00 [place] [address] Patient Name: GHANSHYAM SCHROEDER MR #: [id number] : 1950 Age/Sex: 69/F Req #: [id number] Adm Physician: Ordered by: MELIA SCHULTZ MD Report #: [id number] Location: ER Room/Bed: Procedure: [id number] CT/C T BRAIN WO Exam Date: 09/25/19 Exam Time: 2246 REPORT STATUS: Signed EXAMINATION: He ad CT without contrast. HISTORY:Severe headache. COMPARISON:CT b rain from 07/01/2019. TECHNIQUE: Multidetector axial images were obtained f rom the foramen magnum to the vertex without contrast. The images were reconst ructed using brain and bone algorithms. Thin section brain images were reform atted into coronal and sagittal planes. Dose modulation, iterative reconstru ction, and/or weight based adjustment of the mA/kV was utilized to reduce the radiation dose to as low as reasonably achievable. Intravenous contrast: None IMAGE QUALITY: Acceptable. FINDINGS: Skull/scalp: No lyti c or blastic. lesions. No surgical changes. Parenchyma: Unchanged chronic lacunar infarct in right caudate head. No acute hemorrhage, mass or acute priti or vascular territorial infarct. Arteries: No density suggestive of thromb osis. Dural sinuses: No abnormal density suggestive of thrombosis. Ventricles: No hydrocephalus or displacement. Extra-axial spaces: No ab normal density. Brain volume: Normal for age. Craniocervical junct ion: No mass, Chiari malformation, or basilar invagination. Sella: No ma ss. Paranasal/mastoid sinuses: Mild mucosal thickening in left sphenoid s inus with bubbly secretions. IMPRESSION: No acute intracranial abnor mality. No change since CT brain from 07/01/2019. Persistent findings: C hronic lacunar infarct in right caudate head. Signed by: Dr. Sal foster M.D. on 09/25/2019 11:06 PM Dictated By: SAL AMATO MD [facility] Signed By: SAL AMATO MD on 09/25/192305 Transcribed By: BRYANT on 09/25/192305 COPY TO: MELIA SCHULTZ MD ANKLE 3+ VIEWS [id number] 01:43:00 [place] [address] Patient Name: GHANSHYAM SCHROEDER MR #: [id number] : 1950 Age/Sex: 68/F Req #: [id number] Adm Physician: Ordered by: LILIBETH MARINA DO Report #: [id number] Location: ER Room/Bed: Procedure: [id number] D X/ANKLE 3+ VIEWS LEFT Exam Date: 07/02/19 Exam Time: 0104 REPORT STATUS: Signed Exam: Left ankle radiographs-3 views History: Fall. Comparison: None. Findings/Impression: No evidence of acute fracture or malalignment. Well-cor ticated bony fragment adjacent to the medial malleolus, suggestive of remote t rauma. The ankle mortise is preserved. Soft tissue edema within the ankle, mos t pronounced laterally. Plantar calcaneal spur. Signed by: Dr. Keyona Montoya MD on 07/02/2019 1:45 AM Dictated By: KEYONA MONTOYA MD Electronically Sign ed By: KEYONA MONTOYA MD on 07/02/19144 Transcribed By: BRYANT on 07/02/19144 COPY TO: LILIBETH MARINA DO HIP LEFT 2-3 VW (+/- PELVIS) 2019-07-01 23:44:00 [place] [address] Patient Name: GHANSHYAM SCHROEDER MR #: [id number] : 1950 Age/Sex: 68/F Req #: [id number] Adm Physician: Ordered by: LILIBETH MARINA DO Report #: [id number] Location: ER Room/Bed: Procedure: [id number] D X/HIP LEFT 2-3 VW (+/- PELVIS) Exam Date: Exam Time : REPORT STATUS: Signed Exam: A P radiograph of the pelvis-1 view; left hip radiographs-2 views; left knee rad iographs-3 views; left foot radiographs-3 views Clinical History: Fell in t ub. Comparison: None. Findings: There is mild widening between the bases of the first and second metatarsal, measuring up to 3 mm. Mild offset be tween the base of the first metatarsal and medial cuneiform. There is soft tis ling edema throughout the foot and hindfoot, most pronounced medially. Possible irregularity at the medial malleolus with surrounding soft tissue edema in the ankle. Mild degenerative changes of bilateral hips. Mild degenerative spring nges in the medial and patellofemoral compartments of the left knee. No suprap atellar joint effusion. Impression: Findings suggestive of age indeterm inant Lisfranc ligamentous injury without associated fracture demonstrated. So ft tissue edema in the foot. Suggest clinical correlation. Possible irreg ularity in the medial malleolus with surrounding soft tissue edema. Recommend ankle radiographs for further evaluation. No acute osseous abnormality in t he pelvis, left hip, or left knee. Signed by: Dr. Keyona Montoya MD on 07/01/19 11:53 PM Dictated By: KEYONA MONTOYA MD 52 Transcribed By: BRYANT on 07/01/192352 COPY TO: LILIBETH MARINA DO FOOT LEFT [id number] 23:44:00 [place] [address] Patient Name: GHANSHYAM SCHROEDER MR #: [id number] : 1950 Age/Sex: 68/F Req #: [id number] Adm Physician: Ordered by: LILIBETH MARINA DO Report #: [id number] Location: ER Room/Bed: Procedure: [id number] D X/FOOT LEFT COMPLETE Exam Date: 07/01/19 Exam Time: 230 REPORT STATUS: Signed Exam: AP radiograph of the pelvis-1 view; left hip radiographs-2 views; left knee r adiographs-3 views; left foot radiographs-3 views Clinical History: Fell in tub. Comparison: None. Findings: There is mild widening between the bases of the first and second metatarsal, measuring up to 3 mm. Mild offset between the base of the first metatarsal and medial cuneiform. There is soft t issue edema throughout the foot and hindfoot, most pronounced medially. Possib le irregularity at the medial malleolus with surrounding soft tissue edema in the ankle. Mild degenerative changes of bilateral hips. Mild degenerative c hanges in the medial and patellofemoral compartments of the left knee. No supr apatellar joint effusion. Impression: Findings suggestive of age indete rminant Lisfranc ligamentous injury without associated fracture demonstrated. Soft tissue edema in the foot. Suggest clinical correlation. Possible irr egularity in the medial malleolus with surrounding soft tissue edema. Recommen d ankle radiographs for further evaluation. No acute osseous abnormality in the pelvis, left hip, or left knee. Signed by: Dr. Keyona Montoya MD on 2019 11:53 PM Dictated By: KEYONA MONTOYA MD 52 Transcribed By: BRYANT on 07/01/192352 COPY T O: LILIBETH MARINA DO KNEE LEFT THREE [id number] 23:44:00 [place] [address] Patient Name: GHANSHYAM SCHROEDER MR #: [id number] : 1950 Age/Sex: 68/F Req #: [id number] Adm Physician: Ordered by: LILIBETH MARINA DO Report #: [id number] Location: ER Room/Bed: Procedure: [id number] D X/KNEE LEFT THREE VIEWS Exam Date: 07/01/19 Exam Gage e: 9330 REPORT STATUS: Signed Ex am: AP radiograph of the pelvis-1 view; left hip radiographs-2 views; left kne e radiographs-3 views; left foot radiographs-3 views Clinical History: Fell in tub. Comparison: None. Findings: There is mild widening between the bases of the first and second metatarsal, measuring up to 3 mm. Mild offs et between the base of the first metatarsal and medial cuneiform. There is sof t tissue edema throughout the foot and hindfoot, most pronounced medially. Pos sible irregularity at the medial malleolus with surrounding soft tissue edema in the ankle. Mild degenerative changes of bilateral hips. Mild degenerativ e changes in the medial and patellofemoral compartments of the left knee. No s uprapatellar joint effusion. Impression: Findings suggestive of age ind eterminant Lisfranc ligamentous injury without associated fracture demonstrate d. Soft tissue edema in the foot. Suggest clinical correlation. Possible irregularity in the medial malleolus with surrounding soft tissue edema. Recom mend ankle radiographs for further evaluation. No acute osseous abnormality in the pelvis, left hip, or left knee. Signed by: Dr. Keyona Montoya MD on 02/2020 11:53 PM Dictated By: KEYONA MONTOYA MD 52 Transcribed By: BRYANT on 07/01/192352 [employer] Y TO: LILIBETH MARINA DO CT BRAIN [id number] 19:35:00 [place] [address] Patient Name: GHANSHYAM SCHROEDER MR #: [id number] : 1950 Age/Sex: 68/F Req #: [id number] Adm Physician: Ordered by: MALOU RODRIGUEZ MD Report #: [id number] Location: ER Room/Bed: Procedure: [id number] CT/C T BRAIN WO Exam Date: 07/01/19 Exam Time: 1920 REPORT STATUS: Signed CT BRAIN WO HISTORY: Trauma COMPARISON: Head CT 06/25/2017 TECHNIQUE: CT of the head was performed without the administration of intravenous contrast. Coron al/sagittal reformations were created. One or more of the following dose redu ction techniques were used: Automated exposure control, adjustment of the mA a nd/or kV according to patient size, and/or utilization of iterative reconstruc tion technique. DISCUSSION: Scalp/Skull: No abnormalities. Brain sul ci: Appropriate for patient's age. Ventricles: Normal in size and configuratio n. No hydrocephalus. Extra-axial spaces: No masses or fluid collections. Mild carotid siphon calcifications are present. Parenchyma: There is an old right caudate head lacunar infarct. No mass, hemorrhage, or large vascular t erritory acute infarct. Dural sinuses: No abnormal densities. Sellar/Sup rasellar region: Intact. Skull base: Intact. Incidental findings: Mild opac ification of the left posterior ethmoid air cells and left sphenoid sinus. IMPRESSION: 1. No acute intracranial abnormalities. 2. 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 Signed by: Dr. Chuy Rowe M.D. on 07/01/2019 7:38 PM Dictated By: CHUY ROWE MD 37 Transcribed By: BRYANT on 07/01/191937 COPY TO: MALOU RODRIGUEZ MD Sodium [id number] 20:03:00* Test Item Value Reference Range Interpretation Comments Sodium Level (test code = 2951-2) 144 136-145 [facility]Pot[facility] Rnlcc6441-01-49 20:03:00* Test Item Value Reference Range Interpretation Comments Potassium Level (test code = 2823-3) 3.5 3.5-5.1 [facility] DistrictChloride Fvzqm1827-87-85 20:03:00* Test Item Value Reference Range Interpretation Comments Chloride Level (test code = 2075-0) 104 98-107 [facility] DistrictCarbon Dioxide Jbcna6286-23-27 20:03:00* Test Item Value Reference Range Interpretation Comments Carbon Dioxide Level (test code = 2028-9) 29 22-29 [facility] DistrictAnion Ias8225-57-53 20:03:00* Test Item Value Reference Range Interpretation Comments Anion Gap (test code = 80321-8) 14.5 8-16 [facility] DistrictBlood Urea Awzgjdwu7377-94-26 20:03:00* Test Item Value Reference Range Interpretation Comments Blood Urea Nitrogen (test code = 3094-0) 11 7-26 [facility] DistrictCreatinine2020-01-15 20:03:00* Test Item Value Reference Range Interpretation Comments Creatinine (test code = 2160-0) 0.98 0.57-1.11 [facility] DistrictBUN/Creatinine Cilkw2594-72-04 20:03:00* Test Item Value Reference Range Interpretation Comments BUN/Creatinine Ratio (test code = 3097-3) 11 6- [facility] DistrictEstimat Glomerular Filtration Rate 2019-05-06 20:03:00* Test Item Value Reference Range Interpretation Comments Estimat Glomerular Filtration Rate (test code = 600892112) > 60 >60 Ranges were taken from the National Kidney Disease Education Program and the [facility] literature.Reference ranges:60 or greater: Cyxauc95-64 ( for 3 consecutive months): Chronic kidney disease 15 or less: Kidney failureBallinger [facility] Hospital DistrictGlucose Iebyf5738-18-26 20:03:00* Test Item Value Reference Range Interpretation Comments Glucose Level (test code = ICI0875) 183 74-118 H [facility] DistrictCalcium Omzyx6572-68-54 20:03:00* Test Item Value Reference Range Interpretation Comments Calcium Level (test code = 67691-1) 9.2 8.4-10.2 [facility] DistrictTotal Yhzhlkzzg6665-70-69 20:03:00* Test Item Value Reference Range Interpretation Comments Total Bilirubin (test code = 1975-2) 0.3 0.2-1.2 [facility] DistrictAspartate Amino Transf (AST/SGOT) 2019-05-06 20:03:00* Test Item Value Reference Range Interpretation Comments Aspartate Amino Transf (AST/SGOT) (test code = Aspartate Amino Transf (AST/SGOT)) 28 5-34 [facility] DistrictAlanine Aminotransferase (ALT/SGPT) 2019-05-06 20:03:00* Test Item Value Reference Range Interpretation Comments Alanine Aminotransferase (ALT/SGPT) (test code = 1742-6) 33 0-55 [facility] DistrictTotal Lrqhfwj5515-41-56 20:03:00* Test Item Value Reference Range Interpretation Comments Total Protein (test code = 2885-2) 7.3 6.5-8.1 [facility] DistrictAlbumin2020-01-15 20:03:00* Test Item Value Reference Range Interpretation Comments Albumin (test code = 1751-7) 3.6 3.5-5.0 [facility] DistrictGlobulin2020-01-15 20:03:00* Test Item Value Reference Range Interpretation Comments Globulin (test code = 04573-1) 3.7 2.3-3.5 H [facility] DistrictAlbumin/Globulin Bokyp1164-04-15 20:03:00 * Test Item Value Reference Range Interpretation Comments Albumin/Globulin Ratio (test code = 1759-0) 1.0 0.8-2.0 [facility] DistrictAlkaline Omateqstbpo3802-92-68 20:03:00* Test Item Value Reference Range Interpretation Comments Alkaline Phosphatase (test code = 6768-6) 69 40-150 [facility] DistrictB-Type Natriuretic Wemsyxp3248-18-00 20:03:00* Test Item Value Reference Range Interpretation Comments B-Type Natriuretic Peptide (test code = 46804-9) 16.9 0-100 [facility] DistrictCreatine Rnyrqn3110-52-61 20:03:00* Test Item Value Reference Range Interpretation Comments Creatine Kinase (test code = 2157-6) 187 29-168 H [facility] DistrictCreatine Kinase KQ7046-00-07 20:03:00* Test Item Value Reference Range Interpretation Comments Creatine Kinase MB (test code = 49290-5) 2.60 0-5.0 [facility] DistrictTroponin W4798-63-44 20:03:00* Test Item Value Reference Range Interpretation Comments Troponin I (test code = AAG5336) < 0.001 0-0.300 [facility]odium Wfyyb2397-31-15 20:03:00* Test Item Value Reference Range Interpretation Comments Sodium Level (test code = 2951-2) 144 136-145 [facility] DistrictPotassium Thjxv6782-75-37 20:03:00* Test Item Value Reference Range Interpretation Comments Potassium Level (test code = 2823-3) 3.5 3.5-5.1 [facility] DistrictChloride Fshtl4604-07-62 20:03:00* Test Item Value Reference Range Interpretation Comments Chloride Level (test code = 2075-0) 104 98-107 [facility] DistrictCarbon Dioxide Xktvh7354-13-23 20:03:00* Test Item Value Reference Range Interpretation Comments Carbon Dioxide Level (test code = 2028-9) 29 22-29 [facility] DistrictAnion Tvr1102-08-95 20:03:00* Test Item Value Reference Range Interpretation Comments Anion Gap (test code = 71231-6) 14.5 8-16 [facility] DistrictBlood Urea Bxvazrvu4017-76-77 20:03:00* Test Item Value Reference Range Interpretation Comments Blood Urea Nitrogen (test code = 3094-0) 11 7-26 [facility] DistrictCreatinine2020-01-15 20:03:00* Test Item Value Reference Range Interpretation Comments Creatinine (test code = 2160-0) 0.98 0.57-1.11 [facility] DistrictBUN/Creatinine Tbulr5634-88-44 20:03:00* Test Item Value Reference Range Interpretation Comments BUN/Creatinine Ratio (test code = 3097-3) 11 6-25 [facility] DistrictEstimat Glomerular Filtration Rate 2019-05-06 20:03:00* Test Item Value Reference Range Interpretation Comments Estimat Glomerular Filtration Rate (test code = 230703453) > 60 >60 Ranges were taken from the National Kidney Disease Education Program and the [place] literature.Reference ranges:60 or greater: Psocro54-15 ( for 3 consecutive months): Chronic kidney disease 15 or less: Kidney failureBallinger Memorial Hospital DistrictGlucose Mtwlv5342-17-68 20:03:00* Test Item Value Reference Range Interpretation Comments Glucose Level (test code = VBU2538) 183 74-118 H [facility] DistrictCalcium Jtuvo2738-78-15 20:03:00* Test Item Value Reference Range Interpretation Comments Calcium Level (test code = 34251-6) 9.2 8.4-10.2 [facility] DistrictTotal Kymxjekwo9892-99-87 20:03:00* Test Item Value Reference Range Interpretation Comments Total Bilirubin (test code = 1975-2) 0.3 0.2-1.2 [facility] DistrictAspartate Amino Transf (AST/SGOT) 2019-05-06 20:03:00* Test Item Value Reference Range Interpretation Comments Aspartate Amino Transf (AST/SGOT) (test code = Aspartate Amino Transf (AST/SGOT)) 28 5-34 [facility] DistrictAlanine Aminotransferase (ALT/SGPT) 2019-05-06 20:03:00* Test Item Value Reference Range Interpretation Comments Alanine Aminotransferase (ALT/SGPT) (test code = 1742-6) 33 0-55 [facility] DistrictTotal Izdzlut3696-64-78 20:03:00* Test Item Value Reference Range Interpretation Comments Total Protein (test code = 2885-2) 7.3 6.5-8.1 [facility] DistrictAlbumin2020-01-15 20:03:00* Test Item Value Reference Range Interpretation Comments Albumin (test code = 1751-7) 3.6 3.5-5.0 [facility] DistrictGlobulin2020-01-15 20:03:00* Test Item Value Reference Range Interpretation Comments Globulin (test code = 50869-1) 3.7 2.3-3.5 H [facility] DistrictAlbumin/Globulin Tzcjx5038-14-55 20:03:00 * Test Item Value Reference Range Interpretation Comments Albumin/Globulin Ratio (test code = 1759-0) 1.0 0.8-2.0 [facility] DistrictAlkaline Bplhpaujikg2960-52-79 20:03:00* Test Item Value Reference Range Interpretation Comments Alkaline Phosphatase (test code = 6768-6) 69 40-150 [facility] DistrictB-Type Natriuretic Znhsgrx0424-85-58 20:03:00* Test Item Value Reference Range Interpretation Comments B-Type Natriuretic Peptide (test code = 53895-7) 16.9 0-100 [facility] DistrictCreatine Pepnoq3880-42-73 20:03:00* Test Item Value Reference Range Interpretation Comments Creatine Kinase (test code = 2157-6) 187 29-168 H [facility] DistrictCreatine Kinase LS3825-96-37 20:03:00* Test Item Value Reference Range Interpretation Comments Creatine Kinase MB (test code = 89835-3) 2.60 0-5.0 [facility] DistrictTroponin B1212-97-28 20:03:00* Test Item Value Reference Range Interpretation Comments Troponin I (test code = KVD8951) < 0.001 0-0.300 [facility] DistrictInfluenza Virus Types A,B Antigen 2019-05-06 19:46:00* Test Item Value Reference Range Interpretation Comments Influenza Virus Types A,B Antigen (test code = 31196-9) NEGATIVE NEGATIVE [facility] DistrictInfluenza Virus Types A,B Antigen 2019-05-06 19:46:00* Test Item Value Reference Range Interpretation Comments Influenza Virus Types A,B Antigen (test code = 26381-3) NEGATIVE NEGATIVE [facility] DistrictProthrombin Qfsf5220-05-97 19:34:00* Test Item Value Reference Range Interpretation Comments Prothrombin Time (test code = 5902-2) 11.8 11.9-14.5 L [facility] DistrictProthromb Time International Ratio 2019-05-06 19:34:00* Test Item Value Reference Range Interpretation Comments Prothromb Time International Ratio (test code = 6301-6) 0.82 Oral Anticoagulant Therapy INR Values:1. Low Intensity Therapy 1.5 - 2.02 . Moderate Intensity Therapy 2.0 - 3.03. High Intensity Therapy(1) 2.5 - 3. 54. High Intensity Therapy(2) 3.0 - 4.05. Panic Value INR > 5.0 [facility] DistrictActivated Partial Thromboplast Time 2019-05-06 19:34:00* Test Item Value Reference Range Interpretation Comments Activated Partial Thromboplast Time (test code = 51072-3) 26.3 23.8-35.5 [facility] DistrictProthrombin Hsnk1583-26-46 19:34:00* Test Item Value Reference Range Interpretation Comments Prothrombin Time (test code = 5902-2) 11.8 11.9-14.5 L [facility] DistrictProthromb Time International Ratio 2019-05-06 19:34:00* Test Item Value Reference Range Interpretation Comments Prothromb Time International Ratio (test code = 6301-6) 0.82 Oral Anticoagulant Therapy INR Values:1. Low Intensity Therapy 1.5 - 2.02 . Moderate Intensity Therapy 2.0 - 3.03. High Intensity Therapy(1) 2.5 - 3. 54. High Intensity Therapy(2) 3.0 - 4.05. Panic Value INR > 5.0 [facility] DistrictActivated Partial Thromboplast Time 2019-05-06 19:34:00* Test Item Value Reference Range Interpretation Comments Activated Partial Thromboplast Time (test code = 22260-9) 26.3 23.8-35.5 [facility] DistrictWhite Blood Bymkq2828-94-19 19:27:00* Test Item Value Reference Range Interpretation Comments White Blood Count (test code = 6690-2) 6.17 4.8-10.8 [facility] DistrictRed Blood Cprdm1574-99-26 19:27:00* Test Item Value Reference Range Interpretation Comments Red Blood Count (test code = 789-8) 5.34 3.6-5.1 H [facility] DistrictHemoglobin2020-01-15 19:27:00* Test Item Value Reference Range Interpretation Comments Hemoglobin (test code = 74619-1) 12.9 12.0-16.0 [facility] DistrictHematocrit2020-01-15 19:27:00* Test Item Value Reference Range Interpretation Comments Hematocrit (test code = 4544-3) 42.1 34.2-44.1 [facility] DistrictMean Corpuscular Kgfhyi7611-45-40 19:27:00* Test Item Value Reference Range Interpretation Comments Mean Corpuscular Volume (test code = 787-2) 78.8 81-99 L [facility] DistrictMean Corpuscular Kcyfepuhfo2778-64-73 19:27:00* Test Item Value Reference Range Interpretation Comments Mean Corpuscular Hemoglobin (test code = 785-6) 24.2 28-32 L [facility] DistrictMean Corpuscular Hemoglobin Concent 2019-05-06 19:27:00* Test Item Value Reference Range Interpretation Comments Mean Corpuscular Hemoglobin Concent (test code = 786-4) 30.6 31-35 L [facility] DistrictRed Cell Distribution Nbntx0737-79-40 19:27:00* Test Item Value Reference Range Interpretation Comments Red Cell Distribution Width (test code = 29049-9) 14.8 11.7 -14.4 H [facility] DistrictPlatelet Ksmxb9502-16-25 19:27:00* Test Item Value Reference Range Interpretation Comments Platelet Count (test code = 777-3) 276 140-360 [facility] DistrictNeutrophils (%) (Auto)2019-05-06 19:27:00 * Test Item Value Reference Range Interpretation Comments Neutrophils (%) (Auto) (test code = 85354-7) 50.5 38.7-80.0 [facility] DistrictLymphocytes (%) (Auto)2019-05-06 19:27:00 * Test Item Value Reference Range Interpretation Comments Lymphocytes (%) (Auto) (test code = 736-9) 37.1 18.0-39.1 [facility] DistrictMonocytes (%) (Auto)2019-05-06 19:27:00* Test Item Value Reference Range Interpretation Comments Monocytes (%) (Auto) (test code = 5905-5) 7.9 4.4-11.3 [facility] DistrictEosinophils (%) (Auto)2019-05-06 19:27:00 * Test Item Value Reference Range Interpretation Comments Eosinophils (%) (Auto) (test code = 713-8) 3.7 0.0-6.0 [facility] DistrictBasophils (%) (Auto)2019-05-06 19:27:00* Test Item Value Reference Range Interpretation Comments Basophils (%) (Auto) (test code = 706-2) 0.5 0.0-1.0 [facility] DistrictIM GRANULOCYTES %2019-05-06 19:27:00* Test Item Value Reference Range Interpretation Comments IM GRANULOCYTES % (test code = IM GRANULOCYTES %) 0.3 0.0- 1.0 [facility] DistrictNeutrophils # (Auto)2019-05-06 19:27:00* Test Item Value Reference Range Interpretation Comments Neutrophils # (Auto) (test code = 751-8) 3.1 2.1-6.9 [facility] DistrictLymphocytes # (Auto)2019-05-06 19:27:00* Test Item Value Reference Range Interpretation Comments Lymphocytes # (Auto) (test code = 42363-4) 2.3 1.0-3.2 [facility] DistrictMonocytes # (Auto)2019-05-06 19:27:00* Test Item Value Reference Range Interpretation Comments Monocytes # (Auto) (test code = 742-7) 0.5 0.2-0.8 [facility] DistrictEosinophils # (Auto)2019-05-06 19:27:00* Test Item Value Reference Range Interpretation Comments Eosinophils # (Auto) (test code = 711-2) 0.2 0.0-0.4 [facility] DistrictBasophils # (Auto)2019-05-06 19:27:00* Test Item Value Reference Range Interpretation Comments Basophils # (Auto) (test code = 704-7) 0.0 0.0-0.1 [facility] DistrictAbsolute Immature Granulocyte (auto 2019-05-06 19:27:00* Test Item Value Reference Range Interpretation Comments Absolute Immature Granulocyte (auto (corey t code = Absolute Immature Granulocyte (auto) 0.02 0-0.1 [facility] DistrictWhite Blood Irzgh4344-73-23 19:27:00* Test Item Value Reference Range Interpretation Comments White Blood Count (test code = 6690-2) 6.17 4.8-10.8 [facility] DistrictRed Blood Mweyy5261-98-29 19:27:00* Test Item Value Reference Range Interpretation Comments Red Blood Count (test code = 789-8) 5.34 3.6-5.1 H [facility] DistrictHemoglobin2020-01-15 19:27:00* Test Item Value Reference Range Interpretation Comments Hemoglobin (test code = 85290-7) 12.9 12.0-16.0 [facility] DistrictHematocrit2020-01-15 19:27:00* Test Item Value Reference Range Interpretation Comments Hematocrit (test code = 4544-3) 42.1 34.2-44.1 [facility] DistrictMean Corpuscular Stvsxf0311-24-85 19:27:00* Test Item Value Reference Range Interpretation Comments Mean Corpuscular Volume (test code = 787-2) 78.8 81-99 L [facility] DistrictMean Corpuscular Yklndqjgqy5753-86-46 19:27:00* Test Item Value Reference Range Interpretation Comments Mean Corpuscular Hemoglobin (test code = 785-6) 24.2 28-32 L [facility] DistrictMean Corpuscular Hemoglobin Concent 2019-05-06 19:27:00* Test Item Value Reference Range Interpretation Comments Mean Corpuscular Hemoglobin Concent (test code = 786-4) 30.6 31-35 L [facility] DistrictRed Cell Distribution Psaud8030-41-88 19:27:00* Test Item Value Reference Range Interpretation Comments Red Cell Distribution Width (test code = 63124-5) 14.8 11.7 -14.4 H [facility] DistrictPlatelet Eqqjr1822-10-45 19:27:00* Test Item Value Reference Range Interpretation Comments Platelet Count (test code = 777-3) 276 140-360 [facility] DistrictNeutrophils (%) (Auto)2019-05-06 19:27:00 * Test Item Value Reference Range Interpretation Comments Neutrophils (%) (Auto) (test code = 45904-6) 50.5 38.7-80.0 [facility] DistrictLymphocytes (%) (Auto)2019-05-06 19:27:00 * Test Item Value Reference Range Interpretation Comments Lymphocytes (%) (Auto) (test code = 736-9) 37.1 18.0-39.1 [facility] DistrictMonocytes (%) (Auto)2019-05-06 19:27:00* Test Item Value Reference Range Interpretation Comments Monocytes (%) (Auto) (test code = 5905-5) 7.9 4.4-11.3 [facility] DistrictEosinophils (%) (Auto)2019-05-06 19:27:00 * Test Item Value Reference Range Interpretation Comments Eosinophils (%) (Auto) (test code = 713-8) 3.7 0.0-6.0 [facility] DistrictBasophils (%) (Auto)2019-05-06 19:27:00* Test Item Value Reference Range Interpretation Comments Basophils (%) (Auto) (test code = 706-2) 0.5 0.0-1.0 [facility] DistrictIM GRANULOCYTES %2019-05-06 19:27:00* Test Item Value Reference Range Interpretation Comments IM GRANULOCYTES % (test code = IM GRANULOCYTES %) 0.3 0.0- 1.0 [facility] DistrictNeutrophils # (Auto)2019-05-06 19:27:00* Test Item Value Reference Range Interpretation Comments Neutrophils # (Auto) (test code = 751-8) 3.1 2.1-6.9 [facility] DistrictLymphocytes # (Auto)2019-05-06 19:27:00* Test Item Value Reference Range Interpretation Comments Lymphocytes # (Auto) (test code = 26848-7) 2.3 1.0-3.2 [facility] DistrictMonocytes # (Auto)2019-05-06 19:27:00* Test Item Value Reference Range Interpretation Comments Monocytes # (Auto) (test code = 742-7) 0.5 0.2-0.8 [facility] DistrictEosinophils # (Auto)2019-05-06 19:27:00* Test Item Value Reference Range Interpretation Comments Eosinophils # (Auto) (test code = 711-2) 0.2 0.0-0.4 [facility] DistrictBasophils # (Auto)2019-05-06 19:27:00* Test Item Value Reference Range Interpretation Comments Basophils # (Auto) (test code = 704-7) 0.0 0.0-0.1 [facility] DistrictAbsolute Immature Granulocyte (auto 2019-05-06 19:27:00* Test Item Value Reference Range Interpretation Comments Absolute Immature Granulocyte (auto (corey t code = Absolute Immature Granulocyte (auto) 0.02 0-0.1 [facility] DistrictCHEST 2 EWUCX2243-11-96 18:54:00 [place] [address] Patient Name: GHANSHYAM SCHROEDER MR #: [id number] : 1950 Age/Sex: 68/F Req #: [id number] Adm Physician: Ordered by: COLLEEN ANGUIANO DIRECTOR OF CATERING Report #: [id number] Location: ER Room/Bed: Procedure: [id number] DX /CHEST 2 VIEWS Exam Date: 05/06/19 [...] BRYANT on 05/06/191854 COPY TO: COLLEEN ANGUIANO DIRECTOR OF CATERING Blood leukocytes automated count (number/volume)2019-05-06 18:00:00* Test Item Value Reference Range Interpretation Comments White Blood Count (test code = 6690-2) 6.17 4.8-10.8 [facility] DistrictBlood erythrocytes automated count (number/volume)2019-05-06 18:00:00* Test Item Value Reference Range Interpretation Comments Red Blood Count (test code = 789-8) 5.34 3.6-5.1 [facility] DistrictBlood hemoglobin measurement (moles/volume)2019-05-06 18:00:00* Test Item Value Reference Range Interpretation Comments Hemoglobin (test code = 08086-2) 12.9 12.0-16.0 [facility] DistrictAutomated blood hematocrit (volume fraction)2019-05-06 18:00:00* Test Item Value Reference Range Interpretation Comments Hematocrit (test code = 4544-3) 42.1 34.2-44.1 [facility] DistrictAutomated erythrocyte mean corpuscular lnosym0933-33-98 18:00:00* Test Item Value Reference Range Interpretation Comments Mean Corpuscular Volume (test code = 787-2) 78.8 81-99 [facility] DistrictAutomated erythrocyte mean corpuscular hemoglobin (mass per erythrocyte)2019-05-06 18:00:00* Test Item Value Reference Range Interpretation Comments Mean Corpuscular Hemoglobin (test code = 785-6) 24.2 28-32 [facility] DistrictAutomated erythrocyte mean corpuscular hemoglobin concentration measurement (mass/volume)2019-05-06 18:00:00* Test Item Value Reference Range Interpretation Comments Mean Corpuscular Hemoglobin Concent (test code = 786-4) 30.6 31-35 [facility] DistrictRDW KloRf-Oee4480-46-15 18:00:00* Test Item Value Reference Range Interpretation Comments Red Cell Distribution Width (test code = 42641-5) 14.8 11.7 -14.4 [facility] DistrictAutomated blood platelet count (count/volume)2019-05-06 18:00:00* Test Item Value Reference Range Interpretation Comments Platelet Count (test code = 777-3) 276 140-360 [facility] DistrictAutomated blood segmented neutrophil count as percentage of total fzrpujfyxq0374-33-78 18:00:00* Test Item Value Reference Range Interpretation Comments Neutrophils (%) (Auto) (test code = 80061-3) 50.5 38.7-80.0 [facility] DistrictAutomated blood lymphocyte count as percentage ot total mgofifryxm0558-94-54 18:00:00* Test Item Value Reference Range Interpretation Comments Lymphocytes (%) (Auto) (test code = 736-9) 37.1 18.0-39.1 [facility] DistrictAutomated blood monocyte count as percentage of total plyojtaeqn9668-48-13 18:00:00* Test Item Value Reference Range Interpretation Comments Monocytes (%) (Auto) (test code = 5905-5) 7.9 4.4-11.3 [facility] DistrictAutomated blood eosinophil count as percentage of total rpapmyqrsx2649-79-79 18:00:00* Test Item Value Reference Range Interpretation Comments Eosinophils (%) (Auto) (test code = 713-8) 3.7 0.0-6.0 [facility] DistrictAutomated blood basophil count as percentage of total cdmidafips7554-83-47 18:00:00* Test Item Value Reference Range Interpretation Comments Basophils (%) (Auto) (test code = 706-2) 0.5 0.0-1.0 [facility] DistrictFluoroscopic procedure less than one hour lzcsvbsd8479-53-69 18:00:00* Test Item Value Reference Range Interpretation Comments IM GRANULOCYTES % (test code = IM GRANULOCYTES %) 0.3 0.0- 1.0 [facility] DistrictAutomated blood neutrophil count 2019-05-06 18:00:00* Test Item Value Reference Range Interpretation Comments Neutrophils # (Auto) (test code = 751-8) 3.1 2.1-6.9 [facility] DistrictBlood lymphocytes count (number/volume) 2019-05-06 18:00:00* Test Item Value Reference Range Interpretation Comments Lymphocytes # (Auto) (test code = 25064-3) 2.3 1.0-3.2 [facility] DistrictBlall[facility] monocytes automated count (number/volume)2019-05-06 18:00:00* Test Item Value Reference Range Interpretation Comments Monocytes # (Auto) (test code = 742-7) 0.5 0.2-0.8 [facility] DistrictAutomated blood eosinophil count 2019-05-06 18:00:00* Test Item Value Reference Range Interpretation Comments Eosinophils # (Auto) (test code = 711-2) 0.2 0.0-0.4 [facility] DistrictAutomated blood basophil count (count/volume)2019-05-06 18:00:00* Test Item Value Reference Range Interpretation Comments Basophils # (Auto) (test code = 704-7) 0.0 0.0-0.1 [facility] DistrictFluoroscopic procedure less than one hour ffzwlrhi5339-15-43 18:00:00* Test Item Value Reference Range Interpretation Comments Absolute Immature Granulocyte (auto (corey t code = Absolute Immature Granulocyte (auto) 0.02 0-0.1 [facility] DistrictProthrombin time (PT) in platelet poor plasma by coagulation otmob1514-97-65 18:00:00* Test Item Value Reference Range Interpretation Comments Prothrombin Time (test code = 5902-2) 11.8 11.9-14.5 [facility] DistrictINR in Platelet poor plasma by Coagulation wnilv8495-20-21 18:00:00* Test Item Value Reference Range Interpretation Comments Prothromb Time International Ratio (test code = 6301-6) 0.82 Oral Anticoagulant Therapy INR Values:1. Low Intensity Therapy 1.5 - 2.02 . Moderate Intensity Therapy 2.0 - 3.03. High Intensity Therapy(1) 2.5 - 3. 54. High Intensity Therapy(2) 3.0 - 4.05. Panic Value INR > 5.0 [facility] DistrictActivated partial thromboplastin time (aPTT) in platelet poor plasma by coagulation vkezr0145-12-51 18:00:00* Test Item Value Reference Range Interpretation Comments Activated Partial Thromboplast Time (test code = 89518-9) 26.3 23.8-35.5 [facility] Centererum or plasma sodium measurement (moles/volume)2019-05-06 18:00:00* Test Item Value Reference Range Interpretation Comments Sodium Level (test code = 2951-2) 144 136-145 [facility] potassium measurement (moles/volume)2019-05-06 18:00:00* Test Item Value Reference Range Interpretation Comments Potassium Level (test code = 2823-3) 3.5 3.5-5.1 [facility] chloride measurement (moles/volume)2019-05-06 18:00:00* Test Item Value Reference Range Interpretation Comments Chloride Level (test code = 2075-0) 104 98-107 [facility] DistrictInfluenza virus A and B antigen identification by oamxxckuevjiusyves0190-44-33 18:00:00* Test Item Value Reference Range Interpretation Comments Influenza Virus Types A,B Antigen (test code = 20323-1) NEGATIVE NEGATIVE [facility] plasma carbon dioxide, total measurement (moles/volume)2019-05-06 18:00:00* Test Item Value Reference Range Interpretation Comments Carbon Dioxide Level (test code = 2028-9) 29 22-29 [facility] anion efz5122-08-50 18:00:00* Test Item Value Reference Range Interpretation Comments Anion Gap (test code = 90756-4) 14.5 8-16 [facility] urea nitrogen measurement (mass/volume)2019-05-06 18:00:00* Test Item Value Reference Range Interpretation Comments Blood Urea Nitrogen (test code = 3094-0) 11 7-26 [facility] creatinine measurement (mass/volume)2019-05-06 18:00:00* Test Item Value Reference Range Interpretation Comments Creatinine (test code = 2160-0) 0.98 0.57-1.11 [facility] plasma urea nitrogen/creatinine mass qwmif2289-40-95 18:00:00* Test Item Value Reference Range Interpretation Comments BUN/Creatinine Ratio (test code = 3097-3) 11 - [facility] DistrictEstimated glomerular filtration rate (GFR) rhmujhkfcnaoe6698-96-27 18:00:00* Test Item Value Reference Range Interpretation Comments Estimat Glomerular Filtration Rate (test code = 763113674) > 60 >60 Ranges were taken from the National Kidney Disease Education Program and the [facility] Kidney Foundation literature.Reference ranges:60 or greater: Uvsius82-59 ( for 3 consecutive months): Chronic kidney disease 15 or less: Kidney failureBallinger Memorial Hospital DistrictGlucose lwgtbpwcnxb5498-85-99 18:00:00* Test Item Value Reference Range Interpretation Comments Glucose Level (test code = PIX1783) 183 74-118 [facility] calcium measurement (mass/volume)2019-05-06 18:00:00* Test Item Value Reference Range Interpretation Comments Calcium Level (test code = 43831-4) 9.2 8.4-10.2 [facility] plasma total bilirubin measurement (mass/volume)2019-05-06 18:00:00* Test Item Value Reference Range Interpretation Comments Total Bilirubin (test code = 1975-2) 0.3 0.2-1.2 [facility] DistrictFluoroscopic procedure less than one hour vxiddtnq2201-78-18 18:00:00* Test Item Value Reference Range Interpretation Comments Aspartate Amino Transf (AST/SGOT) (test code = Aspartate Amino Transf (AST/SGOT)) 28 5-34 [facility] or plasma alanine aminotransferase measurement (enzymatic activity/volume)2019-05-06 18:00:00* Test Item Value Reference Range Interpretation Comments Alanine Aminotransferase (ALT/SGPT) (test code = 1742-6) 33 0-55 [facility] or plasma protein measurement (mass/volume)2019-05-06 18:00:00* Test Item Value Reference Range Interpretation Comments Total Protein (test code = 2885-2) 7.3 6.5-8.1 [facility] or plasma albumin measurement (mass/volume)2019-05-06 18:00:00* Test Item Value Reference Range Interpretation Comments Albumin (test code = 1751-7) 3.6 3.5-5.0 [facility] DistrictPlasma globulin measurement (mass/volume) 2019-05-06 18:00:00* Test Item Value Reference Range Interpretation Comments Globulin (test code = 04533-6) 3.7 2.3-3.5 [facility] albumin/globulin mass xincu1038-82-73 18:00:00* Test Item Value Reference Range Interpretation Comments Albumin/Globulin Ratio (test code = 1759-0) 1.0 0.8-2.0 [facility]ere[facility] or plasma alkaline phosphatase measurement (enzymatic activity/volume)2019-05-06 18:00:00* Test Item Value Reference Range Interpretation Comments Alkaline Phosphatase (test code = 6768-6) 69 40-150 [facility] DistrictBNP Gqk-wExm8450-39-15 18:00:00* Test Item Value Reference Range Interpretation Comments B-Type Natriuretic Peptide (test code = 79055-9) 16.9 0-100 [facility] or plasma creatine kinase measurement (enzymatic activity/volume)2019-05-06 18:00:00* Test Item Value Reference Range Interpretation Comments Creatine Kinase (test code = 2157-6) 187 29-168 [facility]ererum or plasma creatine kinase MB measurement (mass/volume)2019-05-06 18:00:00* Test Item Value Reference Range Interpretation Comments Creatine Kinase MB (test code = 21657-0) 2.60 0-5.0 [facility] DistrictTroponin I measurement by highly sensitive enzyme zbhyrvgahpx3079-87-63 18:00:00* Test Item Value Reference Range Interpretation Comments Troponin I (test code = 28369-0) < 0.001 0-0.300 [facility] DistrictActivated partial thromboplastin time (aPTT) in platelet poor plasma by coagulation olmgz0845-88-72 18:00:00* Test Item Value Reference Range Interpretation Comments Activated Partial Thromboplast Time (test code = 80002-5) 26.3 23.8-35.5 [facility] DistrictInfluenza virus A and B antigen identification by tlygsdcyraknzgdojm0823-20-47 18:00:00* Test Item Value Reference Range Interpretation Comments Influenza Virus Types A,B Antigen (test code = 97279-8) NEGATIVE NEGATIVE [facility] DistrictBNP Fsw-wObe7159-76-15 18:00:00* Test Item Value Reference Range Interpretation Comments B-Type Natriuretic Peptide (test code = 31255-3) 16.9 0-100 [facility] or plasma creatine kinase measurement (enzymatic activity/volume)2019-05-06 18:00:00* Test Item Value Reference Range Interpretation Comments Creatine Kinase (test code = 2157-6) 187 29-168 [facility] or plasma creatine kinase MB measurement (mass/volume)2019-05-06 18:00:00* Test Item Value Reference Range Interpretation Comments Creatine Kinase MB (test code = 34580-9) 2.60 0-5.0 [facility] DistrictTroponin I measurement by highly sensitive enzyme aunaoemjmyy6232-68-35 18:00:00* Test Item Value Reference Range Interpretation Comments Troponin I (test code = 95430-0) < 0.001 0-0.300 [facility] DistrictCT, CTA CORONARY WITH CALCIUM EVAL AND FFR MVCZPUHX3845-43-20 10:25:00Reason for exam:->CHEST PAINAddendum BeginsREPORT STATUS:A Addendum: [...] MDReport Verified Date/Time: 02/03/2019 10:25:08 Reading Location: [facility] Diagnostic Imaging Reading Room - [facility] 1.310.12Addendum EndsFINAL REPORT CT coronary angiography, [...] performed. Coronary calcification was analyzed using the Vitrea system software. These are the results of [...] the result would be sent to [email or web address] when available. However, the data will likely [...] fin dings will be reviewed by the Solar Sales Representative Radiologist and addendum will be added as needed. Signed: Suhas Richards MDReport Verified Date/Time: 02/02/2019 14 :31:21 heart coronary with calcium evaluation with POR0985-59-65 14:31:00 Interface, External Ris In - 02/03/2019 [...] ultrasound. Signed: Francisco Colón MDReport Verified Date/Time: 2018 10:25:08 Reading Location: [facility] Diagnostic Imaging Reading Room - [facility] 1 .310.12Addendum EndsFINAL REPORT CT coronary [...] performed. Coronary calcification was analyzed using the [email or web address] system software. These are the results of [...] postprocessing, the result would be sent to [email or web address] when available. However, the data will likely [...] fin dings will be reviewed by the Solar Sales Representative Radiologist and addendum will be added as needed. Signed: Suhas Richards Verified Date/Time: 02/02/2019 14 :31:21 [facility] metabolic hayod9257-56-05 06:56:00* Test Item Value Reference Range Interpretation [...] mg/dL 70-105 H Calcium (test code = 40989-2) 9.2 mg/dL 8.4-10.2 EGFR (test code = 44192-6) 45 mL/min/1.73 sq m ESTIMATED GFR IS NOT ACCURATE CREATININE CLEARANCE IN PREDICTING GLOMERULAR FILTRATION RATE. ESTIMATED GFR IS NOT APPLICABLE FOR DIALYSIS PATIENTS. Lab Interpretation (test code = 83140-1) Abnormal [facility] METABOLIC JEPCG0666-56-54 06:56:00* Test Item Value Reference Range Interpretation [...] NOT APPLICABLE FOR DIALYSIS PATIENTS. ECG 12 afzh9679-36-36 06:31:23Interface, External Ris In - 02/02/2019 6:31 AM CDTVentricular Rate 70 BPMAtrial Rate 70 BPMP-R Interval 160 msQRS Duration 62 msQ-T Interval 378 msQTC Calculation(Bazett) 408 msP [place] 49 degreesR [place] 18 degreesT [place] 155 degreesNormal sinus rhythmT wave inversin lateral leads consider postischemic changesAbnormal ECGWhen compared with ECG of 30-JAN-2019 09:42,No significant change was foundConfirmed by MD PAOLA, JAGRUTI ([id number]) on 02/02/2019 6:31:22 [facility] CenterC[facility]Glucose xvphq9101-84-32 21:36:00* Test Item Value Reference Range Interpretation Comments POC-Glucose Meter (test code = 1538) 96 mg/dL 70-110 TESTED AT [place] [id number] [facility] [address] Lab Interpretation (test code = 92915-8) [facility] MKPIP4234-78-87 21:36:00* Test Item Value Reference Range Interpretation Comments POC-GLUCOSE METER (BEAKER) (test code = 1538) 96 mg/dL 70-[address] [facility] [address] [facility] [address] POCT-GLUCOSE [id number] 17:23:00* Test Item Value Reference Range Interpretation Comments POC-GLUCOSE METER (BEAKER) (test code = 1538) 135 mg/dL 70-[address] [facility] [address] [facility] [address] POCT-GLUCOSE [id number] 11:40:00* Test Item Value Reference Range Interpretation Comments POC-GLUCOSE METER (BEAKER) (test code = 1538) 142 mg/dL 70-[address] [facility] [address] [facility] [address] POCT-GLUCOSE [id number] 08:02:00* Test Item Value Reference Range Interpretation Comments POC-GLUCOSE METER (BEAKER) (test code = 1538) 126 mg/dL 70-110 H TESTED AT [address] [address] BASIC METABOLIC [id number] 06:07:00* Test Item Value Reference Range Interpretation [...] IS NOT APPLICABLE FOR DIALYSIS PATIENTS. POCT-GLUCOSE SCXMB1439-88-01 21:23:00* Test Item Value Reference Range Interpretation Comments POC-GLUCOSE METER (BEAKER) (test code = 1538) 141 mg/dL 70-110 H TESTED AT [address] [address] POCT-GLUCOSE [id number] 17:54:00* Test Item Value Reference Range Interpretation Comments POC-GLUCOSE METER (BEAKER) (test code = 1538) 83 mg/dL 70-110 TESTED AT [address] [address] POCT-GLUCOSE [id number] 12:44:00* Test Item Value Reference Range Interpretation Comments POC-GLUCOSE METER (BEAKER) (test code = 1538) 145 mg/dL 70-110 H TESTED AT [address] [address] POCT-GLUCOSE [id number] 08:35:00* Test Item Value Reference Range Interpretation Comments POC-GLUCOSE METER (BEAKER) (test code = 1538) 133 mg/dL 70-[address] [facility] [address] [facility] [address] Hemoglobin [id number] 07:17:00* Test Item Value Reference Range Interpretation Comments Hemoglobin A1C (test code = 4548-4) 9.4 % 4.3-6.1 H Lab Interpretation (test code = 98971-6) [facility]normal [facility]HEMO[facility] [id number] 07:17:00* Test Item Value Reference Range Interpretation Comments HEMOGLOBIN A1C (BEAKER) (test code = 368) 9.4 % 4.3-6.1 H Lipid iaogc2628-33-76 06:27:00* Test Item Value Reference Range Interpretation Comments Triglycerides (test code = 2571-8) 250 mg/dL Cholesterol (test code = 2093-3) 142 mg/dL HDL (test code = 2085-9) 29 mg/dL LDL Calculated (test code = 43877-8) 63 mg/dL NIRAJ (test code = NIRAJ) Triglyceride Reference Range : Low Risk <150 Borderline 150-199 High Risk 200-499 Very High Risk >=500 Cholesterol Reference Range: Low Risk <200 Borderline 200-239 High Risk >240 HDL Cholesterol Reference Range: Low Risk >=60 High Risk <40 LDL Cholesterol Reference Range: Optimal <100 Near Optimal 100-129 Borderline 130-159 High 160-189 Very High >=190 [facility] HospitalLIPID [id number] 06:27:00* Test Item Value Reference Range Interpretation [...] High 160-189 Very High >=190 BASIC METABOLIC [id number] 06:27:00* Test Item Value Reference Range Interpretation [...] APPLICABLE FOR DIALYSIS PATIENTS. TSH/Free T4 If Dcglrwrmg9407-46-78 05:53:00* Test Item Value Reference Range Interpretation Comments TSH (test code = 31510-5) 0.84 0.35- 4.94 uIU/mL Lab Interpretation (test code = 75654-6) [facility]/FREE T4 IF [id number] 05:53:00* Test Item Value Reference Range Interpretation Comments THYROID STIMULATING HORMONE (BEAKER) (test code = 772) 0.84 uIU/mL 0.35-4.94 CBC with platelet count + automated emqx1710-36-29 05:13:00* Test Item Value Reference Range Interpretation [...] 450 K/CU MM MPV (test code = 68181-4) 10.8 fL 9.4-12.3 nRBC (test code = [...] % 0-1 Lab Interpretation (test code = 01171-4) Abnormal [facility] W/PLT COUNT & AUTO RJEYUCDCFJAC8864-61-38 05:13:00* Test Item Value Reference Range Interpretation [...] code = 2801) 0 % 0-1 POCT-GLUCOSE [id number] 21:36:00* Test Item Value Reference Range Interpretation Comments POC-GLUCOSE METER (BEAKER) (test code = 1538) 114 mg/dL 70-[address] [facility] [address] [facility] [address] Troponin [id number] 21:25:00* Test Item Value Reference Range Interpretation Comments Troponin I (test code = 13550-7) <0.01 0-0.03 NIRAJ (test code = NIRAJ) [...] persistent tachyarrhythmia. Lab Interpretation (test code = 93885-3) Normal [facility] HospitalTROPONIN [id number] 21:25:00* Test Item Value Reference Range Interpretation Comments TROPONIN I (BHUPINDERAKER) (test code = 397) < ng/mL 0.00-0.03 [...] acute neurological disease, and per sistent tachyarrhythmia.POCT-GLUCOSE [id number] 18:42:00* Test Item Value Reference Range Interpretation Comments POC-GLUCOSE METER (BEAKER) (test code = 1538) 92 mg/dL 70-[address] [facility] [address] [facility] [address] TROPONIN [id number] 17:00:00* Test Item Value Reference Range Interpretation [...] acute neurological disease, and per sistent tachyarrhythmia.POCT-GLUCOSE [id number] 14:34:00* Test Item Value Reference Range Interpretation Comments POC-GLUCOSE METER (BEAKER) (test code = 1538) 116 mg/dL 70-[address] [facility] [address] [facility] [address] B-type Natriuretic Factor (BNP)2019-01-30 11:42:00* Test Item Value Reference Range Interpretation Comments BNP (test code = 59937-1) <10 0-100 Lab Interpretation (test code = 87524-7) Normal [facility] HospitalB-TYPE NATRIURETIC FACTOR (BNP)2019-01-30 11:42:00 * Test Item Value Reference Range Interpretation Comments B-TYPE NATRIURETIC PEPTIDE (BEAKER) (test code = 700) < pg/mL 0-100 TROPONIN [id number] 11:04:00* Test Item Value Reference Range Interpretation [...] acidosis, acute neurological disease, and per sistent tachyarrhythmia.Bhlegyyih1270-79-44 10:56:00* Test Item Value Reference Range Interpretation Comments Magnesium (test code = 00408-2) 1.7 mg/dL 1.6-2.6 Lab Interpretation (test code = 14099-3) [facility]2019-10-11 10:56:00* Test Item Value Reference Range Interpretation Comments MAGNESIUM (BEAKER) (test code = 627) 1.7 mg/dL 1.6-2.6 BASIC METABOLIC [id number] 10:56:00* Test Item Value Reference Range Interpretation [...] GFR IS NOT APPLICABLE FOR DIALYSIS PATIENTS. PT/aDLX5964-14-46 10:48:00* Test Item Value Reference Range Interpretation Comments Protime (test code = 5902-2) 13.5 11.9- 14.2 seconds INR (test code = 6301-6) 1.1 <=5.9 PTT (test code = 18034-6) 28.7 22.5- 36.0 seconds NIRAJ (test code = NIRAJ) Effective 09/17/2018: PT Refe rence Range ChangeNew: 11.9- 14.2 Previous: 11.7-14.7 RECOMMENDED COUMADIN/WARFARIN INR THERAPY RANGESSTANDARD DOSE: 2.0-3.0 Includes: PROPHYLAXIS for venous thrombosis, sys temic embolization; TREATMENT for venous thrombosis and/or pulmonary embolus.HIGH RISK: Target INR is 2.5-3.5 for patients wiht mechanical heart valves. Lab Interpretation (test code = 33408-6) Normal [facility] HospitalPT/OBOA0510-18-03 10:48:00* Test Item Value Reference Range Interpretation [...] mechanical heart valves.CBC W/PLT COUNT & AUTO QKKFBAYGUVAD3474-31-17 10:39:00* Test Item Value Reference Range Interpretation [...] 2801) 0 % 0-1 RAD, CHEST, 2 [id number] 10:08:00Reason for exam:->CHEST PAINFINAL REPORT INDICATION: CHEST PAIN COMPARISON: December 28, 2015 TECHNIQUE: Frontal and lateral views of the chest. FINDINGS: Lungs and pleura: Clear lungs. No effusion.Heart and mediastinum: Normal heart size. Unremarkable mediastinal contours.Osseous structures: No acute abnormality.Additional findings: None. IMPRESSION: No acute intrathoracic abnormality. Signed: Narinder tuttle JR, Robert MDReport Verified Date/Time: 01/30/2019 10:08:24 Reading Loc ation: [facility] Reading Room chest 2 yridg4975-40-84 10:08:00 Interface, External Ris In - 01/30/2019 10:10 AM CDTFINAL REPORT PATIENT ID: [id number] INDICATION: CHEST PAIN COMPARISON: December 28, 2015 TECHNIQUE: Frontal and lateral views of the chest. FINDINGS: Lungs and pleura: Clear lungs. No effu donnie.Heart and mediastinum: Normal heart size. Unremarkable mediastinal contours .Osseous structures: No acute abnormality.Additional findings: None. IMPRESSION : No acute intrathoracic abnormality. Signed: JR Mello Robert MDReport Verified Date/Time: 01/30/2019 10:08:24 Reading Location: [facility] Reading Room Electronically signed by: DARSHAN MELLO on 10:08 AM [facility]CT [facility]BDOM[facility]/PELVIS [id number] 13:34:00 [place] [address] Patient Name: GHANSHYAM SCHROEDER MR #: [id number] : 1950 Age/Sex: 67/F Req #: [id number] Adm Physician: Ordered by: YANET COATS DIRECTOR OF CATERING Report #: [id number] Location: ER Room/Bed: Procedure: [id number] C T/CT ABDOMEN/PELVIS WO Exam Date: 07/03/18 [...] on 07/03/18 1409 COPY TO: YANET COATS DIRECTOR OF CATERING B-Type Natriuretic Dkeatfs1718-99-86 12:07:00* Test Item Value Reference Range Interpretation Comments B-Type Natriuretic Peptide (test code = 82471-8) < 10.0 0-100 [facility] DistrictProthrombin Ayrf9184-83-66 11:49:00* Test Item Value Reference Range Interpretation Comments Prothrombin Time (test code = 5902-2) 12.3 11.9-14.5 [facility] DistrictProthromb Time International Ratio 2018-07-03 11:49:00* Test Item Value Reference Range Interpretation Comments Prothromb Time International Ratio (test code = 6301-6) 0.87 Oral Anticoagulant Therapy INR Values:1. Low Intensity Therapy 1.5 - 2.02 . Moderate Intensity Therapy 2.0 - 3.03. High Intensity Therapy(1) 2.5 - 3. 54. High Intensity Therapy(2) 3.0 - 4.05. Panic Value INR > 5.0 [facility] DistrictActivated Partial Thromboplast Time 2018-07-03 11:49:00* Test Item Value Reference Range Interpretation Comments Activated Partial Thromboplast Time (test code = 63765-1) 30.1 23.8-35.5 [facility] DistrictUrine Bxqrn1177-52-82 11:46:00* Test Item Value Reference Range Interpretation Comments Urine Blood (test code = 41796-6) NEGATIVE NEGATIVE [facility] DistrictUrine EMD5318-00-82 11:46:00* Test Item Value Reference Range Interpretation Comments Urine WBC (test code = 5821-4) 6-10 0-5 H [facility] DistrictUrine [id number] 11:46:00* Test Item Value Reference Range Interpretation Comments Urine RBC (test code = 52375-1) NONE 0-5 [facility] DistrictUrine Xymtdhjo3446-41-30 11:46:00* Test Item Value Reference Range Interpretation Comments Urine Bacteria (test code = 52128-7) MANY NONE H [facility] DistrictUrine Epithelial Vnydf0210-39-18 11:46:00 * Test Item Value Reference Range Interpretation Comments Urine Epithelial Cells (test code = 31218-4) MANY NONE [facility] DistrictCreatine Kinase [id number] 11:45:00* Test Item Value Reference Range Interpretation Comments Creatine Kinase MB (test code = 15367-0) 1.70 0-5.0 [facility] DistrictTroponin [id number] 11:45:00* Test Item Value Reference Range Interpretation Comments Troponin I (test code = RBO9646) 0.003 0-0.300 [facility] DistrictCHEST 2 [id number] 11:42:00 [facility] [address] [place] [address] Patient Name: GHANSHYAM SCHROEDER MR #: [id number] : 1950 Age/Sex: 67/F Req #: [id number] Adm Physician: Ordered by: YANET COATS NP Report #: [id number] Location: ER Room/Bed: Procedure: [id number] D X/CHEST 2 VIEWS Exam Date: 07/03/18 [...] r adiographic abnormality. Signed by: Dr. Keyona Montyoa MD on 07/03/2018 11:44 AM Dictated By: KEYONA MONTOYA MD 1144 Transcribed By: BRYANT on 07/03/18 1144 COPY TO: YANET COATS DIRECTOR OF CATERING Sodium Vhpat5285-00-49 11:38:00* Test Item Value Reference Range Interpretation Comments Sodium Level (test code = 2951-2) 137 136-145 [facility] DistrictPotassium Pmerg9089-16-05 11:38:00* Test Item Value Reference Range Interpretation Comments Potassium Level (test code = 2823-3) 3.5 3.5-5.1 [facility] DistrictChloride Gdrtj8301-93-80 11:38:00* Test Item Value Reference Range Interpretation Comments Chloride Level (test code = 2075-0) 99 98-107 [facility] DistrictCarbon Dioxide Jdxfb5154-64-32 11:38:00* Test Item Value Reference Range Interpretation Comments Carbon Dioxide Level (test code = 2028-9) 26 22-29 [facility] DistrictAnion Pai6276-67-91 11:38:00* Test Item Value Reference Range Interpretation Comments Anion Gap (test code = 81216-1) 15.5 8-16 [facility] DistrictBlood Urea Nnzzpsdc7730-37-81 11:38:00* Test Item Value Reference Range Interpretation Comments Blood Urea Nitrogen (test code = 3094-0) 19 7-26 [facility] DistrictCreatinine2019-03-14 11:38:00* Test Item Value Reference Range Interpretation Comments Creatinine (test code = 2160-0) 1.19 0.57-1.11 H [facility] DistrictBUN/Creatinine Lvjyn0987-13-80 11:38:00* Test Item Value Reference Range Interpretation Comments BUN/Creatinine Ratio (test code = 3097-3) 16 6-25 [facility] DistrictEstimat Glomerular Filtration Rate 2018-07-03 11:38:00* Test Item Value Reference Range Interpretation Comments Estimat Glomerular Filtration Rate (test code = 129529630) 55 >60 L Ranges were taken from the National Kidney Disease Education Program and the [facility] Kidney Foundation literature.Reference ranges:60 or greater: Zrgmew76-40 ( for 3 consecutive months): Chronic kidney disease 15 or less: Kidney failureBallinger Memorial Hospital DistrictGlucose Itnlo3922-17-57 11:38:00* Test Item Value Reference Range Interpretation Comments Glucose Level (test code = UYY7019) 188 74-118 H [facility] DistrictCalcium Dqsrb9266-99-39 11:38:00* Test Item Value Reference Range Interpretation Comments Calcium Level (test code = 47341-2) 9.1 8.4-10.2 [facility] DistrictMagnesium Mhexx5084-68-80 11:38:00* Test Item Value Reference Range Interpretation Comments Magnesium Level (test code = 39195-9) 2.4 1.3-2.1 H [facility] DistrictTotal Fybwzoiyn0088-54-89 11:38:00* Test Item Value Reference Range Interpretation Comments Total Bilirubin (test code = 1975-2) 0.5 0.2-1.2 [facility] DistrictAspartate Amino Transf (AST/SGOT) 2018-07-03 11:38:00* Test Item Value Reference Range Interpretation Comments Aspartate Amino Transf (AST/SGOT) (test code = Aspartate Amino Transf (AST/SGOT)) 17 5-34 [facility] DistrictAlanine Aminotransferase (ALT/SGPT) 2018-07-03 11:38:00* Test Item Value Reference Range Interpretation Comments Alanine Aminotransferase (ALT/SGPT) (test code = 1742-6) 16 0-55 [facility] DistrictTotal Uxginkd4392-37-50 11:38:00* Test Item Value Reference Range Interpretation Comments Total Protein (test code = 2885-2) 7.5 6.5-8.1 [facility] DistrictAlbumin2019-03-14 11:38:00* Test Item Value Reference Range Interpretation Comments Albumin (test code = 1751-7) 3.5 3.5-5.0 [facility] DistrictGlobulin2019-03-14 11:38:00* Test Item Value Reference Range Interpretation Comments Globulin (test code = 75389-2) 4.0 2.3-3.5 H [facility] DistrictAlbumin/Globulin Evhkx7625-89-35 11:38:00 * Test Item Value Reference Range Interpretation Comments Albumin/Globulin Ratio (test code = 1759-0) 0.9 0.8-2.0 [facility] DistrictAlkaline Ifzjokqltvm8540-50-58 11:38:00* Test Item Value Reference Range Interpretation Comments Alkaline Phosphatase (test code = 6768-6) 95 40-150 [facility] DistrictCreatine Gaoxfm7675-33-91 11:38:00* Test Item Value Reference Range Interpretation Comments Creatine Kinase (test code = 2157-6) 187 29-168 H [facility] DistrictAmylase Jqojq4559-18-53 11:38:00* Test Item Value Reference Range Interpretation Comments Amylase Level (test code = 1798-8) 82 25-125 [facility] DistrictLipase2019-03-14 11:38:00* Test Item Value Reference Range Interpretation Comments Lipase (test code = 3040-3) 38 8-78 [facility] DistrictUrine Epcjt7575-76-29 11:34:00* Test Item Value Reference Range Interpretation Comments Urine Color (test code = 5778-6) YELLOW YELLOW [facility] DistrictUrine Ehqzceu8512-05-63 11:34:00* Test Item Value Reference Range Interpretation Comments Urine Clarity (test code = 82801-3) CLEAR CLEAR [facility] DistrictU[facility] Specific Cegyuuk8991-84-42 11:34:00 * Test Item Value Reference Range Interpretation Comments Urine Specific [place] (test code = 5811-5) 1.020 1.010-1.02 5 [facility] DistrictU[facility] cV8361-19-75 11:34:00* Test Item Value Reference Range Interpretation Comments Urine pH (test code = 43489-6) 6 5-7 [facility] DistrictU[facility] Leukocyte Gyrssftq7592-20-77 11:34:00* Test Item Value Reference Range Interpretation Comments Urine Leukocyte Esterase (test code = 5799-2) NEGATIVE NEGATIVE [facility] DistrictU[facility] Sgaqlfo2544-21-07 11:34:00* Test Item Value Reference Range Interpretation Comments Urine Nitrite (test code = 76012-2) NEGATIVE NEGATIVE [facility] DistrictU[facility] Nthanqd4644-95-96 11:34:00* Test Item Value Reference Range Interpretation Comments Urine Protein (test code = 5804-0) NEGATIVE NEGATIVE [facility] DistrictU[facility] Glucose (UA)2018-07-03 11:34:00* Test Item Value Reference Range Interpretation Comments Urine Glucose (UA) (test code = 2349-9) NEGATIVE NEGATIVE [facility] DistrictU[facility] Jtyysps8328-60-82 11:34:00* Test Item Value Reference Range Interpretation Comments Urine Ketones (test code = 51794-5) NEGATIVE NEGATIVE [facility] DistrictU[facility] Eoyzjxevrjxg0796-44-76 11:34:00* Test Item Value Reference Range Interpretation Comments Urine Urobilinogen (test code = 99430-9) 0.2 0.2-1 [facility] DistrictU[facility] Laflsvimq2044-26-68 11:34:00* Test Item Value Reference Range Interpretation Comments Urine Bilirubin (test code = 1978-6) NEGATIVE NEGATIVE [facility] DistrictWhite Blood Kbfyw4257-71-47 11:26:00* Test Item Value Reference Range Interpretation Comments White Blood Count (test code = 6690-2) 8.90 4.8-10.8 [facility] DistrictRed Blood Eldeg0623-87-13 11:26:00* Test Item Value Reference Range Interpretation Comments Red Blood Count (test code = 789-8) 5.26 3.6-5.1 H [facility] DistrictHemoglobin2019-03-14 11:26:00* Test Item Value Reference Range Interpretation Comments Hemoglobin (test code = 31328-7) 12.8 12.0-16.0 [facility] DistrictHematocrit2019-03-14 11:26:00* Test Item Value Reference Range Interpretation Comments Hematocrit (test code = 4544-3) 40.9 34.2-44.1 [facility] DistrictMean Corpuscular Egjccj4375-64-08 11:26:00* Test Item Value Reference Range Interpretation Comments Mean Corpuscular Volume (test code = 787-2) 77.8 81-99 L [facility] DistrictMean Corpuscular Wpwruawehv3645-31-62 11:26:00* Test Item Value Reference Range Interpretation Comments Mean Corpuscular Hemoglobin (test code = 785-6) 24.3 28-32 L [facility] DistrictMean Corpuscular Hemoglobin Concent 2018-07-03 11:26:00* Test Item Value Reference Range Interpretation Comments Mean Corpuscular Hemoglobin Concent (test code = 786-4) 31.3 31-35 [facility] DistrictRed Cell Distribution Wstsy9437-07-75 11:26:00* Test Item Value Reference Range Interpretation Comments Red Cell Distribution Width (test code = 40823-3) 15.2 11.7 -14.4 H [facility] DistrictPlatelet Dzjba8421-07-84 11:26:00* Test Item Value Reference Range Interpretation Comments Platelet Count (test code = 777-3) 250 140-360 [facility] DistrictNeutrophils (%) (Auto)2018-07-03 11:26:00 * Test Item Value Reference Range Interpretation Comments Neutrophils (%) (Auto) (test code = 48704-1) 64.3 38.7-80.0 [facility] DistrictLymphocytes (%) (Auto)2018-07-03 11:26:00 * Test Item Value Reference Range Interpretation Comments Lymphocytes (%) (Auto) (test code = 736-9) 25.1 18.0-39.1 [facility] DistrictMonocytes (%) (Auto)2018-07-03 11:26:00* Test Item Value Reference Range Interpretation Comments Monocytes (%) (Auto) (test code = 5905-5) 7.1 4.4-11.3 [facility] DistrictEosinophils (%) (Auto)2018-07-03 11:26:00 * Test Item Value Reference Range Interpretation Comments Eosinophils (%) (Auto) (test code = 713-8) 2.8 0.0-6.0 [facility] DistrictBasophils (%) (Auto)2018-07-03 11:26:00* Test Item Value Reference Range Interpretation Comments Basophils (%) (Auto) (test code = 706-2) 0.3 0.0-1.0 [facility] DistrictIM GRANULOCYTES %2018-07-03 11:26:00* Test Item Value Reference Range Interpretation Comments IM GRANULOCYTES % (test code = IM GRANULOCYTES %) 0.4 0.0- 1.0 [facility] DistrictNeutrophils # (Auto)2018-07-03 11:26:00* Test Item Value Reference Range Interpretation Comments Neutrophils # (Auto) (test code = 751-8) 5.7 2.1-6.9 [facility] DistrictLymphocytes # (Auto)2018-07-03 11:26:00* Test Item Value Reference Range Interpretation Comments Lymphocytes # (Auto) (test code = 57030-9) 2.2 1.0-3.2 [facility] DistrictMonocytes # (Auto)2018-07-03 11:26:00* Test Item Value Reference Range Interpretation Comments Monocytes # (Auto) (test code = 742-7) 0.6 0.2-0.8 [facility] DistrictEosinophils # (Auto)2018-07-03 11:26:00* Test Item Value Reference Range Interpretation Comments Eosinophils # (Auto) (test code = 711-2) 0.3 0.0-0.4 [facility] DistrictBasophils # (Auto)2018-07-03 11:26:00* Test Item Value Reference Range Interpretation Comments Basophils # (Auto) (test code = 704-7) 0.0 0.0-0.1 [facility] DistrictAbsolute Immature Granulocyte (auto 2018-07-03 11:26:00* Test Item Value Reference Range Interpretation Comments Absolute Immature Granulocyte (auto (corey t code = Absolute Immature Granulocyte (auto) 0.04 0-0.1 [facility] DistrictPOCT-GLUCOSE CNNCR6050-74-39 11:51:00* Test Item Value Reference Range Interpretation Comments POC-GLUCOSE METER (BEAKER) (test code = 1538) 124 mg/dL 70-110 H TESTED AT [facility] [address] [facility] [address] Creatine Kinase LO4874-73-79 15:21:00* Test Item Value Reference Range Interpretation Comments Creatine Kinase MB (test code = 02441-9) 1.40 0-5.0 [facility] DistrictTroponin T7808-07-68 15:21:00* Test Item Value Reference Range Interpretation Comments Troponin I (test code = FBO1921) 0.005 0-0.300 [facility] Cfoxd7441-09-00 15:18:00* Test Item Value Reference Range Interpretation Comments Sodium Level (test code = 2951-2) 141 136-145 [facility] DistrictPotassium Pabzh8313-64-58 15:18:00* Test Item Value Reference Range Interpretation Comments Potassium Level (test code = 2823-3) 4.1 3.5-5.1 [facility] DistrictChloride Dssoj6896-62-68 15:18:00* Test Item Value Reference Range Interpretation Comments Chloride Level (test code = 2075-0) 102 98-107 [facility] DistrictCarbon Dioxide Mdfgb3125-67-88 15:18:00* Test Item Value Reference Range Interpretation Comments Carbon Dioxide Level (test code = 2028-9) 27 -29 [facility] DistrictAnion Hrp5896-49-17 15:18:00* Test Item Value Reference Range Interpretation Comments Anion Gap (test code = 86558-4) 16.1 8-16 H [facility] DistrictBlood Urea Kgtlcedd2335-11-30 15:18:00* Test Item Value Reference Range Interpretation Comments Blood Urea Nitrogen (test code = 3094-0) 17 7-26 [facility] DistrictCreatinine2018-03-06 15:18:00* Test Item Value Reference Range Interpretation Comments Creatinine (test code = 2160-0) 1.12 0.57-1.11 H [facility] DistrictBUN/Creatinine Mljhs8518-99-07 15:18:00* Test Item Value Reference Range Interpretation Comments BUN/Creatinine Ratio (test code = 3097-3) 15 - [facility] DistrictEstimat Glomerular Filtration Rate 2017-06-25 15:18:00* Test Item Value Reference Range Interpretation Comments Estimat Glomerular Filtration Rate (test code = 67680-6) 59 >60 L Ranges were taken from the National Kidney Disease Education Program and the [facility] literature.Reference ranges:60 or greater: Heejap41-55 ( for 3 consecutive months): Chronic kidney disease 15 or less: Kidney failureBallinger Memorial Hospital DistrictGlucose Wvmew7409-67-41 15:18:00* Test Item Value Reference Range Interpretation Comments Glucose Level (test code = DXH6888) 100 74-118 [facility] DistrictCalcium Tsjxr8452-32-79 15:18:00* Test Item Value Reference Range Interpretation Comments Calcium Level (test code = 15680-5) 9.2 8.4-10.2 [facility] DistrictTotal Skcusehvj0138-45-81 15:18:00* Test Item Value Reference Range Interpretation Comments Total Bilirubin (test code = 1975-2) 0.5 0.2-1.2 [facility] DistrictAspartate Amino Transf (AST/SGOT) 2017-06-25 15:18:00* Test Item Value Reference Range Interpretation Comments Aspartate Amino Transf (AST/SGOT) (test code = Aspartate Amino Transf (AST/SGOT)) 23 5-34 [facility] DistrictAlanine Aminotransferase (ALT/SGPT) 2017-06-25 15:18:00* Test Item Value Reference Range Interpretation Comments Alanine Aminotransferase (ALT/SGPT) (test code = 1742-6) 20 0-55 [facility] DistrictTotal Hgbhkzu3520-83-73 15:18:00* Test Item Value Reference Range Interpretation Comments Total Protein (test code = 2885-2) 8.1 6.5-8.1 [facility] DistrictAlbumin2018-03-06 15:18:00* Test Item Value Reference Range Interpretation Comments Albumin (test code = 1751-7) 3.8 3.5-5.0 [facility] DistrictGlobulin2018-03-06 15:18:00* Test Item Value Reference Range Interpretation Comments Globulin (test code = 90539-2) 4.3 2.3-3.5 H [facility] DistrictAlbumin/Globulin Junzp3277-94-40 15:18:00 * Test Item Value Reference Range Interpretation Comments Albumin/Globulin Ratio (test code = 1759-0) 0.9 0.8-2.0 [facility] DistrictAlkaline Rbdbkgpnsyh1882-49-35 15:18:00* Test Item Value Reference Range Interpretation Comments Alkaline Phosphatase (test code = 6768-6) 85 40-150 [facility] DistrictCreatine Fhrpdj6213-99-96 15:18:00* Test Item Value Reference Range Interpretation Comments Creatine Kinase (test code = 2157-6) 163 29-168 [facility] DistrictProthrombin Moyk6544-32-51 15:06:00* Test Item Value Reference Range Interpretation Comments Prothrombin Time (test code = 5902-2) 12.2 11.9-14.5 [facility] DistrictProthromb Time International Ratio 2017-06-25 15:06:00* Test Item Value Reference Range Interpretation Comments Prothromb Time International Ratio (test code = 6301-6) 0.98 Oral Anticoagulant Therapy INR Values:1. Low Intensity Therapy 1.5 - 2.02 . Moderate Intensity Therapy 2.0 - 3.03. High Intensity Therapy(1) 2.5 - 3. 54. High Intensity Therapy(2) 3.0 - 4.05. Panic Value INR > 5.0 [facility] DistrictActivated Partial Thromboplast Time 2017-06-25 15:06:00* Test Item Value Reference Range Interpretation Comments Activated Partial Thromboplast Time (test code = 99276-5) 25.5 23.8-35.5 [facility] DistrictWhite Blood Lzihw3077-56-71 14:47:00* Test Item Value Reference Range Interpretation Comments White Blood Count (test code = 6690-2) 9.16 4.8-10.8 [facility] DistrictRed Blood Faafc5347-38-19 14:47:00* Test Item Value Reference Range Interpretation Comments Red Blood Count (test code = 789-8) 5.23 3.6-5.1 H [facility] DistrictHemoglobin2018-03-06 14:47:00* Test Item Value Reference Range Interpretation Comments Hemoglobin (test code = 86907-1) 12.9 12.0-16.0 [facility] DistrictHematocrit2018-03-06 14:47:00* Test Item Value Reference Range Interpretation Comments Hematocrit (test code = 4544-3) 40.6 34.2-44.1 [facility] DistrictMean Corpuscular Wolhet7675-32-88 14:47:00* Test Item Value Reference Range Interpretation Comments Mean Corpuscular Volume (test code = 787-2) 77.6 81-99 L [facility] DistrictMean Corpuscular Bmeucauhkk2842-83-20 14:47:00* Test Item Value Reference Range Interpretation Comments Mean Corpuscular Hemoglobin (test code = 785-6) 24.7 28-32 L [facility] DistrictMean Corpuscular Hemoglobin Concent 2017-06-25 14:47:00* Test Item Value Reference Range Interpretation Comments Mean Corpuscular Hemoglobin Concent (test code = 786-4) 31.8 31-35 [facility] DistrictRed Cell Distribution Xzuxn6194-00-93 14:47:00* Test Item Value Reference Range Interpretation Comments Red Cell Distribution Width (test code = 70450-5) 15.7 11.7 -14.4 H [facility] DistrictPlatelet Deknx9695-12-31 14:47:00* Test Item Value Reference Range Interpretation Comments Platelet Count (test code = 777-3) 233 140-360 [facility] DistrictNeutrophils (%) (Auto)2017-06-25 14:47:00 * Test Item Value Reference Range Interpretation Comments Neutrophils (%) (Auto) (test code = 10071-1) 57.4 38.7-80.0 [facility] DistrictLymphocytes (%) (Auto)2017-06-25 14:47:00 * Test Item Value Reference Range Interpretation Comments Lymphocytes (%) (Auto) (test code = 736-9) 30.8 18.0-39.1 [facility] DistrictMonocytes (%) (Auto)2017-06-25 14:47:00* Test Item Value Reference Range Interpretation Comments Monocytes (%) (Auto) (test code = 5905-5) 8.5 4.4-11.3 [facility] DistrictEosinophils (%) (Auto)2017-06-25 14:47:00 * Test Item Value Reference Range Interpretation Comments Eosinophils (%) (Auto) (test code = 713-8) 2.7 0.0-6.0 [facility] DistrictBasophils (%) (Auto)2017-06-25 14:47:00* Test Item Value Reference Range Interpretation Comments Basophils (%) (Auto) (test code = 706-2) 0.3 0.0-1.0 [facility] DistrictIM GRANULOCYTES %2017-06-25 14:47:00* Test Item Value Reference Range Interpretation Comments IM GRANULOCYTES % (test code = IM GRANULOCYTES %) 0.3 0.0- 1.0 [facility] DistrictNeutrophils # (Auto)2017-06-25 14:47:00* Test Item Value Reference Range Interpretation Comments Neutrophils # (Auto) (test code = 751-8) 5.3 2.1-6.9 [facility] DistrictLymphocytes # (Auto)2017-06-25 14:47:00* Test Item Value Reference Range Interpretation Comments Lymphocytes # (Auto) (test code = 95804-8) 2.8 1.0-3.2 [facility] DistrictMonocytes # (Auto)2017-06-25 14:47:00* Test Item Value Reference Range Interpretation Comments Monocytes # (Auto) (test code = 742-7) 0.8 0.2-0.8 [facility] DistrictEosinophils # (Auto)2017-06-25 14:47:00* Test Item Value Reference Range Interpretation Comments Eosinophils # (Auto) (test code = 711-2) 0.3 0.0-0.4 [facility] DistrictBasophils # (Auto)2017-06-25 14:47:00* Test Item Value Reference Range Interpretation Comments Basophils # (Auto) (test code = 704-7) 0.0 0.0-0.1 [facility] DistrictAbsolute Immature Granulocyte (auto 2017-06-25 14:47:00* Test Item Value Reference Range Interpretation Comments Absolute Immature Granulocyte (auto (corey t code = Absolute Immature Granulocyte (auto) 0.03 0-0.1 [facility] DistrictUrine ZWE7722-05-71 14:22:00* Test Item Value Reference Range Interpretation Comments Urine WBC (test code = 5821-4) NONE 0-5 [facility] DistrictUrine TDG4400-12-06 14:22:00* Test Item Value Reference Range Interpretation Comments Urine RBC (test code = 11849-1) NONE 0-5 [facility] DistrictUrine Equhgeer5865-54-60 14:22:00* Test Item Value Reference Range Interpretation Comments Urine Bacteria (test code = 34964-0) NONE NONE [facility] DistrictUrine Epithelial Dwpnd9726-44-55 14:22:00 * Test Item Value Reference Range Interpretation Comments Urine Epithelial Cells (test code = 66056-8) FEW NONE [facility] DistrictUrine Epwzi3142-36-89 14:06:00* Test Item Value Reference Range Interpretation Comments Urine Color (test code = 5778-6) YELLOW YELLOW [facility] DistrictUrine Qvubexl1653-17-78 14:06:00* Test Item Value Reference Range Interpretation Comments Urine Clarity (test code = 64899-4) CLEAR CLEAR [facility] DistrictUrine Specific Duxlgqg7141-34-27 14:06:00 * Test Item Value Reference Range Interpretation Comments Urine Specific [place] (test code = 5811-5) 1.010 1.010-1.02 5 [facility] DistrictUrine oR2822-14-30 14:06:00* Test Item Value Reference Range Interpretation Comments Urine pH (test code = 68883-4) 6.5 5-7 [facility] Leukocyte Dpxzmbfg4612-70-60 14:06:00* Test Item Value Reference Range Interpretation Comments Urine Leukocyte Esterase (test code = 5799-2) NEGATIVE NEGATIVE [facility] DistrictUrine Ibmsztl6953-95-93 14:06:00* Test Item Value Reference Range Interpretation Comments Urine Nitrite (test code = 79529-2) NEGATIVE NEGATIVE [facility] DistrictUrine Iltekez1759-47-96 14:06:00* Test Item Value Reference Range Interpretation Comments Urine Protein (test code = 5804-0) NEGATIVE NEGATIVE [facility] DistrictUrine Glucose (UA)2017-06-25 14:06:00* Test Item Value Reference Range Interpretation Comments Urine Glucose (UA) (test code = 2349-9) NEGATIVE NEGATIVE [facility] DistrictUrine Pludzen7894-20-22 14:06:00* Test Item Value Reference Range Interpretation Comments Urine Ketones (test code = 14580-9) NEGATIVE NEGATIVE [facility] DistrictUrine Ngsopurssfca4977-84-93 14:06:00* Test Item Value Reference Range Interpretation Comments Urine Urobilinogen (test code = 60753-7) 0.2 0.2-1 [facility] DistrictUrine Egnguquai4749-98-97 14:06:00* Test Item Value Reference Range Interpretation Comments Urine Bilirubin (test code = 1978-6) NEGATIVE NEGATIVE [facility] DistrictUrine Wrhst0131-53-31 14:06:00* Test Item Value Reference Range Interpretation Comments Urine Blood (test code = 96241-7) NEGATIVE NEGATIVE [facility] DistrictU[facility] Qebor5013-48-58 20:15:00* Test Item Value Reference Range Interpretation Comments Urine Mucus (test code = 8247-9) FEW RARE H [facility] DistrictAmylase Edwnk2114-12-63 20:07:00* Test Item Value Reference Range Interpretation Comments Amylase Level (test code = 1798-8) 76 25-125 [facility] DistrictLipase2017-10-03 20:07:00* Test Item Value Reference Range Interpretation Comments Lipase (test code = 3040-3) 21 8-78 [facility] DistrictCT [facility]IN WO [facility] [address] [address] Patient Name: GHANSHYAM SCHROEDER MR #: [id number] : 1950 Age/Sex: 66/F Req #: [id number] Adm Physician: Ordered by: YANET COATS DIRECTOR OF CATERING Report #: [id number] Location: Room/Bed: Procedure: [id number] CT/CT BRAIN WO Exam Date: 06/25/17 Exam [...] 3:14 PM Dictated By: NANCY WILLAMS MD [facility] Signed By: NANCY WILLAMS MD on 06/25/171513 Transcribed By: BRYANT on 06/25 1514 COPY TO: YANET COATS NP CT ABDOMEN/PELVIS [place] [address] Patient Name: GHANSHYAM SCHROEDER MR #: [id number] : 0 1950 Age/Sex: 66/F Req #: [id number] Adm Physician: Ordered by: MELIA SCHULTZ MD Report #: [id number] [facility]: [facility]/Bed: Procedure: [id number] CT/CT ABDOMEN/PELVIS WO Exam Date: 01/22/17 Exam [...] 10:13 PM Dictated By: WILLIAM AGUILAR MD [facility] Signed By: WILLIAM AGUILAR MD on 01/22/172212 Transcribed By: BRYANT on 01/22/172212 COPY TO: MELIA SCHULTZ MD
[2020-01-26 08:19] LABS: ALBUMIN 3.5 g/dL (3.5-5.0); CREATININE, SERUM 1.26 mg/dL (0.57-1.11)
--- NOTE | 2020-01-26 08:37 | Diagnostic Imaging Report ---
Examination: CT BRAIN WO History:^N ^Dizziness ^[id number] ^0800 Comparison studies:Head CT performed September 25, 2019 Technique: Axial images were obtained from the skull base to the vertex. Coronal and sagittal images reconstructed from the axial data. Dose modulation, iterative reconstruction, and/or weight based adjustment of the mA/kV was utilized to reduce the radiation dose to as low as reasonably achievable. Intravenous contrast: None Findings: Scalp: No abnormalities. Bones: No fractures, blastic or lytic lesions. Brain sulci: Appropriate for age. Ventricles: Normal in size and configuration. No hydrocephalus. Extra-axial space: No abnormalities. 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 No masses, hemorrhage, or acute or chronic cortical based vascular insults.. Sellar/suprasellar region: No abnormalities. Craniocervical junction: Patent foramen magnum. No Chiari one malformation. Incidental findings: None. Impression: No new or acute intracranial abnormalities when compared to prior head CT performed September 25, 2019. Unchanged chronic lacunar infarct in the right caudate head. Signed by: Dr. Eileen Brandon M.D. on 01/26/2020 8:34 AM
== END 2020-01-26 09:12 | disposition home or self-care (01) ==
LOC: ER 07:36
DX: R42 Dizziness and giddiness (principal); E11.65 Type 2 diabetes mellitus with hyperglycemia; I10 Essential (primary) hypertension; J44.9 Chronic obstructive pulmonary disease, unspecified; E78.5 Hyperlipidemia, unspecified; Z85.3 Personal history of malignant neoplasm of breast
CPT/HCPCS: 36415; 70450; 80053; 84484; 85025; 85610; 93005; 99284; J8597; Q0162

== ENCOUNTER 2020-02-06 14:07 | Observation (INO) | payer OTHER, MEDICARE ==
[~2020-02-06] VITALS: Ht 162.6 cm; Wt 92.5 kg
--- OUTSIDE RECORDS SUMMARY | 2020-02-06 14:26 | XMS REPORT | Clinical Summary ---
Author Author [facility] Address Unknown Phone Unavailable Care Team Providers Care Rehab Trainer Name Role Phone Mikal Shaver PCP Allergies Comments Active Allergy Reactions Severity Noted Date hallucinations Zolpidem Rash High 09/10/2014 hallucinates Codeine Rash High 09/10/2014 Hydrocortisone Rash High 09/10/2014 Influenza Virus Vaccines Hives High 09/10 Iodine And Iodide Hives High 09/10/2014 Containing Products Letrozole Analogues Itching 01/31/2019 Oxycodone Rash High 09/10/2014 Oxycodone 12/28/2015 Kiq-Obmwmsnlq-Eay Ketorolac Hives High 09/10/2014 Whole arm swells [...] mg total) 9 tablet by mouth daily. 03/05/2019 aspirin 81 MG EC tablet Take 1 tablet 30 tablet 0 (81 mg total) 9 by mouth daily for 30 days. 03/05/2019 amLODIPine (NORVASC) 10 Take 1 tablet 30 tablet 0 MG tablet (10 mg total) 9 by mouth daily for 30 days. Active Problems Problem Noted Date Acute angina 01/30/2019 Chest pain 09/10/2014 Social History Date Tobacco Use Types Packs/Day Years Used Never Smoker Smokeless Tobacco: Never Used Drinks/Week oz/Week Comments Alcohol Use No Sex Assigned at Date Recorded Not on file Last Filed Vital Signs Not on file Plan of Treatment Not on file Procedures Comments Procedure Name Priority Date/Time Associated Diag nosis RHYTHM STRIP - SCAN 02/09/2019 10:24 AM CDT after 02/05/2019 Results * RHYTHM STRIP - SCAN (02/09/2019 10:24 AM CDT) Narrative Performed At This result has an attachment that is n ot available. after 02/05/2019 Insurance Type Payer Benefit Subscriber ID Effective Phone Address Plan / Dates Group HMO/POS [facility] [id number] CARE POS [employer] CHOICE [id number] Advance Directives For more information, please contact: [phone] Date Inactivated Comments Code Status Date Activated 02/02/2019 9:30 PM Full Code 01/30/2019 4:46 PM This code status was determined by: Patient 12/29/2015 11:35 PM Full Code 12/28/2015 4:51 PM This code status was determined by: Patient 09/11/2014 1:08 AM Full Code 09/10/2014 4:13 PM This code status was determined by: Patient
--- OUTSIDE RECORDS SUMMARY | 2020-02-06 14:26 | XMS REPORT | Continuity of Care Document ---
Author Author [facility] [employer] Address Unknown Phone Unavailable Care Team Providers Care Field Installer Name Role Phone Aggios Information [facility] Unavailable Un available Problems Problem Status Onset Date Classification Date Reported Comments Source Hypertension Active 09/09/2012 [facility] Asthma Active 09/09/2012 [facility] Urinary Tract Infection Active 09/09/2012 [facility] Type 2 Diabetes Mellitus - Uncomplicated, Uncontrolled Active 09/09/2012 [facility] Mixed Hyperlipoproteinemia Act ricardo 09/09/2012 [facility] Medications Medication Details Route Status Patient Instructions Ordering Provider Order Date Source BD Pen Needle Mini U/F 31G X 5 MM Miscellaneous ; Start Date: 08/28/2012 (Active) Active 08/28/2012 [facility] Pen [place] 3/16" 31G X 5 MM Miscellaneous ; Start Date: 08/09/2012 (Active) Active 08/09/2012 [facility] Janumet XR 50-1000 MG Oral Tablet Extend ed Release 24 Hour ; Start Date: 08/09/2012 (Active) Active 08/09/2012 [facility] Lunesta 3 MG Oral Tablet ; Sta rt Date: 08/09/2012 (Active) Active 08/09/2012 [facility] Levemir FlexPen 100 UNIT/ML Subcutaneous Solution ; Start Date: 07/04/2012 (Active) Active 07/04/2012 [facility] Gabapentin 300 MG Oral Capsule ; Start Date: 05/08/2012 (Active) Active 05/08/2012 [facility] Letrozole 2.5 MG Oral Tablet ; Start Date: 05/08/2012 (Active) Active 05/08/2012 [facility] TraMADol HCl 50 MG Oral Tablet ; Start Date: 05/08/2012 (Active) Active 05/08/2012 [facility] Benadryl Allergy 25 MG Oral Tablet ; Start Date: 05/08/2012 (Active) Active 05/08/2012 [facility] Citalopram Hydrobromide 20 MG Oral Tablet ; Start Date: 05/08/2012 (Active) Active 05/08/2012 [facility] Meloxicam 7.5 MG Oral Tablet ; Start Date: 05/08/2012 (Active) Active 05/08/2012 [facility] PredniSONE 20 MG Oral Tablet ; Start Date: 05/08/2012 (Active) Active 05/08/2012 [facility] Restoril 15 MG Oral Capsule ; Start Date: 05/08/2012 (Active) Active 05/08/2012 [facility] Cefdinir 300 MG Oral Capsule ; Start Date: 05/08/2012 (Active) Active 05/08/2012 [facility] Metoprolol Succinate ER 25 MG Oral Table t Extended Release 24 Hour ; Start Date: 05/08/2012 (Active) Active 05/08/2012 [facility] Marco 5-20 MG Oral Tablet (Act ricardo) Active [facility] Allergies, Adverse Reactions, Alerts Substance Category Reaction Severity Reaction type Status Date Reported Comments Source Codeine Derivatives drug aller gy drug aller gy Active [facility] Hydrocodone-Acetaminophen TABS drug allergy drug aller gy Active [facility] Ambien TABS drug allergy drug allergy Active [facility] Iodine SOLN drug allergy drug allergy Active [facility] Percodan TABS drug allergy drug allergy Active [facility] Lortab TABS drug allergy drug allergy Active [facility] Fluzone INJ drug allergy drug allergy Active [facility] Immunizations No Data Provided for This [...] ADM Date DC Date Status Source AUDIT [id number] 05/08/2012 05/09/2012 [facility] AUDIT [id number] 06/06/2012 06/06/2012 [facility] EST, Provi aster: MARIFER BERNABE, Status: Pen, Time: 1:45 PM [id number] 06/28/19 13 06/06/2012 [facility] CLARKE Provi aster: FRANCESCA BECK, Status: Pen, Time: 2:00 PM [id number] 06/28/19 13 06/06/2012 [facility] AUDIT [id number] 08/29/2012 08/29/2012 [facility] AUDIT [id number] 09/05/2012 09/06/2012 [facility] AUDIT [id number] 09/09/2012 09/09/2012 [facility] E30, Provi aster: EDYTA CASTILLO, Status: Pen, Time: 2:15 PM [id number] 10/22/19 13 09/09/2012 [facility] Procedures No Data Provided for This Section Assessment and Plan No Data Provided for This Section Plan of Care Plan of Care Date Source [QLH] MICROALBUMIN, RANDOM URINE (W/CREA TININE) 09/05/2012 Routine 09/06/2012 [facility] Social History Social History Date Source Never Drank Alcohol (Active) Marital History - Single (Active) Never A Smoker (Active) 09/09/2012 [facility] Family History Value Date [place] Family history of Hypertension (V17.49); (Active) Family history of Diabetes Mellitus (V18.0); (Active) 09/09/2012 [facility] Family history of Diabetes Mellitus (V18 .0); (Active) Family history of Hypertension (V17.49); (Active) 09/06/2012 [facility] Family history of Hypertension (V17.49); (Active) Family history of Diabetes Mellitus (V18.0); (Active) 08/29/2012 [facility] Advance Directives Order Name Results Value Date Source Advance Directives Advance Dir ectives No Advance Directives available. 09/09/2012 [facility] Advance Directives Advance Dir ectives No Advance Directives available. 09/06/2012 [facility] Advance Directives Advance Dir ectives No Advance Directives available. 08/29/2012 [facility] Advance Directives Advance Dir ectives No Advance Directives available. 06/06/2012 [facility] Advance Directives Advance Dir ectives No Advance Directives available. 05/09/2012 [facility] Functional Status No Data Provided for This Section
--- OUTSIDE RECORDS SUMMARY | 2020-02-06 14:27 | XMS REPORT | Continuity of Care Document ---
Author Author [facility] t Organization [facility] Address [address] [place] [address] Phone Unavailable Care Team Providers Care Marketing Sales Manager Name Role Phone Shay GREENWOOD PCP Shay Mckinley Attphys Unavailable Cesar SUE, Iraj Armstrong Attphys Yasmany MARINA Attphys Unavailable Flores SUE, Elvira Saleh Attphys [phone] Paula SCHULTZ Attphys Unavailable Dennys RODRIGUEZ Attphys Unavailable Marissa SUE, Ludin Thorne Attphys [phone] TREVOR OLIVEIRA Attphys Unavailable MATT SNOW Attphys Unavailable Becky ZUNIGA Attphys Unavailable OSCAR [employer] Attphys Unavailable Ankita NEWMAN Attphys Unavailable Tab Ornelas Attphys Unavailable Sampson LUNA Attphys Unavailable LALO LOPEZ Admphys Unavailable [employer] Admphys Unavailable Payers Payer Name Policy Type Policy Number Effective Date Expiration Date [facility] [id number] 2018 00:00:00 [facility] Problems Condition Name Condition Details Condition Category Status Onset Date Resolution Date Last Treatment Date Treating Clinician Comments Source Acute angina Acute angina Disease Active 2019-01-30 00:00:00 [facility] Facial paresthesia Facial paresthesia Problem Active 2015-01-25 00:00:0 0 [facility] Weakness of right side of body Right sided weakness Problem Ac tive 2015-01-25 00:00:00 [facility] Chest pain Chest pain Disease Active 2014-09-10 00:00:00 [facility] Cervical myofascial strain Problem Active [facility] Sinusitis Problem Active [facility] Hypertension Hype rtension Active 09/09/2012 [facility] Problem Active 2012-09-09 07:37:42 [facility] Asthma Asth ma Active 09/09/2012 [facility] Problem Active 2012-09-09 07:37:42 Devan Mensah Urinary Tract Infection Urin betty Tract Infection Active 09/09/2012 [facility] Problem Active 2012-09-09 07:37: 42 [facility] Type 2 Diabetes Mellitus - Uncomplicated, Uncontrolled Type 2 Diabetes Mellitus - Uncomplicated, Uncontrolled Active 09/09/2012 [facility] Problem Active 2012-09-09 07:37:42 Lis Mensah Mixed Hyperlipoproteinemia Mix ed Hyperlipoproteinemia Active 09/09/2012 [facility] Problem Active 2012-09-09 07:37: 42 [facility] Allergies, Adverse Reactions, Alerts Allergy Name Allergy Type Status Severity Reaction(s) Onset Date Inacti ve Date Treating Clinician Comments Source Codeine Allergy to substance Active 2020-01-26 00:00:00 [facility] Hydrocodone Allergy to substance Active 2020-01-26 00:00:00 [facility] Aspirin Allergy to substance Active 2020-01-26 00:00:00 [facility] Zolpidem Allergy to substance Active Moderate HALLUCINATIONS 2020-01-26 00:00:00 [facility] Letrozole Allergy to substance Active Mild 2020-01-26 00:00:00 [facility] dulaglutide Allergy to substance Active Mild 2020-01-26 00:00:00 [facility] Letrozole Analogues Drug Allergy Active Itching 2019-01-31 00:00:0 0 [facility] Iodine Allergy to substance Active 2018-07-03 00:00:00 [facility] Oxycodone Allergy to substance Active 2018-07-03 00:00:00 [facility] ADHESIVE TAPE Allergy to substance Active 2016-02-05 00:00: 00 [facility] Oxycodone Edy-Brrjqkerz-Tjf Propensity to adverse reactions Active 2015-12-28 00:00:00 [facility] Zolpidem Drug Allergy Active Rash 2014-09-10 00:00:00 hallucinations [facility] Codeine Drug Allergy Active Rash 2014-09-10 00:00:00 hallucinates [facility] Hydrocortisone Drug Allergy Active Rash 2014-09-10 00:00:00 [facility] Influenza Virus Vaccines Drug Allergy Active Hives 2014-09-10 00: 00:00 [facility] Iodine And Iodide Containing Products Drug Allergy Active Hives 2014-09-10 00:00:00 [facility] Oxycodone Drug Allergy Active Rash 2014-09-10 00:00:00 [facility] Ketorolac Drug Allergy Active Hives 2014-09-10 00:00:00 [facility] Tuberculin Ppd Drug Allergy Active Severe 2014-09-10 00:00:00 Whole arm swells up [facility] Cetirizine Drug Allergy Active Rash 2014-09-10 00:00:00 [facility] Codeine Derivatives Codeine Derivatives Active [facility] Hydrocodone-Acetaminophen TABS Hydrocodone-Acetaminophen TABS Active [facility] Ambien TABS Ambien TABS Active [facility] Iodine SOLN Iodine SOLN Active [facility] Percodan TABS Percodan TABS Active [facility] Lortab TABS Lortab TABS Active [facility] Fluzone INJ Fluzone INJ Active [facility] Family History Family Member Diagnosis Comments Start Date Stop Date Source Unknown Family Member Family History 2012-08-29 07:36:24 2 07:36:24 [facility] Social History Social Habit Start Date Stop Date Quantity Comments Source Sex Assigned At [facility] Tobacco use and exposure 2019-02-02 00:00:00 2019-02-02 00:00:00 Betina foster used [facility] Alcohol intake 2019-02-02 00:00:00 2019-02-02 00:00:00 Current non-drinker of alcohol (finding) [facility] Shabbir foster Social History 2012-09-09 07:37:42 2012-09-09 07:37:42 [facility] Smoking Status Start Date Stop Date Source Never smoker [facility] Medications Ordered Medication Name Filled Medication Name Start Date Stop Da te Current Medication? Ordering Clinician Indication Dosage Frequency Signature (SIG) Comments Components Source Amoxicillin/Potassium Clav (Augmentin 875-125 Tablet) 1 Each TABLET Amoxicillin/Potassium Clav (Augmentin 875-125 Tablet) 1 Each TABLET 2019-12-31 13:34:00 Yes 875 Daily [facility] aspirin 81 MG EC tablet 2019-02-03 00:00:00 2019-03-05 23:59:00 No 81mg QD Take 1 tablet (81 mg total) by mouth daily for 30 days. [facility] amLODIPine (NORVASC) 10 MG tablet 2019-02-03 00:00:00 2018 23:59:00 No 10mg QD Take 1 tablet (10 mg total) by mouth thais ly for 30 days. [facility] FOLIC ACID/MULTIVITS-MIN/LUT (CENTRUM SILVER ORAL) 2019-01 19:30:38 Yes 1{tbl} QD Take 1 tablet by mouth daily. [facility] cholecalciferol, vitamin D3, 1,000 unit capsule 2019-02-02 19:30 :38 Yes 1000U QD Take 1,000 Units by mouth daily. [facility] letrozole (FEMARA) 2.5 mg tablet 2019-02-02 19:30:38 Yes 2.5mg QD Take 2.5 mg by mouth daily. [facility] diphenhydrAMINE (BENADRYL) 25 mg capsule 2019-02-02 19:30:38 Yes 25mg Take 25 mg by mouth every night as needed for Itching (also for itching as well as sleeep aid). [facility] linagliptin 5 mg Tab 2019-02-02 19:30:38 Yes 5mg QD Take 5 mg by mouth nightly . [facility] insulin aspart (NOVOLOG) 100 unit/mL In 2019-02-02 19:30:38 Yes 15U Inject 15 Units subcutaneously 3 (three) times daily with meals. [facility] insulin detemir (LEVEMIR) 100 unit/mL injection 2019-02-02 19:30 :38 Yes 45U QD Inject 45 Units subcutaneously daily. [facility] DULoxetine (CYMBALTA) 30 MG capsule 2019-02-02 19:30:38 Yes diabetic peripheral neuropathy 30mg QD Take 30 mg by mouth nightly. [facility] melatonin 3 mg Tab tablet 2019-02-02 19:30:38 Yes Take by mouth. [facility] insulin degludec (TRESIBA FLEXTOUCH U-200) 200 unit/mL (3 mL ) In 2019-02-02 19:30:38 Yes Inject subcutaneously. [facility] ranolazine (RANEXA) 1,000 mg SR tablet 2019-02-02 00:00:00 Yes 1000mg Q.5D Take 1 tablet (1,000 mg total) by mouth 2 (two) times daily. [facility] gabapentin (NEURONTIN) 600 MG tablet 2019-02-02 00:00:00 Ye s 600mg QD Take 1 tablet (600 mg total) by mouth nightly. [facility] metoprolol (TOPROL-XL) 50 MG 24 hr tablet 2019-02-02 00:00:00 Yes 50mg QD Take 1 tablet (50 mg total) by mouth daily. [facility] hydroCHLOROthiazide (HYDRODIURIL) 50 MG tablet 2019-02-02 00:00: 00 Yes 50mg QD Take 1 tablet (50 mg total) by mouth daily. [facility] Sulfamethoxazole/Trimethoprim (Bactrim Ds Tablet) 1 Ea ch TABLET Sulfamethoxazole/Trimethoprim (Bactrim Ds Tablet) 1 Each TABLET 2018-07-03 14:44:00 Yes 1 Twice A Day [facility] Aspirin (Aspirin Ec) 81 Mg TABLET. Aspirin (Aspirin Ec) 81 Mg TABLET. 2015-01-27 10:39:00 2018-07-03 00:00:00 No 81 Daily [facility] Cefuroxime Axetil (Cefuroxime) 250 Mg TABLET Cefuroxim e Axetil (Cefuroxime) 250 Mg TABLET 2015-01-27 10:37:00 2018-07-03 00:00:00 No 250 Every 12 Hours [facility] Mometasone Furoate (Nasonex) 17 Gm SPRAY Mometasone Fu roate (Nasonex) 17 Gm SPRAY 2015-01-27 10:37:00 2018-07-03 00:00:00 No 2 Shahnaz y [facility] Marco 5-20 MG Oral Tablet 2012-09-09 07:37:42 Yes (Active) [facility] BD Pen Needle Mini U/F 31G X 5 MM Miscellaneous 2012-08-28 05:00 :00 Yes ; Start Date: 08/28/2012 (Active) [facility] Pen [place] 3/16" 31G X 5 MM Miscellaneous 2012-08-09 [...] 06:00:00 Yes ; Start Date: 05/08/2012 (Active) Meryc Mens[facility] TraMADol HCl 50 MG Oral Tablet 2012-05-08 06:00:00 Yes ; Start Date: 05/08/2012 (Active) [facility] Benadryl Allergy 25 MG Oral Tablet 2012-05-08 06:00:00 Yes ; Start Date: 05/08/2012 (Active) [facility] Citalopram Hydrobromide 20 MG Oral Tablet 2012-05-08 [...] A Day as needed for Muscle Spasms [facility] Eplerenone (Inspra) 50 Mg TABLET Eplerenone (Inspra) 50 Mg TABLET Yes 50 Daily [facility] Hydrochlorothiazide Hydrochlorothiazide Yes 50 Daily [facility] Insulin Aspart (Novolog) 100 Units/1 Ml INJ Insulin As part (Novolog) 100 Units/1 Ml INJ Yes [facility] Insulin Detemir (Levemir 3ML Flexpen*) 100 Units/Ml IN J Insulin Detemir (Levemir 3ML Flexpen*) 100 Units/Ml INJ Yes 30 Bedtime [facility] Linagliptin (Tradjenta) 5 Mg TABLET Linagliptin (Tradjenta) 5 Mg TABL ET Yes 5 Daily [facility] Metoprolol Tartrate Metoprolol Tartrate Yes [address] [facility] Verapamil Hcl (Verapamil Er) 120 Mg CAP24H.PEL Verapam il Hcl (Verapamil Er) 120 Mg CAP24H.PEL Yes 360 Daily [facility] Acetaminophen/Chlorpheniramine (Coricidin Hbp Tablet) 1 Each TABLET Acetaminophen/Chlorpheniramine (Coricidin Hbp Tablet) 1 Each TABLET 2018-07-03 00:00:00 No 2 Q4hrs [facility] Albuterol Sulfate (Proventil Hfa) 6.7 Gm HFA.AER.AD Al buterol Sulfate (Proventil Hfa) 6.7 Gm HFA.AER.AD 2018-07-03 00:00:00 No [facility] Gabapentin Gabapentin 2018-07-03 00:00:00 No 600 Thr ee Times A Day [facility] Isosorbide Mononitrate (Isosorbide Mononitrate Er) 30 Mg TAB.ER.24H Isosorbide Mononitrate (Isosorbide Mononitrate Er) 30 Mg TAB.ER.24H 201 12-23-13 00:00:00 No 30 Daily [facility] Letrozole Letrozole 2018-07-03 00:00:00 No 2.5 Daily [facility] Linagliptin (Tradjenta) 5 Mg TABLET Linagliptin (Tradjenta) 5 Mg TABLET 2018-07-03 00:00:00 No 5 Daily [facility] Losartan Potassium Losartan Potassium 2018-07-03 00:00:00 No 100 Daily [facility] Verapamil Hcl (Verapamil Er) 120 Mg CAP24H.PEL Verapam il Hcl (Verapamil Er) 120 Mg CAP24H.PEL 2018-07-03 00:00:00 No 240 Daily [facility] Amlodipine Bes/Olmesartan Med (Marco 5-40 Mg Tablet) 1 Each TABLET Amlodipine Bes/Olmesartan Med (Marco 5-40 Mg Tablet) 1 Each TABLET 00:00:00 No 1 Daily [facility] Citalopram Hydrobromide (Celexa) 20 Mg TABLET Citalopr am Hydrobromide (Celexa) 20 Mg TABLET 2015-01-25 00:00:00 No 20 Daily [facility] Eszopiclone (Lunesta) 3 Mg TABLET Eszopiclone (Lunesta) 3 Mg TAB LET 2015-01-25 00:00:00 No 3 Bedtime [facility] Ibuprofen (Motrin) 800 Mg TAB Ibuprofen (Motrin) 800 Mg TAB 2015-01-25 00:00:00 No 800 Three Times A Day [facility] Vital Signs Vital Name Observation Time Observation Value Comments Source Weight 2020-01-26 07:14:00 204 [lb_av] [facility] BMI (Body Mass Index) 2020-01-26 07:14:00 35.0 kg/m2 [facility] Weight 2019-12-31 09:45:00 204 [lb_av] [facility] BMI (Body Mass Index) 2019-12-31 09:45:00 35.0 kg/m2 [facility] Body Temperature 2019-09-26 00:29:00 98.3 [degF] [facility] Weight 2019-09-25 22:08:00 207 [lb_av] [facility] BMI (Body Mass Index) 2019-09-25 22:08:00 35.5 kg/m2 [facility] Procedures Procedure Date / Time Performed Performing Clinician [facility] e Computed tomography of brain without radiopaque contrast 2020-01 00:00:00 [facility] Computed tomography of maxillofacial area with contrast 00:00:00 [facility] Computed tomography of chest with contrast 2019-12-31 00:00:00 [facility] Computed tomography of brain without radiopaque contrast 2019-09 00:00:00 [facility] Computed tomography of cervical spine without contrast 5 00:00:00 [facility] Computed tomography of brain without radiopaque contrast 202 -11 00:00:00 MALOU RODRIGUEZ [facility] X-ray of chest, two views 2019-05-06 00:00:00 COLLEEN ANGUIANO [facility] RHYTHM STRIP - SCAN 2019-02-09 10:24:29 ProviderNayan [facility] Plan of Care Planned Activity Planned Date Details Comments Source Future Scheduled Test 2012-09-06 04:19:02 Plan of Care [code = 1877 6-5] [facility] Encounters Start Date/Time End Date/Time Encounter Type Admission Type Attendi [facility] Care Department Encounter ID Source 2020-01-26 07:36:00 2020-01-26 09:12:00 Departed Emergency Room 1 Yvon Mckinley [facility] [id number] [facility] 2020-01-21 09:44:30 2020-01-21 10:14:30 Office Visit Francisco Pearl [facility] [id number] 2019-12-31 10:04:00 2019-12-31 14:07:00 Departed Emergency Room 1 LILIBETH MARINA [facility] [id number] [facility] 2019-11-02 10:04:24 2019-11-02 10:24:24 [facility] [id number] 2019-09-25 22:03:00 2019-09-26 00:30:00 Departed Emergency Room 1 MELIA SCHULTZ [facility] [id number] [facility] 2019-07-01 17:54:00 2019-07-02 01:46:00 Departed Emergency Room 1 MALOU RODRIGUEZ [facility] [id number] [facility] 2019-06-03 15:46:01 2019-06-03 15:56:01 Office Visit Mati colon [facility] [id number] 2019-05-06 16:48:00 2019-05-06 19:10:00 Departed Emergency Room 1 TREVOR OLIVEIRA [facility] [id number] [facility] 2019-02-17 15:25:39 2019-02-17 16:44:34 Office Visit Francisco Pearl [facility] [id number] 2018-12-31 11:54:25 2018-12-31 12:48:48 Office Visit Francisco Pearl [facility] [id number] 2018-12-08 14:19:48 2018-12-08 15:04:06 Office Visit Francisco Pearl [facility] [id number] 2018-11-26 15:55:07 2018-11-26 16:05:07 Office Visit Mati colon [facility] [id number] 2018-07-03 10:13:00 2018-07-03 15:31:00 Departed Emergency Room 1 FLAKITOURBANOATUL [facility] [id number] [facility] 2017-06-25 12:19:00 2017-06-25 16:19:00 Departed Emergency Room ER BRAD NEWMAN [facility] [id number] [facility] 2017-01-29 09:14:00 2017-01-29 09:14:00 [facility] [id number] 2017-01-22 18:46:00 2017-01-22 23:01:00 Departed Emergency Room ER FIONA LUNA [facility] [id number] [facility] 2016-10-30 15:23:00 2016-10-30 15:23:00 Registered Emergency Room [facility] [id number] [facility] 2012-09-09 02:38:02 2012-09-09 02:37:42 Outpatient [facility]IE [facility] [id number] 2012-09-05 23:19:21 2012-09-05 23:19:02 Outpatient MHIE [facility] [id number] 2012-08-29 02:36:42 2012-08-29 02:36:24 Outpatient MHIE [facility]IE [id number] 2012-06-06 13:47:26 2012-06-06 13:47:25 Outpatient MHIE MHIE [id number] 2012-05-08 18:41:15 2012-05-08 18:40:59 Outpatient MHIE MHIE [id number] Results Test Description Test Time Test Comments Results Result Comments Source CT BRAIN WO 2020-01-26 08:32:00 [facility] [address] [place] [address] Patient Name: GHANSHYAM SCHROEDER MR #: [id number] : 1950 Age/Sex: 69/F Req #: [id number] Adm Physician: Ordered by: Yvon Mckinley MD Report #: [id number] Location: ER Room/Bed: Procedure: [id number] CT/CT BRAIN WO Exam Date: 01/26/20 Exam Time: 0800 REPORT STATUS: Signed Examination: CT BRAIN WO History: N Dizziness [id number] Comparison studies:Head CT performed September 25, 2019 Technique: Axial images were obtained from the skull base to the vertex. Coronal and sagittal images reconstructed from the axial data. Dose modulation, iterative reconstruction, and/or weight based adjustment of the mA/kV was utilized to reduce the radiation dose to as low as reasonably achievable. Intravenous contrast: None Findings: Scalp: No abnormalities. Bones: No fractures, blastic or lytic lesions. Brain sulci: Appropriate for age. Ventricles: Normal in size and configuration. No hydrocephalus. Extra-axial space: No abnormalities. 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 No masses, hemorrhage, or acute or chronic cortical based vascular insults.. Sellar/suprasellar region: No abnormalities. Craniocervical junction: Patent foramen magnum. No Chiari one malformation. Incidental findings: None. Impression: No new or acute intracranial abnormalities when compared to prior head CT performed September 25, 2019. Unchanged chronic lacunar infarct in the right caudate head. Signed by: Dr. Eileen Brandon M.D. on 01/26/2020 8:34 AM Dictated By: EILEEN ESCAMILLA MD 3 Transcribed By: BRYANT on 01/26/20833 COPY TO: YVON MCKINLEY MD Blood leukocytes automated count (number/volume) 2020-01-26 07:20:00 Test Item White Blood Count (test code = 6690-2) 6.42 4.8[facility]10.8 [facility] (number/volume)2020-01-26 07:20:00* Test Item Value Reference Range Interpretation Comments Red Blood Count (test code = 789-8) 5.10 3.6-5.1 [facility] measurement (moles/volume)2020-01-26 07:20:00* Test Item Value Reference Range Interpretation Comments Hemoglobin (test code = 45886-6) 12.5 12.0-16.0 [facility] hematocrit (volume fraction)2020-01-26 07:20:00* Test Item Value Reference Range Interpretation Comments Hematocrit (test code = 4544-3) 40.6 34.2-44.1 [facility] erythrocyte mean corpuscular [id number] 07:20:00* Test Item Value Reference Range Interpretation Comments Mean Corpuscular Volume (test code = 787-2) 79.6 81-99 [facility] eryth[facility] mean corpuscular hemoglobin (mass per erythrocyte)2020-01-26 07:20:00* Test Item Value Reference Range Interpretation Comments Mean Corpuscular Hemoglobin (test code = 785-6) 24.5 28-32 [facility] mean corpuscular hemoglobin concentration measurement (mass/volume)2020-01-26 07:20:00* Test Item Value Reference Range Interpretation Comments Mean Corpuscular Hemoglobin Concent (test code = 786-4) 30.8 31-35 [facility] CenterRDW [id number] 07:20:00* Test Item Value Reference Range Interpretation Comments Red Cell Distribution Width (test code = 74223-7) 14.9 11.7 -14.4 [facility] (count/volume)2020-01-26 07:20:00* Test Item Value Reference Range Interpretation Comments Platelet Count (test code = 777-3) 246 140-360 [facility]Autst[facility] segmented neutrophil count as percentage of total qcgnnchokq9062-01-36 07:20:00* Test Item Value Reference Range Interpretation Comments Neutrophils (%) (Auto) (test code = 03763-3) 55.6 38.7-80.0 [facility] blood lymphocyte count as percentage ot total [id number] 07:20:00* Test Item Value Reference Range Interpretation Comments Lymphocytes (%) (Auto) (test code = 736-9) 29.1 18.0-39.[address] [facility] monocyte count as percentage of total uzlbbirqfp2559-42-50 07:20:00* Test Item Value Reference Range Interpretation Comments Monocytes (%) (Auto) (test code = 5905-5) 9.5 4.4-11.3 [facility] blood eosinophil count as percentage of total [id number] 07:20:00* Test Item Value Reference Range Interpretation Comments Eosinophils (%) (Auto) (test code = 713-8) 4.8 0.0-6.0 [facility] Center[facility] blood basophil count as percentage of total ckkbsjaraq6668-69-69 07:20:00* Test Item Value Reference Range Interpretation Comments Basophils (%) (Auto) (test code = 706-2) 0.5 0.0-1.0 [facility] CenterFluoroscopic procedure less than one hour [id number] 07:20:00* Test Item Value Reference Range Interpretation Comments IM GRANULOCYTES % (test code = IM GRANULOCYTES %) 0.5 0.0- 1.0 [facility] neutrophil count 2020-01-26 07:20:00* Test Item Value Reference Range Interpretation Comments Neutrophils # (Auto) (test code = 751-8) 3.6 2.1-6.9 [facility] lymphocytes count (number/volume) 2020-01-26 07:20:00* Test Item Value Reference Range Interpretation Comments Lymphocytes # (Auto) (test code = 65538-3) 1.9 1.0-3.2 [facility] monocytes automated count (number/volume)2020-01-26 07:20:00* Test Item Value Reference Range Interpretation Comments Monocytes # (Auto) (test code = 742-7) 0.6 0.2-0.8 [facility] Center[facility] blood eosinophil count 2020-01-26 07:20:00* Test Item Value Reference Range Interpretation Comments Eosinophils # (Auto) (test code = 711-2) 0.3 0.0-0.4 [facility] CenterAutom[facility] blood basophil count (count/volume)2020-01-26 07:20:00* Test Item Value Reference Range Interpretation Comments Basophils # (Auto) (test code = 704-7) 0.0 0.0-0.1 [facility] CenterFluoroscopic procedure less than one hour [id number] 07:20:00* Test Item Value Reference Range Interpretation Comments Absolute Immature Granulocyte (auto (corey t code = Absolute Immature Granulocyte (auto) 0.03 0-0.1 [facility] CenterProthrombin time (PT) in platelet poor plasma by coagulation [id number] 07:20:00* Test Item Value Reference Range Interpretation Comments Prothrombin Time (test code = 5902-2) 12.9 11.9-14.5 [facility] CenterINR in Platelet poor plasma by Coagulation glylv6269-88-64 07:20:00* Test Item Value Reference Range Interpretation Comments Prothromb Time International Ratio (test code = 6301-6) 0.93 Oral Anticoagulant Therapy INR Values:1. Low Intensity Therapy 1.5 - 2.02 . Moderate Intensity Therapy 2.0 - 3.03. High Intensity Therapy(1) 2.5 - 3. 54. High Intensity Therapy(2) 3.0 - 4.05. Panic Value INR > 5.0 [facility] sodium measurement (moles/volume)2020-01-26 07:20:00* Test Item Value Reference Range Interpretation Comments Sodium Level (test code = 2951-2) 140 136-145 [facility]ere[facility] or plasma potassium measurement (moles/volume)2020-01-26 07:20:00* Test Item Value Reference Range Interpretation Comments Potassium Level (test code = 2823-3) 4.0 3.5-5.1 [facility]ere[facility] or plasma chloride measurement (moles/volume)2020-01-26 07:20:00* Test Item Value Reference Range Interpretation Comments Chloride Level (test code = 2075-0) 104 98-107 [facility]ererum or plasma carbon dioxide, total measurement (moles/volume)2020-01-26 07:20:00* Test Item Value Reference Range Interpretation Comments Carbon Dioxide Level (test code = 2027-) 29 22-29 [facility]ererum or plasma anion kgi1927-85-54 07:20:00* Test Item Value Reference Range Interpretation Comments Anion Gap (test code = 30822-7) 11.0 8-16 [facility]ere[facility] or plasma urea nitrogen measurement (mass/volume)2020-01-26 07:20:00* Test Item Value Reference Range Interpretation Comments Blood Urea Nitrogen (test code = 3094-0) 17 7-26 [facility]ere[facility] or plasma creatinine measurement (mass/volume)2020-01-26 07:20:00* Test Item Value Reference Range Interpretation Comments Creatinine (test code = 2160-0) 1.26 0.57-1.11 [facility]ererum or plasma urea nitrogen/creatinine mass sjise9033-44-62 07:20:00* Test Item Value Reference Range Interpretation Comments BUN/Creatinine Ratio (test code = 3097-3) 13 6-25 [facility] CenterEstimated glomerular filtration rate (GFR) yowbtycqxprza5010-70-61 07:20:00* Test Item Value Reference Range Interpretation Comments Estimat Glomerular Filtration Rate (test code = 277867228) 51 >60 Ranges were taken from the National Kidney Disease Education Program and the [facility] literature.Reference ranges:60 or greater: Uvqtsa86-82 ( for 3 consecutive months): Chronic kidney disease 15 or less: Kidney failureEnnis Regional Medical CenterGlucose yzpxofuntaf4921-89-30 07:20:00* Test Item Value Reference Range Interpretation Comments Glucose Level (test code = PPM8526) 133 74-118 [facility]ererum or plasma calcium measurement (mass/volume)2020-01-26 07:20:00* Test Item Value Reference Range Interpretation Comments Calcium Level (test code = 88733-4) 9.0 8.4-10.2 [facility]ererum or plasma total bilirubin measurement (mass/volume)2020-01-26 07:20:00* Test Item Value Reference Range Interpretation Comments Total Bilirubin (test code = 1975-2) 0.5 0.2-1.2 [facility] CenterFluoroscopic procedure less than one hour eigvnpzj9337-73-14 07:20:00* Test Item Value Reference Range Interpretation Comments Aspartate Amino Transf (AST/SGOT) (test code = Aspartate Amino Transf (AST/SGOT)) 14 5-34 [facility]ererum or plasma alanine aminotransferase measurement (enzymatic activity/volume)2020-01-26 07:20:00* Test Item Value Reference Range Interpretation Comments Alanine Aminotransferase (ALT/SGPT) (test code = 1742-6) 10 0-55 [facility]ererum or plasma protein measurement (mass/volume)2020-01-26 07:20:00* Test Item Value Reference Range Interpretation Comments Total Protein (test code = 2885-2) 6.9 6.5-8.1 [facility]ererum or plasma albumin measurement (mass/volume)2020-01-26 07:20:00* Test Item Value Reference Range Interpretation Comments Albumin (test code = 1751-7) 3.5 3.5-5.0 [facility] CenterPlasma globulin measurement (mass/volume) 2020-01-26 07:20:00* Test Item Value Reference Range Interpretation Comments Globulin (test code = 97022-3) 3.4 2.3-3.5 [facility]ererum or plasma albumin/globulin mass sspaz5349-78-73 07:20:00* Test Item Value Reference Range Interpretation Comments Albumin/Globulin Ratio (test code = 1759-0) 1.0 0.8-2.0 [facility]ererum or plasma alkaline phosphatase measurement (enzymatic activity/volume)2020-01-26 07:20:00* Test Item Value Reference Range Interpretation Comments Alkaline Phosphatase (test code = 6768-6) 77 40-150 [facility] CenterTroponin I measurement by highly sensitive enzyme fwzptuhywig0780-56-87 07:20:00* Test Item Value Reference Range Interpretation Comments Troponin I (test code = 37755-4) < 0.001 0-0.300 [facility] CenterCT MAX FAC/PARANASAL [id number] 13:11:00 [facility] [address] [place], [place] [address] Patient Name: GHANSHYAM SCHROEDER MR #: [id number] : 1950 Age/Sex: 69[id number] Req #: [id number] [facility] Physician: Ordered by: LILIBETH MARINA DO Report #: [id number] Location: ER Room/Bed: Procedure: [id number] CT/CT MA X FAC/PARANASAL W Exam Date: 12/31/19 Exam Time: 124 5 REPORT STATUS: Signed EXAMINAT ION: CT of the face HISTORY: 69-year-old female with sinusitis, cough, sin us pressure, shortness of breath COMPARISON: Head CT 09/25/2019 TECHNIQUE: M ultidetector helical axial images were acquired through the face with contrast . Intravenous contrast: 100 mL of Isovue-370 Dose modulation, iterative recons truction, and/or weight based adjustment of the mA/kV was utilized to reduce t he radiation dose to as low as reasonably achievable. FINDINGS: Bones: Unremarkable. Facial soft tissues: No mass or fluid collectio ns. No abnormal enhancement.. Paranasal sinuses and drainage pathways : Minimal mucosal inflammatory thickening and small possible retention cyst i n the right medial maxillary sinus wall. Otherwise the bilateral frontal, et hmoidal, sphenoid and maxillary sinuses are clear. The ostiomeatal units, fronto-nasal and spheno-ethmoidal recesses are clear. Orbits contents: Unremarkable. Nasal septum: Midline. Anatomic variations: No significant anatomic variations. Dentition: No acute abnormality of t he visualized teeth. Incidental findings: -Partially visualized atherosc lerotic calcification of the carotid bulbs with mild to moderate stenoses on t he right side. -Partially visualized degenerative changes of cervical spine wi th moderate canal stenoses at C5-C6. IMPRESSION: 1. Minimal mucosal thickening of the right maxillary sinus, otherwise the paranasal sinuses-path ways are clear without evidence of sinusitis. 2. No mass or polyp in the n dorene cavity. Signed by: Dr. Nancy Willams M.D. on 12/31/2019 1:18 PM Dictated By: NANCY WILLAMS MD 17 COPY TO: ANGELA MARINA DO CT CHEST [id number] 13:01:00 [place] [address] Patient Name: GHANSHYAM SCHROEDER MR #: [id number] : 1950 Age/Sex: 69/F Req #: [id number] Adm Physician: Ordered by: LILIBETH MARINA DO Report #: [id number] Location: ER Room/Bed: Procedure: [id number] CT/CT CH EST W Exam Date: 12/31/19 Exam Time: 1245 REPORT STATUS: Signed EXAM: CT Chest WITH contrast- Pulmonary Embolism Protocol INDICATION: Shortness of breath COMPARISON: Chest radiograph 05/06/2019 TECHNIQUE: Chest was scanned util izing a multidetector helical scanner from the lung apex through the level of the diaphragm after administration of IV contrast. Thin section reconstruction s were obtained with special concentration on the pulmonary arteries. Coronal and sagittal reformations were obtained. Pulmonary embolism protocol was perfo rmed. IV CONTRAST: 100 cc of Isovue 370 RADIATION DOSE : Total DLP: 498 mGy*cm Dose modulation, iterative reconstructi on, and/or weight based adjustment of the mA/kV was utilized to reduce the rad iation dose to as low as reasonably achievable. COMPLICATIONS : None FINDINGS: LINES/ TUBES: None. PULMONARY ARTERIES: No filli ng defect is identified within the pulmonary arteries to the segmental level. The subsegmental pulmonary arteries are not well opacified. Main pulmonary art germania measures 2.2 cm in diameter. LUNGS AND AIRWAYS: The central airways are patent. No focal consolidation or pulmonary edema. 3 mm right middle lobe pul monary nodule (series 3 image 58). PLEURA: The pleural spaces are clear. HEART AND MEDIASTINUM: The thyroid gland is normal. No mediastinal, hilar or axillary lymphadenopathy. The heart is normal in size.. There is no pericardial effusion. UPPER ABDOMEN: Status post cholecystectomy. No acute findings in the upper abdomen. BONES: The visualized bony thorax is within normal limits. SOFT TISSUES: Unremarkable. IMPRESSION: No pulmonary em bolism. No focal pneumonia or pulmonary edema. 3mm right middle lobe p ulmonary nodule. If the patient is low risk, no follow-up imaging is necessary . If the patient is high risk, chest CT at 12 months is optional. Signed by: Ronnie Coulter MD on 12/31/2019 1:08 PM Dictated By: RONNIE COULTER MD Elect ronically Signed By: RONNIE COULTER MD on 12/31/19 1308 Transcribed By: BRYANT on 12/31/19 1308 COPY TO: LILIBETH MARINA, DO Blood leukocytes automated count (number/volume)2019-12-31 11:00:00* Test Item Value Reference Range Interpretation Comments White Blood Count (test code = 6690-2) 8.67 4.8-10.8 [facility] CenterBlk[facility] erythrocytes automated count (number/volume)2019-12-31 11:00:00* Test Item Value Reference Range Interpretation Comments Red Blood Count (test code = 789-8) 5.56 3.6-5.1 [facility] CenterBlood hemoglobin measurement (moles/volume)2019-12-31 11:00:00* Test Item Value Reference Range Interpretation Comments Hemoglobin (test code = 90094-6) 13.3 12.0-16.0 [facility] CenterAutomated blood hematocrit (volume fraction)2019-12-31 11:00:00* Test Item Value Reference Range Interpretation Comments Hematocrit (test code = 4544-3) 43.9 34.2-44.1 [facility] CenterAutomated erythrocyte mean corpuscular hkvwcq7572-24-18 11:00:00* Test Item Value Reference Range Interpretation Comments Mean Corpuscular Volume (test code = 787-2) 79.0 81-99 [facility] CenterAutomated erythrocyte mean corpuscular hemoglobin (mass per erythrocyte)2019-12-31 11:00:00* Test Item Value Reference Range Interpretation Comments Mean Corpuscular Hemoglobin (test code = 785-6) 23.9 28-32 [facility] CenterAutomated erythrocyte mean corpuscular hemoglobin concentration measurement (mass/volume)2019-12-31 11:00:00* Test Item Value Reference Range Interpretation Comments Mean Corpuscular Hemoglobin Concent (test code = 786-4) 30.3 31-35 [facility] CenterRDW QpdYg-Adx1268-10-10 11:00:00* Test Item Value Reference Range Interpretation Comments Red Cell Distribution Width (test code = 11703-7) 15.7 11.7 -14.4 [facility] CenterAutomated blood platelet count (count/volume)2019-12-31 11:00:00* Test Item Value Reference Range Interpretation Comments Platelet Count (test code = 777-3) 241 140-360 [facility] CenterAutst. luke's hospitaled blood segmented neutrophil count as percentage of total jeklskbnrj1825-75-37 11:00:00* Test Item Value Reference Range Interpretation Comments Neutrophils (%) (Auto) (test code = 41889-2) 62.7 38.7-80.0 [facility] CenterAutomated blood lymphocyte count as percentage ot total ygcceqxuox5859-54-74 11:00:00* Test Item Value Reference Range Interpretation Comments Lymphocytes (%) (Auto) (test code = 736-9) 24.9 18.0-39.1 [facility] CenterAutomated blood monocyte count as percentage of total jgmhwmoswq8055-86-02 11:00:00* Test Item Value Reference Range Interpretation Comments Monocytes (%) (Auto) (test code = 5905-5) 7.6 4.4-11.3 [facility] CenterAutomated blood eosinophil count as percentage of total gkwnqoygyz2021-47-70 11:00:00* Test Item Value Reference Range Interpretation Comments Eosinophils (%) (Auto) (test code = 713-8) 4.0 0.0-6.0 [facility] CenterAutomated blood basophil count as percentage of total anehvwydbw6538-80-47 11:00:00* Test Item Value Reference Range Interpretation Comments Basophils (%) (Auto) (test code = 706-2) 0.3 0.0-1.0 [facility] CenterFluoroscopic procedure less than one hour hpjwpuox0307-21-24 11:00:00* Test Item Value Reference Range Interpretation Comments IM GRANULOCYTES % (test code = IM GRANULOCYTES %) 0.5 0.0- 1.0 [facility] CenterAutomated blood neutrophil count 2019-12-31 11:00:00* Test Item Value Reference Range Interpretation Comments Neutrophils # (Auto) (test code = 751-8) 5.4 2.1-6.9 [facility] CenterBlood lymphocytes count (number/volume) 2019-12-31 11:00:00* Test Item Value Reference Range Interpretation Comments Lymphocytes # (Auto) (test code = 51046-1) 2.2 1.0-3.2 [facility] CenterBlood monocytes automated count (number/volume)2019-12-31 11:00:00* Test Item Value Reference Range Interpretation Comments Monocytes # (Auto) (test code = 742-7) 0.7 0.2-0.8 [facility] CenterAutomated blood eosinophil count 2019-12-31 11:00:00* Test Item Value Reference Range Interpretation Comments Eosinophils # (Auto) (test code = 711-2) 0.4 0.0-0.4 [facility] CenterAutomated blood basophil count (count/volume)2019-12-31 11:00:00* Test Item Value Reference Range Interpretation Comments Basophils # (Auto) (test code = 704-7) 0.0 0.0-0.1 [facility] CenterFluoroscopic procedure less than one hour bnshdekw0412-33-95 11:00:00* Test Item Value Reference Range Interpretation Comments Absolute Immature Granulocyte (auto (corey t code = Absolute Immature Granulocyte (auto) 0.04 0-0.1 [facility] CenterProthrombin time (PT) in platelet poor plasma by coagulation xtbwo1657-07-18 11:00:00* Test Item Value Reference Range Interpretation Comments Prothrombin Time (test code = 5902-2) 11.7 11.9-14.5 [facility] CenterINR in Platelet poor plasma by Coagulation yxlls4866-77-56 11:00:00* Test Item Value Reference Range Interpretation Comments Prothromb Time International Ratio (test code = 6301-6) 0.82 Oral Anticoagulant Therapy INR Values:1. Low Intensity Therapy 1.5 - 2.02 . Moderate Intensity Therapy 2.0 - 3.03. High Intensity Therapy(1) 2.5 - 3. 54. High Intensity Therapy(2) 3.0 - 4.05. Panic Value INR > 5.0 [facility]ere[facility] or plasma sodium measurement (moles/volume)2019-12-31 11:00:00* Test Item Value Reference Range Interpretation Comments Sodium Level (test code = 2951-2) 143 136-145 [facility]ererum or plasma potassium measurement (moles/volume)2019-12-31 11:00:00* Test Item Value Reference Range Interpretation Comments Potassium Level (test code = 2823-3) 4.1 3.5-5.1 [facility]ererum or plasma chloride measurement (moles/volume)2019-12-31 11:00:00* Test Item Value Reference Range Interpretation Comments Chloride Level (test code = 2075-0) 108 98-107 [facility] Centererum or plasma carbon dioxide, total measurement (moles/volume)2019-12-31 11:00:00* Test Item Value Reference Range Interpretation Comments Carbon Dioxide Level (test code = 2028-9) 20 22-29 [facility] Centererum or plasma anion wrg6758-99-79 11:00:00* Test Item Value Reference Range Interpretation Comments Anion Gap (test code = 29397-4) 19.1 8-16 [facility] Centererum or plasma urea nitrogen measurement (mass/volume)2019-12-31 11:00:00* Test Item Value Reference Range Interpretation Comments Blood Urea Nitrogen (test code = 3094-0) 17 7-26 [facility] Centererum or plasma creatinine measurement (mass/volume)2019-12-31 11:00:00* Test Item Value Reference Range Interpretation Comments Creatinine (test code = 2160-0) 1.04 0.57-1.11 [facility] Centererum or plasma urea nitrogen/creatinine mass iakoz7067-49-70 11:00:00* Test Item Value Reference Range Interpretation Comments BUN/Creatinine Ratio (test code = 3097-3) 16 6- [facility] CenterEstimated glomerular filtration rate (GFR) lbohvgnlbbtfc0472-82-51 11:00:00* Test Item Value Reference Range Interpretation Comments Estimat Glomerular Filtration Rate (test code = 297394170) > 60 >60 Ranges were taken from the National Kidney Disease Education Program and the [employer] [facility] Foundation literature.Reference ranges:60 or greater: Mxhzpf98-82 ( for 3 consecutive months): Chronic kidney disease 15 or less: Kidney failureEnnis Regional Medical CenterGlucose gkevmnysjyu9929-18-06 11:00:00* Test Item Value Reference Range Interpretation Comments Glucose Level (test code = TSK4292) 135 74-118 [facility] Centererum or plasma calcium measurement (mass/volume)2019-12-31 11:00:00* Test Item Value Reference Range Interpretation Comments Calcium Level (test code = 05286-6) 9.1 8.4-10.2 [facility] Centererum or plasma total bilirubin measurement (mass/volume)2019-12-31 11:00:00* Test Item Value Reference Range Interpretation Comments Total Bilirubin (test code = 1975-2) 0.3 0.2-1.2 [facility] CenterFluoroscopic procedure less than one hour riaolslu5701-47-36 11:00:00* Test Item Value Reference Range Interpretation Comments Aspartate Amino Transf (AST/SGOT) (test code = Aspartate Amino Transf (AST/SGOT)) 15 5-34 [facility] Centererum or plasma alanine aminotransferase measurement (enzymatic activity/volume)2019-12-31 11:00:00* Test Item Value Reference Range Interpretation Comments Alanine Aminotransferase (ALT/SGPT) (test code = 1742-6) 15 0-55 [facility] Centererum or plasma protein measurement (mass/volume)2019-12-31 11:00:00* Test Item Value Reference Range Interpretation Comments Total Protein (test code = 2885-2) 7.7 6.5-8.1 [facility] Centererum or plasma albumin measurement (mass/volume)2019-12-31 11:00:00* Test Item Value Reference Range Interpretation Comments Albumin (test code = 1751-7) 4.4 3.5-5.0 [facility] CenterPlasma globulin measurement (mass/volume) 2019-12-31 11:00:00* Test Item Value Reference Range Interpretation Comments Globulin (test code = 54641-8) 3.3 2.3-3.5 [facility] Centererum or plasma albumin/globulin mass bykqh5188-32-16 11:00:00* Test Item Value Reference Range Interpretation Comments Albumin/Globulin Ratio (test code = 1759-0) 1.3 0.8-2.0 [facility] Centererum or plasma alkaline phosphatase measurement (enzymatic activity/volume)2019-12-31 11:00:00* Test Item Value Reference Range Interpretation Comments Alkaline Phosphatase (test code = 6768-6) 88 40-150 [facility] CenterCT CERVICAL SPINE [id number] 23:07:00 [place] [address] Patient Name: GHANSHYAM SCHROEDER MR #: [id number] : 1950 Age/Sex: 69/F Req #: [id number] Adm Physician: Ordered by: MELIA SCHULTZ MD Report #: [id number] Location: Room/Bed: Procedure: [id number] CT/C T CERVICAL SPINE WO Exam Date: [...] COPY TO: MELIA SCHULTZ MD CT BRAIN [id number] 23:01:00 [place] [address] Patient Name: GHANSHYAM SCHROEDER MR #: [id number] : 1950 Age/Sex: 69/F Req #: [id number] Adm Physician: Ordered by: MELIA SCHULTZ MD Report #: [id number] Location: Room/Bed: Procedure: CT/C T BRAIN WO Exam Date: 09/25/19 [...] 11:06 PM Dictated By: SAL AMATO MD Electronica lly Signed By: SAL AMATO MD on 09/25/192305 Transcribed By: BRYANT on 09/25/192305 COPY TO: MELIA SCHULTZ MD ANKLE 3+ VIEWS KKJX6911-32-23 01:43:00 [place] [address] Patient Name: GHANSHYAM SCHROEDER MR #: [id number] : 1950 Age/Sex: 68/F Req #: [id number] Adm Physician: Ordered by: LILIBETH MARINA DO Report #: [id number] Location: ER Room/Bed: Procedure: [id number] D X/ANKLE 3+ VIEWS LEFT Exam Date: [...] LEFT 2-3 VW (+/- PELVIS) 2019-07-01 23:44:[address], [place] [address] Patient Name: GHANSHYAM SCHROEDER MR #: [id number] : 1950 Age/Sex: 68/F Req #: [id number] [facility] Physician: Ordered by: LILIBETH MARINA DO Report #: [id number] Location: ER Room/Bed: Procedure: [id number] D X/HIP LEFT 2-3 VW (+/- PELVIS) [...] 11:53 PM Dictated By: KEYONA MONTOYA MD 2353 Transcribed By: BRYANT on 07/01/192352 COPY TO: LILIBETH MARINA DO FOOT LEFT MBNCKDFU9936-74-09 23:44:00 [place] [address] Patient Name: GHANSHYAM SCHROEDER MR #: [id number] : 1950 Age/Sex: 68/F Req #: [id number] Adm Physician: Ordered by: LILIBETH MARINA DO Report #: [id number] Location: ER Room/Bed: Procedure: [id number] D X/FOOT LEFT COMPLETE Exam Date: 07/01/19 [...] O: LILIBETH MARINA DO KNEE LEFT THREE WJEIK9300-35-61 23:44:00 [place] [address] Patient Name: GHANSHYAM SCHROEDER MR #: [id number] : 1950 Age/Sex: 68/F Req #: [id number] Adm Physician: Ordered by: LILIBETH MARINA DO Report #: [id number] Location: ER Room/Bed: Procedure: [id number] D X/KNEE LEFT THREE VIEWS Exam Date: 07/01/19 Exam Gage e: 2306 REPORT STATUS: Signed Ex am: AP radiograph [...] MD 53 Transcribed By: BRYANT on 07/01/192352 STUDENT Y TO: LILIBETH MARINA DO CT BRAIN [id number] 19:35:00 [place] [address] Patient Name: GHANSHYAM SCHROEDER MR #: [id number] : 1950 Age/Sex: 68/F Req #: [id number] Adm Physician: Ordered by: MALOU RODRIGUEZ MD Report #: [id number] Location: ER Room/Bed: Procedure: [id number] CT/C T BRAIN WO Exam Date: 07/01/19 [...] 07/01/191937 COPY TO: MALOU RODRIGUEZ MD Sodium Nijgn5262-29-62 20:03:00* Test Item Value Reference Range Interpretation Comments Sodium Level (test code = 2951-2) 144 136-145 [facility] CenterPotassium Rcjeo3532-91-01 20:03:00* Test Item Value Reference Range Interpretation Comments Potassium Level (test code = 2823-3) 3.5 3.5-5.1 [facility] CenterChloride Kodly4021-17-71 20:03:00* Test Item Value Reference Range Interpretation Comments Chloride Level (test code = 2075-0) 104 98-107 [facility] CenterCarbon Dioxide Yzjos4598-92-76 20:03:00* Test Item Value Reference Range Interpretation Comments Carbon Dioxide Level (test code = 2028-9) 29 22-29 [facility] CenterAnion Ptp8813-25-24 20:03:00* Test Item Value Reference Range Interpretation Comments Anion Gap (test code = 42138-6) 14.5 8-16 [facility] CenterBlood Urea Klapjwiz4220-53-62 20:03:00* Test Item Value Reference Range Interpretation Comments Blood Urea Nitrogen (test code = 3094-0) 11 7-26 [facility] CenterCreatinine2020-01-15 20:03:00* Test Item Value Reference Range Interpretation Comments Creatinine (test code = 2160-0) 0.98 0.57-1.11 [facility] CenterBUN/Creatinine Oqavn7779-69-23 20:03:00* Test Item Value Reference Range Interpretation Comments BUN/Creatinine Ratio (test code = 3097-3) 11 6-25 [facility] CenterEstimat Glomerular Filtration Rate 2019-05-06 20:03:00* Test Item Value Reference Range Interpretation Comments Estimat Glomerular Filtration Rate (test code = 254082659) > 60 >60 Ranges were taken from the National Kidney Disease Education Program and the [employer] [facility] literature.Reference ranges:60 or greater: Anyaxv92-33 ( for 3 consecutive months): Chronic kidney disease 15 or less: Kidney failureEnnis Regional Medical CenterGlucose Ozykt3810-05-06 20:03:00* Test Item Value Reference Range Interpretation Comments Glucose Level (test code = PEV4831) 183 74-118 H [facility] CenterCalcium Pfdes8102-72-80 20:03:00* Test Item Value Reference Range Interpretation Comments Calcium Level (test code = 00828-7) 9.2 8.4-10.2 [facility] CenterTotal Bgotamgra5824-23-95 20:03:00* Test Item Value Reference Range Interpretation Comments Total Bilirubin (test code = 1975-2) 0.3 0.2-1.2 [facility] CenterAspartate Amino Transf (AST/SGOT) 2019-05-06 20:03:00* Test Item Value Reference Range Interpretation Comments Aspartate Amino Transf (AST/SGOT) (test code = Aspartate Amino Transf (AST/SGOT)) 28 5-34 [facility] CenterAlanine Aminotransferase (ALT/SGPT) 2019-05-06 20:03:00* Test Item Value Reference Range Interpretation Comments Alanine Aminotransferase (ALT/SGPT) (test code = 1742-6) 33 0-55 [facility] CenterTotal Iljtlsv8078-87-55 20:03:00* Test Item Value Reference Range Interpretation Comments Total Protein (test code = 2885-2) 7.3 6.5-8.1 [facility] CenterAlbumin2020-01-15 20:03:00* Test Item Value Reference Range Interpretation Comments Albumin (test code = 1751-7) 3.6 3.5-5.0 [facility] CenterGlobulin2020-01-15 20:03:00* Test Item Value Reference Range Interpretation Comments Globulin (test code = 38850-7) 3.7 2.3-3.5 H [facility] CenterAlbumin/Globulin Iylvx7468-23-96 20:03:00 * Test Item Value Reference Range Interpretation Comments Albumin/Globulin Ratio (test code = 1759-0) 1.0 0.8-2.0 [facility] CenterAlkaline Pctfzuvrjnu1758-90-53 20:03:00* Test Item Value Reference Range Interpretation Comments Alkaline Phosphatase (test code = 6768-6) 69 40-150 [facility] CenterB-Type Natriuretic Rafxedk0881-60-66 20:03:00* Test Item Value Reference Range Interpretation Comments B-Type Natriuretic Peptide (test code = 33374-8) 16.9 0-100 [facility] CenterCreatine Ryefdj2666-63-25 20:03:00* Test Item Value Reference Range Interpretation Comments Creatine Kinase (test code = 2157-6) 187 29-168 H [facility] CenterCreatine Kinase WC9371-99-68 20:03:00* Test Item Value Reference Range Interpretation Comments Creatine Kinase MB (test code = 02866-4) 2.60 0-5.0 [facility] CenterTroponin X4886-69-28 20:03:00* Test Item Value Reference Range Interpretation Comments Troponin I (test code = KCR8953) < 0.001 0-0.300 [facility] Centerodium Bviuo4603-40-79 20:03:00* Test Item Value Reference Range Interpretation Comments Sodium Level (test code = 2951-2) 144 136-145 [facility] CenterPotassium Bbofy1861-23-45 20:03:00* Test Item Value Reference Range Interpretation Comments Potassium Level (test code = 2823-3) 3.5 3.5-5.1 [facility] CenterChloride Klaog5165-50-67 20:03:00* Test Item Value Reference Range Interpretation Comments Chloride Level (test code = 2075-0) 104 98-107 [facility] CenterCarbon Dioxide Kodjg7667-16-48 20:03:00* Test Item Value Reference Range Interpretation Comments Carbon Dioxide Level (test code = 2028-9) 29 22-29 [facility] CenterAnion Wbi3894-78-44 20:03:00* Test Item Value Reference Range Interpretation Comments Anion Gap (test code = 83407-9) 14.5 8-16 [facility] CenterBlood Urea Hzptrjlx2141-44-66 20:03:00* Test Item Value Reference Range Interpretation Comments Blood Urea Nitrogen (test code = 3094-0) 11 7-26 [facility] CenterCreatinine2020-01-15 20:03:00* Test Item Value Reference Range Interpretation Comments Creatinine (test code = 2160-0) 0.98 0.57-1.11 [facility] CenterBUN/Creatinine Htxsi4956-88-49 20:03:00* Test Item Value Reference Range Interpretation Comments BUN/Creatinine Ratio (test code = 3097-3) 11 6-25 [facility] CenterEstimat Glomerular Filtration Rate 2019-05-06 20:03:00* Test Item Value Reference Range Interpretation Comments Estimat Glomerular Filtration Rate (test code = 081516409) > 60 >60 Ranges were taken from the National Kidney Disease Education Program and the [facility] literature.Reference ranges:60 or greater: Dskqss12-57 ( for 3 consecutive months): Chronic kidney disease 15 or less: Kidney failureEnnis [facility] Medical CenterGlucose Tyzqr3406-81-18 20:03:00* Test Item Value Reference Range Interpretation Comments Glucose Level (test code = TVG8899) 183 74-118 H [facility] CenterCalcium Ktyjz8106-06-97 20:03:00* Test Item Value Reference Range Interpretation Comments Calcium Level (test code = 48243-8) 9.2 8.4-10.2 [facility] CenterTotal Okavaolcg5947-71-07 20:03:00* Test Item Value Reference Range Interpretation Comments Total Bilirubin (test code = 1975-2) 0.3 0.2-1.2 [facility] CenterAspartate Amino Transf (AST/SGOT) 2019-05-06 20:03:00* Test Item Value Reference Range Interpretation Comments Aspartate Amino Transf (AST/SGOT) (test code = Aspartate Amino Transf (AST/SGOT)) 28 5-34 [facility] CenterAlanine Aminotransferase (ALT/SGPT) 2019-05-06 20:03:00* Test Item Value Reference Range Interpretation Comments Alanine Aminotransferase (ALT/SGPT) (test code = 1742-6) 33 0-55 [facility] CenterTotal Mzxciaj4380-39-30 20:03:00* Test Item Value Reference Range Interpretation Comments Total Protein (test code = 2885-2) 7.3 6.5-8.1 [facility] CenterAlbumin2020-01-15 20:03:00* Test Item Value Reference Range Interpretation Comments Albumin (test code = 1751-7) 3.6 3.5-5.0 [facility] CenterGlobulin2020-01-15 20:03:00* Test Item Value Reference Range Interpretation Comments Globulin (test code = 82734-1) 3.7 2.3-3.5 H [facility] CenterAlbumin/Globulin Zukcc1487-33-40 20:03:00 * Test Item Value Reference Range Interpretation Comments Albumin/Globulin Ratio (test code = 1759-0) 1.0 0.8-2.0 [facility] CenterAlkaline Rnhwjparpen7973-86-32 20:03:00* Test Item Value Reference Range Interpretation Comments Alkaline Phosphatase (test code = 6768-6) 69 40-150 [facility] CenterB-Type Natriuretic Coquwch6648-27-04 20:03:00* Test Item Value Reference Range Interpretation Comments B-Type Natriuretic Peptide (test code = 23047-0) 16.9 0-100 [facility] CenterCreatine Dvfunt9890-36-93 20:03:00* Test Item Value Reference Range Interpretation Comments Creatine Kinase (test code = 2157-6) 187 29-168 H [facility] CenterCreatine Kinase DH3873-80-99 20:03:00* Test Item Value Reference Range Interpretation Comments Creatine Kinase MB (test code = 88751-4) 2.60 0-5.0 [facility] CenterTroponin L5765-06-88 20:03:00* Test Item Value Reference Range Interpretation Comments Troponin I (test code = SHP2635) < 0.001 0-0.300 [facility] CenterInfluenza Virus Types A,B Antigen 2019-05-06 19:46:00* Test Item Value Reference Range Interpretation Comments Influenza Virus Types A,B Antigen (test code = 57007-4) NEGATIVE NEGATIVE [facility] CenterInfluenza Virus Types A,B Antigen 2019-05-06 19:46:00* Test Item Value Reference Range Interpretation Comments Influenza Virus Types A,B Antigen (test code = 37774-1) NEGATIVE NEGATIVE [facility] CenterProthrombin Rwty3791-69-07 19:34:00* Test Item Value Reference Range Interpretation Comments Prothrombin Time (test code = 5902-2) 11.8 11.9-14.5 L [facility] CenterProthromb Time International Ratio 2019-05-06 19:34:00* Test Item Value Reference Range Interpretation Comments Prothromb Time International Ratio (test code = 6301-6) 0.82 Oral Anticoagulant Therapy INR Values:1. Low Intensity Therapy 1.5 - 2.02 . Moderate Intensity Therapy 2.0 - 3.03. High Intensity Therapy(1) 2.5 - 3. 54. High Intensity Therapy(2) 3.0 - 4.05. Panic Value INR > 5.0 [facility] CenterActivated Partial Thromboplast Time 2019-05-06 19:34:00* Test Item Value Reference Range Interpretation Comments Activated Partial Thromboplast Time (test code = 95236-8) 26.3 23.8-35.5 [facility] CenterProthrombin Vruv9858-15-23 19:34:00* Test Item Value Reference Range Interpretation Comments Prothrombin Time (test code = 5902-2) 11.8 11.9-14.5 L [facility] CenterProthromb Time International Ratio 2019-05-06 19:34:00* Test Item Value Reference Range Interpretation Comments Prothromb Time International Ratio (test code = 6301-6) 0.82 Oral Anticoagulant Therapy INR Values:1. Low Intensity Therapy 1.5 - 2.02 . Moderate Intensity Therapy 2.0 - 3.03. High Intensity Therapy(1) 2.5 - 3. 54. High Intensity Therapy(2) 3.0 - 4.05. Panic Value INR > 5.0 [facility] CenterActivated Partial Thromboplast Time 2019-05-06 19:34:00* Test Item Value Reference Range Interpretation Comments Activated Partial Thromboplast Time (test code = 98599-1) 26.3 23.8-35.5 [facility] CenterWhite Blood Vpbee7889-37-51 19:27:00* Test Item Value Reference Range Interpretation Comments White Blood Count (test code = 6690-2) 6.17 4.8-10.8 [facility] CenterRed Blood Octfz2320-55-00 19:27:00* Test Item Value Reference Range Interpretation Comments Red Blood Count (test code = 789-8) 5.34 3.6-5.1 H [facility] CenterHemoglobin2020-01-15 19:27:00* Test Item Value Reference Range Interpretation Comments Hemoglobin (test code = 21257-7) 12.9 12.0-16.0 [facility] CenterHematocrit2020-01-15 19:27:00* Test Item Value Reference Range Interpretation Comments Hematocrit (test code = 4544-3) 42.1 34.2-44.1 [facility] CenterMean Corpuscular Esfqxl5620-92-24 19:27:00* Test Item Value Reference Range Interpretation Comments Mean Corpuscular Volume (test code = 787-2) 78.8 81-99 L [facility] CenterMean Corpuscular Wvtmgephhd4981-57-00 19:27:00* Test Item Value Reference Range Interpretation Comments Mean Corpuscular Hemoglobin (test code = 785-6) 24.2 28-32 L [facility] CenterMean Corpuscular Hemoglobin Concent 2019-05-06 19:27:00* Test Item Value Reference Range Interpretation Comments Mean Corpuscular Hemoglobin Concent (test code = 786-4) 30.6 31-35 L [facility] CenterRed Cell Distribution Zskze5791-09-51 19:27:00* Test Item Value Reference Range Interpretation Comments Red Cell Distribution Width (test code = 31666-8) 14.8 11.7 -14.4 H [facility] CenterPlatelet Denux6236-82-65 19:27:00* Test Item Value Reference Range Interpretation Comments Platelet Count (test code = 777-3) 276 140-360 [facility] CenterNeutrophils (%) (Auto)2019-05-06 19:27:00 * Test Item Value Reference Range Interpretation Comments Neutrophils (%) (Auto) (test code = 85729-5) 50.5 38.7-80.0 [facility] CenterLymphocytes (%) (Auto)2019-05-06 19:27:00 * Test Item Value Reference Range Interpretation Comments Lymphocytes (%) (Auto) (test code = 736-9) 37.1 18.0-39.1 [facility] CenterMonocytes (%) (Auto)2019-05-06 19:27:00* Test Item Value Reference Range Interpretation Comments Monocytes (%) (Auto) (test code = 5905-5) 7.9 4.4-11.3 [facility] CenterEosinophils (%) (Auto)2019-05-06 19:27:00 * Test Item Value Reference Range Interpretation Comments Eosinophils (%) (Auto) (test code = 713-8) 3.7 0.0-6.0 [facility] CenterBasophils (%) (Auto)2019-05-06 19:27:00* Test Item Value Reference Range Interpretation Comments Basophils (%) (Auto) (test code = 706-2) 0.5 0.0-1.0 [facility] CenterIM GRANULOCYTES %2019-05-06 19:27:00* Test Item Value Reference Range Interpretation Comments IM GRANULOCYTES % (test code = IM GRANULOCYTES %) 0.3 0.0- 1.0 [facility] CenterNeutrophils # (Auto)2019-05-06 19:27:00* Test Item Value Reference Range Interpretation Comments Neutrophils # (Auto) (test code = 751-8) 3.1 2.1-6.9 [facility] CenterLymphocytes # (Auto)2019-05-06 19:27:00* Test Item Value Reference Range Interpretation Comments Lymphocytes # (Auto) (test code = 16914-7) 2.3 1.0-3.2 [facility] CenterMonocytes # (Auto)2019-05-06 19:27:00* Test Item Value Reference Range Interpretation Comments Monocytes # (Auto) (test code = 742-7) 0.5 0.2-0.8 [facility] CenterEosinophils # (Auto)2019-05-06 19:27:00* Test Item Value Reference Range Interpretation Comments Eosinophils # (Auto) (test code = 711-2) 0.2 0.0-0.4 [facility] CenterBasophils # (Auto)2019-05-06 19:27:00* Test Item Value Reference Range Interpretation Comments Basophils # (Auto) (test code = 704-7) 0.0 0.0-0.1 [facility] CenterAbsolute Immature Granulocyte (auto 2019-05-06 19:27:00* Test Item Value Reference Range Interpretation Comments Absolute Immature Granulocyte (auto (corey t code = Absolute Immature Granulocyte (auto) 0.02 0-0.1 [facility] CenterWhite Blood Gxuux2323-22-83 19:27:00* Test Item Value Reference Range Interpretation Comments White Blood Count (test code = 6690-2) 6.17 4.8-10.8 [facility] CenterRed Blood Nxaik3062-66-28 19:27:00* Test Item Value Reference Range Interpretation Comments Red Blood Count (test code = 789-8) 5.34 3.6-5.1 H [facility] CenterHemoglobin2020-01-15 19:27:00* Test Item Value Reference Range Interpretation Comments Hemoglobin (test code = 28568-1) 12.9 12.0-16.0 [facility] CenterHematocrit2020-01-15 19:27:00* Test Item Value Reference Range Interpretation Comments Hematocrit (test code = 4544-3) 42.1 34.2-44.1 [facility] CenterMean Corpuscular Bchiru7420-45-86 19:27:00* Test Item Value Reference Range Interpretation Comments Mean Corpuscular Volume (test code = 787-2) 78.8 81-99 L [facility] CenterMean Corpuscular Kujfzqksen5570-35-26 19:27:00* Test Item Value Reference Range Interpretation Comments Mean Corpuscular Hemoglobin (test code = 785-6) 24.2 28-32 L [facility] CenterMean Corpuscular Hemoglobin Concent 2019-05-06 19:27:00* Test Item Value Reference Range Interpretation Comments Mean Corpuscular Hemoglobin Concent (test code = 786-4) 30.6 31-35 L [facility] CenterRed Cell Distribution Ocerb6231-00-12 19:27:00* Test Item Value Reference Range Interpretation Comments Red Cell Distribution Width (test code = 47827-3) 14.8 11.7 -14.4 H [facility] CenterPlatelet Qxesq1015-69-74 19:27:00* Test Item Value Reference Range Interpretation Comments Platelet Count (test code = 777-3) 276 140-360 [facility] CenterNeutrophils (%) (Auto)2019-05-06 19:27:00 * Test Item Value Reference Range Interpretation Comments Neutrophils (%) (Auto) (test code = 16036-5) 50.5 38.7-80.0 [facility] CenterLymphocytes (%) (Auto)2019-05-06 19:27:00 * Test Item Value Reference Range Interpretation Comments Lymphocytes (%) (Auto) (test code = 736-9) 37.1 18.0-39.1 [facility] CenterMonocytes (%) (Auto)2019-05-06 19:27:00* Test Item Value Reference Range Interpretation Comments Monocytes (%) (Auto) (test code = 5905-5) 7.9 4.4-11.3 [facility] CenterEosinophils (%) (Auto)2019-05-06 19:27:00 * Test Item Value Reference Range Interpretation Comments Eosinophils (%) (Auto) (test code = 713-8) 3.7 0.0-6.0 [facility] CenterBasophils (%) (Auto)2019-05-06 19:27:00* Test Item Value Reference Range Interpretation Comments Basophils (%) (Auto) (test code = 706-2) 0.5 0.0-1.0 [facility] CenterIM GRANULOCYTES %2019-05-06 19:27:00* Test Item Value Reference Range Interpretation Comments IM GRANULOCYTES % (test code = IM GRANULOCYTES %) 0.3 0.0- 1.0 [facility] CenterNeutrophils # (Auto)2019-05-06 19:27:00* Test Item Value Reference Range Interpretation Comments Neutrophils # (Auto) (test code = 751-8) 3.1 2.1-6.9 [facility] CenterLymphocytes # (Auto)2019-05-06 19:27:00* Test Item Value Reference Range Interpretation Comments Lymphocytes # (Auto) (test code = 65374-7) 2.3 1.0-3.2 [facility] CenterMonocytes # (Auto)2019-05-06 19:27:00* Test Item Value Reference Range Interpretation Comments Monocytes # (Auto) (test code = 742-7) 0.5 0.2-0.8 [facility] CenterEosinophils # (Auto)2019-05-06 19:27:00* Test Item Value Reference Range Interpretation Comments Eosinophils # (Auto) (test code = 711-2) 0.2 0.0-0.4 [facility] CenterBasophils # (Auto)2019-05-06 19:27:00* Test Item Value Reference Range Interpretation Comments Basophils # (Auto) (test code = 704-7) 0.0 0.0-0.1 [facility] CenterAbsolute Immature Granulocyte (auto 2019-05-06 19:27:00* Test Item Value Reference Range Interpretation Comments Absolute Immature Granulocyte (auto (corey t code = Absolute Immature Granulocyte (auto) 0.02 0-0.1 [facility] CenterCHEST 2 TPPTT1946-45-53 18:54:00 [facility] [address] [address] Patient Name: GHANSHYAM SCHROEDER MR #: [id number] : 1950 Age/Sex: 68/F Req #: [id number] Adm Physician: Ordered by: COLLEEN ANGUIANO TUMBLER PLATER Report #: [id number] Location: ER Room/Bed: Procedure: [id number] DX /CHEST 2 VIEWS Exam Date: 05/06/19 [...] By: BRYANT on 05/06/191854 COPY TO: COLLEEN ANGUIAON TUMBLER PLATER Blood leukocytes automated count (number/volume)2019-05-06 18:00:00* Test Item Value Reference Range Interpretation Comments White Blood Count (test code = 6690-2) 6.17 4.8-10.8 [facility] CenterBlood erythrocytes automated count (number/volume)2019-05-06 18:00:00* Test Item Value Reference Range Interpretation Comments Red Blood Count (test code = 789-8) 5.34 3.6-5.1 [facility] CenterBlood hemoglobin measurement (moles/volume)2019-05-06 18:00:00* Test Item Value Reference Range Interpretation Comments Hemoglobin (test code = 14091-3) 12.9 12.0-16.0 [facility] CenterAutomated blood hematocrit (volume fraction)2019-05-06 18:00:00* Test Item Value Reference Range Interpretation Comments Hematocrit (test code = 4544-3) 42.1 34.2-44.1 [facility] CenterAutomated erythrocyte mean corpuscular csirej0754-15-71 18:00:00* Test Item Value Reference Range Interpretation Comments Mean Corpuscular Volume (test code = 787-2) 78.8 81-99 [facility] CenterAutomated erythrocyte mean corpuscular hemoglobin (mass per erythrocyte)2019-05-06 18:00:00* Test Item Value Reference Range Interpretation Comments Mean Corpuscular Hemoglobin (test code = 785-6) 24.2 28-32 [facility] CenterAutomated erythrocyte mean corpuscular hemoglobin concentration measurement (mass/volume)2019-05-06 18:00:00* Test Item Value Reference Range Interpretation Comments Mean Corpuscular Hemoglobin Concent (test code = 786-4) 30.6 31-35 [facility] CenterRDW HpnFh-Hyv6455-18-15 18:00:00* Test Item Value Reference Range Interpretation Comments Red Cell Distribution Width (test code = 27486-0) 14.8 11.7 -14.4 [facility] CenterAutomated blood platelet count (count/volume)2019-05-06 18:00:00* Test Item Value Reference Range Interpretation Comments Platelet Count (test code = 777-3) 276 140-360 [facility] CenterAutomated blood segmented neutrophil count as percentage of total ufxxqmybyw7345-84-53 18:00:00* Test Item Value Reference Range Interpretation Comments Neutrophils (%) (Auto) (test code = 84734-5) 50.5 38.7-80.0 [facility] CenterAutomated blood lymphocyte count as percentage ot total tgrtsqescx8900-68-07 18:00:00* Test Item Value Reference Range Interpretation Comments Lymphocytes (%) (Auto) (test code = 736-9) 37.1 18.0-39.1 [facility] CenterAutomated blood monocyte count as percentage of total mbhmglefps2294-59-68 18:00:00* Test Item Value Reference Range Interpretation Comments Monocytes (%) (Auto) (test code = 5905-5) 7.9 4.4-11.3 [facility] CenterAutomated blood eosinophil count as percentage of total bgzdbxplia6079-37-25 18:00:00* Test Item Value Reference Range Interpretation Comments Eosinophils (%) (Auto) (test code = 713-8) 3.7 0.0-6.0 [facility] CenterAutomated blood basophil count as percentage of total mowynttxji1629-66-37 18:00:00* Test Item Value Reference Range Interpretation Comments Basophils (%) (Auto) (test code = 706-2) 0.5 0.0-1.0 [facility] CenterFluoroscopic procedure less than one hour aglsvrez4464-09-26 18:00:00* Test Item Value Reference Range Interpretation Comments IM GRANULOCYTES % (test code = IM GRANULOCYTES %) 0.3 0.0- 1.0 [facility] CenterAutomated blood neutrophil count 2019-05-06 18:00:00* Test Item Value Reference Range Interpretation Comments Neutrophils # (Auto) (test code = 751-8) 3.1 2.1-6.9 [facility] CenterBlood lymphocytes count (number/volume) 2019-05-06 18:00:00* Test Item Value Reference Range Interpretation Comments Lymphocytes # (Auto) (test code = 64441-0) 2.3 1.0-3.2 [facility] CenterBlood monocytes automated count (number/volume)2019-05-06 18:00:00* Test Item Value Reference Range Interpretation Comments Monocytes # (Auto) (test code = 742-7) 0.5 0.2-0.8 [facility] CenterAutomated blood eosinophil count 2019-05-06 18:00:00* Test Item Value Reference Range Interpretation Comments Eosinophils # (Auto) (test code = 711-2) 0.2 0.0-0.4 [facility] CenterAutomated blood basophil count (count/volume)2019-05-06 18:00:00* Test Item Value Reference Range Interpretation Comments Basophils # (Auto) (test code = 704-7) 0.0 0.0-0.1 [facility] CenterFluoroscopic procedure less than one hour ormtjpnl9602-78-53 18:00:00* Test Item Value Reference Range Interpretation Comments Absolute Immature Granulocyte (auto (corey t code = Absolute Immature Granulocyte (auto) 0.02 0-0.1 [facility] CenterProthrombin time (PT) in platelet poor plasma by coagulation bnzke1217-09-15 18:00:00* Test Item Value Reference Range Interpretation Comments Prothrombin Time (test code = 5902-2) 11.8 11.9-14.5 [facility] CenterINR in Platelet poor plasma by Coagulation vpnfm8322-48-00 18:00:00* Test Item Value Reference Range Interpretation Comments Prothromb Time International Ratio (test code = 6301-6) 0.82 Oral Anticoagulant Therapy INR Values:1. Low Intensity Therapy 1.5 - 2.02 . Moderate Intensity Therapy 2.0 - 3.03. High Intensity Therapy(1) 2.5 - 3. 54. High Intensity Therapy(2) 3.0 - 4.05. Panic Value INR > 5.0 [facility] CenterActivated partial thromboplastin time (aPTT) in platelet poor plasma by coagulation jfjze5287-32-96 18:00:00* Test Item Value Reference Range Interpretation Comments Activated Partial Thromboplast Time (test code = 48506-7) 26.3 23.8-35.5 [facility] Centererum or plasma sodium measurement (moles/volume)2019-05-06 18:00:00* Test Item Value Reference Range Interpretation Comments Sodium Level (test code = 2951-2) 144 136-145 [facility] Centererum or plasma potassium measurement (moles/volume)2019-05-06 18:00:00* Test Item Value Reference Range Interpretation Comments Potassium Level (test code = 2823-3) 3.5 3.5-5.1 [facility] Centererum or plasma chloride measurement (moles/volume)2019-05-06 18:00:00* Test Item Value Reference Range Interpretation Comments Chloride Level (test code = 2075-0) 104 98-107 [facility] CenterInfluenza virus A and B antigen identification by avoczzlydjutffshyh9285-48-71 18:00:00* Test Item Value Reference Range Interpretation Comments Influenza Virus Types A,B Antigen (test code = 57727-6) NEGATIVE NEGATIVE [facility] Centererum or plasma carbon dioxide, total measurement (moles/volume)2019-05-06 18:00:00* Test Item Value Reference Range Interpretation Comments Carbon Dioxide Level (test code = 2028-9) 29 22-29 [facility] Centererum or plasma anion jln5455-87-60 18:00:00* Test Item Value Reference Range Interpretation Comments Anion Gap (test code = 16813-1) 14.5 8-16 [facility] Centererum or plasma urea nitrogen measurement (mass/volume)2019-05-06 18:00:00* Test Item Value Reference Range Interpretation Comments Blood Urea Nitrogen (test code = 3094-0) 11 7-26 [facility] Centererum or plasma creatinine measurement (mass/volume)2019-05-06 18:00:00* Test Item Value Reference Range Interpretation Comments Creatinine (test code = 2160-0) 0.98 0.57-1.11 [facility] Centererum or plasma urea nitrogen/creatinine mass ujiqd2368-93-80 18:00:00* Test Item Value Reference Range Interpretation Comments BUN/Creatinine Ratio (test code = 3097-3) 11 6-25 [facility] CenterEstimated glomerular filtration rate (GFR) jgdsnfcwwzrre6059-37-69 18:00:00* Test Item Value Reference Range Interpretation Comments Estimat Glomerular Filtration Rate (test code = 017475908) > 60 >60 Ranges were taken from the National Kidney Disease Education Program and the [facility] literature.Reference ranges:60 or greater: Rfxzes93-63 ( for 3 consecutive months): Chronic kidney disease 15 or less: Kidney failureEnnis [facility] Medical CenterGlucose yqrappdwzbd3989-61-96 18:00:00* Test Item Value Reference Range Interpretation Comments Glucose Level (test code = QRG9094) 183 74-118 [facility]ererum or plasma calcium measurement (mass/volume)2019-05-06 18:00:00* Test Item Value Reference Range Interpretation Comments Calcium Level (test code = 66039-3) 9.2 8.4-10.2 [facility] Centererum or plasma total bilirubin measurement (mass/volume)2019-05-06 18:00:00* Test Item Value Reference Range Interpretation Comments Total Bilirubin (test code = 1975-2) 0.3 0.2-1.2 [facility] CenterFluoroscopic procedure less than one hour hkddmyhj1191-04-97 18:00:00* Test Item Value Reference Range Interpretation Comments Aspartate Amino Transf (AST/SGOT) (test code = Aspartate Amino Transf (AST/SGOT)) 28 5-34 [facility] Centererum or plasma alanine aminotransferase measurement (enzymatic activity/volume)2019-05-06 18:00:00* Test Item Value Reference Range Interpretation Comments Alanine Aminotransferase (ALT/SGPT) (test code = 1742-6) 33 0-55 [facility] Centererum or plasma protein measurement (mass/volume)2019-05-06 18:00:00* Test Item Value Reference Range Interpretation Comments Total Protein (test code = 2885-2) 7.3 6.5-8.1 [facility] Centererum or plasma albumin measurement (mass/volume)2019-05-06 18:00:00* Test Item Value Reference Range Interpretation Comments Albumin (test code = 1751-7) 3.6 3.5-5.0 [facility] CenterPlasma globulin measurement (mass/volume) 2019-05-06 18:00:00* Test Item Value Reference Range Interpretation Comments Globulin (test code = 71940-5) 3.7 2.3-3.5 [facility] Centererum or plasma albumin/globulin mass xlruo2003-16-37 18:00:00* Test Item Value Reference Range Interpretation Comments Albumin/Globulin Ratio (test code = 1759-0) 1.0 0.8-2.0 [facility] Centererum or plasma alkaline phosphatase measurement (enzymatic activity/volume)2019-05-06 18:00:00* Test Item Value Reference Range Interpretation Comments Alkaline Phosphatase (test code = 6768-6) 69 40-150 [facility] CenterBNP Lzs-tPqf9268-95-15 18:00:00* Test Item Value Reference Range Interpretation Comments B-Type Natriuretic Peptide (test code = 92299-7) 16.9 0-100 [facility] Centererum or plasma creatine kinase measurement (enzymatic activity/volume)2019-05-06 18:00:00* Test Item Value Reference Range Interpretation Comments Creatine Kinase (test code = 2157-6) 187 29-168 [facility] Centererum or plasma creatine kinase MB measurement (mass/volume)2019-05-06 18:00:00* Test Item Value Reference Range Interpretation Comments Creatine Kinase MB (test code = 40189-7) 2.60 0-5.0 [facility] CenterTroponin I measurement by highly sensitive enzyme dqmexfyglpy2064-55-98 18:00:00* Test Item Value Reference Range Interpretation Comments Troponin I (test code = 77003-0) < 0.001 0-0.300 [facility] CenterActivated partial thromboplastin time (aPTT) in platelet poor plasma by coagulation ypktx2800-94-97 18:00:00* Test Item Value Reference Range Interpretation Comments Activated Partial Thromboplast Time (test code = 67183-2) 26.3 23.8-35.5 [facility] CenterInfluenza virus A and B antigen identification by jbyictktowhrbhfaea7424-58-21 18:00:00* Test Item Value Reference Range Interpretation Comments Influenza Virus Types A,B Antigen (test code = 63237-6) NEGATIVE NEGATIVE [facility]d-dLpw2299-96-94 18:00:00* Test Item Value Reference Range Interpretation Comments B-Type Natriuretic Peptide (test code = 75410-3) 16.9 0-100 [facility] Centererum or plasma creatine kinase measurement (enzymatic activity/volume)2019-05-06 18:00:00* Test Item Value Reference Range Interpretation Comments Creatine Kinase (test code = 2157-6) 187 51-278 [facility] Centererum or plasma creatine kinase MB measurement (mass/volume)2019-05-06 18:00:00* Test Item Value Reference Range Interpretation Comments Creatine Kinase MB (test code = 45921-6) 2.60 0-5.0 [facility] CenterTroponin I measurement by highly sensitive enzyme rrmkqmmapfi7994-96-39 18:00:00* Test Item Value Reference Range Interpretation Comments Troponin I (test code = 97366-2) < 0.001 0-0.300 [facility] CenterActivated partial thromboplastin time (aPTT) in platelet poor plasma by coagulation ibyot2324-73-24 18:00:00* Test Item Value Reference Range Interpretation Comments Activated Partial Thromboplast Time (test code = 76700-9) 26.3 23.8-35.5 [facility] CenterInfluenza virus A and B antigen identification by nlczahgqxbizbdrwub3034-29-89 18:00:00* Test Item Value Reference Range Interpretation Comments Influenza Virus Types A,B Antigen (test code = 07116-7) NEGATIVE NEGATIVE [facility] Centerd-sTgx8119-16-96 18:00:00* Test Item Value Reference Range Interpretation Comments B-Type Natriuretic Peptide (test code = 75059-8) 16.9 0-100 [facility] Centererum or plasma creatine kinase measurement (enzymatic activity/volume)2019-05-06 18:00:00* Test Item Value Reference Range Interpretation Comments Creatine Kinase (test code = 2157-6) 187 29-168 [facility] Centererum or plasma creatine kinase MB measurement (mass/volume)2019-05-06 18:00:00* Test Item Value Reference Range Interpretation Comments Creatine Kinase MB (test code = 69026-6) 2.60 0-5.0 [facility] CenterCT, CTA CORONARY WITH CALCIUM EVAL AND FFR ERHXMQDU0855-63-86 10:25:00Reason for exam:->CHEST PAINAddendum BeginsREPORT STATUS:A Addendum: [...] MDReport Verified Date/Time: 02/03/2019 10:25:08 Reading Location: [facility] Diagnostic Imaging Reading Room - [facility] 1310.12Addendum EndsFINAL REPORT CT coronary angiography, 02 February 2019 INDICATION: This is a 68 -year old male with chest pain presents for assessment. TECHNIQUE: Spiral acquisition before and during intravenous contrast administration using a Lottie multidetec tor CT scanner. Multi-planar 3-D volume-rendering reconstruction was performed u sing an independent workstation interactively by the interpreting physician as w willam as the 3-D specialist for optimal visualisation [...] performed. Coronary calcification was analyzed using the [employer] system software. These are the results of [...] CT analysis, ct-ffr, by an independent third republican vendor. Should the data be accepted for postprocessing, the result would be sent to [employer] when available. However, the data will likely [...] fin dings will be reviewed by the Heat And Frost Insulator Helper Radiologist and addendum will be added as needed. Signed: Suhas Richards MDReport Verified Date/Time: 02/02/2019 14 :31:21 C METABOLIC OJNAO3450-82-60 06:56:00* Test Item Value Reference Range Interpretation [...] IS NOT APPLICABLE FOR DIALYSIS PATIENTS. POCT-GLUCOSE NEFDF3488-04-12 21:36:00* Test Item Value Reference Range Interpretation Comments POC-GLUCOSE METER (BEAKER) (test code = 1538) 96 mg/dL 70-110 TESTED AT [facility] [address] [facility] [address] POCT-GLUCOSE EVYKC2442-04-58 17:23:00* Test Item Value Reference Range Interpretation Comments POC-GLUCOSE METER (BEAKER) (test code = 1538) 135 mg/dL 70-110 H TESTED AT [facility] [address] [facility] [address] POCT-GLUCOSE SJCWB2622-71-76 11:40:00* Test Item Value Reference Range Interpretation Comments POC-GLUCOSE METER (BEAKER) (test code = 1538) 142 mg/dL 70-110 H TESTED AT [address] [address] POCT-GLUCOSE [id number] 08:02:00* Test Item Value Reference Range Interpretation Comments POC-GLUCOSE METER (BEAKER) (test code = 1538) 126 mg/dL 70-110 H TESTED AT [address] [address] BASIC METABOLIC PAGZX8520-57-71 06:07:00* Test Item Value Reference Range Interpretation [...] IS NOT APPLICABLE FOR DIALYSIS PATIENTS. POCT-GLUCOSE [id number] 21:23:00* Test Item Value Reference Range Interpretation Comments POC-GLUCOSE METER (BEAKER) (test code = 1538) 141 mg/dL 70-110 H TESTED AT [address] [address] POCT-GLUCOSE [id number] 17:54:00* Test Item Value Reference Range Interpretation Comments POC-GLUCOSE METER (BEAKER) (test code = 1538) 83 mg/dL 70-110 TESTED AT [address] [address] POCT-GLUCOSE [id number] 12:44:00* Test Item Value Reference Range Interpretation Comments POC-GLUCOSE METER (BEAKER) (test code = 1538) 145 mg/dL 70-110 H TESTED AT [facility] [address] [facility] [address] POCT-GLUCOSE SPRKR0996-12-08 08:35:00* Test Item Value Reference Range Interpretation Comments POC-GLUCOSE METER (BEAKER) (test code = 1538) 133 mg/dL 70-110 H TESTED AT [facility] [address] [facility] [address] HEMOGLOBIN [id number] 07:17:00* Test Item Value Reference Range Interpretation Comments HEMOGLOBIN A1C (BEAKER) (test code = 368) 9.4 % 4.3-6.1 H LIPID [id number] 06:27:00* Test Item Value Reference Range Interpretation [...] High 160-189 Very High >=190 BASIC METABOLIC NZGAQ9585-35-55 06:27:00* Test Item Value Reference Range Interpretation [...] GFR IS NOT APPLICABLE FOR DIALYSIS PATIENTS. TSH/FREE T4 IF MHCBTWVFH5392-37-22 05:53:00* Test Item Value Reference Range Interpretation Comments THYROID STIMULATING HORMONE (BEAKER) (test code = 772) 0.84 uIU/mL 0.35-4.94 CBC W/PLT COUNT & AUTO VLEJTOHRRCNB4358-65-10 05:13:00* Test Item Value Reference Range Interpretation [...] code = 2801) 0 % 0-1 POCT-GLUCOSE [id number] 21:36:00* Test Item Value Reference Range Interpretation Comments POC-GLUCOSE METER (BEAKER) (test code = 1538) 114 mg/dL 70-110 H TESTED AT [place] [address] TROPONIN [id number] 21:25:00* Test Item Value Reference Range Interpretation [...] acute neurological disease, and per sistent tachyarrhythmia.POCT-GLUCOSE [id number] 18:42:00* Test Item Value Reference Range Interpretation Comments POC-GLUCOSE METER (BEAKER) (test code = 1538) 92 mg/dL 70-110 TESTED AT [address] [address] TROPONIN [id number] 17:00:00* Test Item Value Reference Range Interpretation [...] acute neurological disease, and per sistent tachyarrhythmia.POCT-GLUCOSE [id number] 14:34:00* Test Item Value Reference Range Interpretation Comments POC-GLUCOSE METER (BEAKER) (test code = 1538) 116 mg/dL 70-110 H TESTED AT [facility] [address] [facility] [address] B-TYPE NATRIURETIC FACTOR (BNP)2019-01-30 11:42:00* Test Item Value Reference Range Interpretation Comments B-TYPE NATRIURETIC PEPTIDE (BEAKER) (test code = 700) < pg/mL 0-100 TROPONIN [id number] 11:04:00* Test Item Value Reference Range Interpretation [...] acidosis, acute neurological disease, and per sistent tachyarrhythmia.BYUUQYFCO6729-93-97 10:56:00* Test Item Value Reference Range Interpretation Comments MAGNESIUM (BEAKER) (test code = 627) 1.7 mg/dL 1.6-2.6 BASIC METABOLIC [id number] 10:56:00* Test Item Value Reference Range Interpretation [...] GFR IS NOT APPLICABLE FOR DIALYSIS PATIENTS. PT/[id number] 10:48:00* Test Item Value Reference Range Interpretation [...] mechanical heart valves.CBC W/PLT COUNT & AUTO NOPANBUWARYK2120-09-76 10:39:00* Test Item Value Reference Range Interpretation [...] 2801) 0 % 0-1 RAD, CHEST, 2 [id number] 10:08:00Reason for exam:->CHEST PAINFINAL REPORT INDICATION: CHEST PAIN COMPARISON: December 28, 2015 TECHNIQUE: Frontal and lateral views of the chest. FINDINGS: Lungs and pleura: Clear lungs. No effusion.Heart and mediastinum: Normal heart size. Unremarkable mediastinal contours.Osseous structures: No acute abnormality.Additional findings: None. IMPRESSION: No acute intrathoracic abnormality. Signed: Narinder tuttle JR, Robert MDReport Verified Date/Time: 01/30/2019 10:08:24 Reading Loc ation: [facility] Reading Room ABDOMEN/PELVIS [id number] 13:34:00 [place] [address] Patient Name: GHANSHYAM SCHROEDER MR #: [id number] : 1950 Age/Sex: 67/F Req #: [id number] [facility] Physician: Ordered by: YANET COATS NP Report #: [id number] Location: ER Room/Bed: Procedure: [id number] C T/CT ABDOMEN/PELVIS WO Exam Date: 07/03/18 [...] COPY TO: YANET COATS NP B-Type Natriuretic Nanehzn5441-66-19 12:07:00* Test Item Value Reference Range Interpretation Comments B-Type Natriuretic Peptide (test code = 09632-7) < 10.0 0-100 [facility] CenterProthrombin Vsnz4367-99-36 11:49:00* Test Item Value Reference Range Interpretation Comments Prothrombin Time (test code = 5902-2) 12.3 11.9-14.5 [facility] CenterProthromb Time International Ratio 2018-07-03 11:49:00* Test Item Value Reference Range Interpretation Comments Prothromb Time International Ratio (test code = 6301-6) 0.87 Oral Anticoagulant Therapy INR Values:1. Low Intensity Therapy 1.5 - 2.02 . Moderate Intensity Therapy 2.0 - 3.03. High Intensity Therapy(1) 2.5 - 3. 54. High Intensity Therapy(2) 3.0 - 4.05. Panic Value INR > 5.0 [facility] CenterActivated Partial Thromboplast Time 2018-07-03 11:49:00* Test Item Value Reference Range Interpretation Comments Activated Partial Thromboplast Time (test code = 32005-7) 30.1 23.8-35.5 [facility] CenterUrine [id number] 11:46:00* Test Item Value Reference Range Interpretation Comments Urine Blood (test code = 99290-6) NEGATIVE NEGATIVE [facility] CenterUrine [id number] 11:46:00* Test Item Value Reference Range Interpretation Comments Urine WBC (test code = 5821-4) 6-10 0-5 H [facility] CenterUrine [id number] 11:46:00* Test Item Value Reference Range Interpretation Comments Urine RBC (test code = 07353-6) NONE 0-5 [facility] CenterUrine Lzslchsv1865-05-64 11:46:00* Test Item Value Reference Range Interpretation Comments Urine Bacteria (test code = 96710-7) MANY NONE H [facility] CenterUrine Epithelial Dbzve2700-01-31 11:46:00 * Test Item Value Reference Range Interpretation Comments Urine Epithelial Cells (test code = 31325-5) MANY NONE [facility] CenterCreatine Kinase [id number] 11:45:00* Test Item Value Reference Range Interpretation Comments Creatine Kinase MB (test code = 24653-5) 1.70 0-5.0 [facility] CenterTroponin [id number] 11:45:00* Test Item Value Reference Range Interpretation Comments Troponin I (test code = ITU7775) 0.003 0-0.300 [facility] CenterCHEST 2 [id number] 11:42:00 [facility] [address] [place] [address] Patient Name: GHANSHYAM SCHROEDER MR #: [id number] : 1950 Age/Sex: 67/F Req #: [id number] Adm Physician: Ordered by: YANET COATS NP Report #: [id number] Location: ER Room/Bed: Procedure: 1238-2016 D X/CHEST 2 VIEWS Exam Date: 07/03/18 [...] 1144 COPY TO: YANET COATS NP Sodium Rwkre3118-43-13 11:38:00* Test Item Value Reference Range Interpretation Comments Sodium Level (test code = 2951-2) 137 136-145 [facility] CenterPotassium Dglmx1258-34-27 11:38:00* Test Item Value Reference Range Interpretation Comments Potassium Level (test code = 2823-3) 3.5 3.5-5.1 [facility] CenterChloride Lzysn8482-62-84 11:38:00* Test Item Value Reference Range Interpretation Comments Chloride Level (test code = 2075-0) 99 98-107 [facility] CenterCarbon Dioxide Dbtlc9838-81-06 11:38:00* Test Item Value Reference Range Interpretation Comments Carbon Dioxide Level (test code = 2028-9) 26 22-29 [facility] CenterAnion [id number] 11:38:00* Test Item Value Reference Range Interpretation Comments Anion Gap (test code = 39586-0) 15.5 8-16 [facility] CenterBlood Urea Mtjceehc1354-01-32 11:38:00* Test Item Value Reference Range Interpretation Comments Blood Urea Nitrogen (test code = 3094-0) 19 7-26 [facility] CenterCreatinine2019-03-14 11:38:00* Test Item Value Reference Range Interpretation Comments Creatinine (test code = 2160-0) 1.19 0.57-1.11 H [facility] CenterBUN/Creatinine Bjjwg6359-33-39 11:38:00* Test Item Value Reference Range Interpretation Comments BUN/Creatinine Ratio (test code = 3097-3) 16 6-25 [facility] CenterEstimat Glomerular Filtration Rate 2018-07-03 11:38:00* Test Item Value Reference Range Interpretation Comments Estimat Glomerular Filtration Rate (test code = 808877147) 55 >60 L Ranges were taken from the National Kidney Disease Education Program and the [facility] Foundation literature.Reference ranges:60 or greater: Lgtndf05-98 ( for 3 consecutive months): Chronic kidney disease 15 or less: Kidney failureEnnis Regional Medical CenterGlucose Rhcqx8465-13-18 11:38:00* Test Item Value Reference Range Interpretation Comments Glucose Level (test code = FWG0866) 188 74-118 H [facility] CenterCalcium Uoyeg0655-28-28 11:38:00* Test Item Value Reference Range Interpretation Comments Calcium Level (test code = 62672-0) 9.1 8.4-10.2 [facility] CenterMagnesium Hizdx3704-80-16 11:38:00* Test Item Value Reference Range Interpretation Comments Magnesium Level (test code = 70402-4) 2.4 1.3-2.1 H [facility] CenterTotal Izjmvcrrp3386-92-93 11:38:00* Test Item Value Reference Range Interpretation Comments Total Bilirubin (test code = 1975-2) 0.5 0.2-1.2 [facility] CenterAspartate Amino Transf (AST/SGOT) 2018-07-03 11:38:00* Test Item Value Reference Range Interpretation Comments Aspartate Amino Transf (AST/SGOT) (test code = Aspartate Amino Transf (AST/SGOT)) 17 5-34 [facility] CenterAlanine Aminotransferase (ALT/SGPT) 2018-07-03 11:38:00* Test Item Value Reference Range Interpretation Comments Alanine Aminotransferase (ALT/SGPT) (test code = 1742-6) 16 0-55 [facility] CenterTotal Ktffqqz2425-04-09 11:38:00* Test Item Value Reference Range Interpretation Comments Total Protein (test code = 2885-2) 7.5 6.5-8.1 [facility] CenterAlbumin2019-03-14 11:38:00* Test Item Value Reference Range Interpretation Comments Albumin (test code = 1751-7) 3.5 3.5-5.0 [facility] CenterGlobulin2019-03-14 11:38:00* Test Item Value Reference Range Interpretation Comments Globulin (test code = 27002-8) 4.0 2.3-3.5 H [facility] CenterAlbumin/Globulin Byskq4178-26-89 11:38:00 * Test Item Value Reference Range Interpretation Comments Albumin/Globulin Ratio (test code = 1759-0) 0.9 0.8-2.0 [facility] CenterAlkaline Vbotvemiany2135-54-78 11:38:00* Test Item Value Reference Range Interpretation Comments Alkaline Phosphatase (test code = 6768-6) 95 40-150 [facility] CenterCreatine Dbvnja5408-06-95 11:38:00* Test Item Value Reference Range Interpretation Comments Creatine Kinase (test code = 2157-6) 187 29-168 H [facility] CenterAmylase Zdctj5764-80-14 11:38:00* Test Item Value Reference Range Interpretation Comments Amylase Level (test code = 1798-8) 82 25-125 [facility] CenterLipase2019-03-14 11:38:00* Test Item Value Reference Range Interpretation Comments Lipase (test code = 3040-3) 38 8-78 [facility] CenterUrine Muwqf6037-14-59 11:34:00* Test Item Value Reference Range Interpretation Comments Urine Color (test code = 5778-6) YELLOW YELLOW [facility] CenterUrine Nhvucpx3202-90-66 11:34:00* Test Item Value Reference Range Interpretation Comments Urine Clarity (test code = 45272-3) CLEAR CLEAR [facility] CenterUrine Specific Mofwvkn9878-48-65 11:34:00 * Test Item Value Reference Range Interpretation Comments Urine Specific [place] (test code = 5811-5) 1.020 1.010-1.02 5 [facility] CenterUrine [id number] 11:34:00* Test Item Value Reference Range Interpretation Comments Urine pH (test code = 22147-3) 6 5-7 [facility] CenterUrine Leukocyte Aaogcsdx5746-69-92 11:34:00* Test Item Value Reference Range Interpretation Comments Urine Leukocyte Esterase (test code = 5799-2) NEGATIVE NEGATIVE [facility] CenterUrine Aipyusd9012-51-30 11:34:00* Test Item Value Reference Range Interpretation Comments Urine Nitrite (test code = 97186-9) NEGATIVE NEGATIVE [facility] CenterUrine Ufdzywl2392-82-44 11:34:00* Test Item Value Reference Range Interpretation Comments Urine Protein (test code = 5804-0) NEGATIVE NEGATIVE [facility] CenterUrine Glucose (UA)2018-07-03 11:34:00* Test Item Value Reference Range Interpretation Comments Urine Glucose (UA) (test code = 2349-9) NEGATIVE NEGATIVE [facility] CenterUrine Xpawttb9634-99-66 11:34:00* Test Item Value Reference Range Interpretation Comments Urine Ketones (test code = 38937-5) NEGATIVE NEGATIVE [facility] CenterUrine Gzonirvdhomv0088-88-85 11:34:00* Test Item Value Reference Range Interpretation Comments Urine Urobilinogen (test code = 16894-8) 0.2 0.2-1 [facility] CenterUrine Ziudipauu1200-71-61 11:34:00* Test Item Value Reference Range Interpretation Comments Urine Bilirubin (test code = 1978-6) NEGATIVE NEGATIVE [facility] CenterWhite Blood Dqtry5257-60-10 11:26:00* Test Item Value Reference Range Interpretation Comments White Blood Count (test code = 6690-2) 8.90 4.8-10.8 [facility] CenterRed Blood Xjwem7417-23-49 11:26:00* Test Item Value Reference Range Interpretation Comments Red Blood Count (test code = 789-8) 5.26 3.6-5.1 H [facility] CenterHemoglobin2019-03-14 11:26:00* Test Item Value Reference Range Interpretation Comments Hemoglobin (test code = 97494-8) 12.8 12.0-16.0 [facility] CenterHematocrit2019-03-14 11:26:00* Test Item Value Reference Range Interpretation Comments Hematocrit (test code = 4544-3) 40.9 34.2-44.1 [facility] CenterMean Corpuscular Jjmilq0558-76-80 11:26:00* Test Item Value Reference Range Interpretation Comments Mean Corpuscular Volume (test code = 787-2) 77.8 81-99 L [facility] CenterMean Corpuscular Oxzvumtlbt0420-32-26 11:26:00* Test Item Value Reference Range Interpretation Comments Mean Corpuscular Hemoglobin (test code = 785-6) 24.3 28-32 L [facility] CenterMean Corpuscular Hemoglobin Concent 2018-07-03 11:26:00* Test Item Value Reference Range Interpretation Comments Mean Corpuscular Hemoglobin Concent (test code = 786-4) 31.3 31-35 [facility] CenterRed Cell Distribution Qyjwo3459-19-88 11:26:00* Test Item Value Reference Range Interpretation Comments Red Cell Distribution Width (test code = 49405-9) 15.2 11.7 -14.4 H [facility] CenterPlatelet Ivaxz8977-13-75 11:26:00* Test Item Value Reference Range Interpretation Comments Platelet Count (test code = 777-3) 250 140-360 [facility] CenterNeutrophils (%) (Auto)2018-07-03 11:26:00 * Test Item Value Reference Range Interpretation Comments Neutrophils (%) (Auto) (test code = 25564-1) 64.3 38.7-80.0 [facility] CenterLymphocytes (%) (Auto)2018-07-03 11:26:00 * Test Item Value Reference Range Interpretation Comments Lymphocytes (%) (Auto) (test code = 736-9) 25.1 18.0-39.1 [facility] CenterMonocytes (%) (Auto)2018-07-03 11:26:00* Test Item Value Reference Range Interpretation Comments Monocytes (%) (Auto) (test code = 5905-5) 7.1 4.4-11.3 [facility] CenterEosinophils (%) (Auto)2018-07-03 11:26:00 * Test Item Value Reference Range Interpretation Comments Eosinophils (%) (Auto) (test code = 713-8) 2.8 0.0-6.0 [facility] CenterBasophils (%) (Auto)2018-07-03 11:26:00* Test Item Value Reference Range Interpretation Comments Basophils (%) (Auto) (test code = 706-2) 0.3 0.0-1.0 [facility] CenterIM GRANULOCYTES %2018-07-03 11:26:00* Test Item Value Reference Range Interpretation Comments IM GRANULOCYTES % (test code = IM GRANULOCYTES %) 0.4 0.0- 1.0 [facility] CenterNeutrophils # (Auto)2018-07-03 11:26:00* Test Item Value Reference Range Interpretation Comments Neutrophils # (Auto) (test code = 751-8) 5.7 2.1-6.9 [facility] CenterLymphocytes # (Auto)2018-07-03 11:26:00* Test Item Value Reference Range Interpretation Comments Lymphocytes # (Auto) (test code = 49671-6) 2.2 1.0-3.2 [facility] CenterMonocytes # (Auto)2018-07-03 11:26:00* Test Item Value Reference Range Interpretation Comments Monocytes # (Auto) (test code = 742-7) 0.6 0.2-0.8 [facility] CenterEosinophils # (Auto)2018-07-03 11:26:00* Test Item Value Reference Range Interpretation Comments Eosinophils # (Auto) (test code = 711-2) 0.3 0.0-0.4 [facility] CenterBasophils # (Auto)2018-07-03 11:26:00* Test Item Value Reference Range Interpretation Comments Basophils # (Auto) (test code = 704-7) 0.0 0.0-0.1 [facility] CenterAbsolute Immature Granulocyte (auto 2018-07-03 11:26:00* Test Item Value Reference Range Interpretation Comments Absolute Immature Granulocyte (auto (corey t code = Absolute Immature Granulocyte (auto) 0.04 0-0.1 [facility] CenterPOCT-GLUCOSE [id number] 11:51:00* Test Item Value Reference Range Interpretation Comments POC-GLUCOSE METER (BHUPINDERAKER) (test code = 1538) 124 mg/dL 70-110 H TESTED AT [facility] [address] [facility] [address] Creatine Kinase [id number] 15:21:00* Test Item Value Reference Range Interpretation Comments Creatine Kinase MB (test code = 12336-2) 1.40 0-5.0 [facility] CenterTroponin [id number] 15:21:00* Test Item Value Reference Range Interpretation Comments Troponin I (test code = VGH0499) 0.005 0-0.300 [facility] Fmott1499-34-95 15:18:00* Test Item Value Reference Range Interpretation Comments Sodium Level (test code = 2951-2) 141 136-145 [facility] CenterPotassium Tfifg4648-38-27 15:18:00* Test Item Value Reference Range Interpretation Comments Potassium Level (test code = 2823-3) 4.1 3.5-5.1 [facility] CenterChloride Csfmb5996-08-84 15:18:00* Test Item Value Reference Range Interpretation Comments Chloride Level (test code = 2075-0) 102 98-107 [facility] CenterCarbon Dioxide Hzqhj1487-58-23 15:18:00* Test Item Value Reference Range Interpretation Comments Carbon Dioxide Level (test code = 2028-9) 27 22-29 [facility] CenterAnion Uma0737-09-33 15:18:00* Test Item Value Reference Range Interpretation Comments Anion Gap (test code = 38797-7) 16.1 8-16 H [facility] CenterBlood Urea Qfxqsinz6015-84-07 15:18:00* Test Item Value Reference Range Interpretation Comments Blood Urea Nitrogen (test code = 3094-0) 17 7-26 [facility] CenterCreatinine2018-03-06 15:18:00* Test Item Value Reference Range Interpretation Comments Creatinine (test code = 2160-0) 1.12 0.57-1.11 H [facility] CenterBUN/Creatinine Mkkqs7064-15-76 15:18:00* Test Item Value Reference Range Interpretation Comments BUN/Creatinine Ratio (test code = 3097-3) 15 6-25 [facility] CenterEstimat Glomerular Filtration Rate 2017-06-25 15:18:00* Test Item Value Reference Range Interpretation Comments Estimat Glomerular Filtration Rate (test code = 31489-9) 59 >60 L Ranges were taken from the National Kidney Disease Education Program and the [facility] literature.Reference ranges:60 or greater: Vryhed31-48 ( for 3 consecutive months): Chronic kidney disease 15 or less: Kidney failureEnnis Regional Medical CenterGlucose Susqb6415-05-64 15:18:00* Test Item Value Reference Range Interpretation Comments Glucose Level (test code = IIP3114) 100 74-118 [facility] CenterCalcium Nvoba9139-35-49 15:18:00* Test Item Value Reference Range Interpretation Comments Calcium Level (test code = 66138-0) 9.2 8.4-10.2 [facility] CenterTotal Wnqgcexrz0828-78-15 15:18:00* Test Item Value Reference Range Interpretation Comments Total Bilirubin (test code = 1975-2) 0.5 0.2-1.2 [facility] CenterAspartate Amino Transf (AST/SGOT) 2017-06-25 15:18:00* Test Item Value Reference Range Interpretation Comments Aspartate Amino Transf (AST/SGOT) (test code = Aspartate Amino Transf (AST/SGOT)) 23 5-34 [facility] CenterAlanine Aminotransferase (ALT/SGPT) 2017-06-25 15:18:00* Test Item Value Reference Range Interpretation Comments Alanine Aminotransferase (ALT/SGPT) (test code = 1742-6) 20 0-55 [facility] CenterTotal Vkhvemr1462-85-12 15:18:00* Test Item Value Reference Range Interpretation Comments Total Protein (test code = 2885-2) 8.1 6.5-8.1 [facility] CenterAlbumin2018-03-06 15:18:00* Test Item Value Reference Range Interpretation Comments Albumin (test code = 1751-7) 3.8 3.5-5.0 [facility] CenterGlobulin2018-03-06 15:18:00* Test Item Value Reference Range Interpretation Comments Globulin (test code = 77658-1) 4.3 2.3-3.5 H [facility] CenterAlbumin/Globulin Acwrl3740-39-60 15:18:00 * Test Item Value Reference Range Interpretation Comments Albumin/Globulin Ratio (test code = 1759-0) 0.9 0.8-2.0 [facility] CenterAlkaline Ksquuoldgfr2879-68-83 15:18:00* Test Item Value Reference Range Interpretation Comments Alkaline Phosphatase (test code = 6768-6) 85 40-150 [facility] CenterCreatine Lteigc0212-13-41 15:18:00* Test Item Value Reference Range Interpretation Comments Creatine Kinase (test code = 2157-6) 163 29-168 [facility] CenterProthrombin Pnwb6814-94-26 15:06:00* Test Item Value Reference Range Interpretation Comments Prothrombin Time (test code = 5902-2) 12.2 11.9-14.5 [facility] CenterProthromb Time International Ratio 2017-06-25 15:06:00* Test Item Value Reference Range Interpretation Comments Prothromb Time International Ratio (test code = 6301-6) 0.98 Oral Anticoagulant Therapy INR Values:1. Low Intensity Therapy 1.5 - 2.02 . Moderate Intensity Therapy 2.0 - 3.03. High Intensity Therapy(1) 2.5 - 3. 54. High Intensity Therapy(2) 3.0 - 4.05. Panic Value INR > 5.0 [facility] CenterActivated Partial Thromboplast Time 2017-06-25 15:06:00* Test Item Value Reference Range Interpretation Comments Activated Partial Thromboplast Time (test code = 22789-5) 25.5 23.8-35.5 [facility] CenterWhite Blood Lmvxt9997-94-71 14:47:00* Test Item Value Reference Range Interpretation Comments White Blood Count (test code = 6690-2) 9.16 4.8-10.8 [facility] CenterRed Blood Amvrm0717-71-23 14:47:00* Test Item Value Reference Range Interpretation Comments Red Blood Count (test code = 789-8) 5.23 3.6-5.1 H [facility] CenterHemoglobin2018-03-06 14:47:00* Test Item Value Reference Range Interpretation Comments Hemoglobin (test code = 21391-4) 12.9 12.0-16.0 [facility] CenterHematocrit2018-03-06 14:47:00* Test Item Value Reference Range Interpretation Comments Hematocrit (test code = 4544-3) 40.6 34.2-44.1 [facility] CenterMean Corpuscular Xviesa3055-61-25 14:47:00* Test Item Value Reference Range Interpretation Comments Mean Corpuscular Volume (test code = 787-2) 77.6 81-99 L [facility] CenterMean Corpuscular Iljghwhhby3977-43-83 14:47:00* Test Item Value Reference Range Interpretation Comments Mean Corpuscular Hemoglobin (test code = 785-6) 24.7 28-32 L [facility] CenterMean Corpuscular Hemoglobin Concent 2017-06-25 14:47:00* Test Item Value Reference Range Interpretation Comments Mean Corpuscular Hemoglobin Concent (test code = 786-4) 31.8 31-35 [facility] CenterRed Cell Distribution Ztkta3014-67-13 14:47:00* Test Item Value Reference Range Interpretation Comments Red Cell Distribution Width (test code = 63554-0) 15.7 11.7 -14.4 H [facility] CenterPlatelet Ozvcu0335-89-51 14:47:00* Test Item Value Reference Range Interpretation Comments Platelet Count (test code = 777-3) 233 140-360 [facility] CenterNeutrophils (%) (Auto)2017-06-25 14:47:00 * Test Item Value Reference Range Interpretation Comments Neutrophils (%) (Auto) (test code = 81150-3) 57.4 38.7-80.0 [facility] CenterLymphocytes (%) (Auto)2017-06-25 14:47:00 * Test Item Value Reference Range Interpretation Comments Lymphocytes (%) (Auto) (test code = 736-9) 30.8 18.0-39.1 [facility] CenterMonocytes (%) (Auto)2017-06-25 14:47:00* Test Item Value Reference Range Interpretation Comments Monocytes (%) (Auto) (test code = 5905-5) 8.5 4.4-11.3 [facility] CenterEosinophils (%) (Auto)2017-06-25 14:47:00 * Test Item Value Reference Range Interpretation Comments Eosinophils (%) (Auto) (test code = 713-8) 2.7 0.0-6.0 [facility] CenterBasophils (%) (Auto)2017-06-25 14:47:00* Test Item Value Reference Range Interpretation Comments Basophils (%) (Auto) (test code = 706-2) 0.3 0.0-1.0 [facility] CenterIM GRANULOCYTES %2017-06-25 14:47:00* Test Item Value Reference Range Interpretation Comments IM GRANULOCYTES % (test code = IM GRANULOCYTES %) 0.3 0.0- 1.0 [facility] CenterNeutrophils # (Auto)2017-06-25 14:47:00* Test Item Value Reference Range Interpretation Comments Neutrophils # (Auto) (test code = 751-8) 5.3 2.1-6.9 [facility] CenterLymphocytes # (Auto)2017-06-25 14:47:00* Test Item Value Reference Range Interpretation Comments Lymphocytes # (Auto) (test code = 52827-1) 2.8 1.0-3.2 [facility] CenterMonocytes # (Auto)2017-06-25 14:47:00* Test Item Value Reference Range Interpretation Comments Monocytes # (Auto) (test code = 742-7) 0.8 0.2-0.8 [facility] CenterEosinophils # (Auto)2017-06-25 14:47:00* Test Item Value Reference Range Interpretation Comments Eosinophils # (Auto) (test code = 711-2) 0.3 0.0-0.4 [facility] CenterBasophils # (Auto)2017-06-25 14:47:00* Test Item Value Reference Range Interpretation Comments Basophils # (Auto) (test code = 704-7) 0.0 0.0-0.1 [facility] CenterAbsolute Immature Granulocyte (auto 2017-06-25 14:47:00* Test Item Value Reference Range Interpretation Comments Absolute Immature Granulocyte (auto (corey t code = Absolute Immature Granulocyte (auto) 0.03 0-0.1 [facility] CenterUrine [id number] 14:22:00* Test Item Value Reference Range Interpretation Comments Urine WBC (test code = 5821-4) NONE 0-5 [facility] CenterUrine [id number] 14:22:00* Test Item Value Reference Range Interpretation Comments Urine RBC (test code = 87607-3) NONE 0-5 [facility] CenterUrine Nlrfkrhs6238-10-82 14:22:00* Test Item Value Reference Range Interpretation Comments Urine Bacteria (test code = 21776-1) NONE NONE [facility] CenterUrine Epithelial Gdczz9712-12-33 14:22:00 * Test Item Value Reference Range Interpretation Comments Urine Epithelial Cells (test code = 03857-3) FEW NONE [facility] CenterUrine Ocmsj2209-87-43 14:06:00* Test Item Value Reference Range Interpretation Comments Urine Color (test code = 5778-6) YELLOW YELLOW [facility] CenterUrine Jmxcbvf1895-28-87 14:06:00* Test Item Value Reference Range Interpretation Comments Urine Clarity (test code = 82193-0) CLEAR CLEAR [facility] CenterUrine Specific Iykbqtq9107-98-13 14:06:00 * Test Item Value Reference Range Interpretation Comments Urine Specific [place] (test code = 5811-5) 1.010 1.010-1.02 5 [facility] CenterUrine [id number] 14:06:00* Test Item Value Reference Range Interpretation Comments Urine pH (test code = 68049-3) 6.5 5-7 [facility] CenterUrine Leukocyte Xuclnvaq4922-48-60 14:06:00* Test Item Value Reference Range Interpretation Comments Urine Leukocyte Esterase (test code = 5799-2) NEGATIVE NEGATIVE [facility] CenterUrine Fnfimvi3643-49-91 14:06:00* Test Item Value Reference Range Interpretation Comments Urine Nitrite (test code = 52424-9) NEGATIVE NEGATIVE [facility] CenterUrine Jzpalpm8839-07-31 14:06:00* Test Item Value Reference Range Interpretation Comments Urine Protein (test code = 5804-0) NEGATIVE NEGATIVE [facility] CenterUrine Glucose (UA)2017-06-25 14:06:00* Test Item Value Reference Range Interpretation Comments Urine Glucose (UA) (test code = 2349-9) NEGATIVE NEGATIVE [facility] CenterUrine Lvocogv8742-34-30 14:06:00* Test Item Value Reference Range Interpretation Comments Urine Ketones (test code = 87452-2) NEGATIVE NEGATIVE [facility] CenterUrine Owrusgzotqww3560-61-84 14:06:00* Test Item Value Reference Range Interpretation Comments Urine Urobilinogen (test code = 84363-2) 0.2 0.2-1 [facility] CenterUrine Zhwyukojp4977-08-99 14:06:00* Test Item Value Reference Range Interpretation Comments Urine Bilirubin (test code = 1978-6) NEGATIVE NEGATIVE [facility] CenterUrine Wdpkk2179-03-23 14:06:00* Test Item Value Reference Range Interpretation Comments Urine Blood (test code = 15485-9) NEGATIVE NEGATIVE [facility] CenterUrine Twujh2278-58-97 20:15:00* Test Item Value Reference Range Interpretation Comments Urine Mucus (test code = 8247-9) FEW RARE H [facility] CenterAmylase Qrfuy8698-34-48 20:07:00* Test Item Value Reference Range Interpretation Comments Amylase Level (test code = 1798-8) 76 25-125 [facility] CenterLipase2017-10-03 20:07:00* Test Item Value Reference Range Interpretation Comments Lipase (test code = 3040-3) 21 8-78 [facility] CenterCT BRAIN WO [facility] [address] [address] Patient Name: GHANSHYAM SCHROEDER MR #: [id number] : 1950 Age/Sex: 66/F Req #: [id number] Adm Physician: Ordered by: YANET COATS NP Report #: [id number] Location: ER Room/Bed: Procedure: [id number] CT/CT BRAIN WO Exam Date: 0 06/25/17 [...] Signed By: NANCY WILLAMS MD on 06/25/17 4151 Transcribed By: BRYANT on 06/25 5808 COPY TO: YANET COATS NP CT ABDOMEN/PELVIS WO [place] [address] Patient Name: GHANSHYAM SCHROEDER MR #: [id number] : 0 1950 Age/Sex: 66[id number] Req #: [id number] Adm Physician: Ordered by: MELIA SCHULTZ MD Report #: [id number] Location: ER Ro om/Bed: Procedure: [id number] CT/CT ABDOMEN/PELVIS WO Exam Date: 01/22/17 Exam [...] 10:13 PM Dictated By: WILLIAM AGUILAR MD [facility] Signed By: WILLIAM AGUILAR MD on 01/22/172212 Transcribed By: BRYANT on 01/22/172212 COPY TO: MELIA SCHULTZ MD
[2020-02-06] MEDS ORDERED: ASPIRIN 81 MG CHEW TAB PO ONE (15:00)
[2020-02-06 15:02] LABS: BASOPHILS # (AUTO) 0.1 (0.0-0.1); BASOPHILS % 0.7 % (0.0-1.0); EOSINOPHILS # (AUTO) 0.3 (0.0-0.4); EOSINOPHILS % 3.3 % (0.0-6.0); HEMATOCRIT 44.2 % (34.2-44.1); HEMOGLOBIN 13.6 g/dL (12.0-16.0); LYMPHOCYTES # (AUTO) 2.6 (1.0-3.2); LYMPHOCYTES % 28.8 % (18.0-39.1); MEAN CORPUSCULAR HEMOGLOBIN 24.6 pg (28-32); MEAN CORPUSCULAR HGB CONC 30.8 g/dL (31-35); MEAN CORPUSCULAR VOLUME 79.9 fL (81-99); MONOCYTES # (AUTO) 0.7 (0.2-0.8); MONOCYTES % 8.1 % (4.4-11.3); NEUTROPHILS # (AUTO) 5.3 (2.1-6.9); NEUTROPHILS % 58.8 % (38.7-80.0); PLATELET COUNT 279 x10e3/uL (140-360); RED BLOOD COUNT 5.53 x10e6/uL (3.6-5.1); RED CELL DISTRIBUTION WIDTH 15.4 % (11.7-14.4)
[2020-02-06 15:06] LABS: INR 0.92; PROTHROMBIN TIME 12.8 seconds (11.9-14.5)
[2020-02-06 15:07] LABS: PARTIAL THROMBOPLASTIN TIME 28.4 seconds (23.8-35.5)
[2020-02-06 15:15] LABS: ALBUMIN 3.8 g/dL (3.5-5.0); ALBUMIN/GLOBULIN RATIO 1.1 (0.8-2.0); ANION GAP 15.2 mmol/L (8-16); CALCIUM 9.4 mg/dL (8.4-10.2); CREATININE, SERUM 1.12 mg/dL (0.57-1.11); POTASSIUM 4.2 mmol/L (3.5-5.1)
[2020-02-06 15:18] LABS: BILIRUBIN,URINE NEGATIVE (NEGATIVE); CLARITY,URINE CLEAR (CLEAR); COLOR,URINE YELLOW (YELLOW); KETONES,URINE NEGATIVE (NEGATIVE); LEUKOCYTE ESTERASE ,URINE NEGATIVE (NEGATIVE); NITRITE,URINE NEGATIVE (NEGATIVE); PROTEIN,URINE DIPSTICK NEGATIVE (NEGATIVE); URINE UROBILINOGEN 0.2 mg/dL (0.2 - 1)
[2020-02-06 15:18] LABS: CREATINE KINASE MB 1.8 ng/mL (0-5.0)
[2020-02-06 16:29] LABS: BACTERIA,URINE FEW /HPF; EPITHELIAL CELLS,URINE FEW /LPF; RBC,URINE 0-5 /HPF (0-5); WBC,URINE (MAN) 0-5 /HPF (0-5)
--- NOTE | 2020-02-06 16:38 | Diagnostic Imaging Report ---
EXAMINATION: CHEST SINGLE (PORTABLE) INDICATION: chest pain COMPARISON: Chest radiograph 05-06-2019. FINDINGS: TUBES and LINES: None. LUNGS: Lungs are well inflated. There is no evidence of pneumonia or pulmonary edema. PLEURA: No pleural effusion or pneumothorax. HEART AND MEDIASTINUM: The cardiomediastinal silhouette is unremarkable. BONES AND SOFT TISSUES: No acute osseous lesion. Soft tissues are unremarkable. UPPER ABDOMEN: No free air under the diaphragm. IMPRESSION: No acute thoracic abnormality. Signed by: Dr. Kevin Larios MD on 02/06/2020 4:35 PM
--- NOTE | 2020-02-06 17:05 | Emergency Department Note ---
History of Present Illnes History of Present Illness Chief Complaint: Chest Pain History of Present Illness This is a 69 year old female COUGH SINCE APRIL. PATIENT COVID NEGATIVE - TESTED DAILY AT WORK. 0830 AM BEGAN HAVING BILATERAL CHEST PAIN DESCRIBED ACHY, RADIATES TO NECK WITH ASSOC SOB/DIAPHORESIS, POSITIVE NAUSEA. Historian: Patient Arrival Mode: HFD Additional Treatment ENERGY EFFICIENCY FINANCE MANAGER: NONE Plate Put In Worker Required: No Onset (how long ago): hour(s) Location: ANTERIOR CHEST Quality: HEAVINESS/PRESSURE Radiation: Reports neck Severity: moderate Onset quality: sudden Timing of current episode: intermittent Progression: waxing and waning Chronicity: new Relieving factors: none Exacerbating factors: none Associated symptoms: Reports denies other symptoms Past Medical/Family History Physician Review I have reviewed the patient's past medical and family history. Any updates have been documented here. Past Medical History Recent Fever: No Clinical Suspicion of Infectio: No New/Unexplained Change in Ment: No Past Medical History: Hypertension, Diabetes, COPD, Asthma, CAD, Cancer, Anemia, Hyperlipedemia Other Medical History: BREAST CA,( LEFT LUMPECTOMY) HEART MURMUR TRIGEMINAL NEURALGIA Past Surgical History: Cholecysctectomy, Hysterectomy, PCI, Tubal Ligation, Lumpectomy Other Surgery: TRIGEMINAL NEURALGIA SURGERY 20 YEARS AGO PARTIAL HYSTERECTOMY Social History Smoking Cessation: Never Smoker Counseling Performed: No Alcohol Use: None Any Illegal Drug Use: No TB Exposure/Symptoms: No Physically hurt or threatened: No Family History Family history of heart diseas: Yes Other Last Tetanus: UTD Any Pre-Existing Lines (PICC,: No Review of Systems Review of Systems Constitutional: Reports no symptoms EENTM: Reports no symptoms Cardiovascular: Reports as per HPI Respiratory: Reports as per HPI Gastrointestinal: Reports as per HPI, Reports nausea Genitourinary: Reports no symptoms Musculoskeletal: Reports no symptoms Integumentary: Reports no symptoms Neurological: Reports no symptoms Psychological: Reports no symptoms Endocrine: Reports no symptoms Hematological/Lymphatic: Reports no symptoms Physical Exam Related Data Allergies: Coded Allergies: zolpidem (Verified Allergy, Intermediate, HALLUCINATIONS, 01/26/20) dulaglutide (Verified Allergy, Mild, 01/26/20) letrozole (Verified Allergy, Mild, 01/26/20) aspirin (Unverified Allergy, Unknown, 01/26/20) codeine (Verified Allergy, Unknown, 01/26/20) hydrocodone (Verified Allergy, Unknown, 01/26/20) iodine (Verified Allergy, Unknown, 07/03/18) oxycodone (Unverified Allergy, Unknown, 07/03/18) Uncoded Allergies: ADHESIVE TAPE (Allergy, Unknown, 02/05/16) Triage Vital Signs Vital Signs Date Time Temp Pulse Resp B/P (MAP) Pulse Ox O2 Delivery O2 Flow Rate FiO2 02/06/20 14:27 99.1 97 18 184/68 100 Vital signs reviewed: Yes Physical Exam CONSTITUTIONAL Constitutional: Present well-developed, Present well-nourished HENT HENT: Present normocephalic, Present atraumatic, Present oropharynx clear/moist, Present nose normal HENT L/R: Present left ext ear normal, Present right ext ear normal EYES Eyes: Reports PERRL, Reports conjunctivae normal NECK Neck: Present ROM normal PULMONARY Pulmonary: Present effort normal, Present breath sounds normal CARDIOVASCULAR Cardiovascular: Present regular rhythm, Present heart sounds normal, Present capillary refill normal, Present normal rate GASTROINTESTINAL Abdominal: Present soft, Present nontender, Present bowel sounds normal GENITOURINARY Genitourinary: Present exam deferred SKIN Skin: Present warm, Present dry MUSCULOSKELETAL Musculoskeletal: Present ROM normal NEUROLOGICAL Neurological: Present alert, Present oriented x 3, Present no gross motor or sensory deficits PSYCHOLOGICAL Psychological: Present mood/affect normal, Present judgement normal Results Laboratory Result Diagram: 02/06/20 1431 02/06/20 1431 Laboratory Laboratory Tests Test 02/06/20 14:31 02/06/20 14:20 White Blood Count 9.02 x10e3/uL (4.8-10.8) Red Blood Count 5.53 x10e6/uL (3.6-5.1) Hemoglobin 13.6 g/dL (12.0-16.0) Hematocrit 44.2 % (34.2-44.1) Mean Corpuscular Volume 79.9 fL (81-99) Mean Corpuscular Hemoglobin 24.6 pg (28-32) Mean Corpuscular Hemoglobin Concent 30.8 g/dL (31-35) Red Cell Distribution Width 15.4 % (11.7-14.4) Platelet Count 279 x10e3/uL (140-360) Neutrophils (%) (Auto) 58.8 % (38.7-80.0) Lymphocytes (%) (Auto) 28.8 % (18.0-39.1) Monocytes (%) (Auto) 8.1 % (4.4-11.3) Eosinophils (%) (Auto) 3.3 % (0.0-6.0) Basophils (%) (Auto) 0.7 % (0.0-1.0) Neutrophils # (Auto) 5.3 (2.1-6.9) Lymphocytes # (Auto) 2.6 (1.0-3.2) Monocytes # (Auto) 0.7 (0.2-0.8) Eosinophils # (Auto) 0.3 (0.0-0.4) Basophils # (Auto) 0.1 (0.0-0.1) Absolute Immature Granulocyte (auto 0.03 x10e3/uL (0-0.1) Prothrombin Time 12.8 seconds (11.9-14.5) Prothromb Time International Ratio 0.92 Activated Partial Thromboplast Time 28.4 seconds (23.8-35.5) Sodium Level 140 mmol/L (136-145) Potassium Level 4.2 mmol/L (3.5-5.1) Chloride Level 103 mmol/L (98-107) Carbon Dioxide Level 26 mmol/L (22-29) Anion Gap 15.2 mmol/L (8-16) Blood Urea Nitrogen 18 mg/dL (7-26) Creatinine 1.12 mg/dL (0.57-1.11) Estimat Glomerular Filtration Rate 59 ML/MIN (60-) BUN/Creatinine Ratio 16 (6-25) Glucose Level 182 mg/dL (74-118) Calcium Level 9.4 mg/dL (8.4-10.2) Total Bilirubin 0.4 mg/dL (0.2-1.2) Aspartate Amino Transf (AST/SGOT) 20 IU/L (5-34) Alanine Aminotransferase (ALT/SGPT) 19 IU/L (0-55) Alkaline Phosphatase 84 IU/L (40-150) Creatine Kinase 188 IU/L (29-168) Creatine Kinase MB 1.80 ng/mL (0-5.0) Troponin I 0.002 ng/mL (0-0.300) Total Protein 7.2 g/dL (6.5-8.1) Albumin 3.8 g/dL (3.5-5.0) Globulin 3.4 g/dL (2.3-3.5) Albumin/Globulin Ratio 1.1 (0.8-2.0) Urine Color Yellow (YELLOW) Urine Clarity Clear (CLEAR) Urine pH 5.5 (5 - 7) Urine Specific [place] 1.025 (1.010-1.025) Urine Protein Negative (NEGATIVE) Urine Glucose (UA) 1+ (NEGATIVE) Urine Ketones Negative (NEGATIVE) Urine Blood Negative (NEGATIVE) Urine Nitrite Negative (NEGATIVE) Urine Bilirubin Negative (NEGATIVE) Urine Urobilinogen 0.2 mg/dL (0.2 - 1) Urine Leukocyte Esterase Negative (NEGATIVE) Urine RBC 0-5 /HPF (0-5) Urine WBC 0-5 /HPF (0-5) Urine Epithelial Cells Few /LPF (NONE) Urine Bacteria Few /HPF (NONE) Lab results reviewed: Yes Imaging Imaging results reviewed: Yes Procedures 12 Lead ECG Interpretation ECG Interpretation : ECG: ECG 1 Plate Put In Worker: Interpreted by ED physician Date: Feb 06, 2020 Time: 14:13 Rhythm: sinus rhythm Rate: normal BPM: 93 QRS axis: normal ST segments normal: Yes T wave inversion: I, aVL Clinical Impression: non-specific ECG Assessment & Plan Medical Decision Making MDM CBC, CHEM, ECG, CARDIACS, CXR - R/O STEMI/NSTEMI, PNEUMONIA, ELECTROLYTE ABNL Reassessment Reassessment ADMIT DR TRIPLETT Assessment & Plan Final Impression: (1) Chest pain Depart Disposition: ADMITTED Last Vital Signs Date Time Temp Pulse Resp B/P (MAP) Pulse Ox O2 Delivery O2 Flow Rate FiO2 02/06/20 14:27 99.1 97 18 184/68 100 Home Meds Active Scripts Amoxicillin/Potassium Clav (AUGMENTIN 875-125 TABLET) 1 Each Tablet, 875 MG PO DAILY, #10 TAB Prov:LILIBETH MARINA DO 12/31/19 Sulfamethoxazole/Trimethoprim (BACTRIM DS TABLET) 1 Each Tablet, 1 TAB PO BID for 5 Days, #10 TAB 0 Refills Prov:YANET COATS VP PRODUCT MARKETING 07/03/18 Reported Medications Linagliptin (TRADJENTA) 5 Mg Tablet, 5 MG PO DAILY 07/03/18 Metoprolol Tartrate (METOPROLOL TARTRATE) 50 Mg Tablet, 50 MG PO DAILY, TAB 07/03/18 Eplerenone (INSPRA) 50 Mg Tablet, 50 MG PO DAILY 07/03/18 Verapamil Hcl (VERAPAMIL ER) 120 Mg Cap24h.pel, 360 MG PO DAILY 07/03/18 Cyclobenzaprine Hcl (CYCLOBENZAPRINE HCL) 10 Mg Tablet, 10 MG PO TID PRN for MUSCLE SPASMS, TAB 07/03/18 Hydrochlorothiazide (HYDROCHLOROTHIAZIDE) 25 Mg Tablet, 50 MG PO DAILY, #30 TAB 01/25/15 Insulin Aspart (NOVOLOG) 100 Units/1 Ml Inj 03/07/13 Insulin Detemir* (LEVEMIR 3ML FLEXPEN*) 100 Units/Ml Inj, 30 UNITS SQ BEDTIME 03/07/13 Medications in the ED Aspirin 81 mg PRN ONCE PO ; Start 02/06/20 at 15:00; Stop 02/06/20 at 15:01; Status DC MALOU RODRIGUEZ MD Feb 06, 2020 17:05
--- OUTSIDE RECORDS SUMMARY | 2020-02-06 17:13 | XMS REPORT | Clinical Summary ---
Author Author [facility] Address Unknown Phone Unavailable Care Team Providers Care Language Pathologist Name Role Phone Mikal Shaver PCP Allergies Comments Active Allergy Reactions Severity Noted Date hallucinations Zolpidem Rash High 09/10/2014 hallucinates Codeine Rash High 09/10/2014 Hydrocortisone Rash High 09/10/2014 Influenza Virus Vaccines Hives High 09/10 Iodine And Iodide Hives High 09/10/2014 Containing Products Letrozole Analogues Itching 01/31/2019 Oxycodone Rash High 09/10/2014 Oxycodone 12/28/2015 Fdx-Tzuoljtvn-Lno Ketorolac Hives High 09/10/2014 Whole arm swells [...] Phone Address Plan / Dates Group HMO/POS [facility] [id number] 15-P CARE POS [employer] CHOICE [id number] Advance Directives For more information, please contact: [phone] Date Inactivated Comments Code Status Date Activated 02/02/2019 9:30 PM Full Code 01/30/2019 4:46 PM This code status was determined by: Patient 12/29/2015 11:35 PM Full Code 12/28/2015 4:51 PM This code status was determined by: Patient 09/11/2014 1:08 AM Full Code 09/10/2014 4:13 PM This code status was determined by: Patient
--- OUTSIDE RECORDS SUMMARY | 2020-02-06 17:13 | XMS REPORT | Continuity of Care Document ---
Author Author [facility] Address Unknown Phone Unavailable Care Team Providers Care Research Epidemiologist Name Role Phone [employer] Information [facility] Unavailable Un available Problems Problem Status Onset [...] 08/28/2012 (Active) Active 08/28/2012 [facility] Pen [place] 3/16" 31G X 5 MM Miscellaneous ; [...] ADM Date DC Date Status Source AUDIT [id number] 05/08/2012 05/09/2012 [facility] AUDIT [id number] 06/06/2012 06/06/2012 [facility] EST, Provi aster: MARIFER BERNABE, Status: Pen, Time: 1:45 PM [id number] 06/28/19 13 06/06/2012 [facility] [place] Provi aster: FRANCESCA BECK, Status: Pen, Time: 2:00 PM [id number] 06/28/19 13 06/06/2012 [facility] AUDIT [id number] 08/29/2012 08/29/2012 [facility] AUDIT [id number] 09/05/2012 09/06/2012 [facility] AUDIT [id number] 09/09/2012 09/09/2012 [facility] E30, Provi aster: EDYTA CASTILLO, Status: Pen, Time: 2:15 PM [id number] 10/22/19 13 09/09/2012 [facility] Procedures No [...]
[2020-02-06] MEDS ORDERED: ONDANSETRON HCL INJ 2MG/ML 2ML 2 MG/ML VIAL IV PRN (17:15)
--- OUTSIDE RECORDS SUMMARY | 2020-02-06 17:15 | XMS REPORT | Continuity of Care Document ---
Author Author [facility] t Organization [facility] t Address [address] [place] [address] Phone Unavailable Care Team Providers Care Environmental Services Lead Name Role Phone Shay GREENWOOD PCP Dennys RODRIGUEZ Attphys Unavailable Shay Mckinley Attphys Unavailable Cesar SUE, Iraj Armstrong Attphys Yasmany MARINA Attphys Unavailable Flores SUE, El[facility] Attphys [phone] Paula SCHULTZ Attphys Unavailable Marissa SUE, Ludin Thorne Attphys [phone] TREVOR OLIVEIRA Attphys Unavailable MATT SNOW Attphys Unavailable Becky ZUNIGA Attphys Unavailable [employer] Attphys Unavailable Ankita NEWMAN Attphys Unavailable Tab Ornelas Attphys Unavailable Sampson LUNA Attphys Unavailable LALO LOPEZ Admphys Unavailable [employer] Admphys Unavailable Payers Payer Name Policy Type Policy Number Effective Date Expiration Date S [facility] [id number] 2018 00:00:00 [facility] Problems Condition Name Condition Details Condition Category Status Onset Date Resolution Date Last Treatment Date Treating Clinician Comments Source Acute angina Acute angina Disease Active 2019-01-30 00:00:00 [facility] Facial paresthesia Facial paresthesia Problem Active 2015-01-25 00:00:[address] [facility] Weakness of right side of body Right sided weakness Problem Ac tive 2015-01-25 00:00:00 [facility] Chest pain Chest pain Disease Active 2014-09-10 00:00:00 [facility] Cervical myofascial strain Problem Active [facility] Sinusitis Problem Active [facility] Hypertension Hype rtension Active 09/09/2012 [facility] Problem Active 2012-09-09 07:37:42 [facility] Asthma Asth ma Active 09/09/2012 [facility] Problem Active 2012-09-09 07:37:42 Devan Mensah Urinary Tract Infection Urin betty Tract Infection Active 09/09/2012 [facility] Problem Active 2012-09-09 07:37: 42 [facility] Type 2 Diabetes Mellitus - Uncomplicated, Uncontrolled Type 2 Diabetes Mellitus - Uncomplicated, Uncontrolled Active 09/09/2012 [facility] Problem Active 2012-09-09 07:37:42 Lis [facility] Mixed Hyperlipoproteinemia Mix ed Hyperlipoproteinemia Active 09/09/2012 [facility] Problem Active 2012-09-09 07:37: 42 [facility] Allergies, Adverse Reactions, Alerts Allergy Name Allergy Type Status Severity Reaction(s) Onset Date Inacti ve Date Treating Clinician Comments Source Codeine Allergy to substance Active 2020-01-26 00:00:00 [facility] Hydrocodone Allergy to substance Active 2020-01-26 00:00:00 [facility] Aspirin Allergy to substance Active 2020-01-26 00:00:00 [facility] Zolpidem Allergy to substance Active Moderate HALLUCINATIONS 2020-01-26 00:00:00 [facility] Letrozole Allergy to substance Active Mild 2020-01-26 00:00:00 [facility] dulaglutide Allergy to substance Active Mild 2020-01-26 00:00:00 [facility] Letrozole Analogues Drug Allergy Active Itching 2019-01-31 00:00:0 0 [facility] Iodine Allergy to substance Active 2018-07-03 00:00:00 [facility] Oxycodone Allergy to substance Active 2018-07-03 00:00:00 [facility] ADHESIVE TAPE Allergy to substance Active 2016-02-05 00:00: 00 [facility] Oxycodone Wqp-Krrrvkwxc-Hau Propensity to adverse reactions Active 2015-12-28 00:00:00 [facility] Zolpidem Drug Allergy Active Rash 2014-09-10 00:00:00 hallucinations [facility] Codeine Drug Allergy Active Rash 2014-09-10 00:00:00 hallucinates [facility] Hydrocortisone Drug Allergy Active Rash 2014-09-10 00:00:00 [facility] Influenza Virus Vaccines Drug Allergy Active Hives 2014-09-10 00: 00:00 [facility] Iodine And Iodide Containing Products Drug Allergy Active Hives 2014-09-10 00:00:00 [facility] Oxycodone Drug Allergy Active Rash 2014-09-10 00:00:00 [facility] Ketorolac Drug Allergy Active Hives 2014-09-10 00:00:00 [facility] Tuberculin Ppd Drug Allergy Active Severe 2014-09-10 00:00:00 Whole arm swells up [facility] Cetirizine Drug Allergy Active Rash 2014-09-10 00:00:00 [facility] Codeine Derivatives Codeine Derivatives Active [facility] Hydrocodone-Acetaminophen TABS Hydrocodone-Acetaminophen TABS Active [facility] Ambien TABS Ambien TABS Active [facility] Iodine SOLN Iodine SOLN Active [facility] Percodan TABS Percodan TABS Active [facility] Lortab TABS Lortab TABS Active [facility] Fluzone INJ Fluzone INJ Active [facility] Family History Family Member Diagnosis Comments Start Date Stop Date Source Unknown Family Member Family History 2012-08-29 07:36:24 2 07:36:24 [facility] Social History Social Habit Start Date Stop Date Quantity Comments Source Sex Assigned At [facility] Tobacco use and exposure 2019-02-02 00:00:00 2019-02-02 00:00:00 Betina foster used [facility] Alcohol intake 2019-02-02 00:00:00 2019-02-02 00:00:00 Current non-drinker of alcohol (finding) [facility] Shabbir foster Social History 2012-09-09 07:37:42 2012-09-09 07:37:42 [facility] Smoking Status Start Date Stop Date Source Never smoker [facility] Medications Ordered Medication Name Filled Medication Name Start Date Stop Da te Current Medication? Ordering Clinician Indication Dosage Frequency Signature (SIG) Comments Components Source Amoxicillin/Potassium Clav (Augmentin 875-125 Tablet) 1 Each TABLET Amoxicillin/Potassium Clav (Augmentin 875-125 Tablet) 1 Each TABLET 2019-12-31 13:34:[address] [facility] aspirin 81 MG EC tablet 2019-02-03 00:00:00 2019-03-05 23:59:00 No 81mg QD Take 1 tablet (81 mg total) by mouth daily for 30 days. [facility] amLODIPine (NORVASC) 10 MG tablet 2019-02-03 00:00:00 2018 23:59:00 No 10mg QD Take 1 tablet (10 mg total) by mouth thais ly for 30 days. [facility] FOLIC ACID/MULTIVITS-MIN/LUT (CENTRUM SILVER ORAL) 2019-01 19:30:38 Yes 1{tbl} QD Take 1 tablet by mouth daily. [facility] cholecalciferol, vitamin D3, 1,000 unit capsule 2019-02-02 19:30 :38 Yes 1000U QD Take 1,000 Units by mouth daily. [facility] letrozole (FEMARA) 2.5 mg tablet 2019-02-02 19:30:38 Yes 2.5mg QD Take 2.5 mg by mouth daily. [facility] diphenhydrAMINE (BENADRYL) 25 mg capsule 2019-02-02 19:30:38 Yes 25mg Take 25 mg by mouth every night as needed for Itching (also for itching as well as sleeep aid). [facility] linagliptin 5 mg Tab 2019-02-02 19:30:38 Yes 5mg QD Take 5 mg by mouth nightly . [facility] insulin aspart (NOVOLOG) 100 unit/mL In 2019-02-02 19:30:38 Yes 15U Inject 15 Units subcutaneously 3 (three) times daily with meals. [facility] insulin detemir (LEVEMIR) 100 unit/mL injection 2019-02-02 19:30 :38 Yes 45U QD Inject 45 Units subcutaneously daily. [facility] DULoxetine (CYMBALTA) 30 MG capsule 2019-02-02 19:30:38 Yes diabetic peripheral neuropathy 30mg QD Take 30 mg by mouth nightly. [facility] melatonin 3 mg Tab tablet 2019-02-02 19:30:38 Yes Take by mouth. [facility] insulin degludec (TRESIBA FLEXTOUCH U-200) 200 unit/mL (3 mL ) [facility] 2019-02-02 19:30:38 Yes Inject subcutaneously. [facility] ranolazine (RANEXA) 1,000 mg SR tablet 2019-02-02 00:00:00 Yes 1000mg Q.5D Take 1 tablet (1,000 mg total) by mouth 2 (two) times daily. [facility] gabapentin (NEURONTIN) 600 MG tablet 2019-02-02 00:00:00 Ye s 600mg QD Take 1 tablet (600 mg total) by mouth nightly. [facility] metoprolol (TOPROL-XL) 50 MG 24 hr tablet 2019-02-02 00:00:00 Yes 50mg QD Take 1 tablet (50 mg total) by mouth daily. [facility] hydroCHLOROthiazide (HYDRODIURIL) 50 MG tablet 2019-02-02 00:00: 00 Yes 50mg QD Take 1 tablet (50 mg total) by mouth daily. [facility] Sulfamethoxazole/Trimethoprim (Bactrim Ds Tablet) 1 Ea ch TABLET Sulfamethoxazole/Trimethoprim (Bactrim Ds Tablet) 1 Each TABLET 2018-07-03 14:44:00 Yes [address] [facility] Aspirin (Aspirin Ec) 81 Mg TABLET. Aspirin (Aspirin Ec) 81 Mg TABLET. 2015-01-27 10:39:00 2018-07-03 00:00:[address] [facility] Cefuroxime Axetil (Cefuroxime) 250 Mg TABLET Cefuroxim e Axetil (Cefuroxime) 250 Mg TABLET 2015-01-27 10:37:00 2018-07-03 00:00:00 [address] [facility] Mometasone Furoate (Nasonex) 17 Gm SPRAY Mometasone Fu roate (Nasonex) 17 Gm SPRAY 2015-01-27 10:37:00 2018-07-03 00:00:[address] [facility] Marco 5-20 MG Oral Tablet 2012-09-09 07:37:42 Yes (Active) [facility] Pen Needle Mini U/F 31G X 5 MM Miscellaneous 2012-08-28 05:00 :00 Yes ; Start Date: 08/28/2012 (Active) [facility] Pen [place] 3/16" 31G X 5 MM Miscellaneous 2012-08-09 [...] A Day as needed for Muscle Spasms [facility] Eplerenone (Inspra) 50 Mg TABLET Eplerenone (Inspra) 50 Mg TABLET Yes [address] [facility] Hydrochlorothiazide Hydrochlorothiazide Yes [address] [facility] Insulin Aspart (Novolog) 100 Units/1 Ml INJ Insulin As part (Novolog) 100 Units/[address] [facility] Insulin Detemir (Levemir 3ML Flexpen*) 100 Units/Ml IN J Insulin Detemir (Levemir 3ML Flexpen*) 100 Units/Ml INJ Yes [address] [facility] Linagliptin (Tradjenta) 5 Mg TABLET Linagliptin (Tradjenta) 5 Mg TABL ET Yes 5 Daily [facility] Metoprolol Tartrate Metoprolol Tartrate Yes [address] [facility] Verapamil Hcl (Verapamil Er) 120 Mg CAP24H.PEL Verapam il Hcl (Verapamil Er) 120 Mg CAP24H.PEL Yes 360 Daily [facility] Acetaminophen/Chlorpheniramine (Coricidin Hbp Tablet) 1 Each TABLET Acetaminophen/Chlorpheniramine (Coricidin Hbp Tablet) 1 Each TABLET 2018-07-03 00:00:00 No [address] [facility] Albuterol Sulfate (Proventil Hfa) 6.7 Gm HFA.AER.AD Al buterol Sulfate (Proventil Hfa) 6.7 Gm HFA.AER.AD 2018-07-03 00:00:[address] [facility] Gabapentin Gabapentin 2018-07-03 00:00:00 No 600 Thr ee Times A Day [facility] Isosorbide Mononitrate (Isosorbide Mononitrate Er) 30 Mg TAB.ER.24H Isosorbide Mononitrate (Isosorbide Mononitrate Er) 30 Mg TAB.ER.24H 201 12-23-13 00:00:[address] No [address] [facility] Letrozole Letrozole 2018-07-03 00:00:[address] [facility] Linagliptin (Tradjenta) 5 Mg TABLET Linagliptin (Tradjenta) 5 Mg TABLET 2018-07-03 00:00:[address] [facility] Losartan Potassium Losartan Potassium 2018-07-03 00:00:00 No 100 Daily [facility] Verapamil Hcl (Verapamil Er) 120 Mg CAP24H.PEL Verapam il Hcl (Verapamil Er) 120 Mg CAP24H.PEL 2018-07-03 00:00:[address] [facility] Amlodipine Bes/Olmesartan Med (Marco 5-40 Mg Tablet) 1 Each TABLET Amlodipine Bes/Olmesartan Med (Marco 5-40 Mg Tablet) 1 Each TABLET 00:00:00 No 1 Daily [facility] Citalopram Hydrobromide (Celexa) 20 Mg TABLET Citalopr am Hydrobromide (Celexa) 20 Mg TABLET 2015-01-25 00:00:[address] [facility] Eszopiclone (Lunesta) 3 Mg TABLET Eszopiclone (Lunesta) 3 Mg TAB LET 2015-01-25 00:00:[address] [facility] Ibuprofen (Motrin) 800 Mg TAB Ibuprofen (Motrin) 800 Mg TAB 2015-01-25 00:00:00 No [address] [facility] Vital Signs Vital Name Observation Time Observation Value Comments Source Weight 2020-01-26 07:14:00 204 [lb_av] [facility] BMI (Body Mass Index) 2020-01-26 07:14:00 35.0 kg/m2 [facility] Weight 2019-12-31 09:45:00 204 [lb_av] [facility] BMI (Body Mass Index) 2019-12-31 09:45:00 35.0 kg/m2 [facility] Body Temperature 2019-09-26 00:29:00 98.3 [degF] [facility] Weight 2019-09-25 22:08:00 207 [lb_av] [facility] BMI (Body Mass Index) 2019-09-25 22:08:00 35.5 kg/m2 [facility] Procedures Procedure Date / Time Performed Performing Clinician [facility] e Computed tomography of brain without radiopaque contrast 2020-01 00:00:00 [facility] Computed tomography of maxillofacial area with contrast 00:00:00 [facility] Computed tomography of chest with contrast 2019-12-31 00:00:00 [facility] Computed tomography of brain without radiopaque contrast 2019-09 00:00:00 [facility] Computed tomography of cervical spine without contrast 5 00:00:00 [facility] Computed tomography of brain without radiopaque contrast 202 -11 00:00:[address] [facility] X-ray of chest, two views 2019-05-06 00:00:00 COLLEEN ANGUIANO [facility] RHYTHM STRIP - SCAN 2019-02-09 10:24:29 ProviderNayan [facility] Plan of Care Planned Activity Planned Date Details Comments Source Future Scheduled Test 2012-09-06 04:19:02 Plan of Care [code = 1877 6-5] [facility] Encounters Start Date/Time End Date/Time Encounter Type Admission Type Attendi [facility] Care Department Encounter ID Source 2020-01-26 07:36:00 2020-01-26 09:12:00 Departed Emergency Room 1 Yvon Mckinley [facility] [id number] [facility] 2020-01-21 09:44:30 2020-01-21 10:14:30 Office Visit Francisco Pearl [facility] [id number] 2019-12-31 10:04:00 2019-12-31 14:07:00 Departed Emergency Room 1 ANGELA MARINAGEETA [facility] [id number] [facility] 2019-11-02 10:04:24 2019-11-02 10:24:24 [facility] [id number] 2019-09-25 22:03:00 2019-09-26 00:30:00 Departed Emergency Room 1 MELIA SCHULTZ [facility] [id number] [facility] 2019-07-01 17:54:00 2019-07-02 01:46:00 Departed Emergency Room 1 MALOU RODRIGUEZ [facility] [id number] [facility] 2019-06-03 15:46:01 2019-06-03 15:56:01 Office Visit Mati colon [facility] [id number] 2019-05-06 16:48:00 2019-05-06 19:10:00 Departed Emergency Room 1 TREVOR OLIVEIRA [facility] [id number] [facility] 2019-02-17 15:25:39 2019-02-17 16:44:34 Office Visit Francisco Pearl [facility] [id number] 2018-12-31 11:54:25 2018-12-31 12:48:48 Office Visit Francisco Pearl [facility] [id number] 2018-12-08 14:19:48 2018-12-08 15:04:06 Office Visit Francisco Pearl [facility] [id number] 2018-11-26 15:55:07 2018-11-26 16:05:07 Office Visit Mati colon [facility] [id number] 2018-07-03 10:13:00 2018-07-03 15:31:00 Departed Emergency Room 1 ATUL ZUNIGA [facility] [id number] [facility] 2017-06-25 12:19:00 2017-06-25 16:19:00 Departed Emergency Room ER BRAD NEWMAN [facility] [id number] [facility] 2017-01-29 09:14:00 2017-01-29 09:14:00 Outpatient Ornelas, D lillie PEREIRA SWMARVIN [id number] [facility] OBGYN 2017-01-22 18:46:00 2017-01-22 23:01:00 Departed Emergency Room ER FIONA LUNA [facility] [id number] [facility] 2016-10-30 15:23:00 2016-10-30 15:23:00 Registered Emergency Room [facility] [id number] [facility]Nohemi [facility] 2012-09-09 02:38:02 2012-09-09 02:37:42 Outpatient [facility]IE [facility] [id number] 2012-09-05 23:19:21 2012-09-05 23:19:02 Outpatient MHIE [facility]IE [id number] 2012-08-29 02:36:42 2012-08-29 02:36:24 Outpatient [facility]IE [facility] [id number] 2012-06-06 13:47:26 2012-06-06 13:47:25 Outpatient MHIE MHIE [id number] 2012-05-08 18:41:15 2012-05-08 18:40:59 Outpatient MHIE MHIE [id number] Results Test Description Test Time Test Comments Results Result Comments Source CHEST SINGLE (PORTABLE) 2020-02-06 16:33:00 [facility] : 1950 Sex: F [place] [address] Patient Name: GHANSHYAM SCHROEDER MR #: [id number] : 1950 Age/Sex: 69/F Req #: [id number] Adm Physician: Ordered by: MALOU RODRIGUEZ MD Report #: [id number] Location: ER Room/Bed: Procedure: [id number] DX/CHEST SINGLE (PORTABLE) Exam Date: 02/06/20 Exam Time: 1555 REPORT STATUS: Signed EXAMINATION: CHEST SINGLE (PORTABLE) INDICATION: chest pain COMPARISON: Chest radiograph 05-06-2019. FINDINGS: TUBES and LINES: None. LUNGS: Lungs are well inflated. There is no evidence of pneumonia or pulmonary edema. PLEURA: No pleural effusion or pneumothorax. HEART AND MEDIASTINUM: The cardiomediastinal silhouette is unremarkable. BONES AND SOFT TISSUES: No acute osseous lesion. Soft tissues are unremarkable. UPPER ABDOMEN: No free air under the diaphragm. IMPRESSION: No acute thoracic abnormality. Signed by: Dr. Keyona Montoya MD on 02/06/2020 4:35 PM Dictated By: KEYONA MONTOYA MD 34 Transcribed By: BRYANT on 02/06/20 1635 COPY TO: MALOU RODRIGUEZ MD CT BRAIN WO 2020-01-26 08:32:00 [place] [address] Patient Name: GHANSHYAM SCHROEDER MR #: [id number] : 1950 Age/Sex: 69/F Req #: [id number] Adm Physician: Ordered by: Yvon Mckinley MD Report #: [id number] Location: ER Room/Bed: Procedure: [id number] CT/CT BRAIN WO Exam Date: 01/26/20 Exam Time: 0800 REPORT STATUS: Signed Examination: CT BRAIN WO History: N Dizziness [id number] Comparison studies:Head CT performed September 25, 2019 [...] Count (test code = 6690-2) 6.42 4.8-10.8 [facility] count (number/volume)2020-01-26 07:20:00* Test Item Value Reference Range Interpretation Comments Red Blood Count (test code = 789-8) 5.10 3.6-5.1 [facility] measurement (moles/volume)2020-01-26 07:20:00* Test Item Value Reference Range Interpretation Comments Hemoglobin (test code = 96514-9) 12.5 12.0-16.0 [facility] hematocrit (volume fraction)2020-01-26 07:20:00* Test Item Value Reference Range Interpretation Comments Hematocrit (test code = 4544-3) 40.6 34.2-44.1 [facility] erythrocyte mean corpuscular [id number] 07:20:00* Test Item Value Reference Range Interpretation Comments Mean Corpuscular Volume (test code = 787-2) 79.6 81-99 [facility] mean corpuscular hemoglobin (mass per erythrocyte)2020-01-26 07:20:00* Test Item Value Reference Range Interpretation Comments Mean Corpuscular Hemoglobin (test code = 785-6) 24.5 28-32 [facility] eryth[facility] mean corpuscular hemoglobin concentration measurement (mass/volume)2020-01-26 07:20:00* Test Item Value Reference Range Interpretation Comments Mean Corpuscular Hemoglobin Concent (test code = 786-4) 30.8 31-35 [facility] CenterRDW CnzNm-[id number] 07:20:00* Test Item Value Reference Range Interpretation Comments Red Cell Distribution Width (test code = 27273-0) 14.9 11.7 -14.4 [facility] platelet count (count/volume)2020-01-26 07:20:00* Test Item Value Reference Range Interpretation Comments Platelet Count (test code = 777-3) 246 140-360 [facility] neutrophil count as percentage of total lbvctxdvzm9875-31-46 07:20:00* Test Item Value Reference Range Interpretation Comments Neutrophils (%) (Auto) (test code = 65893-4) 55.6 38.7-80.0 [facility] lymphocyte count as percentage ot total mbsilnditp4174-98-51 07:20:00* Test Item Value Reference Range Interpretation Comments Lymphocytes (%) (Auto) (test code = 736-9) 29.1 18.0-39.1 [facility] monocyte count as percentage of total peuluhwwek1257-08-61 07:20:00* Test Item Value Reference Range Interpretation Comments Monocytes (%) (Auto) (test code = 5905-5) 9.5 4.4-11.3 [facility] eosinophil count as percentage of total [id number] 07:20:00* Test Item Value Reference Range Interpretation Comments Eosinophils (%) (Auto) (test code = 713-8) 4.8 0.0-6.0 [facility] basophil count as percentage of total tcmxgsgupj5105-83-13 07:20:00* Test Item Value Reference Range Interpretation Comments Basophils (%) (Auto) (test code = 706-2) 0.5 0.0-1.0 [facility] CenterFluoroscopic procedure less than one hour [id number] 07:20:00* Test Item Value Reference Range Interpretation Comments IM GRANULOCYTES % (test code = IM GRANULOCYTES %) 0.5 0.0- 1.0 [facility] neutrophil count 2020-01-26 07:20:00* Test Item Value Reference Range Interpretation Comments Neutrophils # (Auto) (test code = 751-8) 3.6 2.1-6.9 [facility] lymphocytes count (number/volume) 2020-01-26 07:20:00* Test Item Value Reference Range Interpretation Comments Lymphocytes # (Auto) (test code = 55112-1) 1.9 1.0-3.2 [facility] monocytes automated count (number/volume)2020-01-26 07:20:00* Test Item Value Reference Range Interpretation Comments Monocytes # (Auto) (test code = 742-7) 0.6 0.2-0.8 [facility] Center[facility] eosinophil count 2020-01-26 07:20:00* Test Item Value Reference Range Interpretation Comments Eosinophils # (Auto) (test code = 711-2) 0.3 0.0-0.4 [facility] blood basophil count (count/volume)2020-01-26 07:20:00* Test Item Value Reference Range Interpretation Comments Basophils # (Auto) (test code = 704-7) 0.0 0.0-0.1 [facility] CenterFluoroscopic procedure less than one hour [id number] 07:20:00* Test Item Value Reference Range Interpretation Comments Absolute Immature Granulocyte (auto (corey t code = Absolute Immature Granulocyte (auto) 0.03 0-0.1 [facility] CenterProthrombin time (PT) in platelet poor plasma by coagulation [id number] 07:20:00* Test Item Value Reference Range Interpretation Comments Prothrombin Time (test code = 5902-2) 12.9 11.9-14.5 [facility] CenterINR in Platelet poor plasma by Coagulation [id number] 07:20:00* Test Item Value Reference Range Interpretation Comments Prothromb Time International Ratio (test code = 6301-6) 0.93 Oral Anticoagulant Therapy INR Values:1. Low Intensity Therapy 1.5 - 2.02 . Moderate Intensity Therapy 2.0 - 3.03. High Intensity Therapy(1) 2.5 - 3. 54. High Intensity Therapy(2) 3.0 - 4.05. Panic Value INR > 5.0 [facility] or plasma sodium measurement (moles/volume)2020-01-26 07:20:00* Test Item Value Reference Range Interpretation Comments Sodium Level (test code = 2951-2) 140 136-145 [facility]er[facility] or plasma potassium measurement (moles/volume)2020-01-26 07:20:00* Test Item Value Reference Range Interpretation Comments Potassium Level (test code = 2823-3) 4.0 3.5-5.1 [facility]er[facility] or plasma chloride measurement (moles/volume)2020-01-26 07:20:00* Test Item Value Reference Range Interpretation Comments Chloride Level (test code = 2075-0) 104 98-107 [facility]erum or plasma carbon dioxide, total measurement (moles/volume)2020-01-26 07:20:00* Test Item Value Reference Range Interpretation Comments Carbon Dioxide Level (test code = 2028-9) 29 22-29 [facility] Hospitalerum or plasma anion qpx6754-18-02 07:20:00* Test Item Value Reference Range Interpretation Comments Anion Gap (test code = 82870-0) 11.0 8-16 [facility]er[facility] or plasma urea nitrogen measurement (mass/volume)2020-01-26 07:20:00* Test Item Value Reference Range Interpretation Comments Blood Urea Nitrogen (test code = 3094-0) 17 7-26 [facility]er[facility] or plasma creatinine measurement (mass/volume)2020-01-26 07:20:00* Test Item Value Reference Range Interpretation Comments Creatinine (test code = 2160-0) 1.26 0.57-1.11 [facility] Hospitalerum or plasma urea nitrogen/creatinine mass ppnyy4404-64-34 07:20:00* Test Item Value Reference Range Interpretation Comments BUN/Creatinine Ratio (test code = 3097-3) 13 6-25 [facility] CenterEstimated glomerular filtration rate (GFR) tjsorgwzrreza2385-54-65 07:20:00* Test Item Value Reference Range Interpretation Comments Estimat Glomerular Filtration Rate (test code = 246189521) 51 >60 Ranges were taken from the National Kidney Disease Education Program and the [facility] Kidney Foundation literature.Reference ranges:60 or greater: Itwtnk70-29 ( for 3 consecutive months): Chronic kidney disease 15 or less: Kidney failureSt. [facility] CenterGlucose omydbxgloyq2751-25-84 07:20:00* Test Item Value Reference Range Interpretation Comments Glucose Level (test code = FWY1204) 133 74-118 [facility] calcium measurement (mass/volume)2020-01-26 07:20:00* Test Item Value Reference Range Interpretation Comments Calcium Level (test code = 18620-2) 9.0 8.4-10.2 [facility] Hospitalerum or plasma total bilirubin measurement (mass/volume)2020-01-26 07:20:00* Test Item Value Reference Range Interpretation Comments Total Bilirubin (test code = 1975-2) 0.5 0.2-1.2 [facility] CenterFluoroscopic procedure less than one hour asjixfin5615-74-69 07:20:00* Test Item Value Reference Range Interpretation Comments Aspartate Amino Transf (AST/SGOT) (test code = Aspartate Amino Transf (AST/SGOT)) 14 5-34 [facility] Hospitalerum or plasma alanine aminotransferase measurement (enzymatic activity/volume)2020-01-26 07:20:00* Test Item Value Reference Range Interpretation Comments Alanine Aminotransferase (ALT/SGPT) (test code = 1742-6) 10 0-55 [facility] Hospitaler[facility] or plasma protein measurement (mass/volume)2020-01-26 07:20:00* Test Item Value Reference Range Interpretation Comments Total Protein (test code = 2885-2) 6.9 6.5-8.1 [facility] Hospitalerum or plasma albumin measurement (mass/volume)2020-01-26 07:20:00* Test Item Value Reference Range Interpretation Comments Albumin (test code = 1751-7) 3.5 3.5-5.0 [facility] CenterPlasma globulin measurement (mass/volume) 2020-01-26 07:20:00* Test Item Value Reference Range Interpretation Comments Globulin (test code = 54011-9) 3.4 2.3-3.5 [facility] Hospitalerum or plasma albumin/globulin mass pcbyv0569-99-58 07:20:00* Test Item Value Reference Range Interpretation Comments Albumin/Globulin Ratio (test code = 1759-0) 1.0 0.8-2.0 [facility] Hospitalerum or plasma alkaline phosphatase measurement (enzymatic activity/volume)2020-01-26 07:20:00* Test Item Value Reference Range Interpretation Comments Alkaline Phosphatase (test code = 6768-6) 77 40-150 [facility] CenterTroponin I measurement by highly sensitive enzyme taugwuuxlzk2492-72-57 07:20:00* Test Item Value Reference Range Interpretation Comments Troponin I (test code = 24606-6) < 0.001 0-0.[address] [facility] CenterCT MAX FAC/PARANASAL [id number] 13:11:00 [facility] [address] [address] Patient Name: GHANSHYAM SCHROEDER MR #: [id number] : 1950 Age/Sex: 69/F Req #: [id number] Adm Physician: Ordered by: LILIBETH MARINA DO Report #: [id number] Location: ER Room/Bed: Procedure: [id number] CT/CT MA X FAC/PARANASAL W Exam Date: 12/31/19 Exam Time: 124 5 REPORT STATUS: Signed EXAMINAT ION: CT of the face HISTORY: 69-year-old female with sinusitis, cough, sin us pressure, shortness of breath COMPARISON: Head CT 09/25/2019 [facility]NI[facility] images were acquired through the [...] COPY TO: ANGELA MARINA DO CT CHEST [id number] 13:01:[address] [address] Patient Name: GHANSHYAM SCHROEDER MR #: [id number] : 1950 Age/Sex: 69/F Req #: [id number] Adm Physician: Ordered by: LILIBETH MARINA DO Report #: [id number] Location: ER Room/Bed: Procedure: [id number] CT/CT CH EST W Exam Date: 12/31/19 [...] Count (test code = 6690-2) 8.67 4.8-10.8 [facility] CenterBlood erythrocytes automated count (number/volume)2019-12-31 11:00:00* Test Item Value Reference Range Interpretation Comments Red Blood Count (test code = 789-8) 5.56 3.6-5.1 [facility] CenterBlood hemoglobin measurement (moles/volume)2019-12-31 11:00:00* Test Item Value Reference Range Interpretation Comments Hemoglobin (test code = 62493-4) 13.3 12.0-16.0 [facility] CenterAutomated blood hematocrit (volume fraction)2019-12-31 11:00:00* Test Item Value Reference Range Interpretation Comments Hematocrit (test code = 4544-3) 43.9 34.2-44.1 [facility] CenterAutomated erythrocyte mean corpuscular ywrojo1288-42-08 11:00:00* Test Item Value Reference Range Interpretation Comments Mean Corpuscular Volume (test code = 787-2) 79.0 81-99 [facility] CenterAutomated erythrocyte mean corpuscular hemoglobin (mass per erythrocyte)2019-12-31 11:00:00* Test Item Value Reference Range Interpretation Comments Mean Corpuscular Hemoglobin (test code = 785-6) 23.9 28-32 [facility] CenterAutomated erythrocyte mean corpuscular hemoglobin concentration measurement (mass/volume)2019-12-31 11:00:00* Test Item Value Reference Range Interpretation Comments Mean Corpuscular Hemoglobin Concent (test code = 786-4) 30.3 31-35 [facility] CenterRDW MviEh-Igb5056-75-10 11:00:00* Test Item Value Reference Range Interpretation Comments Red Cell Distribution Width (test code = 31874-6) 15.7 11.7 -14.4 [facility] CenterAutatrium health clevelanded blood platelet count (count/volume)2019-12-31 11:00:00* Test Item Value Reference Range Interpretation Comments Platelet Count (test code = 777-3) 241 140-360 [facility] CenterAutomated blood segmented neutrophil count as percentage of total xmvberyfdk4254-58-73 11:00:00* Test Item Value Reference Range Interpretation Comments Neutrophils (%) (Auto) (test code = 65139-2) 62.7 38.7-80.0 [facility] CenterAutomated blood lymphocyte count as percentage ot total eotuydgapu9835-81-93 11:00:00* Test Item Value Reference Range Interpretation Comments Lymphocytes (%) (Auto) (test code = 736-9) 24.9 18.0-39.1 [facility] CenterAutomated blood monocyte count as percentage of total xbeiyfatcy7535-45-39 11:00:00* Test Item Value Reference Range Interpretation Comments Monocytes (%) (Auto) (test code = 5905-5) 7.6 4.4-11.3 [facility] CenterAutomated blood eosinophil count as percentage of total umgacpnino6930-87-30 11:00:00* Test Item Value Reference Range Interpretation Comments Eosinophils (%) (Auto) (test code = 713-8) 4.0 0.0-6.0 [facility] CenterAutomated blood basophil count as percentage of total cqupkboqhs6879-46-77 11:00:00* Test Item Value Reference Range Interpretation Comments Basophils (%) (Auto) (test code = 706-2) 0.3 0.0-1.0 [facility] CenterFluoroscopic procedure less than one hour jkensvrb8961-60-00 11:00:00* Test Item Value Reference Range Interpretation Comments IM GRANULOCYTES % (test code = IM GRANULOCYTES %) 0.5 0.0- 1.0 [facility] CenterAutomated blood neutrophil count 2019-12-31 11:00:00* Test Item Value Reference Range Interpretation Comments Neutrophils # (Auto) (test code = 751-8) 5.4 2.1-6.9 [facility] CenterBlood lymphocytes count (number/volume) 2019-12-31 11:00:00* Test Item Value Reference Range Interpretation Comments Lymphocytes # (Auto) (test code = 05441-2) 2.2 1.0-3.2 [facility] CenterBlood monocytes automated count (number/volume)2019-12-31 11:00:00* Test Item Value Reference Range Interpretation Comments Monocytes # (Auto) (test code = 742-7) 0.7 0.2-0.8 [facility] CenterAutomated blood eosinophil count 2019-12-31 11:00:00* Test Item Value Reference Range Interpretation Comments Eosinophils # (Auto) (test code = 711-2) 0.4 0.0-0.4 [facility] CenterAutomated blood basophil count (count/volume)2019-12-31 11:00:00* Test Item Value Reference Range Interpretation Comments Basophils # (Auto) (test code = 704-7) 0.0 0.0-0.1 [facility] CenterFluoroscopic procedure less than one hour rlgtxdtu0942-21-48 11:00:00* Test Item Value Reference Range Interpretation Comments Absolute Immature Granulocyte (auto (corey t code = Absolute Immature Granulocyte (auto) 0.04 0-0.1 [facility] CenterProthrombin time (PT) in platelet poor plasma by coagulation wlwsz4583-49-45 11:00:00* Test Item Value Reference Range Interpretation Comments Prothrombin Time (test code = 5902-2) 11.7 11.9-14.5 [facility] CenterINR in Platelet poor plasma by Coagulation wthew9829-51-02 11:00:00* Test Item Value Reference Range Interpretation Comments Prothromb Time International Ratio (test code = 6301-6) 0.82 Oral Anticoagulant Therapy INR Values:1. Low Intensity Therapy 1.5 - 2.02 . Moderate Intensity Therapy 2.0 - 3.03. High Intensity Therapy(1) 2.5 - 3. 54. High Intensity Therapy(2) 3.0 - 4.05. Panic Value INR > 5.0 [facility] Hospitaler[facility] or plasma sodium measurement (moles/volume)2019-12-31 11:00:00* Test Item Value Reference Range Interpretation Comments Sodium Level (test code = 2951-2) 143 136-145 [facility] Hospitalerum or plasma potassium measurement (moles/volume)2019-12-31 11:00:00* Test Item Value Reference Range Interpretation Comments Potassium Level (test code = 2823-3) 4.1 3.5-5.1 [facility] Hospitalerum or plasma chloride measurement (moles/volume)2019-12-31 11:00:00* Test Item Value Reference Range Interpretation Comments Chloride Level (test code = 2075-0) 108 98-107 [facility] Hospitalerum or plasma carbon dioxide, total measurement (moles/volume)2019-12-31 11:00:00* Test Item Value Reference Range Interpretation Comments Carbon Dioxide Level (test code = 2028-9) 20 22-29 [facility] Hospitalerum or plasma anion vjf6011-38-77 11:00:00* Test Item Value Reference Range Interpretation Comments Anion Gap (test code = 05268-7) 19.1 8-16 [facility] Hospitalerum or plasma urea nitrogen measurement (mass/volume)2019-12-31 11:00:00* Test Item Value Reference Range Interpretation Comments Blood Urea Nitrogen (test code = 3094-0) 17 7-26 [facility] Hospitalerum or plasma creatinine measurement (mass/volume)2019-12-31 11:00:00* Test Item Value Reference Range Interpretation Comments Creatinine (test code = 2160-0) 1.04 0.57-1.11 [facility] Hospitalerum or plasma urea nitrogen/creatinine mass irgqi0748-21-80 11:00:00* Test Item Value Reference Range Interpretation Comments BUN/Creatinine Ratio (test code = 3097-3) 16 6-25 [facility] CenterEstimated glomerular filtration rate (GFR) jxijlsuyqcfez7345-98-36 11:00:00* Test Item Value Reference Range Interpretation Comments Estimat Glomerular Filtration Rate (test code = 696118406) > 60 >60 Ranges were taken from the National Kidney Disease Education Program and the [facility] Kidney Foundation literature.Reference ranges:60 or greater: Xfdqcz08-86 ( for 3 consecutive months): Chronic kidney disease 15 or less: Kidney failureSt. David's South [facility] Medical CenterGlucose kwohkpredzy5726-78-82 11:00:00* Test Item Value Reference Range Interpretation Comments Glucose Level (test code = WZR3044) 135 74-118 [facility] Hospitalerum or plasma calcium measurement (mass/volume)2019-12-31 11:00:00* Test Item Value Reference Range Interpretation Comments Calcium Level (test code = 70233-2) 9.1 8.4-10.2 [facility] Hospitalerum or plasma total bilirubin measurement (mass/volume)2019-12-31 11:00:00* Test Item Value Reference Range Interpretation Comments Total Bilirubin (test code = 1975-2) 0.3 0.2-1.2 [facility] CenterFluoroscopic procedure less than one hour fisimhbw6590-96-10 11:00:00* Test Item Value Reference Range Interpretation Comments Aspartate Amino Transf (AST/SGOT) (test code = Aspartate Amino Transf (AST/SGOT)) 15 5-34 [facility] Hospitalerum or plasma alanine aminotransferase measurement (enzymatic activity/volume)2019-12-31 11:00:00* Test Item Value Reference Range Interpretation Comments Alanine Aminotransferase (ALT/SGPT) (test code = 1742-6) 15 0-55 [facility] Hospitalerum or plasma protein measurement (mass/volume)2019-12-31 11:00:00* Test Item Value Reference Range Interpretation Comments Total Protein (test code = 2885-2) 7.7 6.5-8.1 [facility] Hospitalerum or plasma albumin measurement (mass/volume)2019-12-31 11:00:00* Test Item Value Reference Range Interpretation Comments Albumin (test code = 1751-7) 4.4 3.5-5.0 [facility] CenterPlasma globulin measurement (mass/volume) 2019-12-31 11:00:00* Test Item Value Reference Range Interpretation Comments Globulin (test code = 03449-9) 3.3 2.3-3.5 [facility] Hospitalerum or plasma albumin/globulin mass cwusw4025-31-61 11:00:00* Test Item Value Reference Range Interpretation Comments Albumin/Globulin Ratio (test code = 1759-0) 1.3 0.8-2.0 [facility] Hospitalerum or plasma alkaline phosphatase measurement (enzymatic activity/volume)2019-12-31 11:00:00* Test Item Value Reference Range Interpretation Comments Alkaline Phosphatase (test code = 6768-6) 88 40-150 [facility] CenterCT CERVICAL SPINE HD0810-65-41 23:07:00 [facility] [address] [place] [address] Patient Name: GHANSHYAM SCHROEDER MR #: [id number] : 1950 Age/Sex: 69/F Req #: [id number] Adm Physician: Ordered by: MELIA SCHULTZ MD Report #: [id number] Location: ER Room/Bed: Procedure: 2496-2009 CT/C T CERVICAL SPINE WO Exam Date: [...] COPY TO: MELIA SCHULTZ MD CT BRAIN [id number] 23:01:[address] [address] Patient Name: GHANSHYAM SCHROEDER MR #: [id number] : 1950 Age/Sex: 69/F Req #: [id number] Adm Physician: Ordered by: MELIA SCHULTZ MD Report #: [id number] Location: ER Room/Bed: Procedure: CT/C T BRAIN WO Exam [...] TO: MELIA SCHULTZ MD ANKLE 3+ VIEWS [id number] 01:43:00 [address] [address] Patient Name: GHANSHYAM SCHROEDER MR #: [id number] : 1950 Age/Sex: 68/F Req #: [id number] Adm Physician: Ordered by: LILIBETH MARINA DO Report #: [id number] Location: ER Room/Bed: Procedure: [id number] D X/ANKLE 3+ VIEWS LEFT Exam Date: 07/02/19 Exam Time: 103 REPORT STATUS: Signed Exam: Left ankle radiographs-3 [...] KEYONA MONTOYA MD on 07/02/19144 Transcribed By: BRYNAT on 07/02/19144 COPY TO: LILIBETH MARINA DO HIP LEFT 2-3 VW (+/- PELVIS) 2019-07-01 23:44:[address] [address] Patient Name: GHANSHYAM SCHROEDER MR #: [id number] : 1950 Age/Sex: 68/F Req #: [id number] Adm Physician: Ordered by: LILIBETH MARINA DO Report #: [id number] Location: ER Room/Bed: Procedure: 9950-1716 D X/HIP LEFT 2-3 VW (+/- PELVIS) [...] COPY TO: LILIBETH MARINA DO FOOT LEFT HOQCFRIQ5796-15-81 23:44:[address] [address] Patient Name: GHANSHYAM SCHROEDER MR #: [id number] : 1950 Age/Sex: 68/F Req #: [id number] Adm Physician: Ordered by: LILIBETH MARINA DO Report #: [id number] Location: ER Room/Bed: Procedure: [id number] D X/FOOT LEFT COMPLETE Exam Date: 07/01/19 [...] O: LILIBETH MARINA DO KNEE LEFT THREE ZFIWZ3379-47-70 23:44:[address] [address] Patient Name: GHANSHYAM SCHROEDER MR #: [id number] : 1950 Age/Sex: 68/F Req #: [id number] Adm Physician: Ordered by: LILIBETH MARINA DO Report #: [id number] Location: ER Room/Bed: Procedure: [id number] D X/KNEE LEFT THREE VIEWS Exam Date: 07/01/19 Exam Gage e: 2302 REPORT STATUS: Signed Ex am: AP radiograph [...] MD 52 Transcribed By: BRYANT on 07/01/192352 PHARMACY OPERATIONS COORDINATOR Y TO: LILIBETH MARINA DO CT BRAIN IL2158-30-65 19:35:[address] [address] Patient Name: GHANSHYAM SCHROEDER MR #: [id number] : 1950 Age/Sex: 68/F Req #: [id number] Adm Physician: Ordered by: MALOU RODRIGUEZ MD Report #: [id number] Location: ER Room/Bed: Procedure: [id number] CT/C T BRAIN WO Exam Date: 07/01/19 [...] 07/01/191937 COPY TO: MALOU RODRIGUEZ MD Sodium Qtidq0919-86-70 20:03:00* Test Item Value Reference Range Interpretation Comments Sodium Level (test code = 2951-2) 144 136-145 [facility] CenterPotassium Hoaqw1816-71-40 20:03:00* Test Item Value Reference Range Interpretation Comments Potassium Level (test code = 2823-3) 3.5 3.5-5.1 [facility] CenterChloride Vhwcu4353-74-79 20:03:00* Test Item Value Reference Range Interpretation Comments Chloride Level (test code = 2075-0) 104 98-107 [facility] CenterCarbon Dioxide Ailvk4398-39-60 20:03:00* Test Item Value Reference Range Interpretation Comments Carbon Dioxide Level (test code = 2028-9) 29 22-29 [facility] CenterAnion Vet4207-10-38 20:03:00* Test Item Value Reference Range Interpretation Comments Anion Gap (test code = 71740-0) 14.5 8-16 [facility] CenterBlood Urea Pyrdnuwm9935-90-18 20:03:00* Test Item Value Reference Range Interpretation Comments Blood Urea Nitrogen (test code = 3094-0) 11 7-26 [facility] CenterCreatinine2020-01-15 20:03:00* Test Item Value Reference Range Interpretation Comments Creatinine (test code = 2160-0) 0.98 0.57-1.11 [facility] CenterBUN/Creatinine Bnxfh6504-61-46 20:03:00* Test Item Value Reference Range Interpretation Comments BUN/Creatinine Ratio (test code = 3097-3) 11 6-25 [facility] CenterEstimat Glomerular Filtration Rate 2019-05-06 20:03:00* Test Item Value Reference Range Interpretation Comments Estimat Glomerular Filtration Rate (test code = 973801585) > 60 >60 Ranges were taken from the National Kidney Disease Education Program and the [facility] [place] Kidney Foundation literature.Reference ranges:60 or greater: Uuqanz00-00 ( for 3 consecutive months): Chronic kidney disease 15 or less: Kidney failureSt. [facility]'s [facility] Medical CenterGlucose Urrkg7782-93-13 20:03:00* Test Item Value Reference Range Interpretation Comments Glucose Level (test code = RON2387) 183 74-[address] [facility] CenterCalcium Lodjz1771-12-39 20:03:00* Test Item Value Reference Range Interpretation Comments Calcium Level (test code = 86368-7) 9.2 8.4-10.2 [facility] CenterTotal Lbvptjddj5760-42-26 20:03:00* Test Item Value Reference Range Interpretation Comments Total Bilirubin (test code = 1975-2) 0.3 0.2-1.2 [facility] CenterAspartate Amino Transf (AST/SGOT) 2019-05-06 20:03:00* Test Item Value Reference Range Interpretation Comments Aspartate Amino Transf (AST/SGOT) (test code = Aspartate Amino Transf (AST/SGOT)) 28 5-34 [facility] CenterAlanine Aminotransferase (ALT/SGPT) 2019-05-06 20:03:00* Test Item Value Reference Range Interpretation Comments Alanine Aminotransferase (ALT/SGPT) (test code = 1742-6) 33 0-55 [facility] CenterTotal Zwrpzce7421-09-20 20:03:00* Test Item Value Reference Range Interpretation Comments Total Protein (test code = 2885-2) 7.3 6.5-8.1 [facility] CenterAlbumin2020-01-15 20:03:00* Test Item Value Reference Range Interpretation Comments Albumin (test code = 1751-7) 3.6 3.5-5.0 [facility] CenterGlobulin2020-01-15 20:03:00* Test Item Value Reference Range Interpretation Comments Globulin (test code = 73758-2) 3.7 2.3-3.[address] [facility] CenterAlbumin/Globulin Sfxac9620-54-60 20:03:00 * Test Item Value Reference Range Interpretation Comments Albumin/Globulin Ratio (test code = 1759-0) 1.0 0.8-2.0 [facility] CenterAlkaline Kuscijhrfrv4429-23-46 20:03:00* Test Item Value Reference Range Interpretation Comments Alkaline Phosphatase (test code = 6768-6) 69 40-150 [facility] CenterB-Type Natriuretic Ccrfmer5957-45-10 20:03:00* Test Item Value Reference Range Interpretation Comments B-Type Natriuretic Peptide (test code = 98538-0) 16.9 0-100 [facility] CenterCreatine Owivkr6889-95-06 20:03:00* Test Item Value Reference Range Interpretation Comments Creatine Kinase (test code = 2157-6) 187 29-[address] [facility] CenterCreatine Kinase CL4848-51-33 20:03:00* Test Item Value Reference Range Interpretation Comments Creatine Kinase MB (test code = 38275-3) 2.60 0-5.0 [facility] CenterTroponin P2452-02-80 20:03:00* Test Item Value Reference Range Interpretation Comments Troponin I (test code = TQG8471) < 0.001 0-0.300 [facility] Hospitalodium Zqoas9384-77-35 20:03:00* Test Item Value Reference Range Interpretation Comments Sodium Level (test code = 2951-2) 144 136-145 [facility] CenterPotassium Hxbok1682-44-62 20:03:00* Test Item Value Reference Range Interpretation Comments Potassium Level (test code = 2823-3) 3.5 3.5-5.1 [facility] CenterChloride Hwyml6961-05-59 20:03:00* Test Item Value Reference Range Interpretation Comments Chloride Level (test code = 2075-0) 104 98-107 [facility] CenterCarbon Dioxide Ieqjl1070-58-66 20:03:00* Test Item Value Reference Range Interpretation Comments Carbon Dioxide Level (test code = 2028-9) 29 22-29 [facility] CenterAnion Nnq6715-92-90 20:03:00* Test Item Value Reference Range Interpretation Comments Anion Gap (test code = 72681-4) 14.5 8-16 [facility] CenterBlood Urea Qyuqfjcq6402-56-51 20:03:00* Test Item Value Reference Range Interpretation Comments Blood Urea Nitrogen (test code = 3094-0) 11 7-26 [facility] CenterCreatinine2020-01-15 20:03:00* Test Item Value Reference Range Interpretation Comments Creatinine (test code = 2160-0) 0.98 0.57-1.11 [facility] CenterBUN/Creatinine Zesvy9661-80-76 20:03:00* Test Item Value Reference Range Interpretation Comments BUN/Creatinine Ratio (test code = 3097-3) 11 6-25 [facility] CenterEstimat Glomerular Filtration Rate 2019-05-06 20:03:00* Test Item Value Reference Range Interpretation Comments Estimat Glomerular Filtration Rate (test code = 734039382) > 60 >60 Ranges were taken from the National Kidney Disease Education Program and the [facility] Kidney Foundation literature.Reference ranges:60 or greater: Okzhbm27-51 ( for 3 consecutive months): Chronic kidney disease 15 or less: Kidney failureSt. [facility]'s [facility] CenterGlucose Bxdot2394-92-91 20:03:00* Test Item Value Reference Range Interpretation Comments Glucose Level (test code = WYB1777) 183 74-[address] [facility] CenterCalcium Tpkja0567-09-27 20:03:00* Test Item Value Reference Range Interpretation Comments Calcium Level (test code = 74288-2) 9.2 8.4-10.2 [facility] CenterTotal Popjwrtfd6244-47-81 20:03:00* Test Item Value Reference Range Interpretation Comments Total Bilirubin (test code = 1975-2) 0.3 0.2-1.2 [facility] CenterAspartate Amino Transf (AST/SGOT) 2019-05-06 20:03:00* Test Item Value Reference Range Interpretation Comments Aspartate Amino Transf (AST/SGOT) (test code = Aspartate Amino Transf (AST/SGOT)) 28 5-34 [facility] CenterAlanine Aminotransferase (ALT/SGPT) 2019-05-06 20:03:00* Test Item Value Reference Range Interpretation Comments Alanine Aminotransferase (ALT/SGPT) (test code = 1742-6) 33 0-55 [facility] CenterTotal Uriptzf5949-62-63 20:03:00* Test Item Value Reference Range Interpretation Comments Total Protein (test code = 2885-2) 7.3 6.5-8.1 [facility] CenterAlbumin2020-01-15 20:03:00* Test Item Value Reference Range Interpretation Comments Albumin (test code = 1751-7) 3.6 3.5-5.0 [facility] CenterGlobulin2020-01-15 20:03:00* Test Item Value Reference Range Interpretation Comments Globulin (test code = 46710-9) 3.7 2.3-3.[address] [facility] CenterAlbumin/Globulin Bcdii9097-15-06 20:03:00 * Test Item Value Reference Range Interpretation Comments Albumin/Globulin Ratio (test code = 1759-0) 1.0 0.8-2.0 [facility] CenterAlkaline Lsowwogywax9022-38-49 20:03:00* Test Item Value Reference Range Interpretation Comments Alkaline Phosphatase (test code = 6768-6) 69 40-150 [facility] CenterB-Type Natriuretic Nwcjlis2898-52-05 20:03:00* Test Item Value Reference Range Interpretation Comments B-Type Natriuretic Peptide (test code = 79119-5) 16.9 0-100 [facility] CenterCreatine Zhgrsp3516-00-13 20:03:00* Test Item Value Reference Range Interpretation Comments Creatine Kinase (test code = 2157-6) 187 29-[address] [facility] CenterCreatine Kinase YS6839-78-11 20:03:00* Test Item Value Reference Range Interpretation Comments Creatine Kinase MB (test code = 88887-6) 2.60 0-5.0 [facility] CenterTroponin C9786-06-94 20:03:00* Test Item Value Reference Range Interpretation Comments Troponin I (test code = THM9126) < 0.001 0-0.300 [facility] CenterInfluenza Virus Types A,B Antigen 2019-05-06 19:46:00* Test Item Value Reference Range Interpretation Comments Influenza Virus Types A,B Antigen (test code = 23303-1) NEGATIVE NEGATIVE [facility] CenterInfluenza Virus Types A,B Antigen 2019-05-06 19:46:00* Test Item Value Reference Range Interpretation Comments Influenza Virus Types A,B Antigen (test code = 99671-2) NEGATIVE NEGATIVE [facility] CenterProthrombin Yjtc3673-94-58 19:34:00* Test Item Value Reference Range Interpretation Comments Prothrombin Time (test code = 5902-2) 11.8 11.9-14.[address] [facility] CenterProthromb Time International Ratio 2019-05-06 19:34:00* Test Item Value Reference Range Interpretation Comments Prothromb Time International Ratio (test code = 6301-6) 0.82 Oral Anticoagulant Therapy INR Values:1. Low Intensity Therapy 1.5 - 2.02 . Moderate Intensity Therapy 2.0 - 3.03. High Intensity Therapy(1) 2.5 - 3. 54. High Intensity Therapy(2) 3.0 - 4.05. Panic Value INR > 5.0 [facility] CenterActivated Partial Thromboplast Time 2019-05-06 19:34:00* Test Item Value Reference Range Interpretation Comments Activated Partial Thromboplast Time (test code = 58228-3) 26.3 23.8-35.5 [facility] CenterProthrombin Evob7107-81-44 19:34:00* Test Item Value Reference Range Interpretation Comments Prothrombin Time (test code = 5902-2) 11.8 11.9-14.[address] [facility] CenterProthromb Time International Ratio 2019-05-06 19:34:00* Test Item Value Reference Range Interpretation Comments Prothromb Time International Ratio (test code = 6301-6) 0.82 Oral Anticoagulant Therapy INR Values:1. Low Intensity Therapy 1.5 - 2.02 . Moderate Intensity Therapy 2.0 - 3.03. High Intensity Therapy(1) 2.5 - 3. 54. High Intensity Therapy(2) 3.0 - 4.05. Panic Value INR > 5.0 [facility] CenterActivated Partial Thromboplast Time 2019-05-06 19:34:00* Test Item Value Reference Range Interpretation Comments Activated Partial Thromboplast Time (test code = 92661-3) 26.3 23.8-35.5 [facility] CenterWhite Blood Gbvmg0050-02-95 19:27:00* Test Item Value Reference Range Interpretation Comments White Blood Count (test code = 6690-2) 6.17 4.8-10.8 [facility] CenterRed Blood Bakjc1167-02-89 19:27:00* Test Item Value Reference Range Interpretation Comments Red Blood Count (test code = 789-8) 5.34 3.6-5.[address] [facility] CenterHemoglobin2020-01-15 19:27:00* Test Item Value Reference Range Interpretation Comments Hemoglobin (test code = 19306-9) 12.9 12.0-16.0 [facility] CenterHematocrit2020-01-15 19:27:00* Test Item Value Reference Range Interpretation Comments Hematocrit (test code = 4544-3) 42.1 34.2-44.1 [facility] CenterMean Corpuscular Galkuv5546-25-90 19:27:00* Test Item Value Reference Range Interpretation Comments Mean Corpuscular Volume (test code = 787-2) 78.8 81-[address] [facility] CenterMean Corpuscular Evigzzwvjp0955-05-34 19:27:00* Test Item Value Reference Range Interpretation Comments Mean Corpuscular Hemoglobin (test code = 785-6) 24.2 28-[address] [facility] CenterMean Corpuscular Hemoglobin Concent 2019-05-06 19:27:00* Test Item Value Reference Range Interpretation Comments Mean Corpuscular Hemoglobin Concent (test code = 786-4) 30.6 31-[address] [facility] CenterRed Cell Distribution Pheid5457-06-02 19:27:00* Test Item Value Reference Range Interpretation Comments Red Cell Distribution Width (test code = 11871-7) 14.8 11.7 -14.[address] [facility] CenterPlatelet Eunta8943-05-61 19:27:00* Test Item Value Reference Range Interpretation Comments Platelet Count (test code = 777-3) 276 140-360 [facility] CenterNeutrophils (%) (Auto)2019-05-06 19:27:00 * Test Item Value Reference Range Interpretation Comments Neutrophils (%) (Auto) (test code = 12349-8) 50.5 38.7-80.0 [facility] CenterLymphocytes (%) (Auto)2019-05-06 19:27:00 * Test Item Value Reference Range Interpretation Comments Lymphocytes (%) (Auto) (test code = 736-9) 37.1 18.0-39.1 [facility] CenterMonocytes (%) (Auto)2019-05-06 19:27:00* Test Item Value Reference Range Interpretation Comments Monocytes (%) (Auto) (test code = 5905-5) 7.9 4.4-11.3 [facility] CenterEosinophils (%) (Auto)2019-05-06 19:27:00 * Test Item Value Reference Range Interpretation Comments Eosinophils (%) (Auto) (test code = 713-8) 3.7 0.0-6.0 [facility] CenterBasophils (%) (Auto)2019-05-06 19:27:00* Test Item Value Reference Range Interpretation Comments Basophils (%) (Auto) (test code = 706-2) 0.5 0.0-1.0 [facility] CenterIM GRANULOCYTES %2019-05-06 19:27:00* Test Item Value Reference Range Interpretation Comments IM GRANULOCYTES % (test code = IM GRANULOCYTES %) 0.3 0.0- 1.0 [facility] CenterNeutrophils # (Auto)2019-05-06 19:27:00* Test Item Value Reference Range Interpretation Comments Neutrophils # (Auto) (test code = 751-8) 3.1 2.1-6.9 [facility] CenterLymphocytes # (Auto)2019-05-06 19:27:00* Test Item Value Reference Range Interpretation Comments Lymphocytes # (Auto) (test code = 22953-4) 2.3 1.0-3.2 [facility] CenterMonocytes # (Auto)2019-05-06 19:27:00* Test Item Value Reference Range Interpretation Comments Monocytes # (Auto) (test code = 742-7) 0.5 0.2-0.8 [facility] CenterEosinophils # (Auto)2019-05-06 19:27:00* Test Item Value Reference Range Interpretation Comments Eosinophils # (Auto) (test code = 711-2) 0.2 0.0-0.4 [facility] CenterBasophils # (Auto)2019-05-06 19:27:00* Test Item Value Reference Range Interpretation Comments Basophils # (Auto) (test code = 704-7) 0.0 0.0-0.1 [facility] CenterAbsolute Immature Granulocyte (auto 2019-05-06 19:27:00* Test Item Value Reference Range Interpretation Comments Absolute Immature Granulocyte (auto (corey t code = Absolute Immature Granulocyte (auto) 0.02 0-0.1 [facility] CenterWhite Blood Xsenj4714-69-69 19:27:00* Test Item Value Reference Range Interpretation Comments White Blood Count (test code = 6690-2) 6.17 4.8-10.8 [facility] CenterRed Blood Atvki7169-43-29 19:27:00* Test Item Value Reference Range Interpretation Comments Red Blood Count (test code = 789-8) 5.34 3.6-5.[address] [facility] CenterHemoglobin2020-01-15 19:27:00* Test Item Value Reference Range Interpretation Comments Hemoglobin (test code = 95368-1) 12.9 12.0-16.0 [facility] CenterHematocrit2020-01-15 19:27:00* Test Item Value Reference Range Interpretation Comments Hematocrit (test code = 4544-3) 42.1 34.2-44.1 [facility] CenterMean Corpuscular Zjeheq9789-69-37 19:27:00* Test Item Value Reference Range Interpretation Comments Mean Corpuscular Volume (test code = 787-2) 78.8 81-[address] [facility] CenterMean Corpuscular Cujxbtaqoq6406-80-67 19:27:00* Test Item Value Reference Range Interpretation Comments Mean Corpuscular Hemoglobin (test code = 785-6) 24.2 28-[address] [facility] CenterMean Corpuscular Hemoglobin Concent 2019-05-06 19:27:00* Test Item Value Reference Range Interpretation Comments Mean Corpuscular Hemoglobin Concent (test code = 786-4) 30.6 31-[address] [facility] CenterRed Cell Distribution Ukfcl2551-92-19 19:27:00* Test Item Value Reference Range Interpretation Comments Red Cell Distribution Width (test code = 49180-8) 14.8 11.7 -14.[address] [facility] CenterPlatelet Bvfbv0506-06-81 19:27:00* Test Item Value Reference Range Interpretation Comments Platelet Count (test code = 777-3) 276 140-360 [facility] CenterNeutrophils (%) (Auto)2019-05-06 19:27:00 * Test Item Value Reference Range Interpretation Comments Neutrophils (%) (Auto) (test code = 30559-5) 50.5 38.7-80.0 [facility] CenterLymphocytes (%) (Auto)2019-05-06 19:27:00 * Test Item Value Reference Range Interpretation Comments Lymphocytes (%) (Auto) (test code = 736-9) 37.1 18.0-39.1 [facility] CenterMonocytes (%) (Auto)2019-05-06 19:27:00* Test Item Value Reference Range Interpretation Comments Monocytes (%) (Auto) (test code = 5905-5) 7.9 4.4-11.3 [facility] CenterEosinophils (%) (Auto)2019-05-06 19:27:00 * Test Item Value Reference Range Interpretation Comments Eosinophils (%) (Auto) (test code = 713-8) 3.7 0.0-6.0 [facility] CenterBasophils (%) (Auto)2019-05-06 19:27:00* Test Item Value Reference Range Interpretation Comments Basophils (%) (Auto) (test code = 706-2) 0.5 0.0-1.0 [facility] CenterIM GRANULOCYTES %2019-05-06 19:27:00* Test Item Value Reference Range Interpretation Comments IM GRANULOCYTES % (test code = IM GRANULOCYTES %) 0.3 0.0- 1.0 [facility] CenterNeutrophils # (Auto)2019-05-06 19:27:00* Test Item Value Reference Range Interpretation Comments Neutrophils # (Auto) (test code = 751-8) 3.1 2.1-6.9 [facility] CenterLymphocytes # (Auto)2019-05-06 19:27:00* Test Item Value Reference Range Interpretation Comments Lymphocytes # (Auto) (test code = 85858-8) 2.3 1.0-3.2 [facility] CenterMonocytes # (Auto)2019-05-06 19:27:00* Test Item Value Reference Range Interpretation Comments Monocytes # (Auto) (test code = 742-7) 0.5 0.2-0.8 [facility] CenterEosinophils # (Auto)2019-05-06 19:27:00* Test Item Value Reference Range Interpretation Comments Eosinophils # (Auto) (test code = 711-2) 0.2 0.0-0.4 [facility] CenterBasophils # (Auto)2019-05-06 19:27:00* Test Item Value Reference Range Interpretation Comments Basophils # (Auto) (test code = 704-7) 0.0 0.0-0.1 [facility] CenterAbsolute Immature Granulocyte (auto 2019-05-06 19:27:00* Test Item Value Reference Range Interpretation Comments Absolute Immature Granulocyte (auto (corey t code = Absolute Immature Granulocyte (auto) 0.02 0-0.1 [facility] CenterCHEST 2 WMJSN0039-23-34 18:54:00 [facility] [address] [address] Patient Name: GHANSHYAM SCHROEDER MR #: [id number] : 1950 Age/Sex: 68/F Req #: [id number] Adm Physician: Ordered by: [employer] Report #: [id number] Location: ER Room/Bed: Procedure: [id number] DX /CHEST 2 VIEWS Exam Date: 05/06/19 [...] BRYANT on 05/06/191854 COPY TO: [employer] Blood leukocytes automated count (number/volume)2019-05-06 18:00:00* Test Item Value Reference Range Interpretation Comments White Blood Count (test code = 6690-2) 6.17 4.8-10.8 [facility] CenterBlood erythrocytes automated count (number/volume)2019-05-06 18:00:00* Test Item Value Reference Range Interpretation Comments Red Blood Count (test code = 789-8) 5.34 3.6-5.1 [facility] CenterBlood hemoglobin measurement (moles/volume)2019-05-06 18:00:00* Test Item Value Reference Range Interpretation Comments Hemoglobin (test code = 77845-4) 12.9 12.0-16.0 [facility] CenterAutomated blood hematocrit (volume fraction)2019-05-06 18:00:00* Test Item Value Reference Range Interpretation Comments Hematocrit (test code = 4544-3) 42.1 34.2-44.1 [facility] CenterAutomated erythrocyte mean corpuscular vdmyne5359-99-83 18:00:00* Test Item Value Reference Range Interpretation Comments Mean Corpuscular Volume (test code = 787-2) 78.8 81-99 [facility] CenterAutomated erythrocyte mean corpuscular hemoglobin (mass per erythrocyte)2019-05-06 18:00:00* Test Item Value Reference Range Interpretation Comments Mean Corpuscular Hemoglobin (test code = 785-6) 24.2 28-32 [facility] CenterAutomated erythrocyte mean corpuscular hemoglobin concentration measurement (mass/volume)2019-05-06 18:00:00* Test Item Value Reference Range Interpretation Comments Mean Corpuscular Hemoglobin Concent (test code = 786-4) 30.6 31-35 [facility] CenterRDW GhlCg-Nev8107-34-15 18:00:00* Test Item Value Reference Range Interpretation Comments Red Cell Distribution Width (test code = 82638-1) 14.8 11.7 -14.4 [facility] CenterAutomated blood platelet count (count/volume)2019-05-06 18:00:00* Test Item Value Reference Range Interpretation Comments Platelet Count (test code = 777-3) 276 140-360 [facility] CenterAutomated blood segmented neutrophil count as percentage of total tolacgarbf8461-04-23 18:00:00* Test Item Value Reference Range Interpretation Comments Neutrophils (%) (Auto) (test code = 71143-9) 50.5 38.7-80.0 [facility] CenterAutatrium health clevelanded blood lymphocyte count as percentage ot total ewxpfakatd4291-64-25 18:00:00* Test Item Value Reference Range Interpretation Comments Lymphocytes (%) (Auto) (test code = 736-9) 37.1 18.0-39.1 [facility] CenterAutomated blood monocyte count as percentage of total yaopdyprzv8385-92-09 18:00:00* Test Item Value Reference Range Interpretation Comments Monocytes (%) (Auto) (test code = 5905-5) 7.9 4.4-11.3 [facility] CenterAutatrium health clevelanded blood eosinophil count as percentage of total miaikttkbz8770-13-66 18:00:00* Test Item Value Reference Range Interpretation Comments Eosinophils (%) (Auto) (test code = 713-8) 3.7 0.0-6.0 [facility] CenterAutomated blood basophil count as percentage of total pybdlmytca7981-12-45 18:00:00* Test Item Value Reference Range Interpretation Comments Basophils (%) (Auto) (test code = 706-2) 0.5 0.0-1.0 [facility] CenterFluoroscopic procedure less than one hour xgckdrmd8560-03-44 18:00:00* Test Item Value Reference Range Interpretation Comments IM GRANULOCYTES % (test code = IM GRANULOCYTES %) 0.3 0.0- 1.0 [facility] CenterAutomated blood neutrophil count 2019-05-06 18:00:00* Test Item Value Reference Range Interpretation Comments Neutrophils # (Auto) (test code = 751-8) 3.1 2.1-6.9 [facility] CenterBlood lymphocytes count (number/volume) 2019-05-06 18:00:00* Test Item Value Reference Range Interpretation Comments Lymphocytes # (Auto) (test code = 93068-6) 2.3 1.0-3.2 [facility] CenterBlood monocytes automated count (number/volume)2019-05-06 18:00:00* Test Item Value Reference Range Interpretation Comments Monocytes # (Auto) (test code = 742-7) 0.5 0.2-0.8 [facility] CenterAutomated blood eosinophil count 2019-05-06 18:00:00* Test Item Value Reference Range Interpretation Comments Eosinophils # (Auto) (test code = 711-2) 0.2 0.0-0.4 [facility] CenterAutomated blood basophil count (count/volume)2019-05-06 18:00:00* Test Item Value Reference Range Interpretation Comments Basophils # (Auto) (test code = 704-7) 0.0 0.0-0.1 [facility] CenterFluoroscopic procedure less than one hour iuwqrfus5044-18-48 18:00:00* Test Item Value Reference Range Interpretation Comments Absolute Immature Granulocyte (auto (corey t code = Absolute Immature Granulocyte (auto) 0.02 0-0.1 [facility] CenterProthrombin time (PT) in platelet poor plasma by coagulation evktk7763-37-91 18:00:00* Test Item Value Reference Range Interpretation Comments Prothrombin Time (test code = 5902-2) 11.8 11.9-14.5 [facility] CenterINR in Platelet poor plasma by Coagulation qvhfd5892-63-88 18:00:00* Test Item Value Reference Range Interpretation Comments Prothromb Time International Ratio (test code = 6301-6) 0.82 Oral Anticoagulant Therapy INR Values:1. Low Intensity Therapy 1.5 - 2.02 . Moderate Intensity Therapy 2.0 - 3.03. High Intensity Therapy(1) 2.5 - 3. 54. High Intensity Therapy(2) 3.0 - 4.05. Panic Value INR > 5.0 [facility] CenterActivated partial thromboplastin time (aPTT) in platelet poor plasma by coagulation abokx6426-00-12 18:00:00* Test Item Value Reference Range Interpretation Comments Activated Partial Thromboplast Time (test code = 66341-2) 26.3 23.8-35.5 [facility]er[facility] or plasma sodium measurement (moles/volume)2019-05-06 18:00:00* Test Item Value Reference Range Interpretation Comments Sodium Level (test code = 2951-2) 144 136-145 [facility] Hospitalerum or plasma potassium measurement (moles/volume)2019-05-06 18:00:00* Test Item Value Reference Range Interpretation Comments Potassium Level (test code = 2823-3) 3.5 3.5-5.1 [facility] Hospitalerum or plasma chloride measurement (moles/volume)2019-05-06 18:00:00* Test Item Value Reference Range Interpretation Comments Chloride Level (test code = 2075-0) 104 98-107 [facility] CenterInfluenza virus A and B antigen identification by otedpcwrorkjwoiajc0492-37-19 18:00:00* Test Item Value Reference Range Interpretation Comments Influenza Virus Types A,B Antigen (test code = 41258-4) NEGATIVE NEGATIVE [facility] Hospitalerum or plasma carbon dioxide, total measurement (moles/volume)2019-05-06 18:00:00* Test Item Value Reference Range Interpretation Comments Carbon Dioxide Level (test code = 2028-9) 29 22-29 [facility] Hospitalerum or plasma anion aed5021-76-76 18:00:00* Test Item Value Reference Range Interpretation Comments Anion Gap (test code = 32019-3) 14.5 8-16 [facility] Hospitalerum or plasma urea nitrogen measurement (mass/volume)2019-05-06 18:00:00* Test Item Value Reference Range Interpretation Comments Blood Urea Nitrogen (test code = 3094-0) 11 7-26 [facility] Hospitalerum or plasma creatinine measurement (mass/volume)2019-05-06 18:00:00* Test Item Value Reference Range Interpretation Comments Creatinine (test code = 2160-0) 0.98 0.57-1.11 [facility] Hospitalerum or plasma urea nitrogen/creatinine mass ysqkw9452-03-18 18:00:00* Test Item Value Reference Range Interpretation Comments BUN/Creatinine Ratio (test code = 3097-3) 11 6-25 [facility] CenterEstimated glomerular filtration rate (GFR) avhdnkosgodsk8542-74-02 18:00:00* Test Item Value Reference Range Interpretation Comments Estimat Glomerular Filtration Rate (test code = 473094636) > 60 >60 Ranges were taken from the National Kidney Disease Education Program and the [facility] Kidney Foundation literature.Reference ranges:60 or greater: Sunntd51-20 ( for 3 consecutive months): Chronic kidney disease 15 or less: Kidney failureSt. [facility]'s [facility] CenterGlucose uxjnbkmjnlk3535-99-24 18:00:00* Test Item Value Reference Range Interpretation Comments Glucose Level (test code = YHJ9098) 183 74-118 [facility] Hospitalerum or plasma calcium measurement (mass/volume)2019-05-06 18:00:00* Test Item Value Reference Range Interpretation Comments Calcium Level (test code = 07930-2) 9.2 8.4-10.2 [facility] Hospitalerum or plasma total bilirubin measurement (mass/volume)2019-05-06 18:00:00* Test Item Value Reference Range Interpretation Comments Total Bilirubin (test code = 1975-2) 0.3 0.2-1.2 [facility] CenterFluoroscopic procedure less than one hour tuzopcia4227-80-00 18:00:00* Test Item Value Reference Range Interpretation Comments Aspartate Amino Transf (AST/SGOT) (test code = Aspartate Amino Transf (AST/SGOT)) 28 5-34 [facility] Hospitalerum or plasma alanine aminotransferase measurement (enzymatic activity/volume)2019-05-06 18:00:00* Test Item Value Reference Range Interpretation Comments Alanine Aminotransferase (ALT/SGPT) (test code = 1742-6) 33 0-55 [facility] Hospitalerum or plasma protein measurement (mass/volume)2019-05-06 18:00:00* Test Item Value Reference Range Interpretation Comments Total Protein (test code = 2885-2) 7.3 6.5-8.1 [facility] Hospitalerum or plasma albumin measurement (mass/volume)2019-05-06 18:00:00* Test Item Value Reference Range Interpretation Comments Albumin (test code = 1751-7) 3.6 3.5-5.0 [facility] CenterPlasma globulin measurement (mass/volume) 2019-05-06 18:00:00* Test Item Value Reference Range Interpretation Comments Globulin (test code = 92266-8) 3.7 2.3-3.5 [facility] Hospitalerum or plasma albumin/globulin mass mzfgu7087-92-33 18:00:00* Test Item Value Reference Range Interpretation Comments Albumin/Globulin Ratio (test code = 1759-0) 1.0 0.8-2.0 [facility] Hospitalerum or plasma alkaline phosphatase measurement (enzymatic activity/volume)2019-05-06 18:00:00* Test Item Value Reference Range Interpretation Comments Alkaline Phosphatase (test code = 6768-6) 69 40-150 [facility] CenterBNP Jgs-lEyl0415-36-15 18:00:00* Test Item Value Reference Range Interpretation Comments B-Type Natriuretic Peptide (test code = 50929-0) 16.9 0-100 [facility] creatine kinase measurement (enzymatic activity/volume)2019-05-06 18:00:00* Test Item Value Reference Range Interpretation Comments Creatine Kinase (test code = 2157-6) 187 29-168 [facility] Hospitaler[facility] or plasma creatine kinase MB measurement (mass/volume)2019-05-06 18:00:00* Test Item Value Reference Range Interpretation Comments Creatine Kinase MB (test code = 37215-5) 2.60 0-5.0 [facility] CenterTroponin I measurement by highly sensitive enzyme gpuxqlsjxig5863-64-30 18:00:00* Test Item Value Reference Range Interpretation Comments Troponin I (test code = 98115-6) < 0.001 0-0.300 [facility] CenterActivated partial thromboplastin time (aPTT) in platelet poor plasma by coagulation maghu8045-97-76 18:00:00* Test Item Value Reference Range Interpretation Comments Activated Partial Thromboplast Time (test code = 60090-6) 26.3 23.8-35.5 [facility] CenterInfluenza virus A and B antigen identification by hcovjobuwbjgquhxrf3239-27-99 18:00:00* Test Item Value Reference Range Interpretation Comments Influenza Virus Types A,B Antigen (test code = 04522-4) NEGATIVE NEGATIVE [facility]-nWix7669-27-22 18:00:00* Test Item Value Reference Range Interpretation Comments B-Type Natriuretic Peptide (test code = 41091-7) 16.9 0-100 [facility] Hospitaler[facility] or plasma creatine kinase measurement (enzymatic activity/volume)2019-05-06 18:00:00* Test Item Value Reference Range Interpretation Comments Creatine Kinase (test code = 2157-6) 187 29-168 [facility] Hospitalerum or plasma creatine kinase MB measurement (mass/volume)2019-05-06 18:00:00* Test Item Value Reference Range Interpretation Comments Creatine Kinase MB (test code = 14133-6) 2.60 0-5.0 [facility] CenterTroponin I measurement by highly sensitive enzyme zcvlekejhmv2889-63-92 18:00:00* Test Item Value Reference Range Interpretation Comments Troponin I (test code = 68727-2) < 0.001 0-0.300 [facility] CenterActivated partial thromboplastin time (aPTT) in platelet poor plasma by coagulation qodhl3502-90-69 18:00:00* Test Item Value Reference Range Interpretation Comments Activated Partial Thromboplast Time (test code = 42092-6) 26.3 23.8-35.5 [facility] CenterInfluenza virus A and B antigen identification by bocykhddtwkclwdedi5426-63-56 18:00:00* Test Item Value Reference Range Interpretation Comments Influenza Virus Types A,B Antigen (test code = 57027-5) NEGATIVE NEGATIVE [facility]-rGpw2742-47-28 18:00:00* Test Item Value Reference Range Interpretation Comments B-Type Natriuretic Peptide (test code = 87152-0) 16.9 0-100 [facility] Hospitaler[facility] or plasma creatine kinase measurement (enzymatic activity/volume)2019-05-06 18:00:00* Test Item Value Reference Range Interpretation Comments Creatine Kinase (test code = 2157-6) 187 29-168 [facility] Hospitalerum or plasma creatine kinase MB measurement (mass/volume)2019-05-06 18:00:00* Test Item Value Reference Range Interpretation Comments Creatine Kinase MB (test code = 57660-1) 2.60 0-5.0 [facility] CenterCT, CTA CORONARY WITH CALCIUM EVAL AND FFR [id number] 10:25:00Reason for exam:->CHEST PAINAddendum BeginsREPORT STATUS:A Addendum: [facility] Reading Room - [facility] 1310.12Addendum EndsFINAL REPORT CT coronary angiography, 02 [...] performed. Coronary calcification was analyzed using the Cu[employer] system software. These are the results of [...] the result would be sent to [facility] when available. However, the data will likely [...] fin dings will be reviewed by the Camera Person Radiologist and addendum will be added as needed. Signed: Suhas Richards MDReport Verified Date/Time: 02/02/2019 14 :31:21 C METABOLIC [id number] 06:56:00* Test Item Value Reference Range Interpretation [...] IS NOT APPLICABLE FOR DIALYSIS PATIENTS. POCT-GLUCOSE [id number] 21:36:00* Test Item Value Reference Range Interpretation Comments POC-GLUCOSE METER (BEAKER) (test code = 1538) 96 mg/dL 70-110 TESTED AT [facility] [address] [facility] [address] POCT-GLUCOSE [id number] 17:23:00* Test Item Value Reference Range Interpretation Comments POC-GLUCOSE METER (BEAKER) (test code = 1538) 135 mg/dL 70-110 H TESTED AT [address] [address] POCT-GLUCOSE [id number] 11:40:00* Test Item Value Reference Range Interpretation Comments POC-GLUCOSE METER (BEAKER) (test code = 1538) 142 mg/dL 70-110 H TESTED AT [address] [address] POCT-GLUCOSE [id number] 08:02:00* Test Item Value Reference Range Interpretation Comments POC-GLUCOSE METER (BEAKER) (test code = 1538) 126 mg/dL 70-110 H TESTED AT [address] [address] BASIC METABOLIC [id number] 06:07:00* Test Item Value Reference Range Interpretation [...] IS NOT APPLICABLE FOR DIALYSIS PATIENTS. POCT-GLUCOSE [id number] 21:23:00* Test Item Value Reference Range Interpretation Comments POC-GLUCOSE METER (BEAKER) (test code = 1538) 141 mg/dL 70-110 H TESTED AT [address] [address] POCT-GLUCOSE [id number] 17:54:00* Test Item Value Reference Range Interpretation Comments POC-GLUCOSE METER (BEAKER) (test code = 1538) 83 mg/dL 70-110 TESTED AT [facility] [address] [facility] [address] POCT-GLUCOSE [id number] 12:44:00* Test Item Value Reference Range Interpretation Comments POC-GLUCOSE METER (BEAKER) (test code = 1538) 145 mg/dL 70-110 H TESTED AT [place] [id number] [facility] [address] POCT-GLUCOSE [id number] 08:35:00* Test Item Value Reference Range Interpretation Comments POC-GLUCOSE METER (BEAKER) (test code = 1538) 133 mg/dL 70-110 H TESTED AT [place] [id number] [facility] [address] HEMOGLOBIN [id number] 07:17:00* Test Item Value Reference Range Interpretation Comments HEMOGLOBIN A1C (BEAKER) (test code = 368) 9.4 % 4.3-6.1 H LIPID [id number] 06:27:00* Test Item Value Reference Range Interpretation [...] High 160-189 Very High >=190 BASIC METABOLIC [id number] 06:27:00* Test Item Value Reference Range Interpretation [...] APPLICABLE FOR DIALYSIS PATIENTS. TSH/FREE T4 IF [id number] 05:53:00* Test Item Value Reference Range Interpretation Comments THYROID STIMULATING HORMONE (BEAKER) (test code = 772) 0.84 uIU/mL 0.35-4.94 CBC W/PLT COUNT & AUTO UYWLKOEQQIKZ2101-08-18 05:13:00* Test Item Value Reference Range Interpretation [...] code = 2801) 0 % 0-1 POCT-GLUCOSE [id number] 21:36:00* Test Item Value Reference Range Interpretation Comments POC-GLUCOSE METER (BEAKER) (test code = 1538) 114 mg/dL 70-110 H TESTED AT [address] [address] TROPONIN [id number] 21:25:00* Test Item Value Reference Range Interpretation [...] acute neurological disease, and per sistent tachyarrhythmia.POCT-GLUCOSE [id number] 18:42:00* Test Item Value Reference Range Interpretation Comments POC-GLUCOSE METER (BEAKER) (test code = 1538) 92 mg/dL 70-110 TESTED AT [address] [address] TROPONIN [id number] 17:00:00* Test Item Value Reference Range Interpretation [...] acute neurological disease, and per sistent tachyarrhythmia.POCT-GLUCOSE [id number] 14:34:00* Test Item Value Reference Range Interpretation Comments POC-GLUCOSE METER (BEAKER) (test code = 1538) 116 mg/dL 70-110 H TESTED AT [facility] [address] [facility] [address] B-TYPE NATRIURETIC FACTOR (BNP)2019-01-30 11:42:00* Test Item Value Reference Range Interpretation Comments B-TYPE NATRIURETIC PEPTIDE (BEAKER) (test code = 700) < pg/mL 0-100 TROPONIN [id number] 11:04:00* Test Item Value Reference Range Interpretation [...] acidosis, acute neurological disease, and per sistent tachyarrhythmia.[id number] 10:56:00* Test Item Value Reference Range Interpretation Comments MAGNESIUM (BEAKER) (test code = 627) 1.7 mg/dL 1.6-2.6 BASIC METABOLIC [id number] 10:56:00* Test Item Value Reference Range Interpretation [...] GFR IS NOT APPLICABLE FOR DIALYSIS PATIENTS. PT/[id number] 10:48:00* Test Item Value Reference Range Interpretation [...] mechanical heart valves.CBC W/PLT COUNT & AUTO [id number] 10:39:00* Test Item Value Reference Range Interpretation [...] 2801) 0 % 0-1 RAD, CHEST, 2 [id number] 10:08:00Reason for exam:->CHEST PAINFINAL REPORT INDICATION: CHEST PAIN COMPARISON: December 28, 2015 TECHNIQUE: Frontal and lateral views of the chest. FINDINGS: Lungs and pleura: Clear lungs. No effusion.Heart and mediastinum: Normal heart size. Unremarkable mediastinal contours.Osseous structures: No acute abnormality.Additional findings: None. IMPRESSION: No acute intrathoracic abnormality. Signed: Narinder tuttle JR, Robert MDReport Verified Date/Time: 01/30/2019 10:08:24 Reading Loc ation: [facility] Reading Room ABDOMEN/PELVIS [id number] 13:34:00 [place] [address] Patient Name: GHANSHYAM SCHROEDER MR #: [id number] : 1950 Age/Sex: 67/F Req #: [id number] Adm Physician: Ordered by: YANET COATS AVIATION ORDNANCE OFFICER Report #: [id number] Location: ER Room/Bed: Procedure: [id number] C T/CT ABDOMEN/PELVIS WO Exam Date: 07/03/18 [...] COPY TO: YANET COATS NP B-Type Natriuretic [id number] 12:07:00* Test Item Value Reference Range Interpretation Comments B-Type Natriuretic Peptide (test code = 04303-2) < 10.0 0-[address] [facility] CenterProthrombin [id number] 11:49:00* Test Item Value Reference Range Interpretation Comments Prothrombin Time (test code = 5902-2) 12.3 11.9-14.5 [facility] CenterProthromb Time International Ratio 2018-07-03 11:49:00* Test Item Value Reference Range Interpretation Comments Prothromb Time International Ratio (test code = 6301-6) 0.87 Oral Anticoagulant Therapy INR Values:1. Low Intensity Therapy 1.5 - 2.02 . Moderate Intensity Therapy 2.0 - 3.03. High Intensity Therapy(1) 2.5 - 3. 54. High Intensity Therapy(2) 3.0 - 4.05. Panic Value INR > 5.0 [facility] CenterActivated Partial Thromboplast Time 2018-07-03 11:49:00* Test Item Value Reference Range Interpretation Comments Activated Partial Thromboplast Time (test code = 50722-4) 30.1 23.8-35.5 [facility] CenterUrine [id number] 11:46:00* Test Item Value Reference Range Interpretation Comments Urine Blood (test code = 37034-3) NEGATIVE NEGATIVE [facility] CenterUrine [id number] 11:46:00* Test Item Value Reference Range Interpretation Comments Urine WBC (test code = 5821-4) 6-10 0-[address] [facility] CenterUrine [id number] 11:46:00* Test Item Value Reference Range Interpretation Comments Urine RBC (test code = 45289-2) NONE 0-5 [facility] CenterUrine Umfkynrm8233-86-56 11:46:00* Test Item Value Reference Range Interpretation Comments Urine Bacteria (test code = 76158-1) MANY NONE H [facility] CenterUrine Epithelial [id number] 11:46:00 * Test Item Value Reference Range Interpretation Comments Urine Epithelial Cells (test code = 13861-0) MANY NONE [facility] CenterCreatine Kinase [id number] 11:45:00* Test Item Value Reference Range Interpretation Comments Creatine Kinase MB (test code = 33437-9) 1.70 0-5.0 [facility] CenterTroponin [id number] 11:45:00* Test Item Value Reference Range Interpretation Comments Troponin I (test code = PRH3691) 0.003 0-0.[address] [facility] CenterCHEST 2 [id number] 11:42:00 [facility] [address] [place] [address] Patient Name: GHANSHYAM SCHROEDER MR #: [id number] : 1950 Age/Sex: 67/F Req #: [id number] Adm Physician: Ordered by: YANET COATS NP Report #: [id number] Location: ER Room/Bed: Procedure: [id number] D X/CHEST 2 VIEWS Exam Date: 07/03/18 [...] 11:44 AM Dictated By: KEYONA MONTOYA MD 1145 Transcribed By: BRYANT on 07/03/18 1144 COPY TO: YANET COATS NP Sodium [id number] 11:38:00* Test Item Value Reference Range Interpretation Comments Sodium Level (test code = 2951-2) 137 136-145 [facility] CenterPotassium Ldspv9146-20-71 11:38:00* Test Item Value Reference Range Interpretation Comments Potassium Level (test code = 2823-3) 3.5 3.5-5.1 [facility] CenterChloride Gbgdr7055-15-02 11:38:00* Test Item Value Reference Range Interpretation Comments Chloride Level (test code = 2075-0) 99 98-107 [facility] CenterCarbon Dioxide Yyjtb3000-13-82 11:38:00* Test Item Value Reference Range Interpretation Comments Carbon Dioxide Level (test code = 2028-9) 26 22-29 [facility] CenterAnion [id number] 11:38:00* Test Item Value Reference Range Interpretation Comments Anion Gap (test code = 63290-7) 15.5 8-16 [facility] CenterBlood Urea Axvlhgrj9893-81-79 11:38:00* Test Item Value Reference Range Interpretation Comments Blood Urea Nitrogen (test code = 3094-0) 19 7-26 [facility] CenterCreatinine2019-03-14 11:38:00* Test Item Value Reference Range Interpretation Comments Creatinine (test code = 2160-0) 1.19 0.57-1.[address] [facility] CenterBUN/Creatinine Piinc5139-56-11 11:38:00* Test Item Value Reference Range Interpretation Comments BUN/Creatinine Ratio (test code = 3097-3) 16 6-25 [facility] CenterEstimat Glomerular Filtration Rate 2018-07-03 11:38:00* Test Item Value Reference Range Interpretation Comments Estimat Glomerular Filtration Rate (test code = 977316929) 55 >60 L Ranges were taken from the National Kidney Disease Education Program and the [facility] hospitalal Kidney Foundation literature.Reference ranges:60 or greater: Bjwidk44-93 ( for 3 consecutive months): Chronic kidney disease 15 or less: Kidney failureSt. David's [facility] Medical CenterGlucose Ceyts3493-56-85 11:38:00* Test Item Value Reference Range Interpretation Comments Glucose Level (test code = SEN8963) 188 74-[address] [facility] CenterCalcium Mxtmy7738-55-21 11:38:00* Test Item Value Reference Range Interpretation Comments Calcium Level (test code = 66829-5) 9.1 8.4-10.2 [facility] CenterMagnesium Vbbkm3620-65-94 11:38:00* Test Item Value Reference Range Interpretation Comments Magnesium Level (test code = 84177-5) 2.4 1.3-2.[address] [facility] CenterTotal Pivfgsjbq2359-53-39 11:38:00* Test Item Value Reference Range Interpretation Comments Total Bilirubin (test code = 1975-2) 0.5 0.2-1.2 [facility] CenterAspartate Amino Transf (AST/SGOT) 2018-07-03 11:38:00* Test Item Value Reference Range Interpretation Comments Aspartate Amino Transf (AST/SGOT) (test code = Aspartate Amino Transf (AST/SGOT)) 17 5-34 [facility] CenterAlanine Aminotransferase (ALT/SGPT) 2018-07-03 11:38:00* Test Item Value Reference Range Interpretation Comments Alanine Aminotransferase (ALT/SGPT) (test code = 1742-6) 16 0-55 [facility] CenterTotal Yxgcefu7249-13-69 11:38:00* Test Item Value Reference Range Interpretation Comments Total Protein (test code = 2885-2) 7.5 6.5-8.1 [facility] CenterAlbumin2019-03-14 11:38:00* Test Item Value Reference Range Interpretation Comments Albumin (test code = 1751-7) 3.5 3.5-5.0 [facility] CenterGlobulin2019-03-14 11:38:00* Test Item Value Reference Range Interpretation Comments Globulin (test code = 64610-3) 4.0 2.3-3.[address] [facility] CenterAlbumin/Globulin Xgvem0962-23-57 11:38:00 * Test Item Value Reference Range Interpretation Comments Albumin/Globulin Ratio (test code = 1759-0) 0.9 0.8-2.0 [facility] CenterAlkaline Dgxbjjjfrbc8884-13-16 11:38:00* Test Item Value Reference Range Interpretation Comments Alkaline Phosphatase (test code = 6768-6) 95 40-150 [facility] CenterCreatine Ktwcri2113-68-99 11:38:00* Test Item Value Reference Range Interpretation Comments Creatine Kinase (test code = 2157-6) 187 29-[address] [facility] CenterAmylase Xknln8213-22-39 11:38:00* Test Item Value Reference Range Interpretation Comments Amylase Level (test code = 1798-8) 82 25-125 [facility] CenterLipase2019-03-14 11:38:00* Test Item Value Reference Range Interpretation Comments Lipase (test code = 3040-3) 38 8-78 [facility] CenterUrine Onece9053-65-16 11:34:00* Test Item Value Reference Range Interpretation Comments Urine Color (test code = 5778-6) YELLOW YELLOW [facility] CenterUrine Vcsenub3056-68-47 11:34:00* Test Item Value Reference Range Interpretation Comments Urine Clarity (test code = 08908-3) CLEAR CLEAR [facility] CenterUrine Specific Ghtcvmj6553-45-93 11:34:00 * Test Item Value Reference Range Interpretation Comments Urine Specific [place] (test code = 5811-5) 1.020 1.010-1.[address] [facility] CenterUrine [id number] 11:34:00* Test Item Value Reference Range Interpretation Comments Urine pH (test code = 42935-8) 6 5-7 [facility] CenterUrine Leukocyte Rxddaaod6233-84-46 11:34:00* Test Item Value Reference Range Interpretation Comments Urine Leukocyte Esterase (test code = 5799-2) NEGATIVE NEGATIVE [facility] CenterUrine Ujeeuaa1227-19-78 11:34:00* Test Item Value Reference Range Interpretation Comments Urine Nitrite (test code = 67649-2) NEGATIVE NEGATIVE [facility] CenterUrine Vbewuoh0377-73-63 11:34:00* Test Item Value Reference Range Interpretation Comments Urine Protein (test code = 5804-0) NEGATIVE NEGATIVE [facility] CenterUrine Glucose (UA)2018-07-03 11:34:00* Test Item Value Reference Range Interpretation Comments Urine Glucose (UA) (test code = 2349-9) NEGATIVE NEGATIVE [facility] CenterUrine Zrirhhc8841-69-20 11:34:00* Test Item Value Reference Range Interpretation Comments Urine Ketones (test code = 17629-9) NEGATIVE NEGATIVE [facility] CenterUrine Nrumyxfqiwtu5147-85-45 11:34:00* Test Item Value Reference Range Interpretation Comments Urine Urobilinogen (test code = 51975-4) 0.2 0.2-1 [facility] CenterUrine Namgmciqa8179-88-05 11:34:00* Test Item Value Reference Range Interpretation Comments Urine Bilirubin (test code = 1978-6) NEGATIVE NEGATIVE [facility] CenterWhite Blood Qlrcw8742-15-42 11:26:00* Test Item Value Reference Range Interpretation Comments White Blood Count (test code = 6690-2) 8.90 4.8-10.8 [facility] CenterRed Blood Hylzi9802-15-33 11:26:00* Test Item Value Reference Range Interpretation Comments Red Blood Count (test code = 789-8) 5.26 3.6-5.[address] [facility] CenterHemoglobin2019-03-14 11:26:00* Test Item Value Reference Range Interpretation Comments Hemoglobin (test code = 66744-8) 12.8 12.0-16.0 [facility] CenterHematocrit2019-03-14 11:26:00* Test Item Value Reference Range Interpretation Comments Hematocrit (test code = 4544-3) 40.9 34.2-44.1 [facility] CenterMean Corpuscular Hpmupk8036-90-26 11:26:00* Test Item Value Reference Range Interpretation Comments Mean Corpuscular Volume (test code = 787-2) 77.8 81-[address] [facility] CenterMean Corpuscular Yglchoanwy6698-06-09 11:26:00* Test Item Value Reference Range Interpretation Comments Mean Corpuscular Hemoglobin (test code = 785-6) 24.3 28-[address] [facility] CenterMean Corpuscular Hemoglobin Concent 2018-07-03 11:26:00* Test Item Value Reference Range Interpretation Comments Mean Corpuscular Hemoglobin Concent (test code = 786-4) 31.3 31-35 [facility] CenterRed Cell Distribution Tuhqr3242-82-46 11:26:00* Test Item Value Reference Range Interpretation Comments Red Cell Distribution Width (test code = 32568-8) 15.2 11.7 -14.[address] [facility] CenterPlatelet Ydkqu5002-55-01 11:26:00* Test Item Value Reference Range Interpretation Comments Platelet Count (test code = 777-3) 250 140-360 [facility] CenterNeutrophils (%) (Auto)2018-07-03 11:26:00 * Test Item Value Reference Range Interpretation Comments Neutrophils (%) (Auto) (test code = 50831-9) 64.3 38.7-80.0 [facility] CenterLymphocytes (%) (Auto)2018-07-03 11:26:00 * Test Item Value Reference Range Interpretation Comments Lymphocytes (%) (Auto) (test code = 736-9) 25.1 18.0-39.1 [facility] CenterMonocytes (%) (Auto)2018-07-03 11:26:00* Test Item Value Reference Range Interpretation Comments Monocytes (%) (Auto) (test code = 5905-5) 7.1 4.4-11.3 [facility] CenterEosinophils (%) (Auto)2018-07-03 11:26:00 * Test Item Value Reference Range Interpretation Comments Eosinophils (%) (Auto) (test code = 713-8) 2.8 0.0-6.0 [facility] CenterBasophils (%) (Auto)2018-07-03 11:26:00* Test Item Value Reference Range Interpretation Comments Basophils (%) (Auto) (test code = 706-2) 0.3 0.0-1.0 [facility] CenterIM GRANULOCYTES %2018-07-03 11:26:00* Test Item Value Reference Range Interpretation Comments IM GRANULOCYTES % (test code = IM GRANULOCYTES %) 0.4 0.0- 1.0 [facility] CenterNeutrophils # (Auto)2018-07-03 11:26:00* Test Item Value Reference Range Interpretation Comments Neutrophils # (Auto) (test code = 751-8) 5.7 2.1-6.9 [facility] CenterLymphocytes # (Auto)2018-07-03 11:26:00* Test Item Value Reference Range Interpretation Comments Lymphocytes # (Auto) (test code = 69819-5) 2.2 1.0-3.2 [facility] CenterMonocytes # (Auto)2018-07-03 11:26:00* Test Item Value Reference Range Interpretation Comments Monocytes # (Auto) (test code = 742-7) 0.6 0.2-0.8 [facility] CenterEosinophils # (Auto)2018-07-03 11:26:00* Test Item Value Reference Range Interpretation Comments Eosinophils # (Auto) (test code = 711-2) 0.3 0.0-0.4 [facility] CenterBasophils # (Auto)2018-07-03 11:26:00* Test Item Value Reference Range Interpretation Comments Basophils # (Auto) (test code = 704-7) 0.0 0.0-0.1 [facility] CenterAbsolute Immature Granulocyte (auto 2018-07-03 11:26:00* Test Item Value Reference Range Interpretation Comments Absolute Immature Granulocyte (auto (corey t code = Absolute Immature Granulocyte (auto) 0.04 0-0.1 [facility] CenterPOCT-GLUCOSE [id number] 11:51:00* Test Item Value Reference Range Interpretation Comments POC-GLUCOSE METER (BEAKER) (test code = 1538) 124 mg/dL 70-110 H TESTED AT [facility] [address] [facility] [address] Creatine Kinase [id number] 15:21:00* Test Item Value Reference Range Interpretation Comments Creatine Kinase MB (test code = 93586-6) 1.40 0-5.0 [facility] CenterTroponin [id number] 15:21:00* Test Item Value Reference Range Interpretation Comments Troponin I (test code = EXI6973) 0.005 0-0.300 [facility] Dmldd3539-06-49 15:18:00* Test Item Value Reference Range Interpretation Comments Sodium Level (test code = 2951-2) 141 136-145 [facility] CenterPotassium Nqdbd0058-80-34 15:18:00* Test Item Value Reference Range Interpretation Comments Potassium Level (test code = 2823-3) 4.1 3.5-5.1 [facility] CenterChloride Bcasz5777-76-97 15:18:00* Test Item Value Reference Range Interpretation Comments Chloride Level (test code = 2075-0) 102 98-107 [facility] CenterCarbon Dioxide Jfgsw6253-62-60 15:18:00* Test Item Value Reference Range Interpretation Comments Carbon Dioxide Level (test code = 2028-9) 27 22-29 [facility] CenterAnion Kkh2314-27-64 15:18:00* Test Item Value Reference Range Interpretation Comments Anion Gap (test code = 91095-3) 16.1 8-[address] [facility] CenterBlood Urea Gglorxtd2458-46-66 15:18:00* Test Item Value Reference Range Interpretation Comments Blood Urea Nitrogen (test code = 3094-0) 17 7-26 [facility] CenterCreatinine2018-03-06 15:18:00* Test Item Value Reference Range Interpretation Comments Creatinine (test code = 2160-0) 1.12 0.57-1.[address] [facility] CenterBUN/Creatinine Oierl6142-65-42 15:18:00* Test Item Value Reference Range Interpretation Comments BUN/Creatinine Ratio (test code = 3097-3) 15 6-25 [facility] CenterEstimat Glomerular Filtration Rate 2017-06-25 15:18:00* Test Item Value Reference Range Interpretation Comments Estimat Glomerular Filtration Rate (test code = 91098-7) 59 >60 L Ranges were taken from the National Kidney Disease Education Program and the [facility] Kidney Foundation literature.Reference ranges:60 or greater: Fxwohq69-12 ( for 3 consecutive months): Chronic kidney disease 15 or less: Kidney failureSt. [facility]'s [facility] CenterGlucose Frekg5930-60-77 15:18:00* Test Item Value Reference Range Interpretation Comments Glucose Level (test code = FOV1270) 100 74-118 [facility] CenterCalcium Blewv2137-13-16 15:18:00* Test Item Value Reference Range Interpretation Comments Calcium Level (test code = 26229-3) 9.2 8.4-10.2 [facility] CenterTotal Ohahvsziq2174-74-50 15:18:00* Test Item Value Reference Range Interpretation Comments Total Bilirubin (test code = 1975-2) 0.5 0.2-1.2 [facility] CenterAspartate Amino Transf (AST/SGOT) 2017-06-25 15:18:00* Test Item Value Reference Range Interpretation Comments Aspartate Amino Transf (AST/SGOT) (test code = Aspartate Amino Transf (AST/SGOT)) 23 5-34 [facility] CenterAlanine Aminotransferase (ALT/SGPT) 2017-06-25 15:18:00* Test Item Value Reference Range Interpretation Comments Alanine Aminotransferase (ALT/SGPT) (test code = 1742-6) 20 0-55 [facility] CenterTotal Hfgnzph9063-76-54 15:18:00* Test Item Value Reference Range Interpretation Comments Total Protein (test code = 2885-2) 8.1 6.5-8.1 [facility] CenterAlbumin2018-03-06 15:18:00* Test Item Value Reference Range Interpretation Comments Albumin (test code = 1751-7) 3.8 3.5-5.0 [facility] CenterGlobulin2018-03-06 15:18:00* Test Item Value Reference Range Interpretation Comments Globulin (test code = 58156-1) 4.3 2.3-3.[address] [facility] CenterAlbumin/Globulin Znvqg9545-51-90 15:18:00 * Test Item Value Reference Range Interpretation Comments Albumin/Globulin Ratio (test code = 1759-0) 0.9 0.8-2.0 [facility] CenterAlkaline Xjbmevpeflc6158-03-93 15:18:00* Test Item Value Reference Range Interpretation Comments Alkaline Phosphatase (test code = 6768-6) 85 40-150 [facility] CenterCreatine Xtdrgc7680-44-52 15:18:00* Test Item Value Reference Range Interpretation Comments Creatine Kinase (test code = 2157-6) 163 29-168 [facility] CenterProthrombin Snda1882-65-86 15:06:00* Test Item Value Reference Range Interpretation Comments Prothrombin Time (test code = 5902-2) 12.2 11.9-14.5 [facility] CenterProthromb Time International Ratio 2017-06-25 15:06:00* Test Item Value Reference Range Interpretation Comments Prothromb Time International Ratio (test code = 6301-6) 0.98 Oral Anticoagulant Therapy INR Values:1. Low Intensity Therapy 1.5 - 2.02 . Moderate Intensity Therapy 2.0 - 3.03. High Intensity Therapy(1) 2.5 - 3. 54. High Intensity Therapy(2) 3.0 - 4.05. Panic Value INR > 5.0 [facility] CenterActivated Partial Thromboplast Time 2017-06-25 15:06:00* Test Item Value Reference Range Interpretation Comments Activated Partial Thromboplast Time (test code = 70569-5) 25.5 23.8-35.5 [facility] CenterWhite Blood Ewehu7668-52-27 14:47:00* Test Item Value Reference Range Interpretation Comments White Blood Count (test code = 6690-2) 9.16 4.8-10.8 [facility] CenterRed Blood Yifko0088-39-28 14:47:00* Test Item Value Reference Range Interpretation Comments Red Blood Count (test code = 789-8) 5.23 3.6-5.[address] [facility] CenterHemoglobin2018-03-06 14:47:00* Test Item Value Reference Range Interpretation Comments Hemoglobin (test code = 39118-9) 12.9 12.0-16.0 [facility] CenterHematocrit2018-03-06 14:47:00* Test Item Value Reference Range Interpretation Comments Hematocrit (test code = 4544-3) 40.6 34.2-44.1 [facility] CenterMean Corpuscular Uupbea9980-92-68 14:47:00* Test Item Value Reference Range Interpretation Comments Mean Corpuscular Volume (test code = 787-2) 77.6 81-[address] [facility] CenterMean Corpuscular Hmckxbqtqq9440-99-53 14:47:00* Test Item Value Reference Range Interpretation Comments Mean Corpuscular Hemoglobin (test code = 785-6) 24.7 28-32 L [facility] Corpuscular Hemoglobin Concent 2017-06-25 14:47:00* Test Item Value Reference Range Interpretation Comments Mean Corpuscular Hemoglobin Concent (test code = 786-4) 31.8 31-35 [facility] CenterRed Cell Distribution Fypdw5829-83-68 14:47:00* Test Item Value Reference Range Interpretation Comments Red Cell Distribution Width (test code = 38256-8) 15.7 11.7 -14.[address] [facility] CenterPlatelet Shrni9451-28-56 14:47:00* Test Item Value Reference Range Interpretation Comments Platelet Count (test code = 777-3) 233 140-360 [facility] CenterNeutrophils (%) (Auto)2017-06-25 14:47:00 * Test Item Value Reference Range Interpretation Comments Neutrophils (%) (Auto) (test code = 13489-1) 57.4 38.7-80.0 [facility] CenterLymphocytes (%) (Auto)2017-06-25 14:47:00 * Test Item Value Reference Range Interpretation Comments Lymphocytes (%) (Auto) (test code = 736-9) 30.8 18.0-39.1 [facility] CenterMonocytes (%) (Auto)2017-06-25 14:47:00* Test Item Value Reference Range Interpretation Comments Monocytes (%) (Auto) (test code = 5905-5) 8.5 4.4-11.3 [facility] CenterEosinophils (%) (Auto)2017-06-25 14:47:00 * Test Item Value Reference Range Interpretation Comments Eosinophils (%) (Auto) (test code = 713-8) 2.7 0.0-6.0 [facility] CenterBasophils (%) (Auto)2017-06-25 14:47:00* Test Item Value Reference Range Interpretation Comments Basophils (%) (Auto) (test code = 706-2) 0.3 0.0-1.0 [facility] CenterIM GRANULOCYTES %2017-06-25 14:47:00* Test Item Value Reference Range Interpretation Comments IM GRANULOCYTES % (test code = IM GRANULOCYTES %) 0.3 0.0- 1.0 [facility] CenterNeutrophils # (Auto)2017-06-25 14:47:00* Test Item Value Reference Range Interpretation Comments Neutrophils # (Auto) (test code = 751-8) 5.3 2.1-6.9 [facility] CenterLymphocytes # (Auto)2017-06-25 14:47:00* Test Item Value Reference Range Interpretation Comments Lymphocytes # (Auto) (test code = 07876-8) 2.8 1.0-3.2 [facility] CenterMonocytes # (Auto)2017-06-25 14:47:00* Test Item Value Reference Range Interpretation Comments Monocytes # (Auto) (test code = 742-7) 0.8 0.2-0.8 [facility] CenterEosinophils # (Auto)2017-06-25 14:47:00* Test Item Value Reference Range Interpretation Comments Eosinophils # (Auto) (test code = 711-2) 0.3 0.0-0.4 [facility] CenterBasophils # (Auto)2017-06-25 14:47:00* Test Item Value Reference Range Interpretation Comments Basophils # (Auto) (test code = 704-7) 0.0 0.0-0.1 [facility] CenterAbsolute Immature Granulocyte (auto 2017-06-25 14:47:00* Test Item Value Reference Range Interpretation Comments Absolute Immature Granulocyte (auto (corey t code = Absolute Immature Granulocyte (auto) 0.03 0-0.1 [facility] CenterUrine [id number] 14:22:00* Test Item Value Reference Range Interpretation Comments Urine WBC (test code = 5821-4) NONE 0-5 [facility] CenterUrine YGR6408-53-86 14:22:00* Test Item Value Reference Range Interpretation Comments Urine RBC (test code = 05715-1) NONE 0-5 [facility] CenterUrine Rynkxlpp9818-29-49 14:22:00* Test Item Value Reference Range Interpretation Comments Urine Bacteria (test code = 13862-3) NONE NONE [facility] CenterUrine Epithelial Nnksa6038-35-89 14:22:00 * Test Item Value Reference Range Interpretation Comments Urine Epithelial Cells (test code = 96545-6) FEW NONE [facility] CenterUrine Vvsij0977-93-92 14:06:00* Test Item Value Reference Range Interpretation Comments Urine Color (test code = 5778-6) YELLOW YELLOW [facility] CenterUrine Njzywku7859-98-10 14:06:00* Test Item Value Reference Range Interpretation Comments Urine Clarity (test code = 70852-7) CLEAR CLEAR [facility] CenterUrine Specific Pastpry1543-89-06 14:06:00 * Test Item Value Reference Range Interpretation Comments Urine Specific [place] (test code = 5811-5) 1.010 1.010-1.[address] [facility] CenterUrine [id number] 14:06:00* Test Item Value Reference Range Interpretation Comments Urine pH (test code = 27868-5) 6.5 5-7 [facility] CenterUrine Leukocyte Cwdxbitn7871-61-36 14:06:00* Test Item Value Reference Range Interpretation Comments Urine Leukocyte Esterase (test code = 5799-2) NEGATIVE NEGATIVE [facility] CenterUrine Gvytqik1027-13-13 14:06:00* Test Item Value Reference Range Interpretation Comments Urine Nitrite (test code = 80078-2) NEGATIVE NEGATIVE [facility] CenterUrine Qvudits2231-88-06 14:06:00* Test Item Value Reference Range Interpretation Comments Urine Protein (test code = 5804-0) NEGATIVE NEGATIVE [facility] CenterUrine Glucose (UA)2017-06-25 14:06:00* Test Item Value Reference Range Interpretation Comments Urine Glucose (UA) (test code = 2349-9) NEGATIVE NEGATIVE [facility] CenterUrine Ompzmnz0259-32-98 14:06:00* Test Item Value Reference Range Interpretation Comments Urine Ketones (test code = 26755-3) NEGATIVE NEGATIVE [facility] CenterUrine Fdsokrhjczid7647-41-87 14:06:00* Test Item Value Reference Range Interpretation Comments Urine Urobilinogen (test code = 08217-9) 0.2 0.2-1 [facility] CenterUrine Wbhvmyxuv2098-00-38 14:06:00* Test Item Value Reference Range Interpretation Comments Urine Bilirubin (test code = 1978-6) NEGATIVE NEGATIVE [facility] CenterUrine Uzicq8371-34-58 14:06:00* Test Item Value Reference Range Interpretation Comments Urine Blood (test code = 96746-2) NEGATIVE NEGATIVE [facility] CenterUrine Lkous6764-18-39 20:15:00* Test Item Value Reference Range Interpretation Comments Urine Mucus (test code = 8247-9) FEW RARE H [facility] CenterAmylase Ukgwu1030-53-82 20:07:00* Test Item Value Reference Range Interpretation Comments Amylase Level (test code = 1798-8) 76 25-125 [facility] CenterLipase2017-10-03 20:07:00* Test Item Value Reference Range Interpretation Comments Lipase (test code = 3040-3) 21 8-78 [facility] CenterCT BRAIN [facility] [address] [address] Patient Name: GHANSHYAM SCHROEDER MR #: [id number] : 1950 Age/Sex: 66/F Req #: [id number] Adm Physician: Ordered by: YANET COATS NP Report #: [id number] Location: ER Room/Bed: Procedure: [id number] CT/CT BRAIN WO Exam Date: 0 06/25/17 [...] BRYANT on 06/25 COPY TO: YANET COATS NP CT ABDOMEN/PELVIS WO [place] [address] Patient Name: GHANSHYAM SCHROEDER MR #: [id number] : 0 1950 Age/Sex: 66/F Req #: [id number] Adm Physician: Ordered by: MELIA SCHULTZ MD Report #: [id number] Location: ER Ro om/Bed: Procedure: [id number] CT/CT ABDOMEN/PELVIS WO Exam Date: 01/22/17 Exam [...] 10:13 PM Dictated By: WILLIAM AGUILAR MD [facility] Signed By: WILLIAM AGUILAR MD on 01/22/172212 Transcribed By: BRYANT on 01/22/172212 COPY TO: MELIA SCHULTZ MD
--- NOTE | 2020-02-06 18:08 | NUR ---
received pt from ER. pt alert and oriented x 4, pt ambulated to bed, pt oriented to room and plan of care
[2020-02-06 18:23] VITALS: BP 107/82
[2020-02-06 18:29] VITALS: BP 107/82
[2020-02-06 20:08] VITALS: BP 153/64
[2020-02-06 22:00] VITALS: BP 153/64
--- NOTE | 2020-02-06 22:28 | NUR ---
SPOKE TO DR. TRIPLETT AT THIS TIME REGARDING PATIENT REQUEST OF SLEEPING MED. NEW ORDER RECEIVED FOR ATIVAN 1MG PO PRN FOR SLEEP.
[2020-02-06] MEDS: LORAZEPAM 1 MG TAB PO PRN (23:25)
[2020-02-06 23:26] LABS: CREATINE KINASE MB 2.7 ng/mL (0-5.0)
[2020-02-07] VITALS (7 sets, daily range): BP systolic 135–158; BP diastolic 59–85
[2020-02-07 06:49] LABS: BASOPHILS % 0.5 % (0.0-1.0); EOSINOPHILS # (AUTO) 0.3 (0.0-0.4); EOSINOPHILS % 4.3 % (0.0-6.0); LYMPHOCYTES # (AUTO) 2.5 (1.0-3.2); MEAN CORPUSCULAR HEMOGLOBIN 25.1 pg (28-32); MEAN CORPUSCULAR HGB CONC 31.7 g/dL (31-35); MEAN CORPUSCULAR VOLUME 79.2 fL (81-99); MONOCYTES # (AUTO) 0.8 (0.2-0.8); MONOCYTES % 10.2 % (4.4-11.3); NEUTROPHILS # (AUTO) 3.8 (2.1-6.9); NEUTROPHILS % 50.7 % (38.7-80.0); PLATELET COUNT 200 x10e3/uL (140-360); RED BLOOD COUNT 5.18 x10e6/uL (3.6-5.1); RED CELL DISTRIBUTION WIDTH 15.2 % (11.7-14.4)
--- NOTE | 2020-02-07 07:00 | NUR ---
ASSUMED CARE. AAOX3. ACYANOTIC. RESTING IN BED. NO DISTRESS NOTED. CALL LIGHT IN REACH. SIDE RAILS UP X2. BED LOW AND LOCKED.
[2020-02-07 07:05] LABS: ALANINE AMINOTRANSFERASE 16 IU/L (0-55); ALBUMIN 3.4 g/dL (3.5-5.0); ALKALINE PHOSPHATASE 75 IU/L (40-150); ANION GAP 11.9 mmol/L (8-16); BLOOD UREA NITROGEN 18 mg/dL (7-26); BUN/CREATININE RATIO 18 (6-25); CALCIUM 9.1 mg/dL (8.4-10.2); CARBON DIOXIDE 28 mmol/L (22-29); CHLORIDE 104 mmol/L (98-107); CHOL/HDL RATIO 4.5 (3.0-3.6); CHOLESTEROL 172 MD/DL (0-199); CREATININE, SERUM 0.99 mg/dL (0.57-1.11); EST GLOMERULAR FILTRATION RATE > 60 ML/MIN (60-); GLUCOSE 115 mg/dL (74-118); HDL CHOLESTEROL 38 MG/DL (40-60); LDL CHOLESTEROL 105 MG/DL (60-130); POTASSIUM 3.9 mmol/L (3.5-5.1); SODIUM 140 mmol/L (136-145); TRIGLYCERIDES 147 MG/DL (0-149)
[2020-02-07 07:28] LABS: CREATINE KINASE MB 2.3 ng/mL (0-5.0)
[2020-02-07] MEDS: NITROGLYCERIN 0.4 MG SUBL SL PRN (12:41)
[2020-02-07] MEDS ORDERED: INSULIN DETEMIR SQ SCH (14:30)
[2020-02-07] MEDS ORDERED: EPLERONONE 25 MG PO SCH (14:30)
[2020-02-07] MEDS ORDERED: BENZONATATE 100 MG CAP PO PRN (15:00)
[2020-02-07 15:21] LABS: CREATINE KINASE MB 1.6 ng/mL (0-5.0)
[2020-02-07] MEDS: METOPROLOL TARTRATE 50 MG TAB PO SCH (15:30)
[2020-02-07] MEDS: VERAPAMIL HCL 120 MG TABSR PO SCH (15:30)
[2020-02-07] MEDS: AZITHROMYCIN 250 MG TAB PO SCH (15:30)
[2020-02-07] MEDS: INSULIN LISPRO 100 UNIT/1 ML 3ML VIAL SQ SCH ×3 (16:30→21:00)
--- NOTE | 2020-02-07 16:47 | NUR ---
PATIENT INFORMED NURSE THAT SHE SELF ADMINISTERED HUMALOG 6 UNITS SUBCUTANEOUSLY FOR BLOOD SUGAR OF 202. SHE ALSO STATED THAT SHE SELF ADMINISTERED TRESIBA 48 UNITS SUBCUTANEOUSLY. PROVIDED TEACHING ON MEDCIATIONS ORDERED BY PHYSICIAN.
[2020-02-07] MEDS ORDERED: TRESIBA FL100 UNIT/1 SC (16:50)
[2020-02-07] MEDS: FAMOTIDINE 20 MG TAB PO SCH (17:07)
--- NOTE | 2020-02-07 18:55 | NUR ---
RECEIVED BEDSIDE SHIFT REPORT FROM ONCOMING NURSE. CALL LIGHT WITHIN REACH. PATIENT IN BED. PATIENT IS A&OX3 AND AMBULATES.
[2020-02-07] MEDS: INSULIN GLARGINE 100 UNITS/ML VIAL SQ SCH ×2 (20:27→21:00)
[2020-02-07] MEDS: LORAZEPAM 1 MG TAB PO PRN (21:02)
[2020-02-07] MEDS ORDERED: ESCITALOPRAM OX20 MG (23:57)
[2020-02-07] MEDS ORDERED: ZIPSOR25 MG (23:57)
[2020-02-07] MEDS ORDERED: ATIVAN0.5 MG PO (23:57)
[2020-02-07] MEDS ORDERED: RANEXA1000 MG PO (23:57)
[2020-02-07] MEDS ORDERED: ATORVASTATIN CA20 MG PO (23:57)
[2020-02-07] MEDS ORDERED: GABAPENTIN300 MG PO (23:57)
[2020-02-07] MEDS ORDERED: MECLIZINE HCL12.5 MG PO (23:57)
[2020-02-07] MEDS ORDERED: BENZONATATE100 MG PO (23:57)
[2020-02-07] MEDS ORDERED: DILT-XR240 MG (23:57)
[2020-02-07] MEDS ORDERED: ISOSORBIDE MONO30 MG PO (23:57)
[2020-02-07] MEDS ORDERED: FLUTICASONE P15.8 ML (23:57)
[2020-02-07] MEDS ORDERED: CANDESARTAN CIL32 MG (23:57)
[2020-02-08] VITALS (9 sets, daily range): BP systolic 105–146; BP diastolic 59–80
[2020-02-08] MEDS: LEVALBUTEROL HCL SOLN NEBU 1.25 MG/3 ML NEB INH SCH ×3 (01:00→13:00)
[2020-02-08 06:11] LABS: BASOPHILS % 0.4 % (0.0-1.0); EOSINOPHILS # (AUTO) 0.3 (0.0-0.4); EOSINOPHILS % 3.2 % (0.0-6.0); HEMATOCRIT 40.1 % (34.2-44.1); HEMOGLOBIN 12.4 g/dL (12.0-16.0); LYMPHOCYTES # (AUTO) 2.6 (1.0-3.2); LYMPHOCYTES % 30.4 % (18.0-39.1); MEAN CORPUSCULAR HEMOGLOBIN 24.2 pg (28-32); MEAN CORPUSCULAR HGB CONC 30.9 g/dL (31-35); MEAN CORPUSCULAR VOLUME 78.2 fL (81-99); MONOCYTES # (AUTO) 0.9 (0.2-0.8); MONOCYTES % 10.8 % (4.4-11.3); NEUTROPHILS # (AUTO) 4.7 (2.1-6.9); NEUTROPHILS % 54.8 % (38.7-80.0); PLATELET COUNT 218 x10e3/uL (140-360); RED BLOOD COUNT 5.13 x10e6/uL (3.6-5.1); RED CELL DISTRIBUTION WIDTH 14.9 % (11.7-14.4)
[2020-02-08 06:39] LABS: ANION GAP 12.9 mmol/L (8-16); BLOOD UREA NITROGEN 19 mg/dL (7-26); BUN/CREATININE RATIO 19 (6-25); CALCIUM 8.6 mg/dL (8.4-10.2); CARBON DIOXIDE 25 mmol/L (22-29); CHLORIDE 107 mmol/L (98-107); CHOL/HDL RATIO 4.3 (3.0-3.6); CHOLESTEROL 165 MD/DL (0-199); CREATININE, SERUM 0.99 mg/dL (0.57-1.11); EST GLOMERULAR FILTRATION RATE > 60 ML/MIN (60-); GLUCOSE 97 mg/dL (74-118); HDL CHOLESTEROL 38 MG/DL (40-60); LDL CHOLESTEROL 93 MG/DL (60-130); POTASSIUM 3.9 mmol/L (3.5-5.1); SODIUM 141 mmol/L (136-145); TRIGLYCERIDES 169 MG/DL (0-149)
[2020-02-08 06:59] LABS: THYROID STIMULATING HORMONE 2.178 uIU/mL (0.350-4.940)
--- NOTE | 2020-02-08 07:07 | NUR ---
GAVE BEDSIDE SHIFT REPORT TO ONCOMING NURSE. CALL LIGHT WITHIN REACH. PATIENT IN BED. HOURLY ROUNDING PERFORMED
[2020-02-08] MEDS: INSULIN LISPRO 100 UNIT/1 ML 3ML VIAL SQ SCH ×4 (07:30→21:00)
[2020-02-08] MEDS: FAMOTIDINE 20 MG TAB PO SCH ×2 (07:30→16:30)
[2020-02-08] MEDS: VERAPAMIL HCL 120 MG TABSR PO SCH (09:00)
[2020-02-08] MEDS: METOPROLOL TARTRATE 50 MG TAB PO SCH (09:00)
[2020-02-08] MEDS: [UNRECOGNIZED DRUG - OTHER] PO SCH (09:00)
[2020-02-08] MEDS: NON-FORMULARY MEDICATION (Linagliptin (Tradjenta) 5 MG) PO SCH (09:00)
[2020-02-08] MEDS: AZITHROMYCIN 250 MG TAB PO SCH (10:58)
[2020-02-08] MEDS ORDERED: REGADENOSON 0.4 MG/5 ML SYR IV ONE (11:04)
--- NOTE | 2020-02-08 12:16 | Consultation ---
DATE OF CONSULTATION: Cardiology Consultation REASON FOR CONSULTATION: Chest pain. HISTORY OF PRESENT ILLNESS: This is a 69-year-old woman with a history of hypertension, hyperlipidemia, diabetes mellitus, obesity, and coronary artery disease, who presented to the emergency department with chest pain. The patient reports over the last few days to weeks. She has been experiencing central chest discomfort, described as a pressure as if someone sitting on her chest, mild to moderate intensity, progressively worsening, occurs at rest and worsens with exertion, better with rest, associated with some shortness of breath, also associated with some palpitations. The patient was told that she had coronary artery disease in the past after cardiac catheterization, however, the vessels were too small to stent. No recent cardiac testing has been performed. REVIEW OF SYSTEMS: A 12-point review of system was conducted, is negative except as stated above in the HPI. PAST MEDICAL HISTORY: As stated above in the HPI. PAST SURGICAL HISTORY: Lumpectomy, cardiac catheterization, and tubal ligation. PAST FAMILY HISTORY: No premature coronary artery disease or sudden cardiac . SOCIAL HISTORY: No illicit drug, alcohol, or tobacco use. MEDICATIONS: See medications reconciliation form. PHYSICAL EXAMINATION: VITAL SIGNS: Temperature is 97.9, heart rate is 62, respirations 18, blood pressure is 142/59, and ox saturation 97% on room air. GENERAL: She is well appearing, well built, no apparent distress. Alert and oriented x3. HEAD: Normocephalic and atraumatic. Eyes, the extraocular muscles are intact. Conjunctivae are clear. NECK: No JVD. No bruits. CARDIOVASCULAR: Regular rate and rhythm. LUNGS: Clear to auscultation. ABDOMEN: Soft, nontender, nondistended. EXTREMITIES: No clubbing, cyanosis, or edema. VASCULAR: 2+ pulses. SKIN: Warm, dry, intact. NEUROLOGIC: No focal deficits noted. Cranial nerves grossly intact. PSYCHIATRIC: Normal mood and affect. LABORATORY DATA: Reviewed. Hemoglobin is 12.4. Creatinine 0.99. Troponin negative x4. A 12-lead electrocardiogram shows normal sinus rhythm with septal infarct, age undetermined. Echocardiogram showed preserved left ventricular systolic function. IMPRESSION: 1. Precordial pain. 2. Coronary artery disease. 3. Hypertension. 4. Hyperlipidemia. 5. Diabetes mellitus. 6. Obesity. RECOMMENDATIONS: The patient is ruled out for acute myocardial infarction. Her 12-lead electrocardiogram shows no active ischemia or infarct. Her echocardiogram showed preserved left ventricular systolic function. Continue home cardiovascular medications. Up-titrate isosorbide as tolerated. Continue Ranexa. The patient will undergo stress testing to evaluate for myocardial ischemia. Further recommendations to follow. DO MARIA Tapia/ROCKYL /[id number]
--- NOTE | 2020-02-08 19:19 | NUR ---
Received pt in bed alert and oriented, anticipating d/c home tonight awaiting md visit. No c/o at this time, bed in low and locked position. No s/sx of acute distress noted. Call espino and personal items within reach. Bedside report completed. Will cont to mon pt.
[2020-02-08] MEDS: INSULIN GLARGINE 100 UNITS/ML VIAL SQ SCH (21:00)
[2020-02-08] MEDS: NITROGLYCERIN 0.4 MG SUBL SL PRN ×2 (21:33→21:43)
--- NOTE | 2020-02-08 21:33 | Progress Note ---
DATE: CONSULTING PHYSICIAN: Dr. Arnol Jhaveri with Cardiology. SUBJECTIVE: The patient denies pain. Overall, she does have a headache which she rates 6/10 on a 0-10 pain scale. She still has some coughing. States she has wheezing. She has a history of right-sided neck pain and chest pain since the 1st of the year. She underwent stress test today. OBJECTIVE: VITAL SIGNS: Temperature 97.7, pulse 69, blood pressure 138/70, respirations 18, and oxygen saturation 100%. GENERAL: Supine, no acute distress. Alert and oriented x3. LUNGS: With diminished bilateral lower lobes, dry cough. HEENT: EOMI. Oropharynx clear. NECK: Supple. CARDIOVASCULAR: Regular rate and rhythm. No murmur. ABDOMEN: Bowel sounds positive. Soft, nontender. EXTREMITIES: No pitting edema. No clubbing, cyanosis, or signs of DVT. NEUROLOGICAL: Nonfocal. GCS 15. LABORATORY DATA: WBCs 8.5, hemoglobin 12.4, hematocrit 40.1, platelets 214, neutrophils 54.8%. Sodium 141, potassium 3.9, chloride 107, CO2 25, BUN 19, creatinine 0.99, estimated GFR greater than 60, glucose 97. Hemoglobin A1c 7.6%, calcium 8.6, triglycerides 169, cholesterol 165, LDL 93, HDL 38. Bilateral lower extremity arterial Doppler ultrasound without evidence of significant arterial stenosis per preliminary report. On 02/06 echocardiogram preliminary report showed estimated ejection fraction of 50% to 55%.. ASSESSMENT AND PLAN: 1. Atypical chest pain. Cardiac biomarkers negative x3. Awaiting final results on echocardiogram. Bilateral lower extremity arterial Doppler ultrasound and cardiac stress test. 2. Claudication/weak pulses. Awaiting final results on bilateral lower extremity arterial Doppler ultrasound. 3. Controlled hypertension with coronary artery disease 138/70. Continue home medications. 4. Coronary artery disease status post stent. Cardiology following. Awaiting final results of stress test, which was done today. 5. Controlled type 2 diabetes mellitus. Hemoglobin A1c 7.6%. Continue Tradjenta and low-dose sliding scale insulin. 6. Acute exacerbation of chronic obstructive pulmonary disease. Dry cough. No wheezing noted. Continue Zithromax and Xopenex nebs. Tessalon Perles. 7. Prophylaxis. Pepcid, SCDs, ambulatory. Observation status, billing code [id number]. Time spent 35 minutes. Dictated by Berhane W Wyatt, AWNING FINISHER MD SULMA Zhou/CHRIS /[id number]
[2020-02-08] MEDS: LORAZEPAM 1 MG TAB PO PRN (22:16)
[2020-02-08] MEDS ORDERED: DIPHENHYDRAMINE HCL 25 MG CAP PO PRN (22:45)
[2020-02-09 00:09] VITALS: BP 137/48
[2020-02-09] MEDS: LEVALBUTEROL HCL SOLN NEBU 1.25 MG/3 ML NEB INH SCH ×2 (01:00→07:00)
[2020-02-09 05:14] VITALS: BP 133/61
[2020-02-09 05:22] LABS: BASOPHILS % 0.5 % (0.0-1.0); EOSINOPHILS # (AUTO) 0.3 (0.0-0.4); EOSINOPHILS % 3.3 % (0.0-6.0); HEMATOCRIT 39.1 % (34.2-44.1); HEMOGLOBIN 12.1 g/dL (12.0-16.0); LYMPHOCYTES # (AUTO) 2.7 (1.0-3.2); LYMPHOCYTES % 32.1 % (18.0-39.1); MEAN CORPUSCULAR HEMOGLOBIN 24.3 pg (28-32); MEAN CORPUSCULAR HGB CONC 30.9 g/dL (31-35); MEAN CORPUSCULAR VOLUME 78.5 fL (81-99); MONOCYTES # (AUTO) 0.8 (0.2-0.8); NEUTROPHILS # (AUTO) 4.6 (2.1-6.9); NEUTROPHILS % 54.9 % (38.7-80.0); PLATELET COUNT 220 x10e3/uL (140-360); RED BLOOD COUNT 4.98 x10e6/uL (3.6-5.1); RED CELL DISTRIBUTION WIDTH 15.1 % (11.7-14.4)
[2020-02-09 05:46] LABS: ANION GAP 12.9 mmol/L (8-16); BLOOD UREA NITROGEN 22 mg/dL (7-26); BUN/CREATININE RATIO 21 (6-25); CALCIUM 8.9 mg/dL (8.4-10.2); CARBON DIOXIDE 25 mmol/L (22-29); CHLORIDE 109 mmol/L (98-107); CREATININE, SERUM 1.07 mg/dL (0.57-1.11); EST GLOMERULAR FILTRATION RATE > 60 ML/MIN (60-); GLUCOSE 94 mg/dL (74-118); MAGNESIUM 2.1 MG/DL (1.3-2.1); PHOSPHORUS 3.8 MG/DL (2.3-4.7); POTASSIUM 3.9 mmol/L (3.5-5.1); SODIUM 143 mmol/L (136-145)
[2020-02-09] MEDS: FAMOTIDINE 20 MG TAB PO SCH (07:30)
[2020-02-09] MEDS: INSULIN LISPRO 100 UNIT/1 ML 3ML VIAL SQ SCH ×2 (07:30→11:30)
[2020-02-09 07:38] VITALS: BP 148/73
[2020-02-09 08:00] VITALS: BP 148/73
[2020-02-09] MEDS: VERAPAMIL HCL 120 MG TABSR PO SCH (09:00)
[2020-02-09] MEDS: NON-FORMULARY MEDICATION (Linagliptin (Tradjenta) 5 MG) PO SCH (09:00)
[2020-02-09] MEDS: [UNRECOGNIZED DRUG - OTHER] PO SCH (09:00)
[2020-02-09] MEDS: METOPROLOL TARTRATE 50 MG TAB PO SCH (09:00)
[2020-02-09] MEDS: AZITHROMYCIN 250 MG TAB PO SCH (09:10)
[2020-02-09 11:33] VITALS: BP 152/47
--- NOTE | 2020-02-09 12:28 | Progress Note ---
DATE: Cardiology Progress Note SUBJECTIVE: The patient is feeling better. Denies any chest pain, shortness of breath, or palpitations. OBJECTIVE: VITAL SIGNS: Temperature is 98.3, heart rate 72, respirations 16, blood pressure is 142/87, and oxygen saturation 95% on room air. GENERAL: Well appearing, in no apparent distress. CARDIOVASCULAR: Regular rate and rhythm. LUNGS: Clear to auscultation. ABDOMEN: Soft, nontender, nondistended. EXTREMITIES: No clubbing, cyanosis, or edema. VASCULAR: 2+ pulses. CARDIOVASCULAR MEDICATIONS: Reviewed. LABORATORY DATA: Reviewed. Stress test showed normal myocardial perfusion imaging. IMPRESSION: 1. Precordial pain. 2. Coronary artery disease. 3. Hypertension. 4. Hyperlipidemia. 5. Diabetes mellitus. 6. Obesity. RECOMMENDATIONS: The patient is ruled out for acute myocardial infarction. Her echocardiogram showed preserved left ventricular systolic function. Nuclear stress test showed a homogeneous perfusion of the myocardium. No infarct or ischemia was noted. Continue current cardiovascular medications. She may be discharged from a cardiovascular standpoint with outpatient followup. DO MARIA Tapia/MODL /[id number]
[2020-02-09] MEDS ORDERED: ONDANSETRON HCL 4 MG ORAL DISINTEGRATING TAB PO PRN (13:15)
--- NOTE | 2020-02-09 14:03 | NUR ---
patient discharged. telemetry removed. discharge instructions and patient aware of follow up appts needed. patient wheeled off unit to son's personal vehicle with all belongings.
--- NOTE | 2020-02-11 03:23 | Discharge Summary ---
ADMISSION DIAGNOSES: 1. Atypical chest pain. 2. Claudication. 3. Hypertension with coronary artery disease. 4. Type 2 diabetes. 5. Acute exacerbation of chronic obstructive pulmonary disease, present on admission. DISCHARGE DIAGNOSES: 1. Atypical chest pain. 2. Claudication. 3. Hypertension with coronary artery disease. 4. Type 2 diabetes. 5. Acute exacerbation of chronic obstructive pulmonary disease, present on admission. 6. Rule out acute coronary syndrome. 7. Rule out COVID. HISTORY: Hypertension, type 2 diabetes, CAD with previous stents, COPD, and breast cancer. SURGICAL HISTORY: Left breast lumpectomy, trigeminal neuralgia, cholecystectomy, hysterectomy, and stents. FAMILY HISTORY: CAD. SOCIAL HISTORY: Noncontributory. HOSPITAL COURSE: A 69-year-old female with cardiac history, presents with anterior chest pain/pressure for one day. She also complains of a dry cough for 6 months. She has tested negative for COVID several times at work. On admission, chest x-ray was negative. Troponins were negative x4. Cardiology was consulted. The patient was then taken for a stress test. Echo showed an EF of 50% to 55%. EKG showed normal sinus rhythm at a rate of 93. Bilateral lower extremity arterial Doppler was negative for stenosis. Coronavirus was negative and A1c was 7.6. Per Cardiology, the patient can discharge home. She will continue same home medicines. She will follow up with primary care in 1 to 2 weeks. The patient understands instructions and agrees to plan. Vital signs are stable. The patient is afebrile. Dictated by Selam Dao NP MD JACQUES Zhou/MODL /[id number]
== END 2020-02-09 13:38 | disposition home or self-care (01) ==
LOC: ER 14:22 → ERHOLD 17:08 → MED/SURG 18:06
PROVIDERS: ADMIT Internal Medicine; ATTEND Internal Medicine
DX: R07.89 Other chest pain (principal); I10 Essential (primary) hypertension; E11.9 Type 2 diabetes mellitus without complications; I25.10 Atherosclerotic heart disease of native coronary artery without angina pectoris; J44.1 Chronic obstructive pulmonary disease with (acute) exacerbation; I73.9 Peripheral vascular disease, unspecified; E78.5 Hyperlipidemia, unspecified; E66.9 Obesity, unspecified; Z68.35 Body mass index [BMI] 35.0-35.9, adult; Z91.041 Radiographic dye allergy status; Z85.3 Personal history of malignant neoplasm of breast; Z11.59 Encounter for screening for other viral diseases; Z95.5 Presence of coronary angioplasty implant and graft; Z82.49 Family history of ischemic heart disease and other diseases of the circulatory system; Z88.5 Allergy status to narcotic agent; Z88.8 Allergy status to other drugs, medicaments and biological substances; Z79.4 Long term (current) use of insulin
CPT/HCPCS: 36415 ×4; 71045; 78452; 80048 ×2; 80053 ×2; 80061 ×2; 81001; 82550 ×2; 82553 ×2; 82948 ×2; 83036; 83735; 84100; 84443; 84484 ×2; 85025 ×4; 85610; 85730; 93005; 93017; 93306; 93925; 99284; A9502; G0378 ×4; J2785; U0002

== ENCOUNTER 2023-08-16 10:43 | Emergency (ER) | payer OTHER, MEDICARE ==
[~2023-08-16] VITALS: Ht 162.6 cm; Wt 95.3 kg
[~2023-08-16 10:43] MED LIST changes: +ATIVAN0.5 MG PO; +ATORVASTATIN CA20 MG PO; +BENZONATATE100 MG PO; +CANDESARTAN CIL32 MG; +CEFDINIR300 MG PO; +DILT-XR240 MG; +ESCITALOPRAM OX20 MG; +FLUTICASONE P15.8 ML; +MECLIZINE HCL12.5 MG PO; +NEURONTIN100 MG PO; +RANEXA1000 MG PO; +TRESIBA FL100 UNIT/1 SC; +ZIPSOR25 MG
[2023-08-16 11:12] VITALS: O2SAT 100
[2023-08-16] MEDS ORDERED: SODIUM CHLORIDE FLUSH 10 ML SYR IV PRN (12:30)
[2023-08-16 12:48] LABS: BASOPHILS % 0.2 % (0.0-1.0); EOSINOPHILS # (AUTO) 0.2 (0.0-0.4); EOSINOPHILS % 1.5 % (0.0-6.0); HEMATOCRIT 37.2 % (34.2-44.1); HEMOGLOBIN 11.9 g/dL (12.0-16.0); LYMPHOCYTES # (AUTO) 2.1 (1.0-3.2); LYMPHOCYTES % 19.2 % (18.0-39.1); MEAN CORPUSCULAR HEMOGLOBIN 25.2 pg (28-32); MEAN CORPUSCULAR VOLUME 78.6 fL (81-99); MONOCYTES # (AUTO) 0.8 (0.2-0.8); MONOCYTES % 7.1 % (4.4-11.3); NEUTROPHILS # (AUTO) 7.9 (2.1-6.9); NEUTROPHILS % 71.7 % (38.7-80.0); PLATELET COUNT 229 x10e3/uL (140-360); RED BLOOD COUNT 4.73 x10e6/uL (3.6-5.1); RED CELL DISTRIBUTION WIDTH 15.5 % (11.7-14.4); WHITE BLOOD COUNT 10.98 x10e3/uL (4.8-10.8)
[2023-08-16 13:10] LABS: ALBUMIN 3.6 g/dL (3.5-5.0); ANION GAP 15.5 mmol/L (8-16); BILIRUBIN,TOTAL 0.7 mg/dL (0.2-1.2); CALCIUM 9.4 mg/dL (8.4-10.2); CREATININE, SERUM 1.36 mg/dL (0.57-1.11); POTASSIUM 4.5 mmol/L (3.5-5.1); TOTAL PROTEIN 7.3 g/dL (6.5-8.1)
[2023-08-16 13:11] LABS: CLARITY,URINE CLOUDY (CLEAR); COLOR,URINE YELLOW (YELLOW); LEUKOCYTE ESTERASE ,URINE TRACE (NEGATIVE); PH,URINE 5.5 (5 - 7)
[2023-08-16 13:12] LABS: BACTERIA,URINE MANY /HPF; BILIRUBIN,URINE NEGATIVE (NEGATIVE); EPITHELIAL CELLS,URINE MANY /LPF; GLUCOSE, URINE NEGATIVE (NEGATIVE); KETONES,URINE NEGATIVE (NEGATIVE); NITRITE,URINE NEGATIVE (NEGATIVE); PROTEIN,URINE DIPSTICK NEGATIVE (NEGATIVE); RBC,URINE 0-5 /HPF (0-5); URINE UROBILINOGEN 0.2 mg/dL (0.2 - 1); WBC,URINE (MAN) >50 /HPF (0-5)
[2023-08-16] MEDS ORDERED: IOPAMIDOL 370 MG/ML 100 ML INFUS..BTL INJ ONE (14:24)
[2023-08-16] MEDS ORDERED: CEFTRIAXONE 1 GM VIAL ONE (14:25)
[2023-08-16] MEDS ORDERED: CEFDINIR300 MG PO (15:04)
== END 2023-08-16 15:26 | disposition home or self-care (01) ==
LOC: ER 10:53
DX: R10.30 Lower abdominal pain, unspecified (principal); K57.90 Diverticulosis of intestine, part unspecified, without perforation or abscess without bleeding; N39.0 Urinary tract infection, site not specified; N28.9 Disorder of kidney and ureter, unspecified; K59.00 Constipation, unspecified; I10 Essential (primary) hypertension; E78.5 Hyperlipidemia, unspecified; R01.1 Cardiac murmur, unspecified; Z85.3 Personal history of malignant neoplasm of breast
CPT/HCPCS: 36415; 74176; 80053; 81001; 83690; 85025; 87086; 99284; J0696; Q9967

== ENCOUNTER 2023-11-19 18:00 | Emergency (ER) | payer OTHER, MEDICARE ==
[~2023-11-19] VITALS: Ht 162.6 cm; Wt 95.3 kg
[2023-11-19 18:51] LABS: BASOPHILS % 0.4 % (0.0-1.0); EOSINOPHILS # (AUTO) 0.3 (0.0-0.4); EOSINOPHILS % 4.4 % (0.0-6.0); HEMATOCRIT 40.9 % (34.2-44.1); HEMOGLOBIN 12.6 g/dL (12.0-16.0); LYMPHOCYTES # (AUTO) 2.4 (1.0-3.2); LYMPHOCYTES % 33.7 % (18.0-39.1); MEAN CORPUSCULAR HEMOGLOBIN 24.8 pg (28-32); MEAN CORPUSCULAR HGB CONC 30.8 g/dL (31-35); MEAN CORPUSCULAR VOLUME 80.5 fL (81-99); MONOCYTES # (AUTO) 0.5 (0.2-0.8); NEUTROPHILS # (AUTO) 3.9 (2.1-6.9); NEUTROPHILS % 54.4 % (38.7-80.0); PLATELET COUNT 222 x10e3/uL (140-360); RED BLOOD COUNT 5.08 x10e6/uL (3.6-5.1); RED CELL DISTRIBUTION WIDTH 16.1 % (11.7-14.4); WHITE BLOOD COUNT 7.12 x10e3/uL (4.8-10.8)
[2023-11-19 19:03] VITALS: TEMP 98.6
[2023-11-19 19:09] LABS: ALBUMIN 3.7 g/dL (3.5-5.0); BILIRUBIN,TOTAL 0.7 mg/dL (0.2-1.2); CALCIUM 9.4 mg/dL (8.4-10.2); CREATININE, SERUM 1.2 mg/dL (0.57-1.11); TOTAL PROTEIN 7.4 g/dL (6.5-8.1)
[2023-11-19 19:15] LABS: TROPONIN I 0.003 ng/mL (0-0.300)
[2023-11-19 20:28] VITALS: PULSE 80; RESP 19
[2023-11-19 20:44] VITALS: BP 164/90; PULSE 70; RESP 17; TEMP 98.7; O2SAT 100
== END 2023-11-19 20:46 | disposition home or self-care (01) ==
LOC: ER 18:20
DX: R53.83 Other fatigue (principal); I10 Essential (primary) hypertension; E11.9 Type 2 diabetes mellitus without complications; Z79.84 Long term (current) use of oral hypoglycemic drugs; Z79.4 Long term (current) use of insulin; R94.31 Abnormal electrocardiogram [ECG] [EKG]; Z79.899 Other long term (current) drug therapy
CPT/HCPCS: 36415; 71045; 80053; 82550; 83880; 84484; 85025; 93005; 99284

== ENCOUNTER 2024-05-01 18:34 | Emergency (ER) | payer OTHER, MEDICARE ==
[~2024-05-01] VITALS: Ht 162.6 cm; Wt 95.3 kg
[2024-05-01 18:39] VITALS: TEMP 98.4
[2024-05-01] MEDS: SODIUM CHLORIDE 0.9% 1000ML 1,000 ML IV STA (19:58)
[2024-05-01 20:09] LABS: BASOPHILS % 0.4 % (0.0-1.0); EOSINOPHILS # (AUTO) 0.2 (0.0-0.4); HEMATOCRIT 41.9 % (34.2-44.1); HEMOGLOBIN 12.4 g/dL (12.0-16.0); LYMPHOCYTES # (AUTO) 2.6 (1.0-3.2); LYMPHOCYTES % 25.5 % (18.0-39.1); MEAN CORPUSCULAR HEMOGLOBIN 25.1 pg (28-32); MEAN CORPUSCULAR HGB CONC 29.6 g/dL (31-35); MEAN CORPUSCULAR VOLUME 84.6 fL (81-99); MONOCYTES # (AUTO) 0.6 (0.2-0.8); MONOCYTES % 5.9 % (4.4-11.3); NEUTROPHILS # (AUTO) 6.7 (2.1-6.9); NEUTROPHILS % 65.8 % (38.7-80.0); PLATELET COUNT 232 x10e3/uL (140-360); RED BLOOD COUNT 4.95 x10e6/uL (3.6-5.1); RED CELL DISTRIBUTION WIDTH 15.9 % (11.7-14.4); WHITE BLOOD COUNT 10.17 x10e3/uL (4.8-10.8)
[2024-05-01 20:14] LABS: COLOR,URINE YELLOW (YELLOW)
[2024-05-01 20:15] LABS: BILIRUBIN,URINE NEGATIVE (NEGATIVE); CLARITY,URINE SL CLOUDY (CLEAR); GLUCOSE, URINE NEGATIVE (NEGATIVE); KETONES,URINE NEGATIVE (NEGATIVE); LEUKOCYTE ESTERASE ,URINE NEGATIVE (NEGATIVE); NITRITE,URINE NEGATIVE (NEGATIVE); PH,URINE 7 (5 - 7); PROTEIN,URINE DIPSTICK NEGATIVE (NEGATIVE); URINE UROBILINOGEN 0.2 mg/dL (0.2 - 1)
[2024-05-01 20:23] LABS: CORONAVIRUS COVID-19 AG NEGATIVE (NEGATIVE); INFLUENZA A AG NEGATIVE (NEGATIVE); INFLUENZA B AG NEGATIVE (NEGATIVE)
[2024-05-01 20:25] LABS: RBC,URINE 0-5 /HPF (0-5); WBC,URINE (MAN) 0-5 /HPF (0-5)
[2024-05-01 20:30] LABS: ALBUMIN 3.6 g/dL (3.5-5.0); ALBUMIN/GLOBULIN RATIO 0.9 (0.8-2.0); ANION GAP 16.4 mmol/L (8-16); BILIRUBIN,TOTAL 0.6 mg/dL (0.2-1.2); CALCIUM 9.2 mg/dL (8.4-10.2); CREATININE, SERUM 1.1 mg/dL (0.57-1.11); POTASSIUM 4.4 mmol/L (3.5-5.1); TOTAL PROTEIN 7.6 g/dL (6.5-8.1)
[2024-05-01 20:36] LABS: TROPONIN I 0.007 ng/mL (0-0.300)
[2024-05-01 20:57] VITALS: PULSE 77; RESP 17; O2SAT 99
== END 2024-05-01 22:05 | disposition home or self-care (01) ==
LOC: ER 18:43
DX: R51.9 Headache, unspecified (principal); R07.89 Other chest pain; E11.649 Type 2 diabetes mellitus with hypoglycemia without coma; I10 Essential (primary) hypertension; E78.5 Hyperlipidemia, unspecified; J45.909 Unspecified asthma, uncomplicated; G50.0 Trigeminal neuralgia; R01.1 Cardiac murmur, unspecified; Z11.52 Encounter for screening for COVID-19; Z85.3 Personal history of malignant neoplasm of breast; Z95.1 Presence of aortocoronary bypass graft
CPT/HCPCS: 36415; 70450; 71045; 80053; 81001; 82550; 83880; 84484; 85025; 87428; 93005; 99284; J7030

== ENCOUNTER 2025-01-11 08:58 | Emergency (ER) | payer OTHER, MEDICARE ==
[~2025-01-11] VITALS: Ht 162.6 cm; Wt 95.3 kg
[2025-01-11 09:31] VITALS: TEMP 98.2
[2025-01-11] MEDS ORDERED: KETOROLAC TROMETHAMINE 30 MG/ML VIAL IV STA (09:51)
[2025-01-11] MEDS ORDERED: HYDROCODONE/APAP 5MG-325MG TAB PO ONE (10:15)
[2025-01-11] MEDS ORDERED: KETOROLAC TROMETHAMINE 30 MG/ML VIAL ONE (10:36)
[2025-01-11] MEDS ORDERED: DUREZOL5 ML OP (11:13)
[2025-01-11] MEDS ORDERED: VITAMIN D32400 UNIT/ (11:13)
[2025-01-11] MEDS ORDERED: RANOLAZINE ER500 MG (11:13)
[2025-01-11] MEDS ORDERED: MOMETASONE FURO17 GM (11:13)
[2025-01-11] MEDS ORDERED: NOVOLOG100 UNIT/1 SC (11:13)
[2025-01-11] MEDS ORDERED: FLONASE ALLERG9.9 ML INH (11:13)
[2025-01-11] MEDS ORDERED: LIPITOR20 MG PO (11:13)
[2025-01-11] MEDS ORDERED: VENTOLIN HFA18 GM INH (11:13)
[2025-01-11] MEDS ORDERED: PROLENSA3 ML (11:13)
[2025-01-11] MEDS ORDERED: NEURONTIN300 MG PO (11:13)
[2025-01-11] MEDS ORDERED: INSULIN DE100 UNIT/2 SQ (11:13)
[2025-01-11] MEDS ORDERED: RIZATRIPTAN5 MG (11:13)
[2025-01-11] MEDS ORDERED: ASPIRIN81 MG PO (11:13)
[2025-01-11] MEDS ORDERED: PROTONIX20 MG PO (11:13)
[2025-01-11] MEDS ORDERED: COREG12.5 MG PO (11:13)
[2025-01-11] MEDS ORDERED: CYCLOSPORINE OPTH OP (11:13)
[2025-01-11] MEDS ORDERED: DILTIAZEM 24HR180 MG PO (11:13)
[2025-01-11] MEDS ORDERED: TRULICITY1.5 MG/0.5 (11:13)
[2025-01-11] MEDS ORDERED: LEXAPRO20 MG PO (11:13)
[2025-01-11] MEDS ORDERED: CELEBREX200 MG PO (11:13)
[2025-01-11] MEDS ORDERED: AMLODIPINE BESY10 MG PO (11:13)
[2025-01-11] MEDS ORDERED: MOUNJARO5 MG/0.5 M (11:13)
[2025-01-11 11:19] LABS: BASOPHILS % 0.3 % (0.0-1.0); EOSINOPHILS % 3.8 % (0.0-6.0); LYMPHOCYTES % 29.5 % (18.0-39.1); MONOCYTES % 6.0 % (4.4-11.3); NEUTROPHILS % 59.9 % (38.7-80.0); RED CELL DISTRIBUTION WIDTH 17.0 % (11.7-14.4)
[2025-01-11 11:40] LABS: EST GLOMERULAR FILTRATION RATE 51.0 ML/MIN (>=60)
[2025-01-11 11:52] LABS: LEUKOCYTE ESTERASE ,URINE TRACE (NEGATIVE); PROTEIN,URINE DIPSTICK NEGATIVE (NEGATIVE); URINE UROBILINOGEN 0.2 mg/dL (0.2 - 1)
[2025-01-11] MEDS: SODIUM CHLORIDE 0.9% 1000ML 1,000 ML IV ONE (11:59)
[2025-01-11] MEDS: TRAMADOL HCL 50 MG TAB PO ONE (12:06)
[2025-01-11 12:11] LABS: EPITHELIAL CELLS,URINE FEW /LPF
[2025-01-11] MEDS ORDERED: HYDRALAZINE HCL 20 MG/ML VIAL IV STA (13:12)
[2025-01-11] MEDS ORDERED: ULTRAM 50MG50 MG PO (13:15)
[2025-01-11 13:36] VITALS: BP 174/55; PULSE 77
[2025-01-11] MEDS: LABETALOL HCL 5 MG/ML 20ML VIAL IV STA (13:36)
[2025-01-11] MEDS: ONDANSETRON HCL INJ 2MG/ML 2ML 2 MG/ML VIAL IV STA (14:01)
[2025-01-11 14:02] VITALS: PULSE 72; RESP 18; O2SAT 100
== END 2025-01-11 14:23 | disposition home or self-care (01) ==
LOC: ER 09:54
DX: R10.31 Right lower quadrant pain (principal); I10 Essential (primary) hypertension; E78.5 Hyperlipidemia, unspecified; E11.9 Type 2 diabetes mellitus without complications; Z79.4 Long term (current) use of insulin; I25.10 Atherosclerotic heart disease of native coronary artery without angina pectoris; J45.909 Unspecified asthma, uncomplicated; Z85.3 Personal history of malignant neoplasm of breast
CPT/HCPCS: 36415; 74176; 80053; 81001; 83690; 85025; 99284; J1885; J3490; J7030